=== PATIENT | female | born 1940 | race Caucasian/White ===

== ENCOUNTER 2021-01-28 13:59 | Outpatient (RCR) | payer MEDICARE, SELFPAY ==
--- NOTE | 2021-01-28 15:12 | PTOPEVAL ---
Thank you for referring Nara Post to [facility].? The patient is scheduled to be seen for therapy? ____x/week for ___ weeks. Please review, sign, date and return this plan of care MIRZA. I agree with and certify that the following plan of care is medically necessary. Referring Physician Date Admitting Provider: Attending Provider: Salomón Meehan, MD Referring Provider: *PT Outpatient Evaluation Start: 01/28/21 14:09 Freq: Status: Active Protocol: Document 01/28/21 14:09 [facility] (Rec: 01/28/21 15:02 [facility] [id number]) Therapy Assessment Status Assessment Status Assessment Status Evaluation Evaluation Information Problem Diagnosis lumbar radiculopathy, L side Onset 11/28/20 Additional Evaluation Detail oswestry = 42% functionally declined Subjective Information patient reports she has been Query Text:As Reported By Patient/ having pain in the L posterior Family hip/buttock since before . she reports no injury or change in activity. she reports sudden onset of pain in the L posterior hip/ buttock. she reports she has never had this pain in the past. she reports the pain was going down her L Le, but has been happening less lately. she reports she has increased pain with riding in the car, getting up from a chair and trying to get moving. she reports she did have xrays of the lumbar spine. she reports she also began taking a few new meds recently. Prior Level of Function Comments Additional Prior Level of Function prior to november, no issues in Comments the lower back, L LE, and L buttock. she reports not having any issues on the R LE. Pain Assessment Timing of Pain Assessment Timing of Pain Assessment Assessment Pain Scale Pain Scale Used Numeric (1 - 10) Self Report Pain Assessment Left Lower Back Reported Pain Level 7 Pain Radiation Left Leg Greatest Pain Intensity 8 Pain Score Pain Score 7: Self Report Interventions Used Interventions Used By Clinicians Heat,Rest Pain Relief Interventions Used By Lying Supine Patient Cervical and Lumbar ROM Lumbar ROM Lumbar Flexion Ac
--- NOTE | 2021-02-27 15:04 | PTOPEVAL ---
Thank you for referring Nara Post to [facility].? The patient is scheduled to be seen for therapy? ____x/week for ___ weeks. Please review, sign, date and return this plan of care MIRZA. I agree with and certify that the following plan of care is medically necessary. Referring Physician Date Admitting Provider: Attending Provider: Salomón Meehan, Referring Provider: *PT Outpatient Evaluation Start: 01/28/21 14:09 Freq: Status: Active Protocol: Document 02/27/21 14:18 [facility] (Rec: 02/27/21 15:04 [facility] [id number]) Therapy Assessment Status Assessment Status Assessment Status Discharge Evaluation Information Problem Diagnosis lumbar radiculopathy, L side Onset 11/28/20 Additional Evaluation Detail oswestry = 22% functionally declined Subjective Information patient reports she feels Query Text:As Reported By Patient/ Good this date. she reports Family she has greatly improved since beginning therapy. she reports she is not compliant with her HEP, but reports she is un cleaning house and doing chores all day long that she doesnt have the energy. she reports her pain has been low except for on the nustep today she felt some pulling in the back of the L LE. Pain Assessment Timing of Pain Assessment Timing of Pain Assessment Assessment Pain Scale Pain Scale Used Numeric (1 - 10) Self Report Pain Assessment Left Lower Back Reported Pain Level 0 Greatest Pain Intensity 5 Pain Score Pain Score 0: Self Report Interventions Used Interventions Used By Clinicians Activity or ADL's,Education, Electrical Stimulation, Exercise,Heat,Rest Cervical and Lumbar Muscle Testing Lumbar Strength Upper Abdominal Strength 3+Fair+ Lower Abdominal Strength 3+Fair+ Lower Extremity Muscle Strength Testing Hip Strength Right Hip Flexion Strength 4 Good Hip Extension Strength 4 Good Hip Abduction Strength 4+ Good + Left Hip Flexion Strength 4 Good Hip Extension Strength 4 Good Hip Abduction Strength 4+ Good + Knee Strength Bilateral Knee Flexion Strength 5 Normal Knee Extension Strength 5 Normal Ankle Strength Bilateral Ankle Dorsiflexion Strength 5 Normal Ankle Plantarflexion Strength 5 Normal Muscle Length Testing Muscle Length Testing Left
== END 2021-02-27 18:00 | disposition home or self-care (01) ==
LOC: CHSPT 13:59
PROVIDERS: PCP Internal Medicine; Visit Provider Internal Medicine
DX: M54.50 Low back pain, unspecified (principal)
CPT/HCPCS: 97014; 97110; 97161; 97530; G0283

== ENCOUNTER 2021-09-18 16:28 | Emergency (ER) | payer MEDICARE, SELFPAY ==
--- NOTE | ~2021-09-18 | XR_ITS ---
EXAMINATION: XR ribs LT 2V INDICATION: Left chest pain TECHNIQUE: 3 views of the left ribs were obtained. COMPARISON: None. FINDINGS: Bone alignment is normal. No displaced rib fracture is identified. The left lung is clear. The cardiomediastinal silhouette is unremarkable. 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 IMPRESSION: 1. No evidence of displaced rib fracture. Reviewed, dictated and finalized at location A.
--- NOTE | 2021-09-18 16:34 | ED.FALL ---
HPI - Fall General Chief Complaint: Fall Stated Complaint: fell outside has left side chest and underarm Time Seen by Provider: 09/18/21 16:35 Source: patient and RN notes reviewed Mode of arrival: ambulatory Limitations: no limitations History of Present Illness complaint: fall Onset (ago): hour(s) (1) Fall from: standing Fall witnessed: yes, by family Place fall occurred: home Loss of consciousness: none Prolonged down time: no Symptoms prior to fall: none Context: tripped/slipped Location of injury: chest (left ribs) Severity: moderate Quality: dull and aching Associated symptoms (after fall): denies Related Data Home Medications Medication Instructions Recorded Confirmed gabapentin 100 mg capsule 100 mg PO DAILY 09/18/21 09/18/21 insulin glargine 100 unit/mL 18 unit subcut QAM 09/18/21 09/18/21 subcutaneous solution (Lantus U-100 Insulin) levothyroxine 75 mcg tablet 75 mcg PO DAILY 09/18/21 09/18/21 lovastatin 40 mg tablet 40 mg PO DAILY 09/18/21 09/18/21 metformin 500 mg tablet 500 mg PO BID 09/18/21 09/18/21 montelukast 10 mg tablet 10 mg PO DAILY 09/18/21 09/18/21 quinapril 10 mg tablet 10 mg PO DAILY 09/18/21 09/18/21 sitagliptin 100 mg tablet (Januvia) 100 mg PO DAILY 09/18/21 09/18/21 venlafaxine 75 mg capsule,extended 75 mg PO DAILY 09/18/21 09/18/21 release 24 hr Allergies Allergy/AdvReac Type Severity Reaction Status Date / Time naproxen Allergy Unknown Verified 09/18/21 16:45 Review of Systems Review of Systems: All systems reviewed & are unremarkable except as noted in HPI and below PMFSH Past Medical History Medical History (Updated 09/18/21 @ 17:05 by Salo Prince MD) Hyperlipidemia Hypertension Hypothyroidism Peripheral neuropathy Type 2 diabetes mellitus Surgical History Surgical History (Updated 09/18/21 @ 16:44 by Salo Prince MD) History of bilateral tubal ligation Social History Social History (Updated 09/18/21 @ 16:44 by Salo Prince MD) Smoking status: Never smoker Exam Const: General: healthy appearing, no acute distress and alert Nutritional Appearance: well nourished and obese morbidly obese Orientation/consciousness: patient oriented x3 Limitations: no limitations HENMT: Head: normal to inspection Ears: external ears normal Eyes: Conjunctivae: conjunctivae normal Pupils: Equal, round and reactive pupils present EOM: EOMs intact bilaterally Neck: Neck: normal visual inspection Chest: Chest palpation & inspection: tenderness rib left mid-axillary line involving the 6th rib and involving the 7th rib Resp: Effort & Inspection: normal respiratory effort Auscultation: clear to auscultation bilaterally Cardio: Rate: regular rate Rhythm: regular rhythm GI: GI Palp: Yes Soft to palpation and No Tenderness to palpation present (GI) Auscultation: normal bowel sounds Back/Spine/Pelvis: Cervical Spine: cervical ROM normal Thoracic/Lumbar Spine: thoraco-lumbar ROM normal Skin: General skin exam: normal color Rashes: no rashes Neuro: General: patient oriented x3, moves all extremities, no focal motor deficits and CN's II-XI intact bilaterally Speech: normal speech Gait exam (Neuro): Normal gait present Extrem: General: normal to inspection and no clubbing, cyanosis or edema Psych: Mental Status: mental status grossly normal Affect: normal affect Attitude: cooperative Discharge Plan Discharge Clinical Impression: Chest wall contusion Qualifiers: Encounter type: initial encounter Laterality: left Qualified Code(s): S20.212A - Contusion of left front wall of thorax, initial encounter Patient Disposition: Home, Self-Care Condition: Stable Instructions: Contusion in Adults (ED) Additional Instructions: use Tylenol and or Motrin as needed for pain. Take deep breaths to avoid pneumonia. Prescriptions: No Action metformin 500 mg tablet 500 mg PO BID venlafaxine 75 mg capsule,extended release 24hr 75 mg
[2021-09-18 16:42] VITALS: BP 123/81; PULSE 103; RESP 17; TEMP 36.3; O2SAT 98
[2021-09-18 17:05] VITALS: BP 123/81; PULSE 103; RESP 17; TEMP 36.3; O2SAT 98
== END 2021-09-18 17:08 | disposition home or self-care (01) ==
PROVIDERS: Emergency Provider Emergency Medicine; PCP Internal Medicine
DX: S20.212A Contusion of left front wall of thorax, initial encounter (principal); W19.XXXA Unspecified fall, initial encounter; E78.5 Hyperlipidemia, unspecified; I10 Essential (primary) hypertension; E03.9 Hypothyroidism, unspecified; E11.9 Type 2 diabetes mellitus without complications
CPT/HCPCS: 71100; 99283

== ENCOUNTER 2023-01-19 14:34 | Emergency (ER) | payer MEDICARE, SELFPAY ==
--- NOTE | ~2023-01-19 | CT_ITS ---
EXAMINATION: CT brain wo con DATE: 01/19/2023 15:44 INDICATION: Head injury. TECHNIQUE: Computed tomography (CT) of the head was performed without intravenous contrast. The mA wa s adjusted according to patient size. Iterative reconstruction technique was employed. The dose-lengt h product was 681.00 mGy-cm. COMPARISON: Head CT 12/07/2011 FINDINGS: There is an old infarct in left temporal occipital region. There is an old infarct involvin g left thalamus and posterior limb left internal capsule. There is a small old infarct in right front al lobe. There are scattered areas of low attenuation in the cerebral white matter. There is no intra cranial hemorrhage, acute infarction, or abnormal intracranial mass lesion. The ventricles are normal in size. There is mucosal thickening in the paranasal sinuses with volume loss in the maxillary sinu ses. There are likely changes of ocular lens replacement surgeries. The mastoid air cells are normal. IMPRESSION: 1. Old infarcts in the brain. 2. Moderate nonspecific cerebral white matter disease, which likely represents chronic small vessel i schemic disease. Reviewed, dictated and finalized at location A. OR [employer] NET DEVELOPER IMPRESSION: 1. Old infarcts in the brain. 2. Moderate nonspecific cerebral white matter disease, which likely represents chronic small vessel ischemic disease.
--- NOTE | ~2023-01-19 | CT_ITS ---
EXAMINATION: CT pelvis wo con DATE: 01/19/2023 15:44 INDICATION: Pelvis injury. TECHNIQUE: Computed tomography (CT) of the pelvis was performed without intravenous contrast. Automat ed exposure control and iterative reconstruction technique were employed. The dose-length product was 564.38 mGy-cm. COMPARISON: None FINDINGS: There is calcified atherosclerosis of the aorta and many of the other arteries. There is di verticulosis of the colon without evidence of diverticulitis. There are no pathologically enlarged ly mph nodes. There is no free intraperitoneal fluid. There is mild osteoarthritis of the hips. No fract ure. Osteitis pubis is noted. There is mild lumbar spondylosis. IMPRESSION: 1. No fracture. 2. Mild osteoarthritis of the hips. Reviewed, dictated and finalized at location A. ING ENGINEER
--- NOTE | ~2023-01-19 | XR_ITS ---
EXAMINATION: XR shoulder RT min 2V INDICATION: Right shoulder pain, initial encounter TECHNIQUE: Three views of the right shoulder are submitted. COMPARISON: None FINDINGS: There is an acute, traumatic, transverse surgical neck fracture of the proximal right humer us. The greater and lesser tuberosities appear to exist on separate fracture fragments. Glenohumeral alignment is normal. There is moderate osteoarthritis of the acromioclavicular joint. There is an age -indeterminate lateral fracture of the right ninth rib. IMPRESSION: 1. Comminuted fracture of the proximal right humerus. Reviewed, dictated and finalized at location B. H DIRECTOR
--- NOTE | ~2023-01-19 | XR_ITS ---
EXAMINATION: [id number] INDICATION: Right-sided chest pain TECHNIQUE: A frontal view of the chest and 3 views of the right ribs were obtained. COMPARISON: None. FINDINGS: There is an acute fracture of the proximal right humerus which is described on the dedicate d shoulder radiographs. There is an age-indeterminate lateral fracture of the right ninth rib. There is mild atelectasis of the left lung base. No pleural effusion or pneumothorax. The cardiomediastinal silhouette is normal. IMPRESSION: 1. Left basilar atelectasis. 2. Age indeterminate right ninth rib fracture. 3. Acute fracture of the proximal right humerus. Reviewed, dictated and finalized at location B. TRICIAN MARINE
[2023-01-19 14:34] VITALS: BP 130/46; PULSE 45; RESP 20; TEMP 36.5; O2SAT 96
--- NOTE | 2023-01-19 14:45 | ED.FALL ---
HPI - Fall General Chief Complaint: Fall Stated Complaint: fell Time Seen by Provider: 01/19/23 14:45 Source: patient Mode of arrival: ambulatory Limitations: no limitations History of Present Illness HPI Narrative: 82-year-old female with a history of diabetes mellitus, hypertension, dyslipidemia, hypothyroidism, and neuropathy with recurrent falls presented to the ER after she fell 10 30 this morning. She fell from standing position while trying to walk her dogs. She presents with -- head injury without any loss of consciousness. No neck or back pain -- right shoulder pain with decreased range of motion of the right shoulder. -- Right chest wall pain. Patient was able to stand up with assistance Onset (ago): hour(s) ( 5 hours ago) Fall from: standing Fall witnessed: no Place fall occurred: home Loss of consciousness: none Symptoms prior to fall: none Context: tripped/slipped Location of injury: head, chest and other ( right shoulder) Location of injury - extremities: Right: shoulder Severity: moderate Associated symptoms (after fall): unable to walk Related Data Home Medications Medication Instructions Recorded Confirmed gabapentin 100 mg capsule 100 mg PO HS 09/18/21 01/19/23 insulin glargine 100 unit/mL 18 unit subcut QAM 09/18/21 01/19/23 subcutaneous solution (Lantus U-100 Insulin) levothyroxine 75 mcg tablet 75 mcg PO DAILY 09/18/21 01/19/23 lovastatin 40 mg tablet 40 mg PO DAILY 09/18/21 01/19/23 montelukast 10 mg tablet 10 mg PO DAILY 09/18/21 01/19/23 venlafaxine 75 mg capsule,extended 75 mg PO DAILY 09/18/21 01/19/23 release 24 hr atorvastatin 80 mg tablet 80 mg PO DAILY 01/19/23 01/19/23 empagliflozin 10 mg tablet 10 mg PO DAILY 01/19/23 01/19/23 (Jardiance) levetiracetam 500 mg tablet 500 mg PO BID 01/19/23 01/19/23 metoprolol succinate 25 mg 25 mg PO DAILY 01/19/23 01/19/23 tablet,extended release 24 hr sacubitril 24 mg-valsartan 26 mg 1 tablet PO BID 01/19/23 01/19/23 tablet (Entresto) spironolactone 25 mg tablet 25 mg PO DAILY 01/19/23 01/19/23 Allergies Allergy/AdvReac Type Severity Reaction Status Date / Time naproxen Allergy Unknown Verified 01/19/23 15:02 Review of Systems Review of Systems: All systems reviewed & are unremarkable except as noted in HPI and below Constitutional: Constitutional: Reports as per HPI and Reports no additional constitutional complaints Eyes: Eyes: Reports as per HPI and Reports no additional eye complaints ENT: Reports system reviewed and no additional complaints, except as documented and Reports as per HPI Cardiovascular: Cardiovascular: Reports as per HPI Respiratory: Respiratory: Reports as per HPI and Reports no additional respiratory complaints Gastrointestinal: Gastrointestinal: Reports as per HPI and Reports no additional gastrointestinal complaints Genitourinary: Genitourinary: Reports no additional female genitourinary complaints Musculoskeletal: Musculoskeletal: Reports no additional musculoskeletal complaints and Reports as per HPI Integumentary/Breasts: Skin/Breast: Reports system reviewed and no additional complaints, except as docu and Reports as per HPI Neurologic: Reports system reviewed and no additional complaints, except as documented and Reports as per HPI Psychiatric: Psychiatric: Reports no additional psychiatric complaints and Reports as per HPI Endocrine: Endocrine: Reports no additional endocrine complaints and Reports as per HPI Hematologic/Lymphatic: Hematologic/Lymphatic: Reports no additional hematologic/lymphatic complaints and Reports as per HPI Allergic/Immunologic: Allergic/Immunologic: Reports no additional allergic/immunologic complaints and Reports as per HPI [facility] Past Medical History Medical History Hyperlipidemia Hypertension Hypothyroidism Peripheral neuropathy Type 2 diabetes mellitus Surgical History Surgical History (Review
[2023-01-19] MEDS: HYDROcodone/acetaminophen (*CRX) 5-325 MG TABLET 1 TAB PO (16:23)
[2023-01-19 16:41] VITALS: BP 128/48; PULSE 50; RESP 20; TEMP 36.7; O2SAT 96
== END 2023-01-19 16:43 | disposition home or self-care (01) ==
PROVIDERS: Emergency Provider Internal Medicine Critical Care Medicine; PCP Internal Medicine
DX: R07.89 Other chest pain (principal); S42.201A Unspecified fracture of upper end of right humerus, initial encounter for closed fracture; E11.9 Type 2 diabetes mellitus without complications; I10 Essential (primary) hypertension; E03.9 Hypothyroidism, unspecified; Z79.899 Other long term (current) drug therapy; Z79.4 Long term (current) use of insulin; W18.30XA Fall on same level, unspecified, initial encounter; Y93.K1 Activity, walking an animal
CPT/HCPCS: 70450; 71101; 72192; 73030; 99284; A4565; A9270

== ENCOUNTER 2023-02-12 18:19 | Inpatient (IN) | payer MEDICARE, SELFPAY ==
--- NOTE | ~2023-02-12 | CT_ITS ---
EXAMINATION: CTA chest PE protocol DATE: 02/18/2023 17:24 INDICATION: shortness of breath, chest pain TECHNIQUE: Computed tomography angiography (CTA) of the chest was performed with 100 mL Omnipaque-350 intravenous contrast timed to evaluate the pulmonary arteries. Coronal maximum intensity projection 3D-reconstructions were created by the technologist. The dose-length product (DLP) was 795.98 mGy-cm. Automated exposure control and iterative reconstruction technique were employed. COMPARISON: X-ray chest 02/18/2023. FINDINGS: Lung parenchyma and airways: Motion artifact. Dependent scar/atelectasis. Pleura: Small volume right pleural fluid collection. Thoracic inlet, axillae and chest wall: Unremarkable. Thoracic aorta: Mild arch calcification. Mediastinum: Normal. Heart and pericardium: Mitral calcification. Aortic valve calcification. Mild cardiomegaly. No perica rdial effusion. RV/LV ratio 1.3. Coronary artery calcifications: . Upper abdomen: Hepatic vein reflux. Distended gallbladder. Bones: Acute comminuted proximal right humeral fracture. Pulmonary arteries: Study quality: Adequate. Acute pulmonary emboli in the distal left and right main pulmonary arteries, extending into segmental and subsegmental branches of all lobes. IMPRESSION: Acute pulmonary emboli in the distal bilateral main pulmonary arteries extending into segmental and s ubsegmental branches of all lobes. Large clot burden. Evidence of right heart strain. RV/LV ratio 1.3 . Small right pleural effusion. Gallbladder hydrops, correlate with right upper quadrant pain and biliary labs. Acute comminuted proximal right humeral fracture. Results reported telephonically to Brenda Barrera RN by Dr. Loza at 5:39 PM on 02/18/2023. Reviewed, dictated and finalized at location K. SORTER IMPRESSION: Acute pulmonary emboli in the distal bilateral main pulmonary arteries extendin g into segmental and subsegmental branches of all lobes. Large clot burden. Lanette dence of right heart strain. RV/LV ratio 1.3. Small right pleural effusion. Gallbladder hydrops, correlate with right upper quadrant pain and biliary labs. Acute comminuted proximal right humeral fracture. Results reported telephonically to Brenda Barrera RN by Dr. Loza at 5:39 PM on 02/18/2023.
--- NOTE | ~2023-02-12 | XR_ITS ---
EXAMINATION: XR ankle RT min 3V DATE: 02/16/2023 10:45 INDICATION: Right ankle pain and swelling. Fall. TECHNIQUE: 4 views of right ankle were obtained. COMPARISON: None. FINDINGS: Bone alignment is normal. No fracture. Joint spaces are normal. There are enthesophytes at the posterior and plantar aspects of calcaneal tuberosity. Ankle soft tissue swelling is noted. IMPRESSION: 1. No fracture. Reviewed, dictated and finalized at location A. R RESOURCE MANAGER IMPRESSION: 1. No fracture.
--- NOTE | ~2023-02-12 | XR_ITS ---
Portable chest x-ray Comparison: 02/18/2023 Clinical History: PICC line placement Findings: Left-sided PICC line is in place, tip just in the SVC. There is probable minimal left basi lar atelectatic change or scarring. Right lung clear. No pneumothorax. Cardiomediastinal silhouette is stable. Bones and soft tissues are unremarkable. Impression: Left-sided PICC line in satisfactory position, as above. Probable left basilar atelectatic change. Reviewed, dictated and finalized at location . MAGENTO DEVELOPER Impression: Left-sided PICC line in satisfactory position, as above. Probable left basilar atelectatic change.
--- NOTE | ~2023-02-12 | XR_ITS ---
AP view of the pelvis and AP and lateral views of the right hip Clinical history: Pain Findings: No acute fracture or dislocation is seen. Osseous alignment is anatomic. Bilateral hip and SI joint spaces are preserved. Soft tissues are unremarkable. Impression: No significant abnormality is seen. Reviewed, dictated and finalized at [facility]. DER LABORER Impression: No significant abnormality is seen.
--- NOTE | ~2023-02-12 | CT_ITS ---
CT head without contrast Indication: Head injury COMPARISON: 01/19/2023 Technique: Serial scans were obtained through the brain without the administration of contrast. Dose reduction technique was used on this scan by utilizing automated exposure control and iterative recon struction technique. The dose-length product (DLP) was 605.33 mGy-cm. Findings: There is no evidence of intracranial hemorrhage, mass lesion, or acute infarct. Stable deli cutter slicer maxime left occipital lobe infarct. The ventricles and subarachnoid spaces are dilated, consistent with mild atrophy. Low attenuation regions are seen within the periventricular white matter bilaterally, likely representing changes from chronic microvascular ischemic disease. There is no evidence of rebekah a, mass effect or midline shift. Stable bilateral maxillary sinus disease. The remaining visualized paranasal sinuses and mastoid air cells are clear. Impression: No intracranial hemorrhage, mass, or acute infarct. Stable occipital lobe infarct, chronic. Atrophy and chronic white matter changes, as above. Reviewed, dictated and finalized at [facility]. PERSON Impression: No intracranial hemorrhage, mass, or acute infarct. Stable occipital lobe infar ct, chronic. Atrophy and chronic white matter changes, as above.
--- NOTE | ~2023-02-12 | XR_ITS ---
Left ankle Technique: AP, oblique, and lateral views were obtained. Clinical History: Pain Findings: No acute fracture or dislocation is seen. Osseous alignment is anatomic. Ankle mortise and other visualized joint spaces are preserved. Soft tissues are otherwise unremarkable. Impression: Unremarkable left ankle. Reviewed, dictated and finalized at location . RATORY DIRECTOR Impression: Unremarkable left ankle.
--- NOTE | ~2023-02-12 | US_ITS ---
Duplex Sonography of the bilateral lower extremities: Indication: Swelling, pulmonary embolus Sagittal and transverse B-mode images as well as color-flow imaging were performed on the right and l eft femoral and popliteal veins. B-mode examination was done without and with compression in the tra nsverse plane. There is good visualization of the bilateral common femoral, proximal profunda femora l, superficial femoral, greater saphenous, and popliteal veins. Normal flow was seen on color-flow im aging. Normal compressibility was demonstrated. Visualized calf veins are also patent. Impression: No evidence of deep vein thrombosis involving either lower extremity. Reviewed, dictated and finalized at location M. K TOP MACHINE OPERATOR Impression: No evidence of deep vein thrombosis involving either lower extremit y.
--- NOTE | ~2023-02-12 | MR_ITS ---
EXAMINATION: MR cervical spine wo con DATE: 02/14/2023 12:40 INDICATION: Head injury. TECHNIQUE: Magnetic resonance imaging (MRI) of the cervical spine was performed without intravenous c ontrast. COMPARISON: CT cervical spine 02/12/23, 12/07/2011 FINDINGS: There is 5 degrees levocurvature of cervicothoracic spine. There is 2 mm anterolisthesis of C4 on C5. There is kyphosis of cervical spine. There are compression fractures of the inferior endpl ates of C6, C7, and T1 with less than 1/5 loss of height and edema-like marrow signal intensity. Ther e is moderately decreased disc height at C3-C4 and C5-C6 and mildly decreased disc height at C6-C7. T he spinal cord signal intensity is normal.. The following disc levels are specifically discussed: C2-C3: There is a central protrusion. There is no uncovertebral joint osteoarthritis. There is modera te right and severe left facet joint osteoarthritis. There is mild left neural foraminal stenosis. Th ere is no central canal stenosis. C3-C4: There is a central extrusion. There is severe right and mild left uncovertebral joint osteoart hritis. There is mild left facet joint osteoarthritis. There is ankylosis of right facet joint with s evere hypertrophy. There is moderate right neural foraminal stenosis. There is mild central canal sabiha nosis. C4-C5: The disc is bulging. There is mild bilateral uncovertebral joint osteoarthritis. There is anastacio re right and mild left facet joint osteoarthritis. There is mild right neural foraminal stenosis. The re is mild central canal stenosis. C5-C6: The disc is bulging. There is severe right and moderate left uncovertebral joint osteoarthriti s. There is severe right and mild left facet joint osteoarthritis. There is mild right neural foramin al stenosis. There is mild central canal stenosis. C6-C7: The disc is bulging. There is mild bilateral uncovertebral joint osteoarthritis. There is mild bilateral facet joint osteoarthritis. There is mild left neural foraminal stenosis. There is mild ce ntral canal stenosis. C7-T1: The disc does not extend beyond the endplate margin. There is no uncovertebral joint osteoarth ritis. There is moderate right and mild left facet joint osteoarthritis. There is mild right neural f oraminal stenosis. There is no central canal stenosis. IMPRESSION: 1. Acute/subacute compression fractures of C6, C7, and T1 with less than 1/5 loss of height. 2. Moderate cervical spondylosis. Reviewed, dictated and finalized at location A. STOR INSPECTOR IMPRESSION: 1. Acute/subacute compression fractures of C6, C7, and T1 with less than 1/5 lo ss of height. 2. Moderate cervical spondylosis.
--- NOTE | ~2023-02-12 | CT_ITS ---
Noncontrast CT scan of the cervical spine Technique: Multiple contiguous axial [address] images of the cervical spine were obtained and rec onstructed in 2D sagittal and coronal planes on the acquisition scanner. Dose reduction technique was used on this scan by utilizing automated exposure control, adjustment of the mA and/or kV according to patient size. The dose-length product (DLP) was 517.41 mGy-cm. Clinical History: Pain Findings: Possible acute compression/impaction fracture at the anteroinferior aspect of C6 vertebral body. No other fracture evident. There is reversal normal cervical lordosis, with minimal grade 1 ant erolisthesis of C4 over C5, and of C5 over C6. There is moderate degenerative disc narrowing at C5-C6 and C6-C7. There are degenerative change of the articulation of the odontoid process with the anteri or arch of C1. There is right neural foraminal narrowing at C3-C4 prominent right facet arthropathy. There is fusion of the right C3-C4 facet joint. No prevertebral soft tissue swelling. Impression: Questionable acute compression/impaction fracture deformity at the anterior inferior aspect of the C6 vertebral body, versus possibly chronic loss of height and chronic irregularity. Consider MR to asse ss for acute marrow edema. Reversal of the normal cervical lordosis, with minimal grade 1 anterolisthesis of C4 over C5, and of C5 over C6. Degenerative spondylosis, as above. Reviewed, dictated and finalized at [facility]. ICULTURAL SPECIALTY GROWER Impression: Questionable acute compression/impaction fracture deformity at the anterior inf erior aspect of the C6 vertebral body, versus possibly chronic loss of height a nd chronic irregularity. Consider MR to assess for acute marrow edema. Reversal of the normal cervical lordosis, with minimal grade 1 anterolisthesis of C4 over C5, and of C5 over C6. Degenerative spondylosis, as above.
--- NOTE | ~2023-02-12 | XR_ITS ---
EXAMINATION: XR chest 1V portable DATE: 02/18/2023 10:15 INDICATION: New oxygen requirement TECHNIQUE: frontal view of the chest was obtained. COMPARISON: Chest radiograph dated 02/18/2023 at 6:55 AM FINDINGS: No change in mild elevation the left hemidiaphragm with bandlike atelectasis at the left lung base. N o airspace opacities, pulmonary edema, pleural effusion or pneumothorax. The cardiomediastinal silhou ette is normal. Again seen is a recent-appearing comminuted fractures of the proximal right humerus. IMPRESSION: 1. Unchanged left basilar atelectasis with mild elevation the left hemidiaphragm. Reviewed, dictated and finalized at location A. PTION AGENT IMPRESSION: 1. Unchanged left basilar atelectasis with mild elevation the left hemidiaphrag m.
--- NOTE | ~2023-02-12 | XR_ITS ---
Right Knee Technique: AP, lateral, and oblique views were obtained. Clinical History: Pain Findings: No fracture or dislocation is seen. Osseous alignment is anatomic. Joint spaces are preserv ed without degenerative or erosive change. Soft tissues are unremarkable. No joint effusion is seen. Impression: Unremarkable right knee radiographs. Reviewed, dictated and finalized at [facility]. T HOST Impression: Unremarkable right knee radiographs.
--- NOTE | ~2023-02-12 | XR_ITS ---
Portable chest x-ray Comparison: 02/12/2023 Clinical History: Chest pain Findings: There is probable linear left basilar atelectasis, otherwise clear lungs. Cardiomediastin al silhouette is stable. There is an acute, comminuted fracture involving the surgical neck and great er tuberosity of the proximal right humerus.. Impression: Acute, comminuted fracture involving the surgical neck and greater tuberosity of the proximal right h umerus. Linear left basilar atelectasis or scarring, otherwise clear lungs. Reviewed, dictated and finalized at location M. E DESIGNER Impression: Acute, comminuted fracture involving the surgical neck and greater tuberosity o f the proximal right humerus. Linear left basilar atelectasis or scarring, otherwise clear lungs.
--- NOTE | ~2023-02-12 | XR_ITS ---
Portable chest x-ray Comparison: None Clinical History: Syncope Findings: Probable minimal left pleural effusion. Right lung clear. Cardiomediastinal silhouette is stable. Bones and soft tissues are unremarkable. Impression: Minimal left pleural effusion. Reviewed, dictated and finalized at location . PASTE MACHINE OPERATOR Impression: Minimal left pleural effusion.
[2023-02-12 18:19] VITALS: BP 107/86; PULSE 72; RESP 22; TEMP 36.4; O2SAT 97
--- NOTE | 2023-02-12 18:28 | ECG_ITS ---
Measurements Intervals [place] Rate: 71 P: 55 KS: 196 QRS: -33 QRSD: 171 T: 138 QT: 414 QTc: 453 Interpretive Statements SINUS RHYTHM LEFT AXIS DEVIATION LEFT BUNDLE BRANCH BLOCK BASELINE ARTIFACT- I, II, III, AVR, AVL, AVF ABNORMAL ECG NO PREVIOUS ECG AVAILABLE FOR COMPARISON Electronically Signed On 02-12-2023 19:08:25 COKE LOADER by Nelson Luna D.O.
[2023-02-12 18:39] LABS: Basophils Percent Auto 0.5 % (0.2-1.2); Eosinophils Absolute Auto 0.3 K/mm3 (0-0.3); Eosinophils Percent Auto 4.1 % (0-4.4); Hematocrit 37.5 % (37.0-47.0); Hemoglobin 11.6 g/dL (12.0-15.0); Immature Granulocyte Absolute 0.04 K/mm3 (0.00-0.031); Immature Granulocyte Percent A 0.6 % (0-0.5); Lymphocytes Absolute Auto 1.64 K/mm3 (0.9-3.2); Lymphocytes Percent Auto 25.2 % (18.3-44.2); Mean Corpuscular HGB Conc 30.9 g/dl (32-36); Mean Corpuscular Hemoglobin 29.1 pg (26-34); Mean Corpuscular Volume 94.2 fl (80-100); Mean Platelet Volume 9.3 fl (7.4-10.4); Monocytes Absolute Auto 0.6 K/mm3 (0.1-0.6); Monocytes Percent Auto 8.4 % (2.6-8.5); Neutrophils Percent Auto 61.2 % (45.5-73.1); Platelet Count Result 248 k/mm3 (150-375); Red Blood Count 3.98 M/mm3 (4.2-5.4); Red Cell Distribution Width 14.4 % (11.5-14.5); White Blood Count 6.5 K/mm3 (4.5-10.0)
[2023-02-12 19:02] LABS: Alanine Aminotransferase 43 U/L (6-35); Albumin Level 4.2 g/dL (3.5-5.1); Alkaline Phosphatase 229 U/L (38-126); Anion Gap 12 mmol/L (8-16); Aspartate Amino Transferase 37 U/L (14-36); Bilirubin,Total 0.6 mg/dL (0.2-1.3); Blood Urea Nitrogen 51 mg/dL (7-17); Calcium 9.5 mg/dL (8.4-10.2); Carbon Dioxide 19 mmol/L (22-30); Chloride 105 mmol/L (98-107); Estimated CRCL calculation 16 ml/min; Estimated Glomerular Filt Rate 18; Glucose 170 mg/dL (65-110); Potassium 5.3 mmol/L (3.4-5.0); Sodium 136 mmol/L (137-145)
--- NOTE | 2023-02-12 19:27 | PC.NURSE ---
Assumed care of pt from TRELL Duncan at this time.
[2023-02-12] MEDS: SODIUM CHLORIDE 0.9% IV 1,000 ML 999 ML IV CONT (20:13)
[2023-02-12] MEDS: TETANUS,DIPHTHERIA,AC PERTUSSIS ADULT (0.5 ML) BOOSTRIX IM (20:13)
[2023-02-12 20:14] VITALS: BP 132/56; PULSE 71; RESP 15; O2SAT 95
[2023-02-12 20:44] LABS: Appearance Urine Cloudy (Clear); Bacteria Urine 4+ /hpf; Bilirubin Urine Negative (Negative); Blood Urine Negative (Negative); Color Urine Yellow (Yellow); Glucose Urine UA 3+ mg/dL (Negative); Ketones Urine Negative (Negative); Leukocyte Esterase Ur 1+ LEU/UL (Negative); Nitrate Urine Negative (Negative); Non Pathogenic Casts 0-2; Protein Urine 1+ mg/dL (Negative); RBC Urine 0-2 /hpf (0-2); Specific Grav Ur 1.021 (1.001-1.035); Squamous Epithelial Cell Urine None seen /hpf (Few); Urobilinogen Urine 0.2 mg/dL (<2.0); WBC Urine 51-100 /hpf
--- NOTE | 2023-02-12 20:47 | ED.GENADULT ---
HPI - General Adult General Chief complaint: Syncope Stated complaint: syncope Time Seen by Provider: 02/12/23 19:16 History of Present Illness HPI narrative: Patient is 83-year-old female who presents emergency department with chief complaint of possible syncopal episode. Patient reports that she started feeling dizzy which she described as a strain sensation in her head the patient states she then fell to the ground and struck her head. The patient reports that she had bleeding from the back of her scalp is unsure whether she was on blood thinners she does report that she has had a prior stroke in the past the patient reports that about 2 weeks ago she had had a ground level fall secondary to tripping and had a fracture in her right humerus the patient states that she has pain in her right hip right knee and left ankle after the injury is unsure of her last tetanus status. Related Data Home Medications Medication Instructions Recorded Confirmed gabapentin 100 mg capsule 100 mg PO HS 09/18/21 01/19/23 insulin glargine 100 unit/mL 18 unit subcut QAM 09/18/21 01/19/23 subcutaneous solution (Lantus U-100 Insulin) levothyroxine 75 mcg tablet 75 mcg PO DAILY 09/18/21 01/19/23 lovastatin 40 mg tablet 40 mg PO DAILY 09/18/21 01/19/23 montelukast 10 mg tablet 10 mg PO DAILY 09/18/21 01/19/23 venlafaxine 75 mg capsule,extended 75 mg PO DAILY 09/18/21 01/19/23 release 24 hr atorvastatin 80 mg tablet 80 mg PO DAILY 01/19/23 01/19/23 empagliflozin 10 mg tablet 10 mg PO DAILY 01/19/23 01/19/23 (Jardiance) levetiracetam 500 mg tablet 500 mg PO BID 01/19/23 01/19/23 metoprolol succinate 25 mg 25 mg PO DAILY 01/19/23 01/19/23 tablet,extended release 24 hr sacubitril 24 mg-valsartan 26 mg 1 tablet PO BID 01/19/23 01/19/23 tablet (Entresto) spironolactone 25 mg tablet 25 mg PO DAILY 01/19/23 01/19/23 Allergies Allergy/AdvReac Type Severity Reaction Status Date / Time naproxen Allergy Unknown Verified 02/12/23 18:32 Review of Systems Review of Systems: A 10 system review of systems was completed on the patient and is negative except for what is stated in the HPI. Nursing and ancillary documentation was reviewed. [facility] Past Medical History Medical History Hyperlipidemia Hypertension Hypothyroidism Peripheral neuropathy Type 2 diabetes mellitus Surgical History Surgical History History of bilateral tubal ligation Social History Social History Smoking status: Never smoker Exam Narrative: GENERAL: Well-appearing, well-nourished, and in no acute distress. HEAD: Normocephalic, 1 cm laceration of the scalp. EYES: PERRLA and EOMI. ENT: Nares clear, no rhinorrhea or epistaxis. Mucous membranes moist. NECK: Supple. CHEST: Clear to auscultation. No respiratory distress. HEART: Regular rate and rhythm. No murmur heard. Normal peripheral pulses. ABDOMEN: Soft, nontender, nondistended, normal active bowel sounds. EXTREMITIES: Normal range of motion. No edema. Right upper extremity is in sling tenderness palpation of the right hip, right knee and left ankle no deformity SKIN: Warm, dry, no rash. NEURO: No focal deficits. Alert and oriented x3. PSYCH: Normal mood and affect. Course Vital Signs Vital signs: Vital Signs Temperature 36.4 C 02/12/23 18:19 Pulse Rate 72 02/12/23 18:19 Respiratory Rate 22 H 02/12/23 18:19 Blood Pressure 107/86 02/12/23 18:19 Pulse Oximetry 97 02/12/23 18:19 Oxygen Delivery Room Air 02/12/23 18:19 Temperature 36.4 C 02/12/23 18:19 Pulse Rate 71 02/12/23 20:14 Respiratory Rate 15 02/12/23 20:14 Blood Pressure 132/56 L 02/12/23 20:14 Pulse Oximetry 95 02/12/23 20:14 Oxygen Delivery Room Air 02/12/23 18:19 Procedures Laceration Laceration
[2023-02-12 20:48] LABS: Add Urine Microscopic? YES
[2023-02-12 20:49] LABS: Magnesium 2.4 mg/dL (1.6-2.3)
[2023-02-12 20:50] LABS: Lactic Acid Reflex 0.9 mmol/L (0.7-2.0)
[2023-02-12 21:01] LABS: Troponin I < 0.012 ng/mL (0.000-0.034)
[2023-02-12 21:07] LABS: Procalcitonin 0.1 ng/mL
[2023-02-12 21:38] VITALS: BP 110/83; PULSE 105; RESP 18; TEMP 37.1; O2SAT 92
[2023-02-12 22:07] VITALS: BP 109/92; PULSE 74; RESP 20; O2SAT 97
[2023-02-12 22:24] VITALS: PULSE 71; RESP 16; O2SAT 100
--- NOTE | 2023-02-12 22:38 | PC.NURSE ---
This patient, Nara Post, was admitted to [facility] Surg Room 304-01. Patient/family oriented to hospital policies and general routines including ID bracelet, bed and alarms, visiting hours, pain management, procedures, bathroom and other care routines, personal items, smoking policy, room service/diet, and visiting hours. Information on how to activate the Rapid Response Team has been discussed. Patient/Family are encouraged to report perceived risks to care and to ask questions if they do not understand what they are told or what they should do.
[2023-02-12 22:51] VITALS: BMI 31.4
--- NOTE | 2023-02-12 22:53 | PC.NURSE ---
called Vishnu, verified medication in computer is up to date.
[2023-02-12] MEDS: SODIUM CHLORIDE 0.9% IV 1,000 ML 75 ML IV CONT (22:55)
[2023-02-12 23:00] VITALS: BP 148/51; PULSE 88; RESP 18; TEMP 36; O2SAT 92
--- NOTE | 2023-02-12 23:19 | PC.NURSE ---
reverified medication with Daughter Shannan Garcia,
--- NOTE | 2023-02-12 23:24 | PC.NURSE ---
patient states wants daughter added to contacts, informed battery charger conveyor line James
[2023-02-12] MEDS: ONDANSETRON INJ 4 MG/2 ML VIAL IV PUSH (23:25)
[2023-02-13] VITALS (10 sets, daily range): BP systolic 119–131; BP diastolic 44–52; PULSE 79–94; RESP 14–20; TEMP 35.7–36.2; O2SAT 90–92
--- NOTE | 2023-02-13 01:11 | PM.IMHP ---
H&P: HPI History of Present Illness Date/Time: 02/13/23 01:11 Chief Complaint: [place] lightheaded and fell Narrative: 83-year-old female with a past medical history Review of Systems Review of Systems: 12 systems were reviewed with pertinent positives and negatives per HPI. Except as documented in the HPI, all other systems were reviewed and are negative. [facility] Past Medical History Medical History (Updated 02/13/23 @ 07:33 by Silvia Jamil DO) CVA (cerebral vascular accident) Hyperlipidemia Hypertension Hypothyroidism Peripheral neuropathy Type 2 diabetes mellitus Vitamin D deficiency Surgical History Surgical History (Updated 02/13/23 @ 07:33 by Silvia Jamil DO) History of bilateral tubal ligation Status post cataract extraction of both eyes with insertion of intraocular lens Social History Social History (Updated 02/13/23 @ 07:38 by Silvia Jamil DO) Social History: Patient lives at home with her of over 60 years. She stated that she briefly smoked for a couple of years when she was young. She denies any significant alcohol use. She ambulates with a Rollator. Code status: DNR/DNI (per patient request) Surrogate decision maker: Smoking status: Former smoker Alcohol intake: never Substance use: never Do You Feel Safe in your Home?: Yes Lack of Transportation: No Lack of Food: Never True Current Housing: I Have Housing Concerned About Future Housing: No Difficulty Paying Gas/Electric Bills: No Difficulty Paying for Meds: No Currently Unemployed: No Education: High School Diploma/GED Difficulty w/ Childcare or Family Care: No Spiritual care concerns: No Meds Home Medications and Allergies Home Medications Medication Instructions Recorded Confirmed Type gabapentin 100 mg capsule 100 mg PO HS 09/18/21 02/12/23 History insulin glargine 100 unit/mL 18 unit subcut QAM 09/18/21 02/12/23 History subcutaneous solution (Lantus U-100 Insulin) levothyroxine 75 mcg tablet 75 mcg PO DAILY 09/18/21 02/12/23 History montelukast 10 mg tablet 10 mg PO DAILY 09/18/21 02/12/23 History venlafaxine 75 mg capsule,extended 75 mg PO DAILY 09/18/21 02/12/23 History release 24 hr atorvastatin 80 mg tablet 80 mg PO DAILY 01/19/23 02/12/23 History empagliflozin 10 mg tablet 10 mg PO DAILY 01/19/23 02/12/23 History (Jardiance) levetiracetam 500 mg tablet 500 mg PO BID 01/19/23 02/12/23 History metoprolol succinate 25 mg 25 mg PO DAILY 01/19/23 02/12/23 History tablet,extended release 24 hr sacubitril 24 mg-valsartan 26 mg 1 tablet PO BID 01/19/23 02/12/23 History tablet (Entresto) spironolactone 25 mg tablet 25 mg PO DAILY 01/19/23 02/12/23 History cholecalciferol (vitamin D3) 25 25 mcg PO DAILY 02/12/23 02/12/23 History mcg (1,000 unit) tablet Allergies Allergy/AdvReac Type Severity Reaction Status Date / Time naproxen Allergy Unknown Verified 02/12/23 18:32 Vital Signs Vital Signs - 24 hr 02/12/23 18:19 02/12/23 20:14 02/12/23 21:38 Temperature 97.6 F 98.7 F Pulse Rate 72 71 105 H Respiratory Rate 22 H 15 18 Blood Pressure 107/86 132/56 L 110/83 Pulse Oximetry 97 95 92 Oxygen Delivery Room Air 02/12/23 22:07 02/12/23 22:24 02/12/23 23:00 Temperature 96.8 F L Pulse Rate 74 71 88 Respiratory Rate 20 16 18 Blood Pressure 109/92 H 148/51 H Pulse Oximetry 97 100 92 Oxygen Delivery 02/13/23 00:00 Temperature Pulse Rate 84 Respiratory Rate Blood Pressure Pulse Oximetry Oxygen Delivery Exam Narrative: Weight is 85.5 kg BMI 31.4 Const: Other: No acute distress, obese, appears stated age, well groomed, sitting up in bed with head of bed at 30 degree HENMT: Other: Patient has small laceration posterior parietal/occipital with [address], pupils are equal and reactive with evidence of prior cataract replacement Eyes: Other: Pupils are equal and reac
[2023-02-13 06:13] LABS: Basophils Percent Auto 0.5 % (0.2-1.2); Eosinophils Absolute Auto 0.3 K/mm3 (0-0.3); Eosinophils Percent Auto 2.8 % (0-4.4); Hematocrit 35.3 % (37.0-47.0); Hemoglobin 10.9 g/dL (12.0-15.0); Immature Granulocyte Absolute 0.04 K/mm3 (0.00-0.031); Immature Granulocyte Percent A 0.5 % (0-0.5); Lymphocytes Absolute Auto 1.59 K/mm3 (0.9-3.2); Lymphocytes Percent Auto 17.9 % (18.3-44.2); Mean Corpuscular HGB Conc 30.9 g/dl (32-36); Mean Corpuscular Hemoglobin 29.6 pg (26-34); Mean Corpuscular Volume 95.9 fl (80-100); Mean Platelet Volume 9.1 fl (7.4-10.4); Monocytes Absolute Auto 0.8 K/mm3 (0.1-0.6); Monocytes Percent Auto 8.7 % (2.6-8.5); Neutrophils Absolute Auto 6.2 K/mm3 (1.3-6.7); Neutrophils Percent Auto 69.6 % (45.5-73.1); Platelet Count Result 206 k/mm3 (150-375); Red Blood Count 3.68 M/mm3 (4.2-5.4); Red Cell Distribution Width 14.3 % (11.5-14.5); White Blood Count 8.9 K/mm3 (4.5-10.0)
[2023-02-13 06:23] LABS: Anion Gap 7 mmol/L (8-16); Blood Urea Nitrogen 43 mg/dL (7-17); Calcium 8.7 mg/dL (8.4-10.2); Carbon Dioxide 18 mmol/L (22-30); Chloride 112 mmol/L (98-107); Estimated CRCL calculation 21 ml/min; Estimated Glomerular Filt Rate 24; Glucose 89 mg/dL (65-110); Sodium 137 mmol/L (137-145)
[2023-02-13] MEDS: ATORVASTATIN 40 MG TABLET 80 MG PO (10:09)
[2023-02-13] MEDS: EMPAGLIFLOZIN 10 MG TABLET PO (10:10)
[2023-02-13] MEDS: CHOLECALCIFEROL 1,000 UNITS TABLET 1000 UNITS PO (10:10)
[2023-02-13] MEDS: MONTELUKAST SODIUM 10 MG TABLET PO (10:10)
[2023-02-13] MEDS: SACUBITRIL/VALSARTAN 24-26 MG TABLET 1 TAB PO ×2 (10:10→20:56)
[2023-02-13] MEDS: VENLAFAXINE HCL XR 75 MG CAP.ER.24H PO (10:10)
[2023-02-13] MEDS: LEVOTHYROXINE SODIUM 75 MCG TABLET PO (10:10)
[2023-02-13] MEDS: levETIRAcetam 500 MG TABLET PO ×2 (10:10→20:56)
[2023-02-13] MEDS: METOPROLOL SUCCINATE EXT REL 25 MG TABCR PO (10:10)
[2023-02-13 11:57] LABS: Glucose Point of Care 223 mg/dl (65-105)
--- NOTE | 2023-02-13 13:22 | WPDURCON ---
Assessment and Plan Assessment and plan (1) Overactive bladder: Code(s): N32.81 - Overactive bladder Status: Acute Assessment and Plan: History most c/w overactive bladder with urgency/urge incontinence. Will start Myrbetriq (beta-3 agonist med. for overactive bladder without potential for cognitive issues). Catheter out, from our standpoint, anytime. Urology Consult Note HPI Date Seen: 02/13/23 Requesting Physician: Silvia Jamil DO Primary Care Provider: Salomón Meehan, Consult Narrative Narrative: Nara Post is a 83 year old female, who is previously unknown to our practice, admitted after several recent falls. We were consulted for possible chronic urinary retention but, in questioning the patient and her family, it sounds as if she is more troubled by urinary frequency urgency and urge incontinence. She has previously been seen in our practice and, to my knowledge, has not sought urological evaluation or care in the past. She denies a history of recurrent urinary tract infection or hematuria. Patient is a poor historian but her family denies having a chronic catheter in the past. Review of Systems Cardiovascular: Cardiovascular: Denies chest pain, Denies lightheadedness, Denies palpitations and Denies dyspnea Respiratory: Respiratory: Denies dyspnea Gastrointestinal: Gastrointestinal: Denies diarrhea, Denies nausea and Denies vomiting Genitourinary: Genitourinary: Denies hematuria and Denies dysuria Endocrine: Endocrine: Denies palpitations PMF Past Medical History Medical History (Updated 02/13/23 @ 13:24 by Mahin Marcano MD) CVA (cerebral vascular accident) Hyperlipidemia Hypertension Hypothyroidism Peripheral neuropathy Type 2 diabetes mellitus Vitamin D deficiency Surgical History Surgical History (Updated 02/13/23 @ 07:33 by Silvia Jamil DO) History of bilateral tubal ligation Status post cataract extraction of both eyes with insertion of intraocular lens Social History Social History (Updated 02/13/23 @ 07:38 by Silvia Jamil DO) Social History: Patient lives at home with her of over 60 years. She stated that she briefly smoked for a couple of years when she was young. She denies any significant alcohol use. She ambulates with a Rollator. Code status: DNR/DNI (per patient request) Surrogate decision maker: Smoking status: Former smoker Alcohol intake: never Substance use: never Do You Feel Safe in your Home?: Yes Lack of Transportation: No Lack of Food: Never True Current Housing: I Have Housing Concerned About Future Housing: No Difficulty Paying Gas/Electric Bills: No Difficulty Paying for Meds: No Currently Unemployed: No Education: High School Diploma/GED Difficulty w/ Childcare or Family Care: No Spiritual care concerns: No Meds Home Medications and Allergies Home Medications Medication Instructions Recorded Confirmed Type gabapentin 100 mg capsule 100 mg PO HS 09/18/21 02/12/23 History insulin glargine 100 unit/mL 18 unit subcut QAM 09/18/21 02/12/23 History subcutaneous solution (Lantus U-100 Insulin) levothyroxine 75 mcg tablet 75 mcg PO DAILY 09/18/21 02/12/23 History montelukast 10 mg tablet 10 mg PO DAILY 09/18/21 02/12/23 History venlafaxine 75 mg capsule,extended 75 mg PO DAILY 09/18/21 02/12/23 History release 24 hr atorvastatin 80 mg tablet 80 mg PO DAILY 01/19/23 02/12/23 History empagliflozin 10 mg tablet 10 mg PO DAILY 01/19/23 02/12/23 History (Jardiance) levetiracetam 500 mg tablet 500 mg PO BID 01/19/23 02/12/23 History metoprolol succinate 25 mg 25 mg PO DAILY 01/19/23 02/12/23 History tablet,extended release 24 hr sacubitril 24 mg-valsartan 26 mg 1 tablet PO BID 01/19/23 02/12/23 History tablet (Entresto) spironolactone 25 mg tablet 25 mg PO DAILY 01/19/23 02/12/23 History cholecalciferol (vitamin D3) 25 25 mc
[2023-02-13] MEDS: ACETAMINOPHEN 325 MG TABLET 650 MG PO ×2 (14:14→22:25)
[2023-02-13] MEDS: MIRABEGRON 50 MG ER TABLET PO (14:15)
[2023-02-13] MEDS: INSULIN ASPART (*BKC) 100 UNITS/ML SUB-Q (14:15)
--- NOTE | 2023-02-13 15:44 | PM.IMPN ---
Progress Note: A&P Assessment and Plan (1) Head injury: Qualifiers: Encounter type: initial encounter Qualified Code(s): S09.90XA - Unspecified injury of head, initial encounter Code(s): S09.90XA - Unspecified injury of head, initial encounter Status: Acute Assessment and Plan: CT spine showed questionable acute compression/impaction fracture deformity at the anterior inferior aspect of the C6 vertebral body, versus possibly chronic loss of height and chronic irregularity. Consider MR to assess for acute marrow edema. Reversal of the normal cervical lordosis, with minimal grade 1 anterolisthesis of C4 over C5, and of C5 over C6. Degenerative spondylosis, as above. Will order MRI and consult neurosurgery pending results. (2) Laceration of scalp: Qualifiers: Encounter type: initial encounter Qualified Code(s): S01.01XA - Laceration without foreign body of scalp, initial encounter Code(s): S01.01XA - Laceration without foreign body of scalp, initial encounter Status: Acute Assessment and Plan: [address] and has adequate hemostasis (3) Syncope: Qualifiers: Syncope type: unspecified Qualified Code(s): R55 - Syncope and collapse Code(s): R55 - Syncope and collapse Status: Acute Assessment and Plan: check orthostatic vital signs tele monitoring fall precautions PT/OT evaluation for likely placement due to recurrent falls (4) Abnormal urinalysis: Code(s): R82.90 - Unspecified abnormal findings in urine Status: Acute Assessment and Plan: chronic urinary retention UA showed bacteria, Urine culture pending will continue Rocephin bladder scan showed >700 ml urinary catheter placed, will plan for void trial tomorrow urology consulted and recommended Myrbetriq (beta-3 agonist med. for overactive bladder without potential for cognitive issues).? (5) Humerus fracture: Qualifiers: Encounter type: subsequent encounter Fracture type: closed Laterality: right Code(s): S42.309A - Unspecified fracture of shaft of humerus, unspecified arm, initial encounter for closed fracture Status: Acute Assessment and Plan: pain is controlled as long as her arm is in the sling. (6) Type 2 diabetes mellitus: Qualifiers: Diabetes mellitus buttermaker insulin use: with senior living use Diabetes mellitus complication status: with kidney complications Diabetes mellitus complication detail: with chronic kidney disease Chronic kidney disease stage: stage 3 (moderate) Chronic kidney disease stage 3 subtype: unspecified whether 3a or 3b Qualified Code(s): E11.22 - Type 2 diabetes mellitus with diabetic chronic kidney disease; N18.30 - Chronic kidney disease, stage 3 unspecified; Z79.4 - halfway (current) use of insulin Code(s): E11.9 - Type 2 diabetes mellitus without complications Status: Chronic Assessment and Plan: home long-acting insulin and Jardiance. Accu-Cheks a.c. HS and hypoglycemia protocol Subjective Date/time seen: 02/13/23 15:44 Interval history: Patient is an 83 YO female with PMH of CVA, Hyperlipidemia, HTN, Hypothyroidism, and Peripheral neuropathy secondary to DM2 admitted for possible syncopal episode. Patient reports that she started feeling dizzy which she described as a strain sensation in her head the patient states she then fell to the ground and struck her head. Suture now in place, clean dry and intact. She previously had a fall 2 weeks ago secondary to tripping and had a fracture in her right humerus. Patient very dizzy when attempted to get up this morning. Orthostatics to be completed when able. Patient neurovascularly intact, reporting headache after her fall but no other complaints. Family at bedside.PT/OT ordered as patient will likely need placement as it would not be safe for her to return home given her history of falls. Treating
[2023-02-13 16:31] LABS: Glucose Point of Care 160 mg/dl (65-105)
[2023-02-13] MEDS: GABAPENTIN 100 MG CAPSULE PO (20:56)
[2023-02-13 21:50] LABS: Glucose Point of Care 285 mg/dl (65-105)
[2023-02-14] VITALS (10 sets, daily range): BP systolic 114–137; BP diastolic 45–49; PULSE 59–76; RESP 16–18; TEMP 36.2–36.4; O2SAT 91–94
[2023-02-14] MEDS: traMADol HCL (*CRX) 50 MG TABLET PO ×2 (03:14→15:45)
[2023-02-14] MEDS: LEVOTHYROXINE SODIUM 75 MCG TABLET PO (06:06)
[2023-02-14] MEDS: SODIUM CHLORIDE 0.9% IV 1,000 ML 75 ML IV CONT ×2 (06:06→20:00)
[2023-02-14 07:01] LABS: Hematocrit 35.3 % (37.0-47.0); Hemoglobin 10.3 g/dL (12.0-15.0); Mean Corpuscular HGB Conc 29.2 g/dl (32-36); Mean Corpuscular Hemoglobin 29.5 pg (26-34); Mean Corpuscular Volume 101.1 fl (80-100); Mean Platelet Volume 9.2 fl (7.4-10.4); Platelet Count Result 110 k/mm3 (150-375); Red Blood Count 3.49 M/mm3 (4.2-5.4); Red Cell Distribution Width 14.3 % (11.5-14.5); White Blood Count 6.9 K/mm3 (4.5-10.0)
[2023-02-14 07:15] LABS: Albumin Level 2.9 g/dL (3.5-5.1); Anion Gap 9 mmol/L (8-16); Blood Urea Nitrogen 31 mg/dL (7-17); Calcium 8.3 mg/dL (8.4-10.2); Carbon Dioxide 14 mmol/L (22-30); Chloride 112 mmol/L (98-107); Estimated CRCL calculation 26 ml/min; Estimated Glomerular Filt Rate 31; Glucose 107 mg/dL (65-110); Phosphorus 3.3 mg/dL (2.5-4.5); Potassium 4.9 mmol/L (3.4-5.0); Sodium 135 mmol/L (137-145)
[2023-02-14 08:10] LABS: Glucose Point of Care 105 mg/dl (65-105)
[2023-02-14] MEDS: INSULIN GLARGINE (*BKC) 100 UNITS/ML 18 UNITS SUB-Q (09:22)
[2023-02-14] MEDS: levETIRAcetam 500 MG TABLET PO ×2 (09:29→20:50)
[2023-02-14] MEDS: VENLAFAXINE HCL XR 75 MG CAP.ER.24H PO (09:29)
[2023-02-14] MEDS: SACUBITRIL/VALSARTAN 24-26 MG TABLET 1 TAB PO ×2 (09:29→20:50)
[2023-02-14] MEDS: CHOLECALCIFEROL 1,000 UNITS TABLET 1000 UNITS PO (09:30)
[2023-02-14] MEDS: MIRABEGRON 50 MG ER TABLET PO (09:30)
[2023-02-14] MEDS: EMPAGLIFLOZIN 10 MG TABLET PO (09:30)
[2023-02-14] MEDS: MONTELUKAST SODIUM 10 MG TABLET PO (09:30)
[2023-02-14] MEDS: METOPROLOL SUCCINATE EXT REL 25 MG TABCR PO (09:30)
[2023-02-14] MEDS: ATORVASTATIN 40 MG TABLET 80 MG PO (09:30)
[2023-02-14 12:08] LABS: Glucose Point of Care 177 mg/dl (65-105)
--- NOTE | 2023-02-14 12:21 | PCOTNOTE ---
Per RN, Patient is to have a MRI done. RN requested therapy wait until finished with the MRI.
--- NOTE | 2023-02-14 13:17 | PCPTNOTE ---
Attempted to see patient this A.M., however patient out of room for MRI and unable to be seen. Patient awaiting neurosurgery consult following MRI results. PT will continue to follow per plan of care.
--- NOTE | 2023-02-14 14:30 | PM.IMPN ---
Progress Note: A&P Assessment and Plan (1) Head injury: Qualifiers: Encounter type: initial encounter Qualified Code(s): S09.90XA - Unspecified injury of head, initial encounter Code(s): S09.90XA - Unspecified injury of head, initial encounter Status: Acute Assessment and Plan: CT spine showed questionable acute compression/impaction fracture deformity at the anterior inferior aspect of the C6 vertebral body, versus possibly chronic loss of height and chronic irregularity. Consider MR to assess for acute marrow edema. Reversal of the normal cervical lordosis, with minimal grade 1 anterolisthesis of C4 over C5, and of C5 over C6. Degenerative spondylosis,as above. MRI showed acute/subacute compression fractures of C6, C7, and T1 with less than 1/5 loss of height. consult to neurosurgery placed (2) Laceration of scalp: Qualifiers: Encounter type: initial encounter Qualified Code(s): S01.01XA - Laceration without foreign body of scalp, initial encounter Code(s): S01.01XA - Laceration without foreign body of scalp, initial encounter Status: Acute Assessment and Plan: [address] and has adequate hemostasis staple removed for MRI (3) Syncope: Qualifiers: Syncope type: unspecified Qualified Code(s): R55 - Syncope and collapse Code(s): R55 - Syncope and collapse Status: Acute Assessment and Plan: check orthostatic vital signs when able tele monitoring fall precautions PT/OT evaluation for likely placement due to recurrent falls (4) Abnormal urinalysis: Code(s): R82.90 - Unspecified abnormal findings in urine Status: Acute Assessment and Plan: chronic urinary retention Urine culture E.coli, sensitivity pending continue Rocephin bladder scan showed >700 ml urinary catheter placed, will plan for void trial today urology consulted and recommended Myrbetriq (beta-3 agonist med. for overactive bladder without potential for cognitive issues).? (5) Humerus fracture: Qualifiers: Encounter type: subsequent encounter Fracture type: closed Laterality: right Code(s): S42.309A - Unspecified fracture of shaft of humerus, unspecified arm, initial encounter for closed fracture Status: Acute Assessment and Plan: pain is controlled as long as her arm is in the sling. (6) Type 2 diabetes mellitus: Qualifiers: Diabetes mellitus predatory animal exterminator insulin use: with predatory animal exterminator use Diabetes mellitus complication status: with kidney complications Diabetes mellitus complication detail: with chronic kidney disease Chronic kidney disease stage: stage 3 (moderate) Chronic kidney disease stage 3 subtype: unspecified whether 3a or 3b Qualified Code(s): E11.22 - Type 2 diabetes mellitus with diabetic chronic kidney disease; N18.30 - Chronic kidney disease, stage 3 unspecified; Z79.4 - longterm (current) use of insulin Code(s): E11.9 - Type 2 diabetes mellitus without complications Status: Chronic Assessment and Plan: home long-acting insulin and Jardiance. Accu-Cheks a.c. HS and hypoglycemia protocol Subjective Date/time seen: 02/14/23 14:30 Interval history: Patient is lethargic this morning. Still A&O x3. Orthostatics to be completed when able. Patient neurovascularly intact, denies pain this morning. Family at bedside.PT/OT ordered as patient will likely need placement as it would not be safe for her to return home given her history of falls. UA culture showing E.Coli, sensitivity pending. Hahn voiding trial planned for later today. MRI showed acute/subacute compression fractures of C6, C7, and T1 with less than 1/5 loss of height. Consulted neurosurgery and would appreciate input. Review of Systems Review of Systems: All systems reviewed & are unremarkable except as noted in HPI and below Exam Narrative: GENERAL: Well-appearing, lethargic,
--- NOTE | 2023-02-14 15:03 | PCOTNOTE ---
Per RN, Patient to see Neuro for a consult following the MRI this date. Therapy will wait for updated information.
[2023-02-14 16:58] LABS: Glucose Point of Care 237 mg/dl (65-105)
[2023-02-14] MEDS: INSULIN ASPART (*BKC) 100 UNITS/ML SUB-Q (17:20)
[2023-02-14] MEDS: ACETAMINOPHEN 325 MG TABLET 650 MG PO (20:50)
[2023-02-14] MEDS: GABAPENTIN 100 MG CAPSULE PO (20:52)
[2023-02-14 21:53] LABS: Glucose Point of Care 148 mg/dl (65-105)
[2023-02-15] VITALS (12 sets, daily range): BP systolic 116–132; BP diastolic 45–51; PULSE 59–81; RESP 16–18; TEMP 35.9–36.6; O2SAT 93–97
[2023-02-15] MEDS: traMADol HCL (*CRX) 50 MG TABLET PO ×2 (05:05→23:10)
[2023-02-15] MEDS: LEVOTHYROXINE SODIUM 75 MCG TABLET PO (05:27)
[2023-02-15 07:05] LABS: Hematocrit 31.8 % (37.0-47.0); Hemoglobin 10.1 g/dL (12.0-15.0); Mean Corpuscular HGB Conc 31.8 g/dl (32-36); Mean Corpuscular Hemoglobin 29.6 pg (26-34); Mean Corpuscular Volume 93.3 fl (80-100); Mean Platelet Volume 9.6 fl (7.4-10.4); Platelet Count Result 193 k/mm3 (150-375); Red Blood Count 3.41 M/mm3 (4.2-5.4); Red Cell Distribution Width 14.3 % (11.5-14.5)
[2023-02-15 07:16] LABS: Anion Gap 6 mmol/L (8-16); Blood Urea Nitrogen 24 mg/dL (7-17); Calcium 8.4 mg/dL (8.4-10.2); Carbon Dioxide 18 mmol/L (22-30); Chloride 112 mmol/L (98-107); Estimated CRCL calculation 31 ml/min; Estimated Glomerular Filt Rate 39; Glucose 104 mg/dL (65-110); Potassium 4.5 mmol/L (3.4-5.0); Sodium 136 mmol/L (137-145)
[2023-02-15 07:43] LABS: Glucose Point of Care 112 mg/dl (65-105)
[2023-02-15] MEDS: METOPROLOL SUCCINATE EXT REL 25 MG TABCR PO (10:08)
[2023-02-15] MEDS: VENLAFAXINE HCL XR 75 MG CAP.ER.24H PO (10:09)
[2023-02-15] MEDS: SACUBITRIL/VALSARTAN 24-26 MG TABLET 1 TAB PO ×2 (10:09→20:28)
[2023-02-15] MEDS: levETIRAcetam 500 MG TABLET PO ×2 (10:09→20:27)
[2023-02-15] MEDS: CHOLECALCIFEROL 1,000 UNITS TABLET 1000 UNITS PO (10:09)
[2023-02-15] MEDS: ATORVASTATIN 40 MG TABLET 80 MG PO (10:09)
[2023-02-15] MEDS: MONTELUKAST SODIUM 10 MG TABLET PO (10:10)
[2023-02-15] MEDS: EMPAGLIFLOZIN 10 MG TABLET PO (10:10)
[2023-02-15] MEDS: MIRABEGRON 50 MG ER TABLET PO (10:10)
[2023-02-15] MEDS: INSULIN GLARGINE (*BKC) 100 UNITS/ML 18 UNITS SUB-Q (10:10)
[2023-02-15] MEDS: ONDANSETRON INJ 4 MG/2 ML VIAL IV PUSH (10:16)
[2023-02-15] MEDS: SODIUM CHLORIDE 0.9% IV 1,000 ML 75 ML IV CONT ×2 (10:16→23:13)
--- NOTE | 2023-02-15 10:35 | PCOTNOTE ---
Per RN, Patient is supposed to see Neuro first, wait until seen for therapy. Will check back.
[2023-02-15 11:39] LABS: Glucose Point of Care 224 mg/dl (65-105)
[2023-02-15] MEDS: INSULIN ASPART (*BKC) 100 UNITS/ML SUB-Q ×2 (12:44→17:58)
--- NOTE | 2023-02-15 12:58 | WPDNEUROSGPN ---
Progress Note: A&P Assessment and Plan (1) Cervical compression fracture: Code(s): S12.9XXA - Fracture of neck, unspecified, initial encounter Status: Acute Plan I was contacted yesterday afternoon about cervical compression fractures detected on MRI cervical spine which was obtained for better evaluation of possible fractures seen on CT cervical spine. She presented to the hospital on February 12 after a syncopal episode in which she hit her head. Per the notes from the last few days, she remains neurologically intact but will require placement due to multiple recent falls. I reviewed her MRI cervical spine which shows compression fractures at C6, C7, and T1 with minimal loss of height and no kyphosis. There is no spinal cord compression. I recommend treating her with a cervical collar/[place] J which she should wear at all times except when eating if this makes it difficult for her to swallow. I contacted [employer] who will fit her for a collar today. She may work with physical therapy but should not lift more than 10 lbs. I will arrange for follow up with us in clinic in about a month with xrays immediately prior. Subjective Date/time seen: 02/15/23 12:58 Objective Data Vital Signs Vital Signs: Vital Signs - 24 hr 02/14/23 15:55 02/14/23 16:00 02/14/23 22:00 Temperature 97.2 F L 97.6 F Pulse Rate 66 60 68 Respiratory Rate 18 18 Blood Pressure 137/45 L 135/46 L Pulse Oximetry 92 94 Oxygen Delivery 02/14/23 20:00 02/14/23 20:00 02/15/23 00:00 Temperature Pulse Rate 69 69 Respiratory Rate Blood Pressure Pulse Oximetry 94 Oxygen Delivery Room Air 02/15/23 04:00 02/15/23 06:00 02/15/23 10:08 Temperature 97.1 F L Pulse Rate 67 70 67 Respiratory Rate 16 Blood Pressure 132/48 L Pulse Oximetry 96 Oxygen Delivery Intake/Output Intake/Output: Intake & Output 02/12/23 02/13/23 02/14/23 02/15/23 23:59 23:59 23:59 23:59 Intake Total 0180 687 7201 1960 Output Total 1425 1375 1450 Balance 1000 -896 6795 510 Meds/Results Medications: Active Medications Generic Name Dose Route Start Last Admin Trade Name Freq PRN Reason Stop Dose Admin Acetaminophen 650 mg 02/12/23 21:24 02/14/23 20:50 Acetaminophen 325 Mg Tablet PO 650 mg Q4H PRN Administration Mild Pain (1-3) or Fever Atorvastatin Calcium 80 mg 02/13/23 09:00 02/15/23 10:09 Atorvastatin 40 Mg Tablet PO 80 mg DAILY CATALINO Administration Dextrose 12.5 gm 02/13/23 07:18 Dextrose 50% 25 Gm/50 Ml Syringe IV PUSH PRN PRN Hypoglycemia Protocol Empagliflozin 10 mg 02/13/23 09:00 02/15/23 10:10 Empagliflozin 10 Mg Tablet PO 10 mg DAILY CATALINO Administration Gabapentin 100 mg 02/13/23 21:00 02/14/23 20:52 Gabapentin 100 Mg Capsule PO 100 mg HS CATALINO Administration Glucagon 1 mg 02/13/23 07:18 Glucagon For Inj 1 Mg Vial IM PRN PRN Hypoglycemia Protocol Glucose 15 gm 02/13/23 07:18 Glucose Oral Gel 15 Gm Of Glucse In 37.5 Gm Tube PO PRN PRN Hypoglycemia Protocol Sodium Chloride 1,000 mls @ 75 mls/hr 02/12/23 21:25 02/15/23 10:16 Normal Saline Iv IV CONT 75 mls/hr .[id number] CATALINO Administration Dextrose 1,000 mls @ 100 mls/hr 02/13/23 07:18 Dextrose 5% 1,000 Ml IVPB PRN PRN Hypoglycemia Protocol Ceftriaxone Sodium 1 gm in 50 mls @ 100 mls/hr 02/13/23 21:00 02/14/23 21:18 Rocephin 1 Gm/Ns 50 Ml IVPB Infused Q24H CATALINO Infusion Insulin Aspart 2 - 5 units 02/13/23 08:00 02/15/23 12:44 Insulin Aspart (*Bkc) 100 Units/Ml SUB-Q 2 units TIDWM CATALINO Administration Protocol Insulin Glargine 18 units 02/13/23 09:00 02/15/23 10:10 Insulin Glargine (*Bkc) 100 Units/Ml SUB-Q 18 units QAM CATALINO Administration Levetiracetam 500 mg 02/13/23 09:00 02/15/23 10:09 Levetiracetam 500 Mg Tablet PO 500 mg Q12HR CATALINO Administration Levothyrox
--- NOTE | 2023-02-15 13:02 | PCOTNOTE ---
Per RN, Neuro saw Patient and is ordering a cervical collar to be worn at all times. Therapy to wait until brace is delivered to see for treatment session.
--- NOTE | 2023-02-15 14:23 | PM.IMPN ---
Progress Note: A&P Assessment and Plan (1) Head injury: Qualifiers: Encounter type: initial encounter Qualified Code(s): S09.90XA - Unspecified injury of head, initial encounter Code(s): S09.90XA - Unspecified injury of head, initial encounter Status: Acute Assessment and Plan: CT spine showed questionable acute compression/impaction fracture deformity at the anterior inferior aspect of the C6 vertebral body, versus possibly chronic loss of height and chronic irregularity. Consider MR to assess for acute marrow edema. Reversal of the normal cervical lordosis, with minimal grade 1 anterolisthesis of C4 over C5, and of C5 over C6. Degenerative spondylosis,as above. MRI showed acute/subacute compression fractures of C6, C7, and T1 with less than 1/5 loss of height. neurosurgery ordered cervical collar/[place] J which she should wear at all times except when eating if this makes it difficult for her to swallow. Will f/u outpatient. (2) Laceration of scalp: Qualifiers: Encounter type: initial encounter Qualified Code(s): S01.01XA - Laceration without foreign body of scalp, initial encounter Code(s): S01.01XA - Laceration without foreign body of scalp, initial encounter Status: Acute Assessment and Plan: [address] and has adequate hemostasis staple removed for MRI (3) Syncope: Qualifiers: Syncope type: unspecified Qualified Code(s): R55 - Syncope and collapse Code(s): R55 - Syncope and collapse Status: Acute Assessment and Plan: check orthostatic vital signs when able tele monitoring fall precautions PT/OT evaluation for likely placement due to recurrent falls (4) Abnormal urinalysis: Code(s): R82.90 - Unspecified abnormal findings in urine Status: Acute Assessment and Plan: chronic urinary retention Urine culture E.coli, sensitivity resulted continue Rocephin, will transition to PO Augmentin when tolerating PO better bladder scan showed >700 ml urinary catheter placed, will plan for void trial today urology consulted and recommended Myrbetriq (beta-3 agonist med. for overactive bladder without potential for cognitive issues).? (5) Humerus fracture: Qualifiers: Encounter type: subsequent encounter Fracture type: closed Laterality: right Code(s): S42.309A - Unspecified fracture of shaft of humerus, unspecified arm, initial encounter for closed fracture Status: Acute Assessment and Plan: pain is controlled as long as her arm is in the sling. 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 Accu-Cheks a.c. HS and hypoglycemia protocol Subjective Date/time seen: 02/15/23 14:23 Interval history: Patient is feeling nauseous this morning. Still A&O x3. Orthostatics to be completed when able. Patient neurovascularly intact, denies pain this morning. Family at bedside. UA culture showing E.Coli, will transition to PO Augmentin when patient tolerating PO better. Hahn voiding trial planned for later today. MRI showed acute/subacute compression fractures of C6, C7, and T1 with less than 1/5 loss of height. Neurosurgery ordered collar and will f/u outpatient in 1 month. PT/OT ordered as patient will likely need pl
--- NOTE | 2023-02-15 15:42 | WPDUROPN2 ---
Progress Note: A&P Assessment and Plan (1) Overactive bladder: Code(s): N32.81 - Overactive bladder Status: Acute Assessment and Plan: Tolerating Mirabegron for OAB well (no HTN or other apparent SA) Voiding trial when more ambulatory. Discussed with her daughter. Subjective Subjective Date/Time Seen: 02/15/23 15:42 Interval history: Sleeping Review of Systems Review of Systems: ROS unobtainable: Yes unobtainable due to mental status Exam Const: General: no acute distress Resp: Effort & Inspection: normal respiratory effort GI: Inspection: non-distended GI Palp: No abdominal tenderness and No Guarding due to palpation present (GI) Auscultation: normal bowel sounds Urinary Catheter: Urinary Catheter: patent and draining Objective Data Vital Signs Vital Signs: Vital Signs - 24 hr 02/14/23 15:55 02/14/23 16:00 02/14/23 22:00 Temperature 97.2 F L 97.6 F Pulse Rate 66 60 68 Respiratory Rate 18 18 Blood Pressure 137/45 L 135/46 L Pulse Oximetry 92 94 Oxygen Delivery 02/14/23 20:00 02/14/23 20:00 02/15/23 00:00 Temperature Pulse Rate 69 69 Respiratory Rate Blood Pressure Pulse Oximetry 94 Oxygen Delivery Room Air 02/15/23 04:00 02/15/23 06:00 02/15/23 10:08 Temperature 97.1 F L Pulse Rate 67 70 67 Respiratory Rate 16 Blood Pressure 132/48 L Pulse Oximetry 96 Oxygen Delivery 02/15/23 14:00 Temperature 97.9 F Pulse Rate 66 Respiratory Rate 18 Blood Pressure 116/49 L Pulse Oximetry 93 Oxygen Delivery Intake/Output Intake/Output: Intake & Output 02/12/23 02/13/23 02/14/23 02/15/23 23:59 23:59 23:59 23:59 Intake Total 9295 489 0520 1960 Output Total 1425 1375 1450 Balance 1000 -747 5575 510 Meds/Results Medications: Active Medications Generic Name Dose Route Start Last Admin Trade Name Freq PRN Reason Stop Dose Admin Acetaminophen 650 mg 02/12/23 21:24 02/14/23 20:50 Acetaminophen 325 Mg Tablet PO 650 mg Q4H PRN Administration Mild Pain (1-3) or Fever Atorvastatin Calcium 80 mg 02/13/23 09:00 02/15/23 10:09 Atorvastatin 40 Mg Tablet PO 80 mg DAILY CATALINO Administration Dextrose 12.5 gm 02/13/23 07:18 Dextrose 50% 25 Gm/50 Ml Syringe IV PUSH PRN PRN Hypoglycemia Protocol Empagliflozin 10 mg 02/13/23 09:00 02/15/23 10:10 Empagliflozin 10 Mg Tablet PO 10 mg DAILY CATALINO Administration Gabapentin 100 mg 02/13/23 21:00 02/14/23 20:52 Gabapentin 100 Mg Capsule PO 100 mg HS CATALINO Administration Glucagon 1 mg 02/13/23 07:18 Glucagon For Inj 1 Mg Vial IM PRN PRN Hypoglycemia Protocol Glucose 15 gm 02/13/23 07:18 Glucose Oral Gel 15 Gm Of Glucse In 37.5 Gm Tube PO PRN PRN Hypoglycemia Protocol Sodium Chloride 1,000 mls @ 75 mls/hr 02/12/23 21:25 02/15/23 10:16 Normal Saline Iv IV CONT 75 mls/hr .[id number] CATALINO Administration Dextrose 1,000 mls @ 100 mls/hr 02/13/23 07:18 Dextrose 5% 1,000 Ml IVPB PRN PRN Hypoglycemia Protocol Ceftriaxone Sodium 1 gm in 50 mls @ 100 mls/hr 02/13/23 21:00 02/14/23 21:18 Rocephin 1 Gm/Ns 50 Ml IVPB Infused Q24H CATALINO Infusion Insulin Aspart 2 - 5 units 02/13/23 08:00 02/15/23 12:44 Insulin Aspart (*Bkc) 100 Units/Ml SUB-Q 2 units TIDWM CATALINO Administration Protocol Insulin Glargine 18 units 02/13/23 09:00 02/15/23 10:10 Insulin Glargine (*Bkc) 100 Units/Ml SUB-Q 18 units QAM CATALINO Administration Levetiracetam 500 mg 02/13/23 09:00 02/15/23 10:09 Levetiracetam 500 Mg Tablet PO 500 mg Q12HR CATALINO Administration Levothyroxine Sodium 75 mcg 02/13/23 07:20 02/15/23 05:27 Levothyroxine Sodium 75 Mcg Tablet PO 75 mcg DAILY@0630 CATALINO Administration Metoprolol Succinate 25 mg 02/13/23 09:00 02/15/23 10:08 Metoprolol Succinate Ext Rel 25 Mg Tabcr PO 25 mg DAILY CATALINO Administration Mirabegr
[2023-02-15 16:46] LABS: Glucose Point of Care 266 mg/dl (65-105)
--- NOTE | 2023-02-15 20:04 | PC.NURSE ---
Pt got C-collar today. Pt tolerating well. Pt was monitored for any changes in status.
[2023-02-15] MEDS: GABAPENTIN 100 MG CAPSULE PO (20:28)
[2023-02-15 22:33] LABS: Glucose Point of Care 236 mg/dl (65-105)
[2023-02-16] VITALS (10 sets, daily range): BP systolic 118–134; BP diastolic 48–54; PULSE 63–92; RESP 16–18; TEMP 36.1–37; O2SAT 93–96
[2023-02-16] MEDS: LEVOTHYROXINE SODIUM 75 MCG TABLET PO (06:31)
[2023-02-16 06:53] LABS: Hematocrit 31.2 % (37.0-47.0); Hemoglobin 9.7 g/dL (12.0-15.0); Mean Corpuscular HGB Conc 31.1 g/dl (32-36); Mean Corpuscular Hemoglobin 29.8 pg (26-34); Mean Corpuscular Volume 95.7 fl (80-100); Mean Platelet Volume 9.8 fl (7.4-10.4); Platelet Count Result 168 k/mm3 (150-375); Red Blood Count 3.26 M/mm3 (4.2-5.4); Red Cell Distribution Width 14.3 % (11.5-14.5); White Blood Count 6.8 K/mm3 (4.5-10.0)
[2023-02-16 06:55] LABS: Anion Gap 8 mmol/L (8-16); Blood Urea Nitrogen 22 mg/dL (7-17); Calcium 8.2 mg/dL (8.4-10.2); Carbon Dioxide 19 mmol/L (22-30); Chloride 110 mmol/L (98-107); Estimated CRCL calculation 29 ml/min; Estimated Glomerular Filt Rate 36; Glucose 167 mg/dL (65-110); Potassium 4.7 mmol/L (3.4-5.0); Sodium 137 mmol/L (137-145)
[2023-02-16 07:59] LABS: Glucose Point of Care 156 mg/dl (65-105)
[2023-02-16] MEDS: EMPAGLIFLOZIN 10 MG TABLET PO (08:28)
[2023-02-16] MEDS: VENLAFAXINE HCL XR 75 MG CAP.ER.24H PO (08:28)
[2023-02-16] MEDS: levETIRAcetam 500 MG TABLET PO ×2 (08:28→21:19)
[2023-02-16] MEDS: MIRABEGRON 50 MG ER TABLET PO (08:28)
[2023-02-16] MEDS: ATORVASTATIN 40 MG TABLET 80 MG PO (08:28)
[2023-02-16] MEDS: METOPROLOL SUCCINATE EXT REL 25 MG TABCR PO (08:28)
[2023-02-16] MEDS: CHOLECALCIFEROL 1,000 UNITS TABLET 1000 UNITS PO (08:28)
[2023-02-16] MEDS: SACUBITRIL/VALSARTAN 24-26 MG TABLET 1 TAB PO ×2 (08:29→21:19)
[2023-02-16] MEDS: MONTELUKAST SODIUM 10 MG TABLET PO (08:29)
[2023-02-16] MEDS: ONDANSETRON INJ 4 MG/2 ML VIAL IV PUSH (08:32)
[2023-02-16] MEDS: INSULIN GLARGINE (*BKC) 100 UNITS/ML 18 UNITS SUB-Q (09:38)
--- NOTE | 2023-02-16 11:08 | PCOTNOTE ---
Patient declined at this time. Patient stated she is having increased pain.
[2023-02-16 11:31] LABS: Glucose Point of Care 238 mg/dl (65-105)
--- NOTE | 2023-02-16 11:50 | PCPTNOTE ---
Patient declined PT stating she does not feel well and is having pain. PT will continue to follow per plan of care.
[2023-02-16] MEDS: traMADol HCL (*CRX) 50 MG TABLET PO (12:10)
[2023-02-16] MEDS: INSULIN ASPART (*BKC) 100 UNITS/ML SUB-Q ×2 (12:10→18:19)
--- NOTE | 2023-02-16 14:30 | WPDNEUROSGCN ---
Assessment and Plan Assessment and plan (1) Cervical compression fracture: Code(s): S12.9XXA - Fracture of neck, unspecified, initial encounter Status: Acute Plan Ms. Post is an 83-year-old female who was found to have multiple cervical compression fractures on imaging performed after a syncopal episode. She has limited mobility and pain of the right arm due to a proximal humerus fracture sustained last month after a fall but otherwise does not have focal deficit. MRI shows compression fractures of C6, C7, and T1. She has been fitted for a cervical collar. While this does not provide great support for the T1 fracture, that is very difficult to brace without placing her in a much more restrictive brace that I think would cause more problems than benefits. I recommend wearing the cervical collar at all times except while eating if it is causing swallowing difficulty for her. I will arrange for outpatient Neurosurgery follow up in the next 4 weeks or so with cervical xrays prior to that appointment. Consult date: 02/16/23 HPI: Nara Post is a 83 year old female with history of HTN, CVA, DM, HLD who presented to the ER on February after a syncopal episode. She notably had a fall on January 19 at which time she was found to have a right humerus fracture. She continues to have pain in the right arm and has limited mobility. She states she has neck pain without radiation into the arms or legs. She denies paresthesias in the limbs or focal weakness. She is currently wearing a cervical collar. Review of Systems Review of Systems: All systems reviewed & are unremarkable except as noted in HPI and below PMFSH Past Medical History Medical History (Updated 02/15/23 @ 13:03 by Sera Simmons MD) CVA (cerebral vascular accident) Hyperlipidemia Hypertension Hypothyroidism Peripheral neuropathy Type 2 diabetes mellitus Vitamin D deficiency Surgical History Surgical History (Updated 02/13/23 @ 07:33 by Silvia Jamil DO) History of bilateral tubal ligation Status post cataract extraction of both eyes with insertion of intraocular lens Social History Social History (Updated 02/13/23 @ 07:38 by Silvia Jamil DO) Social History: Patient lives at home with her of over 60 years. She stated that she briefly smoked for a couple of years when she was young. She denies any significant alcohol use. She ambulates with a Rollator. Code status: DNR/DNI (per patient request) Surrogate decision maker: Smoking status: Former smoker Alcohol intake: never Substance use: never Do You Feel Safe in your Home?: Yes Lack of Transportation: No Lack of Food: Never True Current Housing: I Have Housing Concerned About Future Housing: No Difficulty Paying Gas/Electric Bills: No Difficulty Paying for Meds: No Currently Unemployed: No Education: High School Diploma/GED Difficulty w/ Childcare or Family Care: No Spiritual care concerns: No Meds Home Medications and Allergies Home Medications Medication Instructions Recorded Confirmed Type gabapentin 100 mg capsule 100 mg PO HS 09/18/21 02/12/23 History insulin glargine 100 unit/mL 18 unit subcut QAM 09/18/21 02/12/23 History subcutaneous solution (Lantus U-100 Insulin) levothyroxine 75 mcg tablet 75 mcg PO DAILY 09/18/21 02/12/23 History montelukast 10 mg tablet 10 mg PO DAILY 09/18/21 02/12/23 History venlafaxine 75 mg capsule,extended 75 mg PO DAILY 09/18/21 02/12/23 History release 24 hr atorvastatin 80 mg tablet 80 mg PO DAILY 01/19/23 02/12/23 History empagliflozin 10 mg tablet 10 mg PO DAILY 01/19/23 02/12/23 History (Jardiance) levetiracetam 500 mg tablet 500 mg PO BID 01/19/23 02/12/23 History metoprolol succinate 25 mg 25 mg PO DAILY 01/19/23 02/12/23 History tablet,extended release 24 hr sacubitril 24 mg-valsartan 26 mg 1 tablet PO BID 01/19/23 02/12/23 History tablet (Entresto) spironol
--- NOTE | 2023-02-16 15:06 | P.PNIM_ITS ---
Progress Note: A&P Assessment and Plan (1) Head injury: Qualifiers: Encounter type: initial encounter Qualified Code(s): S09.90XA - Unspecified injury of head, initial encounter Code(s): S09.90XA - Unspecified injury of head, initial encounter Status: Acute Assessment and Plan: * CT spine showed questionable acute compression/impaction fracture deformity at the anterior inferior aspect of the C6 vertebral body, versus possibly chronic loss of height and chronic irregularity. Consider MR to assess for acute marrow edema. Reversal of the normal cervical lordosis, with minimal grade 1 anterolisthesis of C4 over C5, and of C5 over C6. Degenerative spondylosis,as above. * MRI showed acute/subacute compression fractures of C6, C7, and T1 with less than 1/5 loss of height. * neurosurgery ordered cervical collar/[place]erauld J which she should wear at all times except when eating if this makes it difficult for her to swallow. Will f/u outpatient in 4 weeks. * Imaging should be repeated prior to next NSY appointment. (2) Laceration of scalp: Qualifiers: Encounter type: initial encounter Qualified Code(s): S01.01XA - Laceration without foreign body of scalp, initial encounter Code(s): S01.01XA - Laceration without foreign body of scalp, initial encounter Status: Acute Assessment and Plan: * [address] and has adequate hemostasis * staple removed for MRI * Appears well approximated and scabbed over. (3) Syncope: Qualifiers: Syncope type: unspecified Qualified Code(s): R55 - Syncope and collapse Code(s): R55 - Syncope and collapse Status: Acute Assessment and Plan: * check orthostatic vital signs when able * tele monitoring * fall precautions * PT/OT evaluation for likely placement due to recurrent falls * Placement in rehab pending. (4) Abnormal urinalysis: Code(s): R82.90 - Unspecified abnormal findings in urine Status: Acute Assessment and Plan: * chronic urinary retention * Urine culture E.coli, sensitivity resulted * continue Rocephin, will transition to PO Augmentin when tolerating PO better * bladder scan showed >700 ml * urinary catheter placed, will plan for void trial today * urology consulted and recommended Myrbetriq (beta-3 agonist med. for overactive bladder without potential for cognitive issues).? * Today is day #5 of Rocephin therapy. She will not need any further abx for treatment of her E.coli. * Not meeting SIRS/Sepsis criteria. (5) Humerus fracture: Qualifiers: Encounter type: subsequent encounter Fracture type: closed Laterality: right Code(s): S42.309A - Unspecified fracture of shaft of humerus, unspecified arm, initial encounter for closed fracture Status: Acute Assessment and Plan: * pain is controlled as long as her arm is in the sling. * Healing without surgical repair, reported by the pt and family for elevated A1C. * Continue PT/OT with precautions for Broken Humerus. (6) Type 2 diabetes mellitus: Qualifiers: Diabetes mellitus alf insulin use: with alf use Diabetes mellitus complication status: with kidney complications Diabetes mellitus complication detail: with chronic kidney disease Chronic kidney disease stage: stage 3 (moderate) Chronic kidney disease stage 3 subtype: unspecified whether 3a or 3b Qualified Code(s): E11.22 - Type 2 diabetes mellitus with diabetic chronic kidney disease; N18.30 - Chronic kidney disease, stage 3 unspecified; Z79.4 - MCFP (current) use of insulin Code(s):
--- NOTE | 2023-02-16 15:06 | PM.IMPN ---
Progress Note: A&P Assessment and Plan (1) Head injury: Qualifiers: Encounter type: initial encounter Qualified Code(s): S09.90XA - Unspecified injury of head, initial encounter Code(s): S09.90XA - Unspecified injury of head, initial encounter Status: Acute Assessment and Plan: CT spine showed questionable acute compression/impaction fracture deformity at the anterior inferior aspect of the C6 vertebral body, versus possibly chronic loss of height and chronic irregularity. Consider MR to assess for acute marrow edema. Reversal of the normal cervical lordosis, with minimal grade 1 anterolisthesis of C4 over C5, and of C5 over C6. Degenerative spondylosis,as above. MRI showed acute/subacute compression fractures of C6, C7, and T1 with less than 1/5 loss of height. neurosurgery ordered cervical collar/[place] J which she should wear at all times except when eating if this makes it difficult for her to swallow. Will f/u outpatient in 4 weeks. Imaging should be repeated prior to next NSY appointment. (2) Laceration of scalp: Qualifiers: Encounter type: initial encounter Qualified Code(s): S01.01XA - Laceration without foreign body of scalp, initial encounter Code(s): S01.01XA - Laceration without foreign body of scalp, initial encounter Status: Acute Assessment and Plan: [address] and has adequate hemostasis staple removed for MRI Appears well approximated and scabbed over. (3) Syncope: Qualifiers: Syncope type: unspecified Qualified Code(s): R55 - Syncope and collapse Code(s): R55 - Syncope and collapse Status: Acute Assessment and Plan: check orthostatic vital signs when able tele monitoring fall precautions PT/OT evaluation for likely placement due to recurrent falls Placement in rehab pending. (4) Abnormal urinalysis: Code(s): R82.90 - Unspecified abnormal findings in urine Status: Acute Assessment and Plan: chronic urinary retention Urine culture E.coli, sensitivity resulted continue Rocephin, will transition to PO Augmentin when tolerating PO better bladder scan showed >700 ml urinary catheter placed, will plan for void trial today urology consulted and recommended Myrbetriq (beta-3 agonist med. for overactive bladder without potential for cognitive issues).? Today is day #5 of Rocephin therapy. She will not need any further abx for treatment of her E.coli. Not meeting SIRS/Sepsis criteria. (5) Humerus fracture: Qualifiers: Encounter type: subsequent encounter Fracture type: closed Laterality: right Code(s): S42.309A - Unspecified fracture of shaft of humerus, unspecified arm, initial encounter for closed fracture Status: Acute Assessment and Plan: pain is controlled as long as her arm is in the sling. Healing without surgical repair, reported by the pt and family for elevated A1C. Continue PT/OT with precautions for Broken Humerus. 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 Accu-Cheks a.c. HS and hypoglycemia protocol (7) Ankle pain, right: Code(s): M25.571 - Pain in right ankle and joints of right foot Status: Acute Assessment and Plan: Right ankle pain since h
[2023-02-16 16:45] LABS: Glucose Point of Care 298 mg/dl (65-105)
[2023-02-16] MEDS: SODIUM CHLORIDE 0.9% IV 1,000 ML 75 ML IV CONT (18:18)
[2023-02-16 20:25] LABS: Glucose Point of Care 302 mg/dl (65-105)
[2023-02-16] MEDS: GABAPENTIN 100 MG CAPSULE PO (21:19)
[2023-02-16] MEDS: INSULIN HUMAN REGULAR (*BKC) 100 UNITS/ML 8 UNITS SUB-Q (21:20)
[2023-02-16] MEDS: ACETAMINOPHEN 325 MG TABLET 650 MG PO (21:21)
[2023-02-16 22:33] LABS: Glucose Point of Care 245 mg/dl (65-105)
[2023-02-17] VITALS (7 sets, daily range): BP systolic 102–142; BP diastolic 45–59; PULSE 59–104; RESP 17–22; TEMP 36.1–36.6; O2SAT 90–95
[2023-02-17] MEDS: LEVOTHYROXINE SODIUM 75 MCG TABLET PO (05:14)
[2023-02-17 07:59] LABS: Glucose Point of Care 113 mg/dl (65-105)
[2023-02-17] MEDS: METOPROLOL SUCCINATE EXT REL 25 MG TABCR PO (08:10)
[2023-02-17] MEDS: EMPAGLIFLOZIN 10 MG TABLET PO (08:10)
[2023-02-17] MEDS: MONTELUKAST SODIUM 10 MG TABLET PO (08:10)
[2023-02-17] MEDS: INSULIN GLARGINE (*BKC) 100 UNITS/ML 18 UNITS SUB-Q (08:10)
[2023-02-17] MEDS: levETIRAcetam 500 MG TABLET PO ×2 (08:10→21:23)
[2023-02-17] MEDS: MIRABEGRON 50 MG ER TABLET PO (08:12)
[2023-02-17] MEDS: SACUBITRIL/VALSARTAN 24-26 MG TABLET 1 TAB PO ×2 (08:12→21:23)
[2023-02-17] MEDS: VENLAFAXINE HCL XR 75 MG CAP.ER.24H PO (08:12)
[2023-02-17] MEDS: ATORVASTATIN 40 MG TABLET 80 MG PO (08:12)
[2023-02-17] MEDS: CHOLECALCIFEROL 1,000 UNITS TABLET 1000 UNITS PO (08:12)
[2023-02-17] MEDS: SODIUM CHLORIDE 0.9% IV 1,000 ML 75 ML IV CONT (11:30)
--- NOTE | 2023-02-17 12:50 | P.DS_ITS ---
DS: Admitting Diagnosis Discharge Date 02/17/23 Admitting Diagnosis Fall Weakness Dizziness DS: Discharge Diagnosis Discharge Diagnosis (1) Head injury: Qualifiers: Encounter type: initial encounter Qualified Code(s): S09.90XA - Unspecified injury of head, initial encounter Code(s): S09.90XA - Unspecified injury of head, initial encounter Status: Acute Assessment and Plan: * CT spine showed questionable acute compression/impaction fracture deformity at the anterior inferior aspect of the C6 vertebral body, versus possibly chronic loss of height and chronic irregularity. Consider MR to assess for acute marrow edema. Reversal of the normal cervical lordosis, with minimal grade 1 anterolisthesis of C4 over C5, and of C5 over C6. Degenerative spondylosis,as above. * MRI showed acute/subacute compression fractures of C6, C7, and T1 with less than 1/5 loss of height. * neurosurgery ordered cervical collar/[place] J which she should wear at all times except when eating if this makes it difficult for her to swallow. Will f/u outpatient in 4 weeks. * Imaging should be repeated prior to next NSY appointment. * Date of discharge, 02/17/23: Same instructions apply for discharge at this time. Follow up with Neuro in 4 weeks. (2) Laceration of scalp: Qualifiers: Encounter type: initial encounter Qualified Code(s): S01.01XA - Laceration without foreign body of scalp, initial encounter Code(s): S01.01XA - Laceration without foreign body of scalp, initial encounter Status: Acute Assessment and Plan: * [address] and has adequate hemostasis * staple removed for MRI * Appears well approximated and scabbed over. * Date of discharge, 02/17/23: Appears adequately healed and without any s/s of infection. (3) Syncope: Qualifiers: Syncope type: unspecified Qualified Code(s): R55 - Syncope and collapse Code(s): R55 - Syncope and collapse Status: Acute Assessment and Plan: * check orthostatic vital signs when able * tele monitoring * fall precautions * PT/OT evaluation for likely placement due to recurrent falls * Placement in rehab pending. * Date of discharge, 02/17/23: Fall precautions will continue at outside facility. Telemetry is discontinued. Pt. is not orthostatic. PT agrees placement is necessary. (4) Abnormal urinalysis: Code(s): R82.90 - Unspecified abnormal findings in urine Status: Acute Assessment and Plan: * chronic urinary retention * Urine culture E.coli, sensitivity resulted * continue Rocephin, will transition to PO Augmentin when tolerating PO better * bladder scan showed >700 ml * urinary catheter placed, will plan for void trial today * urology consulted and recommended Myrbetriq (beta-3 agonist med. for overactive bladder without potential for cognitive issues).? * Today is day #5 of Rocephin therapy. She will not need any further abx for treatment of her E.coli. * Not meeting SIRS/Sepsis criteria. * Date of discharge, 02/17/23: IV Abx therapy for E.coli UTI finished yesterday and the sensitivity included the Rocephin that pt was placed on. No further treatment for discharge is needed. (5) Humerus fracture: Qualifiers: Encounter type: subsequent encounter Fracture type: closed Laterality: right Code(s): S42.309A - Unspecified fracture of shaft of humerus, unspecified arm, initial encounter for closed fracture Status: Acute Assessment and Plan: * pain is controlled as long as her arm is in the sling. * Healing witho
--- NOTE | 2023-02-17 12:50 | PM.DS ---
DS: Admitting Diagnosis Discharge Date 02/17/23 Admitting Diagnosis Fall Weakness Dizziness DS: Discharge Diagnosis Discharge Diagnosis (1) Head injury: Qualifiers: Encounter type: initial encounter Qualified Code(s): S09.90XA - Unspecified injury of head, initial encounter Code(s): S09.90XA - Unspecified injury of head, initial encounter Status: Acute Assessment and Plan: CT spine showed questionable acute compression/impaction fracture deformity at the anterior inferior aspect of the C6 vertebral body, versus possibly chronic loss of height and chronic irregularity. Consider MR to assess for acute marrow edema. Reversal of the normal cervical lordosis, with minimal grade 1 anterolisthesis of C4 over C5, and of C5 over C6. Degenerative spondylosis,as above. MRI showed acute/subacute compression fractures of C6, C7, and T1 with less than 1/5 loss of height. neurosurgery ordered cervical collar/[place] J which she should wear at all times except when eating if this makes it difficult for her to swallow. Will f/u outpatient in 4 weeks. Imaging should be repeated prior to next NSY appointment. Date of discharge, 02/17/23: Same instructions apply for discharge at this time. Follow up with Neuro in 4 weeks. (2) Laceration of scalp: Qualifiers: Encounter type: initial encounter Qualified Code(s): S01.01XA - Laceration without foreign body of scalp, initial encounter Code(s): S01.01XA - Laceration without foreign body of scalp, initial encounter Status: Acute Assessment and Plan: [address] and has adequate hemostasis staple removed for MRI Appears well approximated and scabbed over. Date of discharge, 02/17/23: Appears adequately healed and without any s/s of infection. (3) Syncope: Qualifiers: Syncope type: unspecified Qualified Code(s): R55 - Syncope and collapse Code(s): R55 - Syncope and collapse Status: Acute Assessment and Plan: check orthostatic vital signs when able tele monitoring fall precautions PT/OT evaluation for likely placement due to recurrent falls Placement in rehab pending. Date of discharge, 02/17/23: Fall precautions will continue at outside facility. Telemetry is discontinued. Pt. is not orthostatic. PT agrees placement is necessary. (4) Abnormal urinalysis: Code(s): R82.90 - Unspecified abnormal findings in urine Status: Acute Assessment and Plan: chronic urinary retention Urine culture E.coli, sensitivity resulted continue Rocephin, will transition to PO Augmentin when tolerating PO better bladder scan showed >700 ml urinary catheter placed, will plan for void trial today urology consulted and recommended Myrbetriq (beta-3 agonist med. for overactive bladder without potential for cognitive issues).? Today is day #5 of Rocephin therapy. She will not need any further abx for treatment of her E.coli. Not meeting SIRS/Sepsis criteria. Date of discharge, 02/17/23: IV Abx therapy for E.coli UTI finished yesterday and the sensitivity included the Rocephin that pt was placed on. No further treatment for discharge is needed. (5) Humerus fracture: Qualifiers: Encounter type: subsequent encounter Fracture type: closed Laterality: right Code(s): S42.309A - Unspecified fracture of shaft of humerus, unspecified arm, initial encounter for closed fracture Status: Acute Assessment and Plan: pain is controlled as long as her arm is in the sling. Healing without surgical repair, reported by the pt and family for elevated A1C. Continue PT/OT with precautions for Broken Humerus. Date of discharge, 02/17/23: Sling for stabilization and comfort. NO surgical repair performed. Continue with PT/OT. 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
[2023-02-17 13:30] LABS: Glucose Point of Care 241 mg/dl (65-105)
[2023-02-17] MEDS: INSULIN ASPART (*BKC) 100 UNITS/ML SUB-Q ×2 (14:21→18:35)
[2023-02-17] MEDS: ACETAMINOPHEN 325 MG TABLET 650 MG PO ×2 (14:58→23:59)
[2023-02-17] MEDS: ONDANSETRON INJ 4 MG/2 ML VIAL IV PUSH ×2 (15:34→21:23)
[2023-02-17] MEDS: traMADol HCL (*CRX) 50 MG TABLET PO ×2 (15:34→23:00)
--- NOTE | 2023-02-17 16:14 | ECG_ITS ---
Measurements Intervals [place] Rate: 103 P: 55 [place]: 185 QRS: -37 QRSD: 140 T: 133 QT: 362 QTc: 476 Interpretive Statements SINUS TACHYCARDIA LEFT AXIS DEVIATION LEFT BUNDLE BRANCH BLOCK ABNORMAL ECG COMPARED TO ECG 02/12/2023 18:26:38 SINUS TACHYCARDIA NOW PRESENT Electronically Signed On 02-17-2023 19:06:44 DOCTOR OF VETERINARY MEDICINE by Nelson Luna D.O.
--- NOTE | 2023-02-17 16:16 | PC.NURSE ---
1550 called Marzena Zhang DEVELOPMENT ANALYST to inform patient clazoeyy, c/o epigastric pain. BG 321 BP 102/69 HR 103, RA= 92% stat EKG and stat trop ordered.
[2023-02-17 16:32] LABS: Glucose Point of Care 321 mg/dl (65-105)
[2023-02-17 17:04] LABS: Troponin I 0.022 ng/mL (0.000-0.034)
--- NOTE | 2023-02-17 17:09 | ECG_ITS ---
Measurements Intervals [place] Rate: 103 P: 69 [place]: 198 QRS: -42 QRSD: 141 T: 128 QT: 352 QTc: 463 Interpretive Statements SINUS TACHYCARDIA LEFT AXIS DEVIATION LEFT BUNDLE BRANCH BLOCK BASELINE ARTIFACT- I, III, AVR, AVL, AVF ABNORMAL ECG COMPARED TO ECG 02/17/2023 16:19:29 NO SIGNIFICANT CHANGES Electronically Signed On 02-18-2023 6:35:55 CUSTOMER SUPPLY CHAIN ANALYST by Nelson Luna D.O.
--- NOTE | 2023-02-17 18:48 | PC.NURSE ---
1848 patient comfortable, denies needs, c/o slight headache, tylenol given.
--- NOTE | 2023-02-17 18:51 | PC.NURSE ---
called [facility] to inform of patient not coming tonight, possibly in the morning pending EKG and trop levels.
[2023-02-17 19:56] LABS: Glucose Point of Care 351 mg/dl (65-105)
[2023-02-17 20:37] LABS: Troponin I 0.223 ng/mL (0.000-0.034)
[2023-02-17] MEDS: GABAPENTIN 100 MG CAPSULE PO (21:23)
[2023-02-17 23:22] LABS: Troponin I 0.407 ng/mL (0.000-0.034)
--- NOTE | 2023-02-18 | ECHO_ITS ---
Patient Info Name: Nara Post Age: 83 years : 1940 Gender: Female Ht: 65 in Wt: 188 lbs BSA: 2.01 m2 HR: 95 bpm BP: 117 / 64 mmHg Heart Rhythm: Sinus Rhythm Technical Quality: Fair Exam Date: 02/18/2023 1:17 PM Exam Location: Echo Lab Patient Status: Inpatient Admit Date: 02/15/2023 Staff Ordering Physician: Angelina Ceron Stock Digger: Faviola Donato RDCS Attending Provider: Julissa Zhang Referring Physician: Jie RASCON; Exam Type: CA echo doppler color flow Study Info Indications R07.9 - Chest pain, unspecified Complete two-dimensional, color flow and Doppler transthoracic echocardiogram is performed. Summary 1. Complete two-dimensional, color flow and Doppler transthoracic echocardiogram is performed. 2. Technically difficult study with limited views. 3. Left ventricular chamber dimension is normal. 4. Left ventricular systolic function is moderately reduced, estimated at 35-40%. 5. There is no increased left ventricular wall thickness. 6. Left ventricular septal wall motion is abnormal with septal motion related to bundle branch block. 7. The left ventricular diastolic function is grade III diastolic dysfunction. 8. There is mild tricuspid valve regurgitation. 9. Moderate pulmonary hypertension, estimated pulmonary arterial systolic pressure is 48 mmHg. Left Ventricle Left ventricular chamber dimension is normal. Left ventricular systolic function is moderately reduced, estimated at 35-40%. There is no increased left ventricular wall thickness. Left ventricular septal wall motion is abnormal with septal motion related to bundle branch block. The left ventricular diastolic function is grade III diastolic dysfunction. Technically difficult study with limited views. Right Ventricle Right ventricular chamber dimension is normal. Right ventricular systolic function is normal. Left Atria Left atrial chamber dimension is normal. Right Atria Right atrial chamber dimension is normal. Aortic Valve The aortic valve is not well visualized. There is no aortic valve stenosis. There is no aortic valve regurgitation. Pulmonic Valve The pulmonic valve is not well visualized. Mitral Valve The mitral valve has thickened leaflets. There is trace mitral valve regurgitation. The mitral valve annulus is severely calcified. Tricuspid Valve The tricuspid valve leaflets are normal. There is mild tricuspid valve regurgitation. Moderate pulmonary hypertension, estimated pulmonary arterial systolic pressure is 48 mmHg. Pericardium/Pleural The pericardium appears not well visualized. Inferior Vena Cava Normal inferior vena cava with <50% collapse upon inspiration consistent with elevated right atrial pressure, 10 mmHg. Aorta The aortic root size at the sinus of Valsalva is normal. There is moderate aortic atherosclerosis. Left Ventricular Outflow Tract Name Value Normal LVOT 2D LVOT Diameter 2.0 cm LVOT Doppler LVOT Peak Gradient 3 mmHg LVOT Mean Gradient 1 mmHg LVOT VTI 10 cm LVOT VTI/AV VTI Ratio 0.6 LVOT Stroke Volume
--- NOTE | 2023-02-18 05:15 | PC.NURSE ---
Complains of midsternal pain, no radiation, denies nausea, denies any other symptoms, repeat EKG obtained with no changes.
--- NOTE | 2023-02-18 05:17 | ECG_ITS ---
Measurements Intervals [place] Rate: 96 P: 48 [place]: 164 QRS: -41 QRSD: 144 T: 130 QT: 367 QTc: 464 Interpretive Statements SINUS RHYTHM LEFT AXIS DEVIATION LEFT BUNDLE BRANCH BLOCK ABNORMAL ECG COMPARED TO ECG 02/17/2023 23:01:00 SINUS RHYTHM NOW PRESENT Electronically Signed On 02-18-2023 6:47:31 AUTOMOTIVE WINDOW TINTER by Nelson Luna D.O.
[2023-02-18 06:00] VITALS: BP 117/64; PULSE 96; RESP 20; TEMP 35.8; O2SAT 90
[2023-02-18 08:15] LABS: Glucose Point of Care 259 mg/dl (65-105)
[2023-02-18 09:10] VITALS: O2SAT 80
[2023-02-18] MEDS: ATORVASTATIN 40 MG TABLET 80 MG PO (09:11)
[2023-02-18] MEDS: INSULIN ASPART (*BKC) 100 UNITS/ML SUB-Q ×5 (09:11→22:00)
[2023-02-18 09:12] VITALS: PULSE 95
[2023-02-18] MEDS: METOPROLOL SUCCINATE EXT REL 25 MG TABCR PO (09:12)
[2023-02-18] MEDS: SACUBITRIL/VALSARTAN 24-26 MG TABLET 1 TAB PO ×2 (09:12→21:54)
[2023-02-18] MEDS: MIRABEGRON 50 MG ER TABLET PO (09:12)
[2023-02-18] MEDS: levETIRAcetam 500 MG TABLET PO ×2 (09:12→21:54)
[2023-02-18] MEDS: EMPAGLIFLOZIN 10 MG TABLET PO (09:12)
[2023-02-18] MEDS: CHOLECALCIFEROL 1,000 UNITS TABLET 1000 UNITS PO (09:12)
[2023-02-18] MEDS: MONTELUKAST SODIUM 10 MG TABLET PO (09:12)
[2023-02-18] MEDS: VENLAFAXINE HCL XR 75 MG CAP.ER.24H PO (09:12)
[2023-02-18] MEDS: INSULIN GLARGINE (*BKC) 100 UNITS/ML 18 UNITS SUB-Q (09:18)
--- NOTE | 2023-02-18 09:20 | PCOTNOTE ---
Patient having a cardiology consult and work-up. Per RN, wait to be seen.
--- NOTE | 2023-02-18 11:49 | PM.CNCAR ---
Assessment and Plan Assessment and plan (1) Chest pain: Code(s): R07.9 - Chest pain, unspecified Status: Acute Assessment and Plan: Patient had complaint of substernal chest pain yesterday afternoon. Patient reports intermittent chest pain for the past few months. Atypical chest pain. Her troponin levels are 0.022, 0.223, 0. 407. EKG shows sinus rhythm with a left bundle branch block which has been present on EKGs since admission. She did undergo a left heart catheterization in June of 2022 and was not found to have any significant coronary artery disease. Will check an echocardiogram I am also going to check a chest CTA because of hypoxia and new oxygen requirement will repeat a troponin level now further recommendations to follow the above testing (2) Cardiomyopathy: Code(s): I42.9 - Cardiomyopathy, unspecified Status: Acute Assessment and Plan: She is known to have systolic heart failure with an EF of 40% as well as diastolic dysfunction. Currently, she does not appear to be in any decompensated heart failure. Continue guideline directed medical therapy with Entresto, metoprolol, Jardiance. (3) Atrial fibrillation: Code(s): I48.91 - Unspecified atrial fibrillation Status: Acute Assessment and Plan: Daughter reports a history of atrial fibrillation that was identified when she was admitted to an outside hospital last year with a stroke. I was able to find records of a 30 day Holter monitor that was performed after the hospitalization that that not demonstrate any atrial fibrillation. None of her EKGs here show atrial fibrillation. She is not currently on telemetry. (4) Hypertension: Code(s): I10 - Essential (primary) hypertension Status: Acute Assessment and Plan: Her blood pressure is currently at goal. Continue current medical regim History of Present Illness History of Present Illness Consult date/time: 02/18/23 11:49 Requesting physician: Julissa Zhang APN-C Consult reason: chest pain Reason For Visit: Syncope, Head Injury, UTI Narrative: Nara Post is an 83 year old patient with Diabetes mellitus type 2, atrial fibrillation, CVA, nonischemic cardiomyopathy, and hypertension. This is a patient who was brought to the hospital following a ground level fall at home. cardiology is being asked to see her because of chest pain. Patient states that she has been having intermittent chest pain for a few months. She is lethargic and intermittently drifts off to sleep during my interview with her, so obtaining details about her history is somewhat difficult. However, her daughter is at the bedside to is able to provide some detail. Her daughter states that she has not heard her complaint of chest pain in the past. She is unable to describe what the chest pain feels like. She states that she is not currently having any chest pain. With the chest pain is present she states it is not very severe. She had a coronary angiogram done in June of 2022 that did not demonstrate any coronary artery disease. This test was done because of a newly diagnosed cardiomyopathy. Review of Systems Review of Systems: All systems reviewed & are unremarkable except as noted in HPI and below PENDING SALE TO [facility] Past Medical History Medical History (Updated 02/18/23 @ 12:49 by RADHA Aviles) Ankle pain, right CVA (cerebral vascular accident) Hyperlipidemia Hypertension Hypothyroidism Peripheral neuropathy Type 2 diabetes mellitus Vitamin D deficiency Surgical History Surgical History History of bilateral tubal ligation Status post cataract extraction of both eyes with insertion of intraocular lens Social History Social History Social History: Patient lives at home with her of over 60 years. She stated that she briefly smoked fo
[2023-02-18 12:19] LABS: Glucose Point of Care 378 mg/dl (65-105)
--- NOTE | 2023-02-18 13:05 | PCOTNOTE ---
Patient having testing done this afternoon, Patient was not seen for OT therapy services.
--- NOTE | 2023-02-18 13:10 | P.PNIM_ITS ---
Progress Note: A&P Assessment and Plan (1) Head injury: Qualifiers: Encounter type: initial encounter Qualified Code(s): S09.90XA - Unspecified injury of head, initial encounter Code(s): S09.90XA - Unspecified injury of head, initial encounter Status: Acute Assessment and Plan: * CT spine showed questionable acute compression/impaction fracture deformity at the anterior inferior aspect of the C6 vertebral body, versus possibly chronic loss of height and chronic irregularity. Consider MR to assess for acute marrow edema. Reversal of the normal cervical lordosis, with minimal grade 1 anterolisthesis of C4 over C5, and of C5 over C6. Degenerative spondylosis,as above. * MRI showed acute/subacute compression fractures of C6, C7, and T1 with less than 1/5 loss of height. * neurosurgery ordered cervical collar/[place] J which she should wear at all times except when eating if this makes it difficult for her to swallow. Will f/u outpatient in 4 weeks. * Imaging should be repeated prior to next NSY appointment. * Date of discharge, 02/17/23: Same instructions apply for discharge at this time. Follow up with Neuro in 4 weeks. * Patient did not discharge secondary to her chest today. Neurological symptoms today are increased lethargy. No focal findings. (2) Laceration of scalp: Qualifiers: Encounter type: initial encounter Qualified Code(s): S01.01XA - Laceration without foreign body of scalp, initial encounter Code(s): S01.01XA - Laceration without foreign body of scalp, initial encounter Status: Resolved Assessment and Plan: * [address] and has adequate hemostasis * staple removed for MRI * Appears well approximated and scabbed over. * Date of discharge, 02/17/23: Appears adequately healed and without any s/s of infection. * Resolved (3) Syncope: Qualifiers: Syncope type: unspecified Qualified Code(s): R55 - Syncope and collapse Code(s): R55 - Syncope and collapse Status: Acute Assessment and Plan: * check orthostatic vital signs when able * tele monitoring * fall precautions * PT/OT evaluation for likely placement due to recurrent falls * Placement in rehab pending. * Date of discharge, 02/17/23: Fall precautions will continue at outside facility. Telemetry is discontinued. Pt. is not orthostatic. PT agrees placement is necessary. * Higher suspicion now of cardiac causation. Cardiology has been consulted. Patient have CTA of chest as well as echo. (4) Abnormal urinalysis: Code(s): R82.90 - Unspecified abnormal findings in urine Status: Resolved Assessment and Plan: * chronic urinary retention * Urine culture E.coli, sensitivity resulted * continue Rocephin, will transition to PO Augmentin when tolerating PO better * bladder scan showed >700 ml * urinary catheter placed, will plan for void trial today * urology consulted and recommended Myrbetriq (beta-3 agonist med. for overactive bladder without potential for cognitive issues).? * Today is day #5 of Rocephin therapy. She will not need any further abx for treatment of her E.coli. * Not meeting SIRS/Sepsis criteria. * Date of discharge, 02/17/23: IV Abx therapy for E.coli UTI finished yesterday and the sensitivity included the Rocephin that pt was placed on. No further treatment for discharge is needed. * Resolved (5) Humerus fracture: Qualifiers: Encounter type: subsequent encounter Fracture type: closed Laterality: right Code(s): S42.309A - Unspecified fracture of shaft of humerus, unspecified arm, initial
--- NOTE | 2023-02-18 13:10 | PM.IMPN ---
Progress Note: A&P Assessment and Plan (1) Head injury: Qualifiers: Encounter type: initial encounter Qualified Code(s): S09.90XA - Unspecified injury of head, initial encounter Code(s): S09.90XA - Unspecified injury of head, initial encounter Status: Acute Assessment and Plan: CT spine showed questionable acute compression/impaction fracture deformity at the anterior inferior aspect of the C6 vertebral body, versus possibly chronic loss of height and chronic irregularity. Consider MR to assess for acute marrow edema. Reversal of the normal cervical lordosis, with minimal grade 1 anterolisthesis of C4 over C5, and of C5 over C6. Degenerative spondylosis,as above. MRI showed acute/subacute compression fractures of C6, C7, and T1 with less than 1/5 loss of height. neurosurgery ordered cervical collar/[place] J which she should wear at all times except when eating if this makes it difficult for her to swallow. Will f/u outpatient in 4 weeks. Imaging should be repeated prior to next [facility] appointment. Date of discharge, 02/17/23: Same instructions apply for discharge at this time. Follow up with Neuro in 4 weeks. Patient did not discharge secondary to her chest today. Neurological symptoms today are increased lethargy. No focal findings. (2) Laceration of scalp: Qualifiers: Encounter type: initial encounter Qualified Code(s): S01.01XA - Laceration without foreign body of scalp, initial encounter Code(s): S01.01XA - Laceration without foreign body of scalp, initial encounter Status: Resolved Assessment and Plan: [address] and has adequate hemostasis staple removed for MRI Appears well approximated and scabbed over. Date of discharge, 02/17/23: Appears adequately healed and without any s/s of infection. Resolved (3) Syncope: Qualifiers: Syncope type: unspecified Qualified Code(s): R55 - Syncope and collapse Code(s): R55 - Syncope and collapse Status: Acute Assessment and Plan: check orthostatic vital signs when able tele monitoring fall precautions PT/OT evaluation for likely placement due to recurrent falls Placement in rehab pending. Date of discharge, 02/17/23: Fall precautions will continue at outside facility. Telemetry is discontinued. Pt. is not orthostatic. PT agrees placement is necessary. Higher suspicion now of cardiac causation. Cardiology has been consulted. Patient have CTA of chest as well as echo. (4) Abnormal urinalysis: Code(s): R82.90 - Unspecified abnormal findings in urine Status: Resolved Assessment and Plan: chronic urinary retention Urine culture E.coli, sensitivity resulted continue Rocephin, will transition to PO Augmentin when tolerating PO better bladder scan showed >700 ml urinary catheter placed, will plan for void trial today urology consulted and recommended Myrbetriq (beta-3 agonist med. for overactive bladder without potential for cognitive issues).? Today is day #5 of Rocephin therapy. She will not need any further abx for treatment of her E.coli. Not meeting SIRS/Sepsis criteria. Date of discharge, 02/17/23: IV Abx therapy for E.coli UTI finished yesterday and the sensitivity included the Rocephin that pt was placed on. No further treatment for discharge is needed. Resolved (5) Humerus fracture: Qualifiers: Encounter type: subsequent encounter Fracture type: closed Laterality: right Code(s): S42.309A - Unspecified fracture of shaft of humerus, unspecified arm, initial encounter for closed fracture Status: Acute Assessment and Plan: pain is controlled as long as her arm is in the sling. Healing without surgical repair, reported by the pt and family for elevated A1C. Continue PT/OT with precautions for Broken Humerus. Date of discharge, 02/17/23: Sling for stabilization and comfort. NO surgical repair performed. Continue with P
[2023-02-18 14:00] VITALS: BP 116/64; PULSE 88; RESP 18; TEMP 36.3; O2SAT 94
[2023-02-18 14:00] LABS: Troponin I 0.407 ng/mL (0.000-0.034)
[2023-02-18] MEDS: SODIUM CHLORIDE 0.9% IV 1,000 ML 75 ML IV CONT (14:11)
[2023-02-18 15:29] LABS: Alanine Aminotransferase 127 U/L (6-35); Albumin Level 3.1 g/dL (3.5-5.1); Alkaline Phosphatase 182 U/L (38-126); Anion Gap 10 mmol/L (8-16); Aspartate Amino Transferase 81 U/L (14-36); Bilirubin,Total 0.4 mg/dL (0.2-1.3); Blood Urea Nitrogen 38 mg/dL (7-17); Calcium 8.9 mg/dL (8.4-10.2); Carbon Dioxide 18 mmol/L (22-30); Chloride 107 mmol/L (98-107); Estimated CRCL calculation 29 ml/min; Estimated Glomerular Filt Rate 36; Glucose 336 mg/dL (65-110); Sodium 135 mmol/L (137-145)
[2023-02-18 16:00] VITALS: PULSE 90
--- NOTE | 2023-02-18 16:20 | PCPTNOTE ---
The patient treatment was not able to be completed due to patient having testing done bed side this afternoon. Will plan to continue treatment per plan of care.
[2023-02-18 16:57] LABS: Glucose Point of Care 285 mg/dl (65-105)
[2023-02-18] MEDS: HEPARIN SOD/D5W 100 UNITS/ML 25,000 UNITS/250 ML BAG 12 UNITS IV CONT (18:26)
[2023-02-18] MEDS: HEPARIN SODIUM 5,000 UNITS/ML VIAL 5500 UNITS IV PUSH (18:26)
[2023-02-18 18:38] LABS: Basophils Absolute Auto 0.1 K/mm3 (0.0-0.1); Basophils Percent Auto 0.6 % (0.2-1.2); Eosinophils Absolute Auto 0.4 K/mm3 (0-0.3); Eosinophils Percent Auto 2.9 % (0-4.4); Hematocrit 37.6 % (37.0-47.0); Hemoglobin 10.8 g/dL (12.0-15.0); Immature Granulocyte Absolute 0.11 K/mm3 (0.00-0.031); Immature Granulocyte Percent A 0.9 % (0-0.5); Lymphocytes Absolute Auto 1.67 K/mm3 (0.9-3.2); Mean Corpuscular HGB Conc 28.7 g/dl (32-36); Mean Corpuscular Hemoglobin 29.8 pg (26-34); Mean Corpuscular Volume 103.6 fl (80-100); Mean Platelet Volume 10.1 fl (7.4-10.4); Monocytes Percent Auto 7.5 % (2.6-8.5); Neutrophils Absolute Auto 9.6 K/mm3 (1.3-6.7); Neutrophils Percent Auto 75.1 % (45.5-73.1); Platelet Count Result 111 k/mm3 (150-375); Red Blood Count 3.63 M/mm3 (4.2-5.4); Red Cell Distribution Width 14.8 % (11.5-14.5); White Blood Count 12.8 K/mm3 (4.5-10.0)
[2023-02-18 18:49] LABS: INR 1.2; Prothrombin Time 15.6 Seconds (11.1-14.7)
[2023-02-18 18:56] LABS: Platelet Estimate Decreased (Adequate); Schistocytes None Seen (NORMAL)
[2023-02-18 18:57] LABS: Anisocytosis 2+ (NORMAL); Hypochromasia 1+ (NORMAL)
[2023-02-18] MEDS: GABAPENTIN 100 MG CAPSULE PO (21:54)
[2023-02-18 22:00] VITALS: BP 105/64; PULSE 93; RESP 18; TEMP 36.5; O2SAT 94
[2023-02-18] MEDS: INSULIN GLARGINE (*BKC) 100 UNITS/ML 25 UNITS SUB-Q (22:00)
[2023-02-18 22:01] LABS: Glucose Point of Care 245 mg/dl (65-105)
[2023-02-19] VITALS (10 sets, daily range): BP systolic 134–153; BP diastolic 55–64; PULSE 89–96; RESP 16–18; TEMP 36.3–36.8; O2SAT 91–100
[2023-02-19 01:11] LABS: INR 1.3; Prothrombin Time 16.9 Seconds (11.1-14.7)
[2023-02-19 01:27] LABS: Partial Thromboplastin Time > 200.0 SECONDS (22.3-36.8)
[2023-02-19] MEDS: SODIUM CHLORIDE 0.9% IV 1,000 ML 75 ML IV CONT ×2 (03:39→17:22)
[2023-02-19] MEDS: MORPHINE SULFATE (*CRX) 4 MG/ML INJ IV PUSH (05:38)
[2023-02-19] MEDS: LEVOTHYROXINE SODIUM 75 MCG TABLET PO (06:59)
[2023-02-19 07:56] LABS: Glucose Point of Care 202 mg/dl (65-105)
[2023-02-19 08:03] LABS: Basophils Absolute Auto 0.1 K/mm3 (0.0-0.1); Basophils Percent Auto 0.3 % (0.2-1.2); Eosinophils Absolute Auto 0.5 K/mm3 (0-0.3); Hematocrit 34.6 % (37.0-47.0); Hemoglobin 10.5 g/dL (12.0-15.0); Immature Granulocyte Absolute 0.22 K/mm3 (0.00-0.031); Immature Granulocyte Percent A 1.3 % (0-0.5); Lymphocytes Absolute Auto 2.09 K/mm3 (0.9-3.2); Lymphocytes Percent Auto 12.8 % (18.3-44.2); Mean Corpuscular HGB Conc 30.3 g/dl (32-36); Mean Corpuscular Hemoglobin 30.2 pg (26-34); Mean Corpuscular Volume 99.4 fl (80-100); Mean Platelet Volume 10.4 fl (7.4-10.4); Monocytes Absolute Auto 1.1 K/mm3 (0.1-0.6); Monocytes Percent Auto 6.8 % (2.6-8.5); Neutrophils Absolute Auto 12.4 K/mm3 (1.3-6.7); Neutrophils Percent Auto 75.8 % (45.5-73.1); Nucleated Red Blood Cells Perc 0.1 % (0.0-0.2); Platelet Count Result 130 k/mm3 (150-375); Red Blood Count 3.48 M/mm3 (4.2-5.4); White Blood Count 16.4 K/mm3 (4.5-10.0)
[2023-02-19 08:19] LABS: Partial Thromboplastin Time 158.1 SECONDS (22.3-36.8)
[2023-02-19 08:21] LABS: Alanine Aminotransferase 94 U/L (6-35); Albumin Level 2.9 g/dL (3.5-5.1); Alkaline Phosphatase 161 U/L (38-126); Anion Gap 6 mmol/L (8-16); Aspartate Amino Transferase 47 U/L (14-36); Bilirubin,Total 0.5 mg/dL (0.2-1.3); Blood Urea Nitrogen 32 mg/dL (7-17); Calcium 8.4 mg/dL (8.4-10.2); Carbon Dioxide 22 mmol/L (22-30); Chloride 106 mmol/L (98-107); Estimated CRCL calculation 31 ml/min; Estimated Glomerular Filt Rate 39; Glucose 211 mg/dL (65-110); Magnesium 1.8 mg/dL (1.6-2.3); Potassium 4.7 mmol/L (3.4-5.0); Sodium 134 mmol/L (137-145)
[2023-02-19] MEDS: VENLAFAXINE HCL XR 75 MG CAP.ER.24H PO (09:21)
[2023-02-19] MEDS: MONTELUKAST SODIUM 10 MG TABLET PO (09:21)
[2023-02-19] MEDS: SACUBITRIL/VALSARTAN 24-26 MG TABLET 1 TAB PO ×2 (09:21→21:08)
[2023-02-19] MEDS: ATORVASTATIN 40 MG TABLET 80 MG PO (09:21)
[2023-02-19] MEDS: METOPROLOL SUCCINATE EXT REL 25 MG TABCR PO (09:22)
[2023-02-19] MEDS: EMPAGLIFLOZIN 10 MG TABLET PO (09:22)
[2023-02-19] MEDS: MIRABEGRON 50 MG ER TABLET PO (09:22)
[2023-02-19] MEDS: levETIRAcetam 500 MG TABLET PO ×2 (09:22→21:07)
[2023-02-19] MEDS: CHOLECALCIFEROL 1,000 UNITS TABLET 1000 UNITS PO (09:22)
[2023-02-19] MEDS: INSULIN ASPART (*BKC) 100 UNITS/ML SUB-Q ×3 (09:23→21:10)
--- NOTE | 2023-02-19 09:34 | PM.PNCARD ---
Progress Note: A&P Assessment and Plan (1) Chest pain: Code(s): R07.9 - Chest pain, unspecified Status: Acute Assessment and Plan: Patient had complaint of substernal chest pain yesterday afternoon. Patient reports intermittent chest pain for the past few months. Atypical chest pain. Her troponin levels are 0.022, 0.223, 0. 407. EKG shows sinus rhythm with a left bundle branch block which has been present on EKGs since admission. She did undergo a left heart catheterization in June of 2022 and was not found to have any significant coronary artery disease. Chest pain related to pulmonary embolism. (2) Cardiomyopathy: Code(s): I42.9 - Cardiomyopathy, unspecified Status: Acute Assessment and Plan: She is known to have systolic heart failure with an EF of 40% as well as diastolic dysfunction. She is having some diffuse edema. Will give her dose of IV furosemide 20 mg x 1 today. Continue guideline directed medical therapy with Entresto, metoprolol, Jardiance. (3) Atrial fibrillation: Code(s): I48.91 - Unspecified atrial fibrillation Status: Acute Assessment and Plan: Daughter reports a history of atrial fibrillation that was identified when she was admitted to an outside hospital last year with a stroke. I was able to find records of a 30 day Holter monitor that was performed after the hospitalization that that not demonstrate any atrial fibrillation. None of her EKGs here show atrial fibrillation. She is not currently on telemetry. (4) Hypertension: Code(s): I10 - Essential (primary) hypertension Status: Acute Assessment and Plan: Her blood pressure is currently at goal. Continue current medical regim (5) Pulmonary embolism: Code(s): I26.99 - Other pulmonary embolism without acute cor pulmonale Status: Acute Assessment and Plan: On heparin Subjective Date/time seen: 02/19/23 09:34 Interval history: This patient was examined at the bedside this morning in interval assessment. She was to discharge to [facility] bed last evening, however, prior to discharge she began having chest pain. To be present, discharge and transfer was held and workup was performed. EKG showing left bundle-branch block that was not new. In addition she had elevated troponin that had trended upward. Date of service 02/19/2023: She was sign pulmonary embolism. She remains on oxygen as swelling. No chest pain present Review of Systems Review of Systems: All systems reviewed & are unremarkable except as noted in HPI and below Constitutional: Constitutional: Denies body ache(s) Musculoskeletal: Comments: Edema Exam Const: General: comfortable, no acute distress, alert and awake (lethargic) Orientation/consciousness: patient oriented x3 HENMT: Head: normal to inspection Eyes: General: appearance normal, both eyes and all related structures Sclera: sclerae normal Neck: Neck: normal visual inspection, supple and no JVD Carotids: normal carotid upstroke Other: C collar in place Resp: Effort & Inspection: normal respiratory effort Auscultation: diminished lung sounds Cardio: Rate: regular rate Rhythm: regular rhythm Heart sounds: S1 normal heart sound present, S2 normal heart sound present and no murmurs GI: Auscultation: normal bowel sounds Skin: General skin exam: normal color Neuro: General: patient oriented x3 Extrem: General: edema Other: Diffuse edema noted Psych: Appearance: grossly normal Mental Status: mental status grossly normal Objective Data Vital Signs Vital Signs: Vital Signs - 24 hr 02/18/23 16:00 02/18/23 14:00 02/18/23 22:00 Temperature 36.3 C L 36.5 C Pulse Rate 90 88 93 Respiratory Rate 18 18 Blood Pressure 116/64 105/64 Pulse Oximetry 94 94 Oxygen Delivery 02/18/23 20:00 02/19/23 05:34 Temperature 36.8 C Pulse Rate 89 Respiratory Rate 16 Blood Pre
[2023-02-19] MEDS: FUROSEMIDE INJ 40 MG/4 ML VIAL 20 MG IV PUSH (09:52)
--- NOTE | 2023-02-19 11:07 | P.PNIM_ITS ---
Progress Note: A&P Assessment and Plan (1) Head injury: Qualifiers: Encounter type: initial encounter Qualified Code(s): S09.90XA - Unspecified injury of head, initial encounter Code(s): S09.90XA - Unspecified injury of head, initial encounter Status: Acute Assessment and Plan: * CT spine showed questionable acute compression/impaction fracture deformity at the anterior inferior aspect of the C6 vertebral body, versus possibly chronic loss of height and chronic irregularity. Consider MR to assess for acute marrow edema. Reversal of the normal cervical lordosis, with minimal grade 1 anterolisthesis of C4 over C5, and of C5 over C6. Degenerative spondylosis,as above. * MRI showed acute/subacute compression fractures of C6, C7, and T1 with less than 1/5 loss of height. * neurosurgery ordered cervical collar/[place] J which she should wear at all times except when eating if this makes it difficult for her to swallow. Will f/u outpatient in 4 weeks. * Imaging should be repeated prior to next [facility]Y appointment. * Date of discharge, 02/17/23: Same instructions apply for discharge at this time. Follow up with Neuro in 4 weeks. * Patient did not discharge secondary to her chest today. Neurological symptoms today are increased lethargy. No focal findings. * 02/19/23: Pt with increased lethargy today. She responds to stimuli, however is very slow to initiate speech and does not answer all questions. (2) Pulmonary embolism: Qualifiers: Pulmonary embolism type: unspecified Chronicity: acute Acute cor pulm onale presence: with acute cor pulmonale Qualified Code(s): I26.09 - Other pulmonary embolism with acute cor pulmonale Code(s): I26.99 - Other pulmonary embolism without acute cor pulmonale Status: Acute Assessment and Plan: * See plans below for #2 and 3. * Suspect pt developed clots secondary to Acute orthopedic injuries. * Pt is a DNR. * She is on a heparin drip. * Not a likely candidate for thrombectomy as her ECHO shows no right heart strain, despite her CTA suggesting. * Pt's condition is overall guarded. * Will attempt to place on Eliquis in the next few days. * Check BLE venous doppler. (3) Chest pain: Code(s): R07.9 - Chest pain, unspecified Status: Acute Assessment and Plan: * EKG is unchanged from previous, showing left bundle-branch block. * Troponins are elevated and have trended upward from 0.223 to 0.407 * Cardiology consult placed * CTA PE protocol ordered * Echo ordered * Telemetry * Monitor vital signs. * 02/19/23: 02/19/23: ECHO performed last evening with moderately reduced LVSF w/EF of 35-40%. There is also grade 3 diastolic dysfunction, and moderate pulmonary HTN. CTA PE protocol was performed last evening and pt was found to have bilateral PE's with large clot burden and evidence of Right heart strain, although there was no heart strain visible on ECHO. Cardiology continuing to follow along with medicine. Lasix 20 mg ordered today for concern of peripheral edema. (4) Hypoxic: Code(s): R09.02 - Hypoxemia Status: Acute Assessment and Plan: * Patient requiring supplemental oxygenation this a.m. when oxygen saturations dropped into the 80s. * Patient's current oxygenation stable at 1 L per nasal cannula. * CTA PE protocol ordered * Continue to monitor vital signs. * 02/19/23: See Plan for #2 and 3. Pt DNR and currently stable on 1L NC. (5) Syncope: Qualifiers: Syncope type: unspecified Qualified Code(s): R55 - Syncope and collapse Code(s): R55 - Syncope and collapse
--- NOTE | 2023-02-19 11:07 | PM.IMPN ---
Progress Note: A&P Assessment and Plan (1) Head injury: Qualifiers: Encounter type: initial encounter Qualified Code(s): S09.90XA - Unspecified injury of head, initial encounter Code(s): S09.90XA - Unspecified injury of head, initial encounter Status: Acute Assessment and Plan: CT spine showed questionable acute compression/impaction fracture deformity at the anterior inferior aspect of the C6 vertebral body, versus possibly chronic loss of height and chronic irregularity. Consider MR to assess for acute marrow edema. Reversal of the normal cervical lordosis, with minimal grade 1 anterolisthesis of C4 over C5, and of C5 over C6. Degenerative spondylosis,as above. MRI showed acute/subacute compression fractures of C6, C7, and T1 with less than 1/5 loss of height. neurosurgery ordered cervical collar/[place] J which she should wear at all times except when eating if this makes it difficult for her to swallow. Will f/u outpatient in 4 weeks. Imaging should be repeated prior to next [facility] appointment. Date of discharge, 02/17/23: Same instructions apply for discharge at this time. Follow up with Neuro in 4 weeks. Patient did not discharge secondary to her chest today. Neurological symptoms today are increased lethargy. No focal findings. 02/19/23: Pt with increased lethargy today. She responds to stimuli, however is very slow to initiate speech and does not answer all questions. (2) Pulmonary embolism: Qualifiers: Pulmonary embolism type: unspecified Chronicity: acute Acute cor pulmonale presence: with acute cor pulmonale Qualified Code(s): I26.09 - Other pulmonary embolism with acute cor pulmonale Code(s): I26.99 - Other pulmonary embolism without acute cor pulmonale Status: Acute Assessment and Plan: See plans below for #2 and 3. Suspect pt developed clots secondary to Acute orthopedic injuries. Pt is a DNR. She is on a heparin drip. Not a likely candidate for thrombectomy as her ECHO shows no right heart strain, despite her CTA suggesting. Pt's condition is overall guarded. Will attempt to place on Eliquis in the next few days. Check BLE venous doppler. (3) Chest pain: Code(s): R07.9 - Chest pain, unspecified Status: Acute Assessment and Plan: EKG is unchanged from previous, showing left bundle-branch block. Troponins are elevated and have trended upward from 0.223 to 0.407 Cardiology consult placed CTA PE protocol ordered Echo ordered [employer] vital signs. 02/19/23: 02/19/23: ECHO performed last evening with moderately reduced LVSF w/EF of 35-40%. There is also grade 3 diastolic dysfunction, and moderate pulmonary HTN. CTA PE protocol was performed last evening and pt was found to have bilateral PE's with large clot burden and evidence of Right heart strain, although there was no heart strain visible on ECHO. Cardiology continuing to follow along with medicine. Lasix 20 mg ordered today for concern of peripheral edema. (4) Hypoxic: Code(s): R09.02 - Hypoxemia Status: Acute Assessment and Plan: Patient requiring supplemental oxygenation this a.m. when oxygen saturations dropped into the 80s. Patient's current oxygenation stable at 1 L per nasal cannula. CTA PE protocol ordered Continue to monitor vital signs. 02/19/23: See Plan for #2 and 3. Pt DNR and currently stable on 1L NC. (5) Syncope: Qualifiers: Syncope type: unspecified Qualified Code(s): R55 - Syncope and collapse Code(s): R55 - Syncope and collapse Status: Acute Assessment and Plan: check orthostatic vital signs when able tele monitoring fall precautions PT/OT evaluation for likely placement due to recurrent falls Placement in rehab pending. Date of discharge, 02/17/23: Fall precautions will continue at outside facility. Telemetry is discontinued. Pt. is not orthostatic. PT agrees placement is necessary. Hi
[2023-02-19 12:18] LABS: Glucose Point of Care 175 mg/dl (65-105)
[2023-02-19] MEDS: cefTRIAXone 2 GM/NS 100 ML 2 GM/100 ML BAG IVPB (12:40)
--- NOTE | 2023-02-19 13:34 | PCOTNOTE ---
Occupational Therapy treatment not completed today due to awaiting a Doppler test/results. Will continue per poc duration/frequency when appropriate.
[2023-02-19 13:51] LABS: Appearance Urine Clear (Clear); Bacteria Urine None Seen /hpf; Bilirubin Urine Negative (Negative); Blood Urine Negative (Negative); Budding Yeast Urine Present /hpf; Color Urine Yellow (Yellow); Glucose Urine UA 3+ mg/dL (Negative); Ketones Urine Negative (Negative); Leukocyte Esterase Ur 1+ LEU/UL (Negative); Need Manual Microscopic Reviewed; Nitrate Urine Negative (Negative); Protein Urine Negative (Negative); Squamous Epithelial Cell Urine None seen /hpf (Few); Urobilinogen Urine 0.2 mg/dL (<2.0); WBC Urine 21-50 /hpf
[2023-02-19 13:53] LABS: Add Urine Microscopic? YES
--- NOTE | 2023-02-19 16:29 | PCPTNOTE ---
The patient is a patient hold today due to patient not waking up. RN stated that it would be best to hold off for today. Will continue per PT plan of care.
[2023-02-19 16:39] LABS: Glucose Point of Care 150 mg/dl (65-105)
[2023-02-19 16:58] LABS: Partial Thromboplastin Time 74.8 SECONDS (22.3-36.8)
[2023-02-19] MEDS: LIDOCAINE HCL 1% PF INJ 5 ML VIAL INFILTRATE (18:00)
[2023-02-19] MEDS: GABAPENTIN 100 MG CAPSULE PO (21:08)
[2023-02-19] MEDS: INSULIN GLARGINE (*BKC) 100 UNITS/ML 30 UNITS SUB-Q (21:10)
[2023-02-19] MEDS: CENTRAL LINE FLUSH 10 ML IV PUSH (21:10)
[2023-02-19 21:59] LABS: Glucose Point of Care 238 mg/dl (65-105)
[2023-02-19] MEDS: traMADol HCL (*CRX) 50 MG TABLET PO (22:09)
[2023-02-19 23:42] LABS: Partial Thromboplastin Time 72.5 SECONDS (22.3-36.8)
[2023-02-20] VITALS (11 sets, daily range): BP systolic 118–147; BP diastolic 61–62; PULSE 70–101; RESP 16–20; TEMP 36.1–36.8; O2SAT 94–100
[2023-02-20] MEDS: HEPARIN SOD/D5W 100 UNITS/ML 25,000 UNITS/250 ML BAG 8 UNITS IV CONT
[2023-02-20] MEDS: ACETAMINOPHEN 325 MG TABLET 650 MG PO (01:02)
[2023-02-20] MEDS: LEVOTHYROXINE SODIUM 75 MCG TABLET PO (05:32)
[2023-02-20] MEDS: CENTRAL LINE FLUSH 10 ML IV PUSH ×3 (05:32→21:42)
[2023-02-20 05:54] LABS: Basophils Percent Auto 0.3 % (0.2-1.2); Eosinophils Absolute Auto 0.5 K/mm3 (0-0.3); Eosinophils Percent Auto 4.3 % (0-4.4); Hematocrit 28.9 % (37.0-47.0); Hemoglobin 8.8 g/dL (12.0-15.0); Immature Granulocyte Absolute 0.15 K/mm3 (0.00-0.031); Immature Granulocyte Percent A 1.3 % (0-0.5); Lymphocytes Absolute Auto 1.98 K/mm3 (0.9-3.2); Lymphocytes Percent Auto 17.2 % (18.3-44.2); Mean Corpuscular HGB Conc 30.4 g/dl (32-36); Mean Corpuscular Hemoglobin 29.4 pg (26-34); Mean Corpuscular Volume 96.7 fl (80-100); Mean Platelet Volume 10.3 fl (7.4-10.4); Monocytes Absolute Auto 0.9 K/mm3 (0.1-0.6); Monocytes Percent Auto 7.8 % (2.6-8.5); Neutrophils Percent Auto 69.1 % (45.5-73.1); Platelet Count Result 127 k/mm3 (150-375); Red Blood Count 2.99 M/mm3 (4.2-5.4); Red Cell Distribution Width 14.6 % (11.5-14.5); White Blood Count 11.5 K/mm3 (4.5-10.0)
[2023-02-20 06:05] LABS: Partial Thromboplastin Time 59.4 SECONDS (22.3-36.8)
[2023-02-20 06:07] LABS: Alanine Aminotransferase 65 U/L (6-35); Albumin Level 2.5 g/dL (3.5-5.1); Alkaline Phosphatase 126 U/L (38-126); Anion Gap 5 mmol/L (8-16); Aspartate Amino Transferase 50 U/L (14-36); Bilirubin,Total 0.4 mg/dL (0.2-1.3); Blood Urea Nitrogen 35 mg/dL (7-17); Carbon Dioxide 24 mmol/L (22-30); Chloride 103 mmol/L (98-107); Estimated CRCL calculation 29 ml/min; Estimated Glomerular Filt Rate 36; Glucose 184 mg/dL (65-110); Magnesium 1.8 mg/dL (1.6-2.3); Potassium 4.2 mmol/L (3.4-5.0); Sodium 132 mmol/L (137-145)
[2023-02-20] MEDS: HEPARIN SODIUM 5,000 UNITS/ML VIAL 2500 UNITS IV PUSH (06:14)
[2023-02-20 07:58] LABS: Glucose Point of Care 151 mg/dl (65-105)
--- NOTE | 2023-02-20 08:45 | PM.PNCARD ---
Progress Note: A&P Assessment and Plan (1) Chest pain: Code(s): R07.9 - Chest pain, unspecified Status: Acute Assessment and Plan: Patient had complaint of substernal chest pain yesterday afternoon. Patient reports intermittent chest pain for the past few months. Atypical chest pain. Her troponin levels are 0.022, 0.223, 0. 407. EKG shows sinus rhythm with a left bundle branch block which has been present on EKGs since admission. She did undergo a left heart catheterization in June of 2022 and was not found to have any significant coronary artery disease. Chest pain related to pulmonary embolism. (2) Cardiomyopathy: Code(s): I42.9 - Cardiomyopathy, unspecified Status: Acute Assessment and Plan: She is known to have systolic heart failure with an EF of 40% as well as diastolic dysfunction. She is having some diffuse edema. Will discontinue her IV fluids today. She is eating and drinking. Swelling is better after diuretics yesterday but still present. Continue guideline directed medical therapy with Entresto, metoprolol, Jardiance. (3) Atrial fibrillation: Code(s): I48.91 - Unspecified atrial fibrillation Status: Acute Assessment and Plan: Daughter reports a history of atrial fibrillation that was identified when she was admitted to an outside hospital last year with a stroke. I was able to find records of a 30 day Holter monitor that was performed after the hospitalization that that not demonstrate any atrial fibrillation. None of her EKGs here show atrial fibrillation. She is not currently on telemetry. (4) Hypertension: Code(s): I10 - Essential (primary) hypertension Status: Acute Assessment and Plan: Her blood pressure is currently at goal. Continue current medical regim (5) Pulmonary embolism: Qualifiers: Pulmonary embolism type: unspecified Chronicity: acute Acute cor pulmonale presence: with acute cor pulmonale Qualified Code(s): I26.09 - Other pulmonary embolism with acute cor pulmonale Code(s): I26.99 - Other pulmonary embolism without acute cor pulmonale Status: Acute Assessment and Plan: On heparin Subjective Date/time seen: 02/20/23 08:45 Interval history: This patient was examined at the bedside this morning in interval assessment. She was to discharge to [facility] bed last evening, however, prior to discharge she began having chest pain. To be present, discharge and transfer was held and workup was performed. EKG showing left bundle-branch block that was not new. In addition she had elevated troponin that had trended upward. Date of service 02/19/2023: She was sign pulmonary embolism. She remains on oxygen as swelling. No chest pain present Date of service 02/20/2023: Less swollen today. No chest pain. Feels little bit better but still weak Review of Systems Review of Systems: All systems reviewed & are unremarkable except as noted in HPI and below Constitutional: Constitutional: Denies body ache(s) Cardiovascular: Comments: No chest pain Exam Const: General: comfortable, no acute distress, alert and awake (lethargic) Orientation/consciousness: patient oriented x3 HENMT: Head: normal to inspection Eyes: General: appearance normal, both eyes and all related structures Sclera: sclerae normal Neck: Neck: normal visual inspection, supple and no JVD Other: C collar in place Resp: Effort & Inspection: normal respiratory effort Auscultation: clear to auscultation bilaterally and diminished lung sounds Cardio: Rate: regular rate Rhythm: regular rhythm Heart sounds: S1 normal heart sound present, S2 normal heart sound present and no murmurs GI: Auscultation: normal bowel sounds Skin: General skin exam: normal color Neuro: General: patient oriented x3 Speech: normal speech Extrem: General: normal to inspection and edema Other: Diffuse edema
[2023-02-20] MEDS: MIRABEGRON 50 MG ER TABLET PO (09:23)
[2023-02-20] MEDS: ATORVASTATIN 40 MG TABLET 80 MG PO (09:23)
[2023-02-20] MEDS: MONTELUKAST SODIUM 10 MG TABLET PO (09:23)
[2023-02-20] MEDS: EMPAGLIFLOZIN 10 MG TABLET PO (09:23)
[2023-02-20] MEDS: CHOLECALCIFEROL 1,000 UNITS TABLET 1000 UNITS PO (09:23)
[2023-02-20] MEDS: levETIRAcetam 500 MG TABLET PO ×2 (09:23→21:35)
[2023-02-20] MEDS: SACUBITRIL/VALSARTAN 24-26 MG TABLET 1 TAB PO ×2 (09:24→21:36)
[2023-02-20] MEDS: VENLAFAXINE HCL XR 75 MG CAP.ER.24H PO (09:24)
[2023-02-20] MEDS: METOPROLOL SUCCINATE EXT REL 25 MG TABCR PO (09:24)
--- NOTE | 2023-02-20 11:07 | P.PNIM_ITS ---
Progress Note: A&P Assessment and Plan (1) Head injury: Qualifiers: Encounter type: initial encounter Qualified Code(s): S09.90XA - Unspecified injury of head, initial encounter Code(s): S09.90XA - Unspecified injury of head, initial encounter Status: Acute Assessment and Plan: * CT spine showed questionable acute compression/impaction fracture deformity at the anterior inferior aspect of the C6 vertebral body, versus possibly chronic loss of height and chronic irregularity. Consider MR to assess for acute marrow edema. Reversal of the normal cervical lordosis, with minimal grade 1 anterolisthesis of C4 over C5, and of C5 over C6. Degenerative spondylosis,as above. * MRI showed acute/subacute compression fractures of C6, C7, and T1 with less than 1/5 loss of height. * neurosurgery ordered cervical collar/[place] J which she should wear at all times except when eating if this makes it difficult for her to swallow. Will f/u outpatient in 4 weeks. * Imaging should be repeated prior to next [facility]Y appointment. * Date of discharge, 02/17/23: Same instructions apply for discharge at this time. Follow up with Neuro in 4 weeks. * Patient did not discharge secondary to her chest today. Neurological symptoms today are increased lethargy. No focal findings. * 02/19/23: Pt with increased lethargy today. She responds to stimuli, however is very slow to initiate speech and does not answer all questions. * 02/20/23: Pt improved drastically today, now spontaneously alert, oriented x3 and cooperative without any acute distress. Initiates conversation and interaction. (2) Pulmonary embolism: Qualifiers: Pulmonary embolism type: unspecified Chronicity: acute Acute cor pulmonale presence: with acute cor pulmonale Qualified Code(s): I26.09 - Other pulmonary embolism with acute cor pulmonale Code(s): I26.99 - Other pulmonary embolism without acute cor pulmonale Status: Acute Assessment and Plan: * See plans below for #2 and 3. * Suspect pt developed clots secondary to Acute orthopedic injuries. * Pt is a DNR. * She is on a heparin drip. * Not a likely candidate for thrombectomy as her ECHO shows no right heart strain, despite her CTA suggesting. * Pt's condition is overall guarded. * Will attempt to place on Eliquis in the next few days. * Check BLE venous doppler. * 02/20/23: Venous doppler negative for any DVT in BLE. Will order Eliquis to be initial dosed tomorrow. Currently remains on Heparin drip with correlating PTT's. (3) Chest pain: Code(s): R07.9 - Chest pain, unspecified Status: Acute Assessment and Plan: * EKG is unchanged from previous, showing left bundle-branch block. * Troponins are elevated and have trended upward from 0.223 to 0.407 * Cardiology consult placed * CTA PE protocol ordered * Echo ordered * Telemetry * Monitor vital signs. * 02/19/23: ECHO performed last evening with moderately reduced LVSF w/EF of 35- 40%. There is also grade 3 diastolic dysfunction, and moderate pulmonary HTN. CTA PE protocol was performed last evening and pt was found to have bilateral PE's with large clot burden and evidence of Right heart strain, although there was no heart strain visible on ECHO. Cardiology continuing to follow along with medicine. Lasix 20 mg ordered today for concern of peripheral edema. * 02/20/23: Pt tolerated Lasix 20 mg IVP very well yesterday, so 40 mg is given again today. She had overall improvement in her peripheral edema and she did not have any acute kidney injury. Will re-evaluate status in AM. We now know that the CP was due to her PE's. She has no acut
--- NOTE | 2023-02-20 11:07 | PM.IMPN ---
Progress Note: A&P Assessment and Plan (1) Head injury: Qualifiers: Encounter type: initial encounter Qualified Code(s): S09.90XA - Unspecified injury of head, initial encounter Code(s): S09.90XA - Unspecified injury of head, initial encounter Status: Acute Assessment and Plan: CT spine showed questionable acute compression/impaction fracture deformity at the anterior inferior aspect of the C6 vertebral body, versus possibly chronic loss of height and chronic irregularity. Consider MR to assess for acute marrow edema. Reversal of the normal cervical lordosis, with minimal grade 1 anterolisthesis of C4 over C5, and of C5 over C6. Degenerative spondylosis,as above. MRI showed acute/subacute compression fractures of C6, C7, and T1 with less than 1/5 loss of height. neurosurgery ordered cervical collar/[place] J which she should wear at all times except when eating if this makes it difficult for her to swallow. Will f/u outpatient in 4 weeks. Imaging should be repeated prior to next NSY appointment. Date of discharge, 02/17/23: Same instructions apply for discharge at this time. Follow up with Neuro in 4 weeks. Patient did not discharge secondary to her chest today. Neurological symptoms today are increased lethargy. No focal findings. 02/19/23: Pt with increased lethargy today. She responds to stimuli, however is very slow to initiate speech and does not answer all questions. 02/20/23: Pt improved drastically today, now spontaneously alert, oriented x3 and cooperative without any acute distress. Initiates conversation and interaction. (2) Pulmonary embolism: Qualifiers: Pulmonary embolism type: unspecified Chronicity: acute Acute cor pulmonale presence: with acute cor pulmonale Qualified Code(s): I26.09 - Other pulmonary embolism with acute cor pulmonale Code(s): I26.99 - Other pulmonary embolism without acute cor pulmonale Status: Acute Assessment and Plan: See plans below for #2 and 3. Suspect pt developed clots secondary to Acute orthopedic injuries. Pt is a DNR. She is on a heparin drip. Not a likely candidate for thrombectomy as her ECHO shows no right heart strain, despite her CTA suggesting. Pt's condition is overall guarded. Will attempt to place on Eliquis in the next few days. Check BLE venous doppler. 02/20/23: Venous doppler negative for any DVT in BLE. Will order Eliquis to be initial dosed tomorrow. Currently remains on Heparin drip with correlating PTT's. (3) Chest pain: Code(s): R07.9 - Chest pain, unspecified Status: Acute Assessment and Plan: EKG is unchanged from previous, showing left bundle-branch block. 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 02/19/23: ECHO performed last evening with moderately reduced LVSF w/EF of 35-40%. There is also grade 3 diastolic dysfunction, and moderate pulmonary HTN. CTA PE protocol was performed last evening and pt was found to have bilateral PE's with large clot burden and evidence of Right heart strain, although there was no heart strain visible on ECHO. Cardiology continuing to follow along with medicine. Lasix 20 mg ordered today for concern of peripheral edema. 02/20/23: Pt tolerated Lasix 20 mg IVP very well yesterday, so 40 mg is given again today. She had overall improvement in her peripheral edema and she did not have any acute kidney injury. Will re-evaluate status in AM. We now know that the CP was due to her PE's. She has no acute CP complaint. (4) Hypoxic: Code(s): R09.02 - Hypoxemia Status: Acute Assessment and Plan: Patient requiring supplemental oxygenation this a.m. when oxygen saturations dropped into the 80s. Patient's current oxygenation stable at 1 L per nasal cannula. CTA PE protocol ordered Continue to monitor vital signs. 02/19/23: Se
[2023-02-20 11:25] LABS: Glucose Point of Care 270 mg/dl (65-105)
[2023-02-20] MEDS: FUROSEMIDE INJ 40 MG/4 ML VIAL IV PUSH (11:37)
[2023-02-20] MEDS: cefTRIAXone 2 GM/NS 100 ML 2 GM/100 ML BAG IVPB (11:37)
[2023-02-20] MEDS: INSULIN ASPART (*BKC) 100 UNITS/ML SUB-Q ×3 (11:38→21:36)
[2023-02-20 12:21] LABS: Partial Thromboplastin Time 34.9 SECONDS (22.3-36.8)
[2023-02-20] MEDS: HEPARIN SODIUM 5,000 UNITS/ML VIAL 5500 UNITS IV PUSH (12:41)
[2023-02-20] MEDS: HEPARIN SOD/D5W 100 UNITS/ML 25,000 UNITS/250 ML BAG 12 UNITS IV CONT (16:13)
[2023-02-20 17:04] LABS: Glucose Point of Care 250 mg/dl (65-105)
[2023-02-20 19:48] LABS: Partial Thromboplastin Time > 200.0 SECONDS (22.3-36.8)
[2023-02-20 20:38] LABS: Glucose Point of Care 255 mg/dl (65-105)
[2023-02-20] MEDS: GABAPENTIN 100 MG CAPSULE PO (21:36)
[2023-02-20] MEDS: INSULIN GLARGINE (*BKC) 100 UNITS/ML 34 UNITS SUB-Q (21:38)
[2023-02-20] MEDS: traMADol HCL (*CRX) 50 MG TABLET PO (21:46)
[2023-02-21] VITALS: PULSE 82
[2023-02-21] MEDS: ACETAMINOPHEN 325 MG TABLET 650 MG PO (02:59)
[2023-02-21 03:33] LABS: Partial Thromboplastin Time 70.6 SECONDS (22.3-36.8)
[2023-02-21 04:00] VITALS: PULSE 79
[2023-02-21] MEDS: CENTRAL LINE FLUSH 10 ML IV PUSH (05:03)
[2023-02-21] MEDS: traMADol HCL (*CRX) 50 MG TABLET PO (05:03)
[2023-02-21] MEDS: LEVOTHYROXINE SODIUM 75 MCG TABLET PO (05:03)
[2023-02-21] MEDS: HEPARIN SODIUM 5,000 UNITS/ML VIAL 2500 UNITS IV PUSH (05:04)
[2023-02-21 05:18] VITALS: BP 146/50; PULSE 95; RESP 16; TEMP 36.4; O2SAT 95
[2023-02-21 07:28] LABS: Glucose Point of Care 114 mg/dl (65-105)
[2023-02-21 08:00] VITALS: PULSE 75; O2SAT 95
[2023-02-21 08:05] LABS: Basophils Percent Auto 0.4 % (0.2-1.2); Eosinophils Absolute Auto 0.6 K/mm3 (0-0.3); Eosinophils Percent Auto 6.5 % (0-4.4); Hematocrit 29.7 % (37.0-47.0); Hemoglobin 9.1 g/dL (12.0-15.0); Immature Granulocyte Absolute 0.12 K/mm3 (0.00-0.031); Immature Granulocyte Percent A 1.2 % (0-0.5); Lymphocytes Absolute Auto 1.77 K/mm3 (0.9-3.2); Lymphocytes Percent Auto 18.2 % (18.3-44.2); Mean Corpuscular HGB Conc 30.6 g/dl (32-36); Mean Corpuscular Hemoglobin 29.2 pg (26-34); Mean Corpuscular Volume 95.2 fl (80-100); Mean Platelet Volume 10.2 fl (7.4-10.4); Monocytes Absolute Auto 0.7 K/mm3 (0.1-0.6); Monocytes Percent Auto 7.6 % (2.6-8.5); Neutrophils Absolute Auto 6.4 K/mm3 (1.3-6.7); Neutrophils Percent Auto 66.1 % (45.5-73.1); Platelet Count Result 143 k/mm3 (150-375); Red Blood Count 3.12 M/mm3 (4.2-5.4); Red Cell Distribution Width 14.4 % (11.5-14.5); White Blood Count 9.7 K/mm3 (4.5-10.0)
[2023-02-21 08:14] LABS: Alanine Aminotransferase 66 U/L (6-35); Albumin Level 2.7 g/dL (3.5-5.1); Alkaline Phosphatase 132 U/L (38-126); Anion Gap 2 mmol/L (8-16); Aspartate Amino Transferase 53 U/L (14-36); Bilirubin,Total 0.3 mg/dL (0.2-1.3); Blood Urea Nitrogen 39 mg/dL (7-17); Calcium 8.1 mg/dL (8.4-10.2); Carbon Dioxide 31 mmol/L (22-30); Chloride 99 mmol/L (98-107); Estimated CRCL calculation 27 ml/min; Estimated Glomerular Filt Rate 33; Glucose 111 mg/dL (65-110); Sodium 132 mmol/L (137-145)
[2023-02-21] MEDS: APIXABAN 5 MG TABLET 10 MG PO (08:26)
[2023-02-21 08:27] VITALS: PULSE 74
[2023-02-21] MEDS: MIRABEGRON 50 MG ER TABLET PO (08:27)
[2023-02-21] MEDS: METOPROLOL SUCCINATE EXT REL 25 MG TABCR PO (08:27)
[2023-02-21] MEDS: MONTELUKAST SODIUM 10 MG TABLET PO (08:27)
[2023-02-21] MEDS: EMPAGLIFLOZIN 10 MG TABLET PO (08:27)
[2023-02-21] MEDS: CHOLECALCIFEROL 1,000 UNITS TABLET 1000 UNITS PO (08:27)
[2023-02-21] MEDS: ATORVASTATIN 40 MG TABLET 80 MG PO (08:27)
[2023-02-21] MEDS: levETIRAcetam 500 MG TABLET PO (08:27)
[2023-02-21] MEDS: SACUBITRIL/VALSARTAN 24-26 MG TABLET 1 TAB PO (08:28)
[2023-02-21] MEDS: HYDROcodone/acetaminophen (*CRX) 5-325 MG TABLET 1 TAB PO ×2 (08:28→13:01)
[2023-02-21] MEDS: VENLAFAXINE HCL XR 75 MG CAP.ER.24H PO (08:28)
[2023-02-21 11:27] LABS: Glucose Point of Care 205 mg/dl (65-105)
--- NOTE | 2023-02-21 11:37 | PM.DS ---
DS: Admitting Diagnosis Discharge Date 02/21/23 Admitting Diagnosis Accidental fall Cervical and thoracic spine fracture Closed head injury Humerus fracture DM2 UTI DS: Discharge Diagnosis Discharge Diagnosis (1) Head injury: Qualifiers: Encounter type: initial encounter Qualified Code(s): S09.90XA - Unspecified injury of head, initial encounter Code(s): S09.90XA - Unspecified injury of head, initial encounter Status: Acute Assessment and Plan: CT spine showed questionable acute compression/impaction fracture deformity at the anterior inferior aspect of the C6 vertebral body, versus possibly chronic loss of height and chronic irregularity. Consider MR to assess for acute marrow edema. Reversal of the normal cervical lordosis, with minimal grade 1 anterolisthesis of C4 over C5, and of C5 over C6. Degenerative spondylosis,as above. MRI showed acute/subacute compression fractures of C6, C7, and T1 with less than 1/5 loss of height. neurosurgery ordered cervical collar/[place] J which she should wear at all times except when eating if this makes it difficult for her to swallow. Will f/u outpatient in 4 weeks. Imaging should be repeated prior to next NSY appointment. Date of discharge, 02/17/23: Same instructions apply for discharge at this time. Follow up with Neuro in 4 weeks. Patient did not discharge secondary to her chest today. Neurological symptoms today are increased lethargy. No focal findings. 02/19/23: Pt with increased lethargy today. She responds to stimuli, however is very slow to initiate speech and does not answer all questions. 02/20/23: Pt improved drastically today, now spontaneously alert, oriented x3 and cooperative without any acute distress. Initiates conversation and interaction. 02/21/23, Date of discharge: Pt's level of mental status remains alert and interactive, cooperative and there are no s/s of acute distress or AMS. She has returned to her baseline. Follow up with Neuro 4 weeks from admission for re-evaluation of spinal fractures. Pt to wear [place] J collar at all times except when eating to provide spinal stability. (2) Pulmonary embolism: Qualifiers: Pulmonary embolism type: unspecified Chronicity: acute Acute cor pulmonale presence: with acute cor pulmonale Qualified Code(s): I26.09 - Other pulmonary embolism with acute cor pulmonale Code(s): I26.99 - Other pulmonary embolism without acute cor pulmonale Status: Acute Assessment and Plan: See plans below for #2 and 3. Suspect pt developed clots secondary to Acute orthopedic injuries. Pt is a DNR. She is on a heparin drip. Not a likely candidate for thrombectomy as her ECHO shows no right heart strain, despite her CTA suggesting. Pt's condition is overall guarded. Will attempt to place on Eliquis in the next few days. Check BLE venous doppler. 02/20/23: Venous doppler negative for any DVT in BLE. Will order Eliquis to be initial dosed tomorrow. Currently remains on Heparin drip with correlating PTT's. 02/21/23, Date of discharge: Pt has been transitioned to Eliquis 10 mg po BID for 7 days with today being day #1 of treatment. She will then drop from 10 mg BID to 5 mg BID thereafter. No signs of acute respiratory distress noted. Suspect the development of blood clots was from one of her Orthopedic injuries. Venous doppler BLE was without any evidence of blood clot. (3) Chest pain: Code(s): R07.9 - Chest pain, unspecified Status: Acute Assessment and Plan: EKG is unchanged from previous, showing left bundle-branch block. 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 02/19/23: ECHO performed last evening with moderately reduced LVSF w/EF of 35-40%. There is also grade 3 diastolic dysfunction, and moderate pulmonary HTN. CTA PE protocol was performed last
[2023-02-21] MEDS: cefTRIAXone 2 GM/NS 100 ML 2 GM/100 ML BAG IVPB (12:20)
[2023-02-21] MEDS: INSULIN ASPART (*BKC) 100 UNITS/ML SUB-Q (12:26)
[2023-02-21 18:42] LABS: Levetiracetam Keppra 23.7 mcg/mL (6.0-46.0)
--- NOTE | 2023-07-22 08:34 | PC.NURSE ---
Blood cx are negative.
== END 2023-02-21 14:18 | DRG 551 ==
LOC: ANHED 21:27 → ANH3MEDSUR 22:07
PROVIDERS: Emergency Medicine; Internal Medicine; Nurse Practitioner; Physician Assistant; Admitting Provider Internal Medicine; Emergency Provider Emergency Medicine; PCP Internal Medicine; Visit Provider Nurse Practitioner Adult Health
DX: S12.500A Unspecified displaced fracture of sixth cervical vertebra, initial encounter for closed fracture (principal); I26.99 Other pulmonary embolism without acute cor pulmonale; S22.010A Wedge compression fracture of first thoracic vertebra, initial encounter for closed fracture; N39.0 Urinary tract infection, site not specified; I42.9 Cardiomyopathy, unspecified; I50.22 Chronic systolic (congestive) heart failure; S12.600A Unspecified displaced fracture of seventh cervical vertebra, initial encounter for closed fracture; S01.01XA Laceration without foreign body of scalp, initial encounter; B96.20 Unspecified Escherichia coli [E. coli] as the cause of diseases classified elsewhere; W18.39XA Other fall on same level, initial encounter; R55 Syncope and collapse; E78.5 Hyperlipidemia, unspecified; E03.9 Hypothyroidism, unspecified; E11.42 Type 2 diabetes mellitus with diabetic polyneuropathy; N32.81 Overactive bladder; N39.41 Urge incontinence; E11.22 Type 2 diabetes mellitus with diabetic chronic kidney disease; N18.30 Chronic kidney disease, stage 3 unspecified; R41.82 Altered mental status, unspecified; R09.02 Hypoxemia; M25.571 Pain in right ankle and joints of right foot; S42.211G Unspecified displaced fracture of surgical neck of right humerus, subsequent encounter for fracture with delayed healing; S42.251G Displaced fracture of greater tuberosity of right humerus, subsequent encounter for fracture with delayed healing; I11.0 Hypertensive heart disease with heart failure; R33.9 Retention of urine, unspecified; Z66 Do not resuscitate; Z86.73 Personal history of transient ischemic attack (TIA), and cerebral infarction without residual deficits; Z96.1 Presence of intraocular lens; Z98.42 Cataract extraction status, left eye; Z98.41 Cataract extraction status, right eye; Z87.891 Personal history of nicotine dependence
CPT/HCPCS: 12001; 36415; 36569; 70450; 71045; 71275; 72125; 72141; 73502; 73562; 73610; 80048; 80053; 80069; 80177; 81001; 82948; 83605; 83735; 84145; 84484; 85025; 85027; 85610; 85730; 87040; 87077; 87086; 87186; 90471; 90715; 93005; 93306; 93970; 96361; 96365; 96366; 96375; 96376; 97110; 97162; 97165; 97530; 97535; 99285; A9270; C1751; G0378; J0696; J1644; J1815; J1940; J2270; J2405; J7030; Q9967

== ENCOUNTER 2023-02-21 15:17 | Inpatient (IN) | payer MEDICARE, SELFPAY ==
[2023-02-21 15:20] VITALS: BP 103/49; PULSE 80; RESP 18; TEMP 36.4; O2SAT 92
[2023-02-21 15:24] VITALS: BMI 34.1
[2023-02-21 16:03] VITALS: BP 103/49; PULSE 80; RESP 18; TEMP 36.4; O2SAT 92
[2023-02-21 17:31] LABS: Glucose Point of Care 162 mg/dl (65-105)
[2023-02-21] MEDS: SACUBITRIL/VALSARTAN 24-26 MG TABLET 1 TAB PO (17:47)
[2023-02-21] MEDS: levETIRAcetam 500 MG TABLET PO (17:47)
[2023-02-21 20:00] VITALS: PULSE 80; RESP 18; O2SAT 92
[2023-02-21] MEDS: traMADol HCL (*CRX) 50 MG TABLET PO (21:05)
[2023-02-21] MEDS: GABAPENTIN 100 MG CAPSULE PO (21:05)
[2023-02-21] MEDS: INSULIN HUMAN LISPRO (*BKC) 1,000 UNITS/10 ML VIAL SUB-Q (21:06)
[2023-02-21 21:10] LABS: Glucose Point of Care 220 mg/dl (65-105)
[2023-02-22] VITALS: BP 102/55; PULSE 88; RESP 16; TEMP 36; O2SAT 97
[2023-02-22 05:06] VITALS: O2SAT 94
[2023-02-22] MEDS: LEVOTHYROXINE SODIUM 75 MCG TABLET PO (05:49)
[2023-02-22 08:00] VITALS: BP 120/62; PULSE 88; RESP 20; TEMP 36.1; O2SAT 94
[2023-02-22 08:37] LABS: Glucose Point of Care 134 mg/dl (65-105)
--- NOTE | 2023-02-22 08:56 | PM.IMHP ---
H&P: HPI History of Present Illness Date/Time: 02/22/23 08:56 Chief Complaint: Rehab Narrative: This is an 83 year old female who presented to [facility] for rehab on 02/21/23. She was at [facility] and was admitted on 02/12/23 after sustaining a fall after being lightheaded. CT of her cervical spine on 02/12/23 showed a questionable acute compression /impaction fracture deformity at the anterior inferior aspect of the C6 vertebral body, verses possibly chronic loss of height and chronic irregularity, reversal of normal cervical lordosis with minimal grade 1 anterolisthesis of C4 over C5, and of C5 over C6. An MRI study was also performed which shown 2 mm anterolisthesis of C4 on C5, kyphosis of the cervical spine, compression fractures of the inferior endplates of C6, C7, and T1 with less than 1/5 loss of height and edema like marrow signal intensity, There was also moderate decreased disc height at C3-C4 and C5-C6 and mildly decreased disc height at C6-C7, C4-C5, C5-C6, C6-C7 all show bulging disc with severe facet joint osteoarthritis. she was placed in a [place] J collar that she needs to wear at all times. She was also found to have a right greater tuberosity of the proximal right humerus. She was placed a sling. On 02/17/2023 patient was going to come to [facility] [place] for additional strength training and rehabilitation however she started having increased shortness of breath chest pain and had a CTA of the chest which showed acute pulmonary emboli in the distal bilateral main pulmonary arteries extending into the segmental and subsegmental branches of all lobes, Large clot burden, with evidence of right heart strain, small right pleural effusion, a cute comminuted proximal right humeral fracture. Echo was performed which showed moderately reduced LV systolic function with an ejection fraction of 35-40%, grade 3 diastolic dysfunction, moderate pulmonary hypertension , no evidence of right heart strain. she was placed on Eliquis. She also had troponin levels that were bumped with the 1st being 0.022, 0.2-3, 0.407. EKG showed sinus rhythm with left bundle branch block. She was given Lasix for the pulmonary hypertension. Prognosis was guarded at that time, however she started to improve and was medically stable and ready for discharge to a nursing rehab [place] for swing bed program. On examination today patient is alert oriented x3, lying in the bed. She has the [place] J collar in place at this time. She denies any fever, chills, nausea, vomiting, diarrhea, shortness of breath, chest pain. She does state that she has a little abdominal pain in the epigastric area. Vital signs have been stable, she is currently on room air, she is afebrile. Labs yesterday revealed a hemoglobin of 9.1, hematocrit 29.7, sodium 132, bicarb 31, BUN 39, creatinine 1.5, blood sugars ranging 114-205, calcium 8.1, AST 53, ALT 66, alk-phos 132, magnesium 2.0. she denies any new complaints at this time. Review of Systems Review of Systems: All systems reviewed & are unremarkable except as noted in HPI and below Constitutional: Constitutional: Reports as per HPI and Reports no additional constitutional complaints Eyes: Eyes: Reports as per HPI and Reports no additional eye complaints ENT: Reports system reviewed and no additional complaints, except as documented and Reports as per HPI Cardiovascular: Cardiovascular: Reports as per HPI and Reports no additional cardiovascular complaints Respiratory: Respiratory: Reports as per HPI and Reports no additional respiratory complaints Gastrointestinal: Gastrointestinal: Reports as per HPI and Reports no additional gastrointestinal complaints Genitourinary: Genitourinary: Reports no additional female genitourinary complaints and Reports as per HPI Musculoskeletal: Musculoskeletal: Reports no additional musculoskeletal complaints and Reports as per HPI Integumentary/Breasts: Skin/Breas
[2023-02-22] MEDS: VENLAFAXINE HCL XR 75 MG CAP.ER.24H PO (09:37)
[2023-02-22] MEDS: CHOLECALCIFEROL 1,000 UNITS TABLET 1000 UNITS PO (09:38)
[2023-02-22] MEDS: SACUBITRIL/VALSARTAN 24-26 MG TABLET 1 TAB PO ×2 (09:38→16:39)
[2023-02-22] MEDS: MIRABEGRON 25 MG ER TABLET 50 MG PO (09:38)
[2023-02-22] MEDS: ATORVASTATIN 40 MG TABLET 80 MG PO (09:39)
[2023-02-22] MEDS: SPIRONOLACTONE 25 MG TABLET PO (09:39)
[2023-02-22] MEDS: levETIRAcetam 500 MG TABLET PO ×2 (09:39→16:38)
[2023-02-22] MEDS: traMADol HCL (*CRX) 50 MG TABLET PO ×2 (09:40→20:15)
[2023-02-22] MEDS: MONTELUKAST SODIUM 10 MG TABLET PO (09:40)
[2023-02-22 09:41] VITALS: PULSE 84
[2023-02-22] MEDS: METOPROLOL SUCCINATE EXT REL 25 MG TABCR PO (09:41)
[2023-02-22] MEDS: EMPAGLIFLOZIN 10 MG TABLET PO (09:44)
[2023-02-22] MEDS: INSULIN GLARGINE (*BKC) 1,000 UNITS/10 ML VIAL 34 UNITS SUB-Q (09:45)
[2023-02-22] MEDS: INSULIN HUMAN LISPRO (*BKC) 1,000 UNITS/10 ML VIAL SUB-Q (12:07)
[2023-02-22 13:42] LABS: Glucose Point of Care 223 mg/dl (65-105)
[2023-02-22 15:34] VITALS: BP 116/56; PULSE 80; RESP 20; TEMP 36.2; O2SAT 92
--- NOTE | 2023-02-22 15:39 | PC.NURSE ---
Nurses Notes: Resting in bed, right arm elevated, sleepy but able to appropriately answer questions but falls back asleep.
--- NOTE | 2023-02-22 16:36 | PC.NURSE ---
anoop miller rod mill aware that she has 4.3cm abrasion up on top of l shoulder. from either [place] j collar or sling for r arm or both. she also claims she has an ear ache in the l side.
[2023-02-22 16:42] LABS: Glucose Point of Care 123 mg/dl (65-105)
[2023-02-22 20:00] VITALS: PULSE 80; RESP 20; O2SAT 92
[2023-02-22] MEDS: GABAPENTIN 100 MG CAPSULE PO (20:15)
[2023-02-22 20:20] LABS: Glucose Point of Care 162 mg/dl (65-105)
[2023-02-23] VITALS: BP 102/50; PULSE 84; RESP 16; TEMP 36.2; O2SAT 94
[2023-02-23] MEDS: LEVOTHYROXINE SODIUM 75 MCG TABLET PO (06:02)
[2023-02-23 08:00] VITALS: BP 108/64; PULSE 80; RESP 18; TEMP 36.6; O2SAT 94
[2023-02-23 08:23] LABS: Glucose Point of Care 102 mg/dl (65-105)
[2023-02-23] MEDS: INSULIN GLARGINE (*BKC) 1,000 UNITS/10 ML VIAL 34 UNITS SUB-Q (09:06)
[2023-02-23] MEDS: VENLAFAXINE HCL XR 75 MG CAP.ER.24H PO (09:07)
[2023-02-23] MEDS: MIRABEGRON 25 MG ER TABLET 50 MG PO (09:07)
[2023-02-23] MEDS: SACUBITRIL/VALSARTAN 24-26 MG TABLET 1 TAB PO ×2 (09:07→16:58)
[2023-02-23 09:08] VITALS: PULSE 70
[2023-02-23] MEDS: METOPROLOL SUCCINATE EXT REL 25 MG TABCR PO (09:08)
[2023-02-23] MEDS: SPIRONOLACTONE 25 MG TABLET PO (09:08)
[2023-02-23] MEDS: levETIRAcetam 500 MG TABLET PO ×2 (09:08→16:58)
[2023-02-23] MEDS: APIXABAN 2.5 MG TABLET 10 MG PO ×2 (09:08→21:07)
[2023-02-23] MEDS: MONTELUKAST SODIUM 10 MG TABLET PO (09:08)
[2023-02-23] MEDS: EMPAGLIFLOZIN 10 MG TABLET PO (09:09)
[2023-02-23] MEDS: ATORVASTATIN 40 MG TABLET 80 MG PO (09:09)
[2023-02-23] MEDS: CHOLECALCIFEROL 1,000 UNITS TABLET 1000 UNITS PO (09:09)
[2023-02-23 11:46] LABS: Glucose Point of Care 173 mg/dl (65-105)
[2023-02-23] MEDS: DOCUSATE SODIUM 100 MG CAPSULE PO ×2 (11:58→21:07)
[2023-02-23 16:00] VITALS: BP 112/74; PULSE 80; RESP 18; TEMP 36.6; O2SAT 96
[2023-02-23 17:04] LABS: Glucose Point of Care 137 mg/dl (65-105)
--- NOTE | 2023-02-23 19:11 | PC.NURSE ---
drg to double lumen in l upper arm changed. insertion site is clean. she does have alot of purple/black bruising in cookie.
[2023-02-23 21:02] LABS: Glucose Point of Care 192 mg/dl (65-105)
[2023-02-23] MEDS: GABAPENTIN 100 MG CAPSULE PO (21:07)
[2023-02-23 23:42] VITALS: BP 115/60; PULSE 87; RESP 14; TEMP 36.4; O2SAT 91
[2023-02-24] MEDS: LEVOTHYROXINE SODIUM 75 MCG TABLET PO (06:24)
[2023-02-24 07:40] VITALS: BP 113/53; PULSE 79; RESP 18; TEMP 36.1; O2SAT 91
[2023-02-24 08:04] LABS: Glucose Point of Care 115 mg/dl (65-105)
[2023-02-24] MEDS: MIRABEGRON 25 MG ER TABLET 50 MG PO (09:55)
[2023-02-24] MEDS: CHOLECALCIFEROL 1,000 UNITS TABLET 1000 UNITS PO (09:55)
[2023-02-24] MEDS: MONTELUKAST SODIUM 10 MG TABLET PO (09:55)
[2023-02-24] MEDS: SACUBITRIL/VALSARTAN 24-26 MG TABLET 1 TAB PO ×2 (09:55→16:59)
[2023-02-24 09:56] VITALS: PULSE 79
[2023-02-24] MEDS: APIXABAN 2.5 MG TABLET 10 MG PO ×2 (09:56→20:39)
[2023-02-24] MEDS: METOPROLOL SUCCINATE EXT REL 25 MG TABCR PO (09:56)
[2023-02-24] MEDS: levETIRAcetam 500 MG TABLET PO ×2 (09:56→16:59)
[2023-02-24] MEDS: EMPAGLIFLOZIN 10 MG TABLET PO (09:56)
[2023-02-24] MEDS: VENLAFAXINE HCL XR 75 MG CAP.ER.24H PO (09:56)
[2023-02-24] MEDS: ATORVASTATIN 40 MG TABLET 80 MG PO (09:57)
[2023-02-24] MEDS: SPIRONOLACTONE 25 MG TABLET PO (09:57)
[2023-02-24] MEDS: DOCUSATE SODIUM 100 MG CAPSULE PO ×2 (09:57→20:39)
[2023-02-24] MEDS: HEPARIN SODIUM LOCK FLUSH 500 UNITS/5 ML SYRINGE IV PUSH (09:59)
[2023-02-24] MEDS: traMADol HCL (*CRX) 50 MG TABLET PO ×2 (10:01→20:39)
[2023-02-24 11:43] LABS: Glucose Point of Care 169 mg/dl (65-105)
[2023-02-24 16:40] VITALS: BP 122/53; PULSE 81; RESP 18; TEMP 35.9; O2SAT 96
[2023-02-24 17:04] LABS: Glucose Point of Care 182 mg/dl (65-105)
[2023-02-24] MEDS: INSULIN HUMAN LISPRO (*BKC) 1,000 UNITS/10 ML VIAL SUB-Q (20:38)
[2023-02-24 20:39] LABS: Glucose Point of Care 218 mg/dl (65-105)
[2023-02-24] MEDS: GABAPENTIN 100 MG CAPSULE PO (20:39)
[2023-02-24 23:58] VITALS: BP 121/56; PULSE 72; RESP 16; TEMP 36.3; O2SAT 95
[2023-02-25] MEDS: LEVOTHYROXINE SODIUM 75 MCG TABLET PO (05:51)
[2023-02-25 07:35] VITALS: BP 142/55; PULSE 73; RESP 18; TEMP 35.7; O2SAT 94
[2023-02-25 08:02] LABS: Glucose Point of Care 113 mg/dl (65-105)
[2023-02-25] MEDS: HEPARIN SODIUM LOCK FLUSH 500 UNITS/5 ML SYRINGE IV PUSH (09:21)
[2023-02-25] MEDS: MIRABEGRON 25 MG ER TABLET 50 MG PO (09:22)
[2023-02-25] MEDS: levETIRAcetam 500 MG TABLET PO ×2 (09:22→17:44)
[2023-02-25] MEDS: APIXABAN 2.5 MG TABLET 10 MG PO ×2 (09:22→21:40)
[2023-02-25 09:23] VITALS: PULSE 73
[2023-02-25] MEDS: METOPROLOL SUCCINATE EXT REL 25 MG TABCR PO (09:23)
[2023-02-25] MEDS: SPIRONOLACTONE 25 MG TABLET PO (09:23)
[2023-02-25] MEDS: SACUBITRIL/VALSARTAN 24-26 MG TABLET 1 TAB PO ×2 (09:23→17:44)
[2023-02-25] MEDS: CHOLECALCIFEROL 1,000 UNITS TABLET 1000 UNITS PO (09:23)
[2023-02-25] MEDS: ATORVASTATIN 40 MG TABLET 80 MG PO (09:23)
[2023-02-25] MEDS: EMPAGLIFLOZIN 10 MG TABLET PO (09:23)
[2023-02-25] MEDS: MONTELUKAST SODIUM 10 MG TABLET PO (09:23)
[2023-02-25] MEDS: DOCUSATE SODIUM 100 MG CAPSULE PO ×2 (09:24→22:06)
[2023-02-25] MEDS: VENLAFAXINE HCL XR 75 MG CAP.ER.24H PO (09:24)
[2023-02-25 12:10] LABS: Glucose Point of Care 214 mg/dl (65-105)
[2023-02-25] MEDS: INSULIN HUMAN LISPRO (*BKC) 1,000 UNITS/10 ML VIAL SUB-Q ×2 (12:44→22:16)
[2023-02-25 16:30] VITALS: BP 125/61; PULSE 65; RESP 18; TEMP 36.1; O2SAT 94
[2023-02-25 17:14] LABS: Glucose Point of Care 153 mg/dl (65-105)
[2023-02-25] MEDS: traMADol HCL (*CRX) 50 MG TABLET PO (22:06)
[2023-02-25] MEDS: GABAPENTIN 100 MG CAPSULE PO (22:07)
[2023-02-25 22:08] LABS: Glucose Point of Care 222 mg/dl (65-105)
[2023-02-25 23:40] VITALS: BP 118/55; PULSE 70; RESP 16; TEMP 35.9; O2SAT 93
[2023-02-26] MEDS: LEVOTHYROXINE SODIUM 75 MCG TABLET PO (05:51)
--- NOTE | 2023-02-26 06:55 | PC.NURSE ---
report to bret johnson
[2023-02-26 08:00] VITALS: BP 125/49; PULSE 65; RESP 16; TEMP 35.7; O2SAT 90
[2023-02-26 08:30] LABS: Glucose Point of Care 133 mg/dl (65-105)
[2023-02-26] MEDS: MIRABEGRON 25 MG ER TABLET 50 MG PO (09:28)
[2023-02-26] MEDS: SACUBITRIL/VALSARTAN 24-26 MG TABLET 1 TAB PO ×2 (09:28→17:09)
[2023-02-26] MEDS: DOCUSATE SODIUM 100 MG CAPSULE PO ×2 (09:28→21:17)
[2023-02-26] MEDS: VENLAFAXINE HCL XR 75 MG CAP.ER.24H PO (09:29)
[2023-02-26] MEDS: CHOLECALCIFEROL 1,000 UNITS TABLET 1000 UNITS PO (09:29)
[2023-02-26 09:30] VITALS: PULSE 74
[2023-02-26] MEDS: MONTELUKAST SODIUM 10 MG TABLET PO (09:30)
[2023-02-26] MEDS: METOPROLOL SUCCINATE EXT REL 25 MG TABCR PO (09:30)
[2023-02-26] MEDS: ATORVASTATIN 40 MG TABLET 80 MG PO (09:30)
[2023-02-26] MEDS: EMPAGLIFLOZIN 10 MG TABLET PO (09:31)
[2023-02-26] MEDS: levETIRAcetam 500 MG TABLET PO ×2 (09:31→17:08)
[2023-02-26] MEDS: SPIRONOLACTONE 25 MG TABLET PO (09:31)
[2023-02-26] MEDS: APIXABAN 2.5 MG TABLET 10 MG PO ×2 (09:32→21:17)
[2023-02-26] MEDS: HEPARIN SODIUM LOCK FLUSH 500 UNITS/5 ML SYRINGE IV PUSH (09:33)
[2023-02-26 11:46] LABS: Glucose Point of Care 201 mg/dl (65-105)
[2023-02-26] MEDS: INSULIN HUMAN LISPRO (*BKC) 1,000 UNITS/10 ML VIAL SUB-Q ×2 (12:02→21:18)
[2023-02-26 16:00] VITALS: BP 121/61; PULSE 65; RESP 16; TEMP 36.2; O2SAT 97
[2023-02-26 16:40] LABS: Glucose Point of Care 167 mg/dl (65-105)
[2023-02-26 20:00] VITALS: PULSE 65; RESP 16; O2SAT 97
[2023-02-26] MEDS: GABAPENTIN 100 MG CAPSULE PO (21:17)
[2023-02-26] MEDS: traMADol HCL (*CRX) 50 MG TABLET PO (21:17)
[2023-02-26 21:21] LABS: Glucose Point of Care 204 mg/dl (65-105)
[2023-02-26 23:47] VITALS: BP 127/46; PULSE 67; RESP 15; TEMP 36.1; O2SAT 95
--- NOTE | 2023-02-27 05:14 | PC.NURSE ---
Patient was in bed at the beginning of the shift. She remains alert/oriented X 4 with slow responses. She is here for Right humerus fracture and remains non-weight bearing with her sling in place. She also continues to wear the [place]-J Collar for the C6,C7 and T1 fractures. Patient uses 2 assist with the Chantal Stedy for transfers, with difficulty. Patient has a 16 [place] Hahn catheter, with yellow, clear urine draining by gravity. Patient is diabetic with accuchecks ACHS. Her HS was 204 which required 2 units of humulog insulin for sliding scale coverage. Patient has not received her scheduled 34 units of Glargine long acting insulin since 02/23/2023, as her 0800 accucheck has ranged from 102 to 115. However, patient has needed sliding scale coverage by HS, and sometimes before then. Patient's vitals are WNL, with the exception of temperature (97.0) and BP (127/46). JULI has slept well this evening.
[2023-02-27] MEDS: LEVOTHYROXINE SODIUM 75 MCG TABLET PO (05:49)
[2023-02-27 08:00] VITALS: BP 132/51; PULSE 70; RESP 16; TEMP 35.8; O2SAT 94
[2023-02-27 08:17] LABS: Glucose Point of Care 142 mg/dl (65-105)
--- NOTE | 2023-02-27 09:42 | P.PNIM_ITS ---
Progress Note: A&P Assessment and Plan (1) Weakness: Code(s): R53.1 - Weakness Status: Acute Assessment and Plan: 02/22/23: * Admit to [facility] swing bed program * Continue PT and OT for strength and rehabilitation after fractures. 02/27: No changes (2) Pulmonary embolism: Qualifiers: Pulmonary embolism type: unspecified Chronicity: acute Acute cor pulmonale presence: with acute cor pulmonale Qualified Code(s): I26.09 - Other pulmonary embolism with acute cor pulmonale Code(s): I26.99 - Other pulmonary embolism without acute cor pulmonale Status: Acute Assessment and Plan: 02/22/23: * Chest CTA on 02/18/23 revealed acute pulmonary emboli in the distal bilateral main pulmonary arteries extending into segmental and subsegmental branches of all lobes, large clot burden, with evidence of right heart strain. * Echo revealed moderately reduced LV systolic function with an EF of 35-40%, moderate pulmonary hypertension. Cardiology was consulted at that time and ruled out right heart strain. * Venous dopplers were performed and was negative for DVT. * PE likely due to her recent orthopedic injuries * Patient was started on Eliquis 10 mg BID for 7 days and then drop down to 5mg BID thereafter. (3) Hypertension: Code(s): I10 - Essential (primary) hypertension Status: Acute Assessment and Plan: 02/22/23: * B/P ranging 116/56-120/62 * Continue home medications (4) Atrial fibrillation: Code(s): I48.91 - Unspecified atrial fibrillation Status: Acute Assessment and Plan: 02/22/23: * Currently on Eliquis anticoagulation for her PE * Metoprolol 25 mg po daily restarted. 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 insulin use: with halfway use Diabetes mellitus complication status: with kidney complications Diabetes mellitus complication detail: with chronic kidney disease Chronic kidney disease stage: stage 3 (moderate) Chronic kidney disease stage 3 subtype: unspecified whether 3a or 3b Qualified Code(s): E11.22 - Type 2 diabetes mellitus with diabetic chronic kidney disease; N18.30 - Chronic kidney disease, stage 3 unspecified; Z79.4 - [facility] (current) use of insulin Code(s): E11.9 - Type 2 diabetes mellitus without complications Status: Chronic Assessment and Plan: 02/22/23: * BG ranging 123-162 * AC/HS accu checks * Lantus 34 units q am * Corrective low dose SSI ordered for HS * Corrective high dose SSI ordered with meals. * hypoglycemic protocol ordered. (6) Humerus fracture: Qualifiers: Encounter type: subsequent encounter Fracture type: closed Laterality: right Code(s): S42.309A - Unspecified fracture of shaft of humerus, unspecified arm, initial encounter for closed fracture Status: Acute Assessment and Plan: 02/22/23: * No surgical repair performed * Sling for stabilization and comfort * Continue pain control efforts * Continue PT and OT (7) Cervical compression fracture: Code(s): S12.9XXA - Fracture of neck, unspecified, initial encounter Status: Acute Assessment and Plan: 02/22/23: * see above HPI for details * Continue [place] J collar at all times except when eating. * She will need to follow up with neurosurgery in 4 weeks from original injury Time Spent With Patient Time with patient: 15 - 25 minutes Subjective Date/time seen: 02/27/23 12:42 Interval history: Patient is participating well with therapy. She will need a walke
--- NOTE | 2023-02-27 09:42 | PM.IMPN ---
Progress Note: A&P Assessment and Plan (1) Weakness: Code(s): R53.1 - Weakness Status: Acute Assessment and Plan: 02/22/23: Admit to [facility] bed program Continue PT and OT for strength and rehabilitation after fractures. 02/27: No changes (2) Pulmonary embolism: Qualifiers: Pulmonary embolism type: unspecified Chronicity: acute Acute cor pulmonale presence: with acute cor pulmonale Qualified Code(s): I26.09 - Other pulmonary embolism with acute cor pulmonale Code(s): I26.99 - Other pulmonary embolism without acute cor pulmonale Status: Acute Assessment and Plan: 02/22/23: Chest CTA on 02/18/23 revealed acute pulmonary emboli in the distal bilateral main pulmonary arteries extending into segmental and subsegmental branches of all lobes, large clot burden, with evidence of right heart strain. Echo revealed moderately reduced LV systolic function with an EF of 35-40%, moderate pulmonary hypertension. Cardiology was consulted at that time and ruled out right heart strain. Venous dopplers were performed and was negative for DVT. PE likely due to her recent orthopedic injuries Patient was started on Eliquis 10 mg BID for 7 days and then drop down to 5mg BID thereafter. (3) Hypertension: Code(s): I10 - Essential (primary) hypertension Status: Acute Assessment and Plan: 02/22/23: B/P ranging 116/56-120/62 Continue home medications (4) Atrial fibrillation: Code(s): I48.91 - Unspecified atrial fibrillation Status: Acute Assessment and Plan: 02/22/23: Currently on Eliquis anticoagulation for her PE Metoprolol 25 mg po daily restarted. 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: with snf use Diabetes mellitus complication status: with kidney complications Diabetes mellitus complication detail: with chronic kidney disease Chronic kidney disease stage: stage 3 (moderate) Chronic kidney disease stage 3 subtype: unspecified whether 3a or 3b Qualified Code(s): E11.22 - Type 2 diabetes mellitus with diabetic chronic kidney disease; N18.30 - Chronic kidney disease, stage 3 unspecified; Z79.4 - senior living (current) use of insulin Code(s): E11.9 - Type 2 diabetes mellitus without complications Status: Chronic Assessment and Plan: 02/22/23: BG ranging 123-162 AC/HS accu checks Lantus 34 units q am Corrective low dose SSI ordered for HS Corrective high dose SSI ordered with meals. hypoglycemic protocol ordered. (6) Humerus fracture: Qualifiers: Encounter type: subsequent encounter Fracture type: closed Laterality: right Code(s): S42.309A - Unspecified fracture of shaft of humerus, unspecified arm, initial encounter for closed fracture Status: Acute Assessment and Plan: 02/22/23: No surgical repair performed Sling for stabilization and comfort Continue pain control efforts Continue PT and OT (7) Cervical compression fracture: Code(s): S12.9XXA - Fracture of neck, unspecified, initial encounter Status: Acute Assessment and Plan: 02/22/23: see above HPI for details Continue [place] J collar at all times except when eating. She will need to follow up with neurosurgery in 4 weeks from original injury Time Spent With Patient Time with patient: 15 - 25 minutes Subjective Date/time seen: 02/27/23 12:42 Interval history: Patient is participating well with therapy. She will need a walker with an arm rest at discharge. Patient still requiring assist of two for transfers so she will benefit from additional skilled therapy services. PICC line was left in after discharge from acute care. We will discontinue today. Patient's Eliquis will decrease to 5 mg BID on 03/01. She is pending follow up with Ortho regarding right humerus fracture. Good use of sling, minimal pain, good distal pulse, motor and
[2023-02-27] MEDS: DOCUSATE SODIUM 100 MG CAPSULE PO ×2 (10:07→20:28)
[2023-02-27 10:08] VITALS: PULSE 86
[2023-02-27] MEDS: METOPROLOL SUCCINATE EXT REL 25 MG TABCR PO (10:08)
[2023-02-27] MEDS: VENLAFAXINE HCL XR 75 MG CAP.ER.24H PO (10:08)
[2023-02-27] MEDS: ATORVASTATIN 40 MG TABLET 80 MG PO (10:08)
[2023-02-27] MEDS: MIRABEGRON 25 MG ER TABLET 50 MG PO (10:08)
[2023-02-27] MEDS: SACUBITRIL/VALSARTAN 24-26 MG TABLET 1 TAB PO ×2 (10:08→17:48)
[2023-02-27] MEDS: CHOLECALCIFEROL 1,000 UNITS TABLET 1000 UNITS PO (10:08)
[2023-02-27] MEDS: EMPAGLIFLOZIN 10 MG TABLET PO (10:09)
[2023-02-27] MEDS: APIXABAN 2.5 MG TABLET 10 MG PO ×2 (10:09→20:27)
[2023-02-27] MEDS: MONTELUKAST SODIUM 10 MG TABLET PO (10:09)
[2023-02-27] MEDS: INSULIN GLARGINE (*BKC) 1,000 UNITS/10 ML VIAL 34 UNITS SUB-Q (10:09)
[2023-02-27] MEDS: levETIRAcetam 500 MG TABLET PO ×2 (10:09→17:48)
[2023-02-27] MEDS: SPIRONOLACTONE 25 MG TABLET PO (10:09)
[2023-02-27] MEDS: HEPARIN SODIUM LOCK FLUSH 500 UNITS/5 ML SYRINGE IV PUSH (10:10)
[2023-02-27 12:15] LABS: Glucose Point of Care 207 mg/dl (65-105)
[2023-02-27] MEDS: INSULIN HUMAN LISPRO (*BKC) 1,000 UNITS/10 ML VIAL SUB-Q (12:19)
[2023-02-27] MEDS: polyethylene glycoL 3350 17 GM POWD.PACK PO (15:15)
[2023-02-27 16:00] VITALS: BP 118/68; PULSE 66; RESP 18; TEMP 35.9; O2SAT 95
[2023-02-27 17:14] LABS: Glucose Point of Care 187 mg/dl (65-105)
[2023-02-27 17:30] VITALS: BP 113/53; PULSE 60; RESP 18; TEMP 35.8; O2SAT 96
[2023-02-27 20:00] VITALS: PULSE 60; RESP 18; O2SAT 96
[2023-02-27] MEDS: traMADol HCL (*CRX) 50 MG TABLET PO (20:28)
[2023-02-27] MEDS: GABAPENTIN 100 MG CAPSULE PO (20:28)
[2023-02-27 20:32] LABS: Glucose Point of Care 195 mg/dl (65-105)
[2023-02-28] VITALS: BP 116/40; PULSE 68; RESP 15; TEMP 35.9; O2SAT 97
[2023-02-28] MEDS: LEVOTHYROXINE SODIUM 75 MCG TABLET PO (05:37)
[2023-02-28 07:40] VITALS: BP 108/43; PULSE 64; RESP 16; TEMP 35.8; O2SAT 92
[2023-02-28 08:01] LABS: Glucose Point of Care 143 mg/dl (65-105)
[2023-02-28] MEDS: MIRABEGRON 25 MG ER TABLET 50 MG PO (09:23)
[2023-02-28] MEDS: INSULIN GLARGINE (*BKC) 1,000 UNITS/10 ML VIAL 34 UNITS SUB-Q (09:23)
[2023-02-28] MEDS: CHOLECALCIFEROL 1,000 UNITS TABLET 1000 UNITS PO (09:23)
[2023-02-28 09:24] VITALS: PULSE 64
[2023-02-28] MEDS: METOPROLOL SUCCINATE EXT REL 25 MG TABCR PO (09:24)
[2023-02-28] MEDS: ATORVASTATIN 40 MG TABLET 80 MG PO (09:24)
[2023-02-28] MEDS: DOCUSATE SODIUM 100 MG CAPSULE PO ×2 (09:24→21:28)
[2023-02-28] MEDS: SACUBITRIL/VALSARTAN 24-26 MG TABLET 1 TAB PO ×2 (09:24→17:55)
[2023-02-28] MEDS: levETIRAcetam 500 MG TABLET PO ×2 (09:24→17:55)
[2023-02-28] MEDS: VENLAFAXINE HCL XR 75 MG CAP.ER.24H PO (09:24)
[2023-02-28] MEDS: EMPAGLIFLOZIN 10 MG TABLET PO (09:25)
[2023-02-28] MEDS: SPIRONOLACTONE 25 MG TABLET PO (09:25)
[2023-02-28] MEDS: MONTELUKAST SODIUM 10 MG TABLET PO (09:25)
[2023-02-28] MEDS: APIXABAN 2.5 MG TABLET 10 MG PO ×2 (09:25→21:27)
[2023-02-28 12:11] LABS: Glucose Point of Care 226 mg/dl (65-105)
[2023-02-28] MEDS: INSULIN HUMAN LISPRO (*BKC) 1,000 UNITS/10 ML VIAL SUB-Q ×2 (14:08→21:30)
[2023-02-28 16:35] VITALS: BP 117/47; PULSE 70; RESP 16; TEMP 36.2; O2SAT 97
[2023-02-28 17:15] LABS: Glucose Point of Care 198 mg/dl (65-105)
[2023-02-28 20:25] VITALS: PULSE 66; RESP 16; O2SAT 96
[2023-02-28 21:25] LABS: Glucose Point of Care 208 mg/dl (65-105)
[2023-02-28] MEDS: traMADol HCL (*CRX) 50 MG TABLET PO (21:28)
[2023-02-28] MEDS: GABAPENTIN 100 MG CAPSULE PO (21:28)
--- NOTE | 2023-02-28 23:30 | PC.NURSE ---
Patient resting quietly in bed. [place] J collar on and sling on to right arm. Call light and belongings within reach.
[2023-03-01] VITALS: BP 127/47; PULSE 66; RESP 16; TEMP 35.8; O2SAT 96
--- NOTE | 2023-03-01 00:19 | PC.NURSE ---
Resting quietly with call light and belongings within reach.
--- NOTE | 2023-03-01 01:15 | PC.NURSE ---
Patient resting in bed, light snoring can be heard. Hahn cath patient and draining clear yellow urine. Call light and belongings within reach. [place] J collar on and sling in place on right arm.
--- NOTE | 2023-03-01 02:55 | PC.NURSE ---
Patient resting quietly. Call light and belongings within reach.
[2023-03-01] MEDS: LEVOTHYROXINE SODIUM 75 MCG TABLET PO (06:03)
[2023-03-01 07:35] VITALS: BP 121/55; PULSE 65; RESP 16; TEMP 35.6; O2SAT 95
[2023-03-01 08:06] LABS: Glucose Point of Care 127 mg/dl (65-105)
[2023-03-01 08:35] VITALS: PULSE 65; RESP 16; O2SAT 95
[2023-03-01] MEDS: INSULIN GLARGINE (*BKC) 1,000 UNITS/10 ML VIAL 34 UNITS SUB-Q (09:52)
[2023-03-01 09:53] VITALS: PULSE 65
[2023-03-01] MEDS: SACUBITRIL/VALSARTAN 24-26 MG TABLET 1 TAB PO ×2 (09:53→17:23)
[2023-03-01] MEDS: METOPROLOL SUCCINATE EXT REL 25 MG TABCR PO (09:53)
[2023-03-01] MEDS: VENLAFAXINE HCL XR 75 MG CAP.ER.24H PO (09:53)
[2023-03-01] MEDS: DOCUSATE SODIUM 100 MG CAPSULE PO ×2 (09:53→20:44)
[2023-03-01] MEDS: MIRABEGRON 25 MG ER TABLET 50 MG PO (09:53)
[2023-03-01] MEDS: CHOLECALCIFEROL 1,000 UNITS TABLET 1000 UNITS PO (09:53)
[2023-03-01] MEDS: ATORVASTATIN 40 MG TABLET 80 MG PO (09:53)
[2023-03-01] MEDS: SPIRONOLACTONE 25 MG TABLET PO (09:54)
[2023-03-01] MEDS: levETIRAcetam 500 MG TABLET PO ×2 (09:54→17:23)
[2023-03-01] MEDS: MONTELUKAST SODIUM 10 MG TABLET PO (09:54)
[2023-03-01] MEDS: APIXABAN 2.5 MG TABLET 5 MG PO ×2 (09:54→20:43)
[2023-03-01] MEDS: EMPAGLIFLOZIN 10 MG TABLET PO (09:54)
[2023-03-01 11:58] LABS: Glucose Point of Care 230 mg/dl (65-105)
[2023-03-01] MEDS: INSULIN HUMAN LISPRO (*BKC) 1,000 UNITS/10 ML VIAL SUB-Q (13:23)
[2023-03-01 16:45] VITALS: BP 115/44; PULSE 64; RESP 16; TEMP 35.5; O2SAT 96
[2023-03-01 17:28] LABS: Glucose Point of Care 126 mg/dl (65-105)
[2023-03-01] MEDS: traMADol HCL (*CRX) 50 MG TABLET PO (20:44)
[2023-03-01] MEDS: GABAPENTIN 100 MG CAPSULE PO (20:44)
[2023-03-01 20:45] LABS: Glucose Point of Care 172 mg/dl (65-105)
[2023-03-02] VITALS: BP 117/44; PULSE 66; RESP 16; TEMP 36.6; O2SAT 92
[2023-03-02] MEDS: LEVOTHYROXINE SODIUM 75 MCG TABLET PO (06:29)
[2023-03-02 07:51] LABS: Glucose Point of Care 152 mg/dl (65-105)
[2023-03-02 08:00] VITALS: BP 110/46; PULSE 59; RESP 14; TEMP 35.9; O2SAT 95
[2023-03-02 10:59] VITALS: PULSE 59
[2023-03-02] MEDS: METOPROLOL SUCCINATE EXT REL 25 MG TABCR PO (10:59)
[2023-03-02] MEDS: CHOLECALCIFEROL 1,000 UNITS TABLET 1000 UNITS PO (10:59)
[2023-03-02] MEDS: MONTELUKAST SODIUM 10 MG TABLET PO (10:59)
[2023-03-02] MEDS: VENLAFAXINE HCL XR 75 MG CAP.ER.24H PO (10:59)
[2023-03-02] MEDS: levETIRAcetam 500 MG TABLET PO ×2 (11:00→16:42)
[2023-03-02] MEDS: EMPAGLIFLOZIN 10 MG TABLET PO (11:00)
[2023-03-02] MEDS: ATORVASTATIN 40 MG TABLET 80 MG PO (11:00)
[2023-03-02] MEDS: APIXABAN 2.5 MG TABLET 5 MG PO ×2 (11:01→20:46)
[2023-03-02] MEDS: SPIRONOLACTONE 25 MG TABLET PO (11:02)
[2023-03-02] MEDS: DOCUSATE SODIUM 100 MG CAPSULE PO ×2 (11:02→20:47)
[2023-03-02] MEDS: INSULIN GLARGINE (*BKC) 1,000 UNITS/10 ML VIAL 34 UNITS SUB-Q (11:02)
[2023-03-02] MEDS: MIRABEGRON 25 MG ER TABLET 50 MG PO (11:03)
[2023-03-02] MEDS: SACUBITRIL/VALSARTAN 24-26 MG TABLET 1 TAB PO ×2 (11:09→16:42)
[2023-03-02] MEDS: INSULIN HUMAN LISPRO (*BKC) 1,000 UNITS/10 ML VIAL SUB-Q ×2 (11:38→20:52)
[2023-03-02 11:39] LABS: Glucose Point of Care 290 mg/dl (65-105)
[2023-03-02 16:00] VITALS: BP 117/44; PULSE 62; RESP 16; TEMP 35.8; O2SAT 94
[2023-03-02 16:43] LABS: Glucose Point of Care 131 mg/dl (65-105)
--- NOTE | 2023-03-02 18:21 | PC.NURSE ---
Patient back to bed using nila croft. She had a lot of company at dinner and states she just feels like her head is swimming. Once back in bed she stated she was starting to feel better. Call light in reach and instructed patient to call me if she needed anything.
[2023-03-02] MEDS: traMADol HCL (*CRX) 50 MG TABLET PO (20:46)
[2023-03-02] MEDS: GABAPENTIN 100 MG CAPSULE PO (20:47)
[2023-03-02 20:51] LABS: Glucose Point of Care 215 mg/dl (65-105)
--- NOTE | 2023-03-02 22:06 | PC.NURSE ---
pt c/o frontal TUBBS, pt reminded she was given tramadol with hs meds, hob elevated, pt turned to right side, lights dimmed, call light in reach
[2023-03-03] VITALS: BP 121/46; PULSE 61; RESP 18; TEMP 36.2; O2SAT 90
[2023-03-03] MEDS: LEVOTHYROXINE SODIUM 75 MCG TABLET PO (06:31)
[2023-03-03 08:00] VITALS: BP 138/72; PULSE 78; RESP 17; TEMP 36.6
[2023-03-03 08:16] LABS: Glucose Point of Care 128 mg/dl (65-105)
[2023-03-03] MEDS: MIRABEGRON 25 MG ER TABLET 50 MG PO (09:01)
[2023-03-03] MEDS: polyethylene glycoL 3350 17 GM POWD.PACK PO (09:01)
[2023-03-03] MEDS: CHOLECALCIFEROL 1,000 UNITS TABLET 1000 UNITS PO (09:01)
[2023-03-03] MEDS: SACUBITRIL/VALSARTAN 24-26 MG TABLET 1 TAB PO ×2 (09:01→16:39)
[2023-03-03 09:02] VITALS: PULSE 78
[2023-03-03] MEDS: SPIRONOLACTONE 25 MG TABLET PO (09:02)
[2023-03-03] MEDS: ATORVASTATIN 40 MG TABLET 80 MG PO (09:02)
[2023-03-03] MEDS: VENLAFAXINE HCL XR 75 MG CAP.ER.24H PO (09:02)
[2023-03-03] MEDS: levETIRAcetam 500 MG TABLET PO ×2 (09:02→16:39)
[2023-03-03] MEDS: METOPROLOL SUCCINATE EXT REL 25 MG TABCR PO (09:02)
[2023-03-03] MEDS: MONTELUKAST SODIUM 10 MG TABLET PO (09:03)
[2023-03-03] MEDS: APIXABAN 2.5 MG TABLET 5 MG PO ×2 (09:03→21:33)
[2023-03-03] MEDS: DOCUSATE SODIUM 100 MG CAPSULE PO ×2 (09:03→21:33)
[2023-03-03] MEDS: EMPAGLIFLOZIN 10 MG TABLET PO (09:03)
[2023-03-03] MEDS: INSULIN GLARGINE (*BKC) 1,000 UNITS/10 ML VIAL 34 UNITS SUB-Q (09:04)
[2023-03-03 12:21] LABS: Glucose Point of Care 226 mg/dl (65-105)
[2023-03-03] MEDS: INSULIN HUMAN LISPRO (*BKC) 1,000 UNITS/10 ML VIAL SUB-Q (12:34)
[2023-03-03 16:00] VITALS: BP 128/74; PULSE 78; RESP 18; TEMP 36.6; O2SAT 94
[2023-03-03] MEDS: traMADol HCL (*CRX) 50 MG TABLET PO (16:39)
[2023-03-03 16:56] LABS: Glucose Point of Care 132 mg/dl (65-105)
--- NOTE | 2023-03-03 17:25 | PC.NURSE ---
r shoulder, r elbow, and buttocks are all healed. aqua cell used at this time as needed for preventive tx.
[2023-03-03] MEDS: GABAPENTIN 100 MG CAPSULE PO (21:33)
[2023-03-03 21:37] LABS: Glucose Point of Care 163 mg/dl (65-105)
[2023-03-03 23:53] VITALS: BP 116/44; PULSE 65; RESP 16; TEMP 36.3; O2SAT 95
--- NOTE | 2023-03-04 05:28 | PC.NURSE ---
Patient was already in bed at the start of the shift. Patient seemed to be comfortable, and was hoping for a good night sleep, as patient had not slept well the night before. Patient stated she had no pain. Patient's vitals were WNL, with the exception of a lower temperature (97.4) and a low diastolic BP (116/44). Patient slept well, with one time awake during the night. Patient required a sip of water, but stated she was not in pain, and quickly went back to sleep.
[2023-03-04] MEDS: LEVOTHYROXINE SODIUM 75 MCG TABLET PO (06:35)
[2023-03-04 08:00] VITALS: BP 116/42; PULSE 78; RESP 18; TEMP 36.1; O2SAT 97
[2023-03-04 08:09] LABS: Glucose Point of Care 106 mg/dl (65-105)
[2023-03-04] MEDS: polyethylene glycoL 3350 17 GM POWD.PACK PO (09:18)
[2023-03-04] MEDS: MIRABEGRON 25 MG ER TABLET 50 MG PO (09:19)
[2023-03-04] MEDS: levETIRAcetam 500 MG TABLET PO ×2 (09:20→16:37)
[2023-03-04] MEDS: CHOLECALCIFEROL 1,000 UNITS TABLET 1000 UNITS PO (09:20)
[2023-03-04] MEDS: SACUBITRIL/VALSARTAN 24-26 MG TABLET 1 TAB PO ×2 (09:20→16:37)
[2023-03-04] MEDS: DOCUSATE SODIUM 100 MG CAPSULE PO ×2 (09:21→21:36)
[2023-03-04] MEDS: VENLAFAXINE HCL XR 75 MG CAP.ER.24H PO (09:21)
[2023-03-04] MEDS: EMPAGLIFLOZIN 10 MG TABLET PO (09:21)
[2023-03-04] MEDS: SPIRONOLACTONE 25 MG TABLET PO (09:21)
[2023-03-04] MEDS: ATORVASTATIN 40 MG TABLET 80 MG PO (09:21)
[2023-03-04] MEDS: MONTELUKAST SODIUM 10 MG TABLET PO (09:21)
[2023-03-04] MEDS: APIXABAN 2.5 MG TABLET 5 MG PO ×2 (09:21→21:36)
[2023-03-04 09:22] VITALS: PULSE 86
[2023-03-04] MEDS: INSULIN GLARGINE (*BKC) 1,000 UNITS/10 ML VIAL 34 UNITS SUB-Q (09:22)
[2023-03-04] MEDS: METOPROLOL SUCCINATE EXT REL 25 MG TABCR PO (09:22)
[2023-03-04 12:01] LABS: Glucose Point of Care 207 mg/dl (65-105)
[2023-03-04] MEDS: INSULIN HUMAN LISPRO (*BKC) 1,000 UNITS/10 ML VIAL SUB-Q (12:06)
[2023-03-04] MEDS: ACETAMINOPHEN 325 MG TABLET 650 MG PO (13:18)
[2023-03-04 16:00] VITALS: BP 106/44; PULSE 62; RESP 18; TEMP 36.7; O2SAT 94
[2023-03-04 16:22] LABS: Glucose Point of Care 150 mg/dl (65-105)
[2023-03-04] MEDS: GABAPENTIN 100 MG CAPSULE PO (21:36)
[2023-03-04 21:43] LABS: Glucose Point of Care 183 mg/dl (65-105)
[2023-03-05] VITALS: BP 110/54; PULSE 60; RESP 15; TEMP 36.3; O2SAT 93
[2023-03-05] MEDS: LEVOTHYROXINE SODIUM 75 MCG TABLET PO (05:52)
[2023-03-05] MEDS: traMADol HCL (*CRX) 50 MG TABLET PO ×2 (07:54→20:22)
[2023-03-05 08:00] VITALS: BP 118/60; PULSE 68; RESP 15; TEMP 36.3; O2SAT 94
[2023-03-05 08:51] LABS: Glucose Point of Care 123 mg/dl (65-105)
[2023-03-05] MEDS: polyethylene glycoL 3350 17 GM POWD.PACK PO (09:58)
[2023-03-05] MEDS: MIRABEGRON 25 MG ER TABLET 50 MG PO (09:58)
[2023-03-05] MEDS: INSULIN GLARGINE (*BKC) 1,000 UNITS/10 ML VIAL 34 UNITS SUB-Q (09:58)
[2023-03-05] MEDS: levETIRAcetam 500 MG TABLET PO ×2 (09:58→17:39)
[2023-03-05] MEDS: CHOLECALCIFEROL 1,000 UNITS TABLET 1000 UNITS PO (09:58)
[2023-03-05 09:59] VITALS: PULSE 84
[2023-03-05] MEDS: METOPROLOL SUCCINATE EXT REL 25 MG TABCR PO (09:59)
[2023-03-05] MEDS: SACUBITRIL/VALSARTAN 24-26 MG TABLET 1 TAB PO ×2 (09:59→17:39)
[2023-03-05] MEDS: MONTELUKAST SODIUM 10 MG TABLET PO (09:59)
[2023-03-05] MEDS: APIXABAN 2.5 MG TABLET 5 MG PO ×2 (09:59→20:22)
[2023-03-05] MEDS: SPIRONOLACTONE 25 MG TABLET PO (09:59)
[2023-03-05] MEDS: ATORVASTATIN 40 MG TABLET 80 MG PO (09:59)
[2023-03-05] MEDS: DOCUSATE SODIUM 100 MG CAPSULE PO ×2 (10:00→20:22)
[2023-03-05] MEDS: VENLAFAXINE HCL XR 75 MG CAP.ER.24H PO (10:00)
[2023-03-05] MEDS: EMPAGLIFLOZIN 10 MG TABLET PO (10:00)
[2023-03-05 12:03] LABS: Glucose Point of Care 204 mg/dl (65-105)
[2023-03-05] MEDS: INSULIN HUMAN LISPRO (*BKC) 1,000 UNITS/10 ML VIAL SUB-Q ×2 (12:04→20:22)
[2023-03-05 16:00] VITALS: BP 114/47; PULSE 68; RESP 17; TEMP 35.6; O2SAT 96
[2023-03-05 17:12] LABS: Glucose Point of Care 154 mg/dl (65-105)
[2023-03-05] MEDS: GABAPENTIN 100 MG CAPSULE PO (20:22)
[2023-03-05 20:25] LABS: Glucose Point of Care 204 mg/dl (65-105)
[2023-03-05 23:24] VITALS: BP 142/54; PULSE 64; RESP 14; TEMP 36.3; O2SAT 92
[2023-03-06] MEDS: traMADol HCL (*CRX) 50 MG TABLET PO ×2 (05:15→20:10)
[2023-03-06] MEDS: LEVOTHYROXINE SODIUM 75 MCG TABLET PO (05:30)
[2023-03-06 08:00] VITALS: BP 128/53; PULSE 60; RESP 16; TEMP 36.2; O2SAT 98
[2023-03-06] MEDS: VENLAFAXINE HCL XR 75 MG CAP.ER.24H PO (10:10)
[2023-03-06] MEDS: MIRABEGRON 25 MG ER TABLET 50 MG PO (10:10)
[2023-03-06] MEDS: MONTELUKAST SODIUM 10 MG TABLET PO (10:10)
[2023-03-06] MEDS: levETIRAcetam 500 MG TABLET PO ×2 (10:10→17:33)
[2023-03-06] MEDS: ATORVASTATIN 40 MG TABLET 80 MG PO (10:10)
[2023-03-06 10:11] VITALS: PULSE 128
[2023-03-06] MEDS: METOPROLOL SUCCINATE EXT REL 25 MG TABCR PO (10:11)
[2023-03-06] MEDS: SPIRONOLACTONE 25 MG TABLET PO (10:11)
[2023-03-06] MEDS: CHOLECALCIFEROL 1,000 UNITS TABLET 1000 UNITS PO (10:12)
[2023-03-06] MEDS: DOCUSATE SODIUM 100 MG CAPSULE PO ×2 (10:12→20:10)
[2023-03-06] MEDS: APIXABAN 2.5 MG TABLET 5 MG PO ×2 (10:12→20:10)
[2023-03-06] MEDS: EMPAGLIFLOZIN 10 MG TABLET PO (10:12)
[2023-03-06] MEDS: SACUBITRIL/VALSARTAN 24-26 MG TABLET 1 TAB PO ×2 (10:12→17:33)
[2023-03-06] MEDS: INSULIN GLARGINE (*BKC) 1,000 UNITS/10 ML VIAL 34 UNITS SUB-Q (10:14)
[2023-03-06 12:01] LABS: Glucose Point of Care 168 mg/dl (65-105)
[2023-03-06 12:01] LABS: Glucose Point of Care 82 mg/dl (65-105)
[2023-03-06 16:00] VITALS: BP 123/49; PULSE 69; RESP 16; TEMP 36; O2SAT 95
[2023-03-06 17:04] LABS: Glucose Point of Care 160 mg/dl (65-105)
[2023-03-06] MEDS: GABAPENTIN 100 MG CAPSULE PO (20:10)
[2023-03-06 20:13] LABS: Glucose Point of Care 189 mg/dl (65-105)
[2023-03-06 23:15] VITALS: BP 127/48; PULSE 64; RESP 14; TEMP 36.2; O2SAT 91
[2023-03-07] MEDS: LEVOTHYROXINE SODIUM 75 MCG TABLET PO (06:24)
[2023-03-07 07:53] LABS: Glucose Point of Care 76 mg/dl (65-105)
[2023-03-07 08:00] VITALS: BP 114/51; PULSE 64; RESP 18; TEMP 35.7; O2SAT 95
[2023-03-07] MEDS: polyethylene glycoL 3350 17 GM POWD.PACK PO (09:52)
[2023-03-07 09:53] VITALS: PULSE 86
[2023-03-07] MEDS: APIXABAN 2.5 MG TABLET 5 MG PO ×2 (09:53→20:49)
[2023-03-07] MEDS: DOCUSATE SODIUM 100 MG CAPSULE PO ×2 (09:53→20:49)
[2023-03-07] MEDS: EMPAGLIFLOZIN 10 MG TABLET PO (09:53)
[2023-03-07] MEDS: ATORVASTATIN 40 MG TABLET 80 MG PO (09:53)
[2023-03-07] MEDS: levETIRAcetam 500 MG TABLET PO ×2 (09:53→17:49)
[2023-03-07] MEDS: CHOLECALCIFEROL 1,000 UNITS TABLET 1000 UNITS PO (09:53)
[2023-03-07] MEDS: MIRABEGRON 25 MG ER TABLET 50 MG PO (09:53)
[2023-03-07] MEDS: MONTELUKAST SODIUM 10 MG TABLET PO (09:53)
[2023-03-07] MEDS: METOPROLOL SUCCINATE EXT REL 25 MG TABCR PO (09:53)
[2023-03-07] MEDS: SPIRONOLACTONE 25 MG TABLET PO (09:53)
[2023-03-07] MEDS: SACUBITRIL/VALSARTAN 24-26 MG TABLET 1 TAB PO ×2 (09:53→17:49)
[2023-03-07] MEDS: VENLAFAXINE HCL XR 75 MG CAP.ER.24H PO (09:53)
[2023-03-07] MEDS: INSULIN GLARGINE (*BKC) 1,000 UNITS/10 ML VIAL 34 UNITS SUB-Q (09:54)
[2023-03-07] MEDS: INSULIN HUMAN LISPRO (*BKC) 1,000 UNITS/10 ML VIAL SUB-Q (12:07)
[2023-03-07 12:10] LABS: Glucose Point of Care 218 mg/dl (65-105)
[2023-03-07 16:00] VITALS: BP 114/52; PULSE 66; RESP 18; TEMP 36.2; O2SAT 94
[2023-03-07 17:04] LABS: Glucose Point of Care 174 mg/dl (65-105)
[2023-03-07] MEDS: GABAPENTIN 100 MG CAPSULE PO (20:49)
[2023-03-07 21:00] LABS: Glucose Point of Care 200 mg/dl (65-105)
[2023-03-08] VITALS: BP 108/73; PULSE 65; RESP 16; TEMP 35.9; O2SAT 90
[2023-03-08] MEDS: traMADol HCL (*CRX) 50 MG TABLET PO (01:39)
[2023-03-08] MEDS: LEVOTHYROXINE SODIUM 75 MCG TABLET PO (06:32)
[2023-03-08 07:37] LABS: Basophils Absolute Auto 0.13 K/mm3 (0.00-0.10); Basophils Percent Auto 1.7 % (0.0-1.0); Eosinophils Absolute Auto 0.58 K/mm3 (0.02-0.50); Eosinophils Percent Auto 7.6 % (1.0-6.0); Hematocrit 34.9 % (35.0-42.0); Hemoglobin 10.7 g/dL (11.7-13.8); Immature Granulocyte Absolute 0.05 K/mm3 (0.00-0.00); Immature Granulocyte Percent A 0.7 % (0.0-0.0); Lymphocytes Absolute Auto 2.03 K/mm3 (1.10-4.50); Lymphocytes Percent Auto 26.5 % (18.0-42.0); Mean Corpuscular HGB Conc 30.7 g/dL (32.0-36.0); Mean Corpuscular Hemoglobin 28.5 pg (27.0-31.0); Mean Corpuscular Volume 93.1 fL (78.0-102.0); Mean Platelet Volume 8.7 fl (9.2-11.8); Monocytes Absolute Auto 0.68 K/mm3 (0.10-0.90); Monocytes Percent Auto 8.9 % (2.0-11.0); Neutrophils Absolute Auto 4.2 K/mm3 (1.7-7.2); Neutrophils Percent Auto 54.6 % (50.0-70.0); Platelet Count Result 392 K/mm3 (150-420); Red Blood Count 3.75 M/mm3 (4.20-5.40); White Blood Count 7.7 K/mm3 (4.8-10.8)
[2023-03-08 07:59] LABS: Glucose Point of Care 112 mg/dl (65-105)
[2023-03-08 08:00] VITALS: BP 114/48; PULSE 82; RESP 18; TEMP 36.1; O2SAT 95
[2023-03-08 08:04] LABS: Alanine Aminotransferase 45 U/L (14-59); Albumin Level 2.7 g/dL (3.4-5.0); Alkaline Phosphatase 157 U/L (46-116); Anion Gap 9 mmol/L (8-16); Aspartate Amino Transferase 25 U/L (15-37); Bilirubin,Total 0.4 mg/dL (0.00-1.00); Blood Urea Nitrogen 42 mg/dL (7-18); Calcium 8.7 mg/dL (8.5-10.1); Carbon Dioxide 27 mmol/L (21-32); Chloride 101 mmol/L (98-108); Estimated CRCL calculation 24 ml/min; Estimated Glomerular Filt Rate 30; Glucose 115 mg/dL (70-99); Osmolality Calculated 295 mOsm/kg (285-295); Sodium 137 mmol/L (136-145); Total Protein 6.8 g/dL (6.4-8.2)
[2023-03-08 08:05] LABS: Phosphorus 4.3 mg/dL (2.6-4.7)
[2023-03-08] MEDS: SACUBITRIL/VALSARTAN 24-26 MG TABLET 1 TAB PO ×2 (09:36→16:37)
[2023-03-08] MEDS: MIRABEGRON 25 MG ER TABLET 50 MG PO (09:36)
[2023-03-08] MEDS: VENLAFAXINE HCL XR 75 MG CAP.ER.24H PO (09:37)
[2023-03-08] MEDS: SPIRONOLACTONE 25 MG TABLET PO (09:37)
[2023-03-08] MEDS: levETIRAcetam 500 MG TABLET PO ×2 (09:37→16:37)
[2023-03-08] MEDS: ATORVASTATIN 40 MG TABLET 80 MG PO (09:37)
[2023-03-08] MEDS: CHOLECALCIFEROL 1,000 UNITS TABLET 1000 UNITS PO (09:37)
[2023-03-08 09:38] VITALS: PULSE 86
[2023-03-08] MEDS: METOPROLOL SUCCINATE EXT REL 25 MG TABCR PO (09:38)
[2023-03-08] MEDS: EMPAGLIFLOZIN 10 MG TABLET PO (09:38)
[2023-03-08] MEDS: APIXABAN 2.5 MG TABLET 5 MG PO ×2 (09:38→21:29)
[2023-03-08] MEDS: DOCUSATE SODIUM 100 MG CAPSULE PO ×2 (09:38→21:29)
[2023-03-08] MEDS: MONTELUKAST SODIUM 10 MG TABLET PO (09:38)
[2023-03-08] MEDS: INSULIN GLARGINE (*BKC) 1,000 UNITS/10 ML VIAL 34 UNITS SUB-Q (09:39)
[2023-03-08] MEDS: polyethylene glycoL 3350 17 GM POWD.PACK PO (09:40)
--- NOTE | 2023-03-08 10:54 | P.PNIM_ITS ---
Progress Note: A&P Assessment and Plan (1) Weakness: Code(s): R53.1 - Weakness Status: Acute Assessment and Plan: 02/22/23: * Admit to [place] swing bed program * Continue PT and OT for strength and rehabilitation after fractures. 02/27: No changes 03/08: * care conference scheduled for today * patient making great progress with rehab and use of gordon walker * continue PT and OT (2) Pulmonary embolism: Qualifiers: Pulmonary embolism type: unspecified Chronicity: acute Acute cor pulmonale presence: with acute cor pulmonale Qualified Code(s): I26.09 - Other pulmonary embolism with acute cor pulmonale Code(s): I26.99 - Other pulmonary embolism without acute cor pulmonale Status: Acute Assessment and Plan: 02/22/23: * Chest CTA on 02/18/23 revealed acute pulmonary emboli in the distal bilateral main pulmonary arteries extending into segmental and subsegmental branches of all lobes, large clot burden, with evidence of right heart strain. * Echo revealed moderately reduced LV systolic function with an EF of 35-40%, moderate pulmonary hypertension. Cardiology was consulted at that time and ruled out right heart strain. * Venous dopplers were performed and was negative for DVT. * PE likely due to her recent orthopedic injuries * Patient was started on Eliquis 10 mg BID for 7 days and then drop down to 5mg BID thereafter. 03/08/23: * no change, continue Eliquis (3) Hypertension: Code(s): I10 - Essential (primary) hypertension Status: Acute Assessment and Plan: 02/22/23: * B/P ranging 116/56-120/62 * Continue home medications 03/08/23: * no change to current treatment plan, blood pressure is stable (4) Atrial fibrillation: Code(s): I48.91 - Unspecified atrial fibrillation Status: Acute Assessment and Plan: 02/22/23: * Currently on Eliquis anticoagulation for her PE * Metoprolol 25 mg po daily restarted. 03/08/23: * no change to current treatment plan (5) Type 2 diabetes mellitus: Qualifiers: Diabetes mellitus termite technician insulin use: with fdc use Diabetes mellitus complication status: with kidney complications Diabetes mellitus complication detail: with chronic kidney disease Chronic kidney disease stage: stage 3 (moderate) Chronic kidney disease stage 3 subtype: unspecified whether 3a or 3b Qualified Code(s): E11.22 - Type 2 diabetes mellitus with diabetic chronic kidney disease; N18.30 - Chronic kidney disease, stage 3 unspecified; Z79.4 - intermission coordinator (current) use of insulin Code(s): E11.9 - Type 2 diabetes mellitus without complications Status: Chronic Assessment and Plan: 02/22/23: * BG ranging 123-162 * AC/HS accu checks * Lantus 34 units q am * Corrective low dose SSI ordered for HS * Corrective high dose SSI ordered with meals. * hypoglycemic protocol ordered. 03/08/23: * blood glucose ranging 112-115 * continue with current treatment plan (6) Humerus fracture: Qualifiers: Encounter type: subsequent encounter Fracture type: closed Laterality: right Code(s): S42.309A - Unspecified fracture of shaft of humerus, unspecified arm, initial encounter for closed fracture Status: Acute Assessment and Plan: 02/22/23: * No surgical repair performed * Sling for stabilization and comfort * Continue pain control efforts * Continue PT and OT 03/08/23: * continue with current treatment plan (7) Cervical compression fracture: Code(s): S12.9XXA -
--- NOTE | 2023-03-08 10:54 | PM.IMPN ---
Progress Note: A&P Assessment and Plan (1) Weakness: Code(s): R53.1 - Weakness Status: Acute Assessment and Plan: 02/22/23: Admit to [place] swing bed program Continue PT and OT for strength and rehabilitation after fractures. 02/27: No changes 03/08: care conference scheduled for today patient making great progress with rehab and use of gordon walker continue PT and OT (2) Pulmonary embolism: Qualifiers: Pulmonary embolism type: unspecified Chronicity: acute Acute cor pulmonale presence: with acute cor pulmonale Qualified Code(s): I26.09 - Other pulmonary embolism with acute cor pulmonale Code(s): I26.99 - Other pulmonary embolism without acute cor pulmonale Status: Acute Assessment and Plan: 02/22/23: Chest CTA on 02/18/23 revealed acute pulmonary emboli in the distal bilateral main pulmonary arteries extending into segmental and subsegmental branches of all lobes, large clot burden, with evidence of right heart strain. Echo revealed moderately reduced LV systolic function with an EF of 35-40%, moderate pulmonary hypertension. Cardiology was consulted at that time and ruled out right heart strain. Venous dopplers were performed and was negative for DVT. PE likely due to her recent orthopedic injuries Patient was started on Eliquis 10 mg BID for 7 days and then drop down to 5mg BID thereafter. 03/08/23: no change, continue Eliquis (3) Hypertension: Code(s): I10 - Essential (primary) hypertension Status: Acute Assessment and Plan: 02/22/23: B/P ranging 116/56-120/62 Continue home medications 03/08/23: no change to current treatment plan, blood pressure is stable (4) Atrial fibrillation: Code(s): I48.91 - Unspecified atrial fibrillation Status: Acute Assessment and Plan: 02/22/23: Currently on Eliquis anticoagulation for her PE Metoprolol 25 mg po daily restarted. 03/08/23: no change to current treatment plan (5) Type 2 diabetes mellitus: Qualifiers: Diabetes mellitus chcf insulin use: with buttermaker helper use Diabetes mellitus complication status: with kidney complications Diabetes mellitus complication detail: with chronic kidney disease Chronic kidney disease stage: stage 3 (moderate) Chronic kidney disease stage 3 subtype: unspecified whether 3a or 3b Qualified Code(s): E11.22 - Type 2 diabetes mellitus with diabetic chronic kidney disease; N18.30 - Chronic kidney disease, stage 3 unspecified; Z79.4 - buttermaker helper (current) use of insulin Code(s): E11.9 - Type 2 diabetes mellitus without complications Status: Chronic Assessment and Plan: 02/22/23: BG ranging 123-162 AC/HS accu checks Lantus 34 units q am Corrective low dose SSI ordered for HS Corrective high dose SSI ordered with meals. hypoglycemic protocol ordered. 03/08/23: blood glucose ranging 112-115 continue with current treatment plan (6) Humerus fracture: Qualifiers: Encounter type: subsequent encounter Fracture type: closed Laterality: right Code(s): S42.309A - Unspecified fracture of shaft of humerus, unspecified arm, initial encounter for closed fracture Status: Acute Assessment and Plan: 02/22/23: No surgical repair performed Sling for stabilization and comfort Continue pain control efforts Continue PT and OT 03/08/23: continue with current treatment plan (7) Cervical compression fracture: Code(s): S12.9XXA - Fracture of neck, unspecified, initial encounter Status: Acute Assessment and Plan: 02/22/23: see above HPI for details Continue [place] J collar at all times except when eating. She will need to follow up with neurosurgery in 4 weeks from original injury 03/08/23: continue with current treatment plan Time Spent With Patient Time with patient: 25 - 35 minutes Subjective Date/time seen: 03/08/23 10:54 Interval his
[2023-03-08 11:55] LABS: Glucose Point of Care 169 mg/dl (65-105)
[2023-03-08 15:46] VITALS: BP 121/53; PULSE 65; RESP 16; TEMP 35.8; O2SAT 97
[2023-03-08 16:40] LABS: Glucose Point of Care 152 mg/dl (65-105)
[2023-03-08] MEDS: GABAPENTIN 100 MG CAPSULE PO (21:30)
[2023-03-08 21:48] LABS: Glucose Point of Care 193 mg/dl (65-105)
[2023-03-09] VITALS: BP 126/43; PULSE 68; RESP 16; TEMP 36.2; O2SAT 92
[2023-03-09] MEDS: LEVOTHYROXINE SODIUM 75 MCG TABLET PO (06:18)
[2023-03-09] MEDS: traMADol HCL (*CRX) 50 MG TABLET PO ×2 (07:14→20:08)
[2023-03-09 08:00] VITALS: BP 100/48; PULSE 78; RESP 18; TEMP 36.1; O2SAT 97
[2023-03-09 08:53] VITALS: PULSE 86
[2023-03-09] MEDS: METOPROLOL SUCCINATE EXT REL 25 MG TABCR PO (08:53)
[2023-03-09] MEDS: SACUBITRIL/VALSARTAN 24-26 MG TABLET 1 TAB PO ×2 (08:53→17:33)
[2023-03-09] MEDS: CHOLECALCIFEROL 1,000 UNITS TABLET 1000 UNITS PO (08:53)
[2023-03-09] MEDS: polyethylene glycoL 3350 17 GM POWD.PACK PO (08:53)
[2023-03-09] MEDS: SPIRONOLACTONE 25 MG TABLET PO (08:53)
[2023-03-09] MEDS: DOCUSATE SODIUM 100 MG CAPSULE PO ×2 (08:53→20:07)
[2023-03-09] MEDS: MONTELUKAST SODIUM 10 MG TABLET PO (08:53)
[2023-03-09] MEDS: MIRABEGRON 25 MG ER TABLET 50 MG PO (08:53)
[2023-03-09] MEDS: EMPAGLIFLOZIN 10 MG TABLET PO (08:53)
[2023-03-09] MEDS: levETIRAcetam 500 MG TABLET PO ×2 (08:54→17:33)
[2023-03-09] MEDS: APIXABAN 2.5 MG TABLET 5 MG PO ×2 (08:54→20:07)
[2023-03-09] MEDS: ATORVASTATIN 40 MG TABLET 80 MG PO (08:54)
[2023-03-09] MEDS: VENLAFAXINE HCL XR 75 MG CAP.ER.24H PO (08:54)
[2023-03-09] MEDS: INSULIN GLARGINE (*BKC) 1,000 UNITS/10 ML VIAL 34 UNITS SUB-Q (08:55)
[2023-03-09 11:51] LABS: Glucose Point of Care 124 mg/dl (65-105)
[2023-03-09 11:51] LABS: Glucose Point of Care 202 mg/dl (65-105)
[2023-03-09] MEDS: INSULIN HUMAN LISPRO (*BKC) 1,000 UNITS/10 ML VIAL SUB-Q (11:57)
--- NOTE | 2023-03-09 14:33 | PC.NURSE ---
0800 c/o severe head ache. pain in the r ear. n/v. dry heaves. up in chair. filling hauler aware. 0910 up with pt and walks in [place]. back to room.. c/o when she gets to room. that she needs be but can not get there because legs are giving out. sat on chair and the helped to bsc in door way. did have mod bm soft brown. c/o weakness amb to br with stand of 2 assist. 1000 sleeps quietly in bed. hob up. 1150 up with assist to chair for lunch. claims she feels better. 1330 pt works with her. c/o she gets winded with walking. vs 95% room air. hr 72. rests in chair at this time. 1350 ot her and works with her and she is back in bed with no c/o.
--- NOTE | 2023-03-09 14:48 | PC.NURSE ---
aqua cells changed to left and right shoulder and back of neck. also r elbow. these are used for protective from braces and sling rubbing these areas. all areas are closed.
[2023-03-09 16:00] VITALS: BP 118/60; PULSE 84; RESP 18; TEMP 36.6; O2SAT 93
[2023-03-09 16:34] LABS: Glucose Point of Care 99 mg/dl (65-105)
--- NOTE | 2023-03-09 18:01 | PM.EVENT ---
Event Note Event Note Event Note: S: Notified by nursing staff that patient generally not feeling well today and complaining of right ear pain. I spoke with patient and she is not in any acute distress but she is complaining of right ear pain since yesterday that comes and goes. O: On examination patient has erythema and seborrheic dermatitis to the pinna and canal on the right ear. Clear fluid behind the TMs not bulging. Left ear unremarkable appearing. No respiratory distress. Patient awake and alert to baseline mental status. A: Otitis externa right ear P: Ear wick placed by provider and RN was instructed on use and replacement as needed. Available topical antibiotic/steroid otic drop ordered. [id number]
[2023-03-09] MEDS: NEOMYCIN/POLYMYXIN/HYDROCORT OT SUSP 10 ML BTL (*BKC) 4 DROP RIGHT EAR ×2 (18:02→20:08)
[2023-03-09] MEDS: GABAPENTIN 100 MG CAPSULE PO (20:07)
[2023-03-09 20:12] LABS: Glucose Point of Care 190 mg/dl (65-105)
[2023-03-09 23:28] VITALS: BP 116/38; PULSE 69; RESP 15; TEMP 36.4; O2SAT 96
[2023-03-10] MEDS: LEVOTHYROXINE SODIUM 75 MCG TABLET PO (05:38)
[2023-03-10 07:40] VITALS: BP 112/47; PULSE 66; RESP 16; TEMP 36.1; O2SAT 95
[2023-03-10 08:18] LABS: Glucose Point of Care 78 mg/dl (65-105)
[2023-03-10 08:30] VITALS: O2SAT 97
[2023-03-10] MEDS: polyethylene glycoL 3350 17 GM POWD.PACK PO (09:41)
[2023-03-10 09:42] VITALS: PULSE 66
[2023-03-10] MEDS: SACUBITRIL/VALSARTAN 24-26 MG TABLET 1 TAB PO ×2 (09:42→17:09)
[2023-03-10] MEDS: CHOLECALCIFEROL 1,000 UNITS TABLET 1000 UNITS PO (09:42)
[2023-03-10] MEDS: SPIRONOLACTONE 25 MG TABLET PO (09:42)
[2023-03-10] MEDS: MONTELUKAST SODIUM 10 MG TABLET PO (09:42)
[2023-03-10] MEDS: METOPROLOL SUCCINATE EXT REL 25 MG TABCR PO (09:42)
[2023-03-10] MEDS: MIRABEGRON 25 MG ER TABLET 50 MG PO (09:42)
[2023-03-10] MEDS: EMPAGLIFLOZIN 10 MG TABLET PO (09:43)
[2023-03-10] MEDS: VENLAFAXINE HCL XR 75 MG CAP.ER.24H PO (09:43)
[2023-03-10] MEDS: APIXABAN 2.5 MG TABLET 5 MG PO ×2 (09:43→20:40)
[2023-03-10] MEDS: ATORVASTATIN 40 MG TABLET 80 MG PO (09:43)
[2023-03-10] MEDS: levETIRAcetam 500 MG TABLET PO ×2 (09:43→17:09)
[2023-03-10] MEDS: INSULIN GLARGINE (*BKC) 1,000 UNITS/10 ML VIAL 34 UNITS SUB-Q (09:43)
[2023-03-10] MEDS: DOCUSATE SODIUM 100 MG CAPSULE PO ×2 (09:43→20:41)
[2023-03-10] MEDS: NEOMYCIN/POLYMYXIN/HYDROCORT OT SUSP 10 ML BTL (*BKC) 4 DROP RIGHT EAR ×4 (09:45→20:41)
[2023-03-10 12:14] LABS: Glucose Point of Care 127 mg/dl (65-105)
--- NOTE | 2023-03-10 13:36 | P.PNIM_ITS ---
Progress Note: A&P Assessment and Plan (1) Weakness: Code(s): R53.1 - Weakness Status: Acute Assessment and Plan: 02/22/23: * Admit to [place] swing bed program * Continue PT and OT for strength and rehabilitation after fractures. 02/27: No changes 03/08: * care conference scheduled for today * patient making great progress with rehab and use of gordon walker * continue PT and OT (2) Pulmonary embolism: Qualifiers: Pulmonary embolism type: unspecified Chronicity: acute Acute cor pulmonale presence: with acute cor pulmonale Qualified Code(s): I26.09 - Other pulmonary embolism with acute cor pulmonale Code(s): I26.99 - Other pulmonary embolism without acute cor pulmonale Status: Acute Assessment and Plan: 02/22/23: * Chest CTA on 02/18/23 revealed acute pulmonary emboli in the distal bilateral main pulmonary arteries extending into segmental and subsegmental branches of all lobes, large clot burden, with evidence of right heart strain. * Echo revealed moderately reduced LV systolic function with an EF of 35-40%, moderate pulmonary hypertension. Cardiology was consulted at that time and ruled out right heart strain. * Venous dopplers were performed and was negative for DVT. * PE likely due to her recent orthopedic injuries * Patient was started on Eliquis 10 mg BID for 7 days and then drop down to 5mg BID thereafter. 03/08/23: * no change, continue Eliquis (3) Hypertension: Code(s): I10 - Essential (primary) hypertension Status: Acute Assessment and Plan: 02/22/23: * B/P ranging 116/56-120/62 * Continue home medications 03/08/23: * no change to current treatment plan, blood pressure is stable (4) Atrial fibrillation: Code(s): I48.91 - Unspecified atrial fibrillation Status: Acute Assessment and Plan: 02/22/23: * Currently on Eliquis anticoagulation for her PE * Metoprolol 25 mg po daily restarted. 03/08/23: * no change to current treatment plan (5) Type 2 diabetes mellitus: Qualifiers: Diabetes mellitus director long term care insulin use: with senior care use Diabetes mellitus complication status: with kidney complications Diabetes mellitus complication detail: with chronic kidney disease Chronic kidney disease stage: stage 3 (moderate) Chronic kidney disease stage 3 subtype: unspecified whether 3a or 3b Qualified Code(s): E11.22 - Type 2 diabetes mellitus with diabetic chronic kidney disease; N18.30 - Chronic kidney disease, stage 3 unspecified; Z79.4 - moth exterminator (current) use of insulin Code(s): E11.9 - Type 2 diabetes mellitus without complications Status: Chronic Assessment and Plan: 02/22/23: * BG ranging 123-162 * AC/HS accu checks * Lantus 34 units q am * Corrective low dose SSI ordered for HS * Corrective high dose SSI ordered with meals. * hypoglycemic protocol ordered. 03/08/23: * blood glucose ranging 112-115 * continue with current treatment plan (6) Humerus fracture: Qualifiers: Encounter type: subsequent encounter Fracture type: closed Laterality: right Code(s): S42.309A - Unspecified fracture of shaft of humerus, unspecified arm, initial encounter for closed fracture Status: Acute Assessment and Plan: 02/22/23: * No surgical repair performed * Sling for stabilization and comfort * Continue pain control efforts * Continue PT and OT 03/08/23: * continue with current treatment plan (7) Cervical compression fracture: Code(s): S12.9XXA -
--- NOTE | 2023-03-10 13:36 | PM.IMPN ---
Progress Note: A&P Assessment and Plan (1) Weakness: Code(s): R53.1 - Weakness Status: Acute Assessment and Plan: 02/22/23: Admit to [place] swing bed program Continue PT and OT for strength and rehabilitation after fractures. 02/27: No changes 03/08: care conference scheduled for today patient making great progress with rehab and use of gordon walker continue PT and OT (2) Pulmonary embolism: Qualifiers: Pulmonary embolism type: unspecified Chronicity: acute Acute cor pulmonale presence: with acute cor pulmonale Qualified Code(s): I26.09 - Other pulmonary embolism with acute cor pulmonale Code(s): I26.99 - Other pulmonary embolism without acute cor pulmonale Status: Acute Assessment and Plan: 02/22/23: Chest CTA on 02/18/23 revealed acute pulmonary emboli in the distal bilateral main pulmonary arteries extending into segmental and subsegmental branches of all lobes, large clot burden, with evidence of right heart strain. Echo revealed moderately reduced LV systolic function with an EF of 35-40%, moderate pulmonary hypertension. Cardiology was consulted at that time and ruled out right heart strain. Venous dopplers were performed and was negative for DVT. PE likely due to her recent orthopedic injuries Patient was started on Eliquis 10 mg BID for 7 days and then drop down to 5mg BID thereafter. 03/08/23: no change, continue Eliquis (3) Hypertension: Code(s): I10 - Essential (primary) hypertension Status: Acute Assessment and Plan: 02/22/23: B/P ranging 116/56-120/62 Continue home medications 03/08/23: no change to current treatment plan, blood pressure is stable (4) Atrial fibrillation: Code(s): I48.91 - Unspecified atrial fibrillation Status: Acute Assessment and Plan: 02/22/23: Currently on Eliquis anticoagulation for her PE Metoprolol 25 mg po daily restarted. 03/08/23: no change to current treatment plan (5) Type 2 diabetes mellitus: Qualifiers: Diabetes mellitus jail insulin use: with long term care administrator use Diabetes mellitus complication status: with kidney complications Diabetes mellitus complication detail: with chronic kidney disease Chronic kidney disease stage: stage 3 (moderate) Chronic kidney disease stage 3 subtype: unspecified whether 3a or 3b Qualified Code(s): E11.22 - Type 2 diabetes mellitus with diabetic chronic kidney disease; N18.30 - Chronic kidney disease, stage 3 unspecified; Z79.4 - parts counterman (current) use of insulin Code(s): E11.9 - Type 2 diabetes mellitus without complications Status: Chronic Assessment and Plan: 02/22/23: BG ranging 123-162 AC/HS accu checks Lantus 34 units q am Corrective low dose SSI ordered for HS Corrective high dose SSI ordered with meals. hypoglycemic protocol ordered. 03/08/23: blood glucose ranging 112-115 continue with current treatment plan (6) Humerus fracture: Qualifiers: Encounter type: subsequent encounter Fracture type: closed Laterality: right Code(s): S42.309A - Unspecified fracture of shaft of humerus, unspecified arm, initial encounter for closed fracture Status: Acute Assessment and Plan: 02/22/23: No surgical repair performed Sling for stabilization and comfort Continue pain control efforts Continue PT and OT 03/08/23: continue with current treatment plan (7) Cervical compression fracture: Code(s): S12.9XXA - Fracture of neck, unspecified, initial encounter Status: Acute Assessment and Plan: 02/22/23: see above HPI for details Continue [place] J collar at all times except when eating. She will need to follow up with neurosurgery in 4 weeks from original injury 03/08/23: continue with current treatment plan Time Spent With Patient Time with patient: 25 - 35 minutes Subjective Date/time seen: 03/10/23 13:36 Interval his
[2023-03-10 16:40] VITALS: BP 111/48; PULSE 63; RESP 16; TEMP 35.6; O2SAT 96
[2023-03-10 17:14] LABS: Glucose Point of Care 131 mg/dl (65-105)
[2023-03-10] MEDS: INSULIN HUMAN LISPRO (*BKC) 1,000 UNITS/10 ML VIAL SUB-Q (20:40)
[2023-03-10] MEDS: GABAPENTIN 100 MG CAPSULE PO (20:41)
[2023-03-10 20:43] LABS: Glucose Point of Care 206 mg/dl (65-105)
[2023-03-10 23:35] VITALS: BP 115/49; PULSE 67; RESP 16; TEMP 36.6; O2SAT 97
[2023-03-11] MEDS: LEVOTHYROXINE SODIUM 75 MCG TABLET PO (06:05)
[2023-03-11 07:35] VITALS: BP 116/16; PULSE 68; RESP 16; TEMP 35.7; O2SAT 96
[2023-03-11 08:03] LABS: Glucose Point of Care 84 mg/dl (65-105)
[2023-03-11 08:30] VITALS: O2SAT 96
[2023-03-11 09:17] VITALS: PULSE 68
[2023-03-11] MEDS: MONTELUKAST SODIUM 10 MG TABLET PO (09:17)
[2023-03-11] MEDS: DOCUSATE SODIUM 100 MG CAPSULE PO (09:17)
[2023-03-11] MEDS: levETIRAcetam 500 MG TABLET PO (09:17)
[2023-03-11] MEDS: SACUBITRIL/VALSARTAN 24-26 MG TABLET 1 TAB PO (09:17)
[2023-03-11] MEDS: METOPROLOL SUCCINATE EXT REL 25 MG TABCR PO (09:17)
[2023-03-11] MEDS: INSULIN GLARGINE (*BKC) 1,000 UNITS/10 ML VIAL 34 UNITS SUB-Q (09:17)
[2023-03-11] MEDS: ATORVASTATIN 40 MG TABLET 80 MG PO (09:18)
[2023-03-11] MEDS: CHOLECALCIFEROL 1,000 UNITS TABLET 1000 UNITS PO (09:18)
[2023-03-11] MEDS: VENLAFAXINE HCL XR 75 MG CAP.ER.24H PO (09:18)
[2023-03-11] MEDS: NEOMYCIN/POLYMYXIN/HYDROCORT OT SUSP 10 ML BTL (*BKC) 4 DROP RIGHT EAR (09:18)
[2023-03-11] MEDS: EMPAGLIFLOZIN 10 MG TABLET PO (09:18)
[2023-03-11] MEDS: APIXABAN 2.5 MG TABLET 5 MG PO (09:18)
[2023-03-11] MEDS: MIRABEGRON 25 MG ER TABLET 50 MG PO (09:18)
[2023-03-11] MEDS: SPIRONOLACTONE 25 MG TABLET PO (09:19)
--- NOTE | 2023-03-11 11:25 | PM.DS ---
DS: Admitting Diagnosis Discharge Date 03/11/2023 Admitting Diagnosis Weakness, pulmonary embolism, hypertension, atrial fibrillation, type 2 diabetes mellitus, humerus fracture, cervical compression fracture DS: Discharge Diagnosis Discharge Diagnosis (1) Weakness: Code(s): R53.1 - Weakness Status: Acute (2) Pulmonary embolism: Qualifiers: Pulmonary embolism type: unspecified Chronicity: acute Acute cor pulmonale presence: with acute cor pulmonale Qualified Code(s): I26.09 - Other pulmonary embolism with acute cor pulmonale Code(s): I26.99 - Other pulmonary embolism without acute cor pulmonale Status: Acute (3) Hypertension: Code(s): I10 - Essential (primary) hypertension Status: Acute (4) Atrial fibrillation: Code(s): I48.91 - Unspecified atrial fibrillation Status: Acute (5) Type 2 diabetes mellitus: Qualifiers: Diabetes mellitus correction insulin use: with illustrator set use Diabetes mellitus complication status: with kidney complications Diabetes mellitus complication detail: with chronic kidney disease Chronic kidney disease stage: stage 3 (moderate) Chronic kidney disease stage 3 subtype: unspecified whether 3a or 3b Qualified Code(s): E11.22 - Type 2 diabetes mellitus with diabetic chronic kidney disease; N18.30 - Chronic kidney disease, stage 3 unspecified; Z79.4 - duco polisher (current) use of insulin Code(s): E11.9 - Type 2 diabetes mellitus without complications Status: Chronic (6) Humerus fracture: Qualifiers: Encounter type: subsequent encounter Fracture type: closed Laterality: right Code(s): S42.309A - Unspecified fracture of shaft of humerus, unspecified arm, initial encounter for closed fracture Status: Acute (7) Cervical compression fracture: Code(s): S12.9XXA - Fracture of neck, unspecified, initial encounter Status: Acute DS: Summary Hospital Course Reason for hospitalization: Swing bed rehabilitation status post right humerus fracture and cervical compression fracture, pulmonary embolism Hospital Course: This is an 83-year-old female patient who was admitted to [facility] swing bed for rehabilitation after identification of pulmonary embolism and cervical compression fracture a couple weeks ago at [facility]. Prior to this patient also had a fall at home fracturing her right proximal humerus that is being treated with non operative repair. Patient still having challenges with bed mobility and transfers. Patient not yet able to return home. Insurance no longer approving additional skilled days. Patient will be admitted to [facility]. Status at Discharge Cognitive/behavioral status at discharge: Awake alert mostly oriented pleasant Functional status at discharge: uses cane/walker Overall status at discharge: patient is progressing back to baseline Time Spent with Patient Time attestation: Total time spent providing and/or coordinating discharge services: 60 minutes including peer to peer attempting to qualify patient for SNF at group home Time spent: Greater than 30 minutes Exam Narrative: General: In no acute distress, well nourished, Improving strength and endurance Head: atraumatic Eyes: EOMI, PERRLA, sclera clear ENT: moist mucous membranes, nasal passages clear Neck: [place] J collar in place. No pain with gentle palpation of the cervical spine be high in the collar. Cardiac: Normal S1 and S2. RRR No murmur, gallops or friction rubs, peripheral pulses intact. Respiratory: Lungs clear to auscultation, no adventitious lung sounds Gastrointestinal: soft, non-distended, epigastric tenderness noted, normoactive bowel sounds. Extremities: moves all extremities well except right shoulder which is in a sling Spine: [place] J collar in place Skin: clean, dry, intact. No wounds or lesions. Neuro: Alert and oriented x4, cranial nerves intact Psych: Mildly dys
[2023-03-11 11:58] LABS: Glucose Point of Care 242 mg/dl (65-105)
[2023-03-11] MEDS: INSULIN HUMAN LISPRO (*BKC) 1,000 UNITS/10 ML VIAL SUB-Q (12:42)
--- NOTE | 2023-03-11 13:05 | PC.NURSE ---
Patient transferring to [facility] and rehab. Patient transferred from chair to wheelchair. All belongings gathered together and sent with patient. Patient has no IV at time of discharge. [place] J collar and sling in place at time of discharge. Patient assisted to change into clothing from home for transfer. Report called to [facility] at long-term. All discharge and instructions reviewed with patient and accepting nurse. Patient left floor via wheelchair accompanied by long-termin home tutor. Daughter followed patient over.
== END 2023-03-11 13:05 | DRG 559 ==
PROVIDERS: Nurse Practitioner Acute Care; Admitting Provider Internal Medicine; PCP Internal Medicine; Visit Provider Internal Medicine
DX: S42.201D Unspecified fracture of upper end of right humerus, subsequent encounter for fracture with routine healing (principal); I26.99 Other pulmonary embolism without acute cor pulmonale; S12.500D Unspecified displaced fracture of sixth cervical vertebra, subsequent encounter for fracture with routine healing; S12.600D Unspecified displaced fracture of seventh cervical vertebra, subsequent encounter for fracture with routine healing; I12.9 Hypertensive chronic kidney disease with stage 1 through stage 4 chronic kidney disease, or unspecified chronic kidney disease; N18.30 Chronic kidney disease, stage 3 unspecified; I27.20 Pulmonary hypertension, unspecified; I48.91 Unspecified atrial fibrillation; E78.5 Hyperlipidemia, unspecified; E03.9 Hypothyroidism, unspecified; E11.42 Type 2 diabetes mellitus with diabetic polyneuropathy; E55.9 Vitamin D deficiency, unspecified; H60.91 Unspecified otitis externa, right ear; W19.XXXD Unspecified fall, subsequent encounter; Z86.73 Personal history of transient ischemic attack (TIA), and cerebral infarction without residual deficits; Z79.4 Long term (current) use of insulin; Z79.01 Long term (current) use of anticoagulants
CPT/HCPCS: 36415; 80053; 82948; 83735; 84100; 85025; 97110; 97162; 97166; 97530; 97535; A9270; J1815

== ENCOUNTER 2023-03-21 14:13 | Inpatient (IN) | payer MEDICARE, SELFPAY ==
[2023-03-21] VITALS (35 sets, daily range): BP systolic 63–111; BP diastolic 37–58; PULSE 39–77; RESP 12–22; TEMP 35.7–35.9; O2SAT 90–100; BMI 29.9
--- NOTE | ~2023-03-21 | CT_ITS ---
EXAMINATION: CT chest abdomen pelvis wo con DATE: 03/21/2023 15:39 INDICATION: Unresponsive. TECHNIQUE: Computed tomography (CT) of the chest, abdomen, and pelvis was performed without intraveno us contrast. Automated exposure control and iterative reconstruction technique were employed. The dos e-length product was 1443.44 mGy-cm. COMPARISON: CT chest 02/18/2023 FINDINGS: CHEST CT: The lungs demonstrate mild atelectasis. Calcified left lung nodules are consistent with old granuloma tous disease. No pleural effusion. The heart size is normal. There are coronary artery calcifications . No pericardial effusion. There is mild thoracic spondylosis. There are bridging endplate osteophyte s at multiple levels in the spine, consistent with diffuse idiopathic skeletal hyperostosis (DISH). ABDOMEN/PELVIS CT: The liver is normal. Calcifications in the spleen are consistent with old granulomatous disease. Ther e are gallstones in the gallbladder, which is normal in size. The pancreas and adrenal glands are nor mal. There is mild atrophy of right kidney. There is a 3 mm stone in left kidney. The bladder is deco mpressed by a Hahn catheter. There is calcified atherosclerosis of the aorta and many of the other a rteries. There is diverticulosis of the colon without evidence of diverticulitis. There are no dilate d loops of bowel. The appendix is normal. There is mild lumbar spondylosis. IMPRESSION: 1. No etiology for the patient's symptoms. Reviewed, dictated and finalized at location A. ATOR SUPERVISOR
--- NOTE | ~2023-03-21 | CT_ITS ---
EXAMINATION: CT cervical spine wo con DATE: 03/21/2023 15:39 INDICATION: Unresponsive. Spine fracture. TECHNIQUE: Computed tomography (CT) of the cervical spine was performed without intravenous contrast. Automated exposure control and iterative reconstruction technique were employed. The dose-length pro duct was 708.91 mGy-cm. COMPARISON: CT cervical spine 02/12/2023 FINDINGS: There is a small left mastoid effusion. There is kyphosis of cervical spine. There are frac tures of the inferior endplates of C6, C7, and T1 with less than 1/5 loss of height. There is moderat charlene decreased disc height at C3-C4 and C5-C6. The following disc levels are specifically discussed: C2-C3: There is no uncovertebral joint osteoarthritis. There is moderate right and severe left facet joint osteoarthritis. There is no neural foraminal stenosis. There is no central canal stenosis. C3-C4: There is severe right and moderate left uncovertebral joint osteoarthritis. There is mild left facet joint osteoarthritis. There is ankylosis of right facet joint with severe hypertrophy. There i s mild bilateral neural foraminal stenosis. There is mild central canal stenosis. C4-C5: There is mild left uncovertebral joint osteoarthritis. There is severe right and mild left fac et joint osteoarthritis. There is no neural foraminal stenosis. There is no central canal stenosis. C5-C6: There is moderate right and mild left uncovertebral joint osteoarthritis. There is severe righ t and mild left facet joint osteoarthritis. There is no neural foraminal stenosis. There is mild cent ral canal stenosis. C6-C7: There is no uncovertebral joint osteoarthritis. There is mild bilateral facet joint osteoarthr itis. There is no neural foraminal stenosis. There is no central canal stenosis. C7-T1: There is no uncovertebral joint osteoarthritis. There is mild bilateral facet joint osteoarthr itis. There is no neural foraminal stenosis. There is no central canal stenosis. IMPRESSION: 1. Compression fractures of C6, C7, and T1, stable from 02/12/2023, likely subacute or chronic. 2. Moderate cervical spondylosis. Reviewed, dictated and finalized at location A. IAL NEEDS BABYSITTER IMPRESSION: 1. Compression fractures of C6, C7, and T1, stable from 02/12/2023, likely subacu te or chronic. 2. Moderate cervical spondylosis.
--- NOTE | ~2023-03-21 | CT_ITS ---
EXAMINATION: CT brain wo con DATE: 03/21/2023 15:40 INDICATION: Unresponsive TECHNIQUE: Computed tomography (CT) of the head was performed without intravenous contrast. Sagittal and coronal reconstructions were performed. The mA was adjusted according to patient size. Iterative reconstruction technique was employed. The dose-length product was 681.00 mGy-cm. COMPARISON: head CT dated 02/12/2023 FINDINGS: No fracture. Stable appearance of a small to moderate sized region of encephalomalacia in the left oc cipital lobe consistent with sequela of chronic infarct. Additional unchanged small infarct at the pe ricallosal medial right frontal lobe. No acute intracranial hemorrhage, acute infarction or abnormal extra axial fluid collection. There is mild scattered white matter hypoattenuation consistent with ch ronic small vessel ischemic disease. Ventricles are normal and symmetric. No mass/mass effect. Unchan ged complete opacification of the right maxillary sinus. Mucosal thickening and increasing mucus in t he left maxillary sinus. No change in small amount of dependent mucus in the right sphenoid sinus. Ch anges of bilateral intraocular lens replacement. The mastoid air cells are normal. IMPRESSION: 1. No fracture or acute intracranial process. 2. Unchanged old infarcts at the left occipital lobe and pericallosal right frontal lobe. 3. Mild scattered white matter hypoattenuation consistent with chronic small vessel ischemic disease. 2. Persistent sinus disease. Reviewed, dictated and finalized at location A. ER AND TRANSITION TEACHER IMPRESSION: 1. No fracture or acute intracranial process. 2. Unchanged old infarcts at the left occipital lobe and pericallosal right fro ntal lobe. 3. Mild scattered white matter hypoattenuation consistent with chronic small ve ssel ischemic disease. 2. Persistent sinus disease.
--- NOTE | ~2023-03-21 | XR_ITS ---
EXAMINATION: XR chest 1V portable DATE: 03/21/2023 15:13 INDICATION: Unresponsive TECHNIQUE: frontal view of the chest was obtained. COMPARISON: Chest radiograph dated 02/19/2023 FINDINGS: There is persistent mild elevation the left hemidiaphragm. The prior left basilar opacities have reso lved. No focal airspace opacities, pulmonary edema, pleural effusion or pneumothorax. The cardiomedia stinal silhouette is normal. Subacute-appearing comminuted proximal right humeral fracture. IMPRESSION: 1. No acute cardiopulmonary disease. Reviewed, dictated and finalized at location A. BLADE POLISHER
--- NOTE | 2023-03-21 14:47 | ECG_ITS ---
Measurements Intervals [place] Rate: 46 P: 66 MI: 211 QRS: -15 QRSD: 150 T: 128 QT: 527 QTc: 461 Interpretive Statements SINUS BRADYCARDIA WITH FIRST DEGREE AV BLOCK LEFT BUNDLE BRANCH BLOCK [120+ ms QRS DURATION, 80+ ms Q/S IN V1/V2, 85+ ms R IN I/aVL/V5/V6] ABNORMAL ECG COMPARED TO ECG 02/18/2023 05:33:40 HEART RATE IS REDUCED Electronically Signed On 03-21-2023 15:20:10 [employer] SERVICE SALES REPRESENTATIVES by Davion Mckinnon M.D.
--- NOTE | 2023-03-21 14:49 | ED.GENADULT ---
HPI - General Adult General Chief complaint: Altered Mental Status Stated complaint: altered mental status Time Seen by Provider: 03/21/23 14:28 History of Present Illness HPI narrative: 83yo woman, intermediate resident, DNR/DNI, recent cervical spine fracture and clearance of the collar earlier this month, sent from intermediate with report of new onset unresponsiveness, bradycardic, hypotensive. No fever. I spoke with pt's who states she was her normal self when he visited with her last week. Related Data Allergies Allergy/AdvReac Type Severity Reaction Status Date / Time naproxen Allergy Unknown Verified 03/21/23 11:04 Review of Systems Review of Systems: ROS unobtainable: Yes unobtainable due to mental status PMFSH Past Medical History Medical History Ankle pain, right CVA (cerebral vascular accident) Hyperlipidemia Hypertension Hypothyroidism Hypoxic Leukocytosis Peripheral neuropathy Type 2 diabetes mellitus Vitamin D deficiency Surgical History Surgical History History of bilateral tubal ligation Status post cataract extraction of both eyes with insertion of intraocular lens Family History Family History Father Alcoholism Mother Breast cancer Ovarian cancer Social History Social History Social History: Patient lives at home with her of over 60 years. She stated that she briefly smoked for a couple of years when she was young. She denies any significant alcohol use. She ambulates with a Rollator. Code status: DNR/DNI (per patient request) Surrogate decision maker: Smoking status: Never smoker Alcohol intake: never Substance use: never Substance use type: does not use Do You Feel Safe in your Home?: Yes Lack of Transportation: No Lack of Food: Never True Current Housing: I Have Housing Concerned About Future Housing: No Difficulty Paying Gas/Electric Bills: No Difficulty Paying for Meds: No Currently Unemployed: No Education: High School Diploma/GED Difficulty w/ Childcare or Family Care: No Spiritual care concerns: No Exam Const: Nutritional Appearance: well nourished Other: no response to voice, withdraws from venipuncture HENMT: Head: normal to inspection Mouth: Yes dry mucous membranes Other: atraumatic Eyes: Conjunctivae: conjunctivae normal Other: pupils unequal, right 2 mm sluggish nonreactive, left 5 mm nonreactive Resp: Effort & Inspection: normal respiratory effort and not labored Auscultation: clear to auscultation bilaterally Cardio: Rate: bradycardic Rhythm: regular rhythm Other: sinus rhythm, no block GI: Inspection: non-distended GI Palp: Yes Soft to palpation and No Tenderness to palpation present (GI) Skin: General skin exam: normal color, no jaundice and no pallor Neuro: Other: groan and withdraw to pain only Extrem: General: no clubbing, cyanosis or edema Medical Decision Making MDM Narrative Medical decision making narrative: acute sustained loss of consciousness, no report of trauma, screen for organ failure, metabolic derangements, sepsis, intracranial hemorrhage UA positive for infection. Hahn catheter changed. CT unremarkable. Additional IV fluids ordered. Broad spectrum abx ordered after cultures. Critical Care Time Critical Care Time Critical Care Time: Yes Total Critical Care Time: 75 Discharge Plan Discharge Clinical Impression: Severe sepsis, Acute dehydration, Acute renal insufficiency, Acute cystitis without hematuria Patient Disposition: Acute Care Hospital [facility] Condition: Serious Prescriptions: No Action polyethylene glycol 3350 17 gram Powder In Packet 17 g PO QAM Qty: 30 0RF neomycin-p
[2023-03-21 14:58] LABS: Basophils Absolute Auto 0.07 K/mm3 (0.00-0.10); Basophils Percent Auto 0.8 % (0.0-1.0); Eosinophils Absolute Auto 0.45 K/mm3 (0.02-0.50); Eosinophils Percent Auto 4.9 % (1.0-6.0); Hematocrit 35.9 % (35.0-42.0); Hemoglobin 11.2 g/dL (11.7-13.8); Immature Granulocyte Absolute 0.02 K/mm3 (0.00-0.00); Immature Granulocyte Percent A 0.2 % (0.0-0.0); Lymphocytes Absolute Auto 2.37 K/mm3 (1.10-4.50); Lymphocytes Percent Auto 25.8 % (18.0-42.0); Mean Corpuscular HGB Conc 31.2 g/dL (32.0-36.0); Mean Corpuscular Hemoglobin 29.2 pg (27.0-31.0); Mean Corpuscular Volume 93.5 fL (78.0-102.0); Mean Platelet Volume 9.6 fl (9.2-11.8); Monocytes Absolute Auto 0.71 K/mm3 (0.10-0.90); Monocytes Percent Auto 7.7 % (2.0-11.0); Neutrophils Absolute Auto 5.6 K/mm3 (1.7-7.2); Neutrophils Percent Auto 60.6 % (50.0-70.0); Platelet Count Result 270 K/mm3 (150-420); Red Blood Count 3.84 M/mm3 (4.20-5.40); Red Cell Distribution Width 13.8 % (11.6-14.4); White Blood Count 9.2 K/mm3 (4.8-10.8)
[2023-03-21 15:08] LABS: Bilirubin Urine 1+ (Negative); Blood Urine 3+ (Negative); Glucose Urine UA 3+ (Negative); Ketones Urine Trace (Negative); Leukocyte Esterase Ur 2+ LEU/UL (Negative); Nitrate Urine Negative (Negative); Protein Urine 3+ (Negative); Specific Grav Ur 1.025 (1.010-1.020); Urobilinogen Urine 0.2 mg/dL (0.2-1.0)
[2023-03-21 15:17] LABS: Add Urine Microscopic? YES; Appearance Urine Cloudy (Clear); Color Urine Other (Yellow)
[2023-03-21 15:19] LABS: Bacteria Urine 2+ /hpf; WBC Urine >75 /hpf (0-3)
[2023-03-21 15:20] LABS: Lactic Acid Reflex 2.5 mmol/L (0.4-2.0)
[2023-03-21] MEDS: SODIUM CHLORIDE 0.9% IV 1,000 ML 999 ML IV CONT ×2 (15:20→16:08)
[2023-03-21 15:26] LABS: NT Pro B Type Natriuretic Pept 1152 pg/mL (0-450)
[2023-03-21 15:26] LABS: Alanine Aminotransferase 27 U/L (14-59); Albumin Level 2.8 g/dL (3.4-5.0); Alkaline Phosphatase 123 U/L (46-116); Anion Gap 14 mmol/L (8-16); Aspartate Amino Transferase 14 U/L (15-37); Bilirubin,Total 0.3 mg/dL (0.00-1.00); Blood Urea Nitrogen 24 mg/dL (7-18); Calcium 8.9 mg/dL (8.5-10.1); Carbon Dioxide 23 mmol/L (21-32); Chloride 104 mmol/L (98-108); Estimated CRCL calculation 21 ml/min; Estimated Glomerular Filt Rate 26; Glucose 185 mg/dL (70-99); Osmolality Calculated 301 mOsm/kg (285-295); Potassium 4.7 mmol/L (3.5-5.1); Sodium 141 mmol/L (136-145); Total Protein 6.5 g/dL (6.4-8.2)
[2023-03-21 15:27] LABS: Free T4 Free Thyroxine Reflex 1.11 ng/dL (0.76-1.46); Thyroid Stimulating Hormone Reflex 4.38 u/IU/mL (0.36-3.74)
[2023-03-21] MEDS: CEFEPIME 1 GM/NS 50 ML 1 GM/50 ML BAG IVPB (16:00)
[2023-03-21] MEDS: metroNIDAZOLE 500 MG/ISO 100ML 500 MG/100 ML BAG 100 MG IVPB (16:30)
[2023-03-21] MEDS: ACETAMINOPHEN 500 MG TABLET PO (16:40)
[2023-03-21] MEDS: HYDROcodone/acetaminophen (*CRX) 5-325 MG TABLET 1 TAB PO (16:40)
[2023-03-21] MEDS: VANCOMYCIN 1,250 MG/NS 250 ML 1,250 MG/250 ML BAG 200 MG IVPB (17:30)
[2023-03-21 17:57] LABS: Reflex Lactic Acid Yes or No Add Lactic
--- NOTE | 2023-03-21 18:50 | ADMGEN ---
This patient, Nara Post, was admitted to 2nd Floor Room 210-2. Patient/family oriented to hospital policies and general routines including ID bracelet, bed and alarms, visiting hours, pain management, procedures, bathroom and other care routines, personal items, smoking policy, room service/diet, and visiting hours. Information on how to activate the Rapid Response Team has been discussed. Patient/Family are encouraged to report perceived risks to care and to ask questions if they do not understand what they are told or what they should do.
[2023-03-21] MEDS: DEXTROSE 5%/0.45% SOD CHL 1,000 ML 50 ML IV CONT (19:49)
[2023-03-21] MEDS: HEPARIN SODIUM 5,000 UNITS/ML VIAL 5000 UNITS SUB-Q (20:06)
[2023-03-21] MEDS: DOCUSATE SODIUM 100 MG CAPSULE PO (20:09)
[2023-03-21 20:11] LABS: Glucose Point of Care 160 mg/dl (65-105)
[2023-03-22] VITALS (7 sets, daily range): BP systolic 93–126; BP diastolic 35–64; PULSE 57–72; RESP 16–18; TEMP 35.7–36.6; O2SAT 97–99
[2023-03-22 05:25] LABS: Basophils Absolute Auto 0.03 K/mm3 (0.00-0.10); Basophils Percent Auto 0.5 % (0.0-1.0); Eosinophils Absolute Auto 0.28 K/mm3 (0.02-0.50); Eosinophils Percent Auto 4.9 % (1.0-6.0); Hematocrit 31.6 % (35.0-42.0); Hemoglobin 9.9 g/dL (11.7-13.8); Immature Granulocyte Absolute 0.02 K/mm3 (0.00-0.00); Immature Granulocyte Percent A 0.3 % (0.0-0.0); Lymphocytes Percent Auto 29.6 % (18.0-42.0); Mean Corpuscular HGB Conc 31.3 g/dL (32.0-36.0); Mean Corpuscular Hemoglobin 29.5 pg (27.0-31.0); Mean Platelet Volume 9.4 fl (9.2-11.8); Monocytes Absolute Auto 0.42 K/mm3 (0.10-0.90); Monocytes Percent Auto 7.3 % (2.0-11.0); Neutrophils Absolute Auto 3.3 K/mm3 (1.7-7.2); Neutrophils Percent Auto 57.4 % (50.0-70.0); Platelet Count Result 209 K/mm3 (150-420); Red Blood Count 3.36 M/mm3 (4.20-5.40); Red Cell Distribution Width 13.8 % (11.6-14.4); White Blood Count 5.8 K/mm3 (4.8-10.8)
[2023-03-22 05:48] LABS: Alanine Aminotransferase 21 U/L (14-59); Albumin Level 2.5 g/dL (3.4-5.0); Alkaline Phosphatase 108 U/L (46-116); Anion Gap 10 mmol/L (8-16); Aspartate Amino Transferase 14 U/L (15-37); Bilirubin,Total 0.4 mg/dL (0.00-1.00); Blood Urea Nitrogen 22 mg/dL (7-18); Carbon Dioxide 25 mmol/L (21-32); Chloride 107 mmol/L (98-108); Estimated CRCL calculation 26 ml/min; Estimated Glomerular Filt Rate 32; Glucose 135 mg/dL (70-99); NT Pro B Type Natriuretic Pept 676 pg/mL (0-450); Osmolality Calculated 299 mOsm/kg (285-295); Sodium 142 mmol/L (136-145); Total Protein 5.8 g/dL (6.4-8.2)
[2023-03-22 05:52] LABS: Lactic Acid 0.7 mmol/L (0.4-2.0)
--- NOTE | 2023-03-22 08:02 | PM.IMHP ---
H&P: HPI History of Present Illness Date/Time: 03/22/23 08:02 Chief Complaint: sepsis, UTI, altered LOC Narrative: This is an 83-year-old female patient who was admitted to the hospital for severe sepsis related to urinary tract infection that was accompanied by altered mental status, bradycardia and hypotension. Patient was recently admitted to our facility for swing bed and was transitioned to snf in the last couple of weeks. She has had a Hahn catheter in place for about a month related to urinary retention. Patient was in the restroom at the snf when she passed out was found to have altered level of consciousness and low blood pressure. Patient does have a history of seizure with seizure activity was not plainly evident. Patient has a history of a recent right upper extremity proximal humerus fracture from a fall in January 2023 as well as compression fractures in the cervical and thoracic spine. Patient was recently cleared from [place] [facility] collar and right arm sling. While in the emergency department urinary catheter was changed. She received fluid resuscitation and broad-spectrum IV antibiotics. Imaging chest abdomen pelvis as well as cervical spine were completed. No pneumonia no intra-abdominal infection on imaging. Patient remains on Eliquis for recent PE. While undergoing workup for PE she was found to be in significant combined diastolic and systolic heart failure with an EF of about 35% and grade 3 diastolic dysfunction as well as pulmonary hypertension. Thus, fluid resuscitation was conservative and patient was admitted on IV fluids at 50 mL/hr. Since admission blood pressure has been running on the low side about 100/50. Patient is awake alert oriented to usual status. She complains of dizziness and a headache. CT scan of the brain was unremarkable no signs of bleeding in the ER. Patient is eating breakfast but has a low appetite. She denies any difficulty breathing chest pain nausea vomiting constipation diarrhea abdominal pain leg swelling or any other concerning symptoms. Initial labs in the ER showed GI on CKD with a creatinine 1.8 and then estimated GFR of 26. This morning creatinine is 1.54 with an estimated GFR 32 which appears to be closer to baseline in the 30s. Patient does not appear to be fluid overloaded and proBNP is actually lower this morning than it was yesterday in the ER. In February patient had urinary tract infection that was growing E coli pansensitive except intermediate coverage with fluoroquinolones. She completed course of antibiotics at that time. We will give high-dose Rocephin pending urine cultures. We may also attempt another voiding trial in the next day or 2. For the meantime we will hold antihypertensives/spironolactone and continue fluids at a low rate and monitor for any signs of fluid overload/congestive heart failure. The goal will be to restart spironolactone and Entresto whenever blood pressure is stable. Will probably hold metoprolol due to bradycardia unless she becomes tachycardic or AFib RVR. She remains on director of cardiac rehabilitation at this time in a sinus rhythm rate in the 60s per my interpretation. Patient does have a history of atrial fibrillation but is not currently in fibrillation. Patient is DNR/DNI but not comfort measures only. Review of Systems Review of Systems: All systems reviewed & are unremarkable except as noted in HPI and below PMFSH Past Medical History Medical History Ankle pain, right Chronic combined systolic and diastolic CHF (congestive heart failure) CVA (cerebral vascular accident) History of seizure Hyperlipidemia Hypertension Hypothyroidism Hypoxic Leukocytosis Peripheral neuropathy Type 2 diabetes mellitus Vitamin D deficiency Surgical History Surgical History History of bilateral tubal ligation Status post cataract extract
[2023-03-22 08:17] LABS: Glucose Point of Care 111 mg/dl (65-105)
[2023-03-22] MEDS: INSULIN HUMAN LISPRO (*BKC) 1,000 UNITS/10 ML VIAL 4 UNITS SUB-Q ×2 (09:00→16:38)
[2023-03-22] MEDS: cefTRIAXone 2 GM/NS 100 ML 2 GM/100 ML BAG IVPB (09:57)
[2023-03-22] MEDS: polyethylene glycoL 3350 17 GM POWD.PACK PO (09:57)
[2023-03-22] MEDS: levETIRAcetam 500 MG TABLET PO ×2 (09:58→20:20)
[2023-03-22] MEDS: MONTELUKAST SODIUM 10 MG TABLET PO (09:58)
[2023-03-22] MEDS: CHOLECALCIFEROL 1,000 UNITS TABLET 1000 UNITS PO (09:58)
[2023-03-22] MEDS: SPIRONOLACTONE 25 MG TABLET PO (09:58)
[2023-03-22] MEDS: VENLAFAXINE HCL XR 75 MG CAP.ER.24H PO (09:58)
[2023-03-22] MEDS: MIRABEGRON 25 MG ER TABLET 50 MG PO (09:58)
[2023-03-22] MEDS: EMPAGLIFLOZIN 10 MG TABLET PO (09:58)
[2023-03-22] MEDS: METOPROLOL SUCCINATE EXT REL 25 MG TABCR PO (09:59)
[2023-03-22] MEDS: DOCUSATE SODIUM 100 MG CAPSULE PO ×2 (09:59→20:20)
[2023-03-22] MEDS: LEVOTHYROXINE SODIUM 75 MCG TABLET PO (09:59)
[2023-03-22] MEDS: APIXABAN 2.5 MG TABLET 5 MG BY MOUTH ×2 (09:59→20:20)
[2023-03-22] MEDS: LACTATED RINGERS 1,000 ML 50 ML IV CONT (10:00)
[2023-03-22 11:51] LABS: Glucose Point of Care 163 mg/dl (65-105)
[2023-03-22 16:38] LABS: Glucose Point of Care 170 mg/dl (65-105)
[2023-03-22] MEDS: GABAPENTIN 100 MG CAPSULE PO (20:20)
[2023-03-22] MEDS: ATORVASTATIN 40 MG TABLET 80 MG PO (20:20)
[2023-03-22 20:25] LABS: Glucose Point of Care 153 mg/dl (65-105)
[2023-03-23] VITALS: BP 126/38; PULSE 72; RESP 16; TEMP 36.1; O2SAT 98
[2023-03-23 04:00] VITALS: BP 120/49; PULSE 70; RESP 16; TEMP 36.2; O2SAT 97
[2023-03-23 05:25] LABS: Basophils Absolute Auto 0.05 K/mm3 (0.00-0.10); Eosinophils Absolute Auto 0.34 K/mm3 (0.02-0.50); Eosinophils Percent Auto 6.6 % (1.0-6.0); Hematocrit 33.1 % (35.0-42.0); Hemoglobin 10.2 g/dL (11.7-13.8); Immature Granulocyte Absolute 0.02 K/mm3 (0.00-0.00); Immature Granulocyte Percent A 0.4 % (0.0-0.0); Lymphocytes Absolute Auto 1.32 K/mm3 (1.10-4.50); Lymphocytes Percent Auto 25.6 % (18.0-42.0); Mean Corpuscular HGB Conc 30.8 g/dL (32.0-36.0); Mean Corpuscular Hemoglobin 28.7 pg (27.0-31.0); Mean Corpuscular Volume 93.2 fL (78.0-102.0); Mean Platelet Volume 9.2 fl (9.2-11.8); Monocytes Absolute Auto 0.39 K/mm3 (0.10-0.90); Monocytes Percent Auto 7.6 % (2.0-11.0); Neutrophils Percent Auto 58.8 % (50.0-70.0); Platelet Count Result 223 K/mm3 (150-420); Red Blood Count 3.55 M/mm3 (4.20-5.40); Red Cell Distribution Width 13.6 % (11.6-14.4); White Blood Count 5.2 K/mm3 (4.8-10.8)
[2023-03-23 05:42] LABS: Alanine Aminotransferase 23 U/L (14-59); Albumin Level 2.4 g/dL (3.4-5.0); Alkaline Phosphatase 118 U/L (46-116); Anion Gap 9 mmol/L (8-16); Aspartate Amino Transferase 11 U/L (15-37); Bilirubin,Total 0.2 mg/dL (0.00-1.00); Blood Urea Nitrogen 19 mg/dL (7-18); Calcium 8.4 mg/dL (8.5-10.1); Carbon Dioxide 25 mmol/L (21-32); Chloride 107 mmol/L (98-108); Estimated CRCL calculation 31 ml/min; Estimated Glomerular Filt Rate 40; Glucose 118 mg/dL (70-99); Magnesium 1.7 mg/dL (1.8-2.4); Osmolality Calculated 295 mOsm/kg (285-295); Potassium 4.4 mmol/L (3.5-5.1); Sodium 141 mmol/L (136-145); Total Protein 5.7 g/dL (6.4-8.2)
[2023-03-23] MEDS: LEVOTHYROXINE SODIUM 75 MCG TABLET PO (06:03)
[2023-03-23 08:00] VITALS: BP 128/58; PULSE 70; PULSE 74; RESP 18; TEMP 36.6; O2SAT 97
[2023-03-23 08:05] LABS: Glucose Point of Care 127 mg/dl (65-105)
[2023-03-23] MEDS: polyethylene glycoL 3350 17 GM POWD.PACK PO (08:47)
[2023-03-23] MEDS: MIRABEGRON 25 MG ER TABLET 50 MG PO (08:47)
[2023-03-23] MEDS: DOCUSATE SODIUM 100 MG CAPSULE PO ×2 (08:48→20:38)
[2023-03-23] MEDS: levETIRAcetam 500 MG TABLET PO (08:48)
[2023-03-23] MEDS: SPIRONOLACTONE 25 MG TABLET PO (08:48)
[2023-03-23] MEDS: VENLAFAXINE HCL XR 75 MG CAP.ER.24H PO (08:48)
[2023-03-23] MEDS: APIXABAN 2.5 MG TABLET 5 MG BY MOUTH ×2 (08:48→20:38)
[2023-03-23] MEDS: CHOLECALCIFEROL 1,000 UNITS TABLET 1000 UNITS PO (08:48)
[2023-03-23] MEDS: MONTELUKAST SODIUM 10 MG TABLET PO (08:48)
[2023-03-23] MEDS: EMPAGLIFLOZIN 10 MG TABLET PO (08:49)
[2023-03-23] MEDS: INSULIN GLARGINE (*BKC) 1,000 UNITS/10 ML VIAL 34 UNITS SUB-Q (08:51)
[2023-03-23] MEDS: cefTRIAXone 2 GM/NS 100 ML 2 GM/100 ML BAG IVPB (08:51)
[2023-03-23] MEDS: INSULIN HUMAN LISPRO (*BKC) 1,000 UNITS/10 ML VIAL 4 UNITS SUB-Q (08:51)
--- NOTE | 2023-03-23 11:25 | PM.IMPN ---
Progress Note: A&P Assessment and Plan (1) Seizure: Code(s): R56.9 - Unspecified convulsions Status: Acute Assessment and Plan: 03/23: Patient had aura/prodrome then an episode of altered consciousness that lasted about 20 minutes. Patient was drowsy, near syncope and slowed responses. When patient came back around she did not know what happened. This was non-provoked. Suspect partial seizure. Will give IV Keppra then increase oral dosing starting tonight. (2) Severe sepsis: Code(s): A41.9 - Sepsis, unspecified organism; R65.20 - Severe sepsis without septic shock Status: Acute Assessment and Plan: Hypotension with altered LOC, increased lactic acid and findings to suggest UTI on UA. Patient initially treated with Vanc, cefepime and Flagyl in ER. Imaging negative for pneumonia or intraabdominal infection. UA consistent with UTI and prior UTI was E. coli pansensitive except for Intermediate to fluroquinolones. Ordered Rocephin 2g Q24H pending urine culture results. 03/23: Vitals better. No fever. Continue Rocephin. E. coli growing in urine, awaiting sensitivities. (3) Acute UTI: Code(s): N39.0 - Urinary tract infection, site not specified Status: Acute Assessment and Plan: Chronic retention failed prior voiding trial and has had Hahn in place for about a month. This was changed in ER yesterday with evidence of UTI. Prior urine culture was E. coli. Rocephin 2g Q24H pending final culture before discharge. May attempt another voiding trial on this hospitalization. 03/23: Vitals better. No fever. Continue Rocephin. E. coli growing in urine, awaiting sensitivities. (4) Bradycardia: Code(s): R00.1 - Bradycardia, unspecified Status: Acute Assessment and Plan: Bradycardic and hypotensive on ER arrival. Hold metoprolol unless patient becomes tachycardic or AFib RVR 03/23: metoprolol order canceled, will plan discontinue on discharge (5) Acute kidney injury superimposed on CKD: Code(s): N17.9 - Acute kidney failure, unspecified; N18.9 - Chronic kidney disease, unspecified Status: Acute Assessment and Plan: 03/22: GI on CKD noted on ER visit, likely combination UTI and dehydration/sepsis related. eGFR 26 on ER visit and 32 this morning with AM labs. Baseline appears to be in the 30s from prior results documented. 03/23: eGFR up to 40. (6) Type 2 diabetes mellitus: Qualifiers: Chronic kidney disease stage: stage 3 (moderate) Chronic kidney disease stage 3 subtype: unspecified whether 3a or 3b Diabetes mellitus complication detail: with chronic kidney disease Diabetes mellitus complication status: with kidney complications Diabetes mellitus penitentiary insulin use: with penitentiary use Qualified Code(s): E11.22 - Type 2 diabetes mellitus with diabetic chronic kidney disease; N18.30 - Chronic kidney disease, stage 3 unspecified; Z79.4 - medical terminologist (current) use of insulin Code(s): E11.9 - Type 2 diabetes mellitus without complications Status: Chronic Assessment and Plan: ACHS fingerstick glucose and carb controlled diet. SSI plus basal and mealtime dosing consistent with prior regimen on last admission. (7) Urinary retention: Code(s): R33.9 - Retention of urine, unspecified Status: Chronic Assessment and Plan: Chronic retention failed prior voiding trial and has had Hahn in place for about a month. This was changed in ER yesterday with evidence of UTI. Prior urine culture was E. coli. Rocephin 2g Q24H pending final culture before discharge. May attempt another voiding trial on this hospitalization. 03/23: Voiding trial planned today, delayed due to probable seizure. (8) Chronic combined systolic and diastolic CHF (congestive heart failure): Code(s): I50.42 - Chronic combined systolic (congestive) and diastolic (congestive) heart failure Status: Chronic Assessment an
[2023-03-23 11:49] LABS: Glucose Point of Care 168 mg/dl (65-105)
[2023-03-23 12:00] VITALS: PULSE 68
[2023-03-23] MEDS: ONDANSETRON INJ 4 MG/2 ML VIAL IV PUSH (12:35)
[2023-03-23 12:37] LABS: Glucose Point of Care 165 mg/dl (65-105)
[2023-03-23] MEDS: levETIRAcetam 1000MG/NACL100ML 1,000 MG/100 ML BAG 400 MG IVPB (14:05)
--- NOTE | 2023-03-23 14:29 | PC.NURSE ---
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 c/o not feeling well. once in room patient is rouse. can hardly keep eyes open. denies any specific pains or n/v. I just don't feel right. vs: 78-18-116/54-96% ra. bs 165. did not eat lunch. attempt to get gait belt on patient and she goes limp against nurse. pushed backwards in chair. eyes closed and no response. name called and shoulders shook. did then start to respond. sluggish. [facility] now at side. 1235 does c/o of nausea. iv zofran given. will answer but very slow to respond. Vs: 135/83-99-96-97-98%. neuro checks. done l eye larger than r. able to move all extermies. hardly will open eyes. 1245 112/46-68-16-98%. eyes open at this time. wants to know what happened and why everyone was here. claims to be weak and feels wore out. 1300 up with 2 assist and gordon walker to bed. claims legs feel like jelly. awake talking color is warm and pink. claims she is just wore out. does drift off to sleep if not talking. sr on tele. 110/62/16/98.2-98% ra.
[2023-03-23 16:00] VITALS: BP 125/49; PULSE 73; RESP 16; TEMP 36.4; O2SAT 94
--- NOTE | 2023-03-23 16:27 | PCPTNOTE ---
pt not seen in pm per nursing due to having a seizure.
[2023-03-23 16:51] LABS: Glucose Point of Care 104 mg/dl (65-105)
--- NOTE | 2023-03-23 18:24 | PC.NURSE ---
Mipelex applied to left arm elbow area to protect rough area.
--- NOTE | 2023-03-23 18:39 | PC.NURSE ---
Bladder scanned after voiding 300 ml and 99 ml was found to be remaining in bladder per scan.
[2023-03-23 20:00] VITALS: PULSE 75
[2023-03-23] MEDS: SACUBITRIL/VALSARTAN 24-26 MG TABLET 1 TAB PO (20:38)
[2023-03-23] MEDS: levETIRAcetam 500 MG TABLET 1000 MG PO (20:38)
[2023-03-23] MEDS: ATORVASTATIN 40 MG TABLET 80 MG PO (20:38)
[2023-03-23] MEDS: GABAPENTIN 100 MG CAPSULE PO (20:38)
[2023-03-23 20:43] LABS: Glucose Point of Care 152 mg/dl (65-105)
--- NOTE | 2023-03-23 22:12 | PC.NURSE ---
Patient voided successfully after catheter removal. Bladder scanned after void. Remaining amount of urine in bladder was 55ml. No c/o pain or discomfort voiced by Pt.
--- NOTE | 2023-03-23 22:48 | PC.NURSE ---
Pt bladder scanned after voiding on the bedside commode. 3rd bladder scan after meyer removed. Remaining urine in bladder was 16ml.
[2023-03-24] VITALS: BP 130/51; PULSE 67; PULSE 73; RESP 16; TEMP 36.6; O2SAT 93
[2023-03-24] MEDS: HYDROcodone/acetaminophen (*CRX) 5-325 MG TABLET 1 TAB PO (01:01)
[2023-03-24 04:00] VITALS: PULSE 73
[2023-03-24 05:18] LABS: Basophils Absolute Auto 0.06 K/mm3 (0.00-0.10); Basophils Percent Auto 1.2 % (0.0-1.0); Eosinophils Absolute Auto 0.32 K/mm3 (0.02-0.50); Eosinophils Percent Auto 6.3 % (1.0-6.0); Hematocrit 33.5 % (35.0-42.0); Hemoglobin 10.2 g/dL (11.7-13.8); Immature Granulocyte Absolute 0.02 K/mm3 (0.00-0.00); Immature Granulocyte Percent A 0.4 % (0.0-0.0); Lymphocytes Absolute Auto 1.76 K/mm3 (1.10-4.50); Lymphocytes Percent Auto 34.4 % (18.0-42.0); Mean Corpuscular HGB Conc 30.4 g/dL (32.0-36.0); Mean Corpuscular Volume 95.2 fL (78.0-102.0); Mean Platelet Volume 9.3 fl (9.2-11.8); Monocytes Absolute Auto 0.45 K/mm3 (0.10-0.90); Monocytes Percent Auto 8.8 % (2.0-11.0); Neutrophils Absolute Auto 2.5 K/mm3 (1.7-7.2); Neutrophils Percent Auto 48.9 % (50.0-70.0); Platelet Count Result 216 K/mm3 (150-420); Red Blood Count 3.52 M/mm3 (4.20-5.40); Red Cell Distribution Width 13.8 % (11.6-14.4); White Blood Count 5.1 K/mm3 (4.8-10.8)
[2023-03-24 05:35] LABS: Alanine Aminotransferase 9 U/L (14-59); Albumin Level 2.4 g/dL (3.4-5.0); Alkaline Phosphatase 105 U/L (46-116); Anion Gap 9 mmol/L (8-16); Aspartate Amino Transferase 16 U/L (15-37); Bilirubin,Total 0.2 mg/dL (0.00-1.00); Blood Urea Nitrogen 18 mg/dL (7-18); Calcium 8.4 mg/dL (8.5-10.1); Carbon Dioxide 25 mmol/L (21-32); Chloride 105 mmol/L (98-108); Estimated CRCL calculation 30 ml/min; Estimated Glomerular Filt Rate 39; Glucose 112 mg/dL (70-99); Magnesium 1.9 mg/dL (1.8-2.4); Osmolality Calculated 290 mOsm/kg (285-295); Potassium 4.6 mmol/L (3.5-5.1); Sodium 139 mmol/L (136-145); Total Protein 5.7 g/dL (6.4-8.2)
[2023-03-24] MEDS: LEVOTHYROXINE SODIUM 75 MCG TABLET PO (06:01)
--- NOTE | 2023-03-24 07:26 | PM.DS ---
DS: Admitting Diagnosis Discharge Date 03/24/2023 Admitting Diagnosis severe sepsis, acute uti, bradycardia, gi on ckd, type 2 DM, urinary retention, combined systolic and diastolic CHF, PE, history of seizure, HTN DS: Discharge Diagnosis Discharge Diagnosis (1) Seizure: Code(s): R56.9 - Unspecified convulsions Status: Acute Assessment and Plan: 03/23: Patient had aura/prodrome then an episode of altered consciousness that lasted about 20 minutes. Patient was drowsy, near syncope and slowed responses. When patient came back around she did not know what happened. This was non-provoked. Suspect partial seizure. Will give IV Keppra then increase oral dosing starting tonight. 03/24: Family clarified that patient has history of absence seizures which fit the picture of event yesterday. No recurrence with increased Keppra dosing. (2) Severe sepsis: Code(s): A41.9 - Sepsis, unspecified organism; R65.20 - Severe sepsis without septic shock Status: Acute Assessment and Plan: Hypotension with altered LOC, increased lactic acid and findings to suggest UTI on UA. Patient initially treated with Vanc, cefepime and Flagyl in ER. Imaging negative for pneumonia or intraabdominal infection. UA consistent with UTI and prior UTI was E. coli pansensitive except for Intermediate to fluroquinolones. Ordered Rocephin 2g Q24H pending urine culture results. 03/23: Vitals better. No fever. Continue Rocephin. E. coli growing in urine, awaiting sensitivities. (3) Acute UTI: Code(s): N39.0 - Urinary tract infection, site not specified Status: Acute Assessment and Plan: Chronic retention failed prior voiding trial and has had Hahn in place for about a month. This was changed in ER yesterday with evidence of UTI. Prior urine culture was E. coli. Rocephin 2g Q24H pending final culture before discharge. May attempt another voiding trial on this hospitalization. 03/23: Vitals better. No fever. Continue Rocephin. E. coli growing in urine, awaiting sensitivities. 03/24: Same sensitivity as prior results, DC on Keflex 500 mg BID for 5 more days. (4) Bradycardia: Code(s): R00.1 - Bradycardia, unspecified Status: Acute Assessment and Plan: Bradycardic and hypotensive on ER arrival. Hold metoprolol unless patient becomes tachycardic or AFib RVR 03/23: metoprolol order canceled, will plan discontinue on discharge (5) Acute kidney injury superimposed on CKD: Code(s): N17.9 - Acute kidney failure, unspecified; N18.9 - Chronic kidney disease, unspecified Status: Acute Assessment and Plan: 03/22: GI on CKD noted on ER visit, likely combination UTI and dehydration/sepsis related. eGFR 26 on ER visit and 32 this morning with AM labs. Baseline appears to be in the 30s from prior results documented. 03/23: eGFR up to 40. (6) Type 2 diabetes mellitus: Qualifiers: Chronic kidney disease stage: stage 3 (moderate) Chronic kidney disease stage 3 subtype: unspecified whether 3a or 3b Diabetes mellitus complication detail: with chronic kidney disease Diabetes mellitus complication status: with kidney complications Diabetes mellitus alf insulin use: with alf use Qualified Code(s): E11.22 - Type 2 diabetes mellitus with diabetic chronic kidney disease; N18.30 - Chronic kidney disease, stage 3 unspecified; Z79.4 - prison (current) use of insulin Code(s): E11.9 - Type 2 diabetes mellitus without complications Status: Chronic Assessment and Plan: ACHS fingerstick glucose and carb controlled diet. SSI plus basal and mealtime dosing consistent with prior regimen on last admission. (7) Urinary retention: Code(s): R33.9 - Retention of urine, unspecified Status: Chronic Assessment and Plan: Chronic retention failed prior voiding trial and has had Hahn in place for about a month. This was changed in ER yesterday wit
[2023-03-24 08:00] VITALS: BP 123/55; PULSE 67; PULSE 71; RESP 16; TEMP 35.8; O2SAT 97
[2023-03-24 08:27] LABS: Glucose Point of Care 110 mg/dl (65-105)
[2023-03-24] MEDS: cefTRIAXone 2 GM/NS 100 ML 2 GM/100 ML BAG IVPB (09:57)
[2023-03-24] MEDS: MIRABEGRON 25 MG ER TABLET 50 MG PO (09:58)
[2023-03-24] MEDS: SACUBITRIL/VALSARTAN 24-26 MG TABLET 1 TAB PO (09:58)
[2023-03-24] MEDS: SPIRONOLACTONE 25 MG TABLET PO (09:58)
[2023-03-24] MEDS: DOCUSATE SODIUM 100 MG CAPSULE PO (09:59)
[2023-03-24] MEDS: CHOLECALCIFEROL 1,000 UNITS TABLET 1000 UNITS PO (09:59)
[2023-03-24] MEDS: MONTELUKAST SODIUM 10 MG TABLET PO (09:59)
[2023-03-24] MEDS: APIXABAN 2.5 MG TABLET 5 MG BY MOUTH (09:59)
[2023-03-24] MEDS: VENLAFAXINE HCL XR 75 MG CAP.ER.24H PO (09:59)
[2023-03-24] MEDS: EMPAGLIFLOZIN 10 MG TABLET PO (09:59)
[2023-03-24] MEDS: levETIRAcetam 500 MG TABLET 1000 MG PO (09:59)
[2023-03-24] MEDS: INSULIN GLARGINE (*BKC) 1,000 UNITS/10 ML VIAL 34 UNITS SUB-Q (10:02)
[2023-03-24 11:42] LABS: Glucose Point of Care 175 mg/dl (65-105)
[2023-03-24 12:00] VITALS: PULSE 70
--- NOTE | 2023-03-24 13:50 | PC.NURSE ---
Called pt's daughter to give update about discharge. All questions answered.
--- NOTE | 2023-03-24 14:05 | PC.NURSE ---
Report called to [facility] at [facility]. Pt taken via wheelchair by SN&R staff.
--- NOTE | 2023-03-28 10:18 | PC.NURSE ---
Dc to [facility] 03/24/23, no questions from [facility] staff
== END 2023-03-24 14:05 | DRG 871 ==
LOC: CHSED 16:37 → CHS2ND 17:53
PROVIDERS: Nurse Practitioner; Admitting Provider Internal Medicine; Emergency Provider Emergency Medicine; PCP Family Medicine; Visit Provider Internal Medicine
DX: A41.9 Sepsis, unspecified organism (principal); N30.00 Acute cystitis without hematuria; R65.20 Severe sepsis without septic shock; E86.0 Dehydration; N28.9 Disorder of kidney and ureter, unspecified; I10 Essential (primary) hypertension; E03.9 Hypothyroidism, unspecified; E78.5 Hyperlipidemia, unspecified; E11.42 Type 2 diabetes mellitus with diabetic polyneuropathy; E55.9 Vitamin D deficiency, unspecified; R65.21 Severe sepsis with septic shock; N39.0 Urinary tract infection, site not specified; I13.0 Hypertensive heart and chronic kidney disease with heart failure and stage 1 through stage 4 chronic kidney disease, or unspecified chronic kidney disease; I50.42 Chronic combined systolic (congestive) and diastolic (congestive) heart failure; I48.20 Chronic atrial fibrillation, unspecified; N17.9 Acute kidney failure, unspecified; S12.9XXD Fracture of neck, unspecified, subsequent encounter; N18.30 Chronic kidney disease, stage 3 unspecified; R33.9 Retention of urine, unspecified; B96.20 Unspecified Escherichia coli [E. coli] as the cause of diseases classified elsewhere; G40.A09 Absence epileptic syndrome, not intractable, without status epilepticus; I95.9 Hypotension, unspecified; I27.20 Pulmonary hypertension, unspecified; W19.XXXD Unspecified fall, subsequent encounter; S22.009D Unspecified fracture of unspecified thoracic vertebra, subsequent encounter for fracture with routine healing; S42.201D Unspecified fracture of upper end of right humerus, subsequent encounter for fracture with routine healing; Z79.01 Long term (current) use of anticoagulants; Z86.711 Personal history of pulmonary embolism; Z79.4 Long term (current) use of insulin
CPT/HCPCS: 36415; 70450; 71045; 71250; 72125; 74176; 80053; 81001; 82948; 83605; 83735; 83880; 84439; 84443; 85025; 87040; 87077; 87086; 87088; 87186; 93005; 96361; 96365; 97161; 97165; 97530; 97535; 99285; A9270; J0692; J0696; J1644; J1815; J1836; J1953; J2405; J3370; J7030; J7120

== ENCOUNTER 2023-07-15 00:29 | Inpatient (IN) | payer MEDICARE, SELFPAY ==
[2023-07-15] VITALS (13 sets, daily range): BP systolic 103–141; BP diastolic 43–66; PULSE 77–105; RESP 16–27; TEMP 36.4–37.1; O2SAT 90–96; BMI 29.9
--- NOTE | ~2023-07-15 | US_ITS ---
US renal BI Ordering provider: Beto Jimenez APRN History: . hakan on CKD . Comparison: None. Technique: Ultrasound bilateral kidneys. Findings: RIGHT KIDNEY: Measures 7.7x 3.5x 4.1 cm in length which is atrophic.. No renal cysts. No renal mass o r visualized echogenic stones. Otherwise, normal echotexture and contour. No hydronephrosis. Normal r enal cortical thickness. LEFT KIDNEY: Measures 8.4x 3.3x 5.5 cm in length which is atrophic. No renal cysts. No renal mass or visualized echogenic stones. Otherwise, normal echotexture and contour. No hydronephrosis. Normal zari al cortical thickness. BLADDER: Normal. Ureteral jets were not seen bilaterally. Distended gallbladder with stones. Cornejo's sign is negative. Wall is normal. IMPRESSION: Atrophic kidneys. Cholelithiasis. Reviewed, dictated and finalized at location A.
--- NOTE | ~2023-07-15 | XR_ITS ---
Portable chest x-ray Comparison: 03/21/2023 Clinical History: Weakness Findings: Lungs are clear, without focal consolidation or pleural effusion. Cardiomediastinal silho uette is stable. Chronic fracture deformity of the surgical neck of the right humerus is similar to p rior exam, possibly healed.. Impression: Clear lungs. Probable chronic, possibly healed, fracture deformity of the surgical neck of the proximal right anra valerie. Reviewed, dictated and finalized at location M. Impression: Clear lungs. Probable chronic, possibly healed, fracture deformity of the surgical neck of t he proximal right humerus.
--- NOTE | 2023-07-15 00:45 | ECG_ITS ---
Test Date: 2023-07-15 01:11:41 Measurements Intervals Howard Rate: 103 P: 53 AR: 174 QRS: -33 QRSD: 148 T: 122 QT: 355 QTc: 466 Interpretive Statements SINUS TACHYCARDIA LEFT AXIS DEVIATION [QRS AXIS < -30] LEFT BUNDLE BRANCH BLOCK [120+ ms QRS DURATION, 80+ ms Q/S IN V1/V2, 85+ ms R IN I/aVL/V5/V6] No previous ECG available for comparison Electronically Signed On 07-19-2023 10:37:12 CDT by Yvonne Ayala M.D.
--- NOTE | 2023-07-15 00:59 | PC.NURSE ---
lab at the bedside drawing blood. xray outside of room.
[2023-07-15] MEDS: SODIUM CHLORIDE 0.9% IV 1,000 ML 999 ML IV CONT (01:03)
[2023-07-15] MEDS: ACETAMINOPHEN 325 MG TABLET 650 MG PO (01:04)
[2023-07-15 01:06] LABS: Basophils Absolute Auto 0.04 K/mm3 (0.00-0.10); Basophils Percent Auto 0.5 % (0.0-1.0); Eosinophils Absolute Auto 0.05 K/mm3 (0.02-0.50); Eosinophils Percent Auto 0.7 % (1.0-6.0); Hematocrit 36.2 % (35.0-42.0); Hemoglobin 11.7 g/dL (11.7-13.8); Immature Granulocyte Absolute 0.04 K/mm3 (0.00-0.00); Immature Granulocyte Percent A 0.5 % (0.0-0.0); Lymphocytes Absolute Auto 0.71 K/mm3 (1.10-4.50); Lymphocytes Percent Auto 9.5 % (18.0-42.0); Mean Corpuscular HGB Conc 32.3 g/dL (32-36); Mean Corpuscular Hemoglobin 29.2 pg (27.0-31.0); Mean Corpuscular Volume 90.3 fL (78.0-102.0); Mean Platelet Volume 8.9 fl (9.2-11.8); Monocytes Absolute Auto 0.64 K/mm3 (0.10-0.90); Monocytes Percent Auto 8.6 % (2.0-11.0); Neutrophils Absolute Auto 5.96 K/mm3 (1.70-7.20); Neutrophils Percent Auto 80.2 % (50.0-70.0); Platelet Count Result 214 K/mm3 (150-420); Red Blood Count 4.01 M/mm3 (4.20-5.40); Red Cell Distribution Width 14.1 % (11.6-14.4); White Blood Count 7.4 K/mm3 (4.8-10.8)
--- NOTE | 2023-07-15 01:16 | ED.WEAKNESS ---
HPI - Weakness General Chief complaint: Weakness Stated complaint: weakness, lethargy Time Seen by Provider: 07/15/23 00:35 Source: patient, family and EMS Mode of arrival: EMS Limitations: physical limitation History of Present Illness HPI Narrative: This is a 83-year-old female from from [facility] brought in by EMS, called by staff for generalized weakness and difficulty standing patient felt warm subjectively but otherwise denies any shortness of breath no chest pain does have some suprapubic tenderness with no hematuria no dysuria no flank pain no nausea vomiting no diarrhea or constipation. Patient has a history of diabetes hypothyroidism hyperlipidemia depression. Complaint: generalized weakness Onset (ago): hour(s) Duration: constant Location: generalized Severity: moderate Related Data Home Medications Medication Instructions Recorded Confirmed atorvastatin 80 mg tablet 80 mg PO HS 03/21/23 07/15/23 lamotrigine 25 mg tablet See Rx Instructions .Route .COMPLEX 07/15/23 07/15/23 Allergies Allergy/AdvReac Type Severity Reaction Status Date / Time naproxen Allergy Unknown Verified 03/21/23 16:57 Review of Systems Review of Systems: All systems reviewed & are unremarkable except as noted in HPI and below PMFSH Past Medical History Medical History Ankle pain, right Chronic combined systolic and diastolic CHF (congestive heart failure) CVA (cerebral vascular accident) History of seizure Hyperlipidemia Hypertension Hypothyroidism Hypoxic Leukocytosis Peripheral neuropathy Type 2 diabetes mellitus Vitamin D deficiency Surgical History Surgical History History of bilateral tubal ligation Status post cataract extraction of both eyes with insertion of intraocular lens Family History Family History Father Alcoholism Mother Breast cancer Ovarian cancer Social History Social History Social History: Patient lives at home with her of over 60 years. She stated that she briefly smoked for a couple of years when she was young. She denies any significant alcohol use. She ambulates with a Rollator. Code status: DNR/DNI (per patient request) Surrogate decision maker: Smoking status: Never smoker Second hand tobacco smoke exposure: No Alcohol intake: never Substance use: never Substance use type: does not use Do You Feel Safe in your Home?: Yes Lack of Transportation: No Lack of Food: Never True Current Housing: I Have Housing Concerned About Future Housing: No Difficulty Paying Gas/Electric Bills: No Difficulty Paying for Meds: No Currently Unemployed: No Education: High School Diploma/GED Difficulty w/ Childcare or Family Care: No Spiritual care concerns: No Exam Const: General: no acute distress and alert Nutritional Appearance: well nourished Orientation/consciousness: patient oriented x3 Limitations: no limitations HENMT: Head: normal to inspection Eyes: Conjunctivae: conjunctivae normal Pupils: Equal, round and reactive pupils present Neck: Neck: normal visual inspection, no lymphadenopathy and no meningeal signs Chest: Chest palpation & inspection: normal inspection of the chest Resp: Effort & Inspection: normal respiratory effort Auscultation: clear to auscultation bilaterally Cardio: Rate: regular rate Rhythm: regular rhythm GI: GI Palp: Yes Soft to palpation Auscultation: normal bowel sounds : General: Yes Bladder palpation abnormal and Yes no CVA tenderness Urinary Catheter: Urinary Catheter: patent and draining Back/Spine/Pelvis: Back: no CVA tenderness Skin: General skin exam: normal color Rashes: no rashes Wounds: no wounds Neuro: General: patient oriented
[2023-07-15 01:31] LABS: Alanine Aminotransferase 28 U/L (14-59); Albumin Level 3.3 g/dL (3.4-5.0); Alkaline Phosphatase 90 U/L (46-116); Anion Gap 9 mmol/L (4-12); Aspartate Amino Transferase 18 U/L (15-37); Bilirubin,Total 0.7 mg/dL (0.00-1.00); Blood Urea Nitrogen 30 mg/dL (7-18); Calcium 8.6 mg/dL (8.5-10.1); Carbon Dioxide 27 mmol/L (21-32); Chloride 100 mmol/L (98-108); Estimated CRCL calculation 18 ml/min; Estimated Glomerular Filt Rate 24; Glucose 163 mg/dL (70-99); Osmolality Calculated 292 mOsm/kg (285-295); Potassium 4.7 mmol/L (3.5-5.1); Sodium 136 mmol/L (136-145)
[2023-07-15 01:32] LABS: NT Pro B Type Natriuretic Pept 1487 pg/mL (0-450)
[2023-07-15 01:34] LABS: Lactic Acid Reflex 0.9 mmol/L (0.4-2.0)
[2023-07-15 01:45] LABS: Influenza A QL RT-PCR Negative (Negative); Influenza B QL RT-PCR Negative (Negative); RSV RNA, RT-PCR Negative (Negative); SARS-CoV-2 RNA PCR Negative (Negative)
--- NOTE | 2023-07-15 01:46 | PC.NURSE ---
urine taken to lab
--- NOTE | 2023-07-15 01:51 | PC.NURSE ---
patient resting on stretcher. daughter at the bedside. denies any needs. call light in reach.
[2023-07-15 01:53] LABS: Appearance Urine Clear (Clear); Bilirubin Urine Negative (Negative); Blood Urine 3+ (Negative); Color Urine Light Yellow (Yellow); Glucose Urine UA Negative (Negative); Ketones Urine Negative (Negative); Leukocyte Esterase Ur 1+ LEU/UL (Negative); Nitrate Urine Positive (Negative); Protein Urine 1+ (Negative); Urobilinogen Urine 0.2 mg/dL (0.2-1.0)
[2023-07-15 01:59] LABS: Add Urine Microscopic? YES; Bacteria Urine 3+ /hpf; Squamous Epithelial Cell Urine Rare /hpf (Few)
--- NOTE | 2023-07-15 02:35 | PC.NURSE ---
daughter notified of admission and room assignment 204
--- NOTE | 2023-07-15 02:54 | PC.NURSE ---
patient using bedpan due to weakness.
--- NOTE | 2023-07-15 02:56 | PC.NURSE ---
ED Sbar printed and reviewed by this nurse.
[2023-07-15] MEDS: SODIUM CHLORIDE 0.9% IV 1,000 ML 100 ML IV CONT (03:37)
[2023-07-15 05:29] LABS: Basophils Absolute Auto 0.03 K/mm3 (0.00-0.10); Basophils Percent Auto 0.4 % (0.0-1.0); Eosinophils Absolute Auto 0.06 K/mm3 (0.02-0.50); Eosinophils Percent Auto 0.8 % (1.0-6.0); Hematocrit 31.4 % (35.0-42.0); Immature Granulocyte Absolute 0.02 K/mm3 (0.00-0.00); Immature Granulocyte Percent A 0.3 % (0.0-0.0); Lymphocytes Absolute Auto 1.16 K/mm3 (1.10-4.50); Lymphocytes Percent Auto 15.7 % (18.0-42.0); Mean Corpuscular HGB Conc 31.8 g/dL (32-36); Mean Corpuscular Hemoglobin 29.2 pg (27.0-31.0); Mean Corpuscular Volume 91.5 fL (78.0-102.0); Mean Platelet Volume 9.3 fl (9.2-11.8); Monocytes Absolute Auto 0.86 K/mm3 (0.10-0.90); Monocytes Percent Auto 11.7 % (2.0-11.0); Neutrophils Absolute Auto 5.24 K/mm3 (1.70-7.20); Neutrophils Percent Auto 71.1 % (50.0-70.0); Platelet Count Result 194 K/mm3 (150-420); Red Blood Count 3.43 M/mm3 (4.20-5.40); Red Cell Distribution Width 14.4 % (11.6-14.4); White Blood Count 7.4 K/mm3 (4.8-10.8)
[2023-07-15] MEDS: LEVOTHYROXINE SODIUM 75 MCG TABLET PO (05:49)
[2023-07-15 05:51] LABS: Albumin Level 2.7 g/dL (3.4-5.0); Alkaline Phosphatase 74 U/L (46-116); Anion Gap 9 mmol/L (4-12); Aspartate Amino Transferase 16 U/L (15-37); Bilirubin,Total 0.4 mg/dL (0.00-1.00); Blood Urea Nitrogen 29 mg/dL (7-18); Calcium 7.9 mg/dL (8.5-10.1); Carbon Dioxide 27 mmol/L (21-32); Chloride 103 mmol/L (98-108); Estimated CRCL calculation 22 ml/min; Estimated Glomerular Filt Rate 25; Glucose 156 mg/dL (70-99); Osmolality Calculated 296 mOsm/kg (285-295); Potassium 4.5 mmol/L (3.5-5.1); Sodium 139 mmol/L (136-145)
[2023-07-15 05:52] LABS: Alanine Aminotransferase < 6 U/L (14-59)
[2023-07-15] MEDS: VENLAFAXINE HCL XR 75 MG CAP.ER.24H PO (09:09)
[2023-07-15] MEDS: SACUBITRIL/VALSARTAN 24-26 MG TABLET 1 TAB PO ×2 (09:09→21:12)
[2023-07-15] MEDS: polyethylene glycoL 3350 17 GM POWD.PACK PO (09:09)
[2023-07-15] MEDS: APIXABAN 2.5 MG TABLET 5 MG PO (09:10)
[2023-07-15] MEDS: MIRABEGRON 25 MG ER TABLET 50 MG PO (09:10)
[2023-07-15] MEDS: CHOLECALCIFEROL 1,000 UNITS TABLET 1000 UNITS PO (09:10)
[2023-07-15] MEDS: levETIRAcetam 500 MG TABLET 1000 MG PO ×2 (09:10→21:11)
[2023-07-15] MEDS: SPIRONOLACTONE 25 MG TABLET PO (09:10)
[2023-07-15] MEDS: MONTELUKAST SODIUM 10 MG TABLET PO (09:10)
--- NOTE | 2023-07-15 10:14 | PM.IMHP ---
H&P: HPI History of Present Illness Date/Time: 07/15/23 10:14 Chief Complaint: weakness, GI on CKD, UTI Narrative: This is an 83-year-old female patient admitted to the hospital after she was evaluated in the ER for generalized weakness and difficulty standing at the assisted living facility. In the ER patient found to worsening renal GI CKD, urinalysis suggestive of urinary tract infection and generalized weakness and shakiness. Patient was admitted to the hospital started IV Rocephin. Patient states that she has just been shaking and having a hard time getting feeling weaker for the last couple of days. Patient denies difficulty breathing fever. Review records shows that she has history of congestive heart failure, pulmonary embolus in February of 2023. patient was admitted on IV fluids Due to GI. At time of evaluation she had a slightly wet sounding periodically cough to IV fluids discontinued. Ordered Lasix. Patient exhibiting significant shakiness and generalized weakness no focal deficits. She is alert and oriented. Review of Systems Review of Systems: All systems reviewed & are unremarkable except as noted in HPI and below PMFSH Past Medical History Medical History Ankle pain, right Chronic combined systolic and diastolic CHF (congestive heart failure) CVA (cerebral vascular accident) History of seizure Hyperlipidemia Hypertension Hypothyroidism Hypoxic Leukocytosis Peripheral neuropathy Pulmonary embolism Type 2 diabetes mellitus Vitamin D deficiency Surgical History Surgical History History of bilateral tubal ligation Status post cataract extraction of both eyes with insertion of intraocular lens Family History Family History Father Alcoholism Mother Breast cancer Ovarian cancer Social History Social History Social History: Patient lives at home with her of over 60 years. She stated that she briefly smoked for a couple of years when she was young. She denies any significant alcohol use. She ambulates with a Rollator. Code status: DNR/DNI (per patient request) Surrogate decision maker: Smoking status: Never smoker Second hand tobacco smoke exposure: No Alcohol intake: former Substance use: never Substance use type: does not use Do You Feel Safe in your Home?: Yes Lack of Transportation: No Lack of Food: Never True Current Housing: I Have Housing Concerned About Future Housing: No Difficulty Paying Gas/Electric Bills: No Difficulty Paying for Meds: No Currently Unemployed: No Education: High School Diploma/GED Difficulty w/ Childcare or Family Care: No Spiritual care concerns: No Meds Home Medications and Allergies Home Medications Medication Instructions Recorded Confirmed Type insulin lispro 100 unit/mL 4 - 8 unit subcut TIDWM #10 mL 03/10/23 07/15/23 Rx subcutaneous solution polyethylene glycol 3350 17 gram 17 g PO QAM #30 ea 03/10/23 07/15/23 Rx oral powder packet apixaban 5 mg tablet 5 mg PO Q12H #60 tabs 03/11/23 07/15/23 Rx cholecalciferol (vitamin D3) 25 25 mcg PO DAILY #30 tabs 03/11/23 07/15/23 Rx mcg (1,000 unit) tablet gabapentin 100 mg capsule 100 mg PO HS #30 caps 03/11/23 07/15/23 Rx levothyroxine 75 mcg tablet 75 mcg PO DAILY #30 tabs 03/11/23 07/15/23 Rx mirabegron 50 mg tablet,extended 50 mg PO DAILY #30 tabs 03/11/23 07/15/23 Rx release 24 hr (Myrbetriq) montelukast 10 mg tablet 10 mg PO DAILY #30 tabs 03/11/23 07/15/23 Rx sacubitril 24 mg-valsartan 26 mg 1 tablet PO BID #60 tabs 03/11/23 07/15/23 Rx tablet (Entresto) spironolactone 25 mg tablet 25 mg PO DAILY #30 tabs 03/11/23 07/15/23 Rx venlafaxine 75 mg capsule,extended 75 mg PO DAILY #30 caps 03/11/23 07/15/23
[2023-07-15] MEDS: lamoTRIgine 25 MG TABLET 75 MG PO ×2 (12:07→21:12)
[2023-07-15] MEDS: INSULIN HUMAN LISPRO (*BKC) 1,000 UNITS/10 ML VIAL SUB-Q (13:05)
[2023-07-15] MEDS: FUROSEMIDE INJ 40 MG/4 ML VIAL IV PUSH (15:50)
[2023-07-15] MEDS: ATORVASTATIN 40 MG TABLET 80 MG PO (21:11)
[2023-07-15] MEDS: APIXABAN 2.5 MG TABLET PO (21:12)
[2023-07-15] MEDS: GABAPENTIN 100 MG CAPSULE PO (21:12)
--- NOTE | 2023-07-15 22:22 | PC.NURSE ---
IV antibiotic infused without difficulty. IV site clean, dry, and intact. Patient urinated clear yellow urine. Pericare provided. Positioned for comfort. Call light and belongings within reach.
[2023-07-16] VITALS: BP 107/41; PULSE 89; RESP 16; TEMP 35.8; O2SAT 92
[2023-07-16 03:03] VITALS: TEMP 36.6
[2023-07-16] MEDS: LEVOTHYROXINE SODIUM 75 MCG TABLET PO (06:11)
--- NOTE | 2023-07-16 07:35 | PM.IMPN ---
Progress Note: A&P Assessment and Plan (1) Bacteremia due to Gram-negative bacteria: Code(s): R78.81 - Bacteremia Status: Acute Assessment and Plan: 07/15: Presumed urinary source Escalate antibiotics to Rocephin 2g Q24H pending cultures (2) Acute kidney injury superimposed on CKD: Code(s): N17.9 - Acute kidney failure, unspecified; N18.9 - Chronic kidney disease, unspecified Status: Acute Assessment and Plan: 07/14: baseline estimated GFR 30-40, 24 on admission. Baseline creatinine 1.3-1.6 was 1.97 on admit avoid nephrotoxins stop IV fluids due to concern fluid overload in the setting of chronic CHF 07/15: (3) UTI (urinary tract infection): Qualifiers: Hematuria presence: without hematuria Urinary tract infection type: acute cystitis Qualified Code(s): N30.00 - Acute cystitis without hematuria Code(s): N39.0 - Urinary tract infection, site not specified Status: Acute Assessment and Plan: 07/14: continue Rocephin, prior urinary tract infections with E coli that were sensitive to everything except fluoroquinolones (4) Chronic combined systolic and diastolic CHF (congestive heart failure): Code(s): I50.42 - Chronic combined systolic (congestive) and diastolic (congestive) heart failure Status: Chronic Assessment and Plan: 07/14: wet sounding cough and slight rales with diminished lung sounds no respiratory distress no hypoxia IV Lasix x1 07/15: Improved respirations, no wet cough (5) Atrial fibrillation: Code(s): I48.91 - Unspecified atrial fibrillation Status: Acute Assessment and Plan: 07/14: Regular heart rhythm this time not tachycardic. 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: Chronic kidney disease stage: stage 3 (moderate) Chronic kidney disease stage 3 subtype: unspecified whether 3a or 3b Diabetes mellitus complication detail: with chronic kidney disease Diabetes mellitus complication status: with kidney complications Diabetes mellitus skilled nursing insulin use: with terminal operations supervisor use Qualified Code(s): E11.22 - Type 2 diabetes mellitus with diabetic chronic kidney disease; N18.30 - Chronic kidney disease, stage 3 unspecified; Z79.4 - middle or intermediate school principal (current) use of insulin Code(s): E11.9 - Type 2 diabetes mellitus without complications Status: Chronic Assessment and Plan: 07/14: ACHS fingerstick glucose with SSI Hold 70/30 home dosing at this time, consider restarting if unable to maintain glycemic control with SSI. Time Spent With Patient Time with patient: Greater than 35 minutes Subjective Date/time seen: 07/16/23 07:35 Interval history: Blood cultures positive for gram negative bacilli. Escalated Rocephin to 2g Q24H. Likely due to urogenic source, presumed E. coli at this time as this has been agent for prior UTIs. Patient is awake, alert. No wet cough or rales noted, improvement since yesterday after DC IV fluids. Still weak, continue PT/OT. Patient may require additional SNF rehab time before return to assisted living facility. Review of Systems Review of Systems: All systems reviewed & are unremarkable except as noted in HPI and below Exam Const: General: no acute distress, alert and well nourished Nutritional Appearance: well nourished Orientation/consciousness: patient oriented x3 Limitations: no limitations HENMT: Head: normal to inspection Eyes: Conjunctivae: conjunctivae normal Pupils: Equal, round and reactive pupils present Neck: Neck: normal visual inspection, no lymphadenopathy and no meningeal signs Chest: Chest palpation & inspection: normal inspection of the chest Resp: Effort & Inspection: normal respiratory effort Auscultation: diminished lung sounds Cardio: Rate:
[2023-07-16 08:00] VITALS: BP 114/47; PULSE 88; RESP 18; TEMP 35.9; O2SAT 95
[2023-07-16] MEDS: SPIRONOLACTONE 25 MG TABLET PO (09:27)
[2023-07-16] MEDS: MONTELUKAST SODIUM 10 MG TABLET PO (09:27)
[2023-07-16] MEDS: VENLAFAXINE HCL XR 75 MG CAP.ER.24H PO (09:27)
[2023-07-16] MEDS: CHOLECALCIFEROL 1,000 UNITS TABLET 1000 UNITS PO (09:27)
[2023-07-16] MEDS: SACUBITRIL/VALSARTAN 24-26 MG TABLET 1 TAB PO ×2 (09:27→21:13)
[2023-07-16] MEDS: MIRABEGRON 25 MG ER TABLET 50 MG PO (09:28)
[2023-07-16] MEDS: levETIRAcetam 500 MG TABLET 1000 MG PO ×2 (09:28→21:13)
[2023-07-16] MEDS: lamoTRIgine 25 MG TABLET 75 MG PO ×2 (09:28→21:13)
[2023-07-16] MEDS: APIXABAN 2.5 MG TABLET PO ×2 (09:28→21:13)
[2023-07-16] MEDS: INSULIN HUMAN LISPRO (*BKC) 1,000 UNITS/10 ML VIAL SUB-Q (11:56)
[2023-07-16 12:08] LABS: Basophils Absolute Auto 0.04 K/mm3 (0.00-0.10); Basophils Percent Auto 0.7 % (0.0-1.0); Eosinophils Absolute Auto 0.14 K/mm3 (0.02-0.50); Eosinophils Percent Auto 2.5 % (1.0-6.0); Hematocrit 33.7 % (35.0-42.0); Hemoglobin 10.7 g/dL (11.7-13.8); Immature Granulocyte Absolute 0.01 K/mm3 (0.00-0.00); Immature Granulocyte Percent A 0.2 % (0.0-0.0); Lymphocytes Absolute Auto 0.83 K/mm3 (1.10-4.50); Lymphocytes Percent Auto 14.7 % (18.0-42.0); Mean Corpuscular HGB Conc 31.8 g/dL (32-36); Mean Corpuscular Volume 91.3 fL (78.0-102.0); Monocytes Absolute Auto 0.56 K/mm3 (0.10-0.90); Monocytes Percent Auto 9.9 % (2.0-11.0); Neutrophils Absolute Auto 4.05 K/mm3 (1.70-7.20); Platelet Count Result 207 K/mm3 (150-420); Red Blood Count 3.69 M/mm3 (4.20-5.40); Red Cell Distribution Width 14.4 % (11.6-14.4); White Blood Count 5.6 K/mm3 (4.8-10.8)
[2023-07-16 12:23] LABS: Alanine Aminotransferase 24 U/L (14-59); Albumin Level 2.8 g/dL (3.4-5.0); Alkaline Phosphatase 79 U/L (46-116); Anion Gap 8 mmol/L (4-12); Aspartate Amino Transferase 17 U/L (15-37); Bilirubin,Total 0.3 mg/dL (0.00-1.00); Blood Urea Nitrogen 28 mg/dL (7-18); CRP 8.6 mg/dL (0.0-0.9); Calcium 8.4 mg/dL (8.5-10.1); Carbon Dioxide 28 mmol/L (21-32); Chloride 99 mmol/L (98-108); Estimated CRCL calculation 20 ml/min; Estimated Glomerular Filt Rate 23; Glucose 233 mg/dL (70-99); Magnesium 1.8 mg/dL (1.8-2.4); Osmolality Calculated 292 mOsm/kg (285-295); Potassium 4.2 mmol/L (3.5-5.1); Sodium 135 mmol/L (136-145); Total Protein 6.5 g/dL (6.4-8.2)
[2023-07-16 16:00] VITALS: BP 118/47; PULSE 77; RESP 16; TEMP 36; O2SAT 94
[2023-07-16 20:00] VITALS: PULSE 77; RESP 16; O2SAT 94
[2023-07-16] MEDS: GABAPENTIN 100 MG CAPSULE PO (21:13)
[2023-07-16] MEDS: ATORVASTATIN 40 MG TABLET 80 MG PO (21:13)
[2023-07-16] MEDS: cefTRIAXone 2 GM/NS 100 ML 2 GM/100 ML BAG IVPB (21:17)
[2023-07-17] VITALS: BP 120/47; PULSE 78; RESP 16; TEMP 36.1; O2SAT 95
[2023-07-17] MEDS: LEVOTHYROXINE SODIUM 75 MCG TABLET PO (06:04)
[2023-07-17 06:29] LABS: Basophils Absolute Auto 0.04 K/mm3 (0.00-0.10); Basophils Percent Auto 0.7 % (0.0-1.0); Eosinophils Absolute Auto 0.26 K/mm3 (0.02-0.50); Eosinophils Percent Auto 4.8 % (1.0-6.0); Hematocrit 31.8 % (35.0-42.0); Hemoglobin 10.2 g/dL (11.7-13.8); Immature Granulocyte Absolute 0.03 K/mm3 (0.00-0.00); Immature Granulocyte Percent A 0.5 % (0.0-0.0); Lymphocytes Absolute Auto 1.23 K/mm3 (1.10-4.50); Lymphocytes Percent Auto 22.5 % (18.0-42.0); Mean Corpuscular HGB Conc 32.1 g/dL (32-36); Mean Corpuscular Hemoglobin 28.7 pg (27.0-31.0); Mean Corpuscular Volume 89.3 fL (78.0-102.0); Mean Platelet Volume 9.6 fl (9.2-11.8); Monocytes Absolute Auto 0.69 K/mm3 (0.10-0.90); Monocytes Percent Auto 12.6 % (2.0-11.0); Neutrophils Absolute Auto 3.21 K/mm3 (1.70-7.20); Neutrophils Percent Auto 58.9 % (50.0-70.0); Platelet Count Result 218 K/mm3 (150-420); Red Blood Count 3.56 M/mm3 (4.20-5.40); Red Cell Distribution Width 14.2 % (11.6-14.4); White Blood Count 5.5 K/mm3 (4.8-10.8)
[2023-07-17 06:42] LABS: Alanine Aminotransferase 22 U/L (14-59); Albumin Level 2.6 g/dL (3.4-5.0); Alkaline Phosphatase 75 U/L (46-116); Anion Gap 10 mmol/L (4-12); Aspartate Amino Transferase 18 U/L (15-37); Bilirubin,Total 0.2 mg/dL (0.00-1.00); Blood Urea Nitrogen 29 mg/dL (7-18); Calcium 8.3 mg/dL (8.5-10.1); Carbon Dioxide 26 mmol/L (21-32); Chloride 102 mmol/L (98-108); Estimated CRCL calculation 24 ml/min; Estimated Glomerular Filt Rate 28; Glucose 162 mg/dL (70-99); Magnesium 1.8 mg/dL (1.8-2.4); Osmolality Calculated 295 mOsm/kg (285-295); Potassium 4.1 mmol/L (3.5-5.1); Sodium 138 mmol/L (136-145); Total Protein 6.1 g/dL (6.4-8.2)
[2023-07-17 08:00] VITALS: BP 110/48; PULSE 77; RESP 16; TEMP 35.9; O2SAT 94
[2023-07-17] MEDS: MIRABEGRON 25 MG ER TABLET 50 MG PO (08:41)
[2023-07-17] MEDS: SACUBITRIL/VALSARTAN 24-26 MG TABLET 1 TAB PO ×2 (08:41→20:21)
[2023-07-17] MEDS: MONTELUKAST SODIUM 10 MG TABLET PO (08:42)
[2023-07-17] MEDS: SPIRONOLACTONE 25 MG TABLET PO (08:42)
[2023-07-17] MEDS: APIXABAN 2.5 MG TABLET PO ×2 (08:42→20:21)
[2023-07-17] MEDS: CHOLECALCIFEROL 1,000 UNITS TABLET 1000 UNITS PO (08:42)
[2023-07-17] MEDS: VENLAFAXINE HCL XR 75 MG CAP.ER.24H PO (08:42)
[2023-07-17] MEDS: lamoTRIgine 25 MG TABLET 75 MG PO ×2 (08:42→20:21)
[2023-07-17] MEDS: levETIRAcetam 500 MG TABLET 1000 MG PO ×2 (08:42→20:21)
--- NOTE | 2023-07-17 10:39 | WPDPN ---
Progress Note: A&P Assessment and Plan (1) Bacteremia due to Gram-negative bacteria: Code(s): R78.81 - Bacteremia Status: Acute Assessment and Plan: 07/15: Presumed urinary source Escalate antibiotics to Rocephin 2g Q24H pending cultures Blood cultures came back positive Gram negative Bacilli in both bottles and urine positive for E Coli (2) Acute kidney injury superimposed on CKD: Code(s): N17.9 - Acute kidney failure, unspecified; N18.9 - Chronic kidney disease, unspecified Status: Acute Assessment and Plan: 07/14: baseline estimated GFR 30-40, 24 on admission. Baseline creatinine 1.3-1.6 was 1.97 on admit avoid nephrotoxins stop IV fluids due to concern fluid overload in the setting of chronic CHF 07/15: (3) UTI (urinary tract infection): Qualifiers: Hematuria presence: without hematuria Urinary tract infection type: acute cystitis Qualified Code(s): N30.00 - Acute cystitis without hematuria Code(s): N39.0 - Urinary tract infection, site not specified Status: Acute Assessment and Plan: 07/14: continue Rocephin, prior urinary tract infections with E coli that were sensitive to everything except fluoroquinolones (4) Chronic combined systolic and diastolic CHF (congestive heart failure): Code(s): I50.42 - Chronic combined systolic (congestive) and diastolic (congestive) heart failure Status: Chronic Assessment and Plan: 07/14: wet sounding cough and slight rales with diminished lung sounds no respiratory distress no hypoxia IV Lasix x1 07/15: Improved respirations, no wet cough (5) Atrial fibrillation: Code(s): I48.91 - Unspecified atrial fibrillation Status: Acute Assessment and Plan: 07/14: Regular heart rhythm this time not tachycardic. 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: Diabetes mellitus terminal block assembler insulin use: with senior care use Diabetes mellitus complication status: with kidney complications Diabetes mellitus complication detail: with chronic kidney disease Chronic kidney disease stage: stage 3 (moderate) Chronic kidney disease stage 3 subtype: unspecified whether 3a or 3b Qualified Code(s): E11.22 - Type 2 diabetes mellitus with diabetic chronic kidney disease; N18.30 - Chronic kidney disease, stage 3 unspecified; Z79.4 - snf (current) use of insulin Code(s): E11.9 - Type 2 diabetes mellitus without complications Status: Chronic Assessment and Plan: 07/14: ACHS fingerstick glucose with SSI Hold 70/30 home dosing at this time, consider restarting if unable to maintain glycemic control with SSI. Subjective Date/time seen: 07/17/23 10:39 Interval history: Patient in the bed was seen by Pt AND she is resting she was in the recliner chair at 0600 and just layed down she states she came becasue of weakness we will will contineu to treat with IV antibioitc and we will cotinue to monitor. Objective Data Vital Signs Vital Signs: Vital Signs - 24 hr 07/16/23 16:00 07/16/23 20:00 07/17/23 00:00 Temperature 96.8 F L 97.0 F L Pulse Rate 77 77 78 Respiratory Rate 16 16 16 Blood Pressure 118/47 L 120/47 L Pulse Oximetry 94 94 95 Oxygen Delivery Room Air Room Air Room Air Intake/Output Intake/Output: Intake & Output 07/14/23 07/15/23 07/16/23 07/17/23 23:59 23:59 23:59 23:59 Intake Total 3140.0 1640 240 Output Total 3000 600 1100 Balance 140.0 1040 -860 Meds/Results Medications: Active Medications Generic Name Dose Route Start Last Admin Trade Name Freq PRN Reason Stop Dose Admin Acetaminophen 650 mg 07/15/23 02:23 Acetaminophen 325 Mg Tablet PO Q4H PRN Mild Pain (1-3) or Fever Apixaban 2.5 mg 07/15/23 21:00 07/17/23 08:42 Apixaban 2.5
[2023-07-17] MEDS: INSULIN HUMAN LISPRO (*BKC) 1,000 UNITS/10 ML VIAL SUB-Q (12:12)
[2023-07-17 16:00] VITALS: BP 124/51; PULSE 75; RESP 18; TEMP 35.9; O2SAT 96
[2023-07-17 20:00] VITALS: PULSE 75; RESP 18; O2SAT 96
[2023-07-17] MEDS: cefTRIAXone 2 GM/NS 100 ML 2 GM/100 ML BAG IVPB (20:21)
[2023-07-17] MEDS: GABAPENTIN 100 MG CAPSULE PO (20:21)
[2023-07-17] MEDS: ATORVASTATIN 40 MG TABLET 80 MG PO (20:21)
--- NOTE | 2023-07-17 21:00 | PC.NURSE ---
HS glucose 288
[2023-07-18] VITALS: BP 122/59; PULSE 77; RESP 16; TEMP 35.9; O2SAT 97
[2023-07-18] MEDS: LEVOTHYROXINE SODIUM 75 MCG TABLET PO (05:33)
[2023-07-18 05:43] LABS: Basophils Absolute Auto 0.06 K/mm3 (0.00-0.10); Eosinophils Absolute Auto 0.34 K/mm3 (0.02-0.50); Eosinophils Percent Auto 5.5 % (1.0-6.0); Hematocrit 32.6 % (35.0-42.0); Hemoglobin 10.2 g/dL (11.7-13.8); Immature Granulocyte Absolute 0.02 K/mm3 (0.00-0.00); Immature Granulocyte Percent A 0.3 % (0.0-0.0); Lymphocytes Percent Auto 22.8 % (18.0-42.0); Mean Corpuscular HGB Conc 31.3 g/dL (32-36); Mean Corpuscular Volume 92.6 fL (78.0-102.0); Mean Platelet Volume 9.5 fl (9.2-11.8); Monocytes Absolute Auto 0.54 K/mm3 (0.10-0.90); Monocytes Percent Auto 8.8 % (2.0-11.0); Neutrophils Absolute Auto 3.78 K/mm3 (1.70-7.20); Neutrophils Percent Auto 61.6 % (50.0-70.0); Platelet Count Result 242 K/mm3 (150-420); Red Blood Count 3.52 M/mm3 (4.20-5.40); Red Cell Distribution Width 14.1 % (11.6-14.4); White Blood Count 6.1 K/mm3 (4.8-10.8)
[2023-07-18 05:53] LABS: Alanine Aminotransferase 23 U/L (14-59); Albumin Level 2.7 g/dL (3.4-5.0); Alkaline Phosphatase 85 U/L (46-116); Anion Gap 7 mmol/L (4-12); Aspartate Amino Transferase 17 U/L (15-37); Bilirubin,Total 0.2 mg/dL (0.00-1.00); Blood Urea Nitrogen 33 mg/dL (7-18); Calcium 8.4 mg/dL (8.5-10.1); Carbon Dioxide 29 mmol/L (21-32); Chloride 103 mmol/L (98-108); Estimated CRCL calculation 25 ml/min; Estimated Glomerular Filt Rate 29; Glucose 166 mg/dL (70-99); Magnesium 1.9 mg/dL (1.8-2.4); Osmolality Calculated 299 mOsm/kg (285-295); Potassium 4.6 mmol/L (3.5-5.1); Sodium 139 mmol/L (136-145); Total Protein 6.2 g/dL (6.4-8.2)
[2023-07-18 08:00] VITALS: BP 116/42; PULSE 75; RESP 20; TEMP 35.8; O2SAT 95
--- NOTE | 2023-07-18 08:59 | WPDPN ---
Progress Note: A&P Assessment and Plan (1) Bacteremia due to Gram-negative bacteria: Code(s): R78.81 - Bacteremia Status: Acute Assessment and Plan: 07/15: Presumed urinary source Escalate antibiotics to Rocephin 2g Q24H pending cultures Blood cultures came back positive Gram negative Bacilli in both bottles and urine positive for E Coli We will Give one more day of IV rocephin and then Switch to Oral Augmentin in which she will be renally dosed and last day will Be Tuesday (2) Acute kidney injury superimposed on CKD: Code(s): N17.9 - Acute kidney failure, unspecified; N18.9 - Chronic kidney disease, unspecified Status: Acute Assessment and Plan: 07/14: baseline estimated GFR 30-40, 24 on admission. Baseline creatinine 1.3-1.6 was 1.97 on admit avoid nephrotoxins stop IV fluids due to concern fluid overload in the setting of chronic CHF 07/15: (3) UTI (urinary tract infection): Qualifiers: Hematuria presence: without hematuria Urinary tract infection type: acute cystitis Qualified Code(s): N30.00 - Acute cystitis without hematuria Code(s): N39.0 - Urinary tract infection, site not specified Status: Acute Assessment and Plan: 07/14: continue Rocephin, prior urinary tract infections with E coli that were sensitive to everything except fluoroquinolones (4) Chronic combined systolic and diastolic CHF (congestive heart failure): Code(s): I50.42 - Chronic combined systolic (congestive) and diastolic (congestive) heart failure Status: Chronic Assessment and Plan: 07/14: wet sounding cough and slight rales with diminished lung sounds no respiratory distress no hypoxia IV Lasix x1 07/15: Improved respirations, no wet cough (5) Atrial fibrillation: Code(s): I48.91 - Unspecified atrial fibrillation Status: Acute Assessment and Plan: 07/14: Regular heart rhythm this time not tachycardic. 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: Diabetes mellitus manager etl insulin use: with usp use Diabetes mellitus complication status: with kidney complications Diabetes mellitus complication detail: with chronic kidney disease Chronic kidney disease stage: stage 3 (moderate) Chronic kidney disease stage 3 subtype: unspecified whether 3a or 3b Qualified Code(s): E11.22 - Type 2 diabetes mellitus with diabetic chronic kidney disease; N18.30 - Chronic kidney disease, stage 3 unspecified; Z79.4 - long-term (current) use of insulin Code(s): E11.9 - Type 2 diabetes mellitus without complications Status: Chronic Assessment and Plan: 07/14: ACHS fingerstick glucose with SSI Hold 70/30 home dosing at this time, consider restarting if unable to maintain glycemic control with SSI. Subjective Date/time seen: 07/18/23 08:59 Interval history: Arvind is doing well Spoke with infectious disease Pharmacist Vernon we will continue rocephin 2gm today and we will switch her over to Augmentin 500 TID as she is being renally dosed and her last day will be Tuesday. Alfonso tis doing well and has remained a febrile and moving well and eating. Exam Const: General: no acute distress, alert and well nourished Nutritional Appearance: well nourished Orientation/consciousness: patient oriented x3 Limitations: no limitations HENMT: Head: normal to inspection Eyes: Conjunctivae: conjunctivae normal Pupils: Equal, round and reactive pupils present Neck: Neck: normal visual inspection, no lymphadenopathy and no meningeal signs Chest: Chest palpation & inspection: normal inspection of the chest Resp: Effort & Inspection: normal respiratory effort Auscultation: clear to auscultation bilaterally, rales and diminished lung sounds Other: wet sounding
--- NOTE | 2023-07-18 09:07 | WPDPN ---
Progress Note: A&P Assessment and Plan (1) Bacteremia due to Gram-negative bacteria: Code(s): R78.81 - Bacteremia Status: Acute Assessment and Plan: 07/15: Presumed urinary source Escalate antibiotics to Rocephin 2g Q24H pending cultures Blood cultures came back positive Gram negative Bacilli in both bottles and urine positive for E Coli We will Give one more day of IV rocephin and then Switch to Oral Augmentin in which she will be renally dosed and last day will Be Tuesday (2) Acute kidney injury superimposed on CKD: Code(s): N17.9 - Acute kidney failure, unspecified; N18.9 - Chronic kidney disease, unspecified Status: Acute Assessment and Plan: 07/14: baseline estimated GFR 30-40, 24 on admission. Baseline creatinine 1.3-1.6 was 1.97 on admit avoid nephrotoxins stop IV fluids due to concern fluid overload in the setting of chronic CHF 07/15: (3) UTI (urinary tract infection): Qualifiers: Hematuria presence: without hematuria Urinary tract infection type: acute cystitis Qualified Code(s): N30.00 - Acute cystitis without hematuria Code(s): N39.0 - Urinary tract infection, site not specified Status: Acute Assessment and Plan: 07/14: continue Rocephin, prior urinary tract infections with E coli that were sensitive to everything except fluoroquinolones (4) Chronic combined systolic and diastolic CHF (congestive heart failure): Code(s): I50.42 - Chronic combined systolic (congestive) and diastolic (congestive) heart failure Status: Chronic Assessment and Plan: 07/14: wet sounding cough and slight rales with diminished lung sounds no respiratory distress no hypoxia IV Lasix x1 07/15: Improved respirations, no wet cough (5) Atrial fibrillation: Code(s): I48.91 - Unspecified atrial fibrillation Status: Acute Assessment and Plan: 07/14: Regular heart rhythm this time not tachycardic. 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 insulin use: with assisted use Diabetes mellitus complication status: with kidney complications Diabetes mellitus complication detail: with chronic kidney disease Chronic kidney disease stage: stage 3 (moderate) Chronic kidney disease stage 3 subtype: unspecified whether 3a or 3b Qualified Code(s): E11.22 - Type 2 diabetes mellitus with diabetic chronic kidney disease; N18.30 - Chronic kidney disease, stage 3 unspecified; Z79.4 - intermediate (current) use of insulin Code(s): E11.9 - Type 2 diabetes mellitus without complications Status: Chronic Assessment and Plan: 07/14: ACHS fingerstick glucose with SSI Hold 70/30 home dosing at this time, consider restarting if unable to maintain glycemic control with SSI. Subjective Date/time seen: 07/18/23 09:07 Interval history: Patient doing well Eating and Drinking afebrile IV Rocephin until tomorro Will start oral Augmentin until Tuesday Exam Const: General: no acute distress, alert and well nourished Nutritional Appearance: well nourished Orientation/consciousness: patient oriented x3 Limitations: no limitations HENMT: Head: normal to inspection Eyes: Conjunctivae: conjunctivae normal Pupils: Equal, round and reactive pupils present Neck: Neck: normal visual inspection, no lymphadenopathy and no meningeal signs Chest: Chest palpation & inspection: normal inspection of the chest Resp: Effort & Inspection: normal respiratory effort Auscultation: clear to auscultation bilaterally, rales and diminished lung sounds Other: wet sounding intermittent cough Cardio: Rate: regular rate Rhythm: regular rhythm GI: Auscultation: normal bowel sounds : General: Yes Bladder palpation abnormal and Yes no CVA
[2023-07-18] MEDS: lamoTRIgine 25 MG TABLET 75 MG PO ×2 (09:23→20:12)
[2023-07-18] MEDS: APIXABAN 2.5 MG TABLET PO ×2 (09:24→20:12)
[2023-07-18] MEDS: SPIRONOLACTONE 25 MG TABLET PO (09:24)
[2023-07-18] MEDS: SACUBITRIL/VALSARTAN 24-26 MG TABLET 1 TAB PO ×2 (09:24→20:12)
[2023-07-18] MEDS: CHOLECALCIFEROL 1,000 UNITS TABLET 1000 UNITS PO (09:24)
[2023-07-18] MEDS: MONTELUKAST SODIUM 10 MG TABLET PO (09:24)
[2023-07-18] MEDS: VENLAFAXINE HCL XR 75 MG CAP.ER.24H PO (09:24)
[2023-07-18] MEDS: MIRABEGRON 25 MG ER TABLET 50 MG PO (09:24)
[2023-07-18] MEDS: levETIRAcetam 500 MG TABLET 1000 MG PO ×2 (09:24→20:11)
[2023-07-18] MEDS: INSULIN HUMAN LISPRO (*BKC) 1,000 UNITS/10 ML VIAL SUB-Q (12:00)
[2023-07-18 16:00] VITALS: BP 121/46; PULSE 78; RESP 20; TEMP 36.2; O2SAT 94
[2023-07-18 20:00] VITALS: PULSE 78; RESP 20; O2SAT 94
[2023-07-18] MEDS: ATORVASTATIN 40 MG TABLET 80 MG PO (20:12)
[2023-07-18] MEDS: cefTRIAXone 2 GM/NS 100 ML 2 GM/100 ML BAG IVPB (20:14)
[2023-07-18] MEDS: GABAPENTIN 100 MG CAPSULE PO (20:25)
--- NOTE | 2023-07-18 21:05 | PC.NURSE ---
HS glucose 288
[2023-07-18 22:04] LABS: Procalcitonin 0.3 ng/mL
[2023-07-18 23:59] VITALS: BP 115/41; PULSE 87; RESP 16; TEMP 36.1; O2SAT 96
[2023-07-19 05:20] LABS: Basophils Absolute Auto 0.05 K/mm3 (0.00-0.10); Basophils Percent Auto 0.8 % (0.0-1.0); Eosinophils Absolute Auto 0.31 K/mm3 (0.02-0.50); Hematocrit 31.5 % (35.0-42.0); Immature Granulocyte Absolute 0.02 K/mm3 (0.00-0.00); Immature Granulocyte Percent A 0.3 % (0.0-0.0); Lymphocytes Absolute Auto 1.42 K/mm3 (1.10-4.50); Lymphocytes Percent Auto 23.1 % (18.0-42.0); Mean Corpuscular HGB Conc 31.7 g/dL (32-36); Mean Corpuscular Hemoglobin 28.8 pg (27.0-31.0); Mean Corpuscular Volume 90.8 fL (78.0-102.0); Monocytes Absolute Auto 0.54 K/mm3 (0.10-0.90); Monocytes Percent Auto 8.8 % (2.0-11.0); Neutrophils Absolute Auto 3.81 K/mm3 (1.70-7.20); Platelet Count Result 248 K/mm3 (150-420); Red Blood Count 3.47 M/mm3 (4.20-5.40); Red Cell Distribution Width 14.3 % (11.6-14.4); White Blood Count 6.2 K/mm3 (4.8-10.8)
[2023-07-19 05:35] LABS: Alanine Aminotransferase 26 U/L (14-59); Albumin Level 2.7 g/dL (3.4-5.0); Alkaline Phosphatase 103 U/L (46-116); Anion Gap 9 mmol/L (4-12); Aspartate Amino Transferase 17 U/L (15-37); Bilirubin,Total 0.1 mg/dL (0.00-1.00); Blood Urea Nitrogen 30 mg/dL (7-18); Calcium 8.5 mg/dL (8.5-10.1); Carbon Dioxide 27 mmol/L (21-32); Chloride 103 mmol/L (98-108); Estimated CRCL calculation 26 ml/min; Estimated Glomerular Filt Rate 30; Glucose 179 mg/dL (70-99); Magnesium 1.7 mg/dL (1.8-2.4); Osmolality Calculated 298 mOsm/kg (285-295); Potassium 4.5 mmol/L (3.5-5.1); Sodium 139 mmol/L (136-145); Total Protein 6.2 g/dL (6.4-8.2)
[2023-07-19] MEDS: LEVOTHYROXINE SODIUM 75 MCG TABLET PO (05:55)
--- NOTE | 2023-07-19 07:59 | PM.IMPN ---
Progress Note: A&P Assessment and Plan (1) Bacteremia due to Gram-negative bacteria: Code(s): R78.81 - Bacteremia Status: Acute Assessment and Plan: 07/15: Presumed urinary source Escalate antibiotics to Rocephin 2g Q24H pending cultures Blood cultures came back positive Gram negative Bacilli in both bottles and urine positive for E Coli We will Give one more day of IV rocephin and then Switch to Oral Augmentin in which she will be renally dosed and last day will Be Tuesday (2) Acute kidney injury superimposed on CKD: Code(s): N17.9 - Acute kidney failure, unspecified; N18.9 - Chronic kidney disease, unspecified Status: Acute Assessment and Plan: 07/14: baseline estimated GFR 30-40, 24 on admission. Baseline creatinine 1.3-1.6 was 1.97 on admit avoid nephrotoxins stop IV fluids due to concern fluid overload in the setting of chronic CHF 07/15: (3) UTI (urinary tract infection): Qualifiers: Hematuria presence: without hematuria Urinary tract infection type: acute cystitis Qualified Code(s): N30.00 - Acute cystitis without hematuria Code(s): N39.0 - Urinary tract infection, site not specified Status: Acute Assessment and Plan: 07/14: continue Rocephin, prior urinary tract infections with E coli that were sensitive to everything except fluoroquinolones (4) Chronic combined systolic and diastolic CHF (congestive heart failure): Code(s): I50.42 - Chronic combined systolic (congestive) and diastolic (congestive) heart failure Status: Chronic Assessment and Plan: 07/14: wet sounding cough and slight rales with diminished lung sounds no respiratory distress no hypoxia IV Lasix x1 07/15: Improved respirations, no wet cough (5) Atrial fibrillation: Code(s): I48.91 - Unspecified atrial fibrillation Status: Acute Assessment and Plan: 07/14: Regular heart rhythm this time not tachycardic. 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 insulin use: with residential use Diabetes mellitus complication status: with kidney complications Diabetes mellitus complication detail: with chronic kidney disease Chronic kidney disease stage: stage 3 (moderate) Chronic kidney disease stage 3 subtype: unspecified whether 3a or 3b Qualified Code(s): E11.22 - Type 2 diabetes mellitus with diabetic chronic kidney disease; N18.30 - Chronic kidney disease, stage 3 unspecified; Z79.4 - group home (current) use of insulin Code(s): E11.9 - Type 2 diabetes mellitus without complications Status: Chronic Assessment and Plan: 07/14: ACHS fingerstick glucose with SSI Hold 70/30 home dosing at this time, consider restarting if unable to maintain glycemic control with SSI. Subjective Date/time seen: 07/19/23 07:59 Interval history: patient up in recliner chair and we have switched her to oral medication. I did discuss with patient about swinging her possibly tomorrow we will see how she does on oral antibioitics which she should remain on until Tuesday. Pt is in agreement and denies needing anything else. Exam Const: General: no acute distress, alert and well nourished Nutritional Appearance: well nourished Orientation/consciousness: patient oriented x3 Limitations: no limitations HENMT: Head: normal to inspection Eyes: Conjunctivae: conjunctivae normal Pupils: Equal, round and reactive pupils present Chest: Chest palpation & inspection: normal inspection of the chest Resp: Effort & Inspection: normal respiratory effort Auscultation: clear to auscultation bilaterally, rales and diminished lung sounds Other: wet sounding intermittent cough Cardio: Rate: regular rate Rhythm: regular rhythm GI: Auscultation: n
[2023-07-19 08:00] VITALS: BP 127/54; PULSE 78; RESP 12; TEMP 36.2; O2SAT 92
--- NOTE | 2023-07-19 08:05 | PC.NURSE ---
Pt. YARED is 186 @ 3793. No sliding scale insulin is needed.
[2023-07-19] MEDS: CHOLECALCIFEROL 1,000 UNITS TABLET 1000 UNITS PO (08:56)
[2023-07-19] MEDS: SPIRONOLACTONE 25 MG TABLET PO (08:56)
[2023-07-19] MEDS: MONTELUKAST SODIUM 10 MG TABLET PO (08:56)
[2023-07-19] MEDS: lamoTRIgine 25 MG TABLET 75 MG PO ×2 (08:56→20:56)
[2023-07-19] MEDS: SACUBITRIL/VALSARTAN 24-26 MG TABLET 1 TAB PO ×2 (08:56→20:55)
[2023-07-19] MEDS: MIRABEGRON 25 MG ER TABLET 50 MG PO (08:56)
[2023-07-19] MEDS: levETIRAcetam 500 MG TABLET 1000 MG PO ×2 (08:57→20:57)
[2023-07-19] MEDS: VENLAFAXINE HCL XR 75 MG CAP.ER.24H PO (08:57)
[2023-07-19] MEDS: polyethylene glycoL 3350 17 GM POWD.PACK PO (08:58)
[2023-07-19] MEDS: APIXABAN 2.5 MG TABLET PO ×2 (08:58→20:55)
[2023-07-19 10:27] LABS: Glucose Point of Care 186 mg/dl (65-105)
[2023-07-19 10:31] LABS: Glucose Point of Care 228 mg/dl (65-105)
[2023-07-19 10:31] LABS: Glucose Point of Care 198 mg/dl (65-105)
[2023-07-19 10:35] LABS: Glucose Point of Care 150 mg/dl (65-105)
[2023-07-19 10:36] LABS: Glucose Point of Care 220 mg/dl (65-105)
[2023-07-19 10:36] LABS: Glucose Point of Care 187 mg/dl (65-105)
[2023-07-19 10:36] LABS: Glucose Point of Care 247 mg/dl (65-105)
[2023-07-19 10:36] LABS: Glucose Point of Care 172 mg/dl (65-105)
[2023-07-19 10:36] LABS: Glucose Point of Care 182 mg/dl (65-105)
[2023-07-19 10:37] LABS: Glucose Point of Care 119 mg/dl (65-105)
[2023-07-19 10:37] LABS: Glucose Point of Care 165 mg/dl (65-105)
[2023-07-19 12:20] LABS: Glucose Point of Care 226 mg/dl (65-105)
[2023-07-19 12:22] LABS: Glucose Point of Care 234 mg/dl (65-105)
[2023-07-19] MEDS: INSULIN HUMAN LISPRO (*BKC) 1,000 UNITS/10 ML VIAL SUB-Q (12:46)
[2023-07-19 16:00] VITALS: BP 124/42; PULSE 72; RESP 18; TEMP 35.6; O2SAT 95
[2023-07-19] MEDS: AMOXICILLIN/CLAVULANATE K 500-125 MG TAB 1 TABLET PO (20:55)
[2023-07-19] MEDS: GABAPENTIN 100 MG CAPSULE PO (20:57)
[2023-07-19] MEDS: ATORVASTATIN 40 MG TABLET 80 MG PO (20:57)
[2023-07-20] VITALS: BP 130/50; PULSE 72; RESP 16; TEMP 36.1; O2SAT 95
--- NOTE | 2023-07-20 00:48 | PC.NURSE ---
Patient in bed resting. No signs of SOB or pain. SR up x2. Call light and belongings within reach.
--- NOTE | 2023-07-20 01:33 | PC.NURSE ---
Resting quietly. SR up x2, call light and belongings within reach.
--- NOTE | 2023-07-20 02:28 | PC.NURSE ---
Patient resting quietly. Call light and belongings within reach.
--- NOTE | 2023-07-20 04:09 | PC.NURSE ---
Pt asleep and no signs of discomfort noted.
--- NOTE | 2023-07-20 05:15 | PC.NURSE ---
Pt up to the bathroom with the walker and standby assist of one. Pt returned to bed with the walker and standby assist of one.
[2023-07-20 05:23] LABS: Basophils Absolute Auto 0.07 K/mm3 (0.00-0.10); Basophils Percent Auto 1.1 % (0.0-1.0); Eosinophils Absolute Auto 0.33 K/mm3 (0.02-0.50); Eosinophils Percent Auto 5.2 % (1.0-6.0); Hematocrit 32.6 % (35.0-42.0); Hemoglobin 9.9 g/dL (11.7-13.8); Immature Granulocyte Absolute 0.03 K/mm3 (0.00-0.00); Immature Granulocyte Percent A 0.5 % (0.0-0.0); Lymphocytes Percent Auto 26.8 % (18.0-42.0); Mean Corpuscular HGB Conc 30.4 g/dL (32-36); Mean Corpuscular Hemoglobin 28.2 pg (27.0-31.0); Mean Corpuscular Volume 92.9 fL (78.0-102.0); Mean Platelet Volume 9.2 fl (9.2-11.8); Monocytes Absolute Auto 0.51 K/mm3 (0.10-0.90); Neutrophils Percent Auto 58.4 % (50.0-70.0); Platelet Count Result 249 K/mm3 (150-420); Red Blood Count 3.51 M/mm3 (4.20-5.40); Red Cell Distribution Width 14.4 % (11.6-14.4); White Blood Count 6.3 K/mm3 (4.8-10.8)
[2023-07-20 05:38] LABS: Alanine Aminotransferase 25 U/L (14-59); Albumin Level 2.7 g/dL (3.4-5.0); Alkaline Phosphatase 100 U/L (46-116); Anion Gap 8 mmol/L (4-12); Aspartate Amino Transferase 18 U/L (15-37); Bilirubin,Total 0.2 mg/dL (0.00-1.00); Blood Urea Nitrogen 28 mg/dL (7-18); Calcium 8.6 mg/dL (8.5-10.1); Carbon Dioxide 28 mmol/L (21-32); Chloride 104 mmol/L (98-108); Estimated CRCL calculation 27 ml/min; Estimated Glomerular Filt Rate 32; Glucose 169 mg/dL (70-99); Magnesium 1.7 mg/dL (1.8-2.4); Osmolality Calculated 299 mOsm/kg (285-295); Potassium 4.5 mmol/L (3.5-5.1); Sodium 140 mmol/L (136-145); Total Protein 6.2 g/dL (6.4-8.2)
[2023-07-20] MEDS: LEVOTHYROXINE SODIUM 75 MCG TABLET PO (05:54)
[2023-07-20] MEDS: AMOXICILLIN/CLAVULANATE K 500-125 MG TAB 1 TABLET PO ×2 (05:54→15:15)
--- NOTE | 2023-07-20 06:00 | PC.NURSE ---
Pt given Amoxicillin 500/125 PO as ordered.
[2023-07-20 08:00] VITALS: BP 109/47; PULSE 77; RESP 17; TEMP 35.8; O2SAT 92
[2023-07-20] MEDS: CHOLECALCIFEROL 1,000 UNITS TABLET 1000 UNITS PO (08:57)
[2023-07-20] MEDS: levETIRAcetam 500 MG TABLET 1000 MG PO (08:57)
[2023-07-20] MEDS: APIXABAN 2.5 MG TABLET PO (08:57)
[2023-07-20] MEDS: VENLAFAXINE HCL XR 75 MG CAP.ER.24H PO (08:57)
[2023-07-20] MEDS: MIRABEGRON 25 MG ER TABLET 50 MG PO (08:57)
[2023-07-20] MEDS: MONTELUKAST SODIUM 10 MG TABLET PO (08:57)
[2023-07-20] MEDS: SPIRONOLACTONE 25 MG TABLET PO (08:57)
[2023-07-20] MEDS: lamoTRIgine 25 MG TABLET 75 MG PO (08:57)
[2023-07-20] MEDS: SACUBITRIL/VALSARTAN 24-26 MG TABLET 1 TAB PO (08:58)
--- NOTE | 2023-07-20 10:50 | PM.IMPN ---
Subjective Date/time seen: 07/20/23 10:50 Objective Data Vital Signs Vital Signs: Vital Signs - 24 hr 07/19/23 16:00 07/20/23 00:00 07/20/23 08:00 Temperature 96.1 F L 96.9 F L 96.5 F L Pulse Rate 72 72 77 Respiratory Rate 18 16 17 Blood Pressure 124/42 L 130/50 L 109/47 L Pulse Oximetry 95 95 92 Oxygen Delivery Room Air Room Air Room Air Intake/Output Intake/Output: Intake & Output 07/17/23 07/18/23 07/19/23 07/20/23 23:59 23:59 23:59 23:59 Intake Total 1780 2500 1660 450 Output Total 1100 Balance 680 2500 1660 450 Meds/Results Medications: Active Medications Generic Name Dose Route Start Last Admin Trade Name Freq PRN Reason Stop Dose Admin Acetaminophen 650 mg 07/15/23 02:23 Acetaminophen 325 Mg Tablet PO Q4H PRN Mild Pain (1-3) or Fever Amoxicillin/Clavulanate Potassium 1 tablet 07/19/23 21:00 07/20/23 05:54 Amoxicillin/Clavulanate K 500-125 Mg Tab PO 07/24/23 14:01 1 tablet Q8HR CATALINO Administration Apixaban 2.5 mg 07/15/23 21:00 07/20/23 08:57 Apixaban 2.5 Mg Tablet PO 2.5 mg Q12HR CATALINO Administration Atorvastatin Calcium 80 mg 07/15/23 21:00 07/19/23 20:57 Atorvastatin 40 Mg Tablet PO 80 mg HS CATALINO Administration Dextrose 12.5 gm 07/15/23 15:53 Dextrose 50% 25 Gm/50 Ml Syringe IV PUSH PRN PRN Hypoglycemia Protocol Gabapentin 100 mg 07/15/23 21:00 07/19/23 20:57 Gabapentin 100 Mg Capsule PO 100 mg HS CATALINO Administration Glucagon 1 mg 07/15/23 15:53 Glucagon For Inj 1 Mg Vial IM PRN PRN Hypoglycemia Protocol Glucose 15 gm 07/15/23 15:53 Glucose Oral Gel 15 Gm Of Glucse In 37.5 Gm Tube PO PRN PRN Hypoglycemia Protocol Dextrose 1,000 mls @ 100 mls/hr 07/15/23 15:53 Dextrose 5% 1,000 Ml IVPB PRN PRN Hypoglycemia Protocol Insulin Human Lispro 4 - 8 units 07/15/23 08:00 07/20/23 07:33 Insulin Human Lispro (*Bkc) 1,000 Units/10 Ml Vial SUB-Q Not Given [facility] Protocol Lamotrigine 75 mg 07/15/23 10:30 07/20/23 08:57 Lamotrigine 25 Mg Tablet PO 75 mg Q12HR CATALINO Administration Levetiracetam 1,000 mg 07/15/23 09:00 07/20/23 08:57 Levetiracetam 500 Mg Tablet PO 1,000 mg Q12HR CATALINO Administration Levothyroxine Sodium 75 mcg 07/15/23 06:30 07/20/23 05:54 Levothyroxine Sodium 75 Mcg Tablet PO 75 mcg DAILY@0630 CATALINO Administration Mirabegron 50 mg 07/15/23 09:00 07/20/23 08:57 Mirabegron 25 Mg Er Tablet PO 08/14/23 08:59 50 mg DAILY CATALINO Administration Montelukast Sodium 10 mg 07/15/23 09:00 07/20/23 08:57 Montelukast Sodium 10 Mg Tablet PO 10 mg DAILY CATALINO Administration Polyethylene Glycol 17 gm 07/15/23 09:00 07/20/23 08:58 Polyethylene Glycol 3350 17 Gm Powd.Pack PO Not Given QAM CATALINO Sacubitril/Valsartan 1 tab 07/15/23 09:00 07/20/23 08:58 Sacubitril/Valsartan 24-26 Mg Tablet PO 1 tab Q12HR CATALINO Administration Spironolactone 25 mg 07/15/23 09:00 07/20/23 08:57 Spironolactone 25 Mg Tablet PO 25 mg DAILY CATALINO Administration Venlafaxine HCl 75 mg 07/15/23 09:00 07/20/23 08:57 Venlafaxine Hcl Xr 75 Mg Cap.Er.24h PO 75 mg DAILY CATALINO Administration Vitamin D 1,000 units 07/15/23 09:00 07/20/23 08:57 Cholecalciferol 1,000 Units Tablet PO 1,000 units DAILY CATALINO Administration Radiology Results: ITS Impressions Chest X-Ray 07/15/23 05:41 Impression: Clear lungs. Probable chronic, possibly healed, fracture deformity of the surgical neck of the proximal right humerus. Renal Ultrasound 07/18/23 13:30 IMPRESSION: Atrophic kidneys. Cholelithiasis. Labs Labs: Laboratory Results - last 24 hr 07/15/23 07/19/23 07/20/23 12:06 11:40 05:05 WBC 6.3 RBC 3.51 L Hgb 9.9 L Hct 32.6 L MCV 92.9 MCH 28.2 MCHC 30.4 L RDW 14.4 Plt Count 249 MPV 9.2 Immature Gran % (Auto
[2023-07-20] MEDS: INSULIN HUMAN LISPRO (*BKC) 1,000 UNITS/10 ML VIAL SUB-Q (11:58)
[2023-07-20 12:12] LABS: Glucose Point of Care 181 mg/dl (65-105)
[2023-07-20 12:13] LABS: Glucose Point of Care 232 mg/dl (65-105)
[2023-07-20 12:14] LABS: Glucose Point of Care 173 mg/dl (65-105)
[2023-07-20 12:15] LABS: Glucose Point of Care 288 mg/dl (65-105)
[2023-07-20 12:16] LABS: Glucose Point of Care 240 mg/dl (65-105)
[2023-07-20 12:16] LABS: Glucose Point of Care 106 mg/dl (65-105)
--- NOTE | 2023-07-20 12:33 | PM.DS ---
DS: Admitting Diagnosis Discharge Date 07/20/23 Admitting Diagnosis acute kidney injury superimposed on chronic kidney disease urinary tract infection chronic combined systolic and diastolic congestive heart failure atrial fibrillation type 2 diabetes DS: Discharge Diagnosis Discharge Diagnosis (1) Bacteremia due to Gram-negative bacteria: Code(s): R78.81 - Bacteremia Status: Acute (2) Acute kidney injury superimposed on CKD: Code(s): N17.9 - Acute kidney failure, unspecified; N18.9 - Chronic kidney disease, unspecified Status: Acute (3) UTI (urinary tract infection): Qualifiers: Hematuria presence: without hematuria Urinary tract infection type: acute cystitis Qualified Code(s): N30.00 - Acute cystitis without hematuria Code(s): N39.0 - Urinary tract infection, site not specified Status: Acute (4) Chronic combined systolic and diastolic CHF (congestive heart failure): Code(s): I50.42 - Chronic combined systolic (congestive) and diastolic (congestive) heart failure Status: Chronic (5) Atrial fibrillation: Code(s): I48.91 - Unspecified atrial fibrillation Status: Acute (6) Type 2 diabetes mellitus: Qualifiers: Chronic kidney disease stage: stage 3 (moderate) Chronic kidney disease stage 3 subtype: unspecified whether 3a or 3b Diabetes mellitus complication detail: with chronic kidney disease Diabetes mellitus complication status: with kidney complications Diabetes mellitus fci insulin use: with intermediate manager use Qualified Code(s): E11.22 - Type 2 diabetes mellitus with diabetic chronic kidney disease; N18.30 - Chronic kidney disease, stage 3 unspecified; Z79.4 - intermediate manager (current) use of insulin Code(s): E11.9 - Type 2 diabetes mellitus without complications Status: Chronic DS: Summary Hospital Course Reason for hospitalization: acute kidney injury superimposed on chronic kidney disease urinary tract infection chronic combined systolic and diastolic congestive heart failure atrial fibrillation type 2 diabetes Hospital Course: this is an 83-year-old female who presented to the hospital on 07/15/2023 with complaint of generalized weakness and difficulty standing at her assisted living facility. Workup in the hospital included chest x-ray which was negative for any acute cardiopulmonary process, probable chronic healing fracture deformity of the surgical neck of the proximal right humerus. Renal ultrasound shown atrophy of the kidneys and cholelithiasis. UA was performed which showed 1+ urine protein, 3+ urine blood, positive nitrate, 1+ leukocyte, 6-10 urine RBC, 7 and 9 urine WBC, 3+ urine bacteria. Blood and urine cultures showing E coli On final read. New blood cultures obtained. Patient currently on Augmentin and will finish a 10 day course. We will continue to monitor her blood cultures over the next 5 days. Patient is stable for discharge back to her nursing facility today. She will be getting home health for PT and OT at her facility For continued rehab needs. final diagnosis: acute kidney injury superimposed on chronic kidney disease, urinary tract infection, bacteremia Status at Discharge Cognitive/behavioral status at discharge: alert oriented x3 Functional status at discharge: uses cane/walker Overall status at discharge: patient is progressing back to baseline Time Spent with Patient Time attestation: Total time spent providing and/or coordinating discharge services: Time spent: Greater than 30 minutes Exam Narrative: General: In no acute distress, well nourished Head: atraumatic, no encephalopathy Eyes: EOMI, PERRLA, sclera clear ENT: moist mucous membranes, nasal passages clear Neck: supple, no JVD, no adenopathy, trachea midline Cardiac: Normal S1 and S2. RRR, No murmur, gallops or friction rubs, peripheral pulses intact. Respiratory: Lungs clear to auscultation, no adventitious l
[2023-07-20 14:23] LABS: Glucose Point of Care 227 mg/dl (65-105)
--- NOTE | 2023-07-20 15:35 | PC.NURSE ---
Discharge instructions reviewed with pt and daughter. Pt transferred to wheelchair and wheeled to front of hospital by family.
--- NOTE | 2023-07-21 13:11 | PC.NURSE ---
Discharge call back attempted, no answer
--- NOTE | 2023-07-22 09:27 | PC.NURSE ---
discharge call back attempted, no answer
--- NOTE | 2023-07-25 09:18 | PC.NURSE ---
unable to contact for dc call back
== END 2023-07-20 15:35 | DRG 690 ==
LOC: CHSED 02:23 → CHS2ND 02:58
PROVIDERS: Nurse Practitioner; Admitting Provider Internal Medicine; Emergency Provider Emergency Medicine; PCP Internal Medicine; Visit Provider Nurse Practitioner Acute Care
DX: N39.0 Urinary tract infection, site not specified (principal); N17.9 Acute kidney failure, unspecified; N18.30 Chronic kidney disease, stage 3 unspecified; I13.0 Hypertensive heart and chronic kidney disease with heart failure and stage 1 through stage 4 chronic kidney disease, or unspecified chronic kidney disease; I50.42 Chronic combined systolic (congestive) and diastolic (congestive) heart failure; I48.20 Chronic atrial fibrillation, unspecified; E03.9 Hypothyroidism, unspecified; E78.5 Hyperlipidemia, unspecified; E11.22 Type 2 diabetes mellitus with diabetic chronic kidney disease; E11.42 Type 2 diabetes mellitus with diabetic polyneuropathy; E55.9 Vitamin D deficiency, unspecified; R56.9 Unspecified convulsions; F32.A Depression, unspecified; Z20.822 Contact with and (suspected) exposure to COVID-19; Z86.711 Personal history of pulmonary embolism; Z79.01 Long term (current) use of anticoagulants; R78.81 Bacteremia; B96.20 Unspecified Escherichia coli [E. coli] as the cause of diseases classified elsewhere; Z86.73 Personal history of transient ischemic attack (TIA), and cerebral infarction without residual deficits; Z79.4 Long term (current) use of insulin
CPT/HCPCS: 36415; 71045; 76775; 80053; 81001; 82948; 83605; 83735; 83880; 84145; 85025; 86140; 87040; 87077; 87086; 87088; 87147; 87186; 87637; 93005; 96361; 96365; 97110; 97161; 97165; 97530; 97535; 99285; A9270; G0378; J0696; J1815; J1940; J7030

== ENCOUNTER 2023-07-29 07:57 | Observation (INO) | payer MEDICARE, SELFPAY ==
[2023-07-29] VITALS (25 sets, daily range): BP systolic 118–136; BP diastolic 44–75; PULSE 64–73; RESP 16–20; TEMP 35.7–36.7; O2SAT 91–98; BMI 30.7
--- NOTE | ~2023-07-29 | CT_ITS ---
EXAMINATION: CT brain wo con DATE: 07/29/2023 08:34 INDICATION: Fall. TECHNIQUE: Computed tomography (CT) of the head was performed without intravenous contrast. The mA wa s adjusted according to patient size. Iterative reconstruction technique was employed. The dose-lengt h product was 605.33 mGy-cm. COMPARISON: Head CT 03/21/2023 FINDINGS: There is an old infarct in left temporal occipital region. There are scattered areas of low attenuation in the cerebral white matter. There is no intracranial hemorrhage, acute infarction, or abnormal intracranial mass lesion. The ventricles are normal in size. There are likely changes of ocu lar lens replacement surgeries. There is mucosal thickening in the paranasal sinuses. The maxillary s inuses are small and completely opacified on the right and nearly completely opacified on the left. T he mastoid air cells are normal. There are likely changes of ocular lens replacement surgeries. IMPRESSION: 1. Old infarct in left temporal occipital region. 2. Stable moderate nonspecific cerebral white matter disease, which likely represents chronic small v essel ischemic disease. 3. Chronic sinusitis. Reviewed, dictated and finalized at location A. IMPRESSION: 1. Old infarct in left temporal occipital region. 2. Stable moderate nonspecific cerebral white matter disease, which likely repr esents chronic small vessel ischemic disease. 3. Chronic sinusitis.
--- NOTE | ~2023-07-29 | XR_ITS ---
EXAMINATION: XR pelvis 1-2V DATE: 07/29/2023 08:34 INDICATION: Sacrococcygeal injury. Low back pain. TECHNIQUE: An anteroposterior view of the pelvis was obtained. COMPARISON: Pelvis radiograph 02/12/2023 FINDINGS: Bone alignment is normal. No fracture. There is mild lower lumbar spondylosis. There is mil d osteoarthritis of the hips. IMPRESSION: 1. Mild osteoarthritis of the hips. Reviewed, dictated and finalized at location A.
--- NOTE | ~2023-07-29 | CT_ITS ---
EXAMINATION: CT lumbar spine wo con DATE: 07/29/2023 08:34 INDICATION: Low back pain. Fall. TECHNIQUE: Computed tomography (CT) of the lumbar spine was performed without intravenous contrast. A utomated exposure control and iterative reconstruction technique were employed. The dose-length produ ct was 1161.47 mGy-cm. COMPARISON: CT abdomen and pelvis 03/21/2023 FINDINGS: There is 3 mm anterolisthesis of L3 on L4. There is a compression fracture of T12 with less than 1/5 loss of height, new from 03/21/2023. There is mildly decreased disc height at L1-L2 and L3-L 4. The following disc levels are specifically discussed: L1-L2: The disc is bulging. There is mild bilateral facet joint osteoarthritis. There is mild bilater al neural foraminal stenosis. There is mild central canal stenosis. L2-L3: The disc is bulging. There is mild bilateral facet joint osteoarthritis. There is mild bilater al neural foraminal stenosis. There is mild central canal stenosis. L3-L4: The disc is bulging. There is severe bilateral facet joint osteoarthritis. There is mild bilat eral neural foraminal stenosis. There is mild central canal stenosis. L4-L5: The disc is bulging. There is severe bilateral facet joint osteoarthritis. There is mild bilat eral neural foraminal stenosis. There is mild central canal stenosis. L5-S1: The disc is bulging. There is severe bilateral facet joint osteoarthritis. There is mild bilat eral neural foraminal stenosis. There is mild central canal stenosis. IMPRESSION: 1. Acute versus subacute T12 compression fracture, new from 03/21/2023. 2. Mild lumbar spondylosis. Reviewed, dictated and finalized at location A.
--- NOTE | ~2023-07-29 | CT_ITS ---
EXAMINATION: CT thoracic spine wo con DATE: 07/30/2023 09:02 INDICATION: Midline thoracic back pain. T12 compression fracture. TECHNIQUE: Computed tomography (CT) of the thoracic spine was performed without intravenous contrast. Automated exposure control and iterative reconstruction technique were employed. Exam dose: 1198.23 mGy-cm total exam DLP. 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 Subacute or old anterior wedge compression fracture of C7. There is mild anterior wedge compression fracture of T12, likely recent, with approximately 17% loss of height anteriorly and approximately 20% loss of height at the mid depth of the vertebral body. No other fracture is evident. Diffuse idiopathic skeletal hyperostosis of the thoracic spine. 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 Reviewed, dictated and finalized at location A.
--- NOTE | ~2023-07-29 | XR_ITS ---
EXAMINATION: XR chest 1V portable DATE: 07/29/2023 09:38 INDICATION: Dyspnea TECHNIQUE: frontal view of the chest was obtained. COMPARISON: Chest radiograph dated 07/15/[address] dated 03/21/2023 FINDINGS: Small lung volumes. Opacities at the left lung base which appear to correspond to atelectasis along s alba a small left paracardial fat pad although differential includes pneumonia. Calcified left perihil ar nodule consistent with old granulomatous disease. No pulmonary edema, pleural effusion or pneumoth orax. The cardiomediastinal silhouette is normal. Old healed proximal right humeral fracture. IMPRESSION: 1. Opacities at the left lung base most likely lingular atelectasis along side a small paracardial fa t pad with differential including pneumonia. Reviewed, dictated and finalized at location A. IMPRESSION: 1. Opacities at the left lung base most likely lingular atelectasis along side a small paracardial fat pad with differential including pneumonia.
--- NOTE | 2023-07-29 08:18 | ED.GENADULT ---
HPI - General Adult General Chief complaint: Back Pain/Injury Stated complaint: fall injury; lower back pain Time Seen by Provider: 07/29/23 08:08 History of Present Illness HPI narrative: This is an 83-year-old female on Eliquis for AFib presenting after ground level fall. She was putting limits away when she fell backwards landed backside. She was unable to up assistance. Eventually she was able call help system feet and she was brought to the hospital for evaluation. Patient is currently complaining of lower back pain. She was able to bear weight when she was to feet no head trauma but she is on anticoagulation patient's recent discharge hospital treated for a tract infection. Patient currently denies fevers chills chest pain difficulty breathing abdominal pain dysuria urinary urgency or frequency. Related Data Home Medications Medication Instructions Recorded Confirmed atorvastatin 80 mg tablet 80 mg PO HS 03/21/23 07/29/23 insulin aspar prot-insulin aspart See Rx Instructions .Route .COMPLEX 07/15/23 07/29/23 100 unit/mL (70-30) subcutaneous pen (Novolog Mix 70-30FlexPen U-100) lamotrigine 25 mg tablet See Rx Instructions .Route .COMPLEX 07/15/23 07/15/23 polyethylene glycol 3350 17 gram 17 g PO QAM PRN Constipation 07/29/23 07/29/23 oral powder packet Allergies Allergy/AdvReac Type Severity Reaction Status Date / Time naproxen Allergy Unknown Verified 03/21/23 16:57 [facility] Past Medical History Medical History Ankle pain, right Chronic combined systolic and diastolic CHF (congestive heart failure) CVA (cerebral vascular accident) History of seizure Hyperlipidemia Hypertension Hypothyroidism Hypoxic Leukocytosis Peripheral neuropathy Pulmonary embolism Type 2 diabetes mellitus Vitamin D deficiency Surgical History Surgical History History of bilateral tubal ligation Status post cataract extraction of both eyes with insertion of intraocular lens Family History Family History Father Alcoholism Mother Breast cancer Ovarian cancer Social History Social History Social History: Patient lives at home with her of over 60 years. She stated that she briefly smoked for a couple of years when she was young. She denies any significant alcohol use. She ambulates with a Rollator. Code status: DNR/DNI (per patient request) Surrogate decision maker: Smoking status: Never smoker Second hand tobacco smoke exposure: No Alcohol intake: former Substance use: never Substance use type: does not use Do You Feel Safe in your Home?: Yes Lack of Transportation: No Lack of Food: Never True Current Housing: I Have Housing Concerned About Future Housing: No Difficulty Paying Gas/Electric Bills: No Difficulty Paying for Meds: No Currently Unemployed: No Education: High School Diploma/GED Difficulty w/ Childcare or Family Care: No Spiritual care concerns: No Exam Narrative: APPEARANCE: No apparent distress. Head: atraumatic. EYES: EOMI, NOSE: Atraumatic NECK: Trachea midline RESPIRATORY: No increased rate of breathing, ctab CARDIOVASCULAR: RRR, no peripheral edema ABDOMINAL: Non-distended soft nontender MUSCULOSKELETAl: No obvious deformities NEURO: Alert. Cranial nerves 2-12 grossly intact. Sensation light touch, motor function cerebellar function intact for 4 extremities. Gait exam was Deferred PSYCHIATRIC: Normal affect Course Vital Signs Vital signs: Vital Signs Temperature 97.5 F L 07/29/23 08:01 Pulse Rate 73 07/29/23 08:01 Respiratory Rate 16 07/29/23 08:01 Blood Pressure 127/64 07/29/23 08:01 Pulse Oximetry 95 07/29/23 08:01 Oxygen Delivery Room Air 07/29/23 08:01 Temperature 97.5 F
[2023-07-29] MEDS: ACETAMINOPHEN 500 MG TABLET 1000 MG PO (08:37)
--- NOTE | 2023-07-29 09:07 | ECG_ITS ---
Test Date: 2023-07-29 09:18:36 Measurements Intervals Rolla Rate: 70 P: 63 KS: 191 QRS: -24 QRSD: 156 T: 111 QT: 442 QTc: 479 Interpretive Statements SINUS RHYTHM WITH OCCASIONAL VENTRICULAR PREMATURE COMPLEXES LEFT BUNDLE BRANCH BLOCK [120+ ms QRS DURATION, 80+ ms Q/S IN V1/V2, 85+ ms R IN I/aVL/V5/V6] ABNORMAL ECG Compared to ECG 07/15/2023 01:11:41 Ventricular premature complex(es) now present Sinus tachycardia no longer present Left-axis deviation no longer present Electronically Signed On 07-29-2023 11:03:23 CDT by Joshua Stevens M.D.
--- NOTE | 2023-07-29 09:14 | PC.NURSE ---
wanted to test ambulatory capabilities of pt; used a gait belt and walker; pt only able to stand up and take 1 step before having to sit back down; advised to run more tests
[2023-07-29] MEDS: LIDOCAINE 5% PATCH 1 PATCH TRANSDERM (09:24)
[2023-07-29 09:34] LABS: Basophils Absolute Auto 0.08 K/mm3 (0.00-0.10); Basophils Percent Auto 0.8 % (0.0-1.0); Eosinophils Absolute Auto 0.24 K/mm3 (0.02-0.50); Eosinophils Percent Auto 2.5 % (1.0-6.0); Hematocrit 36.8 % (35.0-42.0); Hemoglobin 11.4 g/dL (11.7-13.8); Immature Granulocyte Absolute 0.09 K/mm3 (0.00-0.00); Immature Granulocyte Percent A 0.9 % (0.0-0.0); Lymphocytes Absolute Auto 1.27 K/mm3 (1.10-4.50); Lymphocytes Percent Auto 13.3 % (18.0-42.0); Mean Corpuscular Hemoglobin 29.3 pg (27.0-31.0); Mean Corpuscular Volume 94.6 fL (78.0-102.0); Monocytes Percent Auto 5.3 % (2.0-11.0); Neutrophils Absolute Auto 7.34 K/mm3 (1.70-7.20); Neutrophils Percent Auto 77.2 % (50.0-70.0); Platelet Count Result 303 K/mm3 (150-420); Red Blood Count 3.89 M/mm3 (4.20-5.40); Red Cell Distribution Width 14.6 % (11.6-14.4); White Blood Count 9.5 K/mm3 (4.8-10.8)
[2023-07-29 09:52] LABS: Alanine Aminotransferase 38 U/L (14-59); Albumin Level 3.3 g/dL (3.4-5.0); Alkaline Phosphatase 96 U/L (46-116); Anion Gap 6 mmol/L (4-12); Aspartate Amino Transferase 30 U/L (15-37); Bilirubin,Total 0.3 mg/dL (0.00-1.00); Blood Urea Nitrogen 27 mg/dL (7-18); Calcium 8.9 mg/dL (8.5-10.1); Carbon Dioxide 28 mmol/L (21-32); Chloride 105 mmol/L (98-108); Estimated CRCL calculation 23 ml/min; Estimated Glomerular Filt Rate 27; Glucose 95 mg/dL (70-99); Magnesium 2.1 mg/dL (1.8-2.4); Osmolality Calculated 293 mOsm/kg (285-295); Potassium 4.7 mmol/L (3.5-5.1); Sodium 139 mmol/L (136-145); Total Protein 7.2 g/dL (6.4-8.2); Troponin I 12.3 ng/L (0.00-60.4)
[2023-07-29 09:56] LABS: SARS-CoV-2 RNA PCR Negative (Negative)
[2023-07-29 09:57] LABS: Influenza A QL RT-PCR Negative (Negative); Influenza B QL RT-PCR Negative (Negative); RSV RNA, RT-PCR Negative (Negative)
[2023-07-29 10:18] LABS: NT Pro B Type Natriuretic Pept 663 pg/mL (0-450)
[2023-07-29 10:42] LABS: Appearance Urine Clear (Clear); Bilirubin Urine Negative (Negative); Blood Urine 2+ (Negative); Color Urine Light Yellow (Yellow); Glucose Urine UA Negative (Negative); Ketones Urine Negative (Negative); Leukocyte Esterase Ur Negative LEU/UL (Negative); Nitrate Urine Negative (Negative); Protein Urine Negative (Negative); Urobilinogen Urine 0.2 mg/dL (0.2-1.0); pH Urine 6.5 (5.0-8.0)
--- NOTE | 2023-07-29 10:47 | PC.NURSE ---
daughter in with pt, call pierce in reach. no needs at this time. awaiting urine results
[2023-07-29 10:53] LABS: Add Urine Microscopic? YES; Bacteria Urine None seen /hpf; Mucus Urine Few /lpf; RBC Urine 51-75 /hpf (0-2); Squamous Epithelial Cell Urine Noted /hpf (Few); WBC Urine None seen /hpf (0-3)
--- NOTE | 2023-07-29 11:07 | PC.NURSE ---
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 no need for iv at this time. pt admitted for pain control and pt/ot eval .
--- NOTE | 2023-07-29 11:08 | PC.NURSE ---
pt back feeling better after lidocaine patch applied. pt and daughter notified of admission per dr russell.
--- NOTE | 2023-07-29 11:30 | ADMGEN ---
This patient, Nara Post, was admitted to 2nd Floor Room 208-2. Patient/family oriented to hospital policies and general routines including ID bracelet, bed and alarms, visiting hours, pain management, procedures, bathroom and other care routines, personal items, smoking policy, room service/diet, and visiting hours. Information on how to activate the Rapid Response Team has been discussed. Patient/Family are encouraged to report perceived risks to care and to ask questions if they do not understand what they are told or what they should do.
[2023-07-29 12:30] LABS: Troponin I 11.6 ng/L (0.00-60.4)
--- NOTE | 2023-07-29 14:43 | PM.IMHP ---
H&P: HPI History of Present Illness Date/Time: 07/29/23 17:35 Chief Complaint: Back pain, fall Narrative: This is an 83-year-old female patient well known to this facility who presents here after a ground level fall at assisted living facility. Patient stated she was bent over to put away some table clots and she stood up to start walking, had her walker nearby but when she reached for it it slid out from underneath her and she proceeded to fall downward landing on her buttocks. Patient has significant mid to lower back pain so she was sent to the emergency department by EMS. In the emergency department CT scan of the lumbar spine shows T12 compression fracture with loss of disc height, no retropulsion not a burst or Chance fracture. In the ER patient received pain medication and attempted ambulation which was not able to be accomplished due to pain and spasming in her back. Patient has a history of frequent recurrent urinary tract infections in her urine was checked in the emergency department no sign of infection. Patient also has a history of chronic kidney disease and renal function is near recent baseline. Patient denies any difficulty breathing, chest pain denies seizure activity. I spoke to patient's daughter who states that patient recently started seeing an soc analyst for her diabetes and her diabetes has been much better controlled on NovoLog 70 30. Prior hospitalizations have had several different insulin regimens but we will continue home treatment with 70 30 though decrease the dose slightly because of carb controlled diet while admitted. PT and OT have been consulted. There is no distal motor or sensation deficit no bowel or bladder concerns and no saddle paresthesias. Review of Systems Review of Systems: All systems reviewed & are unremarkable except as noted in HPI and below [facility] Past Medical History Medical History Ankle pain, right Chronic combined systolic and diastolic CHF (congestive heart failure) CVA (cerebral vascular accident) History of seizure Hyperlipidemia Hypertension Hypothyroidism Hypoxic Leukocytosis Peripheral neuropathy Pulmonary embolism Type 2 diabetes mellitus Vitamin D deficiency Surgical History Surgical History History of bilateral tubal ligation Status post cataract extraction of both eyes with insertion of intraocular lens Family History Family History Father Alcoholism Mother Breast cancer Ovarian cancer Social History Social History Social History: Patient lives at home with her of over 60 years. She stated that she briefly smoked for a couple of years when she was young. She denies any significant alcohol use. She ambulates with a Rollator. Code status: DNR/DNI (per patient request) Surrogate decision maker: Smoking status: Never smoker Second hand tobacco smoke exposure: No Alcohol intake: never Substance use: never Substance use type: does not use Do You Feel Safe in your Home?: Yes Lack of Transportation: No Lack of Food: Never True Current Housing: I Have Housing Concerned About Future Housing: No Difficulty Paying Gas/Electric Bills: No Difficulty Paying for Meds: No Currently Unemployed: No Education: Decline to Answer Difficulty w/ Childcare or Family Care: No Spiritual care concerns: No Meds Home Medications and Allergies Home Medications Medication Instructions Recorded Confirmed Type cholecalciferol (vitamin D3) 25 25 mcg PO DAILY #30 tabs 03/11/23 07/29/23 Rx mcg (1,000 unit) tablet gabapentin 100 mg capsule 100 mg PO HS #30 caps 03/11/23 07/29/23 Rx levothyroxine 75 mcg tablet 75 mcg PO DAILY #30 tabs 03/11/23 07/29/23 Rx mirabegron 50 mg tablet,exte
[2023-07-29 17:08] LABS: Glucose Point of Care 203 mg/dl (65-105)
[2023-07-29] MEDS: HYDROcodone/acetaminophen (*CRX) 5-325 MG TABLET 1 TAB PO ×2 (17:18→21:31)
[2023-07-29] MEDS: ATORVASTATIN 40 MG TABLET 80 MG PO (20:08)
[2023-07-29] MEDS: GABAPENTIN 100 MG CAPSULE PO (20:08)
[2023-07-29] MEDS: APIXABAN 2.5 MG TABLET PO (20:08)
[2023-07-29] MEDS: levETIRAcetam 500 MG TABLET 1000 MG PO (20:08)
[2023-07-29] MEDS: lamoTRIgine 100 MG TABLET PO (20:08)
[2023-07-29] MEDS: SACUBITRIL/VALSARTAN 24-26 MG TABLET 1 TAB PO (20:08)
[2023-07-29 22:53] LABS: Glucose Point of Care 221 mg/dl (65-105)
[2023-07-30] VITALS: BP 121/54; PULSE 74; RESP 16; TEMP 36; O2SAT 97
[2023-07-30] MEDS: HYDROcodone/acetaminophen (*CRX) 5-325 MG TABLET 1 TAB PO ×5 (03:18→20:01)
[2023-07-30] MEDS: LEVOTHYROXINE SODIUM 75 MCG TABLET PO (06:10)
[2023-07-30 07:33] LABS: Glucose Point of Care 86 mg/dl (65-105)
[2023-07-30 08:00] VITALS: BP 121/51; PULSE 73; RESP 16; TEMP 36; O2SAT 90
[2023-07-30] MEDS: MIRABEGRON 25 MG ER TABLET 50 MG PO (08:04)
[2023-07-30] MEDS: SACUBITRIL/VALSARTAN 24-26 MG TABLET 1 TAB PO ×2 (08:05→20:45)
[2023-07-30] MEDS: lamoTRIgine 100 MG TABLET PO ×2 (08:05→20:45)
[2023-07-30] MEDS: MONTELUKAST SODIUM 10 MG TABLET PO (08:05)
[2023-07-30] MEDS: APIXABAN 2.5 MG TABLET PO ×2 (08:05→20:43)
[2023-07-30] MEDS: levETIRAcetam 500 MG TABLET 1000 MG PO ×2 (08:06→20:44)
[2023-07-30] MEDS: CHOLECALCIFEROL 1,000 UNITS TABLET 1000 UNITS PO (08:06)
[2023-07-30] MEDS: SPIRONOLACTONE 25 MG TABLET PO (08:07)
[2023-07-30] MEDS: VENLAFAXINE HCL XR 75 MG CAP.ER.24H PO (08:07)
[2023-07-30 11:43] LABS: Glucose Point of Care 178 mg/dl (65-105)
--- NOTE | 2023-07-30 12:25 | PM.IMPN ---
Progress Note: A&P Assessment and Plan (1) Compression fracture: Status: Acute Assessment and Plan: New T12 compression fracture since March 2023, moderate midline tenderness Pain control PT/OT, likely need swing bed rehabilitation before returning to assisted living facility If pain is unable to be controlled, consider referral for vertebroplasty Will obtain CT thoracic spine tomorrow to rule out any further thoracic compression fractures (2) CKD (chronic kidney disease): Code(s): N18.9 - Chronic kidney disease, unspecified Status: Acute Assessment and Plan: Patient near baseline, avoid nephrotoxins Ensure adequate hydration, careful to balance with history of CHF (3) Chronic anticoagulation: Code(s): 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 Patient is getting [place] q4h. CT scan of thoracic spine ordered to assess for further fractures. An old appearing T7 fracture noted but not likely acute or causing patient's current symptoms. Ordered scheduled methocarbamol to aid in pain/spasm control with less likely neurologic side effects. Review of Systems Review of Systems: All systems reviewed & are unremarkable except as noted in HPI and below Exam Narrative: APPEARANCE: Uncomfortable appearing especially with raising and lower in the head of the bed and attempting to ambulate Head: atraumatic. EYES: EOMI, NOSE: Atraumatic NECK: Trachea midline RESPIRATORY: No increased rate of breathing, clear to auscultation CARDIOVASCULAR: RRR, no peripheral edema ABDOMINAL: Non-distended soft nontender MUSCULOSKELETAl: No obvious deformities NEURO: Awake Alert to baseline mental status, well known to this provider and this facility. Sensation light touch, motor function cerebellar function intact for 4 extremities. PSYCHIATRIC: Normal affect Objective Data Vital Signs Vital Signs: Vital Signs - 24 hr 07/30/23 00:00 07/30/23 08:00 Temperature 36.0 C L 36.0 C L Pulse Rate 74 73 Respiratory Rate 16 16 Blood Pressure 121/54 L 121/51 L Pulse Oximetry 97 90 Oxygen Delivery Room Air Room Air Intake/Output Intake/Output: Intake & Output 07/27/23 07/28/23 07/29/23 07/30/23 23:59 23:59 23:59 23:59 Intake Total 750 770 Output Total 10 Balance 740 770 Meds/Results Medications: Active Medications Generic Name Dose Route Start Last Admin Trade Name Freq PRN Reason Stop Dose Admin Acetaminophen 650 mg 07/29/23 15:55 Acetaminophen 325 Mg Tablet PO Q4H PRN Pain Rated 5 or Less Hydrocodone Bitart/Acetaminophen 1 tab 07/29/23 15:55 07/30/23 12:01 Hydrocodone/Acetaminophen (*Crx) 5-325 Mg Tablet PO 1 tab Q4H PRN Administration Pain Rated 7-10 Apixaban 2.5 mg 07/29/23 21:00 07/30/23 08:05 Apixaban 2.5 Mg Tablet PO 2.5 mg Q12HR CATALINO Administration Atorvastatin Calcium 80 mg 07/29/23 21:00 07/29/23 20:08 Atorvastatin 40 Mg Tablet PO 80 mg HS CATALINO Administration Dextrose 12.5 gm 07/29/23 15:56 Dextrose 50% 25 Gm/50 Ml Syringe IV PUSH PRN PRN Hypoglycemia Protocol Gabapentin 100 mg 07/29/23 21:00 07/29/23 20:08 Gabapentin 100 Mg Capsule PO 100 mg HS CATALINO Administration Glucagon 1 mg 07/29/23 15:56 Glucagon For Inj 1 Mg Vial IM PRN PRN Hypoglycemia
[2023-07-30] MEDS: methocarbamoL 500 MG TABLET PO ×2 (14:52→18:05)
[2023-07-30 16:00] VITALS: BP 136/55; PULSE 74; RESP 16; TEMP 36.2; O2SAT 98
[2023-07-30 16:41] LABS: Glucose Point of Care 208 mg/dl (65-105)
[2023-07-30 19:38] VITALS: PULSE 68; RESP 16; O2SAT 94
[2023-07-30] MEDS: ATORVASTATIN 40 MG TABLET 80 MG PO (20:43)
[2023-07-30] MEDS: GABAPENTIN 100 MG CAPSULE PO (20:45)
[2023-07-30 20:49] LABS: Glucose Point of Care 157 mg/dl (65-105)
--- NOTE | 2023-07-30 20:59 | PC.NURSE ---
Pt repositioned and helped to position of comfort for HS. She has no Lido patch present and states she had one when she arrived but never had another placed. financial planning advisor informed so that pt can have it re-ordered in AM.
[2023-07-30 23:53] VITALS: BP 124/54; PULSE 73; RESP 16; TEMP 36.5; O2SAT 94
[2023-07-31] MEDS: HYDROcodone/acetaminophen (*CRX) 5-325 MG TABLET 1 TAB PO ×6 (00:02→21:20)
[2023-07-31] MEDS: methocarbamoL 500 MG TABLET PO ×4 (00:02→17:00)
[2023-07-31] MEDS: LEVOTHYROXINE SODIUM 75 MCG TABLET PO (05:58)
[2023-07-31 07:39] LABS: Glucose Point of Care 122 mg/dl (65-105)
[2023-07-31 07:47] VITALS: BP 119/60; PULSE 64; RESP 16; TEMP 36; O2SAT 95
[2023-07-31] MEDS: polyethylene glycoL 3350 17 GM POWD.PACK PO (08:20)
[2023-07-31] MEDS: SACUBITRIL/VALSARTAN 24-26 MG TABLET 1 TAB PO ×2 (08:22→21:20)
[2023-07-31] MEDS: APIXABAN 2.5 MG TABLET PO ×2 (08:22→21:20)
[2023-07-31] MEDS: levETIRAcetam 500 MG TABLET 1000 MG PO ×2 (08:22→21:20)
[2023-07-31] MEDS: VENLAFAXINE HCL XR 75 MG CAP.ER.24H PO (08:22)
[2023-07-31] MEDS: MIRABEGRON 25 MG ER TABLET 50 MG PO (08:23)
[2023-07-31] MEDS: SPIRONOLACTONE 25 MG TABLET PO (08:23)
[2023-07-31] MEDS: CHOLECALCIFEROL 1,000 UNITS TABLET 1000 UNITS PO (08:24)
[2023-07-31] MEDS: MONTELUKAST SODIUM 10 MG TABLET PO (08:24)
[2023-07-31] MEDS: lamoTRIgine 100 MG TABLET PO ×2 (08:25→21:20)
[2023-07-31 11:32] LABS: Glucose Point of Care 214 mg/dl (65-105)
[2023-07-31] MEDS: INSULIN HUMAN LISPRO (*BKC) 1,000 UNITS/10 ML VIAL SUB-Q (11:32)
--- NOTE | 2023-07-31 12:40 | PM.IMPN ---
Progress Note: A&P Assessment and Plan (1) Compression fracture: Status: Acute Assessment and Plan: New T12 compression fracture since March 2023, moderate midline tenderness Pain control PT/OT, likely need swing bed rehabilitation before returning to assisted living facility If pain is unable to be controlled, consider referral for vertebroplasty Will obtain CT thoracic spine tomorrow to rule out any further thoracic compression fractures 07/30: No other acute thoracic fractures on CT (2) CKD (chronic kidney disease): Code(s): N18.9 - Chronic kidney disease, unspecified Status: Acute Assessment and Plan: Patient near baseline, avoid nephrotoxins Ensure adequate hydration, careful to balance with history of CHF 07/30: Patient reminded to maintain adequate hydration She is forgoing drinking to avoid having to get up to urinate due to back pain Will check renal labs in AM, may need IV fluids (3) Chronic anticoagulation: Code(s): Z79.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 Patient choosing not to drink much to avoid having to use the restroom. Patient educated on the importance of maintaining adequate renal function. Continue therapy, expect Swing Bed on discharge. Review of Systems Review of Systems: All systems reviewed & are unremarkable except as noted in HPI and below Exam Narrative: APPEARANCE: Uncomfortable appearing especially with raising and lower in the head of the bed and attempting to ambulate Head: atraumatic. EYES: EOMI, NOSE: Atraumatic NECK: Trachea midline RESPIRATORY: No increased rate of breathing, clear to auscultation CARDIOVASCULAR: RRR, no peripheral edema ABDOMINAL: Non-distended soft nontender MUSCULOSKELETAl: No obvious deformities NEURO: Awake Alert to baseline mental status, well known to this provider and this facility. Sensation light touch, motor function cerebellar function intact for 4 extremities. PSYCHIATRIC: Normal affect Objective Data Vital Signs Vital Signs: Vital Signs - 24 hr 07/30/23 16:00 07/30/23 19:38 07/30/23 23:53 Temperature 36.2 C L 36.5 C Pulse Rate 74 68 73 Respiratory Rate 16 16 16 Blood Pressure 136/55 L 124/54 L Pulse Oximetry 98 94 94 Oxygen Delivery Room Air Room Air Room Air 07/31/23 07:47 Temperature 36.0 C L Pulse Rate 64 Respiratory Rate 16 Blood Pressure 119/60 Pulse Oximetry 95 Oxygen Delivery Room Air Intake/Output Intake/Output: Intake & Output 07/28/23 07/29/23 07/30/23 07/31/23 23:59 23:59 23:59 23:59 Intake Total 750 1960 800 Output Total 10 Balance 740 1960 800 Meds/Results Medications: Active Medications Generic Name Dose Route Start Last Admin Trade Name Freq PRN Reason Stop Dose Admin Acetaminophen 650 mg 07/29/23 15:55 Acetaminophen 325 Mg Tablet PO Q4H PRN Pain Rated 5 or Less Hydrocodone Bitart/Acetaminophen 1 tab 07/29/23 15:55 07/31/23 12:31 Hydrocodone/Acetaminophen (*Crx) 5-325 Mg Tablet PO 1 tab Q4H PRN Administration Pain Rated 7-10 Apixaban 2.5 mg 07/29/23 21:00 07/31/23 08:22 Apixaban 2.5 Mg Tablet PO 2.5 mg Q12HR CATALINO Administration Atorvastatin Calcium 80 mg 07/29/23 21:00 07/30/23 20:43 Atorvastatin 40 Mg Tablet PO 80 mg HS CATALINO Administration Dextrose 12.5 gm 07/29/23 15:56 Dextrose 50% 25 Gm/50 Ml Syringe
--- NOTE | 2023-07-31 13:28 | PC.NURSE ---
Post void bladder scan showed 10 ml residual.
[2023-07-31 16:00] VITALS: BP 132/59; PULSE 71; RESP 16; TEMP 35.9; O2SAT 94
[2023-07-31 16:29] LABS: Glucose Point of Care 154 mg/dl (65-105)
[2023-07-31 20:00] VITALS: PULSE 71; RESP 16; O2SAT 94
[2023-07-31] MEDS: ATORVASTATIN 40 MG TABLET 80 MG PO (21:20)
[2023-07-31] MEDS: GABAPENTIN 100 MG CAPSULE PO (21:20)
[2023-07-31 21:24] LABS: Glucose Point of Care 133 mg/dl (65-105)
[2023-08-01] VITALS: BP 121/46; PULSE 74; RESP 20; TEMP 35.9; O2SAT 93
[2023-08-01] MEDS: methocarbamoL 500 MG TABLET PO ×3 (00:17→13:46)
[2023-08-01] MEDS: HYDROcodone/acetaminophen (*CRX) 5-325 MG TABLET 1 TAB PO ×3 (02:04→13:45)
--- NOTE | 2023-08-01 02:04 | PC.NURSE ---
Up to BSC with assist of one, kristi well; noted more lethargic and states yes, when asked if she feels more confused. Pox:95%. P. 72; frowning, no drooping noted. Accuchek: 107. Offered Glucerna and refused. States her back and stomach are hurting. See MAR. Repositioned in bed with assist of one. Kristi. well.
[2023-08-01 02:05] LABS: Glucose Point of Care 107 mg/dl (65-105)
[2023-08-01] MEDS: LEVOTHYROXINE SODIUM 75 MCG TABLET PO (05:29)
[2023-08-01 07:40] VITALS: BP 123/39; PULSE 76; RESP 18; TEMP 35.9; O2SAT 94
[2023-08-01 07:52] LABS: Basophils Absolute Auto 0.05 K/mm3 (0.00-0.10); Basophils Percent Auto 0.5 % (0.0-1.0); Eosinophils Absolute Auto 0.23 K/mm3 (0.02-0.50); Eosinophils Percent Auto 2.5 % (1.0-6.0); Hematocrit 33.5 % (35.0-42.0); Hemoglobin 10.6 g/dL (11.7-13.8); Immature Granulocyte Absolute 0.04 K/mm3 (0.00-0.00); Immature Granulocyte Percent A 0.4 % (0.0-0.0); Lymphocytes Absolute Auto 1.44 K/mm3 (1.10-4.50); Lymphocytes Percent Auto 15.8 % (18.0-42.0); Mean Corpuscular HGB Conc 31.6 g/dL (32-36); Mean Corpuscular Volume 94.9 fL (78.0-102.0); Mean Platelet Volume 9.3 fl (9.2-11.8); Monocytes Percent Auto 6.6 % (2.0-11.0); Neutrophils Absolute Auto 6.76 K/mm3 (1.70-7.20); Neutrophils Percent Auto 74.2 % (50.0-70.0); Platelet Count Result 233 K/mm3 (150-420); Red Blood Count 3.53 M/mm3 (4.20-5.40); Red Cell Distribution Width 14.8 % (11.6-14.4); White Blood Count 9.1 K/mm3 (4.8-10.8)
[2023-08-01 08:06] LABS: Anion Gap 11 mmol/L (4-12); Blood Urea Nitrogen 32 mg/dL (7-18); Calcium 8.9 mg/dL (8.5-10.1); Carbon Dioxide 23 mmol/L (21-32); Chloride 104 mmol/L (98-108); Estimated CRCL calculation 23 ml/min; Estimated Glomerular Filt Rate 27; Glucose 123 mg/dL (70-99); Magnesium 1.8 mg/dL (1.8-2.4); Osmolality Calculated 293 mOsm/kg (285-295); Phosphorus 4.2 mg/dL (2.6-4.7); Potassium 4.9 mmol/L (3.5-5.1); Sodium 138 mmol/L (136-145)
[2023-08-01] MEDS: SPIRONOLACTONE 25 MG TABLET PO (09:12)
[2023-08-01] MEDS: APIXABAN 2.5 MG TABLET PO (09:12)
[2023-08-01] MEDS: levETIRAcetam 500 MG TABLET 1000 MG PO (09:12)
[2023-08-01] MEDS: VENLAFAXINE HCL XR 75 MG CAP.ER.24H PO (09:12)
[2023-08-01] MEDS: CHOLECALCIFEROL 1,000 UNITS TABLET 1000 UNITS PO (09:13)
[2023-08-01] MEDS: lamoTRIgine 100 MG TABLET PO (09:13)
[2023-08-01] MEDS: MIRABEGRON 25 MG ER TABLET 50 MG PO (09:13)
[2023-08-01] MEDS: MONTELUKAST SODIUM 10 MG TABLET PO (09:13)
[2023-08-01] MEDS: SACUBITRIL/VALSARTAN 24-26 MG TABLET 1 TAB PO (09:13)
--- NOTE | 2023-08-01 09:43 | PM.DS ---
DS: Admitting Diagnosis Discharge Date 08/01/2023 Admitting Diagnosis compression fracture, CKD, Chronic anticoagulation DS: Discharge Diagnosis Discharge Diagnosis (1) Compression fracture: Status: Acute (2) CKD (chronic kidney disease): Code(s): N18.9 - Chronic kidney disease, unspecified Status: Acute (3) Chronic anticoagulation: Code(s): Z79.01 - prison (current) use of anticoagulants Status: Acute Assessment and Plan: due to afib history (4) Osteoporosis: Code(s): M81.0 - Age-related osteoporosis without current pathological fracture Status: Acute DS: Summary Hospital Course Hospital Course: Patient fell at [facility] while putting away tablecloths and walker slipped away from her. Patient landed on her rear end and complained of severe mid to lower back pain. CT scan showed T12 compression fracture (not burst or chance) with about 20% loss of vertebrae height. This is presumed acute based on imaging (current and past) as well as site and quality of pain. PT/OT working with patient. Pain medication and muscle relaxers used. No distal neurologic dysfunction. Patient stable for discharge from acute care and transitioned to Swing Bed status. Status at Discharge Cognitive/behavioral status at discharge: awake, alert, oriented (mostly) and pleasant Functional status at discharge: uses cane/walker Overall status at discharge: patient is not back to baseline Time Spent with Patient Time attestation: Total time spent providing and/or coordinating discharge services: 40 mins Time spent: Greater than 30 minutes Exam Narrative: APPEARANCE: Uncomfortable appearing especially with raising and lower in the head of the bed and attempting to ambulate Head: atraumatic. EYES: EOMI, NOSE: Atraumatic NECK: Trachea midline RESPIRATORY: No increased rate of breathing, clear to auscultation CARDIOVASCULAR: RRR, no peripheral edema ABDOMINAL: Non-distended soft nontender MUSCULOSKELETAl: No obvious deformities NEURO: Awake Alert to baseline mental status, well known to this provider and this facility. Sensation light touch, motor function cerebellar function intact for 4 extremities. PSYCHIATRIC: Normal affect DS: Data Data Completed and Pending Labs on day of discharge: Labs from last 24 hours 08/01/23 08/01/23 07/31/23 07:46 01:59 21:18 WBC 9.1 RBC 3.53 L Hgb 10.6 L Hct 33.5 L MCV 94.9 MCH 30.0 MCHC 31.6 L RDW 14.8 H Plt Count 233 MPV 9.3 Immature Gran % (Auto) 0.4 H Neut % (Auto) 74.2 H Lymph % (Auto) 15.8 L Leon % (Auto) 6.6 Eos % (Auto) 2.5 Baso % (Auto) 0.5 Lymph # (Auto) 1.44 Leon # (Auto) 0.60 Eos # (Auto) 0.23 Baso # (Auto) 0.05 Abs Immat Gran (auto) 0.04 H Absolute Neuts (auto) 6.76 Absolute Nucleated RBC 0.00 Nucleated RBC % 0.0 Sodium 138 Potassium 4.9 Chloride 104 Carbon Dioxide 23 Anion Gap 11 BUN 32 H Creatinine 1.78 H Estim Creat Clear Calc 23 Estimated GFR 27 L Glucose 123 H POC Capillary Glucose 107 H 133 H Calculated Osmolality 293 Calcium 8.9 Phosphorus 4.2 Magnesium 1.8 Albumin 3.0 L 07/31/23 07/31/23 16:24 11:27 WBC RBC Hgb Hct MCV MCH MCHC RDW Plt Count MPV Immature Gran % (Auto) Neut % (Auto) Lymph % (Auto) Leon % (Auto) Eos % (Auto) Baso % (Auto) Lymph # (Auto) Leon # (Auto) Eos # (Auto) Baso # (Auto) Abs Immat Gran (auto) Absolute Neuts (auto) Absolute Nucleated RBC Nucleated RBC % Sodium Potassium Chloride Carbon Dioxide Anion Gap BUN Creatinine Estim Creat Clear Calc Estimated GFR Glucose POC Capillary Glucose 154 H 214 H Calculated Osmolality Calcium Phosphorus Magnesium Albumin Discharge Plan Discharge Attending physician on discharge: Jl Briones
[2023-08-01 11:59] LABS: Glucose Point of Care 171 mg/dl (65-105)
--- NOTE | 2023-08-01 14:10 | PM.IMPN ---
Subjective Date/time seen: 08/01/23 14:10 Objective Data Vital Signs Vital Signs: Vital Signs - 24 hr 07/31/23 16:00 07/31/23 20:00 08/01/23 00:00 Temperature 35.9 C L 35.9 C L Pulse Rate 71 71 74 Respiratory Rate 16 16 20 Blood Pressure 132/59 L 121/46 L Pulse Oximetry 94 94 93 Oxygen Delivery Room Air Room Air Room Air 08/01/23 07:40 Temperature 35.9 C L Pulse Rate 76 Respiratory Rate 18 Blood Pressure 123/39 L Pulse Oximetry 94 Oxygen Delivery Room Air Intake/Output Intake/Output: Intake & Output 07/29/23 07/30/23 07/31/23 08/01/23 23:59 23:59 23:59 23:59 Intake Total 750 1959 2069 800 Output Total 10 250 Balance 740 1959 2069 550 Meds/Results Medications: Active Medications Generic Name Dose Route Start Last Admin Trade Name Freq PRN Reason Stop Dose Admin Acetaminophen 650 mg 07/29/23 15:55 Acetaminophen 325 Mg Tablet PO Q4H PRN Pain Rated 5 or Less Hydrocodone Bitart/Acetaminophen 1 tab 07/29/23 15:55 08/01/23 13:45 Hydrocodone/Acetaminophen (*Crx) 5-325 Mg Tablet PO 1 tab Q4H PRN Administration Pain Rated 7-10 Apixaban 2.5 mg 07/29/23 21:00 08/01/23 09:12 Apixaban 2.5 Mg Tablet PO 2.5 mg Q12HR CATALINO Administration Atorvastatin Calcium 80 mg 07/29/23 21:00 07/31/23 21:20 Atorvastatin 40 Mg Tablet PO 80 mg HS CATALINO Administration Dextrose 12.5 gm 07/29/23 15:56 Dextrose 50% 25 Gm/50 Ml Syringe IV PUSH PRN PRN Hypoglycemia Protocol Gabapentin 100 mg 07/29/23 21:00 07/31/23 21:20 Gabapentin 100 Mg Capsule PO 100 mg HS CATALINO Administration Glucagon 1 mg 07/29/23 15:56 Glucagon For Inj 1 Mg Vial IM PRN PRN Hypoglycemia Protocol Glucose 15 gm 07/29/23 15:56 Glucose Oral Gel 15 Gm Of Glucse In 37.5 Gm Tube PO PRN PRN Hypoglycemia Protocol Dextrose 1,000 mls @ 100 mls/hr 07/29/23 15:56 Dextrose 5% 1,000 Ml IVPB PRN PRN Hypoglycemia Protocol Insulin Human Isoph/Insulin Regular 18 units 07/30/23 08:00 08/01/23 09:12 Insulin Isophane/Regular 70/30 1,000 Units/10 Ml Vial SUB-Q 18 units DAILY@0800 CATALINO Administration Insulin Human Isoph/Insulin Regular 12 units 07/29/23 17:00 07/31/23 16:59 Insulin Isophane/Regular 70/30 1,000 Units/10 Ml Vial SUB-Q 12 units DAILY@1700 CATALINO Administration Insulin Human Lispro 2 - 5 units 07/30/23 11:30 08/01/23 12:10 Insulin Human Lispro (*Bkc) 1,000 Units/10 Ml Vial SUB-Q Not Given DAILY@1130 [facility] Protocol Lamotrigine 100 mg 07/29/23 21:00 08/01/23 09:13 Lamotrigine 100 Mg Tablet PO 100 mg Q12HR CATALINO Administration Levetiracetam 1,000 mg 07/29/23 21:00 08/01/23 09:12 Levetiracetam 500 Mg Tablet PO 1,000 mg Q12HR CATALINO Administration Levothyroxine Sodium 75 mcg 07/30/23 06:30 08/01/23 05:29 Levothyroxine Sodium 75 Mcg Tablet PO 75 mcg DAILY@0630 CATALINO Administration Methocarbamol 500 mg 07/30/23 13:15 08/01/23 13:46 Methocarbamol 500 Mg Tablet PO 500 mg Q6HR CATALINO Administration Mirabegron 50 mg 07/30/23 09:00 08/01/23 09:13 Mirabegron 25 Mg Er Tablet PO 50 mg DAILY CATALINO Administration Montelukast Sodium 10 mg 07/30/23 09:00 08/01/23 09:13 Montelukast Sodium 10 Mg Tablet PO 10 mg DAILY CATALINO Administration Polyethylene Glycol 17 gm 07/29/23 13:39 07/31/23 08:20 Polyethylene Glycol 3350 17 Gm Powd.Pack PO 17 gm QAM PRN Administration Constipation Sacubitril/Valsartan 1 tab 07/29/23 21:00 08/01/23 09:13 Sacubitril/Valsartan 24-26 Mg Tablet PO 1 tab Q12HR CATALINO Administration Spironolactone 25 mg 07/30/23 09:00 08/01/23 09:12 Spironolactone 25 Mg Tablet PO 25 mg DAILY CATALINO Administration Venlafaxine HCl 75 mg 07/30/23 09:00 08/01/23 09:12 Venlafaxine Hcl Xr 75 Mg Cap.Er.24h PO 75 mg DAILY CATALINO Administration Vitamin D 1,000 units 07/30/23 09:00 08/01/23 09:13 Chol
[2023-08-15 21:32] LABS: Glucose Point of Care 98 mg/dl (65-105)
== END 2023-08-01 15:12 | disposition swing bed (61) ==
LOC: CHSED 11:01 → CHS2ND 11:15
PROVIDERS: Nurse Practitioner; Admitting Provider Internal Medicine; Emergency Provider Emergency Medicine; PCP Internal Medicine; Visit Provider Internal Medicine
DX: S22.080A Wedge compression fracture of T11-T12 vertebra, initial encounter for closed fracture (principal); W01.0XXA Fall on same level from slipping, tripping and stumbling without subsequent striking against object, initial encounter; R26.81 Unsteadiness on feet; I13.0 Hypertensive heart and chronic kidney disease with heart failure and stage 1 through stage 4 chronic kidney disease, or unspecified chronic kidney disease; I50.42 Chronic combined systolic (congestive) and diastolic (congestive) heart failure; E11.22 Type 2 diabetes mellitus with diabetic chronic kidney disease; N18.9 Chronic kidney disease, unspecified; M81.0 Age-related osteoporosis without current pathological fracture; I48.91 Unspecified atrial fibrillation; E78.5 Hyperlipidemia, unspecified; E03.9 Hypothyroidism, unspecified; E11.42 Type 2 diabetes mellitus with diabetic polyneuropathy; Z20.822 Contact with and (suspected) exposure to COVID-19; Z86.73 Personal history of transient ischemic attack (TIA), and cerebral infarction without residual deficits; Z86.711 Personal history of pulmonary embolism; Z79.01 Long term (current) use of anticoagulants; Z79.4 Long term (current) use of insulin; Z66 Do not resuscitate
CPT/HCPCS: 36415; 70450; 71045; 72128; 72131; 72170; 80053; 80069; 81001; 82948; 83605; 83735; 83880; 84484; 85025; 87637; 93005; 97161; 97165; 97530; 97535; 99285; A9270; G0378; J1815

== ENCOUNTER 2023-08-01 15:12 | Inpatient (IN) | payer MEDICARE, SELFPAY ==
--- NOTE | ~2023-08-01 | CT_ITS ---
EXAMINATION: CT brain wo con DATE: 08/05/2023 10:56 INDICATION: Altered mental status. Unresponsive episode. TECHNIQUE: Computed tomography (CT) of the head was performed without intravenous contrast. The mA wa s adjusted according to patient size. Iterative reconstruction technique was employed. The dose-lengt h product was 605.33 mGy-cm. COMPARISON: Head CT 07/29/2023 FINDINGS: There is an old infarct in the left temporal occipital region. There is a small old infarct in the right frontal parietal region. There are scattered areas of low attenuation in the cerebral w yassine matter. There is no intracranial hemorrhage, acute infarction, or abnormal intracranial mass les ion. The ventricles are normal in size. There is mucosal thickening in the paranasal sinuses. There i s thickening and sclerosis of the peck of the maxillary sinuses, which are small, consistent with ch ronic sinusitis. There are likely changes of ocular lens replacement surgeries. The mastoid air cells are normal. IMPRESSION: 1. Old infarcts involving the left temporal occipital region and right frontal parietal region. 2. Stable moderate nonspecific cerebral white matter disease, which likely represents chronic small v essel ischemic disease. 3. Chronic sinusitis. Reviewed, dictated and finalized at location A. IMPRESSION: 1. Old infarcts involving the left temporal occipital region and right frontal parietal region. 2. Stable moderate nonspecific cerebral white matter disease, which likely repr esents chronic small vessel ischemic disease. 3. Chronic sinusitis.
[2023-08-01 15:15] VITALS: BMI 30.7
--- NOTE | 2023-08-01 15:15 | PC.NURSE ---
8am full physical assessment charted on patients OBS chart. No changes in patient status since assessment.
--- NOTE | 2023-08-01 15:15 | ADMGEN ---
This patient, Nara Post, was admitted to 2nd Floor Room 208-2 as a skilled swing bed. Patient/family oriented to hospital policies and general routines including ID bracelet, bed and alarms, visiting hours, pain management, procedures, bathroom and other care routines, personal items, smoking policy, room service/diet, and visiting hours. Information on how to activate the Rapid Response Team has been discussed. Patient/Family are encouraged to report perceived risks to care and to ask questions if they do not understand what they are told or what they should do.
--- NOTE | 2023-08-01 16:12 | PM.IMHP ---
H&P: HPI History of Present Illness Date/Time: 08/02/23 12:12 Chief Complaint: T12 compression fracture, swing bed status Narrative: This is an 83-year-old female patient was admitted to acute care to [facility] for pain management related to fall with resultant T12 compression fracture. Patient has other contributing medical history including hypothyroidism, congestive heart failure, insulin-dependent diabetes, atrial fibrillation, hyperlipidemia, remote history of seizure disorder on antiepileptics and CKD bordering between stage III and stage IV. patient exhibiting significant pain and diminished capacity for self-care. For this reason physical therapy occupational therapy recommending skilled swing bed admission for therapy strengthening and pain control. Patient is well-known to this facility and this provider having spent significant time at this facility in the past several months. She has is exhibiting some mild nausea upset stomach and constipation today. Patient is also drowsy wanting to sleep more. She does have a history of frequent recurring urinary tract infections so we will check urinalysis. Yesterday she was discharged from acute care status and admitted to swing bed status within the last 24 hours. Review of Systems Review of Systems: All systems reviewed & are unremarkable except as noted in HPI and below PMFSH Past Medical History Medical History Ankle pain, right Chronic combined systolic and diastolic CHF (congestive heart failure) CVA (cerebral vascular accident) History of seizure Hyperlipidemia Hypertension Hypothyroidism Hypoxic Leukocytosis Peripheral neuropathy Pulmonary embolism Type 2 diabetes mellitus Vitamin D deficiency Surgical History Surgical History History of bilateral tubal ligation Status post cataract extraction of both eyes with insertion of intraocular lens Family History Family History Father Alcoholism Mother Breast cancer Ovarian cancer Social History Social History Social History: Patient lives at home with her of over 60 years. She stated that she briefly smoked for a couple of years when she was young. She denies any significant alcohol use. She ambulates with a Rollator. Code status: DNR/DNI (per patient request) Surrogate decision maker: Smoking status: Never smoker Second hand tobacco smoke exposure: No Alcohol intake: never Substance use: never Substance use type: does not use Do You Feel Safe in your Home?: Yes Lack of Transportation: No Lack of Food: Never True Current Housing: I Have Housing Concerned About Future Housing: No Difficulty Paying Gas/Electric Bills: No Difficulty Paying for Meds: No Currently Unemployed: No Education: High School Diploma/GED Difficulty w/ Childcare or Family Care: No Spiritual care concerns: No Meds Home Medications and Allergies Home Medications Medication Instructions Recorded Confirmed Type cholecalciferol (vitamin D3) 25 25 mcg PO DAILY #30 tabs 03/11/23 08/01/23 Rx mcg (1,000 unit) tablet gabapentin 100 mg capsule 100 mg PO HS #30 caps 03/11/23 08/01/23 Rx mirabegron 50 mg tablet,extended 50 mg PO DAILY #30 tabs 03/11/23 08/01/23 Rx release 24 hr (Myrbetriq) sacubitril 24 mg-valsartan 26 mg 1 tablet PO BID #60 tabs 03/11/23 08/01/23 Rx tablet (Entresto) spironolactone 25 mg tablet 25 mg PO DAILY #30 tabs 03/11/23 08/01/23 Rx venlafaxine 75 mg capsule,extended 75 mg PO DAILY #30 caps 03/11/23 08/01/23 Rx release 24 hr atorvastatin 80 mg tablet 80 mg PO HS 03/21/23 08/01/23 History levetiracetam 1,000 mg tablet 1,000 mg PO BID #60 tabs 03/23/23 08/01/23 Rx (Keppra) insulin aspar prot-insu
--- NOTE | 2023-08-01 16:30 | PC.NURSE ---
Blood sugar reported to previous OBS chart. Blood sugar 98
[2023-08-01 16:35] VITALS: BP 142/51; PULSE 83; RESP 16; TEMP 35.9; O2SAT 94
[2023-08-01] MEDS: methocarbamoL 500 MG TABLET PO ×2 (17:50→23:38)
[2023-08-01 20:00] VITALS: PULSE 83; RESP 16; O2SAT 94
[2023-08-01] MEDS: MONTELUKAST SODIUM 10 MG TABLET PO (20:02)
[2023-08-01] MEDS: ATORVASTATIN 40 MG TABLET 80 MG PO (20:02)
[2023-08-01] MEDS: lamoTRIgine 100 MG TABLET PO (20:02)
[2023-08-01] MEDS: SACUBITRIL/VALSARTAN 24-26 MG TABLET 1 TAB PO (20:02)
[2023-08-01] MEDS: levETIRAcetam 500 MG TABLET 1000 MG PO (20:02)
[2023-08-01] MEDS: HYDROcodone/acetaminophen (*CRX) 5-325 MG TABLET 1 TAB PO (20:02)
[2023-08-01] MEDS: GABAPENTIN 100 MG CAPSULE PO (20:02)
[2023-08-01] MEDS: APIXABAN 2.5 MG TABLET PO (20:02)
[2023-08-01 21:39] LABS: Glucose Point of Care 132 mg/dl (65-105)
[2023-08-01 23:56] VITALS: BP 128/50; PULSE 84; RESP 16; TEMP 36.2; O2SAT 95
[2023-08-02] MEDS: HYDROcodone/acetaminophen (*CRX) 5-325 MG TABLET 1 TAB PO ×3 (00:48→20:52)
[2023-08-02] MEDS: LEVOTHYROXINE SODIUM 75 MCG TABLET PO (06:02)
[2023-08-02] MEDS: methocarbamoL 500 MG TABLET PO ×2 (06:02→12:57)
[2023-08-02 07:50] VITALS: BP 130/50; PULSE 78; RESP 16; TEMP 35.8; O2SAT 93
[2023-08-02 08:06] LABS: Glucose Point of Care 139 mg/dl (65-105)
[2023-08-02] MEDS: CHOLECALCIFEROL 1,000 UNITS TABLET 1000 UNITS PO (09:23)
[2023-08-02] MEDS: MIRABEGRON 25 MG ER TABLET 50 MG PO (09:23)
[2023-08-02] MEDS: VENLAFAXINE HCL XR 75 MG CAP.ER.24H PO (09:23)
[2023-08-02] MEDS: levETIRAcetam 500 MG TABLET 1000 MG PO ×2 (09:23→20:52)
[2023-08-02] MEDS: SACUBITRIL/VALSARTAN 24-26 MG TABLET 1 TAB PO ×2 (09:23→20:52)
[2023-08-02] MEDS: lamoTRIgine 100 MG TABLET PO ×2 (09:23→20:52)
[2023-08-02] MEDS: SPIRONOLACTONE 25 MG TABLET PO (09:23)
[2023-08-02] MEDS: APIXABAN 2.5 MG TABLET PO ×2 (09:23→20:52)
[2023-08-02] MEDS: LIDOCAINE 5% PATCH 1 PATCH TOPICAL (09:24)
[2023-08-02 11:56] LABS: Glucose Point of Care 130 mg/dl (65-105)
[2023-08-02 16:40] VITALS: BP 118/40; PULSE 88; RESP 16; TEMP 35.8; O2SAT 94
[2023-08-02 17:05] LABS: Glucose Point of Care 143 mg/dl (65-105)
[2023-08-02 18:37] LABS: Appearance Urine Sl Cloudy (Clear); Bilirubin Urine Negative (Negative); Blood Urine 3+ (Negative); Color Urine Yellow (Yellow); Glucose Urine UA Negative (Negative); Ketones Urine Negative (Negative); Leukocyte Esterase Ur Trace LEU/UL (Negative); Nitrate Urine Negative (Negative); Protein Urine 1+ (Negative); Urobilinogen Urine 0.2 mg/dL (0.2-1.0); pH Urine 5.5 (5.0-8.0)
[2023-08-02 18:42] LABS: Add Urine Microscopic? YES; Bacteria Urine Trace /hpf; RBC Urine >75 /hpf (0-2); Squamous Epithelial Cell Urine Rare /hpf (Few)
[2023-08-02] MEDS: ATORVASTATIN 40 MG TABLET 80 MG PO (20:52)
[2023-08-02] MEDS: GABAPENTIN 100 MG CAPSULE PO (20:52)
[2023-08-02] MEDS: MONTELUKAST SODIUM 10 MG TABLET PO (20:52)
[2023-08-02 21:06] LABS: Glucose Point of Care 160 mg/dl (65-105)
[2023-08-02 23:47] VITALS: BP 115/38; PULSE 88; RESP 18; TEMP 36.1; O2SAT 95
[2023-08-03 05:17] LABS: Basophils Absolute Auto 0.05 K/mm3 (0.00-0.10); Basophils Percent Auto 0.7 % (0.0-1.0); Eosinophils Absolute Auto 0.37 K/mm3 (0.02-0.50); Eosinophils Percent Auto 4.8 % (1.0-6.0); Hematocrit 31.3 % (35.0-42.0); Hemoglobin 9.8 g/dL (11.7-13.8); Immature Granulocyte Absolute 0.03 K/mm3 (0.00-0.00); Immature Granulocyte Percent A 0.4 % (0.0-0.0); Lymphocytes Absolute Auto 1.65 K/mm3 (1.10-4.50); Lymphocytes Percent Auto 21.5 % (18.0-42.0); Mean Corpuscular HGB Conc 31.3 g/dL (32-36); Mean Corpuscular Hemoglobin 29.5 pg (27.0-31.0); Mean Corpuscular Volume 94.3 fL (78.0-102.0); Mean Platelet Volume 9.3 fl (9.2-11.8); Monocytes Absolute Auto 0.71 K/mm3 (0.10-0.90); Monocytes Percent Auto 9.3 % (2.0-11.0); Neutrophils Absolute Auto 4.86 K/mm3 (1.70-7.20); Neutrophils Percent Auto 63.3 % (50.0-70.0); Platelet Count Result 240 K/mm3 (150-420); Red Blood Count 3.32 M/mm3 (4.20-5.40); Red Cell Distribution Width 14.6 % (11.6-14.4); White Blood Count 7.7 K/mm3 (4.8-10.8)
[2023-08-03 05:33] LABS: Albumin Level 2.8 g/dL (3.4-5.0); Anion Gap 8 mmol/L (4-12); Blood Urea Nitrogen 34 mg/dL (7-18); Calcium 8.8 mg/dL (8.5-10.1); Carbon Dioxide 25 mmol/L (21-32); Chloride 104 mmol/L (98-108); Estimated CRCL calculation 24 ml/min; Estimated Glomerular Filt Rate 29; Glucose 66 mg/dL (70-99); Osmolality Calculated 289 mOsm/kg (285-295); Phosphorus 4.2 mg/dL (2.6-4.7); Potassium 4.5 mmol/L (3.5-5.1); Sodium 137 mmol/L (136-145)
[2023-08-03] MEDS: LEVOTHYROXINE SODIUM 75 MCG TABLET PO (07:02)
[2023-08-03 07:38] LABS: Glucose Point of Care 86 mg/dl (65-105)
[2023-08-03 07:53] VITALS: BP 133/53; PULSE 73; RESP 14; TEMP 36; O2SAT 96
[2023-08-03] MEDS: HYDROcodone/acetaminophen (*CRX) 5-325 MG TABLET 1 TAB PO ×2 (08:13→15:21)
[2023-08-03] MEDS: MIRABEGRON 25 MG ER TABLET 50 MG PO (09:00)
[2023-08-03] MEDS: levETIRAcetam 500 MG TABLET 1000 MG PO ×2 (09:01→20:58)
[2023-08-03] MEDS: lamoTRIgine 100 MG TABLET PO ×2 (09:01→20:58)
[2023-08-03] MEDS: SACUBITRIL/VALSARTAN 24-26 MG TABLET 1 TAB PO ×2 (09:01→20:58)
[2023-08-03] MEDS: SPIRONOLACTONE 25 MG TABLET PO (09:01)
[2023-08-03] MEDS: APIXABAN 2.5 MG TABLET PO ×2 (09:01→20:58)
[2023-08-03] MEDS: CHOLECALCIFEROL 1,000 UNITS TABLET 1000 UNITS PO (09:01)
[2023-08-03] MEDS: VENLAFAXINE HCL XR 75 MG CAP.ER.24H PO (09:01)
--- NOTE | 2023-08-03 09:24 | PC.NURSE ---
OT called out asking for a nurse to help. Patient in chair with eyes closed breathing but not responding to verbal stimuli. I rubbed patient stomach and she opened her eyes and said I don't feel well. Vital signs taken within normal limits. Patient only complains of back pain. Assisted to commode and then to bed without difficulty.
[2023-08-03 09:27] VITALS: BP 137/78; PULSE 87; RESP 16; O2SAT 98
[2023-08-03] MEDS: LIDOCAINE 5% PATCH 1 PATCH TOPICAL (09:30)
--- NOTE | 2023-08-03 11:15 | PM.EVENT ---
Event Note Event Note Event Note: Assuming care of this patient. Patient was visited during therapy session. She had difficulty standing from chair as she was having weakness and lower back pain. She required 2 people to stand from chair. She denies dizziness, shortness of breath, or chest pain. Labs are reviewed. Her blood sugar was 66 on her BMP this morning, point of care testing was 86. Will decrease her 70 30 nighttime insulin by 4 units.
[2023-08-03 12:02] LABS: Glucose Point of Care 188 mg/dl (65-105)
[2023-08-03 12:02] LABS: Glucose Point of Care 157 mg/dl (65-105)
[2023-08-03 16:00] VITALS: BP 120/44; PULSE 82; RESP 14; TEMP 35.8; O2SAT 91
[2023-08-03 16:48] LABS: Glucose Point of Care 206 mg/dl (65-105)
--- NOTE | 2023-08-03 19:00 | PC.NURSE ---
assumed care. report received from sarah queen
--- NOTE | 2023-08-03 20:26 | PC.NURSE ---
patient requested to use the bedside commode. with assist of walker and this RN, patient was able to get up, stand, pivot to the bedside commode and repeat steps to get back into the bed. call light returned to patient. dentures placed in denture cup w water.
[2023-08-03] MEDS: MONTELUKAST SODIUM 10 MG TABLET PO (20:58)
[2023-08-03] MEDS: ATORVASTATIN 40 MG TABLET 80 MG PO (20:58)
[2023-08-03] MEDS: GABAPENTIN 100 MG CAPSULE PO (20:58)
[2023-08-03 21:03] LABS: Glucose Point of Care 153 mg/dl (65-105)
[2023-08-03 21:08] VITALS: BP 112/37; PULSE 75; RESP 18; TEMP 36; O2SAT 93
[2023-08-04] VITALS: BP 114/42; PULSE 71; RESP 18; TEMP 35.8; O2SAT 93
[2023-08-04] MEDS: HYDROcodone/acetaminophen (*CRX) 5-325 MG TABLET 1 TAB PO ×3 (04:40→20:42)
--- NOTE | 2023-08-04 04:55 | PC.NURSE ---
assisted patient up to the bedside commode with aid of the walker. returned back to bed using walker. patient reported that she was having increased back pain. medicated per APR. call light in reach. personal items in reach
[2023-08-04] MEDS: LEVOTHYROXINE SODIUM 75 MCG TABLET PO (06:27)
--- NOTE | 2023-08-04 06:51 | PC.NURSE ---
report given to alex queen
[2023-08-04 07:41] LABS: Glucose Point of Care 116 mg/dl (65-105)
[2023-08-04 07:49] VITALS: BP 131/55; PULSE 71; RESP 18; TEMP 35.7; O2SAT 94
[2023-08-04] MEDS: polyethylene glycoL 3350 17 GM POWD.PACK PO (08:05)
[2023-08-04] MEDS: LIDOCAINE 5% PATCH 1 PATCH TOPICAL (08:06)
[2023-08-04] MEDS: SPIRONOLACTONE 25 MG TABLET PO (08:11)
[2023-08-04] MEDS: APIXABAN 2.5 MG TABLET PO ×2 (08:11→20:43)
[2023-08-04] MEDS: lamoTRIgine 100 MG TABLET PO ×2 (08:11→20:43)
[2023-08-04] MEDS: SACUBITRIL/VALSARTAN 24-26 MG TABLET 1 TAB PO ×2 (08:11→20:43)
[2023-08-04] MEDS: MIRABEGRON 25 MG ER TABLET 50 MG PO (08:12)
[2023-08-04] MEDS: levETIRAcetam 500 MG TABLET 1000 MG PO ×2 (08:12→20:42)
[2023-08-04] MEDS: VENLAFAXINE HCL XR 75 MG CAP.ER.24H PO (08:12)
[2023-08-04] MEDS: CHOLECALCIFEROL 1,000 UNITS TABLET 1000 UNITS PO (08:13)
[2023-08-04 11:43] LABS: Glucose Point of Care 191 mg/dl (65-105)
[2023-08-04 16:00] VITALS: BP 132/54; PULSE 74; RESP 16; TEMP 35.8; O2SAT 95
[2023-08-04 16:44] LABS: Glucose Point of Care 145 mg/dl (65-105)
[2023-08-04] MEDS: ATORVASTATIN 40 MG TABLET 80 MG PO (20:41)
[2023-08-04] MEDS: GABAPENTIN 100 MG CAPSULE PO (20:43)
[2023-08-04] MEDS: MONTELUKAST SODIUM 10 MG TABLET PO (20:43)
[2023-08-04 20:59] LABS: Glucose Point of Care 112 mg/dl (65-105)
[2023-08-05] VITALS: BP 144/48; PULSE 78; RESP 16; TEMP 36.6; O2SAT 96
[2023-08-05] MEDS: LEVOTHYROXINE SODIUM 75 MCG TABLET PO (06:37)
[2023-08-05 07:35] LABS: Glucose Point of Care 109 mg/dl (65-105)
[2023-08-05 07:54] VITALS: BP 127/50; PULSE 73; RESP 16; TEMP 35.8; O2SAT 95
[2023-08-05] MEDS: LIDOCAINE 5% PATCH 1 PATCH TOPICAL (08:10)
[2023-08-05] MEDS: MIRABEGRON 25 MG ER TABLET 50 MG PO (08:14)
[2023-08-05] MEDS: VENLAFAXINE HCL XR 75 MG CAP.ER.24H PO (08:14)
[2023-08-05] MEDS: ACETAMINOPHEN 500 MG TABLET 1000 MG PO ×2 (08:15→16:46)
[2023-08-05] MEDS: levETIRAcetam 500 MG TABLET 1000 MG PO ×2 (08:15→20:48)
[2023-08-05] MEDS: APIXABAN 2.5 MG TABLET PO ×2 (08:16→21:06)
[2023-08-05] MEDS: SACUBITRIL/VALSARTAN 24-26 MG TABLET 1 TAB PO ×2 (08:16→20:47)
[2023-08-05] MEDS: CHOLECALCIFEROL 1,000 UNITS TABLET 1000 UNITS PO (08:16)
[2023-08-05] MEDS: lamoTRIgine 100 MG TABLET PO ×2 (08:17→20:48)
[2023-08-05] MEDS: SPIRONOLACTONE 25 MG TABLET PO (08:17)
--- NOTE | 2023-08-05 09:00 | PC.NURSE ---
OT called nurse to the room because patient had become unresponsive. Jigmaker entered the room to see patient sitting in chair with head down and eyes closed. Jigmaker did light sternal rub and patient opened her eyes. Patient able to tell me who she is and that she is in a hospital. Patient unable to follow motor commands for neuro assessment at first, then patient slowly came around within 2 to 3 minutes. Patient c/o wanting to go back to bed. VS 135/49, 76, 96.7, 97%, 20. Patient able to pivot transfer with 2 assist back to bed. Patient immediately fell asleep. Bed rails up and pillows positioned for seizure precautions. SENIOR DIRECTOR FINANCE notified of change in patient condition. Will continue to monitor while awaiting new orders.
--- NOTE | 2023-08-05 09:10 | PC.NURSE ---
Delmi Carey notified of unresponsive episode while working with OT, patient RN at bedside, now more alert and able to stand with assist and to bed without incident at this time.
[2023-08-05 09:36] LABS: Glucose Point of Care 192 mg/dl (65-105)
--- NOTE | 2023-08-05 10:00 | PM.EVENT ---
Event Note Event Note Event Note: Nursing contacted me and reported that patient had an 'unresponsive episode'. She was working with OT and when she stood up she said I don't feel right and slumped back into her chair. Nurse reported to bedside and states the patient had her head hanging down and was drowsy but responded to light sternal rub. She was able to say she was at the hospital and she knew the year. When asked to provide hand forest management professor, close her eyes, or smile she did was unable to follow commands. VSS were stable 135/49, HR 76, 96.7 temp, 97% on room air. Blood glucose 192. Patient has a history of seizure and received her Keppra 1000 mg this morning and Lamictal 100 mg. She is drowsy and resting in bed. Patient did have a similar episode two days ago that I witnessed where she did not feel well when standing up and needed to sit back down immediately. She then required moderate assist of two staff to get her to bed. At that time she told me she did not think she was dizzy but just weak and her back hurt. Will obtain CT head w/o contrast stat. I discussed her case with Dr Price, neurologist at [facility] and she recommended medication changes to her Keppra increasing morning dose to 1500 mg and night dose [address] head and Keppra level tonight. Patient does not require transfer at this time but should she have a recurrent episode or becoming acutely altered then she will require transfer. I have contacted patient's bedside nurse, Vickie and plan has been discussed.
[2023-08-05] MEDS: levETIRAcetam 500 MG TABLET PO (10:53)
[2023-08-05 11:47] LABS: Glucose Point of Care 216 mg/dl (65-105)
[2023-08-05 16:00] VITALS: BP 141/55; PULSE 69; RESP 16; TEMP 36.1; O2SAT 94
[2023-08-05 16:44] LABS: Glucose Point of Care 122 mg/dl (65-105)
[2023-08-05] MEDS: ATORVASTATIN 40 MG TABLET 80 MG PO (20:47)
[2023-08-05] MEDS: GABAPENTIN 100 MG CAPSULE PO (20:49)
[2023-08-05] MEDS: MONTELUKAST SODIUM 10 MG TABLET PO (20:49)
[2023-08-05] MEDS: HYDROcodone/acetaminophen (*CRX) 5-325 MG TABLET 1 TAB PO (20:49)
[2023-08-05 21:02] LABS: Glucose Point of Care 131 mg/dl (65-105)
[2023-08-05 23:46] VITALS: BP 139/46; PULSE 72; RESP 16; TEMP 36.3; O2SAT 93
[2023-08-06] MEDS: ACETAMINOPHEN 500 MG TABLET 1000 MG PO (04:00)
[2023-08-06] MEDS: LEVOTHYROXINE SODIUM 75 MCG TABLET PO (06:03)
[2023-08-06 08:00] VITALS: BP 130/50; PULSE 75; RESP 16; TEMP 36.7; O2SAT 95
[2023-08-06 08:02] LABS: Glucose Point of Care 101 mg/dl (65-105)
[2023-08-06] MEDS: LIDOCAINE 5% PATCH 1 PATCH TOPICAL (08:50)
[2023-08-06] MEDS: HYDROcodone/acetaminophen (*CRX) 5-325 MG TABLET 1 TAB PO ×3 (08:52→21:03)
[2023-08-06] MEDS: levETIRAcetam 500 MG TABLET 1500 MG PO (08:52)
[2023-08-06] MEDS: SACUBITRIL/VALSARTAN 24-26 MG TABLET 1 TAB PO ×2 (08:53→21:02)
[2023-08-06] MEDS: SPIRONOLACTONE 25 MG TABLET PO (08:53)
[2023-08-06] MEDS: APIXABAN 2.5 MG TABLET PO ×2 (08:53→21:03)
[2023-08-06] MEDS: MIRABEGRON 25 MG ER TABLET 50 MG PO (08:53)
[2023-08-06] MEDS: lamoTRIgine 100 MG TABLET PO ×2 (08:53→21:03)
[2023-08-06] MEDS: CHOLECALCIFEROL 1,000 UNITS TABLET 1000 UNITS PO (08:53)
[2023-08-06] MEDS: VENLAFAXINE HCL XR 75 MG CAP.ER.24H PO (08:53)
[2023-08-06 11:50] LABS: Glucose Point of Care 175 mg/dl (65-105)
--- NOTE | 2023-08-06 13:19 | PM.EVENT ---
Event Note Event Note Event Note: Patient was see this morning sitting in her chair. We discussed the episode that happened yesterday. She does not recall the incident. She states that her seizures are normally absent in nature. Given her drowsiness yesterday and lack of memory of the event I suspect she did in fact have a seizure. Continue to monitor for recurrent seizure after medication adjustments. Keppra level is pending. Blood glucose has been stable.
--- NOTE | 2023-08-06 14:47 | PC.NURSE ---
Pt working with physical therapy now, ambulating in hallway.
[2023-08-06 16:35] VITALS: BP 117/54; PULSE 74; RESP 16; TEMP 35.8; O2SAT 94
[2023-08-06 16:56] LABS: Glucose Point of Care 146 mg/dl (65-105)
[2023-08-06] MEDS: polyethylene glycoL 3350 17 GM POWD.PACK PO (18:00)
--- NOTE | 2023-08-06 18:33 | PC.NURSE ---
Patients daughter here to visit. Took two night gowns home to wash for patient.
[2023-08-06] MEDS: levETIRAcetam 500 MG TABLET 1000 MG PO (21:02)
[2023-08-06] MEDS: ATORVASTATIN 40 MG TABLET 80 MG PO (21:02)
[2023-08-06] MEDS: MONTELUKAST SODIUM 10 MG TABLET PO (21:03)
[2023-08-06] MEDS: GABAPENTIN 100 MG CAPSULE PO (21:03)
[2023-08-06 21:14] LABS: Glucose Point of Care 148 mg/dl (65-105)
[2023-08-07] VITALS: BP 117/53; PULSE 73; RESP 15; TEMP 36.3; O2SAT 93
[2023-08-07] MEDS: LEVOTHYROXINE SODIUM 75 MCG TABLET PO (06:01)
[2023-08-07 08:00] VITALS: BP 124/74; PULSE 77; RESP 17; TEMP 36.1; O2SAT 97
[2023-08-07 08:14] LABS: Glucose Point of Care 113 mg/dl (65-105)
[2023-08-07] MEDS: levETIRAcetam 500 MG TABLET 1500 MG PO (09:09)
[2023-08-07] MEDS: LIDOCAINE 5% PATCH 1 PATCH TOPICAL (09:09)
[2023-08-07] MEDS: MIRABEGRON 25 MG ER TABLET 50 MG PO (09:09)
[2023-08-07] MEDS: CHOLECALCIFEROL 1,000 UNITS TABLET 1000 UNITS PO (09:09)
[2023-08-07] MEDS: VENLAFAXINE HCL XR 75 MG CAP.ER.24H PO (09:09)
[2023-08-07] MEDS: APIXABAN 2.5 MG TABLET PO ×2 (09:10→20:08)
[2023-08-07] MEDS: lamoTRIgine 100 MG TABLET PO ×2 (09:10→20:10)
[2023-08-07] MEDS: SACUBITRIL/VALSARTAN 24-26 MG TABLET 1 TAB PO ×2 (09:10→20:08)
[2023-08-07] MEDS: SPIRONOLACTONE 25 MG TABLET PO (09:10)
[2023-08-07] MEDS: HYDROcodone/acetaminophen (*CRX) 5-325 MG TABLET 1 TAB PO ×2 (09:16→20:09)
[2023-08-07 11:53] LABS: Glucose Point of Care 202 mg/dl (65-105)
[2023-08-07] MEDS: INSULIN HUMAN LISPRO (*BKC) 1,000 UNITS/10 ML VIAL SUB-Q (11:59)
[2023-08-07 16:00] VITALS: BP 117/64; PULSE 78; RESP 16; TEMP 36.6; O2SAT 97
[2023-08-07] MEDS: polyethylene glycoL 3350 17 GM POWD.PACK PO (16:49)
[2023-08-07 17:09] LABS: Glucose Point of Care 126 mg/dl (65-105)
[2023-08-07] MEDS: GABAPENTIN 100 MG CAPSULE PO (20:08)
[2023-08-07] MEDS: levETIRAcetam 500 MG TABLET 1000 MG PO (20:09)
[2023-08-07] MEDS: ATORVASTATIN 40 MG TABLET 80 MG PO (20:10)
[2023-08-07] MEDS: MONTELUKAST SODIUM 10 MG TABLET PO (20:10)
[2023-08-07 20:29] LABS: Glucose Point of Care 130 mg/dl (65-105)
[2023-08-08] VITALS: BP 124/49; PULSE 72; RESP 16; TEMP 36.8; O2SAT 96
[2023-08-08] MEDS: LEVOTHYROXINE SODIUM 75 MCG TABLET PO (06:23)
--- NOTE | 2023-08-08 06:39 | PC.NURSE ---
Patient slept well last night, and awakened only once to walk to the commode and back. She uses a wheeled walker, a gait belt, and an assist of one to ambulate. Patient had severe pain at about 2000, and received [place] 5-325mg to relieve a pain of 10/10. After approximately 50 minutes, patient reported that the pain had decreased to 6/10.
[2023-08-08 07:43] LABS: Glucose Point of Care 93 mg/dl (65-105)
[2023-08-08 08:00] VITALS: BP 124/54; PULSE 69; RESP 16; TEMP 35.7; O2SAT 96
[2023-08-08] MEDS: CHOLECALCIFEROL 1,000 UNITS TABLET 1000 UNITS PO (08:22)
[2023-08-08] MEDS: APIXABAN 2.5 MG TABLET PO ×2 (08:22→20:16)
[2023-08-08] MEDS: levETIRAcetam 500 MG TABLET 1500 MG PO (08:22)
[2023-08-08] MEDS: lamoTRIgine 100 MG TABLET PO ×2 (08:23→20:15)
[2023-08-08] MEDS: MIRABEGRON 25 MG ER TABLET 50 MG PO (08:23)
[2023-08-08] MEDS: VENLAFAXINE HCL XR 75 MG CAP.ER.24H PO (08:23)
[2023-08-08] MEDS: SPIRONOLACTONE 25 MG TABLET PO (08:23)
[2023-08-08] MEDS: LIDOCAINE 5% PATCH 1 PATCH TOPICAL (08:23)
[2023-08-08] MEDS: SACUBITRIL/VALSARTAN 24-26 MG TABLET 1 TAB PO ×2 (08:23→20:16)
--- NOTE | 2023-08-08 08:34 | PM.IMPN ---
Progress Note: A&P Assessment and Plan (1) Compression fracture: Status: Acute Assessment and Plan: T12 acute compression fracture PT/OT and pain control Goal to return to [facility] living where she resides with Vishnu Expect 2 weeks of therapy needed in Swing Status Care conference tomorrow (2) CKD (chronic kidney disease): Code(s): N18.9 - Chronic kidney disease, unspecified Status: Acute Assessment and Plan: creatinine 1.78, BUN 32, estimated GFR 27 estimated creatinine clearance 23 on 07/31 patient reports not wanting to drink as much to decrease how often she urinates because of how painful it is to mobilize to the bedside commode nursing staff encouraging adequate oral intake but noticing darkening of the urine and decrease in urine output ordered UA with culture reflex (3) Chronic anticoagulation: Code(s): Z79.01 - long term care pharmacist (current) use of anticoagulants Status: Acute Assessment and Plan: Eliquis 2.5 mg Q 12 due to age and decreased renal function (4) Unsteady gait: Code(s): R26.81 - Unsteadiness on feet Status: Acute Assessment and Plan: continue skilled swing bed therapy PT and OT (5) IDDM (insulin dependent diabetes mellitus): Status: Acute Assessment and Plan: well controlled on current insulin management plan of 70/30 at a decreased dose than what she was taking at home due to diminished appetite Subjective Date/time seen: 08/08/23 08:34 Interval history: Patient is feeling ok today although with to much movement she is having some pain . No SOB, Chest pain and or difficulties at this time. Exam Narrative: APPEARANCE: Uncomfortable appearing especially with raising and lower in the head of the bed and attempting to ambulate Head: atraumatic. EYES: EOMI, NOSE: Atraumatic NECK: Trachea midline RESPIRATORY: No increased rate of breathing, clear to auscultation CARDIOVASCULAR: RRR, no peripheral edema ABDOMINAL: Non-distended soft nontender, bowel sounds normal MUSCULOSKELETAl: No obvious deformities NEURO: Awake Alert to baseline mental status, well known to this provider and this facility. Sensation light touch, motor function cerebellar function intact for 4 extremities. PSYCHIATRIC: Normal affect , slightly more drowsy today Objective Data Vital Signs Vital Signs: Vital Signs - 24 hr 08/07/23 16:00 08/08/23 00:00 08/08/23 08:00 Temperature 98 F 98.2 F 96.3 F L Pulse Rate 78 72 69 Respiratory Rate 16 16 16 Blood Pressure 117/64 124/49 L 124/54 L Pulse Oximetry 97 96 96 Oxygen Delivery Room Air Room Air Room Air Intake/Output Intake/Output: Intake & Output 08/05/23 08/06/23 08/07/23 08/08/23 23:59 23:59 23:59 23:59 Intake Total 4884 818 2695 540 Output Total 1100 1100 675 300 Balance 365 -350 1025 240 Meds/Results Medications: Active Medications Generic Name Dose Route Start Last Admin Trade Name Freq PRN Reason Stop Dose Admin Acetaminophen 1,000 mg 08/01/23 16:24 08/06/23 04:00 Acetaminophen 500 Mg Tablet PO 1,000 mg TID PRN Administration Pain Rated 1-3 Hydrocodone Bitart/Acetaminophen 1 tab 08/01/23 16:24 08/07/23 20:09 Hydrocodone/Acetaminophen (*Crx) 5-325 Mg Tablet PO 1 tab Q4H PRN Administration Pain Rated 7-10 Apixaban 2.5 mg 08/01/23 21:00 08/08/23 08:22 Apixaban 2.5 Mg Tablet PO 2.5 mg Q12HR CATALINO Administration Atorvastatin Calcium 80 mg 08/01/23 21:00 08/07/23 20:10 Atorvastatin 40 Mg Tablet PO 80 mg HS CATALINO Administration Dextrose 12.5 gm 08/01/23 16:17 Dextrose 50% 25 Gm/50 Ml Syringe IV PUSH PRN PRN Hypoglycemia Protocol Gabapentin 100 mg 08/01/23 21:00 08/07/23 20:08 Gabapentin 100 Mg Capsule PO 100 mg HS CATALINO Administration Glucagon 1 mg 08/01/23 16:17 Glucagon For Inj 1 Mg Vial IM PRN PRN Hypoglycemia Protocol Glucose 15 gm 08/01/23
[2023-08-08 11:32] LABS: Glucose Point of Care 222 mg/dl (65-105)
[2023-08-08] MEDS: INSULIN HUMAN LISPRO (*BKC) 1,000 UNITS/10 ML VIAL SUB-Q (11:45)
[2023-08-08 12:13] LABS: Levetiracetam Keppra 62.5 mcg/mL (6.0-46.0)
[2023-08-08 16:00] VITALS: BP 136/51; PULSE 70; RESP 16; TEMP 36.1; O2SAT 96
--- NOTE | 2023-08-08 16:19 | PC.NURSE ---
Patient sitting in recliner watching TV. Call light and belongings within reach. No specific c/o offered. Amb to/from bathroom with stand by assist using gait belt and walker. Gait steady.
[2023-08-08 16:52] LABS: Glucose Point of Care 113 mg/dl (65-105)
--- NOTE | 2023-08-08 17:00 | PC.NURSE ---
Patient up in chair waiting for supper tray. Bedside glucoscan obtained. Insulin given per MD order. Patient smiling and joking with nurse. Call light and belongings within reach.
--- NOTE | 2023-08-08 18:03 | PC.NURSE ---
Patient fed self 50% of supper. Patient requested to go to bed after supper. Assisted to bed. Call light and belongings within reach.
--- NOTE | 2023-08-08 18:53 | PC.NURSE ---
Enid Otoole NP, notified that patient's Keppra level was 62.5. New orders received.
[2023-08-08] MEDS: HYDROcodone/acetaminophen (*CRX) 5-325 MG TABLET 1 TAB PO (19:18)
[2023-08-08] MEDS: ATORVASTATIN 40 MG TABLET 80 MG PO (20:15)
[2023-08-08] MEDS: GABAPENTIN 100 MG CAPSULE PO (20:16)
[2023-08-08] MEDS: MONTELUKAST SODIUM 10 MG TABLET PO (20:16)
[2023-08-08 20:33] LABS: Glucose Point of Care 183 mg/dl (65-105)
--- NOTE | 2023-08-08 20:35 | PC.NURSE ---
Keppra was not given to patient due to high keppra blood levels of 62.5 mcg/mL. Normal levels are 6.0 to 46.0 mcg/mL.Levels will be checked tomorrow to determine when it is safe to resume keppra.
[2023-08-09] VITALS: BP 140/57; PULSE 80; RESP 18; TEMP 36.5; O2SAT 94
[2023-08-09] MEDS: LEVOTHYROXINE SODIUM 75 MCG TABLET PO (06:31)
[2023-08-09] MEDS: ACETAMINOPHEN 500 MG TABLET 1000 MG PO (06:49)
[2023-08-09 07:44] LABS: Glucose Point of Care 118 mg/dl (65-105)
[2023-08-09 08:00] VITALS: BP 127/50; PULSE 78; RESP 16; TEMP 35.9; O2SAT 91
[2023-08-09] MEDS: APIXABAN 2.5 MG TABLET PO ×2 (08:10→20:40)
[2023-08-09] MEDS: VENLAFAXINE HCL XR 75 MG CAP.ER.24H PO (08:11)
[2023-08-09] MEDS: SACUBITRIL/VALSARTAN 24-26 MG TABLET 1 TAB PO ×2 (08:11→20:41)
[2023-08-09] MEDS: lamoTRIgine 100 MG TABLET PO ×2 (08:11→20:40)
[2023-08-09] MEDS: CHOLECALCIFEROL 1,000 UNITS TABLET 1000 UNITS PO (08:11)
[2023-08-09] MEDS: SPIRONOLACTONE 25 MG TABLET PO (08:11)
[2023-08-09] MEDS: LIDOCAINE 5% PATCH 1 PATCH TOPICAL (08:11)
[2023-08-09] MEDS: MIRABEGRON 25 MG ER TABLET 50 MG PO (08:11)
[2023-08-09] MEDS: levETIRAcetam 500 MG TABLET 1500 MG PO (08:11)
--- NOTE | 2023-08-09 10:15 | PM.EVENT ---
Event Note Event Note Event Note: spoke with pharmacist and we changed Keppra to 750 Q 12 hours we will continue to monitor.
[2023-08-09] MEDS: BISACODYL 5 MG TABLET EC PO (10:37)
[2023-08-09 11:46] LABS: Glucose Point of Care 193 mg/dl (65-105)
[2023-08-09 16:00] VITALS: BP 145/49; PULSE 75; RESP 18; TEMP 35.8; O2SAT 97
[2023-08-09 16:46] LABS: Glucose Point of Care 159 mg/dl (65-105)
[2023-08-09] MEDS: HYDROcodone/acetaminophen (*CRX) 5-325 MG TABLET 1 TAB PO ×2 (16:46→20:41)
[2023-08-09] MEDS: levETIRAcetam Tablet 250 MG, levETIRAcetam Tablet 500 MG 750 MG PO (20:39)
[2023-08-09] MEDS: GABAPENTIN 100 MG CAPSULE PO (20:40)
[2023-08-09] MEDS: ATORVASTATIN 40 MG TABLET 80 MG PO (20:40)
[2023-08-09] MEDS: MONTELUKAST SODIUM 10 MG TABLET PO (20:40)
[2023-08-09 20:57] LABS: Glucose Point of Care 143 mg/dl (65-105)
[2023-08-10] VITALS: BP 119/53; PULSE 73; RESP 16; TEMP 36.3; O2SAT 93
[2023-08-10] MEDS: HYDROcodone/acetaminophen (*CRX) 5-325 MG TABLET 1 TAB PO ×2 (03:47→17:07)
--- NOTE | 2023-08-10 04:10 | PC.NURSE ---
Patient was experiencing severe pain (7/10) after two back to back trips to the toilet. This nurse retrieved [place] 5-325 mg from the pyxis to administer to the patient. As soon as the medication, in the medication cup, was given to the patient, the patient began to cough and choke in an attempt to bring up some phlegm. In the uproar, the patient lost the pill out of the cup. The charge nurse and this nurse both looked under the bed, through all of the bed clothes, and under and around the patient, but the pill could not be found. Therefore, the pill was wasted in the pyxis and a replacement was taken out. Patient received the pain medication, and was told if she found the other pill to put it on the bedside table and notify her nurse.
[2023-08-10] MEDS: LEVOTHYROXINE SODIUM 75 MCG TABLET PO (06:31)
[2023-08-10 07:57] LABS: Hematocrit 37.4 % (35.0-42.0); Hemoglobin 11.7 g/dL (11.7-13.8); Mean Corpuscular HGB Conc 31.3 g/dL (32-36); Mean Corpuscular Hemoglobin 29.8 pg (27.0-31.0); Mean Corpuscular Volume 95.2 fL (78.0-102.0); Mean Platelet Volume 8.9 fl (9.2-11.8); Platelet Count Result 316 K/mm3 (150-420); Red Blood Count 3.93 M/mm3 (4.20-5.40); Red Cell Distribution Width 14.6 % (11.6-14.4); White Blood Count 8.5 K/mm3 (4.8-10.8)
[2023-08-10 08:00] VITALS: BP 107/41; PULSE 76; RESP 16; TEMP 35.9; O2SAT 95
[2023-08-10 08:00] LABS: Glucose Point of Care 91 mg/dl (65-105)
[2023-08-10 08:07] LABS: Anion Gap 10 mmol/L (4-12); Blood Urea Nitrogen 36 mg/dL (7-18); Carbon Dioxide 24 mmol/L (21-32); Chloride 103 mmol/L (98-108); Estimated CRCL calculation 23 ml/min; Estimated Glomerular Filt Rate 28; Glucose 88 mg/dL (70-99); Osmolality Calculated 291 mOsm/kg (285-295); Potassium 4.7 mmol/L (3.5-5.1); Sodium 137 mmol/L (136-145)
[2023-08-10] MEDS: MIRABEGRON 25 MG ER TABLET 50 MG PO (08:52)
[2023-08-10] MEDS: CHOLECALCIFEROL 1,000 UNITS TABLET 1000 UNITS PO (08:52)
[2023-08-10] MEDS: levETIRAcetam Tablet 250 MG, levETIRAcetam Tablet 500 MG 750 MG PO ×2 (08:52→21:12)
[2023-08-10] MEDS: APIXABAN 2.5 MG TABLET PO ×2 (08:53→21:13)
[2023-08-10] MEDS: LIDOCAINE 5% PATCH 1 PATCH TOPICAL (08:53)
[2023-08-10] MEDS: VENLAFAXINE HCL XR 75 MG CAP.ER.24H PO (08:53)
[2023-08-10] MEDS: lamoTRIgine 100 MG TABLET PO ×2 (08:53→21:13)
[2023-08-10] MEDS: SACUBITRIL/VALSARTAN 24-26 MG TABLET 1 TAB PO ×2 (08:53→21:13)
[2023-08-10] MEDS: SPIRONOLACTONE 25 MG TABLET PO (08:53)
[2023-08-10 12:10] LABS: Glucose Point of Care 155 mg/dl (65-105)
[2023-08-10 12:39] LABS: Levetiracetam Keppra 67.2 mcg/mL (6.0-46.0)
[2023-08-10 16:00] VITALS: BP 122/47; PULSE 70; RESP 18; TEMP 36.1; O2SAT 98
[2023-08-10 17:02] LABS: Glucose Point of Care 98 mg/dl (65-105)
[2023-08-10] MEDS: GABAPENTIN 100 MG CAPSULE PO (21:12)
[2023-08-10] MEDS: ATORVASTATIN 40 MG TABLET 80 MG PO (21:12)
[2023-08-10] MEDS: MONTELUKAST SODIUM 10 MG TABLET PO (21:13)
[2023-08-10 21:15] LABS: Glucose Point of Care 79 mg/dl (65-105)
[2023-08-11] VITALS: BP 105/47; PULSE 80; RESP 16; TEMP 36.6; O2SAT 97
[2023-08-11] MEDS: HYDROcodone/acetaminophen (*CRX) 5-325 MG TABLET 1 TAB PO ×2 (05:40→20:18)
[2023-08-11] MEDS: LEVOTHYROXINE SODIUM 75 MCG TABLET PO (05:40)
[2023-08-11 07:58] LABS: Glucose Point of Care 115 mg/dl (65-105)
[2023-08-11 08:00] VITALS: BP 123/47; PULSE 72; RESP 17; TEMP 35.8; O2SAT 96
[2023-08-11] MEDS: SACUBITRIL/VALSARTAN 24-26 MG TABLET 1 TAB PO ×2 (09:26→20:18)
[2023-08-11] MEDS: LIDOCAINE 5% PATCH 1 PATCH TOPICAL (09:26)
[2023-08-11] MEDS: levETIRAcetam Tablet 250 MG, levETIRAcetam Tablet 500 MG 750 MG PO ×2 (09:26→20:19)
[2023-08-11] MEDS: VENLAFAXINE HCL XR 75 MG CAP.ER.24H PO (09:27)
[2023-08-11] MEDS: SPIRONOLACTONE 25 MG TABLET PO (09:27)
[2023-08-11] MEDS: APIXABAN 2.5 MG TABLET PO ×2 (09:27→20:18)
[2023-08-11] MEDS: CHOLECALCIFEROL 1,000 UNITS TABLET 1000 UNITS PO (09:27)
[2023-08-11] MEDS: lamoTRIgine 100 MG TABLET PO ×2 (09:27→20:18)
[2023-08-11] MEDS: MIRABEGRON 25 MG ER TABLET 50 MG PO (09:27)
[2023-08-11 12:05] LABS: Glucose Point of Care 239 mg/dl (65-105)
[2023-08-11] MEDS: INSULIN HUMAN LISPRO (*BKC) 1,000 UNITS/10 ML VIAL SUB-Q (12:23)
[2023-08-11 16:00] VITALS: BP 132/56; PULSE 72; RESP 17; TEMP 35.9; O2SAT 96
[2023-08-11 16:53] LABS: Glucose Point of Care 140 mg/dl (65-105)
[2023-08-11 20:13] LABS: Glucose Point of Care 191 mg/dl (65-105)
[2023-08-11] MEDS: polyethylene glycoL 3350 17 GM POWD.PACK PO (20:18)
[2023-08-11] MEDS: MONTELUKAST SODIUM 10 MG TABLET PO (20:19)
[2023-08-11] MEDS: ATORVASTATIN 40 MG TABLET 80 MG PO (20:19)
[2023-08-11] MEDS: GABAPENTIN 100 MG CAPSULE PO (20:19)
[2023-08-12] VITALS: BP 118/49; PULSE 76; RESP 16; TEMP 36.8; O2SAT 97
[2023-08-12 05:18] LABS: Hematocrit 31.4 % (35.0-42.0); Hemoglobin 10.1 g/dL (11.7-13.8); Mean Corpuscular HGB Conc 32.2 g/dL (32-36); Mean Corpuscular Volume 93.2 fL (78.0-102.0); Mean Platelet Volume 8.7 fl (9.2-11.8); Platelet Count Result 281 K/mm3 (150-420); Red Blood Count 3.37 M/mm3 (4.20-5.40); Red Cell Distribution Width 14.5 % (11.6-14.4); White Blood Count 5.9 K/mm3 (4.8-10.8)
[2023-08-12 05:28] LABS: Anion Gap 8 mmol/L (4-12); Blood Urea Nitrogen 34 mg/dL (7-18); Carbon Dioxide 26 mmol/L (21-32); Chloride 107 mmol/L (98-108); Estimated CRCL calculation 26 ml/min; Estimated Glomerular Filt Rate 32; Glucose 65 mg/dL (70-99); Osmolality Calculated 297 mOsm/kg (285-295); Potassium 4.6 mmol/L (3.5-5.1); Sodium 141 mmol/L (136-145)
[2023-08-12] MEDS: LEVOTHYROXINE SODIUM 75 MCG TABLET PO (05:30)
[2023-08-12 05:38] LABS: Calcium 8.5 mg/dL (8.5-10.1)
[2023-08-12 08:00] VITALS: BP 114/41; PULSE 75; RESP 17; TEMP 35.8; O2SAT 97
[2023-08-12] MEDS: levETIRAcetam Tablet 250 MG, levETIRAcetam Tablet 500 MG 750 MG PO (09:31)
[2023-08-12] MEDS: lamoTRIgine 100 MG TABLET PO (09:31)
[2023-08-12] MEDS: VENLAFAXINE HCL XR 75 MG CAP.ER.24H PO (09:31)
[2023-08-12] MEDS: SACUBITRIL/VALSARTAN 24-26 MG TABLET 1 TAB PO (09:31)
[2023-08-12] MEDS: MIRABEGRON 25 MG ER TABLET 50 MG PO (09:31)
[2023-08-12] MEDS: CHOLECALCIFEROL 1,000 UNITS TABLET 1000 UNITS PO (09:31)
[2023-08-12] MEDS: APIXABAN 2.5 MG TABLET PO (09:31)
[2023-08-12] MEDS: SPIRONOLACTONE 25 MG TABLET PO (09:31)
[2023-08-12] MEDS: LIDOCAINE 5% PATCH 1 PATCH TOPICAL (09:38)
--- NOTE | 2023-08-12 11:20 | PM.DS ---
DS: Admitting Diagnosis Discharge Date 08/12/2023 Admitting Diagnosis T12 compression fracture, swing bed status DS: Discharge Diagnosis Discharge Diagnosis (1) Compression fracture: Status: Acute Assessment and Plan: T12 acute compression fracture PT/OT and pain control Goal to return to [facility] where she resides with Vishnu Expect 2 weeks of therapy needed in Swing Status Care conference tomorrow (2) CKD (chronic kidney disease): Code(s): N18.9 - Chronic kidney disease, unspecified Status: Acute Assessment and Plan: creatinine 1.78, BUN 32, estimated GFR 27 estimated creatinine clearance 23 on 07/31 patient reports not wanting to drink as much to decrease how often she urinates because of how painful it is to mobilize to the bedside commode nursing staff encouraging adequate oral intake but noticing darkening of the urine and decrease in urine output ordered UA with culture reflex (3) Chronic anticoagulation: Code(s): Z79.01 - group home (current) use of anticoagulants Status: Acute Assessment and Plan: Eliquis 2.5 mg Q 12 due to age and decreased renal function (4) Unsteady gait: Code(s): R26.81 - Unsteadiness on feet Status: Acute Assessment and Plan: continue skilled swing bed therapy PT and OT (5) IDDM (insulin dependent diabetes mellitus): Status: Acute Assessment and Plan: well controlled on current insulin management plan of 70/30 at a decreased dose than what she was taking at home due to diminished appetite (6) Back pain: Code(s): M54.9 - Dorsalgia, unspecified Status: Acute Plan Weakness DS: Summary Hospital Course Reason for hospitalization: T12 compression fracture, swing bed status Hospital Course: This is a 83 year old that has been a swing bed and she is being discharged back to assistive living. According the physical therapy pateint has showed improved endurance and she is stronger with her independence and she is able to return home to assistiant living with recommendation of home health PT/OT there. Patient vitals has remained stable and she has been eating drinking without difficulties. Patient labs has remained stable and she is working well with her therapy. Time Spent with Patient Time attestation: Total time spent providing and/or coordinating discharge services: Exam Narrative: APPEARANCE: Uncomfortable appearing especially with raising and lower in the head of the bed and attempting to ambulate Head: atraumatic. EYES: EOMI, NOSE: Atraumatic NECK: Trachea midline RESPIRATORY: No increased rate of breathing, clear to auscultation CARDIOVASCULAR: RRR, no peripheral edema ABDOMINAL: Non-distended soft nontender, bowel sounds normal MUSCULOSKELETAl: No obvious deformities NEURO: Awake Alert to baseline mental status, well known to this provider and this facility. Sensation light touch, motor function cerebellar function intact for 4 extremities. PSYCHIATRIC: Normal affect , slightly more drowsy today DS: Data Data Completed and Pending Labs on day of discharge: Labs from last 24 hours 08/12/23 08/11/23 08/11/23 05:06 20:11 16:51 WBC 5.9 RBC 3.37 L Hgb 10.1 L Hct 31.4 L MCV 93.2 MCH 30.0 MCHC 32.2 RDW 14.5 H Plt Count 281 MPV 8.7 L Sodium 141 Potassium 4.6 Chloride 107 Carbon Dioxide 26 Anion Gap 8 BUN 34 H Creatinine 1.56 H Estim Creat Clear Calc 26 Estimated GFR 32 L Glucose 65 L POC Capillary Glucose 191 H 140 H Calculated Osmolality 297 H Calcium 8.5 08/11/23 12:00 WBC RBC Hgb Hct MCV MCH MCHC RDW Plt Count MPV Sodium Potassium Chloride Carbon Dioxide Anion Gap BUN Creatinine Estim Creat Clear Calc Estimated GFR Glucose POC Capillary Glucose 239 H Calculated Osmolality Calcium Discharge Plan Discharge Attendi
[2023-08-12 11:52] LABS: Glucose Point of Care 187 mg/dl (65-105)
[2023-08-12] MEDS: HYDROcodone/acetaminophen (*CRX) 5-325 MG TABLET 1 TAB PO (15:06)
--- NOTE | 2023-08-12 15:29 | PC.NURSE ---
Discharge instructions reviewed with patient and daughter. All questions answered. Pt transported via wheelchair and assisted into private vehicle.
== END 2023-08-12 15:29 | DRG 560 ==
PROVIDERS: Nurse Practitioner; Nurse Practitioner Family; Admitting Provider Internal Medicine; PCP Internal Medicine; Visit Provider Nurse Practitioner Acute Care
DX: S22.089D Unspecified fracture of T11-T12 vertebra, subsequent encounter for fracture with routine healing (principal); I13.0 Hypertensive heart and chronic kidney disease with heart failure and stage 1 through stage 4 chronic kidney disease, or unspecified chronic kidney disease; I50.42 Chronic combined systolic (congestive) and diastolic (congestive) heart failure; I48.20 Chronic atrial fibrillation, unspecified; N18.30 Chronic kidney disease, stage 3 unspecified; E11.22 Type 2 diabetes mellitus with diabetic chronic kidney disease; E11.42 Type 2 diabetes mellitus with diabetic polyneuropathy; E03.9 Hypothyroidism, unspecified; E55.9 Vitamin D deficiency, unspecified; E78.5 Hyperlipidemia, unspecified; G40.909 Epilepsy, unspecified, not intractable, without status epilepticus; Z79.4 Long term (current) use of insulin; Z86.73 Personal history of transient ischemic attack (TIA), and cerebral infarction without residual deficits; Z86.711 Personal history of pulmonary embolism; Z79.01 Long term (current) use of anticoagulants
CPT/HCPCS: 36415; 70450; 80048; 80069; 80177; 81001; 82948; 83735; 85025; 85027; 87086; 97110; 97161; 97166; 97530; 97535; A9270; J1815

== ENCOUNTER 2023-08-14 13:28 | Emergency (ER) | payer MEDICARE, SELFPAY ==
[2023-08-14] VITALS (20 sets, daily range): BP systolic 126–142; BP diastolic 65–72; PULSE 72–84; RESP 13–24; TEMP 36.1; O2SAT 92–100
--- NOTE | ~2023-08-14 | CT_ITS ---
EXAMINATION: CT abdomen pelvis wo con DATE: 08/14/2023 14:10 INDICATION: Onset today, abdominal pain TECHNIQUE: Computed tomography (CT) of the abdomen and pelvis was performed without intravenous contr ast. Automated exposure control and iterative reconstruction technique were employed. The dose-length product was 1115.03 mGy-cm. COMPARISON: CT cap 03/21/2023. FINDINGS: Lower thorax: Minimal left basilar atelectasis. Prominent pericardial fat pad. Coronary artery, aorti c, and mitral calcifications. Liver: Normal. Biliary/Gallbladder: Mild gallbladder distention. No inflammatory changes. No stones. No bile duct di lation. Pancreas: No mass or duct dilation. Spleen: Normal. Adrenals:No mass. Kidneys: No suspicious mass, obstructing stone, or hydronephrosis. The previously described 3 mm left renal calcification is not identified, nor are any distal collecting system or urinary bladder calci fications detected. GI tract: No small or large bowel dilation. Normal appendix. Diverticulosis without diverticulitis. Mesentery/Peritoneum: No ascites, mass, or free air. Retroperitoneum: No mass. Atherosclerotic abdominal aortic and/or arterial calcifications. Pelvis: Normal urinary bladder. Absent uterus. Normal bilateral ovaries. Soft Tissues: Soft tissues and body wall unremarkable. Bones: Mild burst fracture at T12 with minimal 2 mm retropulsion. Stable grade 1 anterolisthesis at L3-4. IMPRESSION: Gallbladder hydrops, may be secondary to fasting or obstruction. Correlate with biliary labs. No gall stones or gallbladder inflammatory change present. Mild burst fracture at T12 with minimal 2 mm retropulsion, new since the prior examination of 03/21/19 24. No significant paraspinal hematoma. Correlate with pain/tenderness and history of recent trauma. Reviewed, dictated and finalized at location K. IMPRESSION: Gallbladder hydrops, may be secondary to fasting or obstruction. Correlate with biliary labs. No gallstones or gallbladder inflammatory change present. Mild burst fracture at T12 with minimal 2 mm retropulsion, new since the prior examination of 03/21/2023. No significant paraspinal hematoma. Correlate with pa in/tenderness and history of recent trauma.
--- NOTE | ~2023-08-14 | XR_ITS ---
EXAMINATION: XR chest 1V portable Exam Date/Time: 08/14/2023 13:50 CDT HISTORY: sepsis/ams Comparison: 07/29/2023; CT abdomen pelvis 08/14/2023. RESULT: Lines, tubes, and devices: None. Lungs and pleura: Low volumes with crowding. Subsegmental left basilar airspace opacity. Mild left c ostophrenic angle blunting. Comparison with the concurrent CT abdomen pelvis reveals a prominent left pericardial fat pad, minimal left basilar atelectasis, and no pleural effusion. Cardiomediastinal silhouette: Stable. Other: No acute osseous or upper abdominal finding. Old proximal right humeral fracture. IMPRESSION: No acute cardiopulmonary process. Reviewed, dictated and finalized at location K.
--- NOTE | ~2023-08-14 | CT_ITS ---
EXAMINATION: CT brain wo con DATE: 08/14/2023 14:10 INDICATION: Onset today, AMS . TECHNIQUE: Computed tomography (CT) of the head was performed without intravenous contrast. The mA wa s adjusted according to patient size. Iterative reconstruction technique was employed. The dose-lengt h product was 605.33 mGy-cm. COMPARISON: 08/05/2023. FINDINGS: No acute intracranial hemorrhage or extra-axial fluid collection. No hydrocephalus, mass, or herniation. Subtle hypodensity in the left thalamus, new since the comparison. No acute large vessel ischemic inf arct. Unremarkable dural venous sinus attenuation. No acute osseous abnormality. Aerated secretions in the right sphenoid sinus, ethmoid mucosal thickening, complete opacification of the right maxillary sinus, near complete opacification of the left maxillary sinus, maxillary sclero sis, the remaining aerated spaces are clear. Moderate atrophy and chronic white matter change. Atherosclerotic intracranial calcification. Bilater al lens replacements. Old right basal ganglia lacunar infarcts. Left occipital encephalomalacia. Smal l focus of right frontal parietal encephalomalacia. IMPRESSION: Subtle hypodensity in the left thalamus, may represent acute infarct. Consider MRI of brain for furth er evaluation. Acute on chronic sinusitis. Results reported telephonically to Dr. Cordon by Dr. Loza at 2:25 PM on 08/14/2023. Reviewed, dictated and finalized at location K. IMPRESSION: Subtle hypodensity in the left thalamus, may represent acute infarct. Consider MRI of brain for further evaluation. Acute on chronic sinusitis. Results reported telephonically to Dr. Cordon by Dr. Loza at 2:25 PM on 08/13.
--- NOTE | 2023-08-14 13:38 | ED.ABDPAIN ---
HPI - Abdominal Pain General Chief Complaint: Urogenital-Female Stated Complaint: abdominal pain Source: patient and family Mode of arrival: ambulatory Limitations: no limitations History of Present Illness HPI narrative: Patient is an 83-year-old female with altered mental status and abdominal pain for the past few days. She was in the hospital for her thoracic fracture last week. She is not talking much at this time and not answering questions. Her eyes are closed on examination. She winces to pain however. she is on Eliquis for AFib. Unknown last known well for CVA. MD elicited complaint: abdominal pain Pertinent past history: other ( Diabetes type 2 with insulin using, hyperlipidemia, chronic pain) Onset (ago): day(s) (3) Pain Consistency: constant Location: diffuse, RLQ and LLQ Severity: moderate Pain scale (0-10): 6 Quality: sharp Radiation: none Migration to: no migration Exacerbating factors: nothing Relieving factors: nothing Context: confirms other ( recent hospitalization last week for thoracic fracture) Associated symptoms: denies other symptoms Related Data Patient : No Home Medications Medication Instructions Recorded Confirmed atorvastatin 80 mg tablet 80 mg PO HS 03/21/23 08/14/23 insulin aspar prot-insulin aspart See Rx Instructions .Route .COMPLEX 07/15/23 08/14/23 100 unit/mL (70-30) subcutaneous pen (Novolog Mix 70-30FlexPen U-100) apixaban 2.5 mg tablet (Eliquis) 2.5 mg PO BID 07/29/23 08/14/23 polyethylene glycol 3350 17 gram 17 g PO QAM PRN Constipation 07/29/23 08/14/23 oral powder packet Allergies Allergy/AdvReac Type Severity Reaction Status Date / Time naproxen Allergy Unknown Verified 08/14/23 15:38 Review of Systems Review of Systems: All systems reviewed & are unremarkable except as noted in HPI and below Constitutional: Constitutional: Reports no additional constitutional complaints Eyes: Eyes: Reports no additional eye complaints ENT: Reports system reviewed and no additional complaints, except as documented Cardiovascular: Cardiovascular: Reports no additional cardiovascular complaints Gastrointestinal: Gastrointestinal: Reports no additional gastrointestinal complaints Genitourinary: Genitourinary: Reports no additional female genitourinary complaints Musculoskeletal: Musculoskeletal: Reports no additional musculoskeletal complaints Integumentary/Breasts: Skin/Breast: Reports system reviewed and no additional complaints, except as docu Neurologic: Reports system reviewed and no additional complaints, except as documented Psychiatric: Psychiatric: Reports no additional psychiatric complaints Endocrine: Endocrine: Reports no additional endocrine complaints Hematologic/Lymphatic: Hematologic/Lymphatic: Reports no additional hematologic/lymphatic complaints Allergic/Immunologic: Allergic/Immunologic: Reports no additional allergic/immunologic complaints PMFSH Past Medical History Medical History Ankle pain, right Chronic combined systolic and diastolic CHF (congestive heart failure) CVA (cerebral vascular accident) History of seizure Hyperlipidemia Hypertension Hypothyroidism Hypoxic Leukocytosis Peripheral neuropathy Pulmonary embolism Type 2 diabetes mellitus Vitamin D deficiency Surgical History Surgical History History of bilateral tubal ligation Status post cataract extraction of both eyes with insertion of intraocular lens Family History Family History Father Alcoholism Mother Breast cancer Ovarian cancer Social History Social History Social History: Patient lives at home with her of over 60 years. She stated that she briefly smoked for a couple of years when she was young. She denies any significa
--- NOTE | 2023-08-14 13:43 | ECG_ITS ---
Test Date: 2023-08-14 14:19:02 Measurements Intervals Calvin Rate: 76 P: 46 [place]: 197 QRS: -19 QRSD: 157 T: 122 QT: 404 QTc: 456 Interpretive Statements SINUS RHYTHM LEFT BUNDLE BRANCH BLOCK BASELINE ARTIFACT- I, II, AVR, AVL ABNORMAL ECG Compared to ECG 07/29/2023 09:18:36 Ventricular premature complex(es) no longer present Electronically Signed On 08-14-2023 20:48:51 CDT by Nelson Luna D.O.
--- NOTE | 2023-08-14 14:00 | PC.NURSE ---
pt to ct per stretcher.
[2023-08-14 14:46] LABS: Basophils Absolute Auto 0.07 K/mm3 (0.00-0.10); Eosinophils Absolute Auto 0.36 K/mm3 (0.02-0.50); Eosinophils Percent Auto 5.2 % (1.0-6.0); Hematocrit 35.3 % (35.0-42.0); Hemoglobin 11.3 g/dL (11.7-13.8); Immature Granulocyte Absolute 0.04 K/mm3 (0.00-0.00); Immature Granulocyte Percent A 0.6 % (0.0-0.0); Lymphocytes Absolute Auto 1.83 K/mm3 (1.10-4.50); Lymphocytes Percent Auto 26.5 % (18.0-42.0); Mean Corpuscular Hemoglobin 29.7 pg (27.0-31.0); Mean Corpuscular Volume 92.9 fL (78.0-102.0); Monocytes Absolute Auto 0.51 K/mm3 (0.10-0.90); Monocytes Percent Auto 7.4 % (2.0-11.0); Neutrophils Absolute Auto 4.09 K/mm3 (1.70-7.20); Neutrophils Percent Auto 59.3 % (50.0-70.0); Platelet Count Result 324 K/mm3 (150-420); Red Cell Distribution Width 14.6 % (11.6-14.4); White Blood Count 6.9 K/mm3 (4.8-10.8)
[2023-08-14 15:02] LABS: Alanine Aminotransferase 24 U/L (14-59); Albumin Level 3.4 g/dL (3.4-5.0); Alkaline Phosphatase 155 U/L (46-116); Anion Gap 7 mmol/L (4-12); Aspartate Amino Transferase 21 U/L (15-37); Bilirubin,Total 0.4 mg/dL (0.00-1.00); Blood Urea Nitrogen 24 mg/dL (7-18); Calcium 9.2 mg/dL (8.5-10.1); Carbon Dioxide 27 mmol/L (21-32); Chloride 103 mmol/L (98-108); Estimated Glomerular Filt Rate 32; Glucose 139 mg/dL (70-99); Osmolality Calculated 290 mOsm/kg (285-295); Potassium 5.1 mmol/L (3.5-5.1); Sodium 137 mmol/L (136-145); Total Protein 7.3 g/dL (6.4-8.2); Troponin I 10.5 ng/L (0.00-60.4)
--- NOTE | 2023-08-14 15:02 | PC.NURSE ---
report to bret fitch
[2023-08-14 15:05] LABS: Lactic Acid Reflex 0.8 mmol/L (0.4-2.0)
[2023-08-14 15:08] LABS: Estimated CRCL calculation 20 ml/min
[2023-08-14 15:18] LABS: Bilirubin Urine Negative (Negative); Blood Urine 3+ (Negative); Color Urine Yellow (Yellow); Glucose Urine UA Trace (Negative); Ketones Urine Negative (Negative); Leukocyte Esterase Ur Negative LEU/UL (Negative); Nitrate Urine Negative (Negative); Protein Urine Trace (Negative); Urobilinogen Urine 0.2 mg/dL (0.2-1.0)
[2023-08-14 15:23] LABS: Add Urine Microscopic? YES; Appearance Urine Cloudy (Clear); Bacteria Urine 1+ /hpf; RBC Urine >100 /hpf (0-2)
[2023-08-14] MEDS: MORPHINE SULFATE (*CRX) 2 MG/ML INJ IV PUSH (18:21)
--- NOTE | 2023-08-21 14:22 | PC.NURSE ---
final blood cultures x2 reviewed. no growth after 5 days. no change in plan of care.
== END 2023-08-14 20:14 | disposition short-term general hospital (02) ==
PROVIDERS: Emergency Provider Emergency Medicine
DX: I63.9 Cerebral infarction, unspecified (principal); K87 Disorders of gallbladder, biliary tract and pancreas in diseases classified elsewhere; S22.081D Stable burst fracture of T11-T12 vertebra, subsequent encounter for fracture with routine healing; I13.0 Hypertensive heart and chronic kidney disease with heart failure and stage 1 through stage 4 chronic kidney disease, or unspecified chronic kidney disease; I50.42 Chronic combined systolic (congestive) and diastolic (congestive) heart failure; N18.9 Chronic kidney disease, unspecified; E11.22 Type 2 diabetes mellitus with diabetic chronic kidney disease; I48.91 Unspecified atrial fibrillation; R31.0 Gross hematuria; E78.5 Hyperlipidemia, unspecified; E03.9 Hypothyroidism, unspecified; Z79.01 Long term (current) use of anticoagulants; Z79.4 Long term (current) use of insulin; Z86.73 Personal history of transient ischemic attack (TIA), and cerebral infarction without residual deficits; X58.XXXD Exposure to other specified factors, subsequent encounter
CPT/HCPCS: 36415; 70450; 71045; 74176; 80053; 81001; 83605; 84484; 85025; 87040; 93005; 96374; 99285; A4565; J2270

== ENCOUNTER 2023-08-14 20:57 | Inpatient (IN) | payer MEDICARE, SELFPAY ==
--- NOTE | ~2023-08-14 | MR_ITS ---
MRA HEAD History: CVA Technique: 3D time of flight MRA of the head is performed. Findings: The right and left distal vertebral arteries and the basilar and posterior cerebral arterie s are normal. Right and left distal internal carotid arteries and anterior and middle cerebral arteri es are normal. There is no aneurysm, stenosis, or occlusion. Impression: No occlusion, stenosis, or aneurysm. Reviewed, dictated and finalized at location . Impression: No occlusion, stenosis, or aneurysm.
--- NOTE | ~2023-08-14 | CT_ITS ---
EXAMINATION: CT brain wo con DATE: 08/18/2023 12:57 INDICATION: Altered mental status TECHNIQUE: Computed tomography (CT) of the head was performed without intravenous contrast. Sagittal and coronal reconstructions were performed. The mA was adjusted according to patient size. Iterative reconstruction technique was employed. The dose-length product was 605.33 mGy-cm. COMPARISON: head CT dated 08/14/2023 FINDINGS: Encephalomalacia in the left occipital lobe consistent with chronic infarct. No acute intracranial he morrhage, acute infarction or abnormal extra axial fluid collection. There is moderate scattered whit e matter hypoattenuation consistent with chronic small vessel ischemic disease. Symmetric prominence of the sulci consistent with mild age-appropriate diffuse cerebral volume loss. Ventricles are normal and symmetric. No mass/mass effect. Changes of bilateral intraocular lens replacement. The orbits an d mastoid air cells are normal. Unchanged opacification of the bilateral maxillary sinuses with incre ased central density and some inward bowing of the peck which are mildly thickened and sclerotic con sistent with chronic sinusitis. Small amount of additional dependent mucus in the right sphenoid sinu s consistent with acute sinusitis. IMPRESSION: 1. Old left occipital lobe infarct. No acute intracranial process. 2. Age-related changes including mild diffuse volume loss and moderate scattered white matter hypoatt enuation consistent with chronic small vessel ischemic disease. 3. Acute on chronic sinusitis. Reviewed, dictated and finalized at location A. IMPRESSION: 1. Old left occipital lobe infarct. No acute intracranial process. 2. Age-related changes including mild diffuse volume loss and moderate scattere d white matter hypoattenuation consistent with chronic small vessel ischemic di sease. 3. Acute on chronic sinusitis.
--- NOTE | ~2023-08-14 | MR_ITS ---
MRI of the brain Clinical History: CVA Technique: Axial and sagittal T1-weighted images were acquired. These were followed by axial T2-weigh abigail, diffusion weighted, gradient, and FLAIR images. Following intravenous administration of 16 cc Mu ltiHance gadolinium, T1-weighted fat-sat imaging was performed in the axial and coronal planes. Findings: There is no acute infarct, intracranial hemorrhage, or mass lesion. Chronic left occipital lobe infarct present. There is moderate to advanced chronic microvascular ischemic change in the collette ventricular white matter bilaterally otherwise. Ventricles and subarachnoid spaces are mildly dilated. Paranasal sinuses and mastoid air cells are cl ear. Orbits are unremarkable. Major intracranial flow voids appear intact. Sagittal midline structures are intact. No abnormal postcontrast enhancement identified. IMPRESSION: No acute infarct, acute intracranial hemorrhage, or mass lesion. Chronic left occipital lobe infarct. Moderate to advanced chronic microvascular ischemic changes and mild generalized atrophy. Reviewed, dictated and finalized at [facility]. IMPRESSION: No acute infarct, acute intracranial hemorrhage, or mass lesion. Chronic left occipital lobe infarct. Moderate to advanced chronic microvascular ischemic changes and mild generalize d atrophy.
--- NOTE | ~2023-08-14 | US_ITS ---
US abdomen limited INDICATION: Distended gallbladder PROCEDURE: Realtime right upper abdominal ultrasound. COMPARISON: No prior studies for comparison. FINDINGS: The pancreas is normal without focal mass or pancreatic ductal dilation. Liver echotexture is normal without focal mass or intrahepatic biliary dilatation. There is normal directional flow i n the portal vein. The gallbladder is normal without stones, gallbladder wall thickening or pericholecystic fluid. Comm on bile duct measures 5 mm. No sonographic Cornejo's sign. IMPRESSION: 1: Normal limited abdominal ultrasound. Reviewed, dictated and finalized at location B.
--- NOTE | ~2023-08-14 | US_ITS ---
EXAMINATION: US carotid duplex BI DATE: 08/15/2023 15:39 INDICATION: Encephalopathy with concern for acute stroke. Cerebral atherosclerosis. TECHNIQUE: Grayscale, color Doppler, and pulsed Doppler images of the cervical carotid arteries were obtained. The degree of vessel stenosis is placed in one of the following categories: normal, <50%, 5 0-69%, >=70% but less than near-occlusion, near-occlusion, or total occlusion. Note that percent sten osis relative to normal distal artery lumen diameter is indirectly measured from velocity measurement s as described by Kristopher, et al. Radiology 2003; 229:340-346. COMPARISON: None. FINDINGS: RIGHT: The right common carotid artery (CCA) peak systolic velocity (PSV) is 36 cm/s. The right internal car otid artery (ICA) PSV is 62 cm/s. The right ICA end-diastolic velocity (EDV) is 19 cm/s. The right IC A/CCA PSV ratio is 1.7. Grayscale and color Doppler images yield an estimate of <50% diameter reducti on from plaque in the ICA. The external carotid artery (ECA) PSV is 89 cm/s. There is antegrade flow in the right vertebral artery. LEFT: The left CCA PSV is 47 cm/s. The left ICA PSV is 74 cm/s. The left ICA EDV is 19 cm/s. The left ICA/C CA PSV ratio is 1.6. Grayscale and color Doppler images yield an estimate of <50% diameter reduction from plaque in the ICA. The ECA PSV is 75 cm/s. There is antegrade flow in the left vertebral artery. IMPRESSION: 1. <50% stenosis in the right internal carotid artery. 2. <50% stenosis in the left internal carotid artery. Reviewed, dictated and finalized at location A.
--- NOTE | 2023-08-14 21:26 | ADMGEN ---
This patient, Nara Post, was admitted to Medical Room 341-01. Patient/family oriented to hospital policies and general routines including ID bracelet, bed and alarms, visiting hours, pain management, procedures, bathroom and other care routines, personal items, smoking policy, room service/diet, and visiting hours. Information on how to activate the Rapid Response Team has been discussed. Patient/Family are encouraged to report perceived risks to care and to ask questions if they do not understand what they are told or what they should do.
[2023-08-14 21:35] LABS: Glucose Point of Care 145 mg/dl (65-105)
[2023-08-14 21:55] VITALS: BP 127/66; PULSE 78; RESP 18; TEMP 36.3; O2SAT 95
[2023-08-14 22:00] VITALS: BMI 29.6
[2023-08-15] VITALS (10 sets, daily range): BP systolic 119–135; BP diastolic 49–59; PULSE 66–78; RESP 16–22; TEMP 36.6–36.7; O2SAT 95–98
--- NOTE | 2023-08-15 | ECHO_ITS ---
Patient Info Name: Nara Post Age: 83 years : 1940 Gender: Female Ht: 65 in Wt: 177 lbs BSA: 1.94 m2 HR: 73 bpm BP: 127 / 66 mmHg Heart Rhythm: Sinus Rhythm, Left Bundle Branch Block Technical Quality: Fair Exam Date: 08/15/2023 3:46 PM Exam Location: Echo Lab Patient Status: Outpatient Admit Date: 08/14/2023 Staff Ordering Physician: Beto Jimenez APRN Human Resources Benefits Assistant: Faviola Donato RDCS Attending Provider: Kiera Willis MD Referring Physician: Tony MARAVILLA; Exam Type: CA echo dop bubble study w con Study Info Indications - stroke Complete two-dimentional, color flow and Doppler transthoracic echocardiogram is performed with agitated saline and with contrast to opacify the left ventricle and to improve the delineation of the left ventricle endocardial borders. Contrast/Agitated Saline Contrast/Ag. Saline: Agitated Saline Amount: 20.00 ml Existing IV Access: Yes IV Access Condition: patent with no signs of infiltration Contrast/Ag. Saline: Definity Amount: 2.00 ml Administered By: Faviola Donato RDCS Existing IV Access: Yes IV Access Condition: patent with no signs of infiltration Summary 1. Left ventricular chamber dimension is normal. 2. Left ventricular systolic function is moderately reduced, estimated at 30-35%. 3. There is mildly increased left ventricular wall thickness. 4. Left ventricular septal wall motion is abnormal with septal motion related to bundle branch block. 5. Right ventricular systolic function is normal. 6. Left atrial chamber dimension is mildly enlarged. 7. Intact interatrial septum visualized by color flow and agitated saline imaging. Negative bubble study. 8. There is mild tricuspid valve regurgitation. Left Ventricle Left ventricular chamber dimension is normal. Left ventricular systolic function is moderately reduced, estimated at 30-35%. There is mildly increased left ventricular wall thickness. Left ventricular septal wall motion is abnormal with septal motion related to bundle branch block. The left ventricular diastolic function is indeterminate. Right Ventricle Right ventricular chamber dimension is normal. Right ventricular systolic function is normal. Left Atria Left atrial chamber dimension is mildly enlarged. Right Atria Right atrial chamber dimension is normal. Atrial Septum Intact interatrial septum visualized by color flow and agitated saline imaging. Negative bubble study. Aortic Valve The aortic valve is not well visualized. There is no aortic valve regurgitation. There is moderate aortic valve calcification. Pulmonic Valve There is no pulmonic regurgitation. Mitral Valve The mitral valve has thickened leaflets. There is trace mitral valve regurgitation. The mitral valve annulus is severely calcified. Tricuspid Valve There is mild tricuspid valve regurgitation. Pericardium/Pleural There is no pericardial effusion. Inferior Vena Cava Normal inferior vena cava with >50% collapse upon inspiration consistent with normal right atrial pressure, 3 mmHg. Aorta The aortic root size at the sinus of Valsalva is normal. Left Ventricular Outflow Tract Name Value Normal LVOT 2D LVOT Diameter 1.9 cm
--- NOTE | 2023-08-15 03:52 | PM.IMHP ---
H&P: HPI History of Present Illness Date/Time: 08/15/23 03:52 Chief Complaint: Stroke with right-sided weakness Narrative: This is an 83-year-old female patient resident of assisted living facility recently discharged from swing bed program in [place] after receiving therapy for compression fracture in her spine. A few days into her stay there is documentation that she altered level of consciousness, weakness difficulty standing and concern for absence seizures. Keppra level was checked and was actually supratherapeutic so her dose was decreased. Patient was discharged home, discharge summary not completed, patient not alert to provide further HPI and ROS. On presentation to the ER in [place] patient was altered level of consciousness not following commands, aphasia with a GCS of 7. She was later more awake and demonstrated right-sided weakness scoring at least 5 on the NIH stroke scale. It was reported that patient was ambulatory with her walker until around 11:00 a.m. on 08/14/2023. She was not a TNK candidate as she takes Eliquis. CT scan at outlying facility does show evidence of a small new left thalamic infarct. Patient was transferred for MRI and Neurology consultation. Review of Systems Review of Systems: ROS unobtainable: Yes unobtainable due to mental status PMFSH Past Medical History Medical History Ankle pain, right Chronic combined systolic and diastolic CHF (congestive heart failure) CVA (cerebral vascular accident) History of seizure Hyperlipidemia Hypertension Hypothyroidism Hypoxic Leukocytosis Peripheral neuropathy Pulmonary embolism Type 2 diabetes mellitus Vitamin D deficiency Surgical History Surgical History History of bilateral tubal ligation Status post cataract extraction of both eyes with insertion of intraocular lens Family History Family History Father Alcoholism Mother Breast cancer Ovarian cancer Social History Social History Social History: Patient lives at home with her of over 60 years. She stated that she briefly smoked for a couple of years when she was young. She denies any significant alcohol use. She ambulates with a Rollator. Code status: DNR/DNI (per patient request) Surrogate decision maker: Smoking status: Never smoker Second hand tobacco smoke exposure: No Alcohol intake: never Substance use: never Substance use type: does not use Do You Feel Safe in your Home?: Yes Lack of Transportation: No Lack of Food: Never True Current Housing: I Have Housing Concerned About Future Housing: No Difficulty Paying Gas/Electric Bills: No Difficulty Paying for Meds: No Currently Unemployed: No Education: High School Diploma/GED Difficulty w/ Childcare or Family Care: No Spiritual care concerns: No Meds Home Medications and Allergies Home Medications Medication Instructions Recorded Confirmed Type cholecalciferol (vitamin D3) 25 25 mcg PO DAILY #30 tabs 03/11/23 08/14/23 Rx mcg (1,000 unit) tablet gabapentin 100 mg capsule 100 mg PO HS #30 caps 03/11/23 08/14/23 Rx mirabegron 50 mg tablet,extended 50 mg PO DAILY #30 tabs 03/11/23 08/14/23 Rx release 24 hr (Myrbetriq) sacubitril 24 mg-valsartan 26 mg 1 tablet PO BID #60 tabs 03/11/23 08/14/23 Rx tablet (Entresto) spironolactone 25 mg tablet 25 mg PO DAILY #30 tabs 03/11/23 08/14/23 Rx venlafaxine 75 mg capsule,extended 75 mg PO DAILY #30 caps 03/11/23 08/14/23 Rx release 24 hr atorvastatin 80 mg tablet 80 mg PO HS 03/21/23 08/14/23 History acetaminophen 500 mg capsule 1,000 mg PO TID PRN pain #90 caps 07/29/23 08/14/23 Rx apixaban 2.5 mg tablet (Eliquis) 2.5 mg PO BID 07/29/23 08/14/23 History lidocaine 5 % topical patc
[2023-08-15 05:53] LABS: Basophils Absolute Auto 0.1 K/mm3 (0.0-0.1); Basophils Percent Auto 1.8 % (0.2-1.2); Eosinophils Absolute Auto 0.5 K/mm3 (0-0.3); Eosinophils Percent Auto 8.2 % (0-4.4); Hematocrit 35.8 % (37.0-47.0); Hemoglobin 10.9 g/dL (12.0-15.0); Immature Granulocyte Absolute 0.01 K/mm3 (0.00-0.031); Immature Granulocyte Percent A 0.2 % (0-0.5); Lymphocytes Absolute Auto 1.82 K/mm3 (0.9-3.2); Mean Corpuscular HGB Conc 30.4 g/dl (32-36); Mean Corpuscular Hemoglobin 29.2 pg (26-34); Mean Platelet Volume 9.2 fl (7.4-10.4); Monocytes Absolute Auto 0.6 K/mm3 (0.1-0.6); Monocytes Percent Auto 8.5 % (2.6-8.5); Neutrophils Absolute Auto 3.5 K/mm3 (1.3-6.7); Neutrophils Percent Auto 53.3 % (45.5-73.1); Platelet Count Result 311 k/mm3 (150-375); Red Blood Count 3.73 M/mm3 (4.2-5.4); Red Cell Distribution Width 14.6 % (11.5-14.5); White Blood Count 6.5 K/mm3 (4.5-10.0)
[2023-08-15] MEDS: LEVOTHYROXINE SODIUM 75 MCG TABLET PO (06:00)
[2023-08-15 06:04] LABS: Alanine Aminotransferase 18 U/L (6-35); Alkaline Phosphatase 147 U/L (38-126); Anion Gap 9 mmol/L (4-12); Aspartate Amino Transferase 26 U/L (14-36); Bilirubin,Total 0.6 mg/dL (0.2-1.3); Blood Urea Nitrogen 25 mg/dL (7-17); Calcium 9.2 mg/dL (8.4-10.2); Carbon Dioxide 24 mmol/L (22-30); Chloride 105 mmol/L (98-107); Cholesterol 116 mg/dL (0-200); Estimated CRCL calculation 28 ml/min; Estimated Glomerular Filt Rate 36; Glucose 131 mg/dL (65-110); HDL Direct 39 mg/dL; Potassium 4.4 mmol/L (3.4-5.0); Sodium 138 mmol/L (137-145); Triglycerides 112 mg/dL (<150)
[2023-08-15 06:15] LABS: LDL Cholesterol Direct 59 mg/dL
[2023-08-15 08:06] LABS: Glucose Point of Care 134 mg/dl (65-105)
[2023-08-15] MEDS: THERAPEUTIC MULTIVITAMINS/MINERALS TAB (*BKC) 1 TABLET PO (08:45)
[2023-08-15] MEDS: METOPROLOL SUCCINATE EXT REL 25 MG TABCR PO (08:45)
[2023-08-15] MEDS: VENLAFAXINE HCL XR 75 MG CAP.ER.24H PO (08:46)
[2023-08-15] MEDS: levETIRAcetam 500 MG TABLET PO ×2 (08:46→20:48)
[2023-08-15] MEDS: MONTELUKAST SODIUM 10 MG TABLET PO (08:46)
[2023-08-15] MEDS: MIRABEGRON 50 MG ER TABLET PO (08:46)
[2023-08-15] MEDS: ASPIRIN 81 MG ENTERIC TABLET PO (08:46)
[2023-08-15] MEDS: EMPAGLIFLOZIN 10 MG TABLET PO (08:46)
[2023-08-15] MEDS: APIXABAN 2.5 MG TABLET PO ×2 (08:46→20:49)
[2023-08-15] MEDS: CHOLECALCIFEROL 1,000 UNITS TABLET 1000 UNITS PO (08:46)
[2023-08-15] MEDS: lamoTRIgine 100 MG TABLET PO ×2 (08:47→20:49)
[2023-08-15] MEDS: SACUBITRIL/VALSARTAN 24-26 MG TABLET 1 TAB PO ×2 (08:47→20:49)
--- NOTE | 2023-08-15 09:37 | WPDNEURCNPN ---
Assessment and Plan Assessment and plan (1) CVA (cerebral vascular accident): Code(s): I63.9 - Cerebral infarction, unspecified Status: Acute (2) Chronic anticoagulation: Code(s): Z79.01 - tank terminal gauger (current) use of anticoagulants Status: Acute (3) Atrial fibrillation: Code(s): I48.91 - Unspecified atrial fibrillation Status: Acute Plan Nara Post is a 83 year old female with a history of diabetes, CKD, seizures, COPD, thyroid disease, atrial fibrillation on anticoagulation, cardiomyopathy presenting due to concerns for stroke -- (change in mentation, aphasia, R sided weakness). CT head showed hypodensity in L thalamus, concerning for acute stroke. Patient is already on anticoagulation and aspirin. - MRI brain - CTA brain/carotid -- if unable due to renal function -- obtain MRA brain w/o contrast and carotid Doppler - LDL is 59, which is at goal. Continue Lipitor 80mg daily - Continue aspirin 81mg daily - Continue Eliquis 2.5mg BID -- if she does have confirmed stroke, would consult Cardiology regarding appropriateness of dose adjustment? - A1c is pending - Obtain echo with bubble study Consult date: 08/15/23 HPI: Nara Post is a 83 year old female with a history of diabetes, CKD, seizures, COPD, thyroid disease, atrial fibrillation on anticoagulation, cardiomyopathy presenting due to concerns for stroke. Patient was residing in assisted living facility. During the admission, she had change in her mental status and staring episodes. Her Keppra level was checked which was supratherapeutic so her dose was decreased. She was discharged home on 08/11. She presented shortly after to ER in [place] on 08/13 for altered mental status, R sided weakness, and aphasia. Patient reportedly was able to ambulate with her walker until around 10AM on 08/14/23/ She was deemed not a TNK candidate due to her being on Eliquis. CT scan showed hypodensity in the L thalamus concerning for acute infarct. No vessel imaging was obtained. Patient is on aspirin 81mg daily, Lipitor 80mg daily, and Eliquis 2.5mg BID (presumably due to age > 80 and renal disease). Patient reports that her daughter sets up her medications for her on daily basis. Review of Systems Review of Systems: All systems reviewed & are unremarkable except as noted in HPI and below PMFSH Past Medical History Medical History Ankle pain, right Chronic combined systolic and diastolic CHF (congestive heart failure) CVA (cerebral vascular accident) History of seizure Hyperlipidemia Hypertension Hypothyroidism Hypoxic Leukocytosis Peripheral neuropathy Pulmonary embolism Type 2 diabetes mellitus Vitamin D deficiency Surgical History Surgical History History of bilateral tubal ligation Status post cataract extraction of both eyes with insertion of intraocular lens Family History Family History Father Alcoholism Mother Breast cancer Ovarian cancer Social History Social History Social History: Patient lives at home with her of over 60 years. She stated that she briefly smoked for a couple of years when she was young. She denies any significant alcohol use. She ambulates with a Rollator. Code status: DNR/DNI (per patient request) Surrogate decision maker: Smoking status: Never smoker Second hand tobacco smoke exposure: No Alcohol intake: never Substance use: never Substance use type: does not use Do You Feel Safe in your Home?: Yes Lack of Transportation: No Lack of Food: Never True Current Housing: I Have Housing Concerned About Future Housing: No Difficulty Paying Gas/Electric Bills: No Difficulty Paying for Meds: No Currently Unemployed: No Education: High School Diploma/GED
--- NOTE | 2023-08-15 09:57 | PCSTNOTE ---
Please refer to the Bedside Swallow Evaluation in the EMR. Please note, silent aspiration cannot be ruled out at bedside. The above pleasant and cooperative pt was seen for a swallow evaluation at bedside. The pt was positioned upright in the bed and tested with items from her breakfast tray. She was alert slightly somnolent & oriented x 3; she was able to follow simple commands. She is currently on a regular diet. Oral mucosa is dry but she was able to dry swallow on command; pt wears full upper and lower dentures which were in place for testing. Oral peripheral exam revealed mild generalized lingual and labial weakness with a slight decrease in ROM. Vocal quality is clear but weak and hoarse which the pt stated is x 1 month or so. She was tested with items from her breakfast tray, i.e. oatmeal, scrambled eggs, cut up sausage, orange juice and water. Trials were initially controlled but upon no appearance of difficulty pt fed herself thus allowing testing of uncontrolled amounts. The oral stages appeared within functional limits. No oral leakage was noted but pt required a verbal cue to clear generalized residue on tongue prior to taking another bite. Pt was able to clear on residual and followed directive to clear any oral contents before taking another bite. During the pharyngeal stage, swallow reflex appeared prompt & laryngeal elevation adequate. No overt s/s of aspiration were exhibited; however, silent aspiration cannot be ruled out at bedside. General impression: functional swallow ability. Recommendation: Continue current diet. Thank you for this referral.
--- NOTE | 2023-08-15 10:00 | PM.IMPN ---
Progress Note: A&P Assessment and Plan (1) CVA (cerebral vascular accident): Code(s): I63.9 - Cerebral infarction, unspecified Status: Acute Assessment and Plan: CT imaging evidence of left thalamic stroke with right arm/right leg weakness and speech disturbance. Not TNK eligible due to Eliquis for chronic afib history. MRI and Neurology consult ordered. - notes reviewed: MRI brain - CTA brain/carotid -- if unanable due to renal functoin -- obtain MRA brain w/o contrast and carotid doppler - LDL is 59, which is at goal. Continue Lipitor 80mg daily - Continue aspirin 81mg daily - Continue Eliquis 2.5mg BID - A1c is pending - Obtain echo with bubble study (2) Atrial fibrillation: Code(s): I48.91 - Unspecified atrial fibrillation Status: Acute Assessment and Plan: See above (3) Chronic anticoagulation: Code(s): Z79.01 - assisted (current) use of anticoagulants Status: Acute Assessment and Plan: Eliquis which was recently dose reduced due to age and significant renal dysfuntion (4) History of seizure: Code(s): Z87.898 - Personal history of other specified conditions Status: Chronic Assessment and Plan: Possible abscence seizures last week while in [place] [facility] and possible another today while in ER (5) Compression fracture: Status: Acute Assessment and Plan: Patient fell when her walker slid out from under her on 07/29/23 landing on her bottom with resultant T12 burst fracture. Patient was in swing bed program for about 2 weeks for PT/OT and pain control for this event. DNR status, no plans for any intervention. (6) IDDM (insulin dependent diabetes mellitus): Status: Acute Assessment and Plan: NPO until she passes swallow screen, then diabetic/low sodium diet Plan MRI ordered for further imaging of likely acute/subacute left thalamic stroke. DNR status Neurology consulted Afib history, Eliquis recently dose reduced due to age over 80 and creatinine clearance under 30 Echo with bubble study ordered Time Spent With Patient Time with patient: 25 - 35 minutes Subjective Date/time seen: 08/15/23 10:00 Interval history: Stroke with right-sided weakness Narrative retrieved from H/P: 83-year-old female patient resident of assisted living facility recently discharged from swing bed program in [place] after receiving therapy for compression fracture in her spine. A few days into her stay there is documentation that she altered level of consciousness, weakness difficulty standing and concern for absence seizures. Keppra level was checked and was actually supratherapeutic so her dose was decreased. Patient was discharged home, discharge summary not completed, patient not alert to provide further HPI and ROS. On presentation to the ER in [place] patient was altered level of consciousness not following commands, aphasia with a GCS of 7. She was later more awake and demonstrated right-sided weakness scoring at least 5 on the NIH stroke scale. It was reported that patient was ambulatory with her walker until around 11:00 a.m. on 08/14/2023. She was not a TNK candidate as she takes Eliquis. CT scan at outlying facility does show evidence of a small new left thalamic infarct. Patient was transferred for MRI and Neurology consultation 08/14 pt is seen and exmained today. neurology saw her- ordered imaging studies, ASA, statin (ldl at goal), hga1c, echo. Review of Systems Review of Systems: ROS unobtainable: Yes unobtainable due to mental status Exam Narrative: Patient drowsy and not wanting to participate in exam at this time. Const: General: no acute distress and well nourished Nutritional Appearance: well nourished Limitations: altered mental status HENMT: Head: normal to inspection Ears: external ears normal Face/Nose/Sinus: Normal external nose present Eyes: Conjunctivae: conjunctivae normal Pupil
--- NOTE | 2023-08-15 10:44 | P.PNIM_ITS ---
Progress Note: A&P Assessment and Plan (1) CVA (cerebral vascular accident): Code(s): I63.9 - Cerebral infarction, unspecified Status: Acute Assessment and Plan: 08/15/23: * CT imaging evidence of left thalamic stroke with right arm/right leg weakness and speech disturbance.Not TNK eligible due to Eliquis for chronic afib history. * Obtain echo with bubble study * MRI of the brain and brainstem ordered * Neurology consulted * Neuro checks q.4 hours * Continue Lipitor 80 mg daily, aspirin 81 mg daily Eliquis 2.5 mg b.i.d. * Continuous telemetry monitoring * Continue aspiration precautions * Obtain swallow study (2) Atrial fibrillation: Code(s): I48.91 - Unspecified atrial fibrillation Status: Acute Assessment and Plan: 08/15/23: * Continue Eliquis 2.5 mg b.i.d. * Continue metoprolol ER 25 mg daily (3) History of seizure: Code(s): Z87.898 - Personal history of other specified conditions Status: Chronic Assessment and Plan: 08/15/23: * Possible absence seizure last week while in [place] [facility] bed program * Continue Keppra and Lamictal * Neurology following * Continue seizure precautions (4) Chronic combined systolic and diastolic CHF (congestive heart failure): Code(s): I50.42 - Chronic combined systolic (congestive) and diastolic (congestive) heart failure Status: Chronic Assessment and Plan: 08/15/23: * Last echo reviewed from 02/18/2023 showed a moderately reduced LV systolic function with an estimated EF of 35-40%, grade 3 diastolic dysfunction, moderate pulmonary hypertension with an estimated pulmonary arterial systolic pressure of 48 mmHg * Will obtain another echo with bubble study today due to new stroke like symptoms * Patient currently on Jardiance, metoprolol, spironolactone, and Entresto (5) Compression fracture: Status: Acute Assessment and Plan: 08/15/23: * Patient fell when her walker slid out from under her on 07/29/23 landing on her bottom with resultant T12 burst fracture. Patient was in [place] [facility] bed program for about 2 weeks for PT/OT and pain control for this event. * CT of the abdomen/pelvis shown mild burst fracture at T12 with minimal 2mm retropulsion, new since prior examination on 03/21/23 * Continue pain control * PT and OT ordered. (6) IDDM (insulin dependent diabetes mellitus): Status: Acute Assessment and Plan: 08/15/23: * BG ranging 134-145 * Hgb A1C pending * Accu checks Q6h * NPO status until after swallow study * Lantus 34 units on hold for now * Low dose SSI ordered * hypoglycemic protocol in place Time Spent With Patient Time with patient: Greater than 35 minutes Subjective Date/time seen: 08/15/23 10:44 Interval history: Interval history: This is an 83-year-old female who presented to the hospital today for evaluation of altered mental status, weakness, concerns for seizure. Patient was recently at [facility] receiving therapy for compression fracture in her spine. Keppra level was checked at that point and was actually supratherapeutic so her dose was decreased. She was discharged back to her assisted living facility. She was found with altered level of consciousness, not following commands, aphasia with a GCS score 7. Cup in the hospital included a head CT which showed some subtle hypodensity in the left thalamus may represent acute infarction, acute on chronic sinusitis. Chest x-ray was negative. Abdomen/pelvis CT showed a mild burst fracture at T12 with minimal 2 mm retropulsion which is new si
--- NOTE | 2023-08-15 10:44 | PM.IMPN ---
Progress Note: A&P Assessment and Plan (1) CVA (cerebral vascular accident): Code(s): I63.9 - Cerebral infarction, unspecified Status: Acute Assessment and Plan: 08/15/23: CT imaging evidence of left thalamic stroke with right arm/right leg weakness and speech disturbance.Not TNK eligible due to Eliquis for chronic afib history. Obtain echo with bubble study MRI of the brain and brainstem ordered Neurology consulted Neuro checks q.4 hours Continue Lipitor 80 mg daily, aspirin 81 mg daily Eliquis 2.5 mg b.i.d. Continuous telemetry monitoring Continue aspiration precautions Obtain swallow study (2) Atrial fibrillation: Code(s): I48.91 - Unspecified atrial fibrillation Status: Acute Assessment and Plan: 08/15/23: Continue Eliquis 2.5 mg b.i.d. Continue metoprolol ER 25 mg daily (3) History of seizure: Code(s): Z87.898 - Personal history of other specified conditions Status: Chronic Assessment and Plan: 08/15/23: Possible absence seizure last week while in [place] swing bed program Continue Keppra and Lamictal Neurology following Continue seizure precautions (4) Chronic combined systolic and diastolic CHF (congestive heart failure): Code(s): I50.42 - Chronic combined systolic (congestive) and diastolic (congestive) heart failure Status: Chronic Assessment and Plan: 08/15/23: Last echo reviewed from 02/18/2023 showed a moderately reduced LV systolic function with an estimated EF of 35-40%, grade 3 diastolic dysfunction, moderate pulmonary hypertension with an estimated pulmonary arterial systolic pressure of 48 mmHg Will obtain another echo with bubble study today due to new stroke like symptoms Patient currently on Jardiance, metoprolol, spironolactone, and Entresto (5) Compression fracture: Status: Acute Assessment and Plan: 08/15/23: Patient fell when her walker slid out from under her on 07/29/23 landing on her bottom with resultant T12 burst fracture. Patient was in [place] [facility] bed program for about 2 weeks for PT/OT and pain control for this event. CT of the abdomen/pelvis shown mild burst fracture at T12 with minimal 2mm retropulsion, new since prior examination on 03/21/23 Continue pain control PT and OT ordered. (6) IDDM (insulin dependent diabetes mellitus): Status: Acute Assessment and Plan: 08/15/23: BG ranging 134-145 Hgb A1C pending Accu checks Q6h NPO status until after swallow study Lantus 34 units on hold for now Low dose SSI ordered hypoglycemic protocol in place Time Spent With Patient Time with patient: Greater than 35 minutes Subjective Date/time seen: 08/15/23 10:44 Interval history: Interval history: This is an 83-year-old female who presented to the hospital today for evaluation of altered mental status, weakness, concerns for seizure. Patient was recently at [facility] receiving therapy for compression fracture in her spine. Keppra level was checked at that point and was actually supratherapeutic so her dose was decreased. She was discharged back to her assisted living facility. She was found with altered level of consciousness, not following commands, aphasia with a GCS score 7. Cup in the hospital included a head CT which showed some subtle hypodensity in the left thalamus may represent acute infarction, acute on chronic sinusitis. Chest x-ray was negative. Abdomen/pelvis CT showed a mild burst fracture at T12 with minimal 2 mm retropulsion which is new since her prior exam on 03/10/2023, gallbladder hydrops were also noted. Initial labs showed a normal white blood cell count of 6.5, hemoglobin 10.9 creatinine 1.4, EGFR 36. Blood cultures were obtained and are pending. Echocardiogram from 02/18/2023 was reviewed and showed moderately reduced LV systolic function with an estimated EF of 35-40%, grade 3 diastolic dysfunction, moderate pulmonary hypertension w
[2023-08-15 11:45] LABS: Glucose Point of Care 126 mg/dl (65-105)
--- NOTE | 2023-08-15 12:00 | PC.NURSE ---
Patient off of unit to MRI
[2023-08-15] MEDS: FLUTICASONE/SALMETEROL 115-21 MCG INHALER 1 PUFF 2 PUFF INHALATION ×2 (13:56→19:50)
[2023-08-15] MEDS: PERFLUTREN LIPID MICROSPHERES 1.5 ML VIAL DILUTED TO 10 ML TOTAL VOLUME IV PUSH (16:25)
[2023-08-15 16:41] LABS: Glucose Point of Care 119 mg/dl (65-105)
--- NOTE | 2023-08-15 17:41 | IVDEFINITY ---
Prior to administration of IV Definity the patient was educated on the risks and benefits of the imaging enhancing agent including potential adverse side effects. The patient verbalized understanding. Allergies were verified. No exclusion criteria were identified and at least one of the following inclusion criteria were met: 1) physician request, 2) patient technically difficult to image (per the [place] [employer] guidelines of two or more segments not discernable within the apical view), or 3) questionable left ventricular function. ?
[2023-08-15] MEDS: GABAPENTIN 100 MG CAPSULE PO (20:49)
[2023-08-15] MEDS: ATORVASTATIN 40 MG TABLET 80 MG PO (20:49)
[2023-08-15 20:59] LABS: Glucose Point of Care 212 mg/dl (65-105)
[2023-08-15] MEDS: INSULIN ASPART (*BKC) 100 UNITS/ML SUB-Q (21:06)
[2023-08-16] VITALS (13 sets, daily range): BP systolic 118–132; BP diastolic 47–73; PULSE 66–95; RESP 16–18; TEMP 36.4–36.6; O2SAT 95–96
[2023-08-16 05:23] LABS: Basophils Absolute Auto 0.1 K/mm3 (0.0-0.1); Basophils Percent Auto 1.3 % (0.2-1.2); Eosinophils Absolute Auto 0.5 K/mm3 (0-0.3); Eosinophils Percent Auto 6.3 % (0-4.4); Hematocrit 34.3 % (37.0-47.0); Hemoglobin 10.9 g/dL (12.0-15.0); Immature Granulocyte Absolute 0.03 K/mm3 (0.00-0.031); Immature Granulocyte Percent A 0.4 % (0-0.5); Lymphocytes Absolute Auto 1.81 K/mm3 (0.9-3.2); Lymphocytes Percent Auto 23.7 % (18.3-44.2); Mean Corpuscular HGB Conc 31.8 g/dl (32-36); Mean Corpuscular Hemoglobin 29.9 pg (26-34); Mean Platelet Volume 9.1 fl (7.4-10.4); Monocytes Absolute Auto 0.6 K/mm3 (0.1-0.6); Monocytes Percent Auto 7.9 % (2.6-8.5); Neutrophils Absolute Auto 4.6 K/mm3 (1.3-6.7); Neutrophils Percent Auto 60.4 % (45.5-73.1); Platelet Count Result 295 k/mm3 (150-375); Red Blood Count 3.65 M/mm3 (4.2-5.4); Red Cell Distribution Width 14.5 % (11.5-14.5); White Blood Count 7.6 K/mm3 (4.5-10.0)
[2023-08-16 05:32] LABS: Alanine Aminotransferase 20 U/L (6-35); Albumin Level 3.9 g/dL (3.5-5.1); Alkaline Phosphatase 153 U/L (38-126); Anion Gap 9 mmol/L (4-12); Aspartate Amino Transferase 24 U/L (14-36); Bilirubin,Total 0.5 mg/dL (0.2-1.3); Blood Urea Nitrogen 28 mg/dL (7-17); Calcium 9.3 mg/dL (8.4-10.2); Carbon Dioxide 27 mmol/L (22-30); Chloride 102 mmol/L (98-107); Estimated CRCL calculation 25 ml/min; Estimated Glomerular Filt Rate 31; Glucose 124 mg/dL (65-110); Magnesium 1.9 mg/dL (1.6-2.3); Potassium 4.6 mmol/L (3.4-5.0); Sodium 138 mmol/L (137-145)
[2023-08-16] MEDS: LEVOTHYROXINE SODIUM 75 MCG TABLET PO (05:54)
[2023-08-16 08:14] LABS: Glucose Point of Care 123 mg/dl (65-105)
[2023-08-16] MEDS: FLUTICASONE/SALMETEROL 115-21 MCG INHALER 1 PUFF 2 PUFF INHALATION ×2 (08:40→19:55)
[2023-08-16] MEDS: EMPAGLIFLOZIN 10 MG TABLET PO (08:56)
[2023-08-16] MEDS: VENLAFAXINE HCL XR 75 MG CAP.ER.24H PO (08:56)
[2023-08-16] MEDS: levETIRAcetam 500 MG TABLET PO ×2 (08:56→20:19)
[2023-08-16] MEDS: lamoTRIgine 100 MG TABLET PO ×2 (08:56→20:19)
[2023-08-16] MEDS: MONTELUKAST SODIUM 10 MG TABLET PO (08:56)
[2023-08-16] MEDS: MIRABEGRON 50 MG ER TABLET PO (08:56)
[2023-08-16] MEDS: SACUBITRIL/VALSARTAN 24-26 MG TABLET 1 TAB PO ×2 (08:56→20:18)
[2023-08-16] MEDS: ASPIRIN 81 MG ENTERIC TABLET PO (08:56)
[2023-08-16] MEDS: CHOLECALCIFEROL 1,000 UNITS TABLET 1000 UNITS PO (08:57)
[2023-08-16] MEDS: METOPROLOL SUCCINATE EXT REL 25 MG TABCR PO (08:57)
[2023-08-16] MEDS: APIXABAN 2.5 MG TABLET PO ×2 (08:57→20:19)
[2023-08-16] MEDS: THERAPEUTIC MULTIVITAMINS/MINERALS TAB (*BKC) 1 TABLET PO (08:57)
--- NOTE | 2023-08-16 09:21 | P.PNIM_ITS ---
Progress Note: A&P Assessment and Plan (1) CVA (cerebral vascular accident): Code(s): I63.9 - Cerebral infarction, unspecified Status: Acute Assessment and Plan: 08/15/23: * CT imaging evidence of left thalamic stroke with right arm/right leg weakness and speech disturbance.Not TNK eligible due to Eliquis for chronic afib history. * Obtain echo with bubble study * MRI of the brain and brainstem ordered * Neurology consulted * Neuro checks q.4 hours * Continue Lipitor 80 mg daily, aspirin 81 mg daily Eliquis 2.5 mg b.i.d. * Continuous telemetry monitoring * Continue aspiration precautions * Obtain swallow study 08/15- carotid doppler- <50% stenosis in the right internal carotid artery. 2. <50% stenosis in the left internal carotid artery. -Brain MRI: No occlusion, stenosis, or aneurysm. No acute infarct, acute intracranial hemorrhage, or mass lesion. Chronic left occipital lobe infarct. Moderate to advanced chronic microvascular ischemic changes and mild generalized atrophy - neurology is follwoing (2) Atrial fibrillation: Code(s): I48.91 - Unspecified atrial fibrillation Status: Acute Assessment and Plan: 08/15/23: * Continue Eliquis 2.5 mg b.i.d. * Continue metoprolol ER 25 mg daily (3) Chronic anticoagulation: Code(s): Z79.01 - intermediate (current) use of anticoagulants Status: Acute Assessment and Plan: see above (4) History of seizure: Code(s): Z87.898 - Personal history of other specified conditions Status: Chronic Assessment and Plan: 08/15/23: * Possible absence seizure last week while in [facility] * Continue Keppra and Lamictal * Neurology following * Continue seizure precautions (5) Compression fracture: Status: Acute Assessment and Plan: 08/15/23: * Patient fell when her walker slid out from under her on 07/29/23 landing on her bottom with resultant T12 burst fracture. Patient was in [facility] for about 2 weeks for PT/OT and pain control for this event. * CT of the abdomen/pelvis shown mild burst fracture at T12 with minimal 2mm retropulsion, new since prior examination on 03/21/23 * Continue pain control * PT and OT ordered. (6) IDDM (insulin dependent diabetes mellitus): Status: Acute Assessment and Plan: 08/15/23: * BG ranging 134-145 * Hgb A1C pending * Accu checks Q6h * NPO status until after swallow study * Lantus 34 units on hold for now * Low dose SSI ordered * hypoglycemic protocol in place 08/15- reviewed- continue Plan h/o chf (systolic/diastolic) 08/15/23: * Last echo reviewed from 02/18/2023 showed a moderately reduced LV systolic function with an estimated EF of 35-40%, grade 3 diastolic dysfunction, moderate pulmonary hypertension with an estimated pulmonary arterial systolic pressure of 48 mmHg * Will obtain another echo with bubble study today due to new stroke like symptoms * Patient currently on Jardiance, metoprolol, spironolactone, and Entresto * Time Spent With Patient Time with patient: Greater than 35 minutes Subjective Date/time seen: 08/16/23 09:21 Review of Systems Review of Systems: All systems reviewed & are unremarkable except as noted in HPI and below Constitutional: Constitutional: Reports as per HPI and Reports no additional constitutional complaints Eyes: Eyes: Reports as per HPI and Reports no additional eye complaints ENT: Reports system reviewed and no additional complaints, except as documente
--- NOTE | 2023-08-16 09:21 | PM.IMPN ---
Progress Note: A&P Assessment and Plan (1) CVA (cerebral vascular accident): Code(s): I63.9 - Cerebral infarction, unspecified Status: Acute Assessment and Plan: 08/15/23: CT imaging evidence of left thalamic stroke with right arm/right leg weakness and speech disturbance.Not TNK eligible due to Eliquis for chronic afib history. Obtain echo with bubble study MRI of the brain and brainstem ordered Neurology consulted Neuro checks q.4 hours Continue Lipitor 80 mg daily, aspirin 81 mg daily Eliquis 2.5 mg b.i.d. Continuous telemetry monitoring Continue aspiration precautions Obtain swallow study 08/15- carotid doppler- <50% stenosis in the right internal carotid artery. 2. <50% stenosis in the left internal carotid artery. -Brain MRI: No occlusion, stenosis, or aneurysm. No acute infarct, acute intracranial hemorrhage, or mass lesion. Chronic left occipital lobe infarct. Moderate to advanced chronic microvascular ischemic changes and mild generalized atrophy - neurology is follwoing (2) Atrial fibrillation: Code(s): I48.91 - Unspecified atrial fibrillation Status: Acute Assessment and Plan: 08/15/23: Continue Eliquis 2.5 mg b.i.d. 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 Patient was in [facility] swing bed program for about 2 weeks for PT/OT and pain control for this event. CT of the abdomen/pelvis shown mild burst fracture at T12 with minimal 2mm retropulsion, new since prior examination on 03/21/23 Continue pain control PT and OT ordered. (6) IDDM (insulin dependent diabetes mellitus): Status: Acute Assessment and Plan: 08/15/23: BG ranging 134-145 Hgb A1C pending Accu checks Q6h NPO status until after swallow study Lantus 34 units on hold for now Low dose SSI ordered hypoglycemic protocol in place 08/15- reviewed- continue Plan h/o chf (systolic/diastolic) 08/15/23: Last echo reviewed from 02/18/2023 showed a moderately reduced LV systolic function with an estimated EF of 35-40%, grade 3 diastolic dysfunction, moderate pulmonary hypertension with an estimated pulmonary arterial systolic pressure of 48 mmHg Will obtain another echo with bubble study today due to new stroke like symptoms Patient currently on Jardiance, metoprolol, spironolactone, and Entresto Time Spent With Patient Time with patient: Greater than 35 minutes Subjective Date/time seen: 08/16/23 09:21 Review of Systems Review of Systems: All systems reviewed & are unremarkable except as noted in HPI and below Constitutional: Constitutional: Reports as per HPI and Reports no additional constitutional complaints Eyes: Eyes: Reports as per HPI and Reports no additional eye complaints ENT: Reports system reviewed and no additional complaints, except as documented and Reports as per HPI Cardiovascular: Cardiovascular: Reports as per HPI and Reports no additional cardiovascular complaints Respiratory: Respiratory: Reports as per HPI and Reports no additional respiratory complaints Gastrointestinal: Gastrointestinal: Reports as per HPI and Reports no additional gastrointestinal complaints Genitourinary: Genitourinary: Reports no additional female genitourinary complaints and Reports as per HPI Musculoskeletal: Musculoskeletal: Report
[2023-08-16 11:51] LABS: Glucose Point of Care 196 mg/dl (65-105)
[2023-08-16 16:59] LABS: Glucose Point of Care 191 mg/dl (65-105)
[2023-08-16 19:52] LABS: Glucose Point of Care 209 mg/dl (65-105)
[2023-08-16] MEDS: GABAPENTIN 100 MG CAPSULE PO (20:19)
[2023-08-16] MEDS: ATORVASTATIN 40 MG TABLET 80 MG PO (20:19)
[2023-08-16] MEDS: INSULIN ASPART (*BKC) 100 UNITS/ML SUB-Q (20:20)
[2023-08-17] VITALS (11 sets, daily range): BP systolic 119–131; BP diastolic 42–61; PULSE 66–72; RESP 18; TEMP 36.5–36.7; O2SAT 94–97
[2023-08-17] MEDS: LEVOTHYROXINE SODIUM 75 MCG TABLET PO (05:25)
[2023-08-17 06:06] LABS: Basophils Absolute Auto 0.1 K/mm3 (0.0-0.1); Basophils Percent Auto 1.3 % (0.2-1.2); Eosinophils Absolute Auto 0.4 K/mm3 (0-0.3); Eosinophils Percent Auto 5.5 % (0-4.4); Hemoglobin 10.8 g/dL (12.0-15.0); Immature Granulocyte Absolute 0.03 K/mm3 (0.00-0.031); Immature Granulocyte Percent A 0.4 % (0-0.5); Lymphocytes Absolute Auto 1.73 K/mm3 (0.9-3.2); Lymphocytes Percent Auto 25.2 % (18.3-44.2); Mean Corpuscular HGB Conc 31.8 g/dl (32-36); Mean Corpuscular Hemoglobin 29.8 pg (26-34); Mean Corpuscular Volume 93.9 fl (80-100); Mean Platelet Volume 9.3 fl (7.4-10.4); Monocytes Absolute Auto 0.5 K/mm3 (0.1-0.6); Monocytes Percent Auto 7.4 % (2.6-8.5); Neutrophils Absolute Auto 4.1 K/mm3 (1.3-6.7); Neutrophils Percent Auto 60.2 % (45.5-73.1); Platelet Count Result 307 k/mm3 (150-375); Red Blood Count 3.62 M/mm3 (4.2-5.4); Red Cell Distribution Width 14.4 % (11.5-14.5); White Blood Count 6.9 K/mm3 (4.5-10.0)
[2023-08-17 06:19] LABS: Alanine Aminotransferase 18 U/L (6-35); Albumin Level 4.1 g/dL (3.5-5.1); Alkaline Phosphatase 147 U/L (38-126); Anion Gap 10 mmol/L (4-12); Aspartate Amino Transferase 24 U/L (14-36); Bilirubin,Total 0.6 mg/dL (0.2-1.3); Blood Urea Nitrogen 33 mg/dL (7-17); Calcium 9.2 mg/dL (8.4-10.2); Carbon Dioxide 25 mmol/L (22-30); Chloride 104 mmol/L (98-107); Estimated CRCL calculation 23 ml/min; Estimated Glomerular Filt Rate 29; Glucose 141 mg/dL (65-110); Potassium 4.3 mmol/L (3.4-5.0); Sodium 139 mmol/L (137-145)
[2023-08-17] MEDS: MONTELUKAST SODIUM 10 MG TABLET PO (08:30)
[2023-08-17] MEDS: ASPIRIN 81 MG ENTERIC TABLET PO (08:30)
[2023-08-17] MEDS: CHOLECALCIFEROL 1,000 UNITS TABLET 1000 UNITS PO (08:30)
[2023-08-17] MEDS: APIXABAN 2.5 MG TABLET PO ×2 (08:30→20:16)
[2023-08-17] MEDS: SACUBITRIL/VALSARTAN 24-26 MG TABLET 1 TAB PO ×2 (08:30→20:16)
[2023-08-17] MEDS: METOPROLOL SUCCINATE EXT REL 25 MG TABCR PO (08:30)
[2023-08-17] MEDS: MIRABEGRON 50 MG ER TABLET PO (08:30)
[2023-08-17] MEDS: THERAPEUTIC MULTIVITAMINS/MINERALS TAB (*BKC) 1 TABLET PO (08:30)
[2023-08-17] MEDS: lamoTRIgine 100 MG TABLET PO ×2 (08:31→20:16)
[2023-08-17] MEDS: EMPAGLIFLOZIN 10 MG TABLET PO (08:31)
[2023-08-17 08:37] LABS: Glucose Point of Care 141 mg/dl (65-105)
[2023-08-17] MEDS: VENLAFAXINE HCL XR 75 MG CAP.ER.24H PO (08:38)
[2023-08-17] MEDS: levETIRAcetam 500 MG TABLET PO (08:38)
[2023-08-17] MEDS: FLUTICASONE/SALMETEROL 115-21 MCG INHALER 1 PUFF 2 PUFF INHALATION ×2 (09:18→20:10)
--- NOTE | 2023-08-17 09:24 | PM.IMPN ---
Progress Note: A&P Assessment and Plan (1) CVA (cerebral vascular accident): Code(s): I63.9 - Cerebral infarction, unspecified Status: Acute Assessment and Plan: Patient presented for AMS, right sided weakness and aphasia. - Head CT 08/13: Subtle hypodensity in the left thalamus, may represent acute infarct. - Brain MRI 08/14: No acute infarct, acute intracranial hemorrhage, or mass lesion. Chronic left occipital lobe infarct. Moderate to advanced chronic microvascular ischemic changes and mild generalized atrophy. - Brain MRA 08/14: No occlusion, stenosis, or aneurysm. - Carotid Doppler 08/14: < 50 % stenosis of the right and left internal carotid arteries - Echo with bubble study 08/14: LVEF 30-35% and negative bubble study, EF 35-40% in 02/2023 - LFTs WNL - Cholesterol, triglycerides, LDL, HLD WNL - Neurochecks q4 hours - Consulted neurology Continue aspirin 81 mg daily Continue eliquis 2.5 mg BID Continue lipitor 80 mg daily (2) Gallbladder hydrops: Code(s): K82.1 - Hydrops of gallbladder Status: Acute Assessment and Plan: Continues to endorse abdominal pain with positive murphys sign on exam. - Abdomen/pelvis CT: Gallbladder hydrops, may be secondary to fasting or obstruction. Correlate with biliary labs. No gallstones or gallbladder inflammatory change present. - LFTs WNL - RUQ US ordered (3) Seizure: Code(s): R56.9 - Unspecified convulsions Status: Acute Assessment and Plan: Concern of possible absence seizure while at [facility] in swing bed. Patient has history of seizures and is taking Keppra and Lamictal. - Keppra level 08/08: 67.2, will redraw level and adjust dosing accordingly. Spoke with neurology Dr. Painter, if level remains elevated will decrease dose to 250 mg BID. - Lamictal 100 mg BID - Seizure precautions (4) Atrial fibrillation: Code(s): I48.91 - Unspecified atrial fibrillation Status: Acute Assessment and Plan: - EKG 08/13: Sinus rhythm with LBBB - Home medications: Eliquis 2.5 mg BID and metoprolol 25 mg daily - Continue home medications - Telemetry (5) IDDM (insulin dependent diabetes mellitus): Status: Acute Assessment and Plan: - hypoglycemia protocol - POC blood glucose ACHS - home medication - Jardiance, sliding scale insulin TIDWM, insulin glargine 34 units - correct regimen ordered - Jardiance, low dose TIDWM - A1C 7.6 (6) Chronic combined systolic and diastolic CHF (congestive heart failure): Code(s): I50.42 - Chronic combined systolic (congestive) and diastolic (congestive) heart failure Status: Chronic Assessment and Plan: Not in acute exacerbation. - Echo with bubble study 08/14: LVEF 30-35% and negative bubble study, EF 35-40% in 02/2023 - Continue home medications (7) Compression fracture: Status: Acute Assessment and Plan: Patient had a mechanical fall in July resulting in the burst fracture. - Abdomen/pelvis CT 08/13: Mild burst fracture at T12 with minimal 2 mm retropulsion, new since the prior examination of 03/21/2023. No significant paraspinal hematoma. - PT/OT Time Spent With Patient Time with patient: 25 - 35 minutes Subjective Date/time seen: 08/17/23 09:24 Interval history: 83-year-old female with past medical history of CVA 2021, seizures, hypothyroidism, CHF, and DM presented to the hospital today for evaluation of altered mental status, weakness, concerns for seizure. Call made to Neurology Dr. Painter at 0945 in regards to patients Keppra level and current dosage. Will recheck a Keppra level this afternoon and if it remains elevated decrease the dose to 250 mg BID. Patient is pleasant lying in bed with family at bedside. She remains AOx3 and has difficulty with aphasia during the assessment. However she follows commands and answers when able to appropriately. She continues to endorse abdominal pain. Abdominal CT showed gallbladder hydrops. Will obtain a RUQ US i
[2023-08-17 11:25] LABS: Hemoglobin A1C 7.5 % (<5.7)
[2023-08-17 11:40] LABS: Hemoglobin A1C 7.6 % (<5.7)
[2023-08-17 12:11] LABS: Glucose Point of Care 195 mg/dl (65-105)
[2023-08-17 17:11] LABS: Glucose Point of Care 157 mg/dl (65-105)
[2023-08-17 19:57] LABS: Glucose Point of Care 179 mg/dl (65-105)
[2023-08-17] MEDS: ATORVASTATIN 40 MG TABLET 80 MG PO (20:16)
[2023-08-17] MEDS: GABAPENTIN 100 MG CAPSULE PO (20:16)
[2023-08-17] MEDS: HYDROcodone/acetaminophen (*CRX) 5-325 MG TABLET 1 TAB PO (23:51)
[2023-08-18] MEDS: LEVOTHYROXINE SODIUM 75 MCG TABLET PO (05:17)
[2023-08-18 05:35] LABS: Basophils Absolute Auto 0.1 K/mm3 (0.0-0.1); Eosinophils Absolute Auto 0.4 K/mm3 (0-0.3); Eosinophils Percent Auto 5.2 % (0-4.4); Hematocrit 33.6 % (37.0-47.0); Hemoglobin 10.9 g/dL (12.0-15.0); Immature Granulocyte Absolute 0.03 K/mm3 (0.00-0.031); Immature Granulocyte Percent A 0.4 % (0-0.5); Lymphocytes Absolute Auto 1.73 K/mm3 (0.9-3.2); Lymphocytes Percent Auto 22.5 % (18.3-44.2); Mean Corpuscular HGB Conc 32.4 g/dl (32-36); Mean Corpuscular Hemoglobin 30.4 pg (26-34); Mean Corpuscular Volume 93.9 fl (80-100); Mean Platelet Volume 9.2 fl (7.4-10.4); Monocytes Absolute Auto 0.6 K/mm3 (0.1-0.6); Monocytes Percent Auto 8.3 % (2.6-8.5); Neutrophils Absolute Auto 4.8 K/mm3 (1.3-6.7); Neutrophils Percent Auto 62.6 % (45.5-73.1); Platelet Count Result 292 k/mm3 (150-375); Red Blood Count 3.58 M/mm3 (4.2-5.4); Red Cell Distribution Width 14.6 % (11.5-14.5); White Blood Count 7.7 K/mm3 (4.5-10.0)
[2023-08-18 06:00] VITALS: BP 123/50; PULSE 67; RESP 16; TEMP 36.8; O2SAT 94
[2023-08-18 06:12] LABS: Alanine Aminotransferase 20 U/L (6-35); Albumin Level 4.1 g/dL (3.5-5.1); Alkaline Phosphatase 154 U/L (38-126); Anion Gap 13 mmol/L (4-12); Aspartate Amino Transferase 25 U/L (14-36); Bilirubin,Total 0.5 mg/dL (0.2-1.3); Blood Urea Nitrogen 35 mg/dL (7-17); Calcium 9.4 mg/dL (8.4-10.2); Carbon Dioxide 24 mmol/L (22-30); Chloride 101 mmol/L (98-107); Estimated CRCL calculation 20 ml/min; Estimated Glomerular Filt Rate 24; Glucose 147 mg/dL (65-110); Potassium 4.7 mmol/L (3.4-5.0); Sodium 138 mmol/L (137-145)
[2023-08-18] MEDS: FLUTICASONE/SALMETEROL 115-21 MCG INHALER 1 PUFF 2 PUFF INHALATION ×2 (07:21→20:20)
--- NOTE | 2023-08-18 07:42 | PM.IMPN ---
Progress Note: A&P Assessment and Plan (1) CVA (cerebral vascular accident): Code(s): I63.9 - Cerebral infarction, unspecified Status: Acute Assessment and Plan: Patient presented for AMS, right sided weakness and aphasia. - Head CT 08/13: Subtle hypodensity in the left thalamus, may represent acute infarct. - Brain MRI 08/14: No acute infarct, acute intracranial hemorrhage, or mass lesion. Chronic left occipital lobe infarct. Moderate to advanced chronic microvascular ischemic changes and mild generalized atrophy. - Brain MRA 08/14: No occlusion, stenosis, or aneurysm. - Carotid Doppler 08/14: < 50 % stenosis of the right and left internal carotid arteries - Echo with bubble study 08/14: LVEF 30-35% and negative bubble study, EF 35-40% in 02/2023 - LFTs WNL - Cholesterol, triglycerides, LDL, HLD WNL - Neurochecks q4 hours - Consulted neurology Continue aspirin 81 mg daily Continue eliquis 2.5 mg BID Continue lipitor 80 mg daily (2) Gallbladder hydrops: Code(s): K82.1 - Hydrops of gallbladder Status: Acute Assessment and Plan: Patient no longer endorsing abdominal pain. - Abdomen/pelvis CT: Gallbladder hydrops, may be secondary to fasting or obstruction. Correlate with biliary labs. No gallstones or gallbladder inflammatory change present. - LFTs WNL - RUQ US: Normal limited abdominal ultrasound. - Monitor (3) Seizure: Code(s): R56.9 - Unspecified convulsions Status: Acute Assessment and Plan: Concern of possible absence seizure while at [facility] in swing bed. Patient has history of seizures and is taking Keppra and Lamictal. During exam 08/17 there was concern for possible absence seizure. Discussed with neuro and EEG ordered. - Keppra level 08/08: 67.2, will redraw level and adjust dosing accordingly. Spoke with neurology Dr. Painter, if level remains elevated will decrease dose to 250 mg BID. - Lamictal 100 mg BID - EEG ordered - Seizure precautions (4) Atrial fibrillation: Code(s): I48.91 - Unspecified atrial fibrillation Status: Acute Assessment and Plan: - EKG 08/13: Sinus rhythm with LBBB - Home medications: Eliquis 2.5 mg BID and metoprolol 25 mg daily - Continue home medications - Telemetry (5) IDDM (insulin dependent diabetes mellitus): Status: Acute Assessment and Plan: - hypoglycemia protocol - POC blood glucose ACHS - home medication - Jardiance, sliding scale insulin TIDWM, insulin glargine 34 units - correct regimen ordered - Jardiance, low dose TIDWM - A1C 7.6 (6) Chronic combined systolic and diastolic CHF (congestive heart failure): Code(s): I50.42 - Chronic combined systolic (congestive) and diastolic (congestive) heart failure Status: Chronic Assessment and Plan: Not in acute exacerbation. - Echo with bubble study 08/14: LVEF 30-35% and negative bubble study, EF 35-40% in 02/2023 - Continue home medications (7) Compression fracture: Status: Acute Assessment and Plan: Patient had a mechanical fall in July resulting in the burst fracture. - Abdomen/pelvis CT 08/13: Mild burst fracture at T12 with minimal 2 mm retropulsion, new since the prior examination of 03/21/2023. No significant paraspinal hematoma. - PT/OT Time Spent With Patient Time with patient: 25 - 35 minutes Subjective Date/time seen: 08/18/23 07:42 Interval history: 83-year-old female with past medical history of CVA 2021, seizures, hypothyroidism, CHF, and DM presented to the hospital today for evaluation of altered mental status, weakness, concerns for seizure. On arrival patient is pleasant lying in bed. She was AOx3, answering questions appropriately. She denied chest pain, shortness of breath, palpitations, nausea/vomiting. She stated that she was feeling good. During exam patient leaned forward for me to listen to her lung sounds when she slumped back and had increased confusion, not responding, following commands, and stari
[2023-08-18 08:18] LABS: Glucose Point of Care 147 mg/dl (65-105)
[2023-08-18 08:27] VITALS: PULSE 67
[2023-08-18] MEDS: EMPAGLIFLOZIN 10 MG TABLET PO (08:27)
[2023-08-18] MEDS: ASPIRIN 81 MG ENTERIC TABLET PO (08:27)
[2023-08-18] MEDS: CHOLECALCIFEROL 1,000 UNITS TABLET 1000 UNITS PO (08:27)
[2023-08-18] MEDS: THERAPEUTIC MULTIVITAMINS/MINERALS TAB (*BKC) 1 TABLET PO (08:27)
[2023-08-18] MEDS: lamoTRIgine 100 MG TABLET PO ×2 (08:27→20:42)
[2023-08-18] MEDS: VENLAFAXINE HCL XR 75 MG CAP.ER.24H PO (08:27)
[2023-08-18] MEDS: APIXABAN 2.5 MG TABLET PO ×2 (08:27→20:43)
[2023-08-18] MEDS: SACUBITRIL/VALSARTAN 24-26 MG TABLET 1 TAB PO ×2 (08:27→20:42)
[2023-08-18] MEDS: levETIRAcetam 500 MG TABLET PO ×2 (08:27→20:43)
[2023-08-18] MEDS: METOPROLOL SUCCINATE EXT REL 25 MG TABCR PO (08:27)
[2023-08-18] MEDS: MIRABEGRON 50 MG ER TABLET PO (08:27)
[2023-08-18] MEDS: MONTELUKAST SODIUM 10 MG TABLET PO (08:27)
--- NOTE | 2023-08-18 08:57 | WPDNEUROPN ---
Progress Note: A&P Assessment and Plan (1) Seizure-like activity: Code(s): R56.9 - Unspecified convulsions Status: Acute (2) History of stroke: Code(s): Z86.73 - Personal history of transient ischemic attack (TIA), and cerebral infarction without residual deficits Status: Acute Plan Nara Post is a 83 year old female with a history of diabetes, CKD, seizures, COPD, thyroid disease, atrial fibrillation on anticoagulation, cardiomyopathy presenting due to concerns for stroke -- (change in mentation, aphasia, R sided weakness). CT head showed hypodensity in L thalamus. MRI brain did not show any evidence of acute stroke, she has chronic infarct in L occipital region. Patient is already on anticoagulation and aspirin. Vessel imaging unrevealing, and shunt evaluation negative. She has had some unusual episodes during the admission. Not sure if these are seizures. With her renal disease I am hesitant to increase her Keppra or Lamictal. Routine EEG is pending. If she continues to have episodes we may do a trial of Depakote, but also consider transfer for video EEG monitoring. Patient knew the date today and where she is but was not able to tell me her last name, which is odd. There may be some level of cognitive issues at baseline. - Continue aspirin 81mg daily - Continue Eliquis 2.5mg BID - LDL is 59, which is at goal. Continue Lipitor 80mg - Continue Keppra 500mg BID -- dose adjusted for renal disease - Continue Lamictal 100mg BID - Routine EEG Subjective Date/time seen: 08/18/23 08:57 Interval history: Nara Post is a 83 year old female with a history of diabetes, CKD, seizures, COPD, thyroid disease, atrial fibrillation on anticoagulation, cardiomyopathy presenting due to concerns for stroke. Patient was residing in assisted living facility. During the admission, she had change in her mental status and staring episodes. Her Keppra level was checked which was supratherapeutic so her dose was decreased. She was discharged home on 08/11. She presented shortly after to ER in [place] on 08/13 for altered mental status, R sided weakness, and aphasia. Patient reportedly was able to ambulate with her walker until around 10AM on 08/14/23/ She was deemed not a TNK candidate due to her being on Eliquis. CT scan showed hypodensity in the L thalamus concerning for acute infarct. No vessel imaging was obtained. Patient is on aspirin 81mg daily, Lipitor 80mg daily, and Eliquis 2.5mg BID (presumably due to age > 80 and renal disease). Patient reports that her daughter sets up her medications for her on daily basis. Interval history: Nurse reported that patient had an episode where she had tremulousness of all four extremities but was able to talk through it. The hospitalist had an encounter with patient where she stared off briefly and was unresponsive. She receiving Keppra 500mg BID and Lamictal 100mg BID. Keppra level from 08/[address] head today which was unchanged from prior. Review of Systems Review of Systems: All systems reviewed & are unremarkable except as noted in HPI and below Exam Const: General: no acute distress and well nourished Nutritional Appearance: well nourished HENMT: Head: normocephalic and atraumatic Ears: hearing grossly normal bilaterally and external ears normal Face/Nose/Sinus: Normal external nose present and normal facial exam Eyes: General: appearance normal, both eyes and all related structures Eyelids: eyelids normal Conjunctivae: conjunctivae normal EOM: No Nystagmus present Other: R pupil 2mm and unreactive to light L pupil 4mm and unreactive to light (patient has had prior cataract surgery) Resp: Effort & Inspection: normal respiratory effort Skin: General skin exam: normal color and no rashes or lesions noted Neuro: Other: soft speech Strength is symmetric and age appropriate in bilateral upper extremities Strength is 3+/5 in bilateral lower
[2023-08-18 12:30] LABS: Glucose Point of Care 135 mg/dl (65-105)
[2023-08-18 14:00] VITALS: BP 121/52; PULSE 64; RESP 18; TEMP 36.5; O2SAT 98
[2023-08-18 17:08] LABS: Glucose Point of Care 183 mg/dl (65-105)
[2023-08-18 20:39] VITALS: BP 114/42; PULSE 68; RESP 16; TEMP 36; O2SAT 97
[2023-08-18] MEDS: ATORVASTATIN 40 MG TABLET 80 MG PO (20:43)
[2023-08-18] MEDS: GABAPENTIN 100 MG CAPSULE PO (20:43)
[2023-08-18 22:39] LABS: Glucose Point of Care 182 mg/dl (65-105)
[2023-08-19 04:59] LABS: Levetiracetam Keppra 23.3 mcg/mL (6.0-46.0)
[2023-08-19 05:52] LABS: Basophils Absolute Auto 0.1 K/mm3 (0.0-0.1); Basophils Percent Auto 1.3 % (0.2-1.2); Eosinophils Absolute Auto 0.4 K/mm3 (0-0.3); Eosinophils Percent Auto 6.1 % (0-4.4); Hematocrit 32.7 % (37.0-47.0); Hemoglobin 10.6 g/dL (12.0-15.0); Immature Granulocyte Absolute 0.03 K/mm3 (0.00-0.031); Immature Granulocyte Percent A 0.5 % (0-0.5); Lymphocytes Absolute Auto 1.53 K/mm3 (0.9-3.2); Lymphocytes Percent Auto 24.6 % (18.3-44.2); Mean Corpuscular HGB Conc 32.4 g/dl (32-36); Mean Corpuscular Volume 92.6 fl (80-100); Mean Platelet Volume 9.5 fl (7.4-10.4); Monocytes Absolute Auto 0.5 K/mm3 (0.1-0.6); Monocytes Percent Auto 8.7 % (2.6-8.5); Neutrophils Absolute Auto 3.7 K/mm3 (1.3-6.7); Neutrophils Percent Auto 58.8 % (45.5-73.1); Platelet Count Result 281 k/mm3 (150-375); Red Blood Count 3.53 M/mm3 (4.2-5.4); Red Cell Distribution Width 14.6 % (11.5-14.5); White Blood Count 6.2 K/mm3 (4.5-10.0)
[2023-08-19] MEDS: LEVOTHYROXINE SODIUM 75 MCG TABLET PO (05:57)
[2023-08-19 06:00] VITALS: BP 121/52; PULSE 66; RESP 16; TEMP 36.4; O2SAT 94
[2023-08-19 06:03] LABS: Alanine Aminotransferase 20 U/L (6-35); Alkaline Phosphatase 149 U/L (38-126); Anion Gap 11 mmol/L (4-12); Aspartate Amino Transferase 25 U/L (14-36); Bilirubin,Total 0.5 mg/dL (0.2-1.3); Blood Urea Nitrogen 41 mg/dL (7-17); Calcium 9.4 mg/dL (8.4-10.2); Carbon Dioxide 24 mmol/L (22-30); Chloride 104 mmol/L (98-107); Estimated CRCL calculation 20 ml/min; Estimated Glomerular Filt Rate 24; Glucose 143 mg/dL (65-110); Potassium 4.2 mmol/L (3.4-5.0); Sodium 139 mmol/L (137-145)
[2023-08-19 08:25] VITALS: PULSE 63
[2023-08-19] MEDS: METOPROLOL SUCCINATE EXT REL 25 MG TABCR PO (08:25)
[2023-08-19] MEDS: MONTELUKAST SODIUM 10 MG TABLET PO (08:26)
[2023-08-19] MEDS: ASPIRIN 81 MG ENTERIC TABLET PO (08:26)
[2023-08-19] MEDS: MIRABEGRON 50 MG ER TABLET PO (08:26)
[2023-08-19] MEDS: SACUBITRIL/VALSARTAN 24-26 MG TABLET 1 TAB PO (08:26)
[2023-08-19] MEDS: EMPAGLIFLOZIN 10 MG TABLET PO (08:26)
[2023-08-19] MEDS: CHOLECALCIFEROL 1,000 UNITS TABLET 1000 UNITS PO (08:26)
[2023-08-19] MEDS: APIXABAN 2.5 MG TABLET PO (08:26)
[2023-08-19] MEDS: THERAPEUTIC MULTIVITAMINS/MINERALS TAB (*BKC) 1 TABLET PO (08:26)
[2023-08-19] MEDS: lamoTRIgine 100 MG TABLET PO (08:26)
[2023-08-19] MEDS: VENLAFAXINE HCL XR 75 MG CAP.ER.24H PO (08:26)
[2023-08-19] MEDS: levETIRAcetam 500 MG TABLET PO (08:26)
[2023-08-19 08:33] LABS: Glucose Point of Care 133 mg/dl (65-105)
[2023-08-19] MEDS: FLUTICASONE/SALMETEROL 115-21 MCG INHALER 1 PUFF 2 PUFF INHALATION (08:34)
[2023-08-19] MEDS: HYDROcodone/acetaminophen (*CRX) 5-325 MG TABLET 1 TAB PO (08:55)
--- NOTE | 2023-08-19 09:04 | WPDNEUROPN ---
Progress Note: A&P Assessment and Plan (1) Seizure-like activity: Code(s): R56.9 - Unspecified convulsions Status: Acute (2) History of stroke: Code(s): Z86.73 - Personal history of transient ischemic attack (TIA), and cerebral infarction without residual deficits Status: Acute Plan Nara Post is a 83 year old female with a history of diabetes, CKD, seizures, COPD, thyroid disease, atrial fibrillation on anticoagulation, cardiomyopathy presenting due to concerns for stroke -- (change in mentation, aphasia, R sided weakness). CT head showed hypodensity in L thalamus. MRI brain did not show any evidence of acute stroke, she has chronic infarct in L occipital region. Patient is already on anticoagulation and aspirin. Vessel imaging unrevealing, and shunt evaluation negative. Routine EEG is normal. She has had some unusual episodes during the admission. Not sure if these are seizures. With her renal disease I am hesitant to increase her Keppra or Lamictal. If she continues to have episodes we may do a trial of Depakote. Patient seems to have some cognitive impairment at baseline. - Continue aspirin 81mg daily - Continue Eliquis 2.5mg BID - LDL is 59, which is at goal. Continue Lipitor 80mg - Continue Keppra 500mg BID -- dose adjusted for renal disease - Continue Lamictal 100mg BID - She will need to follow-up with her Neurologist as outpatient. Subjective Date/time seen: 08/19/23 09:04 Interval history: Nara Post is a 83 year old female with a history of diabetes, CKD, seizures, COPD, thyroid disease, atrial fibrillation on anticoagulation, cardiomyopathy presenting due to concerns for stroke. Patient was residing in assisted living facility. During the admission, she had change in her mental status and staring episodes. Her Keppra level was checked which was supratherapeutic so her dose was decreased. She was discharged home on 08/11. She presented shortly after to ER in [place] on 08/13 for altered mental status, R sided weakness, and aphasia. Patient reportedly was able to ambulate with her walker until around 10AM on 08/14/23/ She was deemed not a TNK candidate due to her being on Eliquis. CT scan showed hypodensity in the L thalamus concerning for acute infarct. No vessel imaging was obtained. Patient is on aspirin 81mg daily, Lipitor 80mg daily, and Eliquis 2.5mg BID (presumably due to age > 80 and renal disease). Patient reports that her daughter sets up her medications for her on daily basis. Interval history: Nurse on 08/17 reported that patient had an episode where she had tremulousness of all four extremities but was able to talk through it. The hospitalist had an encounter with patient where she stared off briefly and was unresponsive. She receiving Keppra 500mg BID and Lamictal 100mg BID. Keppra level from 08/08 was 62.7. Repeat level from 08/[address] head from 08/17 is unchanged from prior. Routine EEG from this morning is unremarkable. She has not had any additional episodes. Review of Systems Review of Systems: All systems reviewed & are unremarkable except as noted in HPI and below Exam Const: General: no acute distress and well nourished Nutritional Appearance: well nourished HENMT: Head: normocephalic and atraumatic Ears: hearing grossly normal bilaterally and external ears normal Face/Nose/Sinus: Normal external nose present and normal facial exam Eyes: General: appearance normal, both eyes and all related structures Eyelids: eyelids normal Conjunctivae: conjunctivae normal EOM: No Nystagmus present Other: R pupil 2mm and unreactive to light L pupil 4mm and unreactive to light (patient has had prior cataract surgery) Resp: Effort & Inspection: normal respiratory effort Skin: General skin exam: normal color and no rashes or lesions noted Neuro: Other: soft speech Strength is symmetric and age appropriate in bilateral upper extremities Strength is 3+/5 in
--- NOTE | 2023-08-19 10:37 | WPDNEUROLOGY ---
Neurology EEG Report General Information Date of Study: 08/18/23 TEST Routine EEG DIAGNOSIS Seizure- like activity CONDITION OF RECORDING Awake, drowsy, asleep EEG NUMBER [id number] CLINICAL HISTORY Patient presented with an episode of altered mental status, R sided weakness, and aphasia. EEG DESCRIPTION During the awake state with eyes closed the background consists of 8 Hz posterior dominant rhythm which attenuates appropriately with eye opening. The recording is continuous. There is a well developed anterior-posterior gradient. No significant asymmetries of background activities are noted. With drowsiness there is waxing and waning of the dominant rhythm with eventual replacement by a mixture of beta, alpha, and theta activity. As the patient enters stage II sleep, symmetrical spindles are present. Arousal is unremarkable. There are no epileptiform discharges or seizures during this recording. IMPRESSION This is a normal routine EEG recorded in awake and asleep states. There are no electrographic seizures identified, nor are there any epileptiform discharges. Please note that a normal EEG cannot exclude a seizure disorder. Clinical correlation is recommended.
[2023-08-19 11:59] LABS: Glucose Point of Care 207 mg/dl (65-105)
[2023-08-19] MEDS: INSULIN ASPART (*BKC) 100 UNITS/ML SUB-Q (12:18)
--- NOTE | 2023-08-19 13:22 | PM.DS ---
DS: Admitting Diagnosis Discharge Date 08/19/2023 Admitting Diagnosis CVA Gallbladder hydrops Seizure A fib insulin dependent diabetes chronic combined systolic and diastolic CHF compression fracture DS: Discharge Diagnosis Discharge Diagnosis (1) CVA (cerebral vascular accident): Code(s): I63.9 - Cerebral infarction, unspecified Status: Acute (2) Gallbladder hydrops: Code(s): K82.1 - Hydrops of gallbladder Status: Acute (3) Seizure: Code(s): R56.9 - Unspecified convulsions Status: Acute (4) Atrial fibrillation: Code(s): I48.91 - Unspecified atrial fibrillation Status: Acute (5) IDDM (insulin dependent diabetes mellitus): Status: Acute (6) Chronic combined systolic and diastolic CHF (congestive heart failure): Code(s): I50.42 - Chronic combined systolic (congestive) and diastolic (congestive) heart failure Status: Chronic (7) Compression fracture: Status: Acute DS: Summary Hospital Course Reason for hospitalization: CVA Gallbladder hydrops Seizure A fib insulin dependent diabetes chronic combined systolic and diastolic CHF compression fracture Hospital Course: 83-year-old female with past medical history of CVA 2021, seizures, hypothyroidism, CHF, and DM presented to the hospital today for evaluation of altered mental status, weakness, and concerns for seizure vs stroke. Patient was recently at [facility] program receiving therapy for compression fracture in her spine. Keppra level was checked at that point and was supratherapeutic resulting in dose was reduction. She was discharged back to her assisted living facility. She was found with altered level of consciousness, not following commands, aphasia with a GCS score 7. On admission patient had a head CT which revealed subtle hypodensity in the left thalamus, may represent acute infarct. Neurology was consulted at that time and patient was to continue her aspirin, eliquis, and lipitor as prescribed. Patients cholesterol, triglycerides, LDL, and HDL were all within normal limits. A carotid doppler showed < 50 % stenosis of the right and left internal carotid arteries. Echo with bubble study showed LVEF 30-35% and negative bubble study, EF 35-40% in 02/2023. Patient already on GDMT. Brain MRA showed no occlusion, stenosis, or aneurysm. Brain MRI showed No acute infarct, acute intracranial hemorrhage, or mass lesion. Chronic left occipital lobe infarct. Moderate to advanced chronic microvascular ischemic changes and mild generalized atrophy. Neurology continued to follow and no medication changes were made at that time. During admission a new keppra level was obtained and continued to be supratherapeutic. Discussed this with neurology and another level was drawn prior to dose adjustment as there was concern about break through seizures at the current dose. Repeat keppra level was within normal limits. An EEG was obtained and unremarkable. At discharge patient is to remain on her current keppra and lamictal doses. She is to follow up with her neurologist. During admission patient was complaining of RUQ pain. The abdomen/pelvis CT showed gallbladder hydrops, may be secondary to fasting or obstruction. A RUQ US was obtained and unremarkable. This pain resolved during admission. Patient worked with PT/OT during admission and was able to ambulate with walker and participate in ADLs. Patient will continue therapy with [facility] at her assisted living. Prior to discharge patient denied chest pain, shortness of breath, nausea/vomiting and changes in bowel/bladder. Patient discharged in stable condition to her assisted living with home health. She is to take her medications as prescribed and follow up with her PCP and neurology. Status at Discharge Functional status at discharge: uses cane/walker Time Spent with Patient Time attestation: Total time spent providing and/or coordinating discharge services:
[2023-08-29 17:28] LABS: Lamotrigine Lamictal 5.7 mcg/mL (2.5-15.0)
== END 2023-08-19 15:15 | DRG 65 ==
PROVIDERS: Nurse Practitioner; Nurse Practitioner Acute Care; Student in an Organized Health Care Education/Training Program; Admitting Provider Family Medicine; Visit Provider Student in an Organized Health Care Education/Training Program
DX: I63.9 Cerebral infarction, unspecified (principal); G81.91 Hemiplegia, unspecified affecting right dominant side; I42.9 Cardiomyopathy, unspecified; I50.42 Chronic combined systolic (congestive) and diastolic (congestive) heart failure; K82.1 Hydrops of gallbladder; I48.20 Chronic atrial fibrillation, unspecified; R47.01 Aphasia; R41.82 Altered mental status, unspecified; I11.0 Hypertensive heart disease with heart failure; R56.9 Unspecified convulsions; R29.705 NIHSS score 5; E11.42 Type 2 diabetes mellitus with diabetic polyneuropathy; E11.22 Type 2 diabetes mellitus with diabetic chronic kidney disease; N18.9 Chronic kidney disease, unspecified; E78.5 Hyperlipidemia, unspecified; E03.9 Hypothyroidism, unspecified; J44.9 Chronic obstructive pulmonary disease, unspecified; Z79.01 Long term (current) use of anticoagulants; Z86.711 Personal history of pulmonary embolism; Z96.1 Presence of intraocular lens; Z98.42 Cataract extraction status, left eye; Z98.41 Cataract extraction status, right eye
CPT/HCPCS: 36415; 70450; 70544; 70553; 76705; 80053; 80061; 80175; 80177; 82948; 83036; 83735; 85025; 92610; 93880; 94640; 95816; 96375; 97110; 97161; 97166; 97530; 97535; A9270; A9577; C8929; G0378; J1815; Q9957

== ENCOUNTER 2023-08-23 04:35 | Observation (INO) | payer MEDICARE, SELFPAY ==
[2023-08-23] VITALS (7 sets, daily range): BP systolic 113–138; BP diastolic 50–98; PULSE 66–98; RESP 16–20; TEMP 36.4–37.3; O2SAT 92–97; BMI 29.1
--- NOTE | ~2023-08-23 | CT_ITS ---
CT head without contrast Indication: Status post fall COMPARISON: 08/18/2023 Technique: Serial scans were obtained through the brain without the administration of contrast. Dose reduction technique was used on this scan by utilizing automated exposure control and iterative recon struction technique. The dose-length product (DLP) was 681.00 mGy-cm. Findings: There is no evidence of intracranial hemorrhage, mass lesion, or acute infarct. Chronic lef t occipital lobe infarct is unchanged. The ventricles and subarachnoid spaces are dilated, consistent with mild atrophy. Low attenuation regions are seen within the periventricular white matter bilater ally, likely representing changes from chronic microvascular ischemic disease. There is no evidence o f edema, mass effect or midline shift. Bilateral maxillary sinus disease noted. The remaining visual ized paranasal sinuses and mastoid air cells are clear. Minimal soft tissue swelling in the left fore head noted. Impression: No intracranial hemorrhage, mass, or acute infarct. Stable chronic left occipital lobe infarct. Atrophy and chronic white matter changes, as above. Minimal soft tissue swelling left forehead scalp. Reviewed, dictated and finalized at location . Impression: No intracranial hemorrhage, mass, or acute infarct. Stable chronic left occipital lobe infarct. Atrophy and chronic white matter changes, as above. Minimal soft tissue swelling left forehead scalp.
--- NOTE | ~2023-08-23 | CT_ITS ---
Noncontrast CT scan of the cervical spine Technique: Multiple contiguous axial [address] images of the cervical spine were obtained and rec onstructed in 2D sagittal and coronal planes on the acquisition scanner. Dose reduction technique was used on this scan by utilizing automated exposure control, adjustment of the mA and/or kV according to patient size. The dose-length product (DLP) was 519.60 mGy-cm. Clinical History: Pain Findings: There is mild compression deformity of C6, age-indeterminate. No other fracture or subluxat ion seen. There is mild reversal of the normal cervical lordosis. There is moderate to advanced degen erative disc narrowing at C5-C6. There is fusion of the right C3-C4 facet joint. There is right neura l foraminal narrowing at C3-C4 with prominent right C3-C4 facet arthropathy. No prevertebral soft tis luis swelling. Impression: Mild C6 compression deformity, age-indeterminate. Consider MR to evaluate for acute marrow edema. Degenerative spondylosis, as above. Reviewed, dictated and finalized at location . Impression: Mild C6 compression deformity, age-indeterminate. Consider MR to evaluate for a cute marrow edema. Degenerative spondylosis, as above.
--- NOTE | ~2023-08-23 | XR_ITS ---
Portable chest x-ray Comparison: 08/14/2023 Clinical History: Cough, Covid 19 positive Findings: Lungs are clear, without focal consolidation or pleural effusion. Cardiomediastinal silho uette is stable. Bones and soft tissues are unremarkable. Impression: Clear lungs. Reviewed, dictated and finalized at location . Impression: Clear lungs.
--- NOTE | 2023-08-23 04:48 | ED.FALL ---
HPI - Fall General Chief Complaint: Fall Stated Complaint: fall Time Seen by Provider: 08/23/23 04:46 Source: patient and family (daughter) Mode of arrival: EMS Limitations: no limitations History of Present Illness HPI Narrative: 83 year old female presents to the Emergency Department via EMS. Patient lives at Assisted Living with her spouse. He has Covid. Patient complains of weakness and fall striking head. complaint: fall Onset (ago): minute(s) Fall from: standing Place fall occurred: home Loss of consciousness: none Symptoms prior to fall: other (weakness) Context: history of frequent falls Location of injury: head Related Data Home Medications Medication Instructions Recorded Confirmed atorvastatin 80 mg tablet 80 mg PO HS 03/21/23 08/23/23 apixaban 2.5 mg tablet (Eliquis) 5 mg PO BID 07/29/23 08/23/23 polyethylene glycol 3350 17 gram 17 g PO QAM PRN Constipation 07/29/23 08/23/23 oral powder packet aspirin 81 mg tablet,delayed 81 mg PO DAILY 08/14/23 08/23/23 release empagliflozin 10 mg tablet 10 mg PO DAILY 08/14/23 08/23/23 fluticasone 250 mcg-salmeterol 50 1 inh inhalation Q12H PRN 08/14/23 08/23/23 mcg/dose blistr powdr for Shortness Of Breath inhalation (Advair Diskus) hydrocodone 5 mg-acetaminophen 325 1 tablet PO Q8H PRN Moderate Pain 08/14/23 08/23/23 mg tablet (Scale Score 5-6) insulin glargine 100 unit/mL 34 unit subcut QAM 08/14/23 08/23/23 subcutaneous solution insulin lispro 100 unit/mL 1 sliding scale dose subcut QHS 08/14/23 08/23/23 subcutaneous pen (Humalog KwikPen (U-100) Insulin) insulin lispro 100 unit/mL 1 sliding scale dose subcut TIDWM 08/14/23 08/23/23 subcutaneous pen (Humalog KwikPen (U-100) Insulin) levetiracetam 1,000 mg tablet 500 mg PO BID 08/14/23 08/23/23 (Keppra) metoprolol succinate 25 mg 25 mg PO DAILY 08/14/23 08/23/23 tablet,extended release 24 hr montelukast 10 mg tablet 10 mg PO QAM 08/14/23 08/23/23 multivitamin,tx-minerals 1 tablet PO DAILY 08/14/23 08/23/23 sacubitril 24 mg-valsartan 26 mg 1 tablet PO BID 08/14/23 08/23/23 tablet calcium carbonate 500 mg-vitamin 1 tablet PO DAILY 08/23/23 08/23/23 D3 10 mcg (400 unit) tablet (Calcium 500 + D) Allergies Allergy/AdvReac Type Severity Reaction Status Date / Time naproxen Allergy Unknown Verified 08/14/23 15:38 Review of Systems Review of Systems: All systems reviewed & are unremarkable except as noted in HPI and below Constitutional: Constitutional: Reports as per HPI, Denies chills, Denies fever(s) and Reports weakness Eyes: Eyes: Reports as per HPI and Denies change in vision ENT: Reports system reviewed and no additional complaints, except as documented Cardiovascular: Cardiovascular: Reports as per HPI and Denies chest pain Respiratory: Respiratory: Reports as per HPI and Denies dyspnea Gastrointestinal: Gastrointestinal: Reports as per HPI, Denies abdominal pain, Denies diarrhea, Denies nausea and Denies vomiting Genitourinary: Genitourinary: Reports no additional female genitourinary complaints Musculoskeletal: Musculoskeletal: Reports no additional musculoskeletal complaints Comments: weakness Neurologic: Reports system reviewed and no additional complaints, except as documented and Reports weakness Endocrine: Endocrine: Reports no additional endocrine complaints Hematologic/Lymphatic: Hematologic/Lymphatic: Reports no additional hematologic/lymphatic complaints Allergic/Immunologic: Allergic/Immunologic: Reports no additional allergic/immunologic complaints [facility] Past Medical History Medical History Ankle pain, right Chronic combined systolic and diastolic CHF (congestive heart failure) CVA (cerebral vascular accident) History of seizure Hyperlipidemia Hypertension Hypothyroidism Hypoxic Leukocytosis Peripheral neuropathy Pulmonary embolism Type 2 diabetes mellitus Vitamin D deficien
--- NOTE | 2023-08-23 04:51 | ECG_ITS ---
Test Date: 2023-08-23 05:13:55 Measurements Intervals [place] Rate: 91 P: 64 SC: 188 QRS: -30 QRSD: 158 T: 136 QT: 375 QTc: 464 Interpretive Statements SINUS RHYTHM LEFT BUNDLE BRANCH BLOCK BASELINE ARTIFACT- I, II, III, AVF ABNORMAL ECG Compared to ECG 08/14/2023 14:19:02 No significant changes Electronically Signed On 08-23-2023 06:40:29 CDT by Nelson Luna D.O.
--- NOTE | 2023-08-23 05:19 | PC.NURSE ---
pt placed on bed welch to try to get a urine specimen
[2023-08-23 05:26] LABS: Basophils Absolute Auto 0.07 K/mm3 (0.00-0.10); Eosinophils Absolute Auto 0.34 K/mm3 (0.02-0.50); Eosinophils Percent Auto 4.8 % (1.0-6.0); Hemoglobin 11.1 g/dL (11.7-13.8); Immature Granulocyte Absolute 0.03 K/mm3 (0.00-0.00); Immature Granulocyte Percent A 0.4 % (0.0-0.0); Lymphocytes Absolute Auto 0.82 K/mm3 (1.10-4.50); Lymphocytes Percent Auto 11.5 % (18.0-42.0); Mean Corpuscular HGB Conc 32.6 g/dL (32-36); Mean Corpuscular Hemoglobin 30.2 pg (27.0-31.0); Mean Corpuscular Volume 92.6 fL (78.0-102.0); Mean Platelet Volume 9.2 fl (9.2-11.8); Monocytes Absolute Auto 0.93 K/mm3 (0.10-0.90); Monocytes Percent Auto 13.1 % (2.0-11.0); Neutrophils Absolute Auto 4.92 K/mm3 (1.70-7.20); Neutrophils Percent Auto 69.2 % (50.0-70.0); Platelet Count Result 261 K/mm3 (150-420); Red Blood Count 3.67 M/mm3 (4.20-5.40); Red Cell Distribution Width 14.1 % (11.6-14.4); White Blood Count 7.1 K/mm3 (4.8-10.8)
[2023-08-23 05:44] LABS: Lactic Acid Reflex 0.9 mmol/L (0.4-2.0)
[2023-08-23 05:44] LABS: SARS-CoV-2 RNA PCR Positive (Negative)
[2023-08-23 05:45] LABS: Influenza A QL RT-PCR Negative (Negative); Influenza B QL RT-PCR Negative (Negative); RSV RNA, RT-PCR Negative (Negative)
[2023-08-23 05:56] LABS: Alanine Aminotransferase 22 U/L (14-59); Albumin Level 3.4 g/dL (3.4-5.0); Alkaline Phosphatase 154 U/L (46-116); Anion Gap 7 mmol/L (4-12); Aspartate Amino Transferase 21 U/L (15-37); Bilirubin,Total 0.4 mg/dL (0.00-1.00); Blood Urea Nitrogen 34 mg/dL (7-18); Calcium 9.1 mg/dL (8.5-10.1); Carbon Dioxide 25 mmol/L (21-32); Chloride 102 mmol/L (98-108); Estimated CRCL calculation 24 ml/min; Estimated Glomerular Filt Rate 28; Glucose 161 mg/dL (70-99); Osmolality Calculated 288 mOsm/kg (285-295); Potassium 4.1 mmol/L (3.5-5.1); Sodium 134 mmol/L (136-145); Total Protein 7.1 g/dL (6.4-8.2); Troponin I 13.1 ng/L (0.00-60.4)
[2023-08-23 06:29] LABS: Bilirubin Urine Negative (Negative); Blood Urine 3+ (Negative); Color Urine Light Yellow (Yellow); Glucose Urine UA 3+ (Negative); Ketones Urine Negative (Negative); Leukocyte Esterase Ur 2+ (Negative); Nitrate Urine Negative (Negative); Protein Urine Trace (Negative); Specific Grav Ur 1.025 (1.010-1.020); Urobilinogen Urine 0.2 mg/dL (0.2-1.0); pH Urine 5.5 (5.0-8.0)
[2023-08-23 06:33] LABS: Add Urine Microscopic? YES; Appearance Urine Sl Cloudy (Clear); Bacteria Urine 3+ /hpf
--- NOTE | 2023-08-23 06:40 | PC.NURSE ---
POC for admit discussed w/ pt and daughter. 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
[2023-08-23] MEDS: ACETAMINOPHEN 325 MG TABLET 650 MG PO ×2 (06:54→20:41)
[2023-08-23] MEDS: SODIUM CHLORIDE 0.9% IV 1,000 ML 75 ML IV CONT (06:57)
--- NOTE | 2023-08-23 07:04 | PC.NURSE ---
Call placed to floor, spoke w/ charge master specialist Jacinda and pt will go to Rm [id number]. Pt and daughter informed.
--- NOTE | 2023-08-23 07:20 | PC.NURSE ---
Patient arrived from ED on stretcher and was able to pivot transfer from stretcher to bed with assist. Patient admitted to room 203 on droplet precautions for Covid 19. Patient educated on isolation practices, use of call light and bed controls. Admission packet given. Patient also educated on general hospital policies and visiting hours. No personal belongings noted. Patient does not have her dentures or glasses.
--- NOTE | 2023-08-23 08:04 | PM.IMHP ---
H&P: HPI History of Present Illness Date/Time: 08/23/23 08:04 Chief Complaint: Fall Narrative: This is an 83-year-old female With a significant past medical history of chronic combined systolic and diastolic CHF, CVA, seizures, hyperlipidemia, hypertension, hypothyroidism, peripheral neuropathy, PE, type 2 diabetes mellitus who presented to the hospital for evaluation after a ground level fall. patient states that she fell asleep in her chair at home and when she woke up she decided to go to her bed and ended up falling and hitting her head. Her has COVID and she states that he gave it to her. She denies any fever, chills, lightheadedness, dizziness, blurred vision, double vision, headache, nausea, vomiting, diarrhea, abdominal pain, chest pain, shortness a breath. Patient was recently seen and treated at [facility] on 08/15/2023 through 08/19/2023. She presented there with altered mental status, weakness, concerns for seizure versus stroke. She was worked up for this and her head CT at that time revealed subtle hypodensity in the left thalamus, representing acute infarct. Neurology was consulted at that time and placed her on aspirin, Eliquis, and Lipitor. An MRI was also obtained which did not show any acute infarct or hemorrhage and showed a chronic left occipital lobe infarct with moderate to advanced chronic microvascular ischemic changes. She also had an EEG which was unremarkable. She was discharged home with [facility] at her assisted living. Workup in the hospital included a head CT which did not show any acute findings, chronic left occipital lobe infarct, age-related changes. Cervical spine CT showed mild C6 compression deformity and degenerative spondylosis. Chest x-ray was obtained and was negative. Initial labs showed a white blood cell count of 7.1, hemoglobin 11.1, sodium 134, creatinine 1.73, EGFR 28, blood glucose 161, alk-phos 154, troponin 13.1. A UA was obtained which shown a specific gravity of 1.025, trace urine protein, 3+ urine glucose, 3+ urine blood, 2+ urine leukocyte, 6-10 urine RBC, 7 and 9 urine WBC, bacteria 3+. Respiratory panel was obtained and was positive for COVID, negative for influenza a and B, RSV Patient was started on IV fluids and given a dose of Tylenol while in the ED. Review of Systems Review of Systems: All systems reviewed & are unremarkable except as noted in HPI and below Constitutional: Constitutional: Reports as per HPI and Reports no additional constitutional complaints Eyes: Eyes: Reports as per HPI and Reports no additional eye complaints ENT: Reports system reviewed and no additional complaints, except as documented and Reports as per HPI Cardiovascular: Cardiovascular: Reports as per HPI and Reports no additional cardiovascular complaints Respiratory: Respiratory: Reports as per HPI and Reports no additional respiratory complaints Gastrointestinal: Gastrointestinal: Reports as per HPI and Reports no additional gastrointestinal complaints Genitourinary: Genitourinary: Reports no additional female genitourinary complaints and Reports as per HPI Musculoskeletal: Musculoskeletal: Reports no additional musculoskeletal complaints and Reports as per HPI Integumentary/Breasts: Skin/Breast: Reports system reviewed and no additional complaints, except as docu and Reports as per HPI Neurologic: Reports system reviewed and no additional complaints, except as documented and Reports as per HPI Psychiatric: Psychiatric: Reports no additional psychiatric complaints and Reports as per HPI [facility] Past Medical History Medical History Ankle pain, right Chronic combined systolic and diastolic CHF (congestive heart failure) CVA (cerebral vascular accident) History of seizure Hyperlipidemia Hypertension Hypothyroidism Hypoxic Leukocytosis Peripheral neuropathy Pulmonary embolism Type 2 diabetes mellitus Jaycee
[2023-08-23] MEDS: CALCIUM/VITAMIN D 250 MG/3.125 MCG (125 I.U.) TABLET 1 TABLET PO (09:42)
[2023-08-23] MEDS: SACUBITRIL/VALSARTAN 24-26 MG TABLET 1 TAB PO ×2 (09:43→17:15)
[2023-08-23] MEDS: ASPIRIN 81 MG ENTERIC TABLET PO (09:43)
[2023-08-23] MEDS: CHOLECALCIFEROL 1,000 UNITS TABLET 1000 UNITS PO (09:43)
[2023-08-23] MEDS: levETIRAcetam 500 MG TABLET PO ×2 (09:43→17:15)
[2023-08-23] MEDS: THERAPEUTIC MULTIVITAMINS/MINERALS TAB (*BKC) 1 TABLET PO (09:44)
[2023-08-23] MEDS: VENLAFAXINE HCL XR 75 MG CAP.ER.24H PO (09:44)
[2023-08-23] MEDS: METOPROLOL SUCCINATE EXT REL 25 MG TABCR PO (09:44)
[2023-08-23] MEDS: SPIRONOLACTONE 25 MG TABLET PO (09:44)
[2023-08-23] MEDS: MONTELUKAST SODIUM 10 MG TABLET PO (09:44)
[2023-08-23] MEDS: EMPAGLIFLOZIN 10 MG TABLET PO (09:45)
[2023-08-23] MEDS: INSULIN GLARGINE (*BKC) 1,000 UNITS/10 ML VIAL 34 UNITS SUB-Q (09:49)
[2023-08-23 09:55] LABS: Glucose Point of Care 145 mg/dl (65-105)
[2023-08-23 11:49] LABS: Glucose Point of Care 259 mg/dl (65-105)
[2023-08-23] MEDS: INSULIN HUMAN LISPRO (*BKC) 1,000 UNITS/10 ML VIAL SUB-Q (11:54)
[2023-08-23 16:33] LABS: Glucose Point of Care 121 mg/dl (65-105)
[2023-08-23] MEDS: ATORVASTATIN 40 MG TABLET 80 MG PO (20:40)
[2023-08-23] MEDS: GABAPENTIN 100 MG CAPSULE PO (20:41)
[2023-08-23 21:08] LABS: Glucose Point of Care 187 mg/dl (65-105)
[2023-08-24] VITALS: BP 128/57; PULSE 80; RESP 16; TEMP 37.1; O2SAT 93
[2023-08-24] MEDS: LEVOTHYROXINE SODIUM 75 MCG TABLET PO (06:21)
[2023-08-24] MEDS: SODIUM CHLORIDE 0.9% IV 1,000 ML 75 ML IV CONT (06:24)
[2023-08-24 07:33] LABS: Glucose Point of Care 100 mg/dl (65-105)
[2023-08-24 08:00] VITALS: BP 116/67; PULSE 62; PULSE 85; RESP 18; RESP 20; TEMP 36.6; O2SAT 95; O2SAT 96
[2023-08-24] MEDS: SPIRONOLACTONE 25 MG TABLET PO (09:04)
[2023-08-24] MEDS: THERAPEUTIC MULTIVITAMINS/MINERALS TAB (*BKC) 1 TABLET PO (09:04)
[2023-08-24] MEDS: CHOLECALCIFEROL 1,000 UNITS TABLET 1000 UNITS PO (09:04)
[2023-08-24] MEDS: CALCIUM/VITAMIN D 250 MG/3.125 MCG (125 I.U.) TABLET 1 TABLET PO (09:04)
[2023-08-24 09:05] VITALS: PULSE 85
[2023-08-24] MEDS: MONTELUKAST SODIUM 10 MG TABLET PO (09:05)
[2023-08-24] MEDS: VENLAFAXINE HCL XR 75 MG CAP.ER.24H PO (09:05)
[2023-08-24] MEDS: METOPROLOL SUCCINATE EXT REL 25 MG TABCR PO (09:05)
[2023-08-24] MEDS: levETIRAcetam 500 MG TABLET PO ×2 (09:05→16:32)
[2023-08-24] MEDS: ASPIRIN 81 MG ENTERIC TABLET PO (09:06)
[2023-08-24] MEDS: SACUBITRIL/VALSARTAN 24-26 MG TABLET 1 TAB PO ×2 (09:07→16:32)
[2023-08-24] MEDS: EMPAGLIFLOZIN 10 MG TABLET PO (09:07)
[2023-08-24 09:36] LABS: Alanine Aminotransferase 27 U/L (14-59); Albumin Level 3.3 g/dL (3.4-5.0); Alkaline Phosphatase 149 U/L (46-116); Anion Gap 8 mmol/L (4-12); Aspartate Amino Transferase 32 U/L (15-37); Bilirubin,Total 0.3 mg/dL (0.00-1.00); Blood Urea Nitrogen 31 mg/dL (7-18); Calcium 8.6 mg/dL (8.5-10.1); Carbon Dioxide 25 mmol/L (21-32); Chloride 101 mmol/L (98-108); Estimated CRCL calculation 22 ml/min; Estimated Glomerular Filt Rate 28; Glucose 138 mg/dL (70-99); Osmolality Calculated 286 mOsm/kg (285-295); Potassium 4.4 mmol/L (3.5-5.1); Sodium 134 mmol/L (136-145)
[2023-08-24 11:23] LABS: Glucose Point of Care 145 mg/dl (65-105)
--- NOTE | 2023-08-24 13:54 | P.PNIM_ITS ---
Progress Note: A&P Assessment and Plan (1) COVID-19: Code(s): U07.1 - COVID-19 Status: Acute Assessment and Plan: COVID * Supportive care. * Monitor for COVID pneumonia, acute respiratory distress syndrome. * supplemental oxygen as needed to maintain 90% oxygen saturation has remained on RA * incentive spirometer while awake * guaifenesin scheduled for cough * gentle IV hydration keep patient dry (2) Acute UTI: Code(s): N39.0 - Urinary tract infection, site not specified Status: Acute Assessment and Plan: 08/23/23: * UA shown urine specific gravity of 1.025, trace urine protein, 3+ urine glucose, 3+ urine blood, 2+ urine leukocyte, 6-10 urine RBC, 79 urine WBC, 3+ bacteria. * Urine culture obtained in pending * will start Rocephin * patient has history of E coli which is pansensitive and last month had bacteremia with her E coli UTI (3) Fall: Code(s): W19.XXXA - Unspecified fall, initial encounter Status: Acute Assessment and Plan: 08/23/23: * ground level fall with with head injury * head CT was negative for any intracranial hemorrhage, mass or infarct, showed stable chronic left occipital lobe infarct, age-related changes, minimal soft tissue swelling on the left forehead scalp * cervical spine CT shown mild C6 compression deformity which is old as she has had that back in March of this year. * PT and OT ordered * Case coordination following for placement needs verses rehab needs verses back home at assisted living with home health * continue neuro checks * consider discontinuing Eliquis due to her multiple fall history (4) Traumatic hematoma of forehead: Code(s): S00.83XA - Contusion of other part of head, initial encounter Status: Acute Assessment and Plan: see above (5) Weakness: Code(s): R53.1 - Weakness Status: Acute Assessment and Plan: 08/23/23: * PT and OT ordered * Likely secondary to COVID infection (6) Chronic combined systolic and diastolic CHF (congestive heart failure): Code(s): I50.42 - Chronic combined systolic (congestive) and diastolic (congestive) heart failure Status: Chronic Assessment and Plan: 08/23/23: * last echo was reviewed from 08/15/2023 which shown moderately reduced LV systolic function with an estimated EF of 30-35%, RV function was normal in LV diastolic function was indeterminate. Echo from 02/18/2023 shown LV systolic function moderately reduced with an EF of 35-40% and grade 3 diastolic dysfunction, moderate pulmonary hypertension. * Patient currently on Jardiance, Entresto, spironolactone, and metoprolol (7) CVA (cerebral vascular accident): Code(s): I63.9 - Cerebral infarction, unspecified Status: Chronic Assessment and Plan: 08/23/23: * continue aspirin, atorvastatin * Discontinue Eliquis (8) Hypertension: Code(s): I10 - Essential (primary) hypertension Status: Chronic Assessment and Plan: 08/23/23: * blood pressures ranging 128/52 130/52 * continue Entresto (9) Atrial fibrillation: Code(s): I48.91 - Unspecified atrial fibrillation Status: Chronic Assessment and Plan: 08/23/23: * will hold Eliquis as she is had frequent falls in the past and came back with head injury. Will discuss with patient and family about discontinuation of this medication * continue metoprolol 25 mg daily * Plan
--- NOTE | 2023-08-24 13:54 | PM.IMPN ---
Progress Note: A&P Assessment and Plan (1) COVID-19: Code(s): U07.1 - COVID-19 Status: Acute Assessment and Plan: COVID Supportive care. Monitor for COVID pneumonia, acute respiratory distress syndrome. supplemental oxygen as needed to maintain 90% oxygen saturation has remained on RA incentive spirometer while awake guaifenesin scheduled for cough gentle IV hydration keep patient dry (2) Acute UTI: Code(s): N39.0 - Urinary tract infection, site not specified Status: Acute Assessment and Plan: 08/23/23: UA shown urine specific gravity of 1.025, trace urine protein, 3+ urine glucose, 3+ urine blood, 2+ urine leukocyte, 6-10 urine RBC, 79 urine WBC, 3+ bacteria. Urine culture obtained in pending will start Rocephin patient has history of E coli which is pansensitive and last month had bacteremia with her E coli UTI (3) Fall: Code(s): W19.XXXA - Unspecified fall, initial encounter Status: Acute Assessment and Plan: 08/23/23: ground level fall with with head injury head CT was negative for any intracranial hemorrhage, mass or infarct, showed stable chronic left occipital lobe infarct, age-related changes, minimal soft tissue swelling on the left forehead scalp cervical spine CT shown mild C6 compression deformity which is old as she has had that back in March of this year. PT and OT ordered Case coordination following for placement needs verses rehab needs verses back home at assisted living with home health continue neuro checks consider discontinuing Eliquis due to her multiple fall history (4) Traumatic hematoma of forehead: Code(s): S00.83XA - Contusion of other part of head, initial encounter Status: Acute Assessment and Plan: see above (5) Weakness: Code(s): R53.1 - Weakness Status: Acute Assessment and Plan: 08/23/23: PT and OT ordered Likely secondary to COVID infection (6) Chronic combined systolic and diastolic CHF (congestive heart failure): Code(s): I50.42 - Chronic combined systolic (congestive) and diastolic (congestive) heart failure Status: Chronic Assessment and Plan: 08/23/23: last echo was reviewed from 08/15/2023 which shown moderately reduced LV systolic function with an estimated EF of 30-35%, RV function was normal in LV diastolic function was indeterminate. Echo from 02/18/2023 shown LV systolic function moderately reduced with an EF of 35-40% and grade 3 diastolic dysfunction, moderate pulmonary hypertension. Patient currently on Jardiance, Entresto, spironolactone, and metoprolol (7) CVA (cerebral vascular accident): Code(s): I63.9 - Cerebral infarction, unspecified Status: Chronic Assessment and Plan: 08/23/23: continue aspirin, atorvastatin Discontinue Eliquis (8) Hypertension: Code(s): I10 - Essential (primary) hypertension Status: Chronic Assessment and Plan: 08/23/23: blood pressures ranging 128/52 130/52 continue Entresto (9) Atrial fibrillation: Code(s): I48.91 - Unspecified atrial fibrillation Status: Chronic Assessment and Plan: 08/23/23: will hold Eliquis as she is had frequent falls in the past and came back with head injury. 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
[2023-08-24 15:40] VITALS: BP 114/48; PULSE 66; RESP 16; TEMP 36.4; O2SAT 96
[2023-08-24 16:37] LABS: Glucose Point of Care 135 mg/dl (65-105)
[2023-08-24] MEDS: GABAPENTIN 100 MG CAPSULE PO (20:54)
[2023-08-24] MEDS: ATORVASTATIN 40 MG TABLET 80 MG PO (20:54)
[2023-08-24 21:04] LABS: Glucose Point of Care 163 mg/dl (65-105)
[2023-08-25] VITALS: BP 117/59; PULSE 66; RESP 15; TEMP 36.5; O2SAT 92
[2023-08-25] MEDS: ACETAMINOPHEN 325 MG TABLET 650 MG PO (02:00)
[2023-08-25 05:45] LABS: Alanine Aminotransferase 40 U/L (14-59); Albumin Level 3.1 g/dL (3.4-5.0); Alkaline Phosphatase 134 U/L (46-116); Anion Gap 10 mmol/L (4-12); Aspartate Amino Transferase 42 U/L (15-37); Bilirubin,Total 0.2 mg/dL (0.00-1.00); Blood Urea Nitrogen 33 mg/dL (7-18); Calcium 8.8 mg/dL (8.5-10.1); Carbon Dioxide 23 mmol/L (21-32); Chloride 100 mmol/L (98-108); Estimated CRCL calculation 23 ml/min; Estimated Glomerular Filt Rate 28; Glucose 104 mg/dL (70-99); Osmolality Calculated 283 mOsm/kg (285-295); Potassium 4.4 mmol/L (3.5-5.1); Sodium 133 mmol/L (136-145); Total Protein 6.7 g/dL (6.4-8.2)
[2023-08-25] MEDS: LEVOTHYROXINE SODIUM 75 MCG TABLET PO (07:13)
[2023-08-25 08:00] VITALS: BP 120/46; PULSE 66; RESP 17; TEMP 36.1; O2SAT 91
[2023-08-25 09:48] LABS: Toxigenic C. Diff NEGATIVE (NEGATIVE)
[2023-08-25 09:58] VITALS: PULSE 66
[2023-08-25] MEDS: levETIRAcetam 500 MG TABLET PO (09:58)
[2023-08-25] MEDS: SPIRONOLACTONE 25 MG TABLET PO (09:58)
[2023-08-25] MEDS: THERAPEUTIC MULTIVITAMINS/MINERALS TAB (*BKC) 1 TABLET PO (09:58)
[2023-08-25] MEDS: METOPROLOL SUCCINATE EXT REL 25 MG TABCR PO (09:58)
[2023-08-25] MEDS: SACUBITRIL/VALSARTAN 24-26 MG TABLET 1 TAB PO (09:58)
[2023-08-25] MEDS: VENLAFAXINE HCL XR 75 MG CAP.ER.24H PO (09:58)
[2023-08-25] MEDS: CALCIUM/VITAMIN D 250 MG/3.125 MCG (125 I.U.) TABLET 1 TABLET PO (09:58)
[2023-08-25] MEDS: ASPIRIN 81 MG ENTERIC TABLET PO (09:58)
[2023-08-25] MEDS: CHOLECALCIFEROL 1,000 UNITS TABLET 1000 UNITS PO (09:58)
[2023-08-25] MEDS: EMPAGLIFLOZIN 10 MG TABLET PO (09:59)
[2023-08-25] MEDS: MONTELUKAST SODIUM 10 MG TABLET PO (09:59)
[2023-08-25] MEDS: INSULIN GLARGINE (*BKC) 1,000 UNITS/10 ML VIAL 34 UNITS SUB-Q (10:00)
[2023-08-25] MEDS: LOPERAMIDE HCL 2 MG CAPSULE 4 MG PO (10:23)
--- NOTE | 2023-08-25 11:18 | PM.DS ---
DS: Admitting Diagnosis Discharge Date 08/25/2023 Admitting Diagnosis Fall UTI w ecole DS: Discharge Diagnosis Discharge Diagnosis (1) Hypothyroidism: Code(s): E03.9 - Hypothyroidism, unspecified Status: Chronic Assessment and Plan: continue home medication (2) COVID-19: Code(s): U07.1 - COVID-19 Status: Acute Assessment and Plan: treat symptoms Oxygen prn no indication for viral medication (3) Acute UTI: Code(s): N39.0 - Urinary tract infection, site not specified Status: Acute Assessment and Plan: Rocephin 3 dose indicated (4) Weakness: Code(s): R53.1 - Weakness Status: Acute Assessment and Plan: PT/OT DS: Summary Hospital Course Reason for hospitalization: Fall Contusion to head, Covid, Weakness Hospital Course: This is a 83 year old female that was admitted with Covid, Fall and UTI. Patient was started on IVF, IV antibiotic , PT/OT and some weakness. Patient has been eating although she does act slower than she normally is and slow to respond Patient pupils are active and reactive to light. Patient remains weak but is participating with therapy. She is on droplet isolation and at this time we will Swing patient and continue to treat her symptoms and monitor her labs and vital. Patient was found to have E coli in her urine in which Rocephin will take care of this. review of labs and she has hyponatremia, acute renal failure and stable anemia . PT and OT will evaluate and treat. Time Spent with Patient Time attestation: Total time spent providing and/or coordinating discharge services: Exam Narrative: General: In no acute distress, well nourished Head: atraumatic, no encephalopathy, bruising noted to mid forehead and bridge of nose Eyes: EOMI, pupils unequal, right pupil irregular shape, left pupil 2mm, sclera clear ENT: tacky mucous membranes, nasal passages clear Neck: supple, no JVD, no adenopathy, trachea midline Cardiac: Normal S1 and S2. RRR, No murmur, gallops or friction rubs, peripheral pulses intact. Respiratory: Lungs clear to auscultation, diminished in the bases, no adventitious lung sounds, currently on room air Gastrointestinal: soft, non-distended, non-tender, normoactive bowel sounds. : voiding without difficulty. Extremities: moves all extremities, no edema Skin: bruising noted to the mid forehead and bridge of nose Neuro: Alert and oriented x4, cranial nerves intact, no neuro deficits. Psych: normal mood, normal affect, interactive DS: Data Data Completed and Pending Labs on day of discharge: Labs from last 24 hours 08/25/23 08/25/23 08/24/23 07:54 05:10 20:58 Sodium 133 L Potassium 4.4 Chloride 100 Carbon Dioxide 23 Anion Gap 10 BUN 33 H Creatinine 1.72 H Estim Creat Clear Calc 23 Estimated GFR 28 L Glucose 104 H POC Capillary Glucose 163 H Calculated Osmolality 283 L Calcium 8.8 Total Bilirubin 0.2 AST 42 H ALT 40 Alkaline Phosphatase 134 H Total Protein 6.7 Albumin 3.1 L C. difficile (PCR) Negative 08/24/23 08/24/23 16:31 11:21 Sodium Potassium Chloride Carbon Dioxide Anion Gap BUN Creatinine Estim Creat Clear Calc Estimated GFR Glucose POC Capillary Glucose 135 H 145 H Calculated Osmolality Calcium Total Bilirubin AST ALT Alkaline Phosphatase Total Protein Albumin C. difficile (PCR) Discharge Plan Discharge Attending physician on discharge: Jl Briones Discharging Clinician: Ava Otoole Activity: june shower Diet: as tolerated Discharge Medications: New ceftriaxone 1 gram Recon Soln 1 g IV Q24H Qty: 2 0RF acetaminophen 325 mg Tablet 650 mg PO Q4H PRN (Reason: Mild Pain (1-3) Or Fever) Qty: 30 0RF insulin lispro [Humalog U-100 Insulin] 100 unit/mL Solution 2 - 5 unit subcut TIDWM Qty: 10 0RF Protocol: I
[2023-08-25 11:49] LABS: Glucose Point of Care 166 mg/dl (65-105)
--- NOTE | 2023-08-25 11:55 | PC.NURSE ---
Pt discharging and being readmitted as skilled swing bed.
== END 2023-08-25 11:56 | disposition swing bed (61) ==
LOC: CHSED 06:46 → CHS2ND 07:09
PROVIDERS: Nurse Practitioner Acute Care; Nurse Practitioner Family; Admitting Provider Internal Medicine; Emergency Provider Emergency Medicine; PCP Internal Medicine; Visit Provider Nurse Practitioner Family
DX: U07.1 COVID-19 (principal); S00.83XA Contusion of other part of head, initial encounter; N39.0 Urinary tract infection, site not specified; B96.20 Unspecified Escherichia coli [E. coli] as the cause of diseases classified elsewhere; R53.1 Weakness; N28.9 Disorder of kidney and ureter, unspecified; W01.0XXA Fall on same level from slipping, tripping and stumbling without subsequent striking against object, initial encounter; I13.0 Hypertensive heart and chronic kidney disease with heart failure and stage 1 through stage 4 chronic kidney disease, or unspecified chronic kidney disease; I50.42 Chronic combined systolic (congestive) and diastolic (congestive) heart failure; E11.22 Type 2 diabetes mellitus with diabetic chronic kidney disease; N18.30 Chronic kidney disease, stage 3 unspecified; E78.5 Hyperlipidemia, unspecified; M48.52XD Collapsed vertebra, not elsewhere classified, cervical region, subsequent encounter for fracture with routine healing; E11.42 Type 2 diabetes mellitus with diabetic polyneuropathy; E03.9 Hypothyroidism, unspecified; G40.909 Epilepsy, unspecified, not intractable, without status epilepticus; Z86.73 Personal history of transient ischemic attack (TIA), and cerebral infarction without residual deficits; Z86.711 Personal history of pulmonary embolism; Z79.01 Long term (current) use of anticoagulants; Z79.82 Long term (current) use of aspirin; Z79.84 Long term (current) use of oral hypoglycemic drugs; Z79.51 Long term (current) use of inhaled steroids; Z79.891 Long term (current) use of opiate analgesic; Z79.4 Long term (current) use of insulin; Z66 Do not resuscitate; I48.91 Unspecified atrial fibrillation
CPT/HCPCS: 36415; 70450; 71045; 72125; 80053; 81001; 82948; 83605; 84484; 85025; 87086; 87186; 87493; 87637; 93005; 96365; 97110; 97161; 97165; 97530; 97535; 99285; A9270; G0378; J0696; J1815; J7030

== ENCOUNTER 2023-08-25 11:57 | Inpatient (IN) | payer MEDICARE, SELFPAY ==
--- NOTE | 2023-08-25 12:28 | PC.NURSE ---
Patient transitioned from observation to skilled swing. No change in physical assessment from this am.
[2023-08-25 12:30] VITALS: BMI 29.1
--- NOTE | 2023-08-25 12:35 | ADMGEN ---
This patient, Nara Post, was admitted to 2nd Floor Room 203-2. Patient/family oriented to hospital policies and general routines including ID bracelet, bed and alarms, visiting hours, pain management, procedures, bathroom and other care routines, personal items, smoking policy, room service/diet, and visiting hours. Information on how to activate the Rapid Response Team has been discussed. Patient/Family are encouraged to report perceived risks to care and to ask questions if they do not understand what they are told or what they should do.
[2023-08-25 16:00] VITALS: BP 104/50; PULSE 64; RESP 17; TEMP 36.6; O2SAT 92
[2023-08-25 17:07] LABS: Glucose Point of Care 134 mg/dl (65-105)
[2023-08-25] MEDS: SACUBITRIL/VALSARTAN 24-26 MG TABLET 1 TAB PO (17:23)
[2023-08-25] MEDS: levETIRAcetam 500 MG TABLET PO (17:23)
[2023-08-25] MEDS: GABAPENTIN 100 MG CAPSULE PO (20:33)
[2023-08-25] MEDS: cefTRIAXone 1 GM/NS 50 ML BAG IVPB (20:33)
[2023-08-25] MEDS: ATORVASTATIN 40 MG TABLET 80 MG PO (20:33)
[2023-08-25 20:40] LABS: Glucose Point of Care 206 mg/dl (65-105)
[2023-08-26] VITALS: BP 106/44; PULSE 71; RESP 17; TEMP 36.4; O2SAT 92
[2023-08-26] MEDS: LEVOTHYROXINE SODIUM 75 MCG TABLET PO (05:50)
[2023-08-26 08:00] VITALS: BP 130/59; PULSE 67; RESP 17; TEMP 36.2; O2SAT 96
[2023-08-26 08:02] LABS: Glucose Point of Care 98 mg/dl (65-105)
[2023-08-26] MEDS: MIRABEGRON 25 MG ER TABLET 50 MG PO (09:31)
[2023-08-26] MEDS: VENLAFAXINE HCL XR 75 MG CAP.ER.24H PO (09:31)
[2023-08-26] MEDS: CHOLECALCIFEROL 1,000 UNITS TABLET 1000 UNITS PO (09:31)
[2023-08-26] MEDS: CALCIUM/VITAMIN D 250 MG/3.125 MCG (125 I.U.) TABLET 1 TABLET PO (09:32)
[2023-08-26 09:33] VITALS: PULSE 84
[2023-08-26] MEDS: SPIRONOLACTONE 25 MG TABLET PO (09:33)
[2023-08-26] MEDS: ASPIRIN 81 MG ENTERIC TABLET PO (09:33)
[2023-08-26] MEDS: SACUBITRIL/VALSARTAN 24-26 MG TABLET 1 TAB PO ×2 (09:33→17:21)
[2023-08-26] MEDS: levETIRAcetam 500 MG TABLET PO ×2 (09:33→17:21)
[2023-08-26] MEDS: METOPROLOL SUCCINATE EXT REL 25 MG TABCR PO (09:33)
[2023-08-26] MEDS: EMPAGLIFLOZIN 10 MG TABLET PO (09:33)
[2023-08-26] MEDS: MONTELUKAST SODIUM 10 MG TABLET PO (09:34)
[2023-08-26] MEDS: INSULIN GLARGINE (*BKC) 1,000 UNITS/10 ML VIAL 34 UNITS SUB-Q (09:38)
--- NOTE | 2023-08-26 10:51 | PM.IMHP ---
H&P: HPI History of Present Illness Date/Time: 08/26/23 10:51 Chief Complaint: Deconditioned Narrative: This is an 83-year-old female With a significant past medical history of chronic combined systolic and diastolic CHF, CVA, seizures, hyperlipidemia, hypertension, hypothyroidism, peripheral neuropathy, PE, type 2 diabetes mellitus who presented to the hospital for evaluation after a ground level fall. patient states that she fell asleep in her chair at home and when she woke up she decided to go to her bed and ended up falling and hitting her head. Patient was admitted to the medical unit after testing positive for COVID, falls and generalized weakness. She denied any fever, chills, lightheadedness, dizziness, blurred vision, double vision, headache, nausea, vomiting, diarrhea, abdominal pain, chest pain, shortness a breath. Patient was recently seen and treated at [facility] on 08/15/2023 through 08/19/2023. She presented there with altered mental status, weakness, concerns for seizure versus stroke. She was worked up for this and her head CT at that time revealed subtle hypodensity in the left thalamus, representing acute infarct. Neurology was consulted at that time and placed her on aspirin, Eliquis, and Lipitor. An MRI was also obtained which did not show any acute infarct or hemorrhage and showed a chronic left occipital lobe infarct with moderate to advanced chronic microvascular ischemic changes. She also had an EEG which was unremarkable. She was discharged home with residential home health at her assisted living. Respiratory panel was obtained and was positive for COVID, negative for influenza a and B, RSV. Patient had supportive care for COVID while hospitalized but was extremely weak and deconditioned unable to return to her assisted living and agreed to hospital swing bed for continued physical therapy and occupational therapy prior to returning to assisted living facility. Review of Systems Review of Systems: All systems reviewed & are unremarkable except as noted in HPI and below PMFSH Past Medical History Medical History (Updated 08/26/23 @ 10:59 by Ilana Curiel APRN) Ankle pain, right Chronic combined systolic and diastolic CHF (congestive heart failure) CVA (cerebral vascular accident) History of seizure Hyperlipidemia Hypertension Hypothyroidism Hypoxic Leukocytosis Peripheral neuropathy Pulmonary embolism Type 2 diabetes mellitus Vitamin D deficiency Surgical History Surgical History History of bilateral tubal ligation Status post cataract extraction of both eyes with insertion of intraocular lens Family History Family History Father Alcoholism Mother Breast cancer Ovarian cancer Social History Social History Social History: Patient lives at home with her of over 60 years. She stated that she briefly smoked for a couple of years when she was young. She denies any significant alcohol use. She ambulates with a Rollator. Code status: DNR/DNI (per patient request) Surrogate decision maker: Smoking status: Never smoker Second hand tobacco smoke exposure: No Alcohol intake: never Substance use: never Substance use type: does not use Do You Feel Safe in your Home?: Yes Lack of Transportation: No Lack of Food: Never True Current Housing: I Have Housing Concerned About Future Housing: No Difficulty Paying Gas/Electric Bills: No Difficulty Paying for Meds: No Currently Unemployed: No Education: High School Diploma/GED Difficulty w/ Childcare or Family Care: No Spiritual care concerns: No Meds Home Medications and Allergies Home Medications Medication Instructions Recorded Confirmed Type cholecalciferol (vitamin D3) 25 25 mcg PO DAILY
[2023-08-26] MEDS: HYDROcodone/acetaminophen (*CRX) 5-325 MG TABLET 1 TAB PO ×2 (10:55→20:24)
[2023-08-26 11:58] LABS: Glucose Point of Care 155 mg/dl (65-105)
[2023-08-26 16:00] VITALS: BP 108/49; PULSE 64; RESP 17; TEMP 36.6; O2SAT 97
[2023-08-26 17:18] LABS: Glucose Point of Care 166 mg/dl (65-105)
[2023-08-26 20:00] VITALS: PULSE 64; RESP 17; O2SAT 97
[2023-08-26] MEDS: ATORVASTATIN 40 MG TABLET 80 MG PO (20:24)
[2023-08-26] MEDS: AMOXICILLIN/CLAVULANATE K 875-125 MG TAB 1 TABLET PO (20:24)
[2023-08-26] MEDS: GABAPENTIN 100 MG CAPSULE PO (20:24)
[2023-08-26 20:34] LABS: Glucose Point of Care 237 mg/dl (65-105)
[2023-08-27] VITALS: BP 106/48; PULSE 57; RESP 16; TEMP 36.4; O2SAT 94
[2023-08-27] MEDS: LEVOTHYROXINE SODIUM 75 MCG TABLET PO (05:47)
--- NOTE | 2023-08-27 06:19 | PC.NURSE ---
Patient has not voided since 1899, she denies needing the restroom at this time, not incontinent.
[2023-08-27 08:00] VITALS: BP 108/40; PULSE 57; RESP 16; TEMP 35.8; O2SAT 93
[2023-08-27 08:28] LABS: Glucose Point of Care 116 mg/dl (65-105)
[2023-08-27 09:20] VITALS: PULSE 57
[2023-08-27] MEDS: VENLAFAXINE HCL XR 75 MG CAP.ER.24H PO (09:20)
[2023-08-27] MEDS: SPIRONOLACTONE 25 MG TABLET PO (09:20)
[2023-08-27] MEDS: METOPROLOL SUCCINATE EXT REL 25 MG TABCR PO (09:20)
[2023-08-27] MEDS: CALCIUM/VITAMIN D 250 MG/3.125 MCG (125 I.U.) TABLET 1 TABLET PO (09:20)
[2023-08-27] MEDS: AMOXICILLIN/CLAVULANATE K 875-125 MG TAB 1 TABLET PO ×2 (09:20→20:51)
[2023-08-27] MEDS: ASPIRIN 81 MG ENTERIC TABLET PO (09:20)
[2023-08-27] MEDS: EMPAGLIFLOZIN 10 MG TABLET PO (09:20)
[2023-08-27] MEDS: CHOLECALCIFEROL 1,000 UNITS TABLET 1000 UNITS PO (09:20)
[2023-08-27] MEDS: SACUBITRIL/VALSARTAN 24-26 MG TABLET 1 TAB PO ×2 (09:20→17:56)
[2023-08-27] MEDS: MIRABEGRON 25 MG ER TABLET 50 MG PO (09:20)
[2023-08-27] MEDS: levETIRAcetam 500 MG TABLET PO ×2 (09:20→17:56)
[2023-08-27] MEDS: MONTELUKAST SODIUM 10 MG TABLET PO (09:20)
[2023-08-27] MEDS: INSULIN GLARGINE (*BKC) 1,000 UNITS/10 ML VIAL 34 UNITS SUB-Q (09:21)
--- NOTE | 2023-08-27 12:16 | PC.NURSE ---
Pt unable to urinate. Pt unable to state when she last urinated. Bladder scan done. Resulted in >999ml. Pt then sat on the bsc and was onlly able to urinate 175 ml. WORKERS' COMPENSATION COMMISSIONER notified. Order received for urinary catheter.
[2023-08-27 12:20] LABS: Glucose Point of Care 172 mg/dl (65-105)
[2023-08-27] MEDS: HYDROcodone/acetaminophen (*CRX) 5-325 MG TABLET 1 TAB PO ×2 (14:02→20:51)
[2023-08-27 16:00] VITALS: BP 102/43; PULSE 60; RESP 18; TEMP 36.1; O2SAT 98
[2023-08-27 17:05] LABS: Glucose Point of Care 132 mg/dl (65-105)
[2023-08-27 20:00] VITALS: PULSE 60; RESP 18; O2SAT 98
[2023-08-27] MEDS: GABAPENTIN 100 MG CAPSULE PO (20:51)
[2023-08-27] MEDS: ATORVASTATIN 40 MG TABLET 80 MG PO (20:51)
[2023-08-27 20:58] LABS: Glucose Point of Care 131 mg/dl (65-105)
[2023-08-28] VITALS: BP 98/42; PULSE 58; RESP 16; TEMP 36.1; O2SAT 92
[2023-08-28] MEDS: LEVOTHYROXINE SODIUM 75 MCG TABLET PO (06:07)
[2023-08-28 08:00] VITALS: BP 100/48; PULSE 62; RESP 16; TEMP 35.7; O2SAT 99
[2023-08-28 08:07] LABS: Glucose Point of Care 85 mg/dl (65-105)
[2023-08-28] MEDS: levETIRAcetam 500 MG TABLET PO ×2 (08:31→17:09)
[2023-08-28] MEDS: MIRABEGRON 25 MG ER TABLET 50 MG PO (08:31)
[2023-08-28] MEDS: CHOLECALCIFEROL 1,000 UNITS TABLET 1000 UNITS PO (08:31)
[2023-08-28 08:32] VITALS: PULSE 60
[2023-08-28] MEDS: SACUBITRIL/VALSARTAN 24-26 MG TABLET 1 TAB PO ×2 (08:32→17:08)
[2023-08-28] MEDS: ASPIRIN 81 MG ENTERIC TABLET PO (08:32)
[2023-08-28] MEDS: HYDROcodone/acetaminophen (*CRX) 5-325 MG TABLET 1 TAB PO ×2 (08:32→20:28)
[2023-08-28] MEDS: CALCIUM/VITAMIN D 250 MG/3.125 MCG (125 I.U.) TABLET 1 TABLET PO (08:32)
[2023-08-28] MEDS: METOPROLOL SUCCINATE EXT REL 25 MG TABCR PO (08:32)
[2023-08-28] MEDS: AMOXICILLIN/CLAVULANATE K 875-125 MG TAB 1 TABLET PO ×2 (08:32→20:28)
[2023-08-28] MEDS: EMPAGLIFLOZIN 10 MG TABLET PO (08:33)
[2023-08-28] MEDS: SPIRONOLACTONE 25 MG TABLET PO (08:33)
[2023-08-28] MEDS: MONTELUKAST SODIUM 10 MG TABLET PO (08:33)
[2023-08-28] MEDS: VENLAFAXINE HCL XR 75 MG CAP.ER.24H PO (08:33)
[2023-08-28] MEDS: INSULIN GLARGINE (*BKC) 1,000 UNITS/10 ML VIAL 34 UNITS SUB-Q (09:36)
[2023-08-28 11:49] LABS: Glucose Point of Care 153 mg/dl (65-105)
[2023-08-28 16:00] VITALS: BP 100/49; PULSE 55; RESP 18; TEMP 35.7; O2SAT 94
[2023-08-28 16:54] LABS: Glucose Point of Care 159 mg/dl (65-105)
[2023-08-28 20:00] VITALS: PULSE 55; RESP 18; O2SAT 94
[2023-08-28] MEDS: GABAPENTIN 100 MG CAPSULE PO (20:27)
[2023-08-28] MEDS: ATORVASTATIN 40 MG TABLET 80 MG PO (20:28)
[2023-08-28 20:36] LABS: Glucose Point of Care 139 mg/dl (65-105)
[2023-08-29] VITALS: BP 121/47; PULSE 56; RESP 16; TEMP 36.3; O2SAT 98
[2023-08-29] MEDS: LEVOTHYROXINE SODIUM 75 MCG TABLET PO (05:45)
[2023-08-29 07:59] LABS: Glucose Point of Care 75 mg/dl (65-105)
[2023-08-29 08:00] VITALS: BP 106/54; PULSE 56; RESP 18; TEMP 35.7; O2SAT 96
[2023-08-29] MEDS: CALCIUM/VITAMIN D 250 MG/3.125 MCG (125 I.U.) TABLET 1 TABLET PO (09:34)
[2023-08-29] MEDS: MONTELUKAST SODIUM 10 MG TABLET PO (09:34)
[2023-08-29] MEDS: VENLAFAXINE HCL XR 75 MG CAP.ER.24H PO (09:34)
[2023-08-29] MEDS: CHOLECALCIFEROL 1,000 UNITS TABLET 1000 UNITS PO (09:34)
[2023-08-29] MEDS: AMOXICILLIN/CLAVULANATE K 875-125 MG TAB 1 TABLET PO ×2 (09:34→20:53)
[2023-08-29] MEDS: SACUBITRIL/VALSARTAN 24-26 MG TABLET 1 TAB PO ×2 (09:34→16:52)
[2023-08-29] MEDS: ASPIRIN 81 MG ENTERIC TABLET PO (09:34)
[2023-08-29] MEDS: SPIRONOLACTONE 25 MG TABLET PO (09:35)
[2023-08-29] MEDS: MIRABEGRON 25 MG ER TABLET 50 MG PO (09:35)
[2023-08-29] MEDS: EMPAGLIFLOZIN 10 MG TABLET PO (09:35)
[2023-08-29] MEDS: levETIRAcetam 500 MG TABLET PO ×2 (09:35→16:52)
[2023-08-29 09:36] VITALS: PULSE 56
[2023-08-29] MEDS: METOPROLOL SUCCINATE EXT REL 12.5 MG TABCR PO (09:36)
[2023-08-29] MEDS: INSULIN GLARGINE (*BKC) 1,000 UNITS/10 ML VIAL 34 UNITS SUB-Q (09:43)
[2023-08-29 11:57] LABS: Glucose Point of Care 202 mg/dl (65-105)
[2023-08-29 16:00] VITALS: BP 104/52; PULSE 58; RESP 18; TEMP 35.8; O2SAT 97
[2023-08-29 17:10] LABS: Glucose Point of Care 157 mg/dl (65-105)
[2023-08-29 19:49] LABS: Glucose Point of Care 144 mg/dl (65-105)
[2023-08-29 20:00] VITALS: PULSE 58; RESP 18; O2SAT 97
[2023-08-29] MEDS: GABAPENTIN 100 MG CAPSULE PO (20:41)
[2023-08-29] MEDS: ATORVASTATIN 40 MG TABLET 80 MG PO (20:41)
[2023-08-29] MEDS: HYDROcodone/acetaminophen (*CRX) 5-325 MG TABLET 1 TAB PO (20:42)
[2023-08-30] VITALS: BP 113/51; PULSE 58; RESP 16; TEMP 36.2; O2SAT 93
[2023-08-30] MEDS: LEVOTHYROXINE SODIUM 75 MCG TABLET PO (05:47)
[2023-08-30 08:00] VITALS: BP 110/55; PULSE 70; RESP 16; TEMP 36.6; O2SAT 94
[2023-08-30 08:19] LABS: Glucose Point of Care 93 mg/dl (65-105)
[2023-08-30 09:49] VITALS: PULSE 70
[2023-08-30] MEDS: MIRABEGRON 25 MG ER TABLET 50 MG PO (09:49)
[2023-08-30] MEDS: EMPAGLIFLOZIN 10 MG TABLET PO (09:49)
[2023-08-30] MEDS: VENLAFAXINE HCL XR 75 MG CAP.ER.24H PO (09:49)
[2023-08-30] MEDS: MONTELUKAST SODIUM 10 MG TABLET PO (09:49)
[2023-08-30] MEDS: AMOXICILLIN/CLAVULANATE K 875-125 MG TAB 1 TABLET PO ×2 (09:49→21:39)
[2023-08-30] MEDS: METOPROLOL SUCCINATE EXT REL 12.5 MG TABCR PO (09:49)
[2023-08-30] MEDS: CHOLECALCIFEROL 1,000 UNITS TABLET 1000 UNITS PO (09:49)
[2023-08-30] MEDS: SPIRONOLACTONE 25 MG TABLET PO (09:49)
[2023-08-30] MEDS: CALCIUM/VITAMIN D 250 MG/3.125 MCG (125 I.U.) TABLET 1 TABLET PO (09:49)
[2023-08-30] MEDS: levETIRAcetam 500 MG TABLET PO ×2 (09:49→17:47)
[2023-08-30] MEDS: ASPIRIN 81 MG ENTERIC TABLET PO (09:50)
[2023-08-30] MEDS: SACUBITRIL/VALSARTAN 24-26 MG TABLET 1 TAB PO ×2 (09:50→17:47)
[2023-08-30] MEDS: INSULIN GLARGINE (*BKC) 1,000 UNITS/10 ML VIAL 34 UNITS SUB-Q (09:50)
[2023-08-30 11:46] LABS: Glucose Point of Care 186 mg/dl (65-105)
--- NOTE | 2023-08-30 14:00 | PC.NURSE ---
Pt becoming more confused. Currently unaware of where she is and why. Patient relocated to room 206 for closer observation by staff.
[2023-08-30 16:00] VITALS: BP 104/60; PULSE 58; RESP 16; TEMP 36.1; O2SAT 97
[2023-08-30 17:12] LABS: Glucose Point of Care 100 mg/dl (65-105)
[2023-08-30] MEDS: HYDROcodone/acetaminophen (*CRX) 5-325 MG TABLET 1 TAB PO (21:39)
[2023-08-30] MEDS: ATORVASTATIN 40 MG TABLET 80 MG PO (21:39)
[2023-08-30] MEDS: GABAPENTIN 100 MG CAPSULE PO (21:40)
[2023-08-30 21:55] LABS: Glucose Point of Care 87 mg/dl (65-105)
[2023-08-30 23:41] VITALS: BP 123/57; PULSE 91; RESP 18; TEMP 36.1; O2SAT 95
[2023-08-31 05:16] LABS: Appearance Urine Clear (Clear); Bilirubin Urine Negative (Negative); Blood Urine 1+ (Negative); Color Urine Light Yellow (Yellow); Glucose Urine UA 3+ (Negative); Ketones Urine Negative (Negative); Leukocyte Esterase Ur Negative (Negative); Nitrate Urine Negative (Negative); Protein Urine Trace (Negative); Urobilinogen Urine 0.2 mg/dL (0.2-1.0)
[2023-08-31 05:34] LABS: Add Urine Microscopic? YES
[2023-08-31 05:35] LABS: Bacteria Urine Rare /hpf; Squamous Epithelial Cell Urine Rare /hpf (Few); WBC Urine None seen /hpf (0-3)
[2023-08-31] MEDS: LEVOTHYROXINE SODIUM 75 MCG TABLET PO (05:43)
[2023-08-31 08:00] VITALS: BP 118/55; PULSE 68; RESP 17; TEMP 36.6; O2SAT 98
[2023-08-31 08:05] LABS: Glucose Point of Care 55 mg/dl (65-105)
--- NOTE | 2023-08-31 09:56 | P.PNCROSS_ITS ---
Event Note Event Note Event Note: Mrs. Post is seen today sitting up in her chair is no acute distress. She has areas of ecchymosis to her face in various stages of healing. She denies dizziness, headache, shortness of breath, chest pain, abdominal pain, nausea, vomiting, diarrhea, or constipation. She has a fair appetite. She remains on isolation for COVID until 09/01. Plan is for her to discharge to a custodial given her frequent readmissions and generalized weakness. She denies any questions or concerns at this time.
[2023-08-31 10:15] VITALS: PULSE 70
[2023-08-31] MEDS: SACUBITRIL/VALSARTAN 24-26 MG TABLET 1 TAB PO ×2 (10:15→17:06)
[2023-08-31] MEDS: METOPROLOL SUCCINATE EXT REL 12.5 MG TABCR PO (10:15)
[2023-08-31] MEDS: AMOXICILLIN/CLAVULANATE K 875-125 MG TAB 1 TABLET PO (10:15)
[2023-08-31] MEDS: CHOLECALCIFEROL 1,000 UNITS TABLET 1000 UNITS PO (10:15)
[2023-08-31] MEDS: CALCIUM/VITAMIN D 250 MG/3.125 MCG (125 I.U.) TABLET 1 TABLET PO (10:16)
[2023-08-31] MEDS: levETIRAcetam 500 MG TABLET PO ×2 (10:16→17:06)
[2023-08-31] MEDS: ASPIRIN 81 MG ENTERIC TABLET PO (10:16)
[2023-08-31] MEDS: VENLAFAXINE HCL XR 75 MG CAP.ER.24H PO (10:16)
[2023-08-31] MEDS: EMPAGLIFLOZIN 10 MG TABLET PO (10:16)
[2023-08-31] MEDS: MONTELUKAST SODIUM 10 MG TABLET PO (10:16)
[2023-08-31] MEDS: MIRABEGRON 25 MG ER TABLET 50 MG PO (10:16)
[2023-08-31] MEDS: SPIRONOLACTONE 25 MG TABLET PO (10:16)
[2023-08-31] MEDS: INSULIN GLARGINE (*BKC) 1,000 UNITS/10 ML VIAL 26 UNITS SUB-Q (10:18)
--- NOTE | 2023-08-31 10:37 | PM.IMPN ---
Progress Note: A&P Assessment and Plan (1) Hypothyroidism: Code(s): E03.9 - Hypothyroidism, unspecified Status: Chronic (2) COVID-19: Code(s): U07.1 - COVID-19 Status: Acute (3) Acute UTI: Code(s): N39.0 - Urinary tract infection, site not specified Status: Acute (4) Weakness: Code(s): R53.1 - Weakness Status: Acute (5) Fall: Code(s): W19.XXXA - Unspecified fall, initial encounter Status: Acute (6) Traumatic hematoma of forehead: Code(s): S00.83XA - Contusion of other part of head, initial encounter Status: Acute (7) Unsteady gait: Code(s): R26.81 - Unsteadiness on feet Status: Acute (8) Type 2 diabetes mellitus: 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: with [facility] use Diabetes mellitus complication status: with kidney complications Diabetes mellitus complication detail: with chronic kidney disease Chronic kidney disease stage: stage 3 (moderate) Chronic kidney disease stage 3 subtype: unspecified whether 3a or 3b Qualified Code(s): E11.22 - Type 2 diabetes mellitus with diabetic chronic kidney disease; N18.30 - Chronic kidney disease, stage 3 unspecified; 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 HS sliding scale insulin resume patient's home long-acting. Decreased dose by 20% given am hypoglycemia. Encourage night time snack Diabetic diet Optimize Eddie inhibitors and statins. Watch for hypoglycemia/hypoglycemic protocol ordered HX CVA: D/C eliquis continued statin and ASA HX HTN: Stable resumed home medications HX CHF: Stable: resumed Entresto HX AFIB: D/C elquis resumed metoprolol for rate control HX hypothyroidism: Resume levothyroxine HX convulsions: Resume Keppra Code status: DNR DVT prophylaxis: SCDs Stress ulcer prophylaxis: NA PT/OT notes: Swing bed Disposition: Patient continues admission for swing bed for PT/OT due to generalized weakness. The plan is for her to discharge to a senior living as she has had too many readmissions as of late with multiple falls. Time Spent With Patient Time with patient: Greater than 35 minutes Subjective Date/time seen: 08/31/23 10:37 Interval history: Mrs. Post is seen today sitting up in her chair is no acute distress. She has areas of ecchymosis to her face in various stages of healing. She denies dizziness, headache, shortness of breath, chest pain, abdominal pain, nausea, vomiting, diarrhea, or constipation. She has a fair appetite. She remains on isolation for COVID until 09/01. Plan is for her to discharge to a senior living given her frequent readmissions and generalized weakness. She denies any questions or concerns at this time. Review of Systems Review of Systems: All systems reviewed & are unremarkable except as noted in HPI and below Exam Narrative: General: well appearing, frail, appears stated age. HEENT: normocephalic, areas of ecchymosis to bilateral orbits in various stages of healing, Mucous membranes moist. EOMI, PERRLA, bilateral sclera anicteric, no conjunctival injection. Neck supple without JVD, lymphadenopathy, or bruit. Respiratory: clear to auscultation bilaterally. No rales/rhonic/wheezes. Cardiovascular: Regular rate and rhythm, normal S1-S2 upon auscultation. No murmurs, rubs, or clicks. PMI is nondisplaced, capillary refill less than 3 second. Abdome
[2023-08-31 12:10] LABS: Glucose Point of Care 169 mg/dl (65-105)
[2023-08-31 16:00] VITALS: BP 124/68; PULSE 68; RESP 17; TEMP 36.6; O2SAT 97
[2023-08-31 17:04] LABS: Glucose Point of Care 153 mg/dl (65-105)
[2023-08-31] MEDS: HYDROcodone/acetaminophen (*CRX) 5-325 MG TABLET 1 TAB PO (17:05)
[2023-08-31] MEDS: GABAPENTIN 100 MG CAPSULE PO (20:34)
[2023-08-31] MEDS: ATORVASTATIN 40 MG TABLET 80 MG PO (20:35)
[2023-08-31 20:36] LABS: Glucose Point of Care 159 mg/dl (65-105)
[2023-09-01] VITALS: BP 109/53; PULSE 64; RESP 18; TEMP 36.1; O2SAT 94
[2023-09-01] MEDS: LEVOTHYROXINE SODIUM 75 MCG TABLET PO (05:33)
[2023-09-01] MEDS: HYDROcodone/acetaminophen (*CRX) 5-325 MG TABLET 1 TAB PO ×2 (05:40→20:50)
--- NOTE | 2023-09-01 05:51 | PC.NURSE ---
C/o groin and low ABD fold pain. Cleansed with personal hygiene wipes, dried and folded wash cloth applied. ABD does not feel distended, is not red. States feels some better. Remains grimacing and touching area. See MAR.
[2023-09-01 07:57] LABS: Glucose Point of Care 51 mg/dl (65-105)
[2023-09-01 08:00] VITALS: BP 119/57; PULSE 77; RESP 18; TEMP 35.5; O2SAT 97
[2023-09-01] MEDS: CHOLECALCIFEROL 1,000 UNITS TABLET 1000 UNITS PO (10:09)
[2023-09-01] MEDS: levETIRAcetam 500 MG TABLET PO ×2 (10:09→17:06)
[2023-09-01] MEDS: VENLAFAXINE HCL XR 75 MG CAP.ER.24H PO (10:09)
[2023-09-01 10:10] VITALS: PULSE 64
[2023-09-01] MEDS: EMPAGLIFLOZIN 10 MG TABLET PO (10:10)
[2023-09-01] MEDS: MONTELUKAST SODIUM 10 MG TABLET PO (10:10)
[2023-09-01] MEDS: METOPROLOL SUCCINATE EXT REL 12.5 MG TABCR PO (10:10)
[2023-09-01] MEDS: ASPIRIN 81 MG ENTERIC TABLET PO (10:10)
[2023-09-01] MEDS: MIRABEGRON 25 MG ER TABLET 50 MG PO (10:10)
[2023-09-01] MEDS: SACUBITRIL/VALSARTAN 24-26 MG TABLET 1 TAB PO ×2 (10:10→17:06)
[2023-09-01] MEDS: SPIRONOLACTONE 25 MG TABLET PO (10:10)
[2023-09-01] MEDS: CALCIUM/VITAMIN D 250 MG/3.125 MCG (125 I.U.) TABLET 1 TABLET PO (10:10)
[2023-09-01 11:44] LABS: Glucose Point of Care 176 mg/dl (65-105)
[2023-09-01 16:00] VITALS: BP 109/56; PULSE 69; RESP 16; TEMP 36.1; O2SAT 99
--- NOTE | 2023-09-01 16:40 | PC.NURSE ---
Patient able to void 150ml of clear yellow urine per commode. Post void bladder scan high result number 27ml. WILMAN Awad notified.
[2023-09-01 17:18] LABS: Glucose Point of Care 158 mg/dl (65-105)
[2023-09-01 20:00] VITALS: PULSE 69; RESP 16; O2SAT 99
[2023-09-01 20:05] LABS: Glucose Point of Care 195 mg/dl (65-105)
[2023-09-01] MEDS: INSULIN GLARGINE (*BKC) 1,000 UNITS/10 ML VIAL 22 UNITS SUB-Q (20:49)
[2023-09-01] MEDS: ATORVASTATIN 40 MG TABLET 80 MG PO (20:49)
[2023-09-01] MEDS: GABAPENTIN 100 MG CAPSULE PO (20:49)
[2023-09-02] VITALS: BP 129/45; PULSE 68; RESP 16; TEMP 36.4; O2SAT 94
[2023-09-02] MEDS: LEVOTHYROXINE SODIUM 75 MCG TABLET PO (05:25)
[2023-09-02 07:30] VITALS: BP 105/48; PULSE 61; RESP 18; TEMP 35.7; O2SAT 97
[2023-09-02 08:05] LABS: Glucose Point of Care 98 mg/dl (65-105)
--- NOTE | 2023-09-02 08:24 | PM.DS ---
DS: Admitting Diagnosis Discharge Date 09/01 Admitting Diagnosis fall, weakness DS: Discharge Diagnosis Discharge Diagnosis (1) Hypothyroidism: Code(s): E03.9 - Hypothyroidism, unspecified Status: Chronic (2) COVID-19: Code(s): U07.1 - COVID-19 Status: Acute (3) Acute UTI: Code(s): N39.0 - Urinary tract infection, site not specified Status: Acute (4) Weakness: Code(s): R53.1 - Weakness Status: Acute (5) Fall: Code(s): W19.XXXA - Unspecified fall, initial encounter Status: Acute (6) Traumatic hematoma of forehead: Code(s): S00.83XA - Contusion of other part of head, initial encounter Status: Acute (7) Unsteady gait: Code(s): R26.81 - Unsteadiness on feet Status: Acute (8) Type 2 diabetes mellitus: Qualifiers: Chronic kidney disease stage: stage 3 (moderate) Chronic kidney disease stage 3 subtype: unspecified whether 3a or 3b Diabetes mellitus complication detail: with chronic kidney disease Diabetes mellitus complication status: with kidney complications Diabetes mellitus group home insulin use: with group home use Qualified Code(s): E11.22 - Type 2 diabetes mellitus with diabetic chronic kidney disease; N18.30 - Chronic kidney disease, stage 3 unspecified; 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 HS sliding scale insulin resume patient's home long-acting. Decreased dose by 20% given am hypoglycemia. Encourage night time snack Diabetic diet Optimize Eddie inhibitors and statins. Watch for hypoglycemia/hypoglycemic protocol ordered HX CVA: D/C eliquis continued statin and ASA HX HTN: Stable resumed home medications HX CHF: Stable: resumed Entresto HX AFIB: D/C elquis resumed metoprolol for rate control HX hypothyroidism: Resume levothyroxine HX convulsions: Resume Keppra Code status: DNR DVT prophylaxis: SCDs Stress ulcer prophylaxis: NA PT/OT notes: Swing bed Disposition: Patient continues admission for swing bed for PT/OT due to generalized weakness. The plan is for her to discharge to a assisted as she has had too many readmissions as of late with multiple falls. DS: Summary Hospital Course Reason for hospitalization: weakness, deconditioning Hospital Course: This is a pleasant 83 year old female who presented initially after a fall at her assisted living. She was also found to have COVID but was asymptomatic. She was admitted for swing bed for deconditioning and weakness. She required a Meyer placement for retention. After a few days her meyer was removed and she completed a void trial. SHe did have a UTI as well for which she completed treatment with Rocephin and Augmentin. Her stay was uneventful and she was discharged to [facility] in stable condition. Time Spent with Patient Time attestation: Total time spent providing and/or coordinating discharge services:65 Exam Narrative: General: well appearing, frail, appears stated age. HEENT: normocephalic, areas of ecchymosis to bilateral orbits in various stages of healing, Mucous membranes moist. EOMI, PERRLA, bilateral sclera anicteric, no conjunctival injection. Neck supple without JVD, lymphadenopathy, or bruit. Respiratory: clear to auscultation bilaterally. No rales/rhonic/wheezes. Cardiovascular: Regular rate and rhythm, normal S1-S2 upon auscultation. N
[2023-09-02 08:30] VITALS: O2SAT 97
[2023-09-02 08:50] VITALS: PULSE 61
[2023-09-02] MEDS: MIRABEGRON 25 MG ER TABLET 50 MG PO (08:50)
[2023-09-02] MEDS: CALCIUM/VITAMIN D 250 MG/3.125 MCG (125 I.U.) TABLET 1 TABLET PO (08:50)
[2023-09-02] MEDS: METOPROLOL SUCCINATE EXT REL 12.5 MG TABCR PO (08:50)
[2023-09-02] MEDS: levETIRAcetam 500 MG TABLET PO (08:50)
[2023-09-02] MEDS: CHOLECALCIFEROL 1,000 UNITS TABLET 1000 UNITS PO (08:50)
[2023-09-02] MEDS: EMPAGLIFLOZIN 10 MG TABLET PO (08:50)
[2023-09-02] MEDS: SACUBITRIL/VALSARTAN 24-26 MG TABLET 1 TAB PO (08:50)
[2023-09-02] MEDS: ASPIRIN 81 MG ENTERIC TABLET PO (08:50)
[2023-09-02] MEDS: VENLAFAXINE HCL XR 75 MG CAP.ER.24H PO (08:50)
[2023-09-02] MEDS: SPIRONOLACTONE 25 MG TABLET PO (08:50)
[2023-09-02] MEDS: MONTELUKAST SODIUM 10 MG TABLET PO (08:50)
[2023-09-02 11:54] LABS: Glucose Point of Care 174 mg/dl (65-105)
--- NOTE | 2023-09-02 13:25 | PC.NURSE ---
Report called to dmitriy at [facility].
--- NOTE | 2023-09-02 13:30 | PC.NURSE ---
Patient discharging to [facility], Nurses aid here to transport patient to [facility]. All belongings gathered together and sent with patient. Patient transferred from chair to wheelchair with 1 assist and gait belt. No IV site at time of discharge. All discharge instructions and education sent in discharge packet with patient. Patient left floor via wheelchair accompanied by [facility] aid. Patient denies any questions at discharge.
--- NOTE | 2023-09-08 10:57 | PC.NURSE ---
No questions regarding [facility] instructions upon discharge
== END 2023-09-02 13:30 | DRG 947 ==
PROVIDERS: Nurse Practitioner Family; Admitting Provider Internal Medicine; PCP Internal Medicine; Visit Provider Nurse Practitioner Acute Care
DX: R53.1 Weakness (principal); U07.1 COVID-19; I13.0 Hypertensive heart and chronic kidney disease with heart failure and stage 1 through stage 4 chronic kidney disease, or unspecified chronic kidney disease; N39.0 Urinary tract infection, site not specified; I50.42 Chronic combined systolic (congestive) and diastolic (congestive) heart failure; N18.30 Chronic kidney disease, stage 3 unspecified; E11.22 Type 2 diabetes mellitus with diabetic chronic kidney disease; E11.42 Type 2 diabetes mellitus with diabetic polyneuropathy; E55.9 Vitamin D deficiency, unspecified; E03.9 Hypothyroidism, unspecified; E78.5 Hyperlipidemia, unspecified; R26.81 Unsteadiness on feet; G40.909 Epilepsy, unspecified, not intractable, without status epilepticus; S00.83XD Contusion of other part of head, subsequent encounter; W19.XXXD Unspecified fall, subsequent encounter; Z86.73 Personal history of transient ischemic attack (TIA), and cerebral infarction without residual deficits; Z86.711 Personal history of pulmonary embolism; Z79.82 Long term (current) use of aspirin; Z79.4 Long term (current) use of insulin
CPT/HCPCS: 81001; 82948; 97110; 97161; 97166; 97530; 97535; A9270; J0696; J1815

== ENCOUNTER 2023-09-10 17:17 | Emergency (ER) | payer MEDICARE, SELFPAY ==
--- NOTE | ~2023-09-10 | CT_ITS ---
EXAMINATION: CT brain wo con DATE: 09/10/2023 18:00 INDICATION: Confusion, syncope. Memory loss. Lack of coordination. Seizure. TECHNIQUE: Computed tomography (CT) of the head was performed without intravenous contrast. The mA wa s adjusted according to patient size. Iterative reconstruction technique was employed. Exam dose: 68 1.00 mGy-cm total exam DLP. COMPARISON: 08/23/2023 CT brain FINDINGS: Vertebrobasilar artery calcifications, especially left vertebral artery. Prominent bilatera l carotid siphon internal carotid artery calcifications. 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 There is nonspecific diminished attenuation of the cerebral white matter, likely due to chronic small vessel ischemic changes. Central and cortical cerebral and cerebellar atrophy. No subdural or epidural hematoma is detected. Complete opacification of the right maxillary sinus. Prominent lytic opacification of the left axilla sinus. There is posterior soft tissue thickening of the right sphenoid sinus. The remaining paranasa l sinuses and mastoid air cells are unremarkable. Probable old fracture of the medial wall of the right orbit. No fracture or bone destruction of the cranial vault. IMPRESSION: Cerebral osteoporosis and chronic small vessel ischemic changes of the cerebral white ma tter Chronic right basal ganglia lacunar infarct Old left occipital infarct Cerebral and cerebellar atrophy No skull fracture or acute intracranial finding Reviewed, dictated and finalized at Location A. Reviewed, dictated and finalized at location J. IMPRESSION: Cerebral osteoporosis and chronic small vessel ischemic changes of the cerebral white matter Chronic right basal ganglia lacunar infarct Old left occipital infarct Cerebral and cerebellar atrophy No skull fracture or acute intracranial finding
--- NOTE | ~2023-09-10 | XR_ITS ---
XR chest 1V portable DATE: 09/10/2023 18:00 INDICATION: Syncope. Confusion. TECHNIQUE: Portable AP chest on 09/10/2023 1803 hours COMPARISON: 08/23/2023 portable AP chest FINDINGS: Heart size is within normal range. There is aortic arch calcification, mild aortic unfoldin g. No hilar or mediastinal enlargement. Chronic mild blunting of left posterior neck angle. No pulmonary infiltrate or consolidation, pleural effusion or pulmonary vascular congestion or pneumothorax is detected. Old fracture deformity of the right surgical humeral neck. Degenerative spurring of the thoracic spine. Osteopenia. IMPRESSION: No active cardiopulmonary disease Aortic atherosclerosis Old fracture deformity of the right humeral surgical neck Reviewed, dictated and finalized at location J.
--- NOTE | 2023-09-10 17:25 | ED.AMS ---
HPI - Altered Mental Status General Chief Complaint: Altered Mental Status Stated Complaint: AMS Source: EMS Mode of arrival: wheelchair Limitations: no limitations History of Present Illness HPI narrative: 83-year-old female with a history of hypertension, diabetes , hypothyroidism, CAD/atrial fibrillation /CHF systolic and diastolic with an EF of 30-30%, CVA/ TIAs, seizure disorder, P, recent COVID, gait instability was admitted from 08/14 to 09/02/2023 for a fall with head injury, UTI and COVID. the Eliquis was discontinued. The [place] was brought in from [place] with complaints of -- altered mental status. patient has fluctuations in her mental status. intermittently the patient would close her eyes and bend her head forwards. Noted by grand kids who were with. One of them informed nurse on duty who had the patient transferred to ED for further evaluation. no chest pain or shortness of breath no nausea/ vomiting /abdominal pain or diarrhea blood sugar was noted to be 158. MD complaint: altered mental status and confusion Onset (ago): hour(s) ( 2 hours ago) Timing confirmed by: family member Severity: mild Context: history of similar presentation and seizure disorder Associated symptoms: denies other symptoms Related Data Home Medications Medication Instructions Recorded Confirmed atorvastatin 80 mg tablet 80 mg PO HS 03/21/23 09/10/23 polyethylene glycol 3350 17 gram 17 g PO QAM PRN Constipation 07/29/23 09/10/23 oral powder packet aspirin 81 mg tablet,delayed 81 mg PO DAILY 08/14/23 09/10/23 release empagliflozin 10 mg tablet 10 mg PO DAILY 08/14/23 09/10/23 fluticasone 250 mcg-salmeterol 50 1 inh inhalation Q12H PRN 08/14/23 09/10/23 mcg/dose blistr powdr for Shortness Of Breath inhalation (Advair Diskus) insulin glargine 100 unit/mL 34 unit subcut QAM 08/14/23 09/10/23 subcutaneous solution insulin lispro 100 unit/mL 1 sliding scale dose subcut TIDWM 08/14/23 09/10/23 subcutaneous pen (Humalog KwikPen (U-100) Insulin) levetiracetam 1,000 mg tablet 500 mg PO BID 08/14/23 09/10/23 (Keppra) metoprolol succinate 25 mg 25 mg PO DAILY 08/14/23 09/10/23 tablet,extended release 24 hr montelukast 10 mg tablet 10 mg PO QAM 08/14/23 09/10/23 multivitamin,tx-minerals 1 tablet PO DAILY 08/14/23 09/10/23 sacubitril 24 mg-valsartan 26 mg 1 tablet PO BID 08/14/23 09/10/23 tablet calcium carbonate 500 mg-vitamin 1 tablet PO DAILY 08/23/23 09/10/23 D3 10 mcg (400 unit) tablet (Calcium 500 + D) Allergies Allergy/AdvReac Type Severity Reaction Status Date / Time naproxen Allergy Unknown Verified 09/10/23 17:47 Review of Systems Review of Systems: All systems reviewed & are unremarkable except as noted in HPI and below Constitutional: Constitutional: Reports as per HPI and Reports no additional constitutional complaints Eyes: Eyes: Reports as per HPI ENT: Reports system reviewed and no additional complaints, except as documented Cardiovascular: Cardiovascular: Reports as per HPI and Reports no additional cardiovascular complaints Respiratory: Respiratory: Reports as per HPI and Reports no additional respiratory complaints Gastrointestinal: Gastrointestinal: Reports as per HPI and Reports no additional gastrointestinal complaints Genitourinary: Genitourinary: Reports no additional female genitourinary complaints Musculoskeletal: Musculoskeletal: Reports no additional musculoskeletal complaints and Reports as per HPI Integumentary/Breasts: Skin/Breast: Reports system reviewed and no additional complaints, except as docu and Reports as per HPI Neurologic: Reports system reviewed and no additional complaints, except as documented, Reports as per HPI and Reports confusion Comments: No obvious focal deficits noted Psychiatric: Psychiatric: Reports no additional psychiatric complaints and Reports as per HPI Endocrine: Endocrine: Reports no additional endocrine complaints and Report
[2023-09-10 17:30] VITALS: BP 120/53; PULSE 63; RESP 28; TEMP 36.5; O2SAT 100
--- NOTE | 2023-09-10 17:39 | ECG_ITS ---
Test Date: 2023-09-10 18:11:12 Measurements Intervals [place] Rate: 56 P: 44 AL: 203 QRS: -37 QRSD: 154 T: 139 QT: 458 QTc: 445 Interpretive Statements BASELINE ARTIFACT/ NOISE REDUCED ECG QUALITY SINUS BRADYCARDIA LEFT AXIS DEVIATION [QRS AXIS < -30] LEFT BUNDLE BRANCH BLOCK [120+ ms QRS DURATION, 80+ ms Q/S IN V1/V2, 85+ ms R IN I/aVL/V5/V6] ABNORMAL ECG Compared to ECG 08/23/2023 05:13:55 HEART RATE IS REDUCED NO OTHER OBVIOUS DIFFERENT Electronically Signed On 09-11-2023 09:13:00 CDT by Davion Mckinnon M.D.
--- NOTE | 2023-09-10 18:43 | PC.NURSE ---
from lab states blood work clotted, need to re-draw
--- NOTE | 2023-09-10 19:00 | PC.NURSE ---
assumed care. report received from Sarah CAI. patient is resting on stretcher with family at her side.
[2023-09-10 19:04] LABS: Base Excess ABG -0.3 mmol/L (0-2); HCO3 ABG 20.6 mmol/L (23-29); Oxygen Content ABG 16.5 %vol (16.0-22.0); Oxygen Saturation ABG 96.8 % (95-97); Oxyhemoglobin 96.4 % (94-100); PCO2 ABG 23.9 mmHg (35-45); pH ABG 7.55 (7.35-7.45)
[2023-09-10 19:12] LABS: Device ROOM AIR; Modified Allen's Test Pass; Site Drawn RIGHT RADIAL
[2023-09-10 19:15] LABS: Basophils Absolute Auto 0.08 K/mm3 (0.00-0.10); Basophils Percent Auto 1.2 % (0.0-1.0); Eosinophils Absolute Auto 0.29 K/mm3 (0.02-0.50); Eosinophils Percent Auto 4.2 % (1.0-6.0); Hematocrit 36.1 % (35.0-42.0); Immature Granulocyte Absolute 0.04 K/mm3 (0.00-0.00); Immature Granulocyte Percent A 0.6 % (0.0-0.0); Lymphocytes Absolute Auto 1.87 K/mm3 (1.10-4.50); Lymphocytes Percent Auto 27.2 % (18.0-42.0); Mean Corpuscular HGB Conc 30.5 g/dL (32-36); Mean Corpuscular Hemoglobin 28.6 pg (27.0-31.0); Mean Platelet Volume 9.4 fl (9.2-11.8); Monocytes Absolute Auto 0.68 K/mm3 (0.10-0.90); Monocytes Percent Auto 9.9 % (2.0-11.0); Neutrophils Absolute Auto 3.91 K/mm3 (1.70-7.20); Neutrophils Percent Auto 56.9 % (50.0-70.0); Platelet Count Result 329 K/mm3 (150-420); Red Blood Count 3.84 M/mm3 (4.20-5.40); Red Cell Distribution Width 13.3 % (11.6-14.4); White Blood Count 6.9 K/mm3 (4.8-10.8)
[2023-09-10 19:18] LABS: Add Urine Microscopic? YES; Bilirubin Urine Negative (Negative); Blood Urine 3+ (Negative); Color Urine Light Yellow (Yellow); Glucose Urine UA 3+ (Negative); Ketones Urine Negative (Negative); Leukocyte Esterase Ur 1+ LEU/UL (Negative); Nitrate Urine Positive (Negative); Protein Urine Negative (Negative); Specific Grav Ur 1.015 (1.010-1.020); Urobilinogen Urine 0.2 mg/dL (0.2-1.0)
[2023-09-10 19:25] LABS: Amorphous Sediment Urine Few; Appearance Urine Cloudy (Clear); Bacteria Urine 2+ /hpf; RBC Urine 21-50 /hpf (0-2); WBC Clumps Urine Present /hpf
[2023-09-10 19:28] LABS: Lactic Acid Reflex 2.2 mmol/L (0.4-2.0)
[2023-09-10 19:29] LABS: Alanine Aminotransferase 67 U/L (14-59); Albumin Level 2.9 g/dL (3.4-5.0); Alkaline Phosphatase 142 U/L (46-116); Bilirubin,Total 0.4 mg/dL (0.00-1.00); Blood Urea Nitrogen 30 mg/dL (7-18); Carbon Dioxide 23 mmol/L (21-32); Estimated CRCL calculation 24 ml/min; Estimated Glomerular Filt Rate 32; Glucose 116 mg/dL (70-99); Lipase 28 U/L (16-77); NT Pro B Type Natriuretic Pept 1002 pg/mL (0-450); Thyroid Stimulating Hormone 0.75 uIU/mL (0.36-3.74); Troponin I 11.7 ng/L (0.00-60.4)
[2023-09-10 19:32] VITALS: PULSE 57; RESP 16; O2SAT 95
--- NOTE | 2023-09-10 19:36 | PC.NURSE ---
patient requested water to drink. Dr Marrero said it was ok to give ice chips. done.
[2023-09-10 19:40] LABS: Anion Gap 10 mmol/L (4-12); Aspartate Amino Transferase 52 U/L (15-37); Chloride 105 mmol/L (98-108); Osmolality Calculated 293 mOsm/kg (285-295); Potassium 4.8 mmol/L (3.5-5.1); Sodium 138 mmol/L (136-145); Total Protein 6.9 g/dL (6.4-8.2)
[2023-09-10 19:51] VITALS: BP 139/46; PULSE 70; RESP 16; O2SAT 94
--- NOTE | 2023-09-10 19:52 | PC.NURSE ---
patient is resting on stretcher. states she is ready to go home. er provider will be speaking with family. call light is in reach. patient denies any other needs.
[2023-09-10] MEDS: CIPROFLOXACIN 250 MG TABLET PO (20:08)
--- NOTE | 2023-09-10 20:11 | PC.NURSE ---
patient took cipro without difficulty. daughter at the bedside. calling [facility] to give report
--- NOTE | 2023-09-10 20:14 | PC.NURSE ---
report given to nurse Gtz at [facility]. they will send someone over with a wheelchair to take her back
--- NOTE | 2023-09-10 20:22 | PC.NURSE ---
prescription pad x [address] meehan to write hand written prescription for the snf
--- NOTE | 2023-09-13 14:11 | PC.NURSE ---
PRELIMINARY URINE CULTURE RESULTS: GREATER THAN 100,000CFU/ML OF GRAM NEGATIVE BACILLI ISOLATED. TO AWAIT C&S PER DR MALIK
--- NOTE | 2023-09-14 17:01 | PC.NURSE ---
FINAL URINE CULTURE RESULTS: ISOLATE !: GREATER THAN 100,000 CFU/ML OF PSEUDOMONAS AERUGINOSA. PER DR FAYE AND C&S, NO CHANGE IN TX NEEDED.
== END 2023-09-10 20:26 ==
PROVIDERS: Emergency Provider Internal Medicine Critical Care Medicine; PCP Internal Medicine
DX: R41.82 Altered mental status, unspecified (principal); I13.0 Hypertensive heart and chronic kidney disease with heart failure and stage 1 through stage 4 chronic kidney disease, or unspecified chronic kidney disease; I50.9 Heart failure, unspecified; N18.32 Chronic kidney disease, stage 3b; E11.22 Type 2 diabetes mellitus with diabetic chronic kidney disease; N30.00 Acute cystitis without hematuria; E03.9 Hypothyroidism, unspecified; I25.10 Atherosclerotic heart disease of native coronary artery without angina pectoris; I48.91 Unspecified atrial fibrillation; Z86.73 Personal history of transient ischemic attack (TIA), and cerebral infarction without residual deficits; Z79.899 Other long term (current) drug therapy; Z79.4 Long term (current) use of insulin
CPT/HCPCS: 36415; 36600; 70450; 71045; 80053; 81001; 82805; 83605; 83690; 83880; 84443; 84484; 85025; 87077; 87086; 87088; 87186; 93005; 99284; A9270

== ENCOUNTER 2024-01-24 11:17 | Outpatient (CLI) | payer MEDICARE, SELFPAY ==
--- NOTE | ~2024-01-24 | XR_ITS ---
SINGLE AP VIEW PELVIS Ordering provider: Silvino Malagon MD History: . sacrococcygeal disorders, low back pain,NKI,DOWN RT LEG . Comparison: None. FINDINGS: BONES: No acute fracture or dislocation. HIP JOINT SPACES: Normal. SACROILIAC JOINT SPACES/LUMBAR SPINE: The sacroiliac joint spaces are normal. Mild degenerative collins es of the visualized lower lumbar spine. PUBIC SYMPHYSIS: Pubic symphysitis. SOFT TISSUES: Normal. IMPRESSION: No acute osseous abnormality pelvis. Reviewed, dictated and finalized at location A. NEYMAN WELDER
--- NOTE | ~2024-01-24 | XR_ITS ---
3 VIEWS LUMBAR SPINE Ordering provider: Silvino Malagon MD History: . sacrococcygeal disorders, low back pain,NKI,DOWN RT LEG . Comparison: None. FINDINGS: VERTEBRAL BODIES:Compression fracture of T12 with loss of height of about 50%. The fractures most lik charlene acute. Levoscoliosis. DISK SPACES: Normal. Multilevel facet joint disease. SOFT TISSUES: Atherosclerotic changes of the aorta. IMPRESSION: Compression fracture of T12. MRI evaluation advised. Reviewed, dictated and finalized at location A. ICAL MANAGER HOME CARE
[2024-01-24 11:39] LABS: Add Urine Microscopic? YES; Appearance Urine Clear (Clear); Bilirubin Urine Negative (Negative); Blood Urine 3+ (Negative); Color Urine Light Yellow (Yellow); Glucose Urine UA 3+ (Negative); Ketones Urine Negative (Negative); Leukocyte Esterase Ur Negative LEU/UL (Negative); Nitrate Urine Negative (Negative); Protein Urine Negative (Negative); Urobilinogen Urine 0.2 mg/dL (0.2-1.0)
[2024-01-24 11:44] LABS: Bacteria Urine Trace /hpf; Squamous Epithelial Cell Urine Few /hpf (Few); WBC Urine None seen /hpf (0-3)
== END 2024-01-24 11:18 | disposition home or self-care (01) ==
PROVIDERS: PCP Family Medicine; Visit Provider Family Medicine
DX: M53.3 Sacrococcygeal disorders, not elsewhere classified (principal); S22.080A Wedge compression fracture of T11-T12 vertebra, initial encounter for closed fracture; X58.XXXA Exposure to other specified factors, initial encounter
CPT/HCPCS: 72100; 72170; 81001

== ENCOUNTER 2024-02-09 15:50 | Outpatient (CLI) | payer MEDICARE, SELFPAY ==
[2024-02-09 16:47] LABS: Add Urine Microscopic? YES; Bilirubin Urine Negative (Negative); Blood Urine 3+ (Negative); Color Urine Light Yellow (Yellow); Glucose Urine UA 3+ (Negative); Ketones Urine Negative (Negative); Leukocyte Esterase Ur Trace (Negative); Nitrate Urine Negative (Negative); Protein Urine Negative (Negative); Urobilinogen Urine 0.2 mg/dL (0.2-1.0); pH Urine 5.5 (5.0-8.0)
[2024-02-09 17:01] LABS: Appearance Urine Sl Cloudy (Clear); Bacteria Urine 1+ /hpf; RBC Urine 21-50 /hpf (0-2); Squamous Epithelial Cell Urine Rare /hpf (Few); WBC Urine 0-3 /hpf (0-3)
== END 2024-02-09 15:51 | disposition home or self-care (01) ==
PROVIDERS: PCP Family Medicine; Visit Provider Family Medicine
DX: R31.9 Hematuria, unspecified (principal); S22.080A Wedge compression fracture of T11-T12 vertebra, initial encounter for closed fracture
CPT/HCPCS: 81001; 88112

== ENCOUNTER 2024-02-16 08:51 | Outpatient (CLI) | payer MEDICARE, SELFPAY ==
--- NOTE | ~2024-02-16 | MR_ITS ---
EXAMINATION: MR thoracic spine wo con DATE: 02/16/2024 10:14 INDICATION: Mid back pain. TECHNIQUE: Magnetic resonance imaging (MRI) of the thoracic spine was performed without intravenous c ontrast. Sagittal localizer T1-weighted FSE of the cervical spine was obtained. Thoracic spine sequen mihir included sagittal T2-weighted FSE, sagittal T1-weighted FSE, sagittal T2-weighted FS FSE, and axi al T2-weighted FSE. COMPARISON: Lumbar spine radiographs 01/24/2024 FINDINGS: There is 8 degrees dextrocurvature of thoracic spine. There is a burst fracture of T11 with 2/5 loss of height, edema-like marrow signal intensity, and retropulsion of bone 2 mm into central s paula canal. There is mildly decreased disc height at T6-T7. At T10-T11, the disc is bulging with mil d central canal stenosis. There is multilevel facet joint osteoarthritis, severe bilaterally at T10-T 11 and on the right at T3-T4 and T4-T5. There is mild right neural foraminal stenosis at T3-T4, T4-T5 , T5-T6, and T10-T11. There is mild left neural foraminal stenosis at T10-T11. The spinal cord signal intensity is normal. The conus medullaris is at T12. IMPRESSION: 1. Subacute burst fracture of T11, stable from 01/24/2024. Reviewed, dictated and finalized at location A. NCIAL COMPLIANCE EXAMINER
== END 2024-02-16 08:52 | disposition home or self-care (01) ==
LOC: CHSIMG 08:54
PROVIDERS: PCP Family Medicine; Visit Provider Family Medicine
DX: R31.9 Hematuria, unspecified (principal); S22.080A Wedge compression fracture of T11-T12 vertebra, initial encounter for closed fracture
CPT/HCPCS: 72146

== ENCOUNTER 2024-04-20 23:33 | Observation (INO) | payer MEDICARE, SELFPAY ==
--- NOTE | ~2024-04-20 | CT_ITS ---
CT head without contrast Indication: Altered mental status COMPARISON: 09/10/2023 Technique: Serial scans were obtained through the brain without the administration of contrast. Dose reduction technique was used on this scan by utilizing automated exposure control and iterative recon struction technique. The dose-length product (DLP) was 681.00 mGy-cm. Findings: There is no evidence of intracranial hemorrhage, mass lesion, or acute infarct. Chronic lef t occipital infarct again noted. The ventricles and subarachnoid spaces are dilated, consistent with mild to moderate atrophy. Low attenuation regions are seen within the periventricular white matter b ilaterally, likely representing changes from chronic microvascular ischemic disease. There is no evid ence of edema, mass effect or midline shift. The visualized paranasal sinuses and mastoid air cells are clear. Impression: No intracranial hemorrhage, mass, or acute infarct. Stable chronic left occipital lobe infarct. Atrophy and chronic white matter changes, as above. Reviewed, dictated and finalized at location . Impression: No intracranial hemorrhage, mass, or acute infarct. Stable chronic left occipital lobe infarct. Atrophy and chronic white matter changes, as above.
--- NOTE | ~2024-04-20 | XR_ITS ---
Portable chest x-ray Comparison: 09/10/2023 Clinical History: Seizure Findings: Probable mild central congestive change or vascular crowding. Small left pleural effusion present. Cardiomediastinal silhouette is stable. Bones and soft tissues are unremarkable. Impression: Small left pleural effusion with central congestive change or vascular crowding. Reviewed, dictated and finalized at [facility]. Impression: Small left pleural effusion with central congestive change or vascular crowding .
[2024-04-20 23:34] VITALS: BP 138/64; PULSE 62; RESP 16; TEMP 36.4; O2SAT 97
--- OUTSIDE RECORDS SUMMARY | 2024-04-20 23:34 | XMS_ITS | Clinical Summary ---
Author Organization [facility] Facility Address [address] [address] Care Team Providers Care Fish Frog Or Oyster Farmer Name Role Phone Salomón Meehan MD Primary Care Provider [phone] Medications aspirin (ST OLYA) 81 MG EC tablet Take 81 mg by mouth 1 (one) time each day Active atorvastatin (LIPITOR) 80 MG tablet Take 80 mg by mouth 1 (one) time each day Active betamethasone, augmented, (DIPROLENE) 0.05 % cream Apply 1 application. topically in the morning and 1 application. in the evening. Active GLUCOSE BLOOD 1 each by Other route if needed Use as instructed Active Calcium Carb-Cholecalci ferol 500-3.125 MG-MCG tablet Take 1 tablet by mouth 1 (one) time each day Active cholecalciferol (Vitamin D3) 25 MCG (1000 UT) capsule Take 1,000 Units by mouth 1 (one) time each day Active Fluticasone-Mark meterol (Advair Diskus) 250-50 MCG/ACT aerosol powder Inhale 1 puff in the morning and 1 puff in the evening. Active HYDROcodone-cain taminophen (NORCO) 5-325 MG per tablet Take 1 tablet by mouth every 8 (eight) hours if needed for moderate pain Active insulin glargine (LANTUS) 100 UNIT/ML injection Inject 34 Units under the skin 1 (one) time each day Active Empagliflozin (Jardiance) 10 MG tablet Take 10 mg by mouth 1 (one) time each day in the morning Active levETIRAcetam (KEPPRA) 500 MG tablet Take 500 mg by mouth in the morning and 500 mg in the evening. Active levothyroxine (SYNTHROID, LEVOTHROID) 75 MCG tablet Take 75 mcg by mouth 1 (one) time each day Active metoprolol succinate XL (TOPROL XL) 25 MG 24 hr tablet Take 25 mg by mouth 1 (one) time each day Do not crush or chew. Active montelukast (SINGULAIR) 10 MG tablet Take 10 mg by mouth every night Active sacubitril-vals cassandra (Entresto) 24-26 MG per tablet Take 1 tablet by mouth in the morning and 1 tablet in the evening. Active spironolactone (ALDACTONE) 25 MG tablet Take 25 mg by mouth 1 (one) time each day Active multivitamin-ir ud-mhxvshrn-dfd ic acid (THERAPEUTIC-M) tablet Take 1 tablet by mouth 1 (one) time each day Active venlafaxine XR (EFFEXOR-XR) 75 MG 24 hr capsule Take 75 mg by mouth 1 (one) time each day Do not crush or chew. Active Social History Tobacco Use Types Packs/Day Years Used Date Smoking Tobacco: Never Assessed Comments Unknown Sex and Gender Information Value Date Recorded Sex Assigned at Not on file Legal Sex Female 7:32 PM EST Gender Identity Not on file Sexual Orientation Not on file Plan of Treatment Health Maintenance Due Date Last Done Comments Diabetes: Ophthalmology Exam 04/14/2023 Diabetes: Pedal Pulse Checked 04/14/2023 Diabetes: Sensory Foot Exam 04/14/2023 Diabetes: Visual Foot Exam 04/14/2023 Diabetes: Hemoglobin A1C 05/10/2023 024, 02/08/2023, 07/27/2022 Influenza Vaccine (#1) 2023 3, 11/04/2021, 11/14/2020, Additional history exists Pneumococcal Vaccine: 65+ Years Completed 07/17/2015, 12/04/2009 Hepatitis B Vaccine Aged Out No longe r eligible based on patient's age to complete this topic Procedures Procedure Name Priority Date/Time Associated Diagnosis Comments HEMOGLOBIN A1C Routine 02/08/2023 from Last 3 Months or Most Recently Relevant to Health Maintenance Results * (ABNORMAL) Hemoglobin A1c (02/08/2023) Hemoglobin A1C 11.2(A) 4.0 - 6.0 Blood (Blood, Venous) 02/08/2023 us Historical Provider LAB BLOOD ORDERABLES Arianne l Result from Last 3 Months or Most Recently Relevant to Health Maintenance Care Teams Fish Frog Or Oyster Farmer Relationship Specialty Start Date End Date Salomón Meehan MD [address] [place] [address] PCP - General Internal Medicine 04/05/23
--- OUTSIDE RECORDS SUMMARY | 2024-04-20 23:34 | XMS_ITS | Encounter Summary ---
Author Organization [facility] Address [address] [place] [address] Phone Care Team Providers Care Cover Cutter Name Role Phone Salomón Meehan MD Primary Care Provider [phone] Sheng Castillo MD Unavailable [phone] Kg Syed DPM Unavailable Jose De La Fuente MD Unavailable Pawel Wheeler MD Unavailable [phone] Stacie Lemon MD Unavailable Silvino Malagon MD Primary Care Provider [phone] Reason for Visit * Reason Comments Medication Refill Encounter Details Date Type Department Care Team (Late st Contact Info) Description 02/28/2022 Refill [facility] - Primary Care - [place] [address] [place] [address] Salomón Meehan MD [address] [place] [address] Medication Refill Social History Tobacco Use Types Packs/Day Years Used Date Smoking Tobacco: Never Smokeless Tobacco: Never Alcohol Use Standard Drinks/Week Comments Not Currently 0 (1 standard drink = 0.6 oz pur e alcohol) PHQ-2 Answer Date Recorded Total Score - Questions 1-9 0 /0 10/2021 Sexually Active Control Partners Comments Not Currently Comments No Sex and Gender Information Value Date Recorded Sex Assigned at Female 09/20/2022 8:29 AM CDT Legal Sex Female 9:36 PM CDT Gender Identity Female 09/20/2022 8:29 AM CDT Sexual Orientation Not on file COVID-19 Exposure Response Date Recorded In the last 10 days, have yo u been in contact with someone who was confirmed or suspected to have Coronavirus/COVID-19? No / Unsure 02/25/2022 1:16 PM CHANNEL MANAGER documented as of this encounter Miscellaneous Notes * Telephone Encounter - Pepper Godinez RN - 03/01/2022 9:12 AM CHANNEL MANAGER Refill requested too soon. NEL MANAGER documented in this encounter Plan of Treatment Upcoming Encounters Date Type Department Care Team (Late st Contact Info) Description 05/28/2024 9:30 AM CDT Office Visit [facility] - Endocrinology - [place] [address] [place] [address] Stacie Lemon MD [address] [address] 08/30/2024 10:00 AM CDT Office Visit [facility] - Neurology - [place] [address] [place] [address] Vickie Stallworth APRN, SMELTER OPERATOR [address] [place] [address] documented as of this encounter Visit Diagnoses Not on filedocumented in this encounter Additional Health Concerns Infection Onset Date Last Indicated Resolved Time Respiratory Rule-Out 07/15/2023 07/15/2023 024 1:25 PM CDT Respiratory Rule-Out 08/23/2023 08/23/2023 024 6:42 AM CDT Assessment Noted Time PHQ-9 Depression Total Score: 0 11/17/19 19 10:00 AM CDT documented as of this encounter Care Teams Cover Cutter Relationship Specialty Start Date End Date Salomón Meehan MD [address] [place] [address] PCP - General Internal Medicine 10/20/14 11/14/23 Silvino Malagon MD [address] [place] [address] PCP - General Pediatrics 11/29/23 Sheng Castillo MD [address] [place] [address] Ophthalmology 06/28/19 Kg Syed DPM [address] [place] [address] Consulting Physician Podiatry 01/14/21 Jose De La Fuente MD [address] [place] [address] Consulting Physician Cardiovascular Disease - Cardiology 02/23/22 Pawel Wolfe MD [address] [place] [address] Consulting Physician Neurology 11/04/22 Stacie Lemon MD [address] [id number] Consulting Physician Endocrinology 06/16/23 documented as of this encounter
--- OUTSIDE RECORDS SUMMARY | 2024-04-20 23:34 | XMS_ITS | Encounter Summary ---
Author Organization [facility] Address [address] [place] [address] Phone Care Team Providers Care Licensed Embalmer Supervisor Name Role Phone Salomón Meehan MD Primary Care Provider [phone] Sheng Castillo MD Unavailable [phone] Kg Syed DPM Unavailable [phone] Jose De La Fuente MD Unavailable Pawel Wheeler MD Unavailable [phone] Stacie Lemon MD Unavailable Silvino Malagon MD Primary Care Provider [phone] Reason for Visit * Reason Comments Medication Refill Encounter Details Date Type Department Care Team (Late st Contact Info) Description 11/09/2020 Refill [facility] - Primary Care - [place] [address] [place] [address] Salomón Meehan MD [address] [place] [address] Medication Refill Social History Tobacco Use Types Packs/Day Years Used Date Smoking Tobacco: Never Smokeless Tobacco: Never Alcohol Use Standard Drinks/Week Comments Not Currently 0 (1 standard drink = 0.6 oz pur e alcohol) PHQ-2 Answer Date Recorded PHQ-2 Score 0 10/12/2018 Sexually Active Control Partners Comments Never Comments No Sex and Gender Information Value Date Recorded Sex Assigned at Female 09/20/2022 8:29 AM CDT Legal Sex Female 9:36 PM CDT Gender Identity Female 09/20/2022 8:29 AM CDT Sexual Orientation Not on file documented as of this encounter Miscellaneous Notes * Telephone Encounter - Ramirez Esquivel PAC - 11/10/2020 1:04 PM CDT Rx refill approved. * Telephone Encounter - Hanna Hastings RN - 11/10/2020 9:16 AM CDT Medication failed the protocol, provider to review and approve the medication order if appropriate. Requested Prescriptions Pending Prescriptions Disp Refills Lantus 100 UNIT/ML Solution [Pharmacy Med Name: LANTUS 100 UNIT/ML VIAL] 20 mL 3 Sig: INJECT 18 UNITS SUBCUTANEOUSLY EVERY MORNING There is no refill protocol information for this order documented in this encounter Plan of Treatment Upcoming Encounters Date Type Department Care Team (Late st Contact Info) Description 05/28/2024 9:30 AM CDT Office Visit [facility] - Endocrinology - [place] [address] [place] [address] Stacie Lemon MD [address] [address] 08/30/2024 10:00 AM CDT Office Visit [facility] - Neurology [facility] [address] [place] [id number] Vickie Stallworth APRN, RAG INSPECTOR [address] [place] [address] documented as of this encounter Visit Diagnoses Not on filedocumented in this encounter Additional Health Concerns Infection Onset Date Last Indicated Resolved Time COVID - 19 12/27/2021 12/27/2021 12/28/2021 8:17 AM MEDICAL REVIEW SPECIALIST Respiratory Rule-Out 12/27/2021 12/27/2021 022 12:56 AM MEDICAL REVIEW SPECIALIST Respiratory Rule Out - RPA 12/28/2021 12/28/2021 1 02/27/2021 10:34 PM MEDICAL REVIEW SPECIALIST RSV 12/28/2021 12/28/2021 01/25/2022 12:1 6 AM MEDICAL REVIEW SPECIALIST Respiratory Rule-Out 07/15/2023 07/15/2023 024 1:25 PM CDT Respiratory Rule-Out 08/23/2023 08/23/2023 024 6:42 AM CDT Assessment Noted Time PHQ-9 Depression Total Score: 0 11/17/19 10:00 AM CDT documented as of this encounter Care Teams Licensed Embalmer Supervisor Relationship Specialty Start Date End Date Salomón Meehan MD [address] [place] [address] PCP - General Internal Medicine 10/20/14 11/14/23 Silvino Malagon MD [address] [place] [address] PCP - General Pediatrics 11/29/23 Sheng Castillo MD [address] [place] [address] Ophthalmology 06/28/19 Kg Syed DPM [address] [place] [address] Consulting Physician Podiatry 01/14/21 Jose De La Fuente MD [address] [place] [address] Consulting Physician Cardiovascular Disease - Cardiology 02/23/22 Pawel Wolfe MD [address] [place] [address] Consulting Physician Neurology 11/04/22 Stacie Lemon MD [address] [address] [address] Consulting Physician Endocrinology 06/16/23 documented as of this encounter
--- OUTSIDE RECORDS SUMMARY | 2024-04-20 23:34 | XMS_ITS | Clinical Summary ---
Author Organization [facility] Address [address], [address] [address] Phone Care Team Providers Care Academic Support Center Director Name Role Phone Sheng Castillo MD Unavailable [phone] Kg Syed DPAgusto Unavailable [phone] Jose De La Fuente MD Unavailable Pawel Wheeler MD Unavailable [phone] Stacie Lemon MD Unavailable Silvino Malagon MD Primary Care Provider Allergies Active Allergy Reactions Criticality Noted Date Comments Naproxen Palpitations,Other ( see Comments) Low Altered Heart Rate Medications therapeutic multivitamin-min erals (THERAGRAN-M) Tablet Take 1 Tablet by mouth daily. Active Cholecalciferol (VITAMIN D3 PO) Take 1,000 Units by mouth daily. Active Calcium Carb-Cholecalcif reza (CALCIUM 500 + D PO) Take 1 Tablet by mouth daily. Active Blood Glucose Monitoring Suppl (sceniosTouch Verio) w/Device KitIndications:T ype 2 diabetes mellitus without complication, with long-term current use of insulin (HCC) Test twice daily. 1 Kit 3 Active sacubitril-valsa rtan (Entresto) 24-26 MG TabletIndication s:Congestive heart failure, unspecified HF chronicity, unspecified heart failure type (HCC) Take 1 Tablet by mouth 2 times daily. 180 Tablet 4 3 Active montelukast (SINGULAIR) 10 MG Tablet Take 1 Tablet by mouth every morning. 90 Tablet 3 4 Active spironolactone (ALDACTONE) 25 MG TabletIndication s:Elevated brain natriuretic peptide (BNP) level TAKE 1 TABLET BY MOUTH EVERY DAY 90 Tablet 1 4 Active atorvastatin (LIPITOR) 80 MG Tablet TAKE 1 TABLET BY MOUTH NIGHTLY 90 Tablet 3 4 Active venlafaxine (EFFEXOR-XR) 75 MG CAPSULE SR 24 HR TAKE 1 CAPSULE BY MOUTH EVERY DAY 90 Capsule 3 4 Active apixaban (ELIQUIS) 5 MG TabletIndication s:Atrial Fibrillation Take 1 Tablet by mouth 2 times daily. Indications: Atrial Fibrillation 180 Tablet 1 4 Active Mirabegron ER (Myrbetriq) 50 MG TABLET SR 24 HR Take 50 mg by mouth daily. 30 Tablet 3 4 Active OneTouch Delica Lancets 33G MiscIndications: Type 2 diabetes mellitus without complication, with long-term current use of insulin ([facility]) Test twice daily. 200 Lancet 3 4 Active gabapentin (NEURONTIN) 100 MG Capsule TAKE 1 CAPSULE BY MOUTH EVERY DAY AT NIGHT 90 Capsule 1 4 Active Glucose Blood (OneTouch Verio) StripIndications :Type 2 diabetes mellitus without complication, with long-term current use of insulin ([facility]) Test three times daily. 200 Each 3 4 Active B-D ULTRAFINE III SHORT PEN 31G X 8 MM MiscIndications: Type 2 diabetes mellitus with diabetic neuropathy, unspecified ([facility]) USE TO INJECT INSULIN FOUR TIMES DAILY 400 Pen Needle 1 4 Active levothyroxine (SYNTHROID) 75 MCG Tablet TAKE 1 TABLET BY MOUTH EVERY DAY 90 Tablet 1 4 Active Empagliflozin (JARDIANCE PO) Take by mouth. Active insulin lispro prot & lispro (HumaLOG Mix 75/25 KwikPen) (75-25) 100 UNIT/ML Suspension Pen-injector 26 units at breakfast and 10 units at dinner 30 mL 1 Active levETIRAcetam (Keppra) 500 MG Tablet Take 500 mg by mouth 2 times daily. Active metoprolol tartrate (LOPRESSOR) 25 MG Tablet Take 25 mg by mouth 2 times daily. 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 11/16/2018 Stage 3b chronic kidney disease 02/07/2018 Arthritis Hypertension, essential Mixed hyperlipidemia Type 2 diabetes mellitus wit hout complication, with long-term current use of insulin Hypothyroidism due to acquired atrophy of thyroi d Resolved Problems Problem Noted Date Diagnosed Date Resolved Date Community acquired pneumonia 12/28/2021 07/27/2022 COPD with acute exacerbation 12/28/2021 07/27/2022 Elevated brain natriuretic p eptide (BNP) level 12/28/2021 07/27/2022 Diabetic neuropathy 12/28/2021 01/20/20 COPD exacerbation 02/13/2019 07/22/2020 Acute respiratory failure with hypoxia 02/13/2019 06/28/2019 Multifocal pneumonia 02/13/2019 020 Hyponatremia 02/13/2019 06/28/2019 Leukocytosis 02/13/2019 06/28/2019 Encounters Date Type Department Care Team Description 03/30/2024 Refill [facility] - Primary Care - [place] [address] [place] [address] Salomón Meehan MD Medication Refill 03/01/2024 10:30 AM COMMUNITY HEALTH COUNSELOR Office Visit [facility] - Neurology - [place] [address] [place] [phone] Pawel Wolfe MD Focal seizure (HCC) (Primary Dx); History of ischemic stroke; Paroxysmal A-fib (HCC); Chronic systolic congestive heart failure (HCC) Discharge Disposition: Discharged to home or Selfcare 03/01/2024 Travel 02/20/2024 9:30 AM COMMUNITY HEALTH COUNSELOR Office Visit [facility] - Endocrinology - [place] [address] [place] [address] Stacie Lemon MD Type 2 diabetes mellitus with diabetic polyneuropathy, with long-term current use of insulin (HCC) (Primary Dx); Insulin dose changed (HCC); Class 1 obesity due to excess calories with serious comorbidity and body mass index (BMI) of 31.0 to 31.9 in adult; Medication side effect Discharge Disposition: Discharged to home or Selfcare 02/18/2024 Travel 02/10/2024 Refill [facility] Primary Care - [place] [address] [place] [address] Salomón Meehan MD Medication Refill from Last 3 Months Immunizations Immunization Administration Dates Next Due Covid-19, Mrna, Lnp-s, Bival ent, Moderna, 50 Mcg or 25 mcg dose 12/17/2021 Covid-19, Mrna, Lnp-s, PF, 1 00 mcg/0.5 mL Dose (Moderna) 05/05/2020,04/07/2020 Covid-19, Mrna, Lnp-s, Pf, 3 0 Mcg/0.3 Ml Dose (Pfizer) 01/11/2024,08/12/2021,12/23/2020 Hepatitis A Vaccine 08/14/1999,02/13/1999 Influenza Vaccine greater than 3 yrs 11/07/2012 Influenza Vaccine, Quadrivalent, PF 10/09,11/14/2020,11/07/2019,11/16,10/21/2017,11/25/2016 Influenza, Quadrivalent, Adjuvanted 12/27/2022 Influenza, high-dose, trivalent, PF 11/07/2014 PUR FLU HIGH DOSE (FLUZONE) 11/17/2015 PUR PCV-13 07/17/2015 Pneumococcal Vaccine Adult - 23 Valent 0 Pneumococcal conjugate PCV20 , polysaccharide MAL864 conjugate, adjuvant, PF 01/11/2024 RSV, Bivalent, Protein Subun it Rsvpref, Diluent Reconstit (Abrysvo) 01/11/2024 TB Skin Test 10/01/2023 Tetanus Toxoid, Unspecified Formulation 12/08/2011 Zoster Vaccine Recombinant 06/23/2018,01/18/2018 Zoster Vaccine, live 04/16/2016 Family History Medical History Relation Name Comments Cancer Brother Brain Diabetes Brother Cancer Daughter Breast No Known Problems Father Cancer Mother Cancer Sister Leukemia Diabetes Sister Relation Name Status Comments Brother Alive Daughter Father Mother Sister Alive Social History Tobacco Use Types Packs/Day Years Used Date Smoking Tobacco: Never Smokeless Tobacco: Never Tobacco Cessation:Counseling Given: Not Answered Alcohol Use Standard Drinks/Week Comments Yes 0 (1 standard drink = 0.6 oz pur e alcohol) RARELY WINE PHQ-2 Answer Date Recorded Total Score - Questions 1-9 0 03/2023 Sexually Active Control Partners Comments Not Currently Comments No Sex and Gender Information Value Date Recorded Sex Assigned at Female 09/20/2022 8:29 AM CDT Legal Sex Female 9:36 PM CDT Gender Identity Female 09/20/2022 8:29 AM CDT Sexual Orientation Not on file Last Filed Vital Signs Vital Sign Reading Time Taken Comments Blood Pressure 118/68 03/01/2024 10:21 AM COMMUNITY HEALTH COUNSELOR Pulse 62 03/01/2024 10:21 AM COMMUNITY HEALTH COUNSELOR Temperature 36.3 C (97.3 F) 03/01/2024 10:21 AM COMMUNITY HEALTH COUNSELOR Respiratory Rate 16 03/01/2024 10:2 1 AM COMMUNITY HEALTH COUNSELOR Oxygen Saturation 96% 03/01/2024 10: 21 AM COMMUNITY HEALTH COUNSELOR Inhaled Oxygen Concentration - - Weight 89.3 kg (196 lb 12.8 oz) 025 10:21 AM COMMUNITY HEALTH COUNSELOR Height 167.6 cm (5' 6 ) 03/01/2024 10:2 1 AM COMMUNITY HEALTH COUNSELOR Body Mass Index 31.76 03/01/2024 10:21 AM COMMUNITY HEALTH COUNSELOR Plan of Treatment Upcoming Encounters Date Type Department Care Team (Late st Contact Info) Description 05/28/2024 9:30 AM CDT Office Visit [facility] - Endocrinology - [place] [address] [place] [phone] Stacie Lemon MD [address] [address] 08/30/2024 10:00 AM CDT [facility] [place] [address] [place] [address] Vickie Stallworth APRN, METAL TANK ERECTOR [address] [place] [address] Health Maintenance Due Date Last Done Comments Diabetes: Foot Exam 1940 TdaP Immunization 1940 Diabetes: Eye Exam 01/14/2023 01/14/2022 DEXA Bone Density 04/10/2023 04/09/2021, 07/26/2012 Influenza Immunization (#1) 10/09/202312/09, 11/04/2021, 11/14/2020, Additional history exists SARS-COV-2 Immunization ( season) 2024 01/11/2024, 12/17/2021, 08/12/2021, Additional history exists Diabetes: Hemoglobin A1c 08/19/2024 025, 11/15/2023, 02/08/2023, Additional history exists Diabetes: Nephropathy Screening 09/09/2024 09/10/2023, 08/23/2023, 08/23/2023, Additional history exists Zoster Immunization Completed 06/23/2018, 01/18/2018, 04/16/2016 Hepatitis C Virus (HCV) Screening Completed 02/08/2023 Pneumococcal Immunization (50+ years) Completed 01/11/2024, 07/17/2015, 12/04/2009 Pneumococcal Immunization Combined Discontinued 01/11/2024, 07/17/2015, 12/04/2009 Respiratory Syncytial Virus (RSV) Immunization (Adult) Completed 01/11/2024 Hepatitis B Immunization Aged Out No longer eligible based on patient's age to complete this topic Meningococcal Immunization (ACWY) Aged Out No longer eligible based on patient's age to complete this topic Rotavirus Immunization Aged Out No lo nger eligible based on patient's age to complete this topic Procedures Procedure Name Priority Date/Time Associated Diagnosis Comments POCT GLYCOSYLATED HEMOGLOBIN Routine 02/20/2024 9:13 AM COMMUNITY HEALTH COUNSELOR Type 2 diabetes mellitus with diabetic polyneuropathy, with long-term current use of insulin (HCC) CMP (COMPREHENSIVE METABOLIC PANEL) 09/10/2023 12:00 AM CDT HEPATITIS C ANTIBODY Routine 02/08/2023 10:45 AM COMMUNITY HEALTH COUNSELOR Encounter for hepatitis C screening test for low risk patient HM DILATED EYE EXAM 01/14/2022 1 2:00 AM COMMUNITY HEALTH COUNSELOR ERIN BONE DENSITOMETRY AXIAL SKELETON Routine 04/09/2021 1:42 PM COMMUNITY HEALTH COUNSELOR Menopausal and postmenopausal disorder Encounter for screening for osteoporosis from Last 3 Months or Most Recently Relevant to Health Maintenance Results * (ABNORMAL) POCT GLYCOSYLATED HEMOGLOBIN (02/20/2024 9:13 AM COMMUNITY HEALTH COUNSELOR) HGB-A1C 8.7(A) 4 - 6 % Blood 02/20/2024 9:13 AM COMMUNITY HEALTH COUNSELOR us Stacie Lemon MD POINT OF CARE TESTING (MANUAL) F inal Result * CMP (COMPREHENSIVE METABOLIC PANEL) (09/10/2023 12:00 AM CDT) 09/10/2023 us Provider Scan CHEMISTRY ORDERABLES Final Resul t SCAN * HEPATITIS C ANTIBODY (02/08/2023 10:45 AM COMMUNITY HEALTH COUNSELOR) hepatitis C antibody 0.09 <1 S/CO [facility] ARCH [id number] B 02/08/2023 9:45 PM COMMUNITY HEALTH COUNSELOR [facility] Comment: Signal/Cutoff ratio < 0.79 is Nondetected Signal/Cutoff ratio 0.80-0.99 is Grayzone Signal/Cutoff ratio > 0.99 is Detected Supplemental assays are recommended if signal/cutoff ratio is >/=1.00. Signal/cutoff ratio result >/= 5.00 is 97% predictive of positivity for recombinant immunoblot assay (RIBA) and will be reported to the [place] Department of Public Health as required. Blood Venipuncture / Unknown 02/08/2023 10:45 AM COMMUNITY HEALTH COUNSELOR 02/08/2023 10:45 AM COMMUNITY HEALTH COUNSELOR us Salomón Meehan MD CHEMISTRY ORDERABLES Arianne l Result [facility] [address] [place] [address], [place] * HM DILATED EYE EXAM (01/14/2022 12:00 AM COMMUNITY HEALTH COUNSELOR) 01/14/2022 us Not On File Provider PROCEDURE/MINOR SURGICAL OR DERABLES Final Result SCAN * [facility] BONE DENSITOMETRY AXIAL SKELETON (04/09/2021 1:42 PM COMMUNITY HEALTH COUNSELOR) Anatomical Region Laterality Modality BODY N/A Other 04/09/2021 8:13 PM COMMUNITY HEALTH COUNSELOR Impressions 04/09/2021 8:15 PM COMMUNITY HEALTH COUNSELOR IMPRESSION: Normal bone mineral density by WHO criteria. REFERENCE: Bone mineral density: Normal (T-score above or = -1.0) Low bone mass (T-score between -1.0 and -2.5) replaces the previously used term osteopenia Osteoporosis (T-score = or below -2.5) Medical evaluation for secondary causes of low bone mineral density may be appropriate. FRAX is a World Health Organization validated fracture risk assessment tool that calculates a person's 10 year probability of a major osteoporosis related fracture and hip fracture. According to the National Osteoporosis Foundation guidelines, postmenopausal women and men age 50 or older with low bone mass and a 10 year probability of a major osteoporosis related fracture = or greater than 20% or a 10 year probability of a hip fracture = or greater than 3% should be considered for treatment. For further information, including treatment recommendations, please refer to the 2013 ISCD Official Positions (http://www.iscd.org) and the NOF's Clinician's Guide to Prevention and Treatment of Osteoporosis (http://www.nof.org/professionals/clinical-guidelines) Narrative 04/09/2021 8:15 PM COMMUNITY HEALTH COUNSELOR EXAM DESCRIPTION: [facility] BONE DENSITOMETRY AXIAL SKELETON REASON FOR STUDY: Post-menopausal female, screening for osteoporosis. It Program Engagement Director/Model: Dextr (S/N [id number]) CLINICAL INFORMATION: Current height: 65 inches Maximum height: 65 inches Weight: 198 pounds Risk factors: Secondary osteoporosis COMPARISON: 07/26/2012 FINDINGS: AP LUMBAR SPINE L1-L4: Total BMD is 1.156 g/cm2 T-score is -0.3 Most recent prior BMD was 1.040 g/cm2 There has been a 11.2% increase in BMD which is statistically significant. LEFT HIP: Current Total BMD is 1.113 g/cm2 T-score is 0.8 Most recent prior Total BMD was 1.167 g/cm2 There has been a 4.6% decrease in BMD which is statistically significant. Current femoral neck BMD is 1.046 g/cm2 T-score is 0.1 THIS IS AN ELECTRONICALLY VERIFIED FINAL REPORT 04/09/2021 8:13 PM - Electronically signed by Nik Arrington M.D. AB: AB Report ID: [id number] Reading Location: [place] [address] Procedure Note Nik Arrington MD - 04/09/2021 EXAM DESCRIPTION: ERIN BONE DENSITOMETRY AXIAL SKELETON REASON FOR STUDY: Post-menopausal female, screening for osteoporosis. It Program Engagement Director/Model: Dextr (S/N [id number]) CLINICAL INFORMATION: Current height: 65 inches Maximum height: 65 inches Weight: 198 pounds Risk factors: Secondary osteoporosis COMPARISON: 07/26/2012 FINDINGS: AP LUMBAR SPINE L1-L4: Total BMD is 1.156 g/cm2 T-score is -0.3 Most recent prior BMD was 1.040 g/cm2 There has been a 11.2% increase in BMD which is statistically significant. LEFT HIP: Current Total BMD is 1.113 g/cm2 T-score is 0.8 Most recent prior Total BMD was 1.167 g/cm2 There has been a 4.6% decrease in BMD which is statistically significant. Current femoral neck BMD is 1.046 g/cm2 T-score is 0.1 THIS IS AN ELECTRONICALLY VERIFIED FINAL REPORT 04/09/2021 8:13 PM - Electronically signed by Nik HILL: Report ID: [id number] Reading Location: [id number] IMPRESSION: Normal bone mineral density by WHO criteria. REFERENCE: Bone mineral density: Normal (T-score above or = -1.0) Low bone mass (T-score between -1.0 and -2.5) replaces the previously used term osteopenia Osteoporosis (T-score = or below -2.5) Medical evaluation for secondary causes of low bone mineral density may be appropriate. FRAX is a World Health Organization validated fracture risk assessment tool that calculates a person's 10 year probability of a major osteoporosis related fracture and hip fracture. According to the National Osteoporosis Foundation guidelines, postmenopausal women and men age 50 or older with low bone mass and a 10 year probability of a major osteoporosis related fracture = or greater than 20% or a 10 year probability of a hip fracture = or greater than 3% should be considered for treatment. 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 PRE-ARREST: Use entire range of life support measures to stabilize the patient. * Full Code Date Activated Date Inactivated Comments 02/13/2019 10:52 AM 02/17/2019 1:46 PM CPR-Full Guillaume atment: FULL ARREST: Attempt Resuscitation/CPR wit intubation and mechanical ventilation. PRE-ARREST: Use entire range of life support measures to stabilize the patient. Care Teams Academic Support Center Director Relationship Specialty Start Date End Date Silvion Malagon MD [address] [place] [address] PCP - General Pediatrics 11/29/23 Sheng Castillo MD [address] [place] [address] Ophthalmology 06/28/19 Kg Syed DPM [address] [place] [address] Consulting Physician Podiatry 01/14/21 Jose De La Fuente MD [address] [place] [address] Consulting Physician Cardiovascular Disease - Cardiology 02/23/22 Pawel Wolfe MD [address] [place] [address] Consulting Physician Neurology 11/04/22 Stacie Lemon MD [address] [id number] Consulting Physician Endocrinology 06/16/23
--- OUTSIDE RECORDS SUMMARY | 2024-04-20 23:34 | XMS_ITS | Encounter Summary ---
Author Organization [facility] Address [address] [place] [address] Phone Care Team Providers Care Senior Project Accountant Name Role Phone Salomón Meehan MD Primary Care Provider [phone] Sheng Castillo MD Unavailable [phone] Kg Syed DPM Unavailable Jose De La Fuente MD Unavailable Pawel Wheeler MD Unavailable [phone] Stacie Lemon MD Unavailable Silvino Malagon MD Primary Care Provider [phone] Reason for Visit * Reason Comments Medication Refill Encounter Details Date Type Department Care Team (Late st Contact Info) Description 10/29/2020 Refill [facility] [address] [place] [address] Salomón Meehan MD [address] [place] [address] Medication Refill Social History Tobacco [...] on file documented as of this encounter Plan of Treatment Upcoming Encounters Date Type Department Care Team (Late st Contact Info) Description 05/28/2024 9:30 AM CDT Office Visit [facility] - Endocrinology - [place] [address] [place] [address] Stacie Lemon MD [address] [place] [address] 08/30/2024 10:00 AM CDT Office Visit [facility] - Neurology - [place] [address] [place] [address] Vickie Stallworth, FLEET DRIVER, FIELD APPLICATION ENGINEER [address] [place] [address] documented as of this encounter Visit Diagnoses Not on filedocumented in this encounter Additional Health Concerns Infection Onset Date Last Indicated Resolved Time COVID - 19 12/27/2021 12/27/2021 12/28/2021 8:17 AM SURVEILLANCE CAMERA TECHNICIAN Respiratory Rule-Out 12/27/2021 12/27/2021 022 12:56 AM SURVEILLANCE CAMERA TECHNICIAN Respiratory Rule Out - RPA 12/28/2021 12/28/2021 1 02/27/2021 10:34 PM SURVEILLANCE CAMERA TECHNICIAN RSV 12/28/2021 12/28/2021 01/25/2022 12:1 6 AM SURVEILLANCE CAMERA TECHNICIAN Respiratory Rule-Out 07/15/2023 07/15/2023 024 1:25 PM CDT Respiratory Rule-Out 08/23/2023 08/23/2023 024 6:42 AM CDT Assessment Noted Time PHQ-9 Depression Total Score: 0 11/17/19 10:00 AM CDT documented as of this encounter Care Teams Senior Project Accountant Relationship Specialty Start Date End Date Salomón Meehan MD [address] [place] [address] PCP - General Internal Medicine 10/20/14 11/14/23 Silvino Malagon MD [address] [place] [address] PCP - General Pediatrics 11/29/23 Sheng Castillo MD [address] [place] [address] Ophthalmology 06/28/19 Kg Syed DPM [address] [place] [address] Consulting Physician Podiatry 01/14/21 Jose De La Fuente MD [address] [place] [address] Consulting Physician Cardiovascular Disease - Cardiology 02/23/22 Pawel Wolfe MD [address] [place] [address] Consulting Physician Neurology 11/04/22 Stacie Lemon MD [address] [address] Consulting Physician Endocrinology 06/16/23 documented as of this encounter
--- OUTSIDE RECORDS SUMMARY | 2024-04-20 23:34 | XMS_ITS | Encounter Summary ---
Author Organization [facility] Address [address] [place] [address] Phone Care Team Providers Care Sap Hana Developer Name Role Phone Salomón Meehan MD Primary Care Provider [phone] Sheng Castillo MD Unavailable [phone] Kg Syed DPM Unavailable [phone] Jose De La Fuente MD Unavailable Pawel Wheeler MD Unavailable [phone] Stacie Lemon MD Unavailable Silvino Malagon MD Primary Care Provider [phone] Reason for Visit * Reason Comments Medication Refill Encounter Details Date Type Department Care Team (Late st Contact Info) Description 07/15/2023 Refill [facility] - Primary Care - [place] [address] [place] [address] Salomón Meehan MD [address] [place] [address] Medication Refill Social History Tobacco Use Types Packs/Day Years Used Date Smoking Tobacco: Never Smokeless Tobacco: Never Alcohol Use Standard Drinks/Week Comments Yes 0 (1 standard drink = 0.6 oz pur e alcohol) RARELY WINE PHQ-2 Answer Date Recorded Total Score - Questions 1-9 0 01/0 03/2023 Sexually Active Control Partners Comments Not Currently Comments No Sex and Gender Information Value Date Recorded Sex Assigned at Female 09/20/2022 8:29 AM CDT Legal Sex Female 9:36 PM CDT Gender Identity Female 09/20/2022 8:29 AM CDT Sexual Orientation Not on file documented as of this encounter Miscellaneous Notes * Telephone Encounter - Ronald Hughes RN - 07/16/2023 10:08 AM CDT discontinued on 06/16/2023 by Stacie Lemon MD for the following reason: Therapy completed. documented in this encounter Plan of Treatment Upcoming Encounters Date Type Department Care Team (Late st Contact Info) Description 05/28/2024 9:30 AM CDT Office Visit [facility] - Endocrinology - [place] [address] [place] [address] Stacie Lemon MD [address] [address] 08/30/2024 10:00 AM CDT Office Visit [facility] - Neurology - [place] [address] [place] [address] Vickie Stallworth APRN, SLICE CUTTING MACHINE OPERATOR [address] [place] [address] documented as of this encounter Visit Diagnoses Not on filedocumented in this encounter Additional Health Concerns Infection Onset Date Last Indicated Resolved Time Respiratory Rule-Out 07/15/2023 07/15/2023 024 1:25 PM CDT Respiratory Rule-Out 08/23/2023 08/23/2023 024 6:42 AM CDT Assessment Noted Time PHQ-9 Depression Total Score: 0 02/08/19 10:13 AM DIE CAST PATTERNMAKER documented as of this encounter Care Teams Sap Hana Developer Relationship Specialty Start Date End Date Salomón Meehan MD [address] [place] [address] PCP - General Internal Medicine 10/20/14 11/14/23 Silvino Malagon MD [address] [place] [address] PCP - General Pediatrics 11/29/23 Sheng Castillo MD [address] [place] [address] Ophthalmology 06/28/19 Kg Syed DPM [address] [place] [address] Consulting Physician Podiatry 01/14/21 Jose De La Fuente MD [address] [place] [address] Consulting Physician Cardiovascular Disease - Cardiology 02/23/22 Pawel Wolfe MD [address] [place] [address] Consulting Physician Neurology 11/04/22 Stacie Lemon MD [address] [address] Consulting Physician Endocrinology 06/16/23 documented as of this encounter
--- OUTSIDE RECORDS SUMMARY | 2024-04-20 23:34 | XMS_ITS | Clinical Summary ---
Author Organization [facility] Address [address] [place] [address] Care Team Providers Care Assistant Director Of Financial Aid Name Role Phone Salomón Meehan MD Primary Care Provider [phone] Allergies Active Allergy Reactions Criticality Noted Date Comments Naproxen Hallucinations 04/18/2019 Medications glipiZIDE 10 MG tabletIndication s:Diabetes Mellitus Take 10 mg by mouth every morning before breakfast. Indications: Diabetes Active levothyroxine 75 MCG tabletIndication s:Hypothyroidism Take 75 mcg by mouth every morning. Indications: Underactive Thyroid Active SITagliptin 100 MG tabletIndication s:Diabetes Mellitus Take 100 mg by mouth daily. Indications: Diabetes Active venlafaxine 75 MG tabletIndication s:Anxiety,Depres sudha Take 75 mg by mouth daily. Indications: Feeling Anxious, Depression Active metFORMIN 500 MG tabletIndication s:Diabetes Mellitus Take 500 mg by mouth 2 (two) times daily with meals. Indications: Diabetes Active quinapril 10 MG tabletIndication s:Hypertension Take 10 mg by mouth daily. Indications: High Blood Pressure Disorder Active gabapentin 100 MG capsuleIndicatio ns:Neuropathy Take 100 mg by mouth nightly at bedtime. Indications: Nerve Disease Active Cholecalciferol (VITAMIN D-3) 25 MCG (1000 UT) CapIndications:N utritional Support Take 1 tablet by mouth daily. Indications: Nutritional Support Active calcium carbonate-vitami n D (OSCAL 500/200 D-3) 500-200 MG-UNIT TabIndications:N utritional Support Take 1 tablet by mouth daily. Indications: Nutritional Support Active Multiple Vitamins-Mineral s ([employer] SPECTRAVITE OR)Indications:N utritional Support Take 1 tablet by mouth daily. Indications: Nutritional Support Active lovastatin 40 MG tabletIndication s:Hypercholester olemia Take 40 mg by mouth every evening. Indications: High Amount of Cholesterol in the Blood Active insulin glargine (LANTUS) 100 UNIT/ML injection (VIAL)Indication s:Diabetes Mellitus Inject 10 Units into the skin nightly at bedtime. Indications: Diabetes Every afternoon @@ 1400 Active fluticasone-salm eterol (ADVAIR DISKUS) 250-50 MCG/DOSE inhalerIndicatio ns:Dyspnea Inhale 1 puff into the lungs as needed. Indications: Difficulty Breathing Active montelukast 10 MG tabletIndication s:Allergic Rhinitis,Asthma Take 10 mg by mouth nightly at bedtime. Indications: Allergic Rhinitis, Asthma Active Active Problems No known active problems Family History Medical History Relation Comments Cancer Mother Relation Status Comments Father no info availabl e on her father Mother mother when pt was 4 yrs old Social History Tobacco Use Types Packs/Day Years Used Date Smoking Tobacco: Never Smokeless Tobacco: Never Alcohol Use Standard Drinks/Week Comments Yes 0 (1 standard drink = 0.6 oz pur e alcohol) rarely Comments Unknown Sex and Gender Information Value Date Recorded Sex Assigned at Not on file Legal Sex Female 9:56 AM CDT Gender Identity Not on file Sexual Orientation Not on file Last Filed Vital Signs Vital Sign Reading Time Taken Comments Blood Pressure 138/67 07/24/2019 12:45 PM CDT Pulse 81 07/24/2019 12:45 PM CDT Temperature 36.6 C (97.8 F) 07/24/2019 12:40 PM CDT Respiratory Rate 18 07/24/2019 12:45 PM CDT Oxygen Saturation 94% 07/24/2019 12:45 PM CDT Inhaled Oxygen Concentration - - Weight 86.2 kg (190 lb) 07/20/2019 10:10 AM CDT Height 167.6 cm (5' 6 ) 07/20/2019 10:10 AM CDT Body Mass Index 30.67 07/20/2019 10:10 AM CDT Plan of Treatment Health Maintenance Due Date Last Done Comments DTaP, Tdap and Td Vaccines (1 - Tdap) 1959 Annual Medicare Wellness Visit 02/03/2004 Dexa Scan (General) 02/03/2004 RSV Immunization or 60+ Years (1 - 1-dose 75+ series) 2014 COVID-19 Vaccine (2023- season) 2023 Influenza Adult (#1) 2023 11/16/2018, 10/21/2017, 11/25/2016, Additional history exists Pneumococcal Vaccine: 65+ Years Completed 07/17/2015, 12/04/2009 Zoster Vaccines Completed 06/23/2018, 01/07, 04/16/2016 Meningococcal B Vaccine Aged Out No l onger eligible based on patient's age to complete this topic Meningococcal Vaccine Aged Out No tunde sally eligible based on patient's age to complete this topic RSV Immunizations Under 20 Months Aged Out No longer eligible based on patient's age to complete this topic Medical Devices Implanted Type Area Film Developer Device Identifier Shelf Expiration Date Model / Serial / Lot Lens Lens Iol Alfonso [id number] - [id number] Implanted:Qty: 1 on 07/24/2019 by Sheng Castillo MD at [facility] Lens Left: Eye [employer] 08/07/2023 [id number] / [id number] / N/A Description:Implant verified by MD Insurance Care Teams Assistant Director Of Financial Aid Relationship Specialty Start Date End Date Salomón Meehan MD PCP - General INTERNAL MEDICINE 04/21/19
--- OUTSIDE RECORDS SUMMARY | 2024-04-20 23:34 | XMS_ITS | Encounter Summary ---
Author Organization [facility] Address [address] [place] [address] Phone Care Team Providers Care Metal Moulder Name Role Phone Salomón Meehan MD Primary Care Provider [phone] Sheng Castillo MD Unavailable [phone] Kg Syed DPM Unavailable Jose De La Fuente MD Unavailable Pawel Wheeler MD Unavailable [phone] Stacie Lemon MD Unavailable Silvino Malagon MD Primary Care Provider [phone] Reason for Visit * Reason Comments Medication Refill Encounter Details Date Type Department Care Team (Late st Contact Info) Description 05/19/2023 Refill [facility] - Primary Care - [place] [address] [place] [address] Salomón Meehan MD [address] [place] [address] Medication Refill Social History Tobacco Use Types Packs/Day Years Used Date Smoking Tobacco: Never Smokeless Tobacco: Never Alcohol Use Standard Drinks/Week Comments Yes 0 (1 standard drink = 0.6 oz pur e alcohol) RARELY WINE PHQ-2 Answer Date Recorded Total Score - Questions 1-9 0 0 03/2023 Sexually Active Control Partners Comments Not Currently Comments No Sex and Gender Information Value Date Recorded Sex Assigned at Female 09/20/2022 8:29 AM CDT Legal Sex Female 9:36 PM CDT Gender Identity Female 09/20/2022 8:29 AM CDT Sexual Orientation Not on file documented as of this encounter Miscellaneous Notes * Telephone Encounter - Ilana Funes RN - 05/19/2023 11:51 AM CDT Medication(s) refilled and signed per [facility] Chronic Medication Refill Standing Order for Pediatricand Adult Patients. Requested Prescriptions Pending Prescriptions Disp Refills Insulin Pen Needle (B-D ULTRAFINE III SHORT PEN) 31G X 8 MM Misc [Pharmacy Med Name: BD UF SHORT PEN NEEDLE [id number]] 100 Pen Needle 1 Sig: USE TO INJECT INSULIN FOUR TIMES DAILY Diabetic Supplies Protocol Passed - 05/19/2023 11:46 AM Passed - Visit with relevant provider in past 6 months Recent Visits Date Type Provider Dept 04/21/23 Office Visit Hazel Acuña APRN, CORPORATE TRAVEL COUNSELOR [facility] 02/08/23 Office Visit Salomón Meehan MD [facility] Showing recent visits within past 182 days and meeting all other requirements Future Appointments Date Type Provider Dept 08/15/23 Appointment Salomón Meehan MD [facility] Showing future appointments within next 90 days and meeting all other requirements documented in this encounter Plan of Treatment Upcoming Encounters Date Type Department Care Team (Late st Contact Info) Description 05/28/2024 9:30 AM CDT Office Visit [facility] - Endocrinology - [place] [address] [place] [address] Stacie Lemon MD [address] [address] [address] 08/30/2024 10:00 AM CDT Office Visit [facility] - Neurology - [place] [address] [place] [address] Vickie Stallworth APRN, CARE TRANSPORT NURSE [address] [facility] [place] [address] documented as of this encounter Visit Diagnoses Diagnosis Type 2 diabetes mellitus with diabetic neuropathy, unspecified (HCC) documented in this encounter Additional Health Concerns Infection Onset Date Last Indicated Resolved Time Respiratory Rule-Out 07/15/2023 07/15/2023 024 1:25 PM CDT Respiratory Rule-Out 08/23/2023 08/23/2023 024 6:42 AM CDT Assessment Noted Time PHQ-9 Depression Total Score: 0 02/08/19 10:13 AM EXPLOSIVE ORDNANCE SPECIALIST documented as of this encounter Care Teams Metal Moulder Relationship Specialty Start Date End Date Salomón Meehan MD [address] [place] [address] PCP - General Internal Medicine 10/20/14 11/14/23 Silvino Malagon MD [address] [place] [address] PCP - General Pediatrics 11/29/23 Sheng Castillo MD [address] [place] [address] Ophthalmology 06/28/19 Kg Syed DPM [address] [place] [address] Consulting Physician Podiatry 01/14/21 Jose De La Fuente MD [address] [place] [address] Consulting Physician Cardiovascular Disease - Cardiology 02/23/22 Pawel Wolfe MD [address] [place] [address] Consulting Physician Neurology 11/04/22 Stacie Lemon MD [address] [address] [address] Consulting Physician Endocrinology 06/16/23 documented as of this encounter
--- OUTSIDE RECORDS SUMMARY | 2024-04-20 23:34 | XMS_ITS | Encounter Summary ---
Author Organization [facility] Address [address] [place] [address] Phone Care Team Providers Care Swimming Pool Salesperson Name Role Phone Salomón Meehan MD Primary Care Provider [phone] Sheng Castillo MD Unavailable [phone] Kg Syed DPM Unavailable [phone] Jose De La Fuente MD Unavailable Pawel Wheeler MD Unavailable [phone] Stacie Lemon MD Unavailable Silvino Malagon MD Primary Care Provider [phone] Reason for Visit * Reason Comments Medication Refill Encounter Details Date Type Department Care Team (Late st Contact Info) Description 10/06/2020 Refill [facility] [address] [place] [address] Salomón Meehan MD [address] [place] [address] Medication Refill Social History Tobacco [...] Description 05/28/2024 9:30 AM CDT Office Visit [facility] - Endocrinology - [place] [address] [place] [address] Stacie Lemon MD [address] [place] [address] 08/30/2024 10:00 AM CDT Office Visit [facility] - Neurology - [place] [address] [place] [address] Vickie Stallworth, CONE RUNNER, GLASS FORMING ENGINEER [address] [place] [address] documented as of this encounter Visit Diagnoses Not on filedocumented in this encounter Additional Health Concerns Infection Onset Date Last Indicated Resolved Time COVID - 19 12/27/2021 12/27/2021 12/28/2021 8:17 AM MACHINE I CUTTER Respiratory Rule-Out 12/27/2021 12/27/2021 022 12:56 AM MACHINE I CUTTER Respiratory Rule Out - RPA 12/28/2021 12/28/2021 1 02/27/2021 10:34 PM MACHINE I CUTTER RSV 12/28/2021 12/28/2021 01/25/2022 12:1 6 AM MACHINE I CUTTER Respiratory Rule-Out 07/15/2023 07/15/2023 024 1:25 PM CDT Respiratory Rule-Out 08/23/2023 08/23/2023 024 6:42 AM CDT Assessment Noted Time PHQ-9 Depression Total Score: 0 11/17/19 10:00 AM CDT documented as of this encounter Care Teams Swimming Pool Salesperson Relationship Specialty Start Date End Date Salomón Meehan MD [address] [place] [address] PCP - General Internal Medicine 10/20/14 11/14/23 Silvino Malagon MD [address] [place] [address] PCP - General Pediatrics 11/29/23 Sheng Castillo MD [address] [place] [address] Ophthalmology 06/28/19 Kg Syed DPM [address] [place] [address] Consulting Physician Podiatry 01/14/21 Jose De La Fuente MD [address] [place] [address] Consulting Physician Cardiovascular Disease - Cardiology 02/23/22 Pawel Wolfe MD [address] [place] [address] Consulting Physician Neurology 11/04/22 Stacie Lemon MD #[address] [address] Consulting Physician Endocrinology 06/16/23 documented as of this encounter
--- OUTSIDE RECORDS SUMMARY | 2024-04-20 23:34 | XMS_ITS | Referral Summary ---
Author Organization [facility] [address] Address [address] [place] [address] Care Team Providers Care Program/Music Director Name Role Phone Silvino Malagon MD Primary Care Provide r Allergies Active Allergy Reactions Criticality Noted Date Comments Naproxen Palpitations Low Medications insulin syringe-needle U-100 (BD INSULIN SYRINGE ULTRA-FINE) 0.3 mL 31 gauge x 16 syringe USE ONE DAILY 7 Active TRUE METRIX GLUCOSE TEST STRIP strip USE TO TEST BLOOD SUGAR TWICE DAILY 6 8 Active lancets 30 gauge misc USE TO TEST BLOOD SUGAR TWICE DAILY E11.9 3 8 Active levothyroxine (SYNTHROID, LEVOTHROID) 75 mcg tablet TAKE 1 TABLET BY MOUTH EVERY DAY 8 Active montelukast (SINGULAIR) 10 mg tablet Take 1 tablet (10 mg total) by mouth 8 Active venlafaxine XR (EFFEXOR-XR) 75 mg 24 hr capsule TAKE ONE CAPSULE BY MOUTH EVERY DAY 8 Active estrogens, conjugated, (PREMARIN) vaginal creamIndication s:Atrophic Vaginitis associated with Menopause Apply 1 gm nightly to vagina for 1 week, then 2-3 times a week. 30 g 11 8 Active Jardiance 10 mg tablet Take 1 tablet (10 mg total) by mouth daily 3 Active gabapentin (NEURONTIN) 100 mg capsule TAKE 1 CAPSULE BY MOUTH EVERY DAY AT NIGHT Active levETIRAcetam (KEPPRA) 500 mg tablet Take 2 tablets (1,000 mg total) by mouth 2 (two) times a day Active metoprolol XL (TOPROL-XL) 25 mg extended release tablet Take 1 tablet (25 mg total) by mouth daily 3 Active Entresto 24-26 mg tablet Take 1 tablet by mouth 2 (two) times a day Active atorvastatin (LIPITOR) 80 mg tablet Take 1 tablet (80 mg total) by mouth nightly Active aspirin 81 mg enteric coated tablet Take 1 tablet (81 mg total) by mouth passenger relations representative before breakfast Active cholecalciferol (VITAMIN D-3) 1,000 unit capsule Take 1 capsule (1,000 Units total) by mouth daily Active spironolactone (ALDACTONE) 25 mg tablet Take 1 tablet (25 mg total) by mouth daily Active BD Insulin Syringe Ultra-Fine 0.5 mL 31 gauge x 5/16 syringe USE DIRECTED WITH LANTUS INSULIN 3 Active Myrbetriq 50 mg tablet extended release 24 hr 4 Active apixaban (ELIQUIS) 5 mg tablet Take 1 tablet (5 mg total) by mouth 2 (two) times a day Active HumaLOG 100 unit/mL pen for injection Inject per slidning scale, 0-70=0 units, 71-200=0 units,201-250=4 units, 251-300-5 units,301-350=6 units,351-400=8 units,401-999- call MD, subQ before meals for DM, Inject per sliding scale subQ at bedtime, 201-250=2 units, 251-300= 3 units,301-350= 4 units, 351-399= 5 units, 400 plus, call MD 4 Active BD Ultra-Fine Short Pen Needle 31 gauge x 5/16 needle USE TO INJECT INSULIN FOUR TIMES DAILY 4 Active insulin lispro protamine-insul in lispro 75/25 (HumaLOG 75/25) 100 unit/mL pen for injection 22 units at breakfast and 12 units at dinner 4 Active Active Problems Problem Noted Date Diagnosed Date Closed 4-part fracture of pr oximal humerus with delayed healing 05/06/2023 Focal seizure 04/21/2023 Hypothyroidism due to acquired atrophy of thyroi d 03/18/2023 Hemianopsia 07/27/2022 Chronic systolic congestive heart failure 2022 Panlobular emphysema 07/22/2020 Hypomagnesemia 02/13/2019 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 11/16/2018 Stage 3b chronic kidney disease 02/07/2018 Arthritis 07/28/2017 DM2 (diabetes mellitus, type 2) 07/28/2017 Hyperlipidemia 07/28/2017 Hypertension, essential 07/28/2017 Hypothyroidism 07/28/2017 Immunizations Immunization Administration Dates Next Due Hep A, Adult 08/14/1999,02/13/1999 Influenza, Quadrivalent, Spl it, Preservative Free, Intramuscular 10/21/2017,11/25/2016 Influenza, Trivalent, High D ose, Split, Preservative Free, Intramuscular 11/17/2015,11/07/2014 Influenza, Trivalent, IM (MDV) 11/07/2012 Pneumococcal Conjugate PCV 13 07/17/2015 Pneumococcal Polysaccharide PPV23 12/04/2009 ZOSTER LIVE 04/16/2016 Social History Tobacco Use Types Packs/Day Years Used Date Smoking Tobacco: Never Smokeless Tobacco: Never Alcohol Use Standard Drinks/Week Comments No 0 (1 standard drink = 0.6 oz pur e alcohol) Comments No Sex and Gender Information Value Date Recorded Sex Assigned at Not on file Legal Sex Female 9:24 AM ELECTRICAL ENGINEERING TEACHER Gender Identity Not on file Sexual Orientation Not on file Occupation Industry Job Start Date Job End Date retired Not on file Not on file Not on file Last Filed Vital Signs Vital Sign Reading Time Taken Comments Blood Pressure 104/58 12/20/2023 9:27 AM ELECTRICAL ENGINEERING TEACHER Pulse 65 12/20/2023 9:27 AM ELECTRICAL ENGINEERING TEACHER Temperature - - Respiratory Rate - - Oxygen Saturation 96% 12/20/2023 9:27 AM ELECTRICAL ENGINEERING TEACHER Inhaled Oxygen Concentration - - Weight 83.9 kg (185 lb) 12/20/2023 9:27 AM ELECTRICAL ENGINEERING TEACHER Height 162.6 cm (5' 4 ) 12/20/2023 9:27 AM ELECTRICAL ENGINEERING TEACHER Body Mass Index 31.76 12/20/2023 9:27 AM ELECTRICAL ENGINEERING TEACHER Plan of Treatment Not on file Procedures Procedure Name Priority Date/Time Associated Diagnosis Comments LIPID PANEL Routine 08/15/2023 1:58 PM CDT from Last 3 Months or Most Recently Relevant to Health Maintenance Results * Lipid panel (08/15/2023 1:58 PM CDT) SCRIBED Cholesterol, Total 116 <200 EXTERNAL LAB SCRIBED HDL 39 >40 EXTERNAL LAB SCRIBED LDL 59 <100 EXTERNAL LAB SCRIBED Triglycerides 112 <150 EXTERNAL LAB Blood us Historical Provider LAB BLOOD ORDERABLES Edit ed Result - Final EXTERNAL LAB from Last 3 Months or Most Recently Relevant to Health Maintenance Insurance MEDICARE SOLUTIONS Care Teams Program/Music Director Relationship Specialty Start Date End Date Silvino Malagon MD [address] [place] [address] PCP - General Family Medicine 12/20/23
--- OUTSIDE RECORDS SUMMARY | 2024-04-20 23:34 | XMS_ITS | Clinical Summary ---
Author Organization [facility] [place] [address] [place] Address [address] [place] [address] Care Team Providers Care Exchange Engineer Name Role Phone Silvino Malagon MD Primary [...] 1 tablet (81 mg total) by mouth blue line trimmer before breakfast Active cholecalciferol (VITAMIN D-3) 1,000 [...] Pneumococcal Polysaccharide PPV23 12/04/2009 ZOSTER LIVE 04/16/2016 Surgical History Surgery Date Site/Laterality Comments TOTAL ABDOMINAL HYSTERECTOMY ? for bleeding BLADDER SUSPENSION ? twice SHOULDER ARTHROSCOPY ? Medical History Medical History Date Comments Hypertension Osteoporosis Diabetes mellitus (HCC) Osteoarthritis Asthma Family History Medical History Relation Name Comments Diabetes Brother Other Father father and his history unknown to patient Heart attack Maternal Grandmother Hypertension Maternal Grandmother Stroke Maternal Grandmother Uterine cancer Mother COD at age 34 Cancer Sister unknown type Diabetes Sister Relation Name Status Comments Brother Father Maternal Grandmother Mother Sister Social History Tobacco Use Types Packs/Day Years Used Date Smoking Tobacco: Never Smokeless Tobacco: Never Alcohol Use Standard Drinks/Week Comments No 0 (1 standard drink = 0.6 oz pur e alcohol) Comments No Sex and Gender Information Value Date Recorded Sex Assigned at Not on file Legal Sex Female 9:24 AM RESTAURANT SHIFT LEADER Gender Identity Not on file Sexual Orientation Not on file Occupation Industry Job Start Date Job End Date retired Not on file Not on file Not on file Obstetrics History Para Term AB IAB SAB Ectopic Multiple Livin g Live Births 4 4 4 0 0 0 0 0 0 4 4 Date Outcome GA Total Labor Labor/2nd/3rd Weight Sex Type Anes PTL Kelsey A1 A5 Name Clin Term Term Term Term Last Filed Vital Signs Vital Sign Reading Time Taken Comments Blood Pressure 104/58 12/20/2023 9:27 AM RESTAURANT SHIFT LEADER Pulse 65 12/20/2023 9:27 AM RESTAURANT SHIFT LEADER Temperature - - Respiratory Rate - - Oxygen Saturation 96% 12/20/2023 9:27 AM RESTAURANT SHIFT LEADER Inhaled Oxygen Concentration - - Weight 83.9 kg (185 lb) 12/20/2023 9:27 AM RESTAURANT SHIFT LEADER Height 162.6 cm (5' 4 ) 12/20/2023 9:27 AM RESTAURANT SHIFT LEADER Body Mass Index 31.76 12/20/2023 9:27 AM RESTAURANT SHIFT LEADER Plan of Treatment Health Maintenance Due Date Last Done Comments Albumin Creatinine Ratio, Urine 1939 Depression Screening 1939 Fall Risk Assessment 1939 Hemoglobin A1C 1939 eGFR 1939 Dilated Eye Exam 1939 Foot Exam 1939 DTaP/Tdap/Td Vaccine (1 - Tdap) 1950 Hepatitis B Screening 1957 Well Visit 65+ 01/17/2019 01/17/2018 Osteoporosis Screening-Bone Density Scan 04/10/2023 04/09/2021, 04/09/2021 Covid-19 Vaccine (2023-2 5 season) 2023 12/17/2021, 08/12/2021, 08/12/2021, Additional history exists Influenza Vaccine (#1) 2023 , 11/04/2021, 11/14/2020, Additional history exists Lipid Panel 08/14/2024 08/15/2023, 03/2023, 10/20/2017 Pneumococcal vaccine 65+ Completed 016, 12/04/2009, 11/14/2009 Zoster Vaccine Completed 06/23/2018, 01/07, 04/16/2016 Procedures Procedure Name Priority Date/Time Associated Diagnosis [...] Relevant to Health Maintenance Insurance [facility]IC[facility] Address: [facility] [id number] [place] [id number] Care Teams Exchange Engineer Relationship Specialty Start Date End Date Silvino Malagon MD [address] [place] [address] PCP - General Family Medicine 12/20/23
--- OUTSIDE RECORDS SUMMARY | 2024-04-20 23:34 | XMS_ITS | Encounter Summary ---
Author Organization [facility] Address [address] [place] [address] Phone Care Team Providers Care Ice Skating Teacher Name Role Phone Salomón Meehan MD Primary Care Provider [phone] Sheng Castillo MD Unavailable [phone] Kg Syed DPM Unavailable Jose De La Fuente MD Unavailable Pawel Wheeler MD Unavailable [phone] Stacie Lemon MD Unavailable Silvino Malagon MD Primary Care Provider [phone] Reason for Visit * Reason Comments Medication Refill Encounter Details Date Type Department Care Team (Late st Contact Info) Description 07/18/2023 [facility] [place] - [place] [address] [place] [address] Salomón Meehan MD [address] [place] [address] Medication Refill Social History Tobacco Use Types Packs/Day Years Used Date Smoking Tobacco: Never Smokeless Tobacco: Never Alcohol Use Standard Drinks/Week Comments Yes 0 (1 standard drink = 0.6 oz pur e alcohol) RARELY WINE PHQ-2 Answer Date Recorded Total Score - Questions 1-9 0 /0 03/2023 Sexually Active Control Partners Comments Not Currently Comments No Sex and Gender Information Value Date Recorded Sex Assigned at Female 09/20/2022 8:29 AM CDT Legal Sex Female 9:36 PM CDT Gender Identity Female 09/20/2022 8:29 AM CDT Sexual Orientation Not on file documented as of this encounter Miscellaneous Notes * Telephone Encounter - Ronald Hughes RN - 07/18/2023 8:11 AM CDT discontinued on 04/21/2023 by Hazel Acuña APRN, POLE INCISOR OPERATOR for the following reason: Reorder. documented in this encounter Plan of Treatment Upcoming Encounters Date Type Department Care Team (Late st Contact Info) Description 05/28/2024 9:30 AM CDT Office Visit [facility] - Endocrinology - [place] [address] [place] [address] Stacie Lemon MD #[address] [address] 08/30/2024 10:00 AM CDT Office Visit [facility] - Neurology - [place] [address] [place] [address] Vickie Stallworth APRN, SAMPLE PASTER [address] [place] [address] documented as of this encounter Visit Diagnoses Diagnosis Elevated brain natriuretic peptide (BNP) level Other nonspecific findings on examination of blood documented in this encounter Additional Health Concerns Infection Onset Date Last Indicated Resolved Time Respiratory Rule-Out 07/15/2023 07/15/2023 024 1:25 PM CDT Respiratory Rule-Out 08/23/2023 08/23/2023 024 6:42 AM CDT Assessment Noted Time PHQ-9 Depression Total Score: 0 02/08/19 10:13 AM PACKAGE DYE STAND LOADER documented as of this encounter Care Teams Ice Skating Teacher Relationship Specialty Start Date End Date Salomón Meehan MD [address] [place] [address] PCP - General Internal Medicine 10/20/14 11/14/23 Silvino Malagon MD [address] [place] [address] PCP - General Pediatrics 11/29/23 Sheng Castillo MD [address] [place] [address] Ophthalmology 06/28/19 Kg Syed DPM [address] [place] [address] Consulting Physician Podiatry 01/14/21 Jose De La Fuente MD [address] [place] [address] Consulting Physician Cardiovascular Disease - Cardiology 02/23/22 Pawel Wolfe MD [address] [place] [address] Consulting Physician Neurology 11/04/22 Stacie Lemon MD #[address] [address] Consulting Physician Endocrinology 06/16/23 documented as of this encounter
--- OUTSIDE RECORDS SUMMARY | 2024-04-20 23:34 | XMS_ITS | Encounter Summary ---
Author Organization [facility] Address [address] [place] [address] Phone Care Team Providers Care Casino Dealer Name Role Phone Salomón Meehan MD Primary Care Provider [phone] Sheng Castillo MD Unavailable [phone] Kg Syed DPM Unavailable Jose De La Fuente MD Unavailable Pawel Wheeler MD Unavailable [phone] Stacie Lemon MD Unavailable Silvino Malagon MD Primary Care Provider [phone] Reason for Visit * Reason Comments Medication Refill Encounter Details Date Type Department Care Team (Late st Contact Info) Description 11/14[facility] - [place] [address] [place] [address] Salomón Meehan MD [address] [place] [address] Medication Refill Social History Tobacco [...] Miscellaneous Notes * Telephone Encounter - Ronald Hughes, RN - 11/15/2023 8:11 AM CDT discontinued on 04/21/2023 by Hazel Acuña APRN, SHIP'S CARPENTER documented in this encounter Plan of Treatment Upcoming Encounters Date Type Department Care Team (Late st Contact Info) Description 05/28/2024 9:30 AM CDT Office Visit [facility] - Endocrinology - [place] [address] [place] [address] Stacie Lemon MD #[address] [address] 08/30/2024 10:00 AM CDT [facility] - Neurology - [place] [address] [place] [address] Vickie Stallworth APRN, TRANSPORTATION SERVICES REPRESENTATIVE [address] [place] [address] documented as of this encounter Visit Diagnoses Diagnosis Elevated brain natriuretic peptide (BNP) level Other nonspecific findings on examination of blood documented in this encounter Additional Health Concerns Assessment Noted Time PHQ-9 Depression Total Score: 0 02/08/19 24 10:13 AM WEAVER AXMINSTER documented as of this encounter Care Teams Casino Dealer Relationship Specialty Start Date End Date Salomón Meehan MD [address] [place] [address] PCP - General Internal Medicine 10/20/14 11/14/23 Silvino Malagon MD [address] [place] [address] PCP - General Pediatrics 11/29/23 Sheng Castillo MD [address] [place] [address] Ophthalmology 06/28/19 Kg Syed DPM [address] [place] [address] Consulting Physician Podiatry 01/14/21 Jose De La Fuente MD [address] [place] [address] Consulting Physician Cardiovascular Disease - Cardiology 02/23/22 Pawel Wolfe MD [address] [place] [address] Consulting Physician Neurology 11/04/22 Stacie Lemon MD #[address] [address] Consulting Physician Endocrinology 06/16/23 documented as of this encounter
--- OUTSIDE RECORDS SUMMARY | 2024-04-20 23:34 | XMS_ITS | Encounter Summary ---
Author Organization [facility] Address [address] [place] [address] Phone Care Team Providers Care Manager Rn Case Name Role Phone Salomón Meehan MD Primary Care Provider [phone] Sheng Castillo MD Unavailable [phone] Kg Syed DPM Unavailable [phone] Jose De La Fuente MD Unavailable Pawel Wheeler MD Unavailable [phone] Stacie Lemon MD Unavailable Silvino Malagon MD Primary Care Provider [phone] Reason for Visit * Reason Comments Medication Refill Encounter Details Date Type Department Care Team (Late st Contact Info) Description 10/28/2023 Refill [facility] - Primary Care - [place] [address] [place] [address] Salomón Meehan MD [address] [place] [address] Medication Refill Social History Tobacco [...] Telephone Encounter - Ronald Hughes RN - 10/28/2023 4:52 PM CDT Duplicate Request documented in this encounter Plan of Treatment Upcoming Encounters Date Type Department Care Team (Late st Contact Info) Description 05/28/2024 9:30 AM CDT Office Visit [facility] - Endocrinology - [place] [address] [place] [address] Stacie Lemon MD #[address] [address] 08/30/2024 10:00 AM CDT Office Visit [facility] - Neurology - [place] [address] [place] [address] Vickie Stallworth APRN, CERAMIC TILER [address] [place] [address] documented as of this encounter Visit Diagnoses Diagnosis Elevated brain natriuretic peptide (BNP) level Other nonspecific findings on examination of blood documented in this encounter Additional Health Concerns Assessment Noted Time PHQ-9 Depression Total Score: 0 02/08/19 10:13 AM MINE ENGINEERING MANAGER documented as of this encounter Care Teams Manager Rn Case Relationship Specialty Start Date End Date Salomón Meehan MD [address] [place] [address] PCP - General Internal Medicine 10/20/14 11/14/23 Silvino Malagon MD [address] [place] [address] PCP - General Pediatrics 11/29/23 Sheng Castillo MD [address] [place] [address] Ophthalmology 06/28/19 Kg Syed DPM [address] [place] [address] Consulting Physician Podiatry 01/14/21 Jose De La Fuente MD [address] [place] [address] Consulting Physician Cardiovascular Disease - Cardiology 02/23/22 Pawel Wolfe MD [address] [place] [address] Consulting Physician Neurology 11/04/22 Stacie Lemon MD #[address] [phone] Consulting Physician Endocrinology 06/16/23 documented as of this encounter
--- OUTSIDE RECORDS SUMMARY | 2024-04-20 23:34 | XMS_ITS | Encounter Summary ---
Author Organization [facility] Address [address] [place] [address] Phone Care Team Providers Care Hopper Attendant Name Role Phone Salomón Meehan MD Primary Care Provider [phone] Sheng Castillo MD Unavailable [phone] Kg Syed DPM Unavailable Jose De La Fuente MD Unavailable Pawel Wheeler MD Unavailable [phone] Stacie Lemon MD Unavailable Silvino Malagon MD Primary Care Provider [phone] Reason for Visit * Reason Comments Medication Refill Encounter Details Date Type Department Care Team (Late st Contact Info) Description 08/05/2021 Refill [facility] - Primary Care - [place] [address] [place] [address] Salomón Meehan MD [address] [place] [address] Medication Refill Social History Tobacco [...] suspected to have Coronavirus/COVID-19? No / Unsure 07/16/2021 9:20 AM CDT documented as of this encounter Miscellaneous Notes * Telephone Encounter - Ilana Funes RN - 08/05/2021 2:40 PM CDT Medication approved and signed per standing order protocol. documented in this encounter Plan of Treatment Upcoming Encounters Date Type Department Care Team (Late st Contact Info) Description 05/28/2024 9:30 AM CDT Office Visit [facility] - Endocrinology - [place] [address] [place] [address] Stacie Lemon MD #[address] [address] 08/30/2024 10:00 AM CDT [facility] - [place] [address] [place] [address] Vickie Stallworth APRN, R[facility] HE[facility] CONSULTANT [address] [place] [address] documented as of this encounter Visit Diagnoses Not on filedocumented in this encounter Additional Health Concerns Infection Onset Date Last Indicated Resolved Time COVID - 19 12/27/2021 12/27/2021 12/28/2021 8:17 AM CUSTOMER SUPPORT ANALYST Respiratory Rule-Out 12/27/2021 12/27/2021 022 12:56 AM CUSTOMER SUPPORT ANALYST Respiratory Rule Out - RPA 12/28/2021 12/28/2021 1 02/27/2021 10:34 PM CUSTOMER SUPPORT ANALYST RSV 12/28/2021 12/28/2021 01/25/2022 12:1 6 AM CUSTOMER SUPPORT ANALYST Respiratory Rule-Out 07/15/2023 07/15/2023 024 1:25 PM CDT Respiratory Rule-Out 08/23/2023 08/23/2023 024 6:42 AM CDT Assessment Noted Time PHQ-9 Depression Total Score: 0 11/17/19 10:00 AM CDT documented as of this encounter Care Teams Hopper Attendant Relationship Specialty Start Date End Date Salomón Meehan MD [address] [place] [address] PCP - General Internal Medicine 10/20/14 11/14/23 Silvino Malagon MD [address] [place] [address] PCP - General Pediatrics 11/29/23 Sheng Castillo MD [address] [place] [address] Ophthalmology 06/28/19 Kg Syed DPM [address] [place] [address] Consulting Physician Podiatry 01/14/21 Jose De La Fuente MD [address] [place] [address] Consulting Physician Cardiovascular Disease - Cardiology 02/23/22 Pawel Wolfe MD [address] [place] [address] Consulting Physician Neurology 11/04/22 Stacie Lemon MD [address] [address] Consulting Physician Endocrinology 06/16/23 documented as of this encounter
--- OUTSIDE RECORDS SUMMARY | 2024-04-20 23:34 | XMS_ITS | Encounter Summary ---
Author Organization [facility] Address [address] [place] [address] Phone Care Team Providers Care Parking Analyst Name Role Phone Salomón Meehan MD Primary Care Provider [phone] Sheng Castillo MD Unavailable [phone] Kg Syed DPM Unavailable Jose De La Fuente MD Unavailable Pawel Wheeler MD Unavailable [phone] Stacie Lemon MD Unavailable Silvino Malagon MD Primary Care Provider [phone] Encounter Details Date Type Department Care Team (Late st Contact Info) Description 01/18/2022 Lab Requisition [facility] [address] [place] [address] Salomón Meehan MD [address] [place] [address] Pneumonia, unspecified organism Social History Tobacco Use Types Packs/Day Years Used Date Smoking Tobacco: Never Smokeless Tobacco: Never Alcohol Use Standard Drinks/Week Comments Not Currently 0 (1 standard drink = 0.6 oz pur e alcohol) PHQ-2 Answer Date Recorded Total Score - Questions 1-9 0 06/0 10/2021 Sexually Active Control Partners Comments Not [...] suspected to have Coronavirus/COVID-19? No / Unsure 01/21/2022 8:44 AM MEN'S GARMENT FITTER documented as of this encounter Plan of Treatment Upcoming Encounters Date Type Department Care Team (Late st Contact Info) Description 05/28/2024 9:30 AM CDT Office Visit [facility] - Endocrinology - [place] [address] [place] [address] Stacie Lemon MD #[address] [address] 08/30/2024 10:00 AM CDT [facility] [place] [address] [place] [address] Vickie Stallworth APRN, CHILD MONITOR [address] [place] [address] documented as of this encounter Procedures Procedure Name Priority Date/Time Associated Diagnosis Comments CBC WITH AUTO DIFFERENTIAL Routine 01/18/2022 10:09 AM MEN'S GARMENT FITTER Pneumonia, unspecified organism COMPLETE BLOOD COUNT (CBC) WITH DIFF Routine 01/18/2022 10:09 AM MEN'S GARMENT FITTER Pneumonia, unspecified organism BASIC METABOLIC PANEL W/ CALCIUM TOTAL Routine 01/18/2022 10:09 AM MEN'S GARMENT FITTER Pneumonia, unspecified organism documented in this encounter Results * (ABNORMAL) CBC WITH AUTO DIFFERENTIAL (01/18/2022 10:09 AM MEN'S GARMENT FITTER) WBC 7.38 4.00 - 12.00 10(3)/mcL 01/18/2022 11:15 AM [facility] RBC 4.40 3.80 - 5.30 10(6)/mcL 01/18/2022 11:15 AM [facility] HEMOGLOBIN (HGB) 12.4 12.0 - 15.8 g/dL 01/18/2022 11:15 AM [facility] HEMATOCRIT (HCT) 40.7 36.0 - 47.0 % 01/18/2022 11:15 AM [facility] MCV 92.5 82.0 - 96.0 fL 01/18/2022 11:15 AM [facility] MCH 28.2 26.0 - 34.0 pg 01/18/2022 11:15 AM [facility] MCHC 30.5(L) 31.0 - 36.0 g/dL 01/18/2022 11:15 AM [facility] PLATELET COUNT 256 140 - 440 10(3)/[facility] 01/18/2022 11:15 AM [facility] RDW 13.9 11.8 - 15.5 % 01/18/2022 11:15 AM [facility] MPV 9.9 9.7 - 12.4 fL 01/18/2022 11:15 AM [facility] NEUTROPHILS 66.1 47.0 - 73.0 % 01/18/2022 11:15 AM [facility] LYMPHOCYTES 24.1 18.0 - 42.0 % 01/18/2022 11:15 AM [facility] MONOCYTES 6.2 4.0 - 12.0 % 01/18/2022 11:15 AM [facility] EOSINOPHILS 2.8 0.0 - 5.0 % 01/18/2022 11:15 AM [facility] BASOPHILS 0.8 0.0 - 1.0 % 01/18/2022 11:15 AM [facility] ABSOLUTE NEUTROPHILS 4.87 1.60 - 7.70 10(3)/[facility] 01/18/2022 11:15 AM MEN'S GARMENT FITTER [facility] ABSOLUTE LYMPHOCYTES 1.78 1.30 - 3.20 10(3)/[facility] 01/18/2022 11:15 AM MEN'S GARMENT FITTER [facility] ABSOLUTE MONOCYTES 0.46 0.20 - 1.00 10(3)/[facility] 01/18/2022 11:15 AM MEN'S GARMENT FITTER [facility] ABSOLUTE EOSINOPHIL 0.21 0.00 - 0.40 10(3)/[facility] 01/18/2022 11:15 AM MEN'S GARMENT FITTER [facility] ABSOLUTE BASOPHILS 0.06 0.00 - 0.10 10(3)/[facility] 01/18/2022 11:15 AM [facility] NRBC PER 100 WBC 0 01/19/20 11:15 AM [facility] Blood No Phlebotomy Charged / Unknown 01/18/2022 10:09 AM [facility] 01/18/2022 11:12 AM [facility] us Salomón Meehan MD HEMATOLOGY ORDERABLES Fin al Result [facility] [address] [place] [address] * (ABNORMAL) BASIC METABOLIC PANEL W/ CALCIUM TOTAL (01/18/2022 10:09 AM MEN'S GARMENT FITTER) SODIUM 136 136 - 144 mmol/L 01/18/2022 11:33 AM [facility] POTASSIUM 5.5(H) 3.5 - 5.1 mmol/L 01/18/2022 11:33 AM [facility] CHLORIDE 99(L) 100 - 110 mmol/L 01/18/2022 11:33 AM [facility] CO2, VENOUS 27 22 - 32 mmol/L 01/18/2022 11:33 AM [facility] ANION GAP 15.5 8.0 - 20.0 mmol/L 01/18/2022 11:33 AM [facility] GLUCOSE 234(H) 70 - 99 mg/dL 01/18/2022 11:33 AM MEN'S GARMENT FITTER [facility] BUN 20 8 - 23 mg/dL 01/18/2022 11:33 AM MEN'S GARMENT FITTER [facility] CREATININE, BLOOD 1.53(H) 0.60 - 1.10 mg/dL 01/18/2022 11:33 AM MEN'S GARMENT FITTER [facility] BUN/CREATININE RATIO 13 12 - 20 ratio 01/18/2022 11:33 AM MEN'S GARMENT FITTER [facility] CALCIUM 10.3 8.9 - 10.3 mg/dL 01/18/2022 11:33 AM MEN'S GARMENT FITTER [facility] GFR, ESTIMATED 34(L) >=60 01/18/2022 11:33 AM MEN'S GARMENT FITTER [facility] Comment: Creatinine Clearance is the preferred criteria for selecting drug dose adjustments in renally impaired patients. The GFR is provided as additional pertinent clinical information. GFR is reported in mL/min/1.73 sq m. Calculation based on the Chronic Kidney Disease Epidemiology Collaboration (CKD- EPI) equation refit without adjustment for race. GFR, EST. 39(L) >=60 022 11:33 AM MEN'S GARMENT FITTER [facility] GFR, EST. NONAFRICAN 32(L) >=60 01/18/2022 11:33 AM MEN'S GARMENT FITTER [facility] Blood No Phlebotomy Charged / Unknown 01/18/2022 10:09 AM MEN'S GARMENT FITTER 01/18/2022 11:12 AM MEN'S GARMENT FITTER us Salomón Meehan MD CHEMISTRY ORDERABLES Arianne l Result [facility] [address] [place] [address] documented in this encounter Visit Diagnoses Diagnosis Pneumonia, unspecified organism documented in this encounter Additional Health Concerns Infection Onset Date Last Indicated Resolved Time RSV 12/28/2021 12/28/2021 01/25/2022 12:1 6 AM MEN'S GARMENT FITTER Respiratory Rule-Out 07/15/2023 07/15/2023 024 1:25 PM CDT Respiratory Rule-Out 08/23/2023 08/23/2023 024 6:42 AM CDT Assessment Noted Time PHQ-9 Depression Total Score: 0 11/17/19 19 10:00 AM CDT documented as of this encounter Care Teams Parking Analyst Relationship Specialty Start Date End Date Salomón Meehan MD [address] [place] [address] PCP - General Internal Medicine 10/20/14 11/14/23 Silvino Malagon MD [address] [place] [address] PCP - General Pediatrics 11/29/23 Sheng Castillo MD [address] [place] [address] Ophthalmology 06/28/19 Kg Syed DPM [address] [place] [address] Consulting Physician Podiatry 01/14/21 Jose De La Fuente MD [address] [place] [address] Consulting Physician Cardiovascular Disease - Cardiology 02/23/22 Pawel Wolfe MD [address] [place] [address] Consulting Physician Neurology 11/04/22 Stacie Lemon MD #[address] [id number] Consulting Physician Endocrinology 06/16/23 documented as of this encounter
--- OUTSIDE RECORDS SUMMARY | 2024-04-20 23:34 | XMS_ITS | Encounter Summary ---
Author Organization [facility] Address [address] [place] [address] Phone Care Team Providers Care Cotton Acreage Measurer Name Role Phone Salomón Meehan MD Primary Care Provider [phone] Sheng Castillo MD Unavailable [phone] Kg Syed DPM Unavailable Jose De La Fuente MD Unavailable Pawel Wheeler MD Unavailable [phone] Stacie Lemon MD Unavailable Silvino Malagon MD Primary Care Provider [phone] Reason for Visit * Reason Comments Medication Refill Encounter Details Date Type Department Care Team (Late st Contact Info) Description 10/22/2023 Refill [facility] - Primary Care - [place] [address] [place] [address] Salomón Meehan MD [address] [place] [address] Medication Refill Social History Tobacco [...] Telephone Encounter - Ronald Hughes RN - 10/24/2023 8:34 AM CDT discontinued on 04/21/2023 by Hazel Acuña APRN, MOTORCOACH DRIVER documented in this encounter Plan of Treatment Upcoming Encounters Date Type Department Care Team (Late st Contact Info) Description 05/28/2024 9:30 AM CDT Office Visit [facility] - Endocrinology - [place] #2 [place] [address] Stacie Lemon MD #[address] [address] 08/30/2024 10:00 AM CDT [facility] - [place] #2 [place] [address] Vickie Stallworth APRN, SUPERVISOR HAND SILVERING #2 [place] [address] documented as of this encounter Visit Diagnoses Diagnosis Elevated brain natriuretic peptide (BNP) level Other nonspecific findings on examination of blood documented in this encounter Additional Health Concerns Assessment Noted Time PHQ-9 Depression Total Score: 0 02/08/19 24 10:13 AM BARGE PILOT documented as of this encounter Care Teams Cotton Acreage Measurer Relationship Specialty Start Date End Date Salomón Meehan MD [address] [place] [address] PCP - General Internal Medicine 10/20/14 11/14/23 Silvino Malagon MD [address] [place] [address] PCP - General Pediatrics 11/29/23 Sheng Castillo MD [address] [place] [address] Ophthalmology 06/28/19 Kg Syed DPM [address] [place] [address] Consulting Physician Podiatry 01/14/21 Jose De La Fuente MD [address] [place] [address] Consulting Physician Cardiovascular Disease - Cardiology 02/23/22 Pawel Wolfe MD #1 [place] [address] Consulting Physician Neurology 11/04/22 Stacie Lemon MD #[address] [address] Consulting Physician Endocrinology 06/16/23 documented as of this encounter
--- OUTSIDE RECORDS SUMMARY | 2024-04-20 23:34 | XMS_ITS | Encounter Summary ---
Author Organization [facility] Address [address] [place] [address] Phone Care Team Providers Care Dredge Captain Name Role Phone Salomón Meehan MD Primary Care Provider + [phone] Sheng Castillo MD Unavailable [phone] Kg Syed DPM Unavailable [phone] Jose De La Fuente MD Unavailable Pawel Wheeler MD Unavailable [phone] Stacie Lemon MD Unavailable Silvino [place]agon MD Primary Care Provider [phone] Encounter Details Date Type Department Care Team (Latest Contact Info) Description 05/27/2022 Transcribe Orders [facility] Preop/Pacu II [address] [place] [address] Jose De La Fuente MD Chronic systolic congestive heart failure (HCC) (Primary Dx); Preprocedural cardiovascular examination Social History Tobacco Use Types Packs/Day Years [...] suspected to have Coronavirus/COVID-19? No / Unsure 05/28/2022 9:10 AM CDT documented as of this encounter Plan of Treatment Upcoming Encounters Date Type Department Care Team (Late st Contact Info) Description 05/28/2024 9:30 AM CDT Office Visit [facility] - Endocrinology - [place] [address]2 [place] [address] Stacie Lemon MD #[address] [address] 08/30/2024 10:00 AM CDT Office Visit [facility] - Neurology - [place] [address]2 [place] [address] Vickie Stallworth APRN, PHOTOGRAMMETRIC TECHNICIAN #2 [place] [address] documented as of this encounter Results * PROTIME (PT) (PROTHROMBIN TIME) (06/01/2022 10:58 AM CDT) PROTIME-PATIENT 12.8 11.6 - 14.8 sec 06/01/2022 11:33 AM CDT [facility] INR 1.0 0.9 - 1.2 06/01/2022 11:33 AM CDT [facility] Comment: Therapeutic Ranges INR = 2.0-3.0: Venous thromb, atrial fib, pul embolism, tissue heart valve, ami. INR = 2.5-3.5: Mechanical heart valve Critical value for INR is >/= 4.5 Blood Venipuncture / Unknown 06/01/2022 10:58 AM CDT 06/01/2022 11:06 AM CDT Jose Orantes MD HEMATOLOGY ORDERABLES F inal Result [facility] [address] [place] [address] * (ABNORMAL) BASIC METABOLIC PANEL W/ CALCIUM TOTAL (06/01/2022 10:58 AM CDT) SODIUM 136 136 - 144 mmol/L 06/01/2022 11:29 AM CDT [facility] POTASSIUM 5.3(H) 3.5 - 5.1 mmol/L 06/01/2022 11:29 AM CDT [facility] CHLORIDE 101 100 - 110 mmol/L 06/01/2022 11:29 AM CDT [facility] CO2, VENOUS 27 22 - 32 mmol/L 06/01/2022 11:29 AM CDT [facility] ANION GAP 13.3 8.0 - 20.0 mmol/L 06/01/2022 11:29 AM CDT [facility] GLUCOSE 204(H) 70 - 99 mg/dL 06/01/2022 11:29 AM CDT [facility] BUN 24(H) 8 - 23 mg/dL 06/01/2022 11:29 AM CDT [facility] CREATININE, BLOOD 1.36(H) 0.60 - 1.10 mg/dL 06/01/2022 11:29 AM CDT [facility] BUN/CREATININE RATIO 18 12 - 20 ratio 06/01/2022 11:29 AM CDT [facility] CALCIUM 9.9 8.9 - 10.3 mg/dL 06/01/2022 11:29 AM CDT [facility] IS THE PATIENT REQUIRED TO BE FASTING? No 06/01/2022 11:29 AM CDT [facility] GFR, ESTIMATED 39(L) >=60 06/01/2022 11:29 AM CDT [facility] Comment: Creatinine Clearance is the preferred criteria for selecting drug dose adjustments in renally impaired patients. The GFR is provided as additional pertinent clinical information. GFR is reported in mL/min/1.73 sq m. Calculation based on the Chronic Kidney Disease Epidemiology Collaboration (CKD- EPI) equation refit without adjustment for race. GFR, EST. 45(L) >=60 023 11:29 AM CDT [facility] GFR, EST. NONAFRICAN 37(L) >=60 06/01/2022 11:29 AM CDT [facility] Blood Venipuncture / Unknown 06/01/2022 10:58 AM CDT 06/01/2022 11:07 AM CDT us Jose Orantes MD CHEMISTRY ORDERABLES Fi nal Result [facility] #1 [place] [address] documented in this encounter Visit Diagnoses Diagnosis Chronic systolic congestive heart failure (HCC)- Primary Chronic systolic heart failure Preprocedural cardiovascular examination Pre-operative cardiovascular examination documented in this encounter Additional Health Concerns Infection Onset Date Last Indicated Resolved Time Respiratory Rule-Out 07/15/2023 07/15/2023 024 1:25 PM CDT Respiratory Rule-Out 08/23/2023 08/23/2023 024 6:42 AM CDT Assessment Noted Time PHQ-9 Depression Total Score: 0 11/17/19 19 10:00 AM CDT documented as of this encounter Care Teams Dredge Captain Relationship Specialty Start Date End Date Salomón Meehan MD [address] [place] [address] PCP - General Internal Medicine 10/20/14 11/14/23 Silvino [place] MD [address] [place] [address] PCP - General Pediatrics 11/29/23 Sheng Castillo MD [address] [place] [address] Ophthalmology 06/28/19 Kg Syed, ANA MARIAM [address] [place] [address] Consulting Physician Podiatry 01/14/21 Jose De La Fuente MD [address] [place] [address] Consulting Physician Cardiovascular Disease - Cardiology 02/23/22 Pawel Wolfe MD #1 [place] [address] Consulting Physician Neurology 11/04/22 Stacie Lemon MD #[address] [address] Consulting Physician Endocrinology 06/16/23 documented as of this encounter
--- OUTSIDE RECORDS SUMMARY | 2024-04-20 23:34 | XMS_ITS | Encounter Summary ---
Author Organization [facility] Address [address] [place] [address] Phone Care Team Providers Care Stacker Tender Name Role Phone Salomón Meehan MD Primary Care Provider [phone] Sheng Castillo MD Unavailable [phone] Kg Syed DPM Unavailable [phone] Jose De La Fuente MD Unavailable Pawel Wheeler MD Unavailable [phone] Stacie Lemon MD Unavailable Silvino [place] MD Primary Care Provider [phone] Reason for Visit * Reason Comments Medication Refill Encounter Details Date Type Department Care Team (Late st Contact Info) Description 06/02/2020 Refill [facility] [address] [place] [address] Salomón Meehan MD [address] [place] [address] Medication Refill Social History Tobacco [...] Exposure Response Date Recorded In the last month, have you been in contact with someone who was confirmed or suspected to have Coronavirus / COVID-19? No / Unsure 05/06/2020 1:06 PM CDT documented as of this encounter Plan of Treatment Upcoming Encounters Date Type Department Care Team (Late st Contact Info) Description 05/28/2024 9:30 AM CDT Office Visit [facility] - Endocrinology - [place] [address] [place] [address] Stacie Lemon MD #[address] [address] 08/30/2024 10:00 AM CDT Office Visit [facility] - Neurology - [place] [address] [place] [address] Vickie Stallworth APRN, INTERN BRAND [address] [place] [address] documented as of this encounter Visit Diagnoses Not on filedocumented in this encounter Additional Health Concerns Infection Onset Date Last Indicated Resolved Time COVID - 19 12/27/2021 12/27/2021 12/28/2021 8:17 AM ADMITTING INTERVIEWER Respiratory Rule-Out 12/27/2021 12/27/2021 022 12:56 AM ADMITTING INTERVIEWER Respiratory Rule Out - RPA 12/28/2021 12/28/2021 1 02/27/2021 10:34 PM ADMITTING INTERVIEWER RSV 12/28/2021 12/28/2021 01/25/2022 12:1 6 AM ADMITTING INTERVIEWER Respiratory Rule-Out 07/15/2023 07/15/2023 024 1:25 PM CDT Respiratory Rule-Out 08/23/2023 08/23/2023 024 6:42 AM CDT Assessment Noted Time PHQ-9 Depression Total Score: 0 11/17/19 19 10:00 AM CDT documented as of this encounter Care Teams Stacker Tender Relationship Specialty Start Date End Date Salomón Meehan MD [address] [place] [address] PCP - General Internal Medicine 10/20/14 11/14/23 Silvino [place] MD [address] [place] [address] PCP - General Pediatrics 11/29/23 Shneg Castillo MD [address] [place] [address] Ophthalmology 06/28/19 Kg Syed DPM [address] [place] [address] Consulting Physician Podiatry 01/14/21 Jose De La Fuente MD [address] [place] [address] Consulting Physician Cardiovascular Disease - Cardiology 02/23/22 Pawel Wolfe MD #[address] [place] [address] Consulting Physician Neurology 11/04/22 Stacie Lemon MD #[address] [phone] Consulting Physician Endocrinology 06/16/23 documented as of this encounter
--- OUTSIDE RECORDS SUMMARY | 2024-04-20 23:34 | XMS_ITS | Encounter Summary ---
Author Organization [facility] Address [address] [place] [address] Phone Care Team Providers Care Residential Property Tax Appraiser Name Role Phone Salomón Meehan MD Primary Care Provider [phone] Sheng Castillo MD Unavailable [phone] Kg Syed DPM Unavailable [phone] Jose De La Fuente MD Unavailable Pawel Wheeler MD Unavailable Stacie Lemon MD Unavailable Silvino [place] MD Primary Care Provider [phone] Reason for Visit * Reason Comments Medication Refill Encounter Details Date Type Department Care Team (Late st Contact Info) Description 05/06/2021 [facility]ill [facility] #2 [place] [address] Salomón Meehan MD [address] [place] [address] Medication Refill Social History Tobacco Use Types Packs/Day Years Used Date Smoking Tobacco: Never Smokeless Tobacco: Never Alcohol Use Standard Drinks/Week Comments Not Currently 0 (1 standard drink = 0.6 oz pur e alcohol) PHQ-2 Answer Date Recorded Total Score - Questions 1-9 0 09/2021 Sexually Active Control Partners Comments Not Currently [...] have Coronavirus / COVID-19? 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 documented in this encounter Plan of Treatment Upcoming Encounters Date Type Department Care Team (Late st Contact Info) Description 05/28/2024 9:30 AM CDT [facility] Endocrinology - [place] [address] [place] [address] Stacie Lemon MD #[address] [address] 08/30/2024 10:00 AM CDT [facility] - [place] #[address] [place] [address] Vickie Stallworth APRN, REGULATORY ASSOCIATE #[address] [place] [address] documented as of this encounter Visit Diagnoses Not on filedocumented in this encounter Additional Health Concerns Infection Onset Date Last Indicated Resolved Time COVID - 19 12/27/2021 12/27/2021 12/28/2021 8:17 AM BEEF FARMER Respiratory Rule-Out 12/27/2021 12/27/2021 022 12:56 AM BEEF FARMER Respiratory Rule Out - RPA 12/28/2021 12/28/2021 1 02/27/2021 10:34 PM BEEF FARMER RSV 12/28/2021 12/28/2021 01/25/2022 12:1 6 AM BEEF FARMER Respiratory Rule-Out 07/15/2023 07/15/2023 024 1:25 PM CDT Respiratory Rule-Out 08/23/2023 08/23/2023 024 6:42 AM CDT Assessment Noted Time PHQ-9 Depression Total Score: 0 11/17/19 19 10:00 AM CDT documented as of this encounter Care Teams Residential Property Tax Appraiser Relationship Specialty Start Date End Date Salomón Meehan MD [address] [place] [address] PCP - General Internal Medicine 10/20/14 11/14/23 Silvino [place] MD [address] [place] [address] PCP - General Pediatrics 11/29/23 Sheng Castillo MD [address] [place] [address] Ophthalmology 06/28/19 Kg Syed DPM [address] [place] [address] Consulting Physician Podiatry 01/14/21 Jose De La Fuente MD [address] [place] [address] Consulting Physician Cardiovascular Disease - Cardiology 02/23/22 Pawel Wolfe MD #[address] [place] [address] Consulting Physician Neurology 11/04/22 Stacie Lemon MD [address] [place] [address] [address] Consulting Physician Endocrinology 06/16/23 documented as of this encounter
--- OUTSIDE RECORDS SUMMARY | 2024-04-20 23:34 | XMS_ITS | Encounter Summary ---
Author Organization [facility] Address [address] [place] [address] Phone Care Team Providers Care Research Electrician Name Role Phone Salomón Meehan MD Primary Care Provider Sheng Castillo MD Unavailable [phone] Kg Syed DPAgusto Unavailable [phone] Jose De La Fuente MD Unavailable Pawel Wheeler MD Unavailable [phone] Stacie Lemon MD Unavailable Silvino [place] MD Primary Care Provider [phone] Reason for Visit * Reason Comments Medication Refill Encounter Details Date Type Department Care Team (Late st Contact Info) Description 07/30/2023 Refill [facility] - Neurology [facility] #2 [place] [address] Pawel Wolfe MD #2 [place] [address] Medication Refill Social History Tobacco Use Types [...] encounter Miscellaneous Notes * Telephone Encounter - Dali Manrique RN - 08/01/2023 8:19 AM CDT Medication failed the protocol, provider to review and approve the medication order if appropriate. Requested Prescriptions Pending Prescriptions Disp Refills LevETIRAcetam (KEPPRA) 1000 MG Tablet [Pharmacy Med Name: LEVETIRACETAM 1,000 MG TABLET] 180 Tablet1 Sig: Take 1 Tablet by mouth in the morning and at bedtime for 120 days. Not Delegated - Anticonvulsants Excluding Benzodiazepines Protocol Failed - 07/30/2023 7:19 AM Failed - This refill cannot be delegated Passed - Visit with relevant provider in past 12 months or upcoming 90 days Recent Visits Date Type Provider Dept 05/26/23 Office Visit Pawel Wolfe MD [facility] Neurology [place] 04/21/23 Office Visit Hazel Acuña APRN, APPLICATIONS DEVELOPMENT CONSULTANT [facility] 02/08/23 Office Visit Salomón Meehan MD [facility] 11/04/22 Office Visit Pawel Wolfe MD [facility] Neurology [place] [facility] Showing recent visits within past 365 days and meeting all other requirements Future Appointments Date Type Provider Dept 08/15/23 Appointment Salomón Meehan MD [facility] 08/25/23 Appointment Pawel Wolfe MD [facility] Neurology [facility] Showing future appointments within next 90 days and meeting all other requirements documented in this encounter Plan of Treatment Upcoming Encounters Date Type Department Care Team (Late st Contact Info) Description 05/28/2024 9:30 AM CDT [facility] - Endocrinology - [place] [address] [place] [address] Stacie Lemon MD #[address] [address] 08/30/2024 10:00 AM CDT [facility] - [place] #2 [place] [address] Vickie Stallworth, SAND MIXER MACHINE, DIRECTOR SEMICONDUCTOR [address] [place] [address] documented as of this encounter Visit Diagnoses Not on filedocumented in this encounter Additional Health Concerns Infection Onset Date Last Indicated Resolved Time Respiratory Rule-Out 08/23/2023 08/23/2023 024 6:42 AM CDT Assessment Noted Time PHQ-9 Depression Total Score: 0 02/08/19 10:13 AM CASE FITTER documented as of this encounter Care Teams Research Electrician Relationship Specialty Start Date End Date Salomón Meehan MD [address] [place] [address] PCP - General Internal Medicine 10/20/14 11/14/23 Silvino Malagon MD [address] [place] [address] PCP - General Pediatrics 11/29/23 Sheng Castillo MD [address] [place] [address] Ophthalmology 06/28/19 Kg Syed DPM [address] [place] [address] Consulting Physician Podiatry 01/14/21 Jose De La Fuente MD [address] [place] [address] Consulting Physician Cardiovascular Disease - Cardiology 02/23/22 Pawel Wolfe MD #[address] [place] [address] Consulting Physician Neurology 11/04/22 Stacie Lemon MD #[address] [address] Consulting Physician Endocrinology 06/16/23 documented as of this encounter
[2024-04-21] VITALS (9 sets, daily range): BP systolic 118–142; BP diastolic 34–59; PULSE 59–68; RESP 15–18; TEMP 36.3–36.6; O2SAT 95–100; BMI 33.4
--- NOTE | 2024-04-21 02:32 | PC.NURSE ---
Daughter of pt to triage desk reporting pt was having another episode. Pt was unresponsive for approx 10 seconds - this RN unable to obtain/check VS during this episode. Pt aoxbaseline after episode and asking to go home and to bed. Pt taken back to room 10 at this time.
--- NOTE | 2024-04-21 02:50 | ECG_ITS ---
Test Date: 2024-04-21 02:55:42 Measurements Intervals [place] Rate: 64 P: 49 [place]: 199 QRS: -24 QRSD: 160 T: 140 QT: 457 QTc: 472 Interpretive Statements SINUS RHYTHM LEFT BUNDLE BRANCH BLOCK Electronically Signed On 04-22-2024 13:55:04 CDT by Jonel Verma D.O
[2024-04-21 03:06] LABS: Basophils Absolute Auto 0.1 K/mm3 (0.0-0.1); Basophils Percent Auto 0.8 % (0.2-1.2); Eosinophils Absolute Auto 0.3 K/mm3 (0-0.3); Eosinophils Percent Auto 3.7 % (0-4.4); Hematocrit 37.3 % (37.0-47.0); Hemoglobin 12.3 g/dL (12.0-15.0); Immature Granulocyte Absolute 0.05 K/mm3 (0.00-0.031); Immature Granulocyte Percent A 0.6 % (0-0.5); Lymphocytes Absolute Auto 2.59 K/mm3 (0.9-3.2); Mean Corpuscular Hemoglobin 30.6 pg (26-34); Mean Corpuscular Volume 92.8 fl (80-100); Mean Platelet Volume 9.5 fl (7.4-10.4); Monocytes Absolute Auto 0.7 K/mm3 (0.1-0.6); Neutrophils Absolute Auto 5.2 K/mm3 (1.3-6.7); Neutrophils Percent Auto 57.9 % (45.5-73.1); Platelet Count Result 239 k/mm3 (150-375); Red Blood Count 4.02 M/mm3 (4.2-5.4); Red Cell Distribution Width 13.2 % (11.5-14.5); White Blood Count 8.9 K/mm3 (4.5-10.0)
[2024-04-21 03:21] LABS: INR 1.4; Prothrombin Time 17.6 Seconds (11.1-14.7)
--- OUTSIDE RECORDS SUMMARY | 2024-04-21 03:21 | XMS_ITS | Encounter Summary ---
Author Organization [facility] Address [address] [place] [address] Phone Care Team Providers Care Project Portfolio Analyst Name Role Phone Salomón Meehan MD Primary Care Provider [phone] Sheng Castillo MD Unavailable [phone] Kg Syed DPM Unavailable Jose De La Fuente MD Unavailable Pawel Wheeler MD Unavailable [phone] Stacie Lemon MD Unavailable Silvino Malagon MD Primary Care Provider [phone] Reason for Visit * Reason Comments Medication Refill Encounter Details Date Type Department Care Team (Late st Contact Info) Description 08/05/2021 Refill [facility] - Primary Care - [place] [address] [place] [address] Salomón Meehan MD [address] [place] [address] Medication Refill Social History Tobacco [...] AM CDT Office Visit [facility] - Endocrinology - [place] #2 [place] [address] Stacie Lemon MD #[address] [address] 08/30/2024 10:00 AM CDT [facility] - [place] #[address] [place] [address] Vickie Stallworth APRN, FLATTENING MACHINE OPERATOR #[address] [place] [address] documented as of this encounter Visit Diagnoses Not on filedocumented in this encounter Additional Health Concerns Infection Onset Date Last Indicated Resolved Time COVID - 19 12/27/2021 12/27/2021 12/28/2021 8:17 AM TIN FLIPPER Respiratory Rule-Out 12/27/2021 12/27/2021 022 12:56 AM TIN FLIPPER Respiratory Rule Out - RPA 12/28/2021 12/28/2021 1 02/27/2021 10:34 PM TIN FLIPPER RSV 12/28/2021 12/28/2021 01/25/2022 12:1 6 AM TIN FLIPPER Respiratory Rule-Out 07/15/2023 07/15/2023 024 1:25 PM CDT Respiratory Rule-Out 08/23/2023 08/23/2023 024 6:42 AM CDT Assessment Noted Time PHQ-9 Depression Total Score: 0 11/17/19 10:00 AM CDT documented as of this encounter Care Teams Project Portfolio Analyst Relationship Specialty Start Date End Date Salomón Meehan MD [address] [place] [address] PCP - General Internal Medicine 10/20/14 11/14/23 Silvino Malagon MD [address] [place] [address] PCP - General Pediatrics 11/29/23 Sheng Castillo MD [address] [place] [address] Ophthalmology 06/28/19 Kg Syed DPM [address] [place] [address] Consulting Physician Podiatry 01/14/21 Jose De La Fuente MD [address] [place] [address] Consulting Physician Cardiovascular Disease - Cardiology 02/23/22 Pawel Wolfe MD #[address] [place] [address] Consulting Physician Neurology 11/04/22 Stacie Lemon MD [address] [address] Consulting Physician Endocrinology 06/16/23 documented as of this encounter
--- OUTSIDE RECORDS SUMMARY | 2024-04-21 03:21 | XMS_ITS | Encounter Summary ---
Author Organization [facility] Address [address] [place] [address] Phone Care Team Providers Care Charge Account Authorizer Name Role Phone Salomón Meehan MD Primary Care Provider + [phone] Sheng Castillo MD Unavailable [phone] Kg Syed DPM Unavailable [phone] Jose De La Fuente MD Unavailable Pawel Wheeler MD Unavailable [phone] Stacie Lemon MD Unavailable Silvino Malagon MD Primary Care Provider [phone] Encounter Details Date Type Department Care Team (Latest Contact Info) Description 05/27/2022 Transcribe Orders [facility] Preop/Pacu II 1 [place] [address] Jose De La Fuente MD [...] Description 05/28/2024 9:30 AM CDT Office Visit [facility] - Endocrinology - [place] #2 [place] [address] Stacie Lemon MD #[address] [address] 08/30/2024 10:00 AM CDT Office Visit [facility] - Neurology - [place] #2 [place] [address] Vickie Stallworth APRN, SLATE ROOFER [address]2 [place] [address] documented as of this encounter Results * PROTIME (PT) (PROTHROMBIN TIME) (06/01/2022 10:58 AM CDT) PROTIME-PATIENT 12.8 11.6 - 14.8 sec 06/01/2022 11:33 AM CDT [facility] INR 1.0 0.9 - 1.2 06/01/2022 11:33 AM CDT [facility] Comment: Therapeutic Ranges INR = 2.0-3.0: Venous thromb, atrial fib, pul embolism, tissue heart valve, ami. INR = 2.5-3.5: Mechanical heart valve Critical value for INR is >/= 4.5 Blood Venipuncture / Unknown 06/01/2022 10:58 AM CDT 06/01/2022 11:06 AM CDT Jose Orantes MD HEMATOLOGY ORDERABLES F inal Result [facility] [address] [place] [address] * (ABNORMAL) BASIC METABOLIC PANEL W/ CALCIUM TOTAL (06/01/2022 10:58 AM CDT) SODIUM 136 136 - 144 mmol/L 06/01/2022 11:29 AM CDT [facility] POTASSIUM 5.3(H) 3.5 - 5.1 mmol/L 06/01/2022 11:29 AM CDT [facility] CHLORIDE 101 100 - 110 mmol/L 06/01/2022 11:29 AM CDT [facility] CO2, VENOUS 27 22 - 32 mmol/L 06/01/2022 11:29 AM CDT [facility] ANION GAP 13.3 8.0 - 20.0 mmol/L 06/01/2022 11:29 AM CDT [facility] GLUCOSE 204(H) 70 - 99 mg/dL 06/01/2022 11:29 AM CDT [facility] BUN 24(H) 8 - 23 mg/dL 06/01/2022 11:29 AM CDT [facility] CREATININE, BLOOD 1.36(H) 0.60 - 1.10 mg/dL 06/01/2022 11:29 AM CDT [facility] BUN/CREATININE RATIO 18 12 - 20 ratio 06/01/2022 11:29 AM CDT [facility] CALCIUM 9.9 8.9 - 10.3 mg/dL 06/01/2022 11:29 AM CDT [facility] IS THE PATIENT REQUIRED TO BE FASTING? No 06/01/2022 11:29 AM CDT [facility] GFR, ESTIMATED 39(L) >=60 06/01/2022 11:29 AM CDT [facility] Comment: Creatinine Clearance is the preferred criteria for selecting drug dose adjustments in renally impaired patients. The GFR is provided as additional pertinent clinical information. GFR is reported in mL/min/1.73 sq m. Calculation based on the Chronic Kidney Disease Epidemiology Collaboration (CKD- EPI) equation refit without adjustment for race. GFR, EST. 45(L) >=60 023 11:29 AM CDT [facility] GFR, EST. NONAFRICAN 37(L) >=60 06/01/2022 11:29 AM CDT [facility] Blood Venipuncture / Unknown 06/01/2022 10:58 AM CDT 06/01/2022 11:07 AM CDT us Jose Orantes MD CHEMISTRY ORDERABLES Fi nal Result [facility] [address]1 [place] [address] documented in this encounter Visit Diagnoses Diagnosis [...] documented as of this encounter Care Teams Charge Account Authorizer Relationship Specialty Start Date End Date Salomón Meehan MD [address] [place] [address] PCP - General Internal Medicine 10/20/14 11/14/23 Silvino Malagon MD [address] [place] [address] PCP - General Pediatrics 11/29/23 Sheng Castillo MD [address] [place] [address] Ophthalmology 06/28/19 Kg Syed, ANA MARIAM [address] [place] [address] Consulting Physician Podiatry 01/14/21 Jose De La Fuente MD [address] [place] [address] Consulting Physician Cardiovascular Disease - Cardiology 02/23/22 Pawel Wolfe MD #1 [place] [address] Consulting Physician Neurology 11/04/22 Stacie Lemon MD #[address] [address] Consulting Physician Endocrinology 06/16/23 documented as of this encounter
--- OUTSIDE RECORDS SUMMARY | 2024-04-21 03:21 | XMS_ITS | Clinical Summary ---
Author Organization [facility] Address [address] [place], [address] [address] Phone Care Team Providers Care Aircraft Painter Apprentice Name Role Phone Sheng Castillo MD Unavailable [phone] Kg Syed DPAgusto Unavailable Jose De La Fuente MD Unavailable Pawel Wheeler MD Unavailable [phone] Stacie Lemon MD Unavailable Silvino Malagon MD [...] mouth daily. Active Blood Glucose Monitoring Suppl (AddictiveTouch Verio) w/Device KitIndications:T ype 2 diabetes mellitus [...] complication, with long-term current use of insulin ([facility]) Test twice daily. 200 Lancet 3 4 Active gabapentin (NEURONTIN) 100 MG Capsule TAKE 1 CAPSULE BY MOUTH EVERY DAY AT NIGHT 90 Capsule 1 4 Active Glucose Blood (OneTouch Verio) StripIndications :Type 2 diabetes mellitus without complication, with long-term current use of insulin ([facility]) Test three times daily. 200 Each 3 4 Active B-D ULTRAFINE III SHORT PEN 31G X 8 MM MiscIndications: Type 2 diabetes mellitus with diabetic neuropathy, unspecified ([facility]) USE TO INJECT INSULIN FOUR TIMES DAILY [...] Type Department Care Team Description 03/30/2024 Refill [facility] - Primary Care - [place] [address] [place] [address] Salomón Meehan MD Medication Refill 03/01/2024 10:30 AM MANAGER DATA WAREHOUSE Office Visit [facility] - Neurology - [place] [address]2 [place] [address] Pawel Wolfe MD Focal seizure (HCC) (Primary Dx); History of ischemic stroke; Paroxysmal A-fib (HCC); Chronic systolic congestive heart failure (HCC) Discharge Disposition: Discharged to home or Selfcare 03/01/2024 Travel 02/20/2024 9:30 AM MANAGER DATA WAREHOUSE [facility] Visit [facility] - Endocrinology - [place] [address] [place] [address] Stacie Lemon MD Type 2 diabetes mellitus with diabetic polyneuropathy, with long-term current use of insulin (HCC) (Primary Dx); Insulin dose changed (HCC); Class 1 obesity due to excess calories with serious comorbidity and body mass index (BMI) of 31.0 to 31.9 in adult; Medication side effect Discharge Disposition: Discharged to home or Selfcare 02/18/2024 Travel 02/10/2024 Refill [facility] Primary Care - [place] [address] [place] [address] Salomón Meehan MD Medication Refill [...] Valent 0 Pneumococcal conjugate PCV20 , polysaccharide XKC082 conjugate, adjuvant, PF 01/11/2024 RSV, Bivalent, Protein [...] Comments Blood Pressure 118/68 03/01/2024 10:21 AM MANAGER DATA WAREHOUSE Pulse 62 03/01/2024 10:21 AM MANAGER DATA WAREHOUSE Temperature 36.3 C (97.3 F) 03/01/2024 10:21 AM MANAGER DATA WAREHOUSE Respiratory Rate 16 03/01/2024 10:2 1 AM MANAGER DATA WAREHOUSE Oxygen Saturation 96% 03/01/2024 10: 21 AM MANAGER DATA WAREHOUSE Inhaled Oxygen Concentration - - Weight 89.3 kg (196 lb 12.8 oz) 025 10:21 AM MANAGER DATA WAREHOUSE Height 167.6 cm (5' 6 ) 03/01/2024 10:2 1 AM MANAGER DATA WAREHOUSE Body Mass Index 31.76 03/01/2024 10:21 AM MANAGER DATA WAREHOUSE Plan of Treatment Upcoming Encounters Date Type Department Care Team (Late st Contact Info) Description 05/28/2024 9:30 AM CDT [facility] - Endocrinology - [place] [address] [place] [address] Stacie Lemon MD [address] [address] 08/30/2024 10:00 AM CDT [facility] - [place] [address] [place] [address] Vickie Stallworth APRN, DENTAL LABORATORY MANAGER [address] [place] [address] Health Maintenance Due Date Last Done Comments [...] POCT GLYCOSYLATED HEMOGLOBIN Routine 02/20/2024 9:13 AM MANAGER DATA WAREHOUSE Type 2 diabetes mellitus with diabetic polyneuropathy, with long-term current use of insulin (HCC) CMP (COMPREHENSIVE METABOLIC PANEL) 09/10/2023 12:00 AM CDT HEPATITIS C ANTIBODY Routine 02/08/2023 10:45 AM MANAGER DATA WAREHOUSE Encounter for hepatitis C screening test for low risk patient [facility] DILATED EYE EXAM 01/14/2022 1 2:00 AM MANAGER DATA WAREHOUSE ERIN BONE DENSITOMETRY AXIAL SKELETON Routine 04/09/2021 1:42 PM MANAGER DATA WAREHOUSE Menopausal and postmenopausal disorder Encounter for screening for osteoporosis from Last 3 Months or Most Recently Relevant to Health Maintenance Results * (ABNORMAL) POCT GLYCOSYLATED HEMOGLOBIN (02/20/2024 9:13 AM MANAGER DATA WAREHOUSE) HGB-A1C 8.7(A) 4 - 6 % Blood 02/20/2024 9:13 AM MANAGER DATA WAREHOUSE us Stacie Lemon MD POINT OF CARE TESTING (MANUAL) F inal Result * CMP (COMPREHENSIVE METABOLIC PANEL) (09/10/2023 12:00 AM CDT) 09/10/2023 us Provider Scan CHEMISTRY ORDERABLES Final Resul t SCAN * HEPATITIS C ANTIBODY (02/08/2023 10:45 AM MANAGER DATA WAREHOUSE) hepatitis C antibody 0.09 <1 S/[facility] [id number] B 02/08/2023 9:45 PM MANAGER DATA WAREHOUSE [facility] Comment: Signal/Cutoff ratio < 0.79 is Nondetected Signal/Cutoff ratio 0.80-0.99 is Grayzone Signal/Cutoff ratio > 0.99 is Detected Supplemental assays are recommended if signal/cutoff ratio is >/=1.00. Signal/cutoff ratio result >/= 5.00 is 97% predictive of positivity for recombinant immunoblot assay (RIBA) and will be reported to the [place] Department of Public Health as required. Blood Venipuncture / Unknown 02/08/2023 10:45 AM MANAGER DATA WAREHOUSE 02/08/2023 10:45 AM MANAGER DATA WAREHOUSE us Salomón Meehan MD CHEMISTRY ORDERABLES Arianne l Result [facility] [address] [place] [address], [place] * HM DILATED EYE EXAM (01/14/2022 12:00 AM MANAGER DATA WAREHOUSE) 01/14/2022 us Not On File Provider PROCEDURE/MINOR SURGICAL OR DERABLES Final Result SCAN * [facility] BONE DENSITOMETRY AXIAL SKELETON (04/09/2021 1:42 PM MANAGER DATA WAREHOUSE) Anatomical Region Laterality Modality BODY N/A Other 04/09/2021 8:13 PM MANAGER DATA WAREHOUSE Impressions 04/09/2021 8:15 PM MANAGER DATA WAREHOUSE IMPRESSION: Normal bone mineral density by WHO [...] of Osteoporosis (http://www.nof.org/professionals/clinical-guidelines) Narrative 04/09/2021 8:15 PM MANAGER DATA WAREHOUSE EXAM DESCRIPTION: [facility] BONE DENSITOMETRY AXIAL SKELETON REASON FOR STUDY: Post-menopausal female, screening for osteoporosis. Delivery And Mail Sorter/Model: Boxed (S/N [id number]) CLINICAL INFORMATION: Current height: 65 inches Maximum [...] Nik Arrington M.D. AB: AB Report ID: [id number] Reading Location: [place] [address] Procedure Note Nik Arrington MD - 04/09/2021 EXAM DESCRIPTION: ERIN BONE DENSITOMETRY AXIAL SKELETON REASON FOR STUDY: Post-menopausal female, screening for osteoporosis. Delivery And Mail Sorter/Model: Boxed (S/N [id number]) CLINICAL INFORMATION: Current height: 65 inches Maximum [...] Electronically signed by Nik HILL: Report ID: [id number] Reading Location: [id number] IMPRESSION: Normal bone mineral density by WHO [...] and Treatment of Osteoporosis (http://www.nof.org/professionals/clinical-guidelines) [facility] IMG DEXA ORDERABLES Arianne angel Result from Last 3 Months or Most Recently Relevant to Health Maintenance [facility] Advance Directives Documents on File Type Date Recorded Patient Machine Setter Automatic Expl anation POLST/POST/MD DNR 04/29/2023 11:04 AM POLS T, 04/21/2023 [...] measures to stabilize the patient. Care Teams Aircraft Painter Apprentice Relationship Specialty Start Date End Date Silvino Malagon MD [address] [place] [address] PCP - General Pediatrics 11/29/23 Sheng Castillo MD [address] [place] [address] Ophthalmology 06/28/19 Kg Syed DPM [address] [place] [address] Consulting Physician Podiatry 01/14/21 Jose De La Fuente MD [address] [place] [address] Consulting Physician Cardiovascular Disease - Cardiology 02/23/22 Pawel Wolfe MD #1 [place] [address] Consulting Physician Neurology 11/04/22 Stacie Lemon MD #[address] [phone] Consulting Physician Endocrinology 06/16/23
--- OUTSIDE RECORDS SUMMARY | 2024-04-21 03:21 | XMS_ITS | Encounter Summary ---
Author Organization [facility] Address [address] [place] [address] Phone Care Team Providers Care Rfid Systems Architect Name Role Phone Salomón Meehan MD Primary Care Provider [phone] Sheng Castillo MD Unavailable [phone] Kg Syed DPM Unavailable Jose De La Fuente MD Unavailable Pawel Wheeler MD Unavailable [phone] Staice Lemon MD Unavailable Silvino Malagon MD Primary Care Provider [phone] Reason for Visit * Reason Comments Medication Refill Encounter Details Date Type Department Care Team (Late st Contact Info) Description 10/06/2020 Refill [facility] [address] [place] [address] Salomón Meehan MD [address] [place] [address] Medication Refill Social History Tobacco [...] Description 05/28/2024 9:30 AM CDT Office Visit [facility] Medical [facility] - Endocrinology - [place] [address]2 [place] [address] Stacie Lemon MD #[address] [place] [address] 08/30/2024 10:00 AM CDT Office Visit [facility] - Neurology - [place] [address] [place] [address] Vickie Stallworth, PRINCIPAL TECHNICAL WRITER, TAPE FOLDING MACHINE OPERATOR [address] [place] [address] documented as of this encounter Visit Diagnoses Not on filedocumented in this encounter Additional Health Concerns Infection Onset Date Last Indicated Resolved Time COVID - 19 12/27/2021 12/27/2021 12/28/2021 8:17 AM BAR TACKER Respiratory Rule-Out 12/27/2021 12/27/2021 022 12:56 AM BAR TACKER Respiratory Rule Out - RPA 12/28/2021 12/28/2021 1 02/27/2021 10:34 PM BAR TACKER RSV 12/28/2021 12/28/2021 01/25/2022 12:1 6 AM BAR TACKER Respiratory Rule-Out 07/15/2023 07/15/2023 024 1:25 PM CDT Respiratory Rule-Out 08/23/2023 08/23/2023 024 6:42 AM CDT Assessment Noted Time PHQ-9 Depression Total Score: 0 11/17/19 10:00 AM CDT documented as of this encounter Care Teams Rfid Systems Architect Relationship Specialty Start Date End Date Salomón Meehan MD [address] [place] [address] PCP - General Internal Medicine 10/20/14 11/14/23 Silvino Malagon MD [address] [place] [address] PCP - General Pediatrics 11/29/23 Sheng Castillo MD [address] [place] [address] Ophthalmology 06/28/19 Kg Syed DPM [address] [place] [address] Consulting Physician Podiatry 01/14/21 Jose De La Fuente MD [address] [place] [address] Consulting Physician Cardiovascular Disease - Cardiology 02/23/22 Pawel Wolfe MD [address] [place] [address] Consulting Physician Neurology 11/04/22 Stacie Lemon MD #[address] [address] Consulting Physician Endocrinology 06/16/23 documented as of this encounter
--- OUTSIDE RECORDS SUMMARY | 2024-04-21 03:21 | XMS_ITS | Encounter Summary ---
Author Organization [facility] Address [address] [place] [address] Phone Care Team Providers Care Electrotyper Helper Name Role Phone Salomón Meehan MD Primary Care Provider [phone] Sheng Castillo MD Unavailable [phone] Kg Syed DPM Unavailable Jose De La Fuente MD Unavailable Pawel Wheeler MD Unavailable [phone] Stacie Lemon MD Unavailable Silvino Malagon MD Primary Care Provider [phone] Reason for Visit * Reason Comments Medication Refill Encounter Details Date Type Department Care Team (Late st Contact Info) Description 02/28/2022 Refill [facility] - Primary Care - [place] [address] [place] [address] Salomón Meehan MD [address] [place] [address] Medication Refill Social History Tobacco [...] Coronavirus/COVID-19? No / Unsure 02/25/2022 1:16 PM BUSINESS EDUCATION PROFESSOR documented as of this encounter Miscellaneous Notes * Telephone Encounter - Pepper Godinez RN - 03/01/2022 9:12 AM BUSINESS EDUCATION PROFESSOR Refill requested too soon. NESS EDUCATION PROFESSOR documented in this encounter Plan of Treatment Upcoming Encounters Date Type Department Care Team (Late st Contact Info) Description 05/28/2024 9:30 AM CDT Office Visit [facility] - Endocrinology - [place] [address] [place] [address] Stacie Lemon MD #[address] [address] 08/30/2024 10:00 AM CDT Office Visit [facility] - Neurology - [place] [address] [place] [address] Vickie Stallworth APRN, BRANCH CREDIT COUNSELOR #[address] [place] [address] documented as of this encounter Visit Diagnoses Not on filedocumented in this encounter Additional Health Concerns Infection Onset Date Last Indicated Resolved Time Respiratory Rule-Out 07/15/2023 07/15/2023 024 1:25 PM CDT Respiratory Rule-Out 08/23/2023 08/23/2023 024 6:42 AM CDT Assessment Noted Time PHQ-9 Depression Total Score: 0 11/17/19 19 10:00 AM CDT documented as of this encounter Care Teams Electrotyper Helper Relationship Specialty Start Date End Date Salomón Meehan MD [address] [place] [address] PCP - General Internal Medicine 10/20/14 11/14/23 Silvino Malagon MD [address] [place] [address] PCP - General Pediatrics 11/29/23 Sheng Castillo MD [address] [place] [address] Ophthalmology 06/28/19 Kg Syed DPM [address] [place] [address] Consulting Physician Podiatry 01/14/21 Jose De La Fuente MD [address] [place] [address] Consulting Physician Cardiovascular Disease - Cardiology 02/23/22 Pawel Wolfe MD #[address] [place] [address] Consulting Physician Neurology 11/04/22 Stacie Lemon MD #[address] [phone] Consulting Physician Endocrinology 06/16/23 documented as of this encounter
--- OUTSIDE RECORDS SUMMARY | 2024-04-21 03:21 | XMS_ITS | Encounter Summary ---
Author Organization [facility] Address [address] [place] [address] Phone Care Team Providers Care Weekday Babysitter Name Role Phone Salomón Meehan MD Primary Care Provider [phone] Sheng Castillo MD Unavailable [phone] Kg Syed DPM Unavailable [phone] Jose De La Fuente MD Unavailable Pawel Wheeler MD Unavailable [phone] Stacie Lemon MD Unavailable Silvino Malagon MD Primary Care Provider [phone] Reason for Visit * Reason Comments Medication Refill Encounter Details Date Type Department Care Team (Late st Contact Info) Description 11/14/20[facility] - [place] [address] [place] [address] Salomón Meehan MD [address] [place] [address] Medication Refill Social History Tobacco [...] discontinued on 04/21/2023 by Hazel Acuña APRN, REGULATORY LAW SPECIALIST documented in this encounter Plan of Treatment Upcoming Encounters Date Type Department Care Team (Late st Contact Info) Description 05/28/2024 9:30 AM CDT Office Visit [facility] - Endocrinology - [place] [address] [place] [address] Stacie Lemon MD #[address] [address] 08/30/2024 10:00 AM CDT [facility] - Neurology - [place] [address] [place] [address] Vickie Stallworth APRN, CASH APPLICATIONS ANALYST #[address] [place] [address] documented as of this encounter Visit Diagnoses Diagnosis Elevated brain natriuretic peptide (BNP) level Other nonspecific findings on examination of blood documented in this encounter Additional Health Concerns Assessment Noted Time PHQ-9 Depression Total Score: 0 02/08/19 24 10:13 AM WASH TANK TENDER documented as of this encounter Care Teams Weekday Babysitter Relationship Specialty Start Date End Date Salomón Meehan MD [address] [place] [address] PCP - General Internal Medicine 10/20/14 11/14/23 Silvino Malagon MD [address] [place] [address] PCP - General Pediatrics 11/29/23 Sheng Castillo MD [address] [place] [address] Ophthalmology 06/28/19 Kg Syed DPM [address] [place] [address] Consulting Physician Podiatry 01/14/21 Jose De La Fuente MD [address] [place] [address] Consulting Physician Cardiovascular Disease - Cardiology 02/23/22 Pawel Wolfe MD #[address] [place] [address] Consulting Physician Neurology 11/04/22 Stacie Lemon MD #[address] [address] Consulting Physician Endocrinology 06/16/23 documented as of this encounter
--- OUTSIDE RECORDS SUMMARY | 2024-04-21 03:21 | XMS_ITS | Encounter Summary ---
Author Organization [facility] Address [address] [place] [address] Phone Care Team Providers Care Log Deck Tender Name Role Phone Salomón Meehan MD Primary Care Provider [phone] Sheng Castillo MD Unavailable [phone] Kg Syed DPM Unavailable Jose De La Fuente MD Unavailable Pawel Wheeler MD Unavailable [phone] Stacie Lemon MD Unavailable Silvino Malagon MD Primary Care Provider [phone] Reason for Visit * Reason Comments Medication Refill Encounter Details Date Type Department Care Team (Late st Contact Info) Description 10/29/2020 Refill [facility] [address] [place] [address] Salomón Meehan MD [address] [place] [address] Medication Refill Social History Tobacco [...] CDT Office Visit [facility] Medical [facility] - Endocrinology - [place] [address] [place] [address] Stacie Lemon MD #[address] [place] [address] 08/30/2024 10:00 AM CDT Office Visit [facility] - Neurology - [place] #[address] [place] [address] Vickie Stallworth, AIRPLANE FUELER, SULFUR BURNER [address] [place] [address] documented as of this encounter Visit Diagnoses Not on filedocumented in this encounter Additional Health Concerns Infection Onset Date Last Indicated Resolved Time COVID - 19 12/27/2021 12/27/2021 12/28/2021 8:17 AM COMMERCIAL INSTALLER Respiratory Rule-Out 12/27/2021 12/27/2021 022 12:56 AM COMMERCIAL INSTALLER Respiratory Rule Out - RPA 12/28/2021 12/28/2021 1 02/27/2021 10:34 PM COMMERCIAL INSTALLER RSV 12/28/2021 12/28/2021 01/25/2022 12:1 6 AM COMMERCIAL INSTALLER Respiratory Rule-Out 07/15/2023 07/15/2023 024 1:25 PM CDT Respiratory Rule-Out 08/23/2023 08/23/2023 024 6:42 AM CDT Assessment Noted Time PHQ-9 Depression Total Score: 0 11/17/19 10:00 AM CDT documented as of this encounter Care Teams Log Deck Tender Relationship Specialty Start Date End Date Salomón Meehan MD [address] [place] [address] PCP - General Internal Medicine 10/20/14 11/14/23 Silvino Malagon MD [address] [place] [address] PCP - General Pediatrics 11/29/23 Sheng Castillo MD [address] [place] [address] Ophthalmology 06/28/19 Kg Syed DPM [address] [place] [address] Consulting Physician Podiatry 01/14/21 Jose De La Fuente MD [address] [place] [address] Consulting Physician Cardiovascular Disease - Cardiology 02/23/22 Pawel Wolfe MD #[address] [place] [address] Consulting Physician Neurology 11/04/22 Stacie Lemon MD #[address] [address] Consulting Physician Endocrinology 06/16/23 documented as of this encounter
--- OUTSIDE RECORDS SUMMARY | 2024-04-21 03:21 | XMS_ITS | Encounter Summary ---
Author Organization [facility] Address [address] [place] [address] Phone Care Team Providers Care Residential Treatment Staff Name Role Phone Salomón Meehan MD Primary Care Provider [phone] Sheng Castillo MD Unavailable [phone] Kg Syed DPM Unavailable [phone] Jose De La Fuente MD Unavailable Pawel Wheeler MD Unavailable [phone] Stacie Lemon MD Unavailable Silvino Malagon MD Primary Care Provider [phone] Reason for Visit * Reason Comments Medication Refill Encounter Details Date Type Department Care Team (Late st Contact Info) Description 10/28/2023 Refill [facility] - Primary Care - [place] [address] [place] [address] Salomón Meehan MD [address] [place] [address] Medication Refill Social History Tobacco [...] 05/28/2024 9:30 AM CDT [facility] - Endocrinology - [place] #2 [place] [address] Stacie Lemon MD #[address] [address] 08/30/2024 10:00 AM CDT Office Visit [facility] - Neurology - [place] #2 [place] [address] Vickie Stallworth APRN, BARK PEELER [address]2 [place] [address] documented as of this encounter Visit Diagnoses Diagnosis Elevated brain natriuretic peptide (BNP) level Other nonspecific findings on examination of blood documented in this encounter Additional Health Concerns Assessment Noted Time PHQ-9 Depression Total Score: 0 02/08/19 10:13 AM CHEMICAL RECLAMATION EQUIPMENT OPERATOR documented as of this encounter Care Teams Residential Treatment Staff Relationship Specialty Start Date End Date Salomón Meehan MD [address] [place] [address] PCP - General Internal Medicine 10/20/14 11/14/23 Silvino Malagon MD [address] [place] [address] PCP - General Pediatrics 11/29/23 Sheng Castillo MD [address] [place] [address] Ophthalmology 06/28/19 Kg Syed DPM [address] [place] [address] Consulting Physician Podiatry 01/14/21 Jose De La Fuente MD [address] [place] [address] Consulting Physician Cardiovascular Disease - Cardiology 02/23/22 Pawel Wolfe MD #1 [place] [address] Consulting Physician Neurology 11/04/22 Stacie Lemon MD #[address] [phone] Consulting Physician Endocrinology 06/16/23 documented as of this encounter
--- OUTSIDE RECORDS SUMMARY | 2024-04-21 03:21 | XMS_ITS | Clinical Summary ---
Author Organization [facility] Facility Address [address] [address] Care Team Providers Care Sort Operations Supervisor Name Role Phone Salomón Meehan MD Primary Care Provider [phone] Medications aspirin (ST OLYA) 81 MG EC [...] 1 (one) time each day Active multivitamin-ir yl-ndephjln-xqv ic acid (THERAPEUTIC-M) tablet Take 1 tablet [...] Recently Relevant to Health Maintenance Care Teams Sort Operations Supervisor Relationship Specialty Start Date End Date Salomón Meehan MD [address] [place] [address] PCP - General Internal Medicine 04/05/23
--- OUTSIDE RECORDS SUMMARY | 2024-04-21 03:21 | XMS_ITS | Encounter Summary ---
Author Organization [facility] Address [address] [place] [address] Phone Care Team Providers Care Marine Cargo Specialist Name Role Phone Salomón Meehan MD Primary Care Provider [phone] Sheng Castillo MD Unavailable [phone] Kg Syed DPM Unavailable [phone] Jose De La Fuente MD Unavailable Pawel Wheeler MD Unavailable Stacie Lemon MD Unavailable Silvino Malagon MD Primary Care Provider [phone] Reason for Visit * Reason Comments Medication Refill Encounter Details Date Type Department Care Team (Late st Contact Info) Description 05/06/2021 [facility]ill [facility] #2 [place] [address] Salomón Meehan MD [address] [place] [address] Medication Refill Social History Tobacco [...] COVID-19? No / Unsure 04/09/2021 12:52 PM RETAIL LOSS PREVENTION SPECIALIST documented as of this encounter Miscellaneous Notes * Telephone Encounter - Ilana Funes RN - 05/07/2021 8:02 AM CDT Medication approved and signed per standing order protocol. documented in this encounter Plan of Treatment Upcoming Encounters Date Type Department Care Team (Late st Contact Info) Description 05/28/2024 9:30 AM CDT [facility] - Endocrinology - [place] [address]2 [place] [address] Stacie Lemon MD #[address] [address] 08/30/2024 10:00 AM CDT [facility] - [place] #2 [place] [address] Vickie Stallworth APRN, LONG GOODS DRIER [address]2 [place] [address] documented as of this encounter Visit Diagnoses Not on filedocumented in this encounter Additional Health Concerns Infection Onset Date Last Indicated Resolved Time COVID - 19 12/27/2021 12/27/2021 12/28/2021 8:17 AM RETAIL LOSS PREVENTION SPECIALIST Respiratory Rule-Out 12/27/2021 12/27/2021 022 12:56 AM RETAIL LOSS PREVENTION SPECIALIST Respiratory Rule Out - RPA 12/28/2021 12/28/2021 1 02/27/2021 10:34 PM RETAIL LOSS PREVENTION SPECIALIST RSV 12/28/2021 12/28/2021 01/25/2022 12:1 6 AM RETAIL LOSS PREVENTION SPECIALIST Respiratory Rule-Out 07/15/2023 07/15/2023 024 1:25 PM CDT Respiratory Rule-Out 08/23/2023 08/23/2023 024 6:42 AM CDT Assessment Noted Time PHQ-9 Depression Total Score: 0 11/17/19 19 10:00 AM CDT documented as of this encounter Care Teams Marine Cargo Specialist Relationship Specialty Start Date End Date Salomón Meehan MD [address] [place] [address] PCP - General Internal Medicine 10/20/14 11/14/23 Silvino Malagon MD [address] [place] [address] PCP - General Pediatrics 11/29/23 Sheng Castillo MD [address] [place] [address] Ophthalmology 06/28/19 Kg Syed DPM [address] [place] [address] Consulting Physician Podiatry 01/14/21 Jose De La Fuente MD [address] [place] [address] Consulting Physician Cardiovascular Disease - Cardiology 02/23/22 Pawel Wolfe MD #1 [place] [address] Consulting Physician Neurology 11/04/22 Stacie Lemon MD #[address] [place] [address] [address] Consulting Physician Endocrinology 06/16/23 documented as of this encounter
--- OUTSIDE RECORDS SUMMARY | 2024-04-21 03:21 | XMS_ITS | Encounter Summary ---
Author Organization [facility] Address [address] [place] [address] Phone Care Team Providers Care Pier Hand Name Role Phone Salomón Meehan MD Primary Care Provider [phone] Sheng Castillo MD Unavailable [phone] Kg Syed DPM Unavailable [phone] Jose De La Fuente MD Unavailable Pawel Wheeler MD Unavailable [phone] Stacie Lemon MD Unavailable Silvino Malagon MD Primary Care Provider [phone] Reason for Visit * Reason Comments Medication Refill Encounter Details Date Type Department Care Team (Late st Contact Info) Description [facility] - [place] [address] [place] [address] Salomón Meehan MD [address] [place] [address] Medication Refill Social History Tobacco [...] discontinued on 04/21/2023 by Hazel Acuña APRN, SHOP FIRER/FIREMAN for the following reason: Reorder. documented in this encounter Plan of Treatment Upcoming Encounters Date Type Department Care Team (Late st Contact Info) Description 05/28/2024 9:30 AM CDT Office Visit [facility] - Endocrinology - [place] #2 [place] [address] Stacie Lemon MD #[address] [address] 08/30/2024 10:00 AM CDT Office Visit [facility] - Neurology - [place] #2 [place] [address] Vickie Stallworth APRN, BOILER SHOP SUPERVISOR [address] [place] [address] documented as of this encounter Visit Diagnoses Diagnosis Elevated brain natriuretic peptide (BNP) level Other nonspecific findings on examination of blood documented in this encounter Additional Health Concerns Infection Onset Date Last Indicated Resolved Time Respiratory Rule-Out 07/15/2023 07/15/2023 024 1:25 PM CDT Respiratory Rule-Out 08/23/2023 08/23/2023 024 6:42 AM CDT Assessment Noted Time PHQ-9 Depression Total Score: 0 02/08/19 10:13 AM OUTSIDE MACHINIST HELPER documented as of this encounter Care Teams Pier Hand Relationship Specialty Start Date End Date Salomón Meehan MD [address] [place] [address] PCP - General Internal Medicine 10/20/14 11/14/23 Silvino Malagon MD [address] [place] [address] PCP - General Pediatrics 11/29/23 Sheng Castillo MD [address] [place] [address] Ophthalmology 06/28/19 Kg Syed DPM [address] [place] [address] Consulting Physician Podiatry 01/14/21 Jose De La Fuente MD [address] [place] [address] Consulting Physician Cardiovascular Disease - Cardiology 02/23/22 Pawel Wolfe MD #1 [place] [address] Consulting Physician Neurology 11/04/22 Stacie Lemon MD #[address] [address] Consulting Physician Endocrinology 06/16/23 documented as of this encounter
--- OUTSIDE RECORDS SUMMARY | 2024-04-21 03:21 | XMS_ITS | Encounter Summary ---
Author Organization [facility] Address [address] [place] [address] Phone Care Team Providers Care Program Associate Name Role Phone Salomón Meehan MD Primary Care Provider [phone] Sheng Castillo MD Unavailable [phone] Kg Syed DPM Unavailable [phone] Jose De La Fuente MD Unavailable Pawel Wheeler MD Unavailable [phone] Stacie Lemon MD Unavailable Silvino Malagon MD Primary Care Provider [phone] Reason for Visit * Reason Comments Medication Refill Encounter Details Date Type Department Care Team (Late st Contact Info) Description 11/09/2020 Refill [facility] - Primary Care - [place] [address] [place] [address] Salomón Meehan MD [address] [place] [address] Medication Refill Social History Tobacco [...] Description 05/28/2024 9:30 AM CDT Office Visit [facility] - Endocrinology - [place] #2 [place] [address] Stacie Lemon MD #[address] [address] 08/30/2024 10:00 AM CDT Office Visit [facility] - Neurology [facility] #2 [place] [address] Vickie Stallworth APRN, PLUG MAKER [address]2 [place] [address] documented as of this encounter Visit Diagnoses Not on filedocumented in this encounter Additional Health Concerns Infection Onset Date Last Indicated Resolved Time COVID - 19 12/27/2021 12/27/2021 12/28/2021 8:17 AM BILLING COLLECTIONS SPECIALIST Respiratory Rule-Out 12/27/2021 12/27/2021 022 12:56 AM BILLING COLLECTIONS SPECIALIST Respiratory Rule Out - RPA 12/28/2021 12/28/2021 1 02/27/2021 10:34 PM BILLING COLLECTIONS SPECIALIST RSV 12/28/2021 12/28/2021 01/25/2022 12:1 6 AM BILLING COLLECTIONS SPECIALIST Respiratory Rule-Out 07/15/2023 07/15/2023 024 1:25 PM CDT Respiratory Rule-Out 08/23/2023 08/23/2023 024 6:42 AM CDT Assessment Noted Time PHQ-9 Depression Total Score: 0 11/17/19 10:00 AM CDT documented as of this encounter Care Teams Program Associate Relationship Specialty Start Date End Date Salomón Meehan MD [address] [place] [address] PCP - General Internal Medicine 10/20/14 11/14/23 Silvino Malagon MD [address] [place] [address] PCP - General Pediatrics 11/29/23 Sheng Castillo MD [address] [place] [address] Ophthalmology 06/28/19 Kg Syed DPM [address] [place] [address] Consulting Physician Podiatry 01/14/21 Jose De La Fuente MD [address] [place] [address] Consulting Physician Cardiovascular Disease - Cardiology 02/23/22 Pawel Wolfe MD [address] [place] [address] Consulting Physician Neurology 11/04/22 Stacie Lemon MD [address] [address] Consulting Physician Endocrinology 06/16/23 documented as of this encounter
--- OUTSIDE RECORDS SUMMARY | 2024-04-21 03:21 | XMS_ITS | Encounter Summary ---
Author Organization [facility] Address [address] [place] [address] Phone Care Team Providers Care Driving Teacher Name Role Phone Salomón Meehan MD Primary Care Provider [phone] Sheng Castillo MD Unavailable [phone] Kg Syed DPM Unavailable Jose De La Fuente MD Unavailable Pawel Wheeler MD Unavailable [phone] Stacie Lemon MD Unavailable Silvino Malagon MD Primary Care Provider [phone] Reason for Visit * Reason Comments Medication Refill Encounter Details Date Type Department Care Team (Late st Contact Info) Description 06/02/2020 Refill [facility] [address] [place] [address] Salomón Meehan MD [address] [place] [address] Medication Refill Social History [...] 05/28/2024 9:30 AM CDT Office Visit [facility] - Endocrinology - [place] #2 [place] [address] Stacie Lemon MD #[address] [address] 08/30/2024 10:00 AM CDT Office Visit [facility] - Neurology - [place] #2 [place] [address] Vickie Stallworth APRN, STOGY MAKER #[address] [place] [address] documented as of this encounter Visit Diagnoses Not on filedocumented in this encounter Additional Health Concerns Infection Onset Date Last Indicated Resolved Time COVID - 19 12/27/2021 12/27/2021 12/28/2021 8:17 AM REFINERY OPERATOR Respiratory Rule-Out 12/27/2021 12/27/2021 022 12:56 AM REFINERY OPERATOR Respiratory Rule Out - RPA 12/28/2021 12/28/2021 1 02/27/2021 10:34 PM REFINERY OPERATOR RSV 12/28/2021 12/28/2021 01/25/2022 12:1 6 AM REFINERY OPERATOR Respiratory Rule-Out 07/15/2023 07/15/2023 024 1:25 PM CDT Respiratory Rule-Out 08/23/2023 08/23/2023 024 6:42 AM CDT Assessment Noted Time PHQ-9 Depression Total Score: 0 11/17/19 19 10:00 AM CDT documented as of this encounter Care Teams Driving Teacher Relationship Specialty Start Date End Date Salomón Meehan MD [address] [place] [address] PCP - General Internal Medicine 10/20/14 11/14/23 Silvino Malagon MD [address] [place] [address] PCP - General Pediatrics 11/29/23 Sheng Castillo MD [address] [place] [address] Ophthalmology 06/28/19 Kg Syed DPM [address] [place] [address] Consulting Physician Podiatry 01/14/21 Jose De La Fuente MD [address] [place] [address] Consulting Physician Cardiovascular Disease - Cardiology 02/23/22 Pawel Wolfe MD #1 [place] [address] Consulting Physician Neurology 11/04/22 Stacie Lemon MD #[address] [phone] Consulting Physician Endocrinology 06/16/23 documented as of this encounter
--- OUTSIDE RECORDS SUMMARY | 2024-04-21 03:21 | XMS_ITS | Encounter Summary ---
Author Organization [facility] Address [address] [place] [address] Phone Care Team Providers Care Tobacco Dipper Name Role Phone Salomón Meehan MD Primary Care Provider [phone] Sheng Castillo MD Unavailable [phone] Kg Syed DPM Unavailable [phone] Jose De La Fuente MD Unavailable Pawel Wheeler MD Unavailable [phone] Stacie Lemon MD Unavailable Silvino Malagon MD Primary Care Provider [phone] Reason for Visit * Reason Comments Medication Refill Encounter Details Date Type Department Care Team (Late st Contact Info) Description 05/19/2023 Refill [facility] - Primary Care - [place] [address] [place] [address] Salomón Meehan MD [address] [place] [address] Medication Refill Social History Tobacco [...] AM CDT Medication[facility]s) [facility] Refill Standing Order for Pediatricand Adult Patients. Requested Prescriptions Pending Prescriptions Disp Refills Insulin Pen Needle (B-D ULTRAFINE III SHORT PEN) 31G X 8 MM Misc [Pharmacy Med Name: BD UF SHORT PEN NEEDLE [id number]] 100 Pen Needle 1 Sig: USE TO INJECT INSULIN FOUR TIMES DAILY Diabetic Supplies Protocol Passed - 05/19/2023 11:46 AM Passed - Visit with relevant provider in past 6 months Recent Visits Date Type Provider Dept 04/21/23 Office Visit Hazel Acuña APRN, NURSE PRACTITIONER HOME ASSESSMENTS [facility] 02/08/23 Office Visit Salomón Meehan MD [facility] Showing recent visits within past 182 days and meeting all other requirements Future Appointments Date Type Provider Dept 08/15/23 Appointment Salomón Meehan MD [facility] Showing future appointments within next 90 days and meeting all other requirements documented in this encounter Plan of Treatment Upcoming Encounters Date Type Department Care Team (Late st Contact Info) Description 05/28/2024 9:30 AM CDT Office Visit [facility] - Endocrinology - [place] [address] [place] [address] Stacie Lemon MD [address] [place] [address] [address] 08/30/2024 10:00 AM CDT Office Visit [facility] - Neurology - [place] #[address] [place] [address] Vickie Stallworth APRN, TANDEM MILL OPERATOR #2 [facility] [address] documented as of this encounter Visit Diagnoses Diagnosis Type 2 diabetes mellitus with diabetic neuropathy, unspecified (HCC) documented in this encounter Additional Health Concerns Infection Onset Date Last Indicated Resolved Time Respiratory Rule-Out 07/15/2023 07/15/2023 024 1:25 PM CDT Respiratory Rule-Out 08/23/2023 08/23/2023 024 6:42 AM CDT Assessment Noted Time PHQ-9 Depression Total Score: 0 02/08/19 10:13 AM LANGUAGE INTERPRETER documented as of this encounter Care Teams Tobacco Dipper Relationship Specialty Start Date End Date Salomón Meehan MD [address] [place] [address] PCP - General Internal Medicine 10/20/14 11/14/23 Silvino Malagon MD [address] [place] [address] PCP - General Pediatrics 11/29/23 Sheng Castillo MD [address] [place] [address] Ophthalmology 06/28/19 Kg Syed DPM [address] [place] [address] Consulting Physician Podiatry 01/14/21 Jose De La Fuente MD [address] [place] [address] Consulting Physician Cardiovascular Disease - Cardiology 02/23/22 Pawel Wolfe MD [address] [place] [address] Consulting Physician Neurology 11/04/22 Stacie Lemon MD [address] [place] [address] [address] Consulting Physician Endocrinology 06/16/23 documented as of this encounter
--- OUTSIDE RECORDS SUMMARY | 2024-04-21 03:21 | XMS_ITS | Encounter Summary ---
Author Organization [facility] Address [address] [place] [address] Phone Care Team Providers Care Connie Cleaner Name Role Phone Salomón Meehan MD Primary Care Provider [phone] Sheng Castillo MD Unavailable [phone] Kg Syed DPM Unavailable Jose De La Fuente MD Unavailable Pawel Wheeler MD Unavailable [phone] Stacie Lemon MD Unavailable Silvino Malagon MD Primary Care Provider [phone] Reason for Visit * Reason Comments Medication Refill Encounter Details Date Type Department Care Team (Late st Contact Info) Description 10/22/2023 Refill [facility] - Primary Care - [place] [address] [place] [address] Salomón Meehan MD [address] [place] [address] Medication Refill Social History Tobacco [...] discontinued on 04/21/2023 by Hazel Acuña APRN, HELP DESK TECHNICIAN documented in this encounter Plan of Treatment Upcoming Encounters Date Type Department Care Team (Late st Contact Info) Description 05/28/2024 9:30 AM CDT Office Visit [facility] - Endocrinology - [place] #2 [place] [address] Stacie Lemon MD #[address] [address] 08/30/2024 10:00 AM CDT [facility] - [place] #2 [place] [address] Vickie Stallworth APRN, BOILER CLEANER #[address] [place] [address] documented as of this encounter Visit Diagnoses Diagnosis Elevated brain natriuretic peptide (BNP) level Other nonspecific findings on examination of blood documented in this encounter Additional Health Concerns Assessment Noted Time PHQ-9 Depression Total Score: 0 02/08/19 24 10:13 AM EMAIL MARKETING ASSISTANT documented as of this encounter Care Teams Connie Cleaner Relationship Specialty Start Date End Date Salomón Meehan MD [address] [place] [address] PCP - General Internal Medicine 10/20/14 11/14/23 Silvino Malagon MD [address] [place] [address] PCP - General Pediatrics 11/29/23 Sheng Castillo MD [address] [place] [address] Ophthalmology 06/28/19 Kg Syed DPM [address] [place] [address] Consulting Physician Podiatry 01/14/21 Jose De La Fuente MD [address] [place] [address] Consulting Physician Cardiovascular Disease - Cardiology 02/23/22 Pawel Wolfe MD #1 [place] [address] Consulting Physician Neurology 11/04/22 Stacie Lemon MD #[address] [address] Consulting Physician Endocrinology 06/16/23 documented as of this encounter
--- OUTSIDE RECORDS SUMMARY | 2024-04-21 03:21 | XMS_ITS | Encounter Summary ---
Author Organization [facility] Address [address] [place] [address] Phone Care Team Providers Care Facility Service Associate Name Role Phone Salomón Meehan MD Primary Care Provider [phone] Sheng Castillo MD Unavailable [phone] Kg Syed DPM Unavailable Jose De La Fuente MD Unavailable Pawel Wheeler MD Unavailable [phone] Stacie Lemon MD Unavailable Silvino Malagon MD Primary Care Provider [phone] Encounter Details Date Type Department Care Team (Late st Contact Info) Description 01/18/2022 Lab Requisition [facility] Services [address] [place] [address] Salomón Meehan MD [address] [place] [address] Pneumonia, unspecified organism Social History [...] Coronavirus/COVID-19? No / Unsure 01/21/2022 8:44 AM EVAPORATOR SUPERVISOR documented as of this encounter Plan of Treatment Upcoming Encounters Date Type Department Care Team (Late st Contact Info) Description 05/28/2024 9:30 AM CDT Office Visit [facility] Medical [facility] - Endocrinology - [place] [address] [place] [address] Stacie Lemon MD [address] [address] 08/30/2024 10:00 AM CDT [facility] - [place] [address] [place] [address] Vickie Stallworth APRN, CLAIM AGENT [address] [place] [address] documented as of this encounter Procedures Procedure Name Priority Date/Time Associated Diagnosis Comments CBC WITH AUTO DIFFERENTIAL Routine 01/18/2022 10:09 AM EVAPORATOR SUPERVISOR Pneumonia, unspecified organism COMPLETE BLOOD COUNT (CBC) WITH DIFF Routine 01/18/2022 10:09 AM EVAPORATOR SUPERVISOR Pneumonia, unspecified organism BASIC METABOLIC PANEL W/ CALCIUM TOTAL Routine 01/18/2022 10:09 AM EVAPORATOR SUPERVISOR Pneumonia, unspecified organism documented in this encounter Results * (ABNORMAL) CBC WITH AUTO DIFFERENTIAL (01/18/2022 10:09 AM EVAPORATOR SUPERVISOR) WBC 7.38 4.00 - 12.00 10(3)/mcL 01/18/2022 11:15 AM [facility] RBC 4.40 3.80 - 5.30 10(6)/mcL 01/18/2022 11:15 AM [facility] HEMOGLOBIN (HGB) 12.4 12.0 - 15.8 g/dL 01/18/2022 11:15 AM [facility] HEMATOCRIT (HCT) 40.7 36.0 - 47.0 % 01/18/2022 11:15 AM [facility] MCV 92.5 82.0 - 96.0 fL 01/18/2022 11:15 AM [facility] MCH 28.2 26.0 - 34.0 pg 01/18/2022 11:15 AM [facility] MCHC 30.5(L) 31.0 - 36.0 g/dL 01/18/2022 11:15 AM [facility] PLATELET COUNT 256 140 - 440 10(3)/[facility] 01/18/2022 11:15 AM [facility] RDW 13.9 11.8 - 15.5 % 01/18/2022 11:15 AM [facility] MPV 9.9 9.7 - 12.4 fL 01/18/2022 11:15 AM [facility] NEUTROPHILS 66.1 47.0 - 73.0 % 01/18/2022 11:15 AM [facility] LYMPHOCYTES 24.1 18.0 - 42.0 % 01/18/2022 11:15 AM [facility] MONOCYTES 6.2 4.0 - 12.0 % 01/18/2022 11:15 AM [facility] EOSINOPHILS 2.8 0.0 - 5.0 % 01/18/2022 11:15 AM [facility] BASOPHILS 0.8 0.0 - 1.0 % 01/18/2022 11:15 AM [facility] ABSOLUTE NEUTROPHILS 4.87 1.60 - 7.70 10(3)/[facility] 01/18/2022 11:15 AM EVAPORATOR SUPERVISOR [facility] ABSOLUTE LYMPHOCYTES 1.78 1.30 - 3.20 10(3)/[facility] 01/18/2022 11:15 AM EVAPORATOR SUPERVISOR [facility] ABSOLUTE MONOCYTES 0.46 0.20 - 1.00 10(3)/[facility] 01/18/2022 11:15 AM EVAPORATOR SUPERVISOR [facility] ABSOLUTE EOSINOPHIL 0.21 0.00 - 0.40 10(3)/[facility] 01/18/2022 11:15 AM EVAPORATOR SUPERVISOR [facility] ABSOLUTE BASOPHILS 0.06 0.00 - 0.10 10(3)/[facility] 01/18/2022 11:15 AM [facility] NRBC PER 100 WBC 0 01/19/20 11:15 AM [facility] Blood No Phlebotomy Charged / Unknown 01/18/2022 10:09 AM [facility] 01/18/2022 11:12 AM [facility] us Salomón Meehan MD HEMATOLOGY ORDERABLES Fin al Result [facility] #[address] [place] [address] * (ABNORMAL) BASIC METABOLIC PANEL W/ CALCIUM TOTAL (01/18/2022 10:09 AM EVAPORATOR SUPERVISOR) SODIUM 136 136 - 144 mmol/L 01/18/2022 11:33 AM [facility] POTASSIUM 5.5(H) 3.5 - 5.1 mmol/L 01/18/2022 11:33 AM [facility] CHLORIDE 99(L) 100 - 110 mmol/L 01/18/2022 11:33 AM [facility] CO2, VENOUS 27 22 - 32 mmol/L 01/18/2022 11:33 AM [facility] ANION GAP 15.5 8.0 - 20.0 mmol/L 01/18/2022 11:33 AM [facility] GLUCOSE 234(H) 70 - 99 mg/dL 01/18/2022 11:33 AM EVAPORATOR SUPERVISOR [facility] BUN 20 8 - 23 mg/dL 01/18/2022 11:33 AM EVAPORATOR SUPERVISOR [facility] CREATININE, BLOOD 1.53(H) 0.60 - 1.10 mg/dL 01/18/2022 11:33 AM EVAPORATOR SUPERVISOR [facility] BUN/CREATININE RATIO 13 12 - 20 ratio 01/18/2022 11:33 AM EVAPORATOR SUPERVISOR [facility] CALCIUM 10.3 8.9 - 10.3 mg/dL 01/18/2022 11:33 AM EVAPORATOR SUPERVISOR [facility] GFR, ESTIMATED 34(L) >=60 01/18/2022 11:33 AM EVAPORATOR SUPERVISOR [facility] Comment: Creatinine Clearance is the preferred criteria for selecting drug dose adjustments in renally impaired patients. The GFR is provided as additional pertinent clinical information. GFR is reported in mL/min/1.73 sq m. Calculation based on the Chronic Kidney Disease Epidemiology Collaboration (CKD- EPI) equation refit without adjustment for race. GFR, EST. 39(L) >=60 022 11:33 AM EVAPORATOR SUPERVISOR [facility] GFR, EST. NONAFRICAN 32(L) >=60 01/18/2022 11:33 AM EVAPORATOR SUPERVISOR [facility] Blood No Phlebotomy Charged / Unknown 01/18/2022 10:09 AM EVAPORATOR SUPERVISOR 01/18/2022 11:12 AM EVAPORATOR SUPERVISOR us Salomón Meehan MD CHEMISTRY ORDERABLES Arianne l Result [facility] [address] [place] [address] documented in this encounter Visit Diagnoses Diagnosis Pneumonia, unspecified organism documented in this encounter Additional Health Concerns Infection Onset Date Last Indicated Resolved Time RSV 12/28/2021 12/28/2021 01/25/2022 12:1 6 AM EVAPORATOR SUPERVISOR Respiratory Rule-Out 07/15/2023 07/15/2023 024 1:25 PM CDT Respiratory Rule-Out 08/23/2023 08/23/2023 024 6:42 AM CDT Assessment Noted Time PHQ-9 Depression Total Score: 0 11/17/19 19 10:00 AM CDT documented as of this encounter Care Teams Facility Service Associate Relationship Specialty Start Date End Date Salomón Meehan MD [address] [place] [address] PCP - General Internal Medicine 10/20/14 11/14/23 Silvino Malagon MD [address] [place] [address] PCP - General Pediatrics 11/29/23 Sheng Castillo MD [address] [place] [address] Ophthalmology 06/28/19 Kg Syed DPM [address] [place] [address] Consulting Physician Podiatry 01/14/21 Jose De La Fuente MD [address] [place] [address] Consulting Physician Cardiovascular Disease - Cardiology 02/23/22 Pawel Wolfe MD [address] [place] [address] Consulting Physician Neurology 11/04/22 Stacie Lemon MD #[address] [id number] Consulting Physician Endocrinology 06/16/23 documented as of this encounter
--- OUTSIDE RECORDS SUMMARY | 2024-04-21 03:21 | XMS_ITS | Encounter Summary ---
Author Organization [facility] Address [address] [place] [address] Phone Care Team Providers Care Food Service Employee Name Role Phone Salomón Meehan MD Primary Care Provider [phone] Sheng Castillo MD Unavailable [phone] Kg Syed DPM Unavailable [phone] Jose De La Fuente MD Unavailable Pawel Wheeler MD Unavailable [phone] Stacie Lemon MD Unavailable Silvino Malagon MD Primary Care Provider [phone] Reason for Visit * Reason Comments Medication Refill Encounter Details Date Type Department Care Team (Late st Contact Info) Description 07/15/2023 Refill [facility] - Primary Care - [place] [address] [place] [address] Salomón Meehan MD [address] [place] [address] Medication Refill Social History Tobacco [...] Description 05/28/2024 9:30 AM CDT Office Visit [facility] - Endocrinology - [place] [address] [place] [address] Stacie Lemon MD [address] [address] 08/30/2024 10:00 AM CDT Office Visit [facility] Medical [facility] - Neurology - [place] [address] [place] [address] Vickie Stallworth APRN, PORTRAIT CONSULTANT [address] [place] [address] documented as of this encounter Visit Diagnoses Not on filedocumented in this encounter Additional Health Concerns Infection Onset Date Last Indicated Resolved Time Respiratory Rule-Out 07/15/2023 07/15/2023 024 1:25 PM CDT Respiratory Rule-Out 08/23/2023 08/23/2023 024 6:42 AM CDT Assessment Noted Time PHQ-9 Depression Total Score: 0 02/08/19 10:13 AM REPLANTER documented as of this encounter Care Teams Food Service Employee Relationship Specialty Start Date End Date Salomón Meehan MD [address] [place] [address] PCP - General Internal Medicine 10/20/14 11/14/23 Silvino Malagon MD [address] [place] [address] PCP - General Pediatrics 11/29/23 Sheng Castillo MD [address] [place] [address] Ophthalmology 06/28/19 Kg Syed DPM [address] [place] [address] Consulting Physician Podiatry 01/14/21 Jose De La Fuente MD [address] [place] [address] Consulting Physician Cardiovascular Disease - Cardiology 02/23/22 Pawel Wolfe MD [address] [place] [address] Consulting Physician Neurology 11/04/22 Stacie Lemon MD #[address] [address] Consulting Physician Endocrinology 06/16/23 documented as of this encounter
--- OUTSIDE RECORDS SUMMARY | 2024-04-21 03:21 | XMS_ITS | Encounter Summary ---
Author Organization [facility] Address [address] [place] [address] Phone Care Team Providers Care Casino Operations Supervisor Name Role Phone Salomón Meehan MD Primary Care Provider Sheng Castillo MD Unavailable [phone] Kg Syed DPAgusto Unavailable [phone] Jose De La Fuente MD Unavailable Pawel Wheeler MD Unavailable [phone] Stacie Lemon MD Unavailable Silvino Malagon MD Primary Care Provider [phone] Reason for Visit * Reason Comments Medication Refill Encounter Details Date Type Department Care Team (Late st Contact Info) Description 07/30/2023 Refill [facility] - Neurology [facility] [address] [place] [address] Pawel Wolfe MD [address] [place] [address] Medication Refill Social History Tobacco [...] Dept 05/26/23 Office Visit Pawel Wolfe MD [facility] Neurology [place] 04/21/23 Office Visit Hazel Acuña APRN, SPRING INTERN [facility] 02/08/23 Office Visit Salomón Meehan MD [facility] 11/04/22 Office Visit Pawel Wolfe MD [facility] Neurology [place] Showing recent visits within past 365 days and meeting all other requirements Future Appointments Date Type Provider Dept 08/15/23 Appointment Salomón Meehan MD [facility] 08/25/23 Appointment Pawel Wolfe MD [facility] Neurology [facility] [place] Showing future appointments within next 90 days and meeting all other requirements documented in this encounter Plan of Treatment Upcoming Encounters Date Type Department Care Team (Late st Contact Info) Description 05/28/2024 9:30 AM CDT [facility] - Endocrinology - [place] [address] [place] [address] Stacie Lemon MD #[address] [address] 08/30/2024 10:00 AM CDT [facility] - [place] [address] [place] [address] Vickie Stallworth, AIR TABLE OPERATOR, SURGICAL SERVICES TECH [address] [place] [address] documented as of this encounter Visit Diagnoses Not on filedocumented in this encounter Additional Health Concerns Infection Onset Date Last Indicated Resolved Time Respiratory Rule-Out 08/23/2023 08/23/2023 024 6:42 AM CDT Assessment Noted Time PHQ-9 Depression Total Score: 0 02/08/19 10:13 AM LUBRICATION SUPERVISOR documented as of this encounter Care Teams Casino Operations Supervisor Relationship Specialty Start Date End Date Salomón Meehan MD [address] [place] [address] PCP - General Internal Medicine 10/20/14 11/14/23 Silvino Malagon MD [address] [place] [address] PCP - General Pediatrics 11/29/23 Sheng Castillo MD [address] [place] [address] Ophthalmology 06/28/19 Kg Syed DPM [address] [place] [address] Consulting Physician Podiatry 01/14/21 Jose De La Fuente MD [address] [place] [address] Consulting Physician Cardiovascular Disease - Cardiology 02/23/22 Pawel Wolfe MD [address] [place] [address] Consulting Physician Neurology 11/04/22 Stacie Lemon MD #[address] [address] Consulting Physician Endocrinology 06/16/23 documented as of this encounter
[2024-04-21 03:22] LABS: Add Urine Microscopic? NO; Appearance Urine Clear (Clear); Bacteria Urine None Seen /hpf; Bilirubin Urine Negative (Negative); Blood Urine Non-Hemolyzed Trace (Negative); Color Urine Yellow (Yellow); Glucose Urine UA 3+ mg/dL (Negative); Ketones Urine Negative (Negative); Leukocyte Esterase Ur Negative LEU/UL (Negative); Nitrate Urine Negative (Negative); Non Pathogenic Casts 0-2; Protein Urine Negative (Negative); Specific Grav Ur 1.026 (1.001-1.035); Squamous Epithelial Cell Urine None Seen /hpf (Few); Urobilinogen Urine 0.2 mg/dL (<2.0); WBC Urine 0-5 /hpf (0-3); pH Urine 6.5 (5.0-9.0)
[2024-04-21 03:22] LABS: Partial Thromboplastin Time 30.8 Seconds (22.3-36.8)
--- OUTSIDE RECORDS SUMMARY | 2024-04-21 03:22 | XMS_ITS | Clinical Summary ---
Author Organization [facility] Address [address] [place] [address] Care Team Providers Care Erp Programmer Name Role Phone Salomón Meehan MD Primary Care Provider [phone] Allergies Active Allergy Reactions Criticality Noted Date [...] this topic Medical Devices Implanted Type Area Passenger Car Inspector Device Identifier Shelf Expiration Date Model / Serial / Lot Lens Lens Iol [id number] - [id number] Implanted:Qty: 1 on 07/24/2019 by Sheng Castillo MD at [facility] Lens Left: Eye [employer] 08/07/2023 [id number] / [id number] / N/A Description:Implant verified by MD Insurance Care Teams Erp Programmer Relationship Specialty Start Date End Date Salomón Meehan MD PCP - General INTERNAL MEDICINE 04/21/19
--- OUTSIDE RECORDS SUMMARY | 2024-04-21 03:22 | XMS_ITS | Clinical Summary ---
Author Organization [facility] [place] [facility] [place] Address [address] [place] [address] Care Team Providers Care Senior Ssis Developer Name Role Phone Silvino Malagon MD Primary [...] 1 tablet (81 mg total) by mouth coremaking machine setter before breakfast Active cholecalciferol (VITAMIN D-3) 1,000 [...] on file Legal Sex Female 9:24 AM DIGITAL MEDIA BUYER Gender Identity Not on file Sexual Orientation [...] Comments Blood Pressure 104/58 12/20/2023 9:27 AM DIGITAL MEDIA BUYER Pulse 65 12/20/2023 9:27 AM DIGITAL MEDIA BUYER Temperature - - Respiratory Rate - - Oxygen Saturation 96% 12/20/2023 9:27 AM DIGITAL MEDIA BUYER Inhaled Oxygen Concentration - - Weight 83.9 kg (185 lb) 12/20/2023 9:27 AM DIGITAL MEDIA BUYER Height 162.6 cm (5' 4 ) 12/20/2023 9:27 AM DIGITAL MEDIA BUYER Body Mass Index 31.76 12/20/2023 9:27 AM DIGITAL MEDIA BUYER Plan of Treatment Health Maintenance Due Date [...] Health Maintenance Insurance [employer] Care Teams Senior Ssis Developer Relationship Specialty Start Date End Date Silvino Malagon MD [address] [place] [address] PCP - General Family Medicine 12/20/23
--- OUTSIDE RECORDS SUMMARY | 2024-04-21 03:22 | XMS_ITS | Referral Summary ---
Author Organization [facility] [address] [place] [facility] [place] Address [address] [place] [address] Care Team Providers Care Film Critic Name Role Phone Silvino Malagon MD Primary [...] 1 tablet (81 mg total) by mouth bag checker before breakfast Active cholecalciferol (VITAMIN D-3) 1,000 [...] on file Legal Sex Female 9:24 AM COREMAKER EXPERIMENTAL Gender Identity Not on file Sexual Orientation Not on file Occupation Industry Job Start Date Job End Date retired Not on file Not on file Not on file Last Filed Vital Signs Vital Sign Reading Time Taken Comments Blood Pressure 104/58 12/20/2023 9:27 AM COREMAKER EXPERIMENTAL Pulse 65 12/20/2023 9:27 AM COREMAKER EXPERIMENTAL Temperature - - Respiratory Rate - - Oxygen Saturation 96% 12/20/2023 9:27 AM COREMAKER EXPERIMENTAL Inhaled Oxygen Concentration - - Weight 83.9 kg (185 lb) 12/20/2023 9:27 AM COREMAKER EXPERIMENTAL Height 162.6 cm (5' 4 ) 12/20/2023 9:27 AM COREMAKER EXPERIMENTAL Body Mass Index 31.76 12/20/2023 9:27 AM COREMAKER EXPERIMENTAL Plan of Treatment Not on file Procedures [...] Relevant to Health Maintenance Insurance MED[employer]ARE [employer] MEDICAL [facility] MEDICARE Address: [facility] [address] [place] [address] Care Teams Film Critic Relationship Specialty Start Date End Date Silvino Malagon MD [address] [place] [address] PCP - General Family Medicine 12/20/23
[2024-04-21 03:47] LABS: Alanine Aminotransferase 31 U/L (6-35); Albumin Level 4.1 g/dL (3.5-5.1); Alkaline Phosphatase 158 U/L (38-126); Anion Gap 11 mmol/L (4-12); Aspartate Amino Transferase 30 U/L (14-36); Bilirubin,Total 0.7 mg/dL (0.2-1.3); Blood Urea Nitrogen 39 mg/dL (7-17); Calcium 9.5 mg/dL (8.4-10.2); Carbon Dioxide 22 mmol/L (22-30); Chloride 104 mmol/L (98-107); Estimated CRCL calculation 25 ml/min; Estimated Glomerular Filt Rate 30; Glucose 189 mg/dL (65-110); Potassium 4.9 mmol/L (3.4-5.0); Sodium 137 mmol/L (137-145)
[2024-04-21] MEDS: SODIUM CHLORIDE 0.9% IV 1,000 ML 999 ML IV CONT (04:25)
[2024-04-21] MEDS: levETIRAcetam 1500MG/NACL100ML 1,500 MG/100 ML BAG 400 MG IVPB (04:25)
--- NOTE | 2024-04-21 05:15 | ED.GENADULT ---
HPI - General Adult General Chief complaint: Seizure <Skinny Holley MD - Last Filed: 04/21/24 06:43> Stated complaint: seizure, UTI sx <Skinny Holley MD - Last Filed: 04/21/24 06:43> Time Seen by Provider: 04/21/24 02:55 <Skinny Holley MD - Last Filed: 04/21/24 06:43> History of Present Illness HPI narrative: This is an 84-year-old female with history of seizures presenting for breakthrough seizures. Patient has absence seizures. Her typical seizures to stare off into space for a minute or 2 and then she will lay down and take a nap. She does not typically have more than 1 seizure a day. Today she had a seizure when her daughter was visiting, and then her daughter was called by the [facility] [place] seen that she is having repeated seizures. She was then sent to the ED to be evaluated. Her seizures have been relatively well controlled she has not had 1 in over a month and a half. She is currently denies any complaints including fevers chills chest pain difficulty breathing abdominal pain or urinary symptoms. Patient's family says they are concerned she may be dehydrated because she does not drink much water. She has been taking her seizure medications as instructed. Patient takes Keppra 500 mg b.i.d.. <Skinny Holley MD - Last Filed: 04/21/24 06:43> Related Data Home medications: Home Medications ?Medication ?Instructions ?Recorded ?Confirmed ?Last Taken ?Type atorvastatin 80 mg tablet 80 mg PO HS 03/21/23 04/21/24 Unknown History aspirin 81 mg tablet,delayed 81 mg PO DAILY 08/14/23 04/21/24 Unknown History release empagliflozin 10 mg tablet 10 mg PO DAILY 08/14/23 04/21/24 Unknown History insulin lispro 100 unit/mL 1 sliding scale dose subcut TIDWM 08/14/23 04/21/24 Unknown History subcutaneous pen (Humalog KwikPen (U-100) Insulin) levetiracetam 1,000 mg tablet 500 mg PO BID 08/14/23 04/21/24 Unknown History (Keppra) metoprolol succinate 25 mg 25 mg PO DAILY 08/14/23 04/21/24 Unknown History tablet,extended release 24 hr montelukast 10 mg tablet 10 mg PO QPM 08/14/23 04/21/24 Unknown History multivitamin,tx-minerals 1 tablet PO DAILY 08/14/23 04/21/24 Unknown History sacubitril 24 mg-valsartan 26 mg 1 tablet PO BID 08/14/23 04/21/24 Unknown History tablet calcium 500 mg (as 1 tablet PO DAILY 08/23/23 04/21/24 Unknown History carbonate)-vitamin D3 10 mcg (400 unit) tablet (Calcium 500 + D) apixaban 5 mg tablet (Eliquis) 5 mg PO Q12H 04/21/24 04/21/24 Unknown History <Skinny Holley MD - Last Filed: 04/21/24 06:43> Allergies/adverse reactions: Allergies Allergy/AdvReac Type Severity Reaction Status Date / Time naproxen Allergy Rash Verified 04/21/24 13:34 <Skinny Holley MD - Last Filed: 04/21/24 06:43> Review of Systems Review of Systems: All systems reviewed & are unremarkable except as noted in HPI and below <Nikita Loera MD - Last Filed: 04/21/24 17:08> [facility] Past Medical History Medical History: Medical History Depression Anxiety Hypothyroidism CVA (cerebral vascular accident) Seizure Cardiomyopathy Chronic combined systolic and diastolic CHF (congestive heart failure) Pulmonary embolism Vitamin D deficiency Peripheral neuropathy Type 2 diabetes mellitus Hyperlipidemia Hypertension <Skinny Holley MD - Last Filed: 04/21/24 06:43> Surgical History Surgical History: Surgical History Status post cataract extraction of both eyes with insertion of intraocular lens History of bilateral tubal ligation <Skinny Holley MD - Last Filed: 04/21/24 06:43> Family History Family History: Family History Father Alcoholism Mother Breast cancer Ovarian cancer <Skinny Holley MD - Last Filed: 04/21/24 06:43> Social History Social History: Social History Social History: Patient lives at home with her of over 60 years. She stated that she briefly smoked for a couple of years when she was young. She denies any significant alcohol use. She ambulates with a Rollator. Code status: DNR/DNI (per patient request) Surrogate decision maker: Smoking status: Smoker, status unknown Second hand tobacco smoke exposure: No Alcohol intake: never Substance use: never Substance use type: does not use Do You Feel Safe in your Home?: Yes Lack of Transportation: No Lack of Food: Never True Current Housing: I Have Housing Concerned About Future Housing: No Difficulty Paying Gas/Electric Bills: No Difficulty Paying for Meds: No Currently Unemployed: No Education: Don't Know Difficulty w/ Childcare or Family Care: No Spiritual care concerns: No <Skinny Holley MD - Last Filed: 04/21/24 06:43> Exam Narrative: APPEARANCE: No apparent distress. Head: atraumatic. EYES: EOMI, NOSE: Atraumatic NECK: Trachea midline RESPIRATORY: No increased rate of breathing, clear to auscultation CARDIOVASCULAR: RRR, no peripheral edema ABDOMINAL: Non-distended soft nontender no guarding rebound MUSCULOSKELETAl: No obvious deformities NEURO: Alert. Cranial nerves 2-12 grossly intact. Sensation light touch, motor function cerebellar function intact for 4 extremities. Gait exam was normal. SKIN:: Warm, dry. Normal color PSYCHIATRIC: Normal affect <Skinny Holley MD - Last Filed: 04/21/24 06:43> Course Reevaluation(s) Reevaluation #1: Case was discussed with the hospitalist and Neurology and patient will be admitted for breakthrough seizures. Patient has reported be taking her Keppra and patient had was no underlying evidence of infection. Patient was stable at time of admission. <Nikita Loera MD - Last Filed: 04/21/24 17:08> Vital Signs Vital signs: Vital Signs Temperature 97.6 F 04/20/24 23:34 Pulse Rate 62 04/20/24 23:34 Respiratory Rate 16 04/20/24 23:34 Blood Pressure 138/64 04/20/24 23:34 Pulse Oximetry 97 04/20/24 23:34 Oxygen Delivery Room Air 04/20/24 23:34 Temperature 97.9 F 04/21/24 14:00 Pulse Rate 59 L 04/21/24 14:00 Respiratory Rate 18 04/21/24 14:00 Blood Pressure 118/47 L 04/21/24 14:00 Pulse Oximetry 95 04/21/24 14:00 Oxygen Delivery Room Air 04/21/24 03:02 <Skinny Holley MD - Last Filed: 04/21/24 06:43> Vital Signs Temperature 97.6 F 04/20/24 23:34 Pulse Rate 62 04/20/24 23:34 Respiratory Rate 16 04/20/24 23:34 Blood Pressure 138/64 04/20/24 23:34 Pulse Oximetry 97 04/20/24 23:34 Oxygen Delivery Room Air 04/20/24 23:34 Temperature 97.9 F 04/21/24 14:00 Pulse Rate 59 L 04/21/24 14:00 Respiratory Rate 18 04/21/24 14:00 Blood Pressure 118/47 L 04/21/24 14:00 Pulse Oximetry 95 04/21/24 14:00 Oxygen Delivery Room Air 04/21/24 03:02 <Nikita Loera MD - Last Filed: 04/21/24 17:08> Medical Decision Making MDM Narrative Medical decision making narrative: -Course: 84-year-old female history of seizures presenting with breakthrough seizures. Patient had multiple seizures throughout the day but appears to be returning to her baseline in between. Laboratory studies and urine are unremarkable. CT head and chest x-ray are pending. Patient will require admission for breakthrough seizures. <Skinny Holley MD - Last Filed: 04/21/24 06:43> Vital Signs Vital Signs: Vital Signs Temperature 97.6 F 04/20/24 23:34 Pulse Rate 62 04/20/24 23:34 Respiratory Rate 16 04/20/24 23:34 Blood Pressure 138/64 04/20/24 23:34 Pulse Oximetry 97 04/20/24 23:34 Oxygen Delivery Room Air 04/20/24 23:34 Temperature 97.9 F 04/21/24 14:00 Pulse Rate 59 L 04/21/24 14:00 Respiratory Rate 18 04/21/24 14:00 Blood Pressure 118/47 L 04/21/24 14:00 Pulse Oximetry 95 04/21/24 14:00 Oxygen Delivery Room Air 04/21/24 03:02 <Skinny Holley MD - Last Filed: 04/21/24 06:43> Vital Signs Temperature 97.6 F 04/20/24 23:34 Pulse Rate 62 04/20/24 23:34 Respiratory Rate 16 04/20/24 23:34 Blood Pressure 138/64 04/20/24 23:34 Pulse Oximetry 97 04/20/24 23:34 Oxygen Delivery Room Air 04/20/24 23:34 Temperature 97.9 F 04/21/24 14:00 Pulse Rate 59 L 04/21/24 14:00 Respiratory Rate 18 04/21/24 14:00 Blood Pressure 118/47 L 04/21/24 14:00 Pulse Oximetry 95 04/21/24 14:00 Oxygen Delivery Room Air 04/21/24 03:02 <Nikita Loera MD - Last Filed: 04/21/24 17:08> Lab Data Result diagrams: 04/21/24 02:59 04/21/24 02:59 <Skinny Holley MD - Last Filed: 04/21/24 06:43> Labs: Lab Results 04/21/24 04/21/24 04/21/24 Range/Units 02:59 03:09 04:52 WBC 8.9 (4.5-10.0) K/mm3 RBC 4.02 L (4.2-5.4) M/mm3 Hgb 12.3 (12.0-15.0) g/dL Hct 37.3 (37.0-47.0) % MCV 92.8 (80-100) fl MCH 30.6 (26-34) pg MCHC 33.0 (32-36) g/dl RDW 13.2 (11.5-14.5) % Plt Count 239 (150-375) k/mm3 MPV 9.5 (7.4-10.4) fl Immature Gran % (Auto) 0.6 H (0-0.5) % Neut % (Auto) 57.9 (45.5-73.1) % Lymph % (Auto) 29.0 (18.3-44.2) % [place] % (Auto) 8.0 (2.6-8.5) % Eos % (Auto) 3.7 (0-4.4) % Baso % (Auto) 0.8 (0.2-1.2) % Lymph # (Auto) 2.59 (0.9-3.2) K/mm3 [place] # (Auto) 0.7 H (0.1-0.6) K/mm3 Eos # (Auto) 0.3 (0-0.3) K/mm3 Baso # (Auto) 0.1 (0.0-0.1) K/mm3 Abs Immat Gran (auto) 0.05 H (0.00-0.031) K/mm3 Absolute Neuts (auto) 5.2 (1.3-6.7) K/mm3 Absolute Nucleated RBC 0.000 (0.0-0.012) K/mm3 Nucleated RBC % 0.0 (0.0-0.2) % PT 17.6 H (11.1-14.7) Seconds INR 1.4 APTT 30.8 (22.3-36.8) Seconds Sodium 137 (137-145) mmol/L Potassium 4.9 (3.4-5.0) mmol/L Chloride 104 (98-107) mmol/L Carbon Dioxide 22 (22-30) mmol/L Anion Gap 11 (4-12) mmol/L BUN 39 H (7-17) mg/dL Creatinine 1.62 H (0.7-1.0) mg/dL Estim Creat Clear Calc 25 ml/min Estimated GFR 30 L (59 - ) Glucose 189 H (65-110) mg/dL Calcium 9.5 (8.4-10.2) mg/dL Total Bilirubin 0.7 (0.2-1.3) mg/dL AST 30 (14-36) U/L ALT 31 (6-35) U/L Alkaline Phosphatase 158 H (38-126) U/L Total Protein 7.0 (6.3-8.2) g/dL Albumin 4.1 (3.5-5.1) g/dL Urine Color Yellow (Yellow) Urine Appearance Clear (Clear) Urine pH 6.5 (5.0-9.0) Ur Specific [place] 1.026 (1.001-1.035) Urine Protein Negative (Negative) mg/dL Urine Glucose (UA) 3+ H (Negative) mg/dL Urine Ketones Negative (Negative) mg/dL Ur Blood (Man) Non-hemolyzed trace H (Negative) Urine Nitrate Negative (Negative) Urine Bilirubin Negative (Negative) Urine Urobilinogen 0.2 (<2.0) mg/dL Leukocyte Esterase Rfl Negative (Negative) KP/UL Urine RBC 11-20 H (0-2) /hpf Urine WBC 0-5 (0-3) /hpf Ur Squamous Epith Cells None seen (Few) /hpf Urine Bacteria None seen /hpf Urine Casts 0-2 Levetiracetam Pending <Skinny Holley MD - Last Filed: 04/21/24 06:43> Lab Results 04/21/24 04/21/24 04/21/24 Range/Units 02:59 03:09 04:52 WBC 8.9 (4.5-10.0) K/mm3 RBC 4.02 L (4.2-5.4) M/mm3 Hgb 12.3 (12.0-15.0) g/dL Hct 37.3 (37.0-47.0) % MCV 92.8 (80-100) fl MCH 30.6 (26-34) pg MCHC 33.0 (32-36) g/dl RDW 13.2 (11.5-14.5) % Plt Count 239 (150-375) k/mm3 MPV 9.5 (7.4-10.4) fl Immature Gran % (Auto) 0.6 H (0-0.5) % Neut % (Auto) 57.9 (45.5-73.1) % Lymph % (Auto) 29.0 (18.3-44.2) % [place] % (Auto) 8.0 (2.6-8.5) % Eos % (Auto) 3.7 (0-4.4) % Baso % (Auto) 0.8 (0.2-1.2) % Lymph # (Auto) 2.59 (0.9-3.2) K/mm3 [place] # (Auto) 0.7 H (0.1-0.6) K/mm3 Eos # (Auto) 0.3 (0-0.3) K/mm3 Baso # (Auto) 0.1 (0.0-0.1) K/mm3 Abs Immat Gran (auto) 0.05 H (0.00-0.031) K/mm3 Absolute Neuts (auto) 5.2 (1.3-6.7) K/mm3 Absolute Nucleated RBC 0.000 (0.0-0.012) K/mm3 Nucleated RBC % 0.0 (0.0-0.2) % PT 17.6 H (11.1-14.7) Seconds INR 1.4 APTT 30.8 (22.3-36.8) Seconds Sodium 137 (137-145) mmol/L Potassium 4.9 (3.4-5.0) mmol/L Chloride 104 (98-107) mmol/L Carbon Dioxide 22 (22-30) mmol/L Anion Gap 11 (4-12) mmol/L BUN 39 H (7-17) mg/dL Creatinine 1.62 H (0.7-1.0) mg/dL Estim Creat Clear Calc 25 ml/min Estimated GFR 30 L (59 - ) Glucose 189 H (65-110) mg/dL Calcium 9.5 (8.4-10.2) mg/dL Total Bilirubin 0.7 (0.2-1.3) mg/dL AST 30 (14-36) U/L ALT 31 (6-35) U/L Alkaline Phosphatase 158 H (38-126) U/L Total Protein 7.0 (6.3-8.2) g/dL Albumin 4.1 (3.5-5.1) g/dL Urine Color Yellow (Yellow) Urine Appearance Clear (Clear) Urine pH 6.5 (5.0-9.0) Ur Specific [place] 1.026 (1.001-1.035) Urine Protein Negative (Negative) mg/dL Urine Glucose (UA) 3+ H (Negative) mg/dL Urine Ketones Negative (Negative) mg/dL Ur Blood (Man) Non-hemolyzed trace H (Negative) Urine Nitrate Negative (Negative) Urine Bilirubin Negative (Negative) Urine Urobilinogen 0.2 (<2.0) mg/dL Leukocyte Esterase Rfl Negative (Negative) KP/UL Urine RBC 11-20 H (0-2) /hpf Urine WBC 0-5 (0-3) /hpf Ur Squamous Epith Cells None seen (Few) /hpf Urine Bacteria None seen /hpf Urine Casts 0-2 Levetiracetam Pending <Nikita Loera MD - Last Filed: 04/21/24 17:08> Discharge Plan Discharge Clinical Impression: Breakthrough seizure <Skinny Holley MD - Last Filed: 04/21/24 06:43> Patient Disposition: Still a Patient <Skinny Holley MD - Last Filed: 04/21/24 06:43> Condition: Serious <Skinny Holley MD - Last Filed: 04/21/24 06:43>
--- NOTE | 2024-04-21 12:40 | P.HP_ITS ---
H&P: HPI History of Present Illness Date/Time: 04/21/24 12:40 Chief Complaint: Seizure Narrative: 84 y/o F presents here with seizure with PMH of absent seizures, CHF, PE, vitamin-D deficiency, CVA, peripheral neuropathy, hypothyroidism, DM, HLD, and HTN. The patient presents here via EMS from [place] seizure-like activity. HPI obtained to patient interview and chart review. The patient has a history of absent seizures and typically last for 1-2 minutes with no more than 1 seizure per day. Last occurrence was 1-1.5 months ago prior to yesterday evening (04/20). Per EMS report, [facility] staff reported that the patient had multiple seizures yesterday evening. Upon their arrival, the patient was twitching every 5-6 seconds. This is accompanied by increased confusion and somnolence x1 week. During initial intake, bedside RN in the ED witnessed 2 episodes that appeared to be consistent with absence seizures. Episode described as the patient became flaccid, stopped responding, and slumped to the side. Episode lasted for approximately 10 seconds and patient was A&Ox3-4 post episode. She is currently on Keppra 500 mg b.i.d. and reports compliance. Denies recent illness, fever, chills, body aches, changes in medication. Initial VS at presentation: 97.6? F, HR 62, R 16, 138/64, and 97% on RA. ED workup showed: No leukocytosis, no anemia, creatinine 1.62 and GFR 30 (previously 1.53 and GFR 32 in 09/2023), glucose 189, and UA not consistent with UTI. Keppra level pending. Head CT showed no intracranial hemorrhage/mass/acute infarct, stable chronic left occipital lobe infarct, and atrophy/chronic white matter changes. CXR showed a small left pleural effusion with central congestive changes or vascular crowding. EKG showed sinus rhythm, left bundle branch block, rate 64. Review of Systems Review of Systems: All systems reviewed & are unremarkable except as noted in HPI and below [facility] Past Medical History Medical History Depression Anxiety Hypothyroidism CVA (cerebral vascular accident) Seizure Cardiomyopathy Chronic combined systolic and diastolic CHF (congestive heart failure) Pulmonary embolism Vitamin D deficiency Peripheral neuropathy Type 2 diabetes mellitus Hyperlipidemia Hypertension Surgical History Surgical History Status post cataract extraction of both eyes with insertion of intraocular lens History of bilateral tubal ligation Family History Family History Father Alcoholism Mother Breast cancer Ovarian cancer Social History Social History Social History: Patient lives at home with her of over 60 years. She stated that she briefly smoked for a couple of years when she was young. She denies any significant alcohol use. She ambulates with a Rollator. Code status: DNR/DNI (per patient request) Surrogate decision maker: Smoking status: Smoker, status unknown Second hand tobacco smoke exposure: No Alcohol intake: never Substance use: never Substance use type: does not use Do You Feel Safe in your Home?: Yes Lack of Transportation: No Lack of Food: Never True Current Housing: I Have Housing Concerned About Future Housing: No Difficulty Paying Gas/Electric Bills: No Difficulty Paying for Meds: No Currently Unemployed: No Education: Don't Know Difficulty w/ Childcare or Family Care: No Spiritual care concerns: No Meds Home Medications and Allergies Home Medications ?Medication ?Instructions ?Recorded ?Confirmed ?Type cholecalciferol (vitamin D3) 25 25 mcg PO DAILY #30 tabs 03/11/23 04/21/24 Rx mcg (1,000 unit) tablet gabapentin 100 mg capsule 100 mg PO HS #30 caps 03/11/23 04/21/24 Rx mirabegron 50 mg tablet,extended 50 mg PO DAILY #30 tabs 03/11/23 04/21/24 Rx release 24 hr (Myrbetriq) spironolactone 25 mg tablet 25 mg PO DAILY #30 tabs 03/11/23 04/21/24 Rx venlafaxine 75 mg capsule,extended 75 mg PO DAILY #30 caps 03/11/23 04/21/24 Rx release 24 hr atorvastatin 80 mg tablet 80 mg PO HS 03/21/23 04/21/24 History levothyroxine 75 mcg tablet 75 mcg PO DAILY@0630 #30 tabs 08/01/23 04/21/24 Rx aspirin 81 mg tablet,delayed 81 mg PO DAILY 08/14/23 04/21/24 History release empagliflozin 10 mg tablet 10 mg PO DAILY 08/14/23 04/21/24 History insulin lispro 100 unit/mL 1 sliding scale dose subcut TIDWM 08/14/23 04/21/24 History subcutaneous pen (Humalog KwikPen (U-100) Insulin) levetiracetam 1,000 mg tablet 500 mg PO BID 08/14/23 04/21/24 History (Keppra) metoprolol succinate 25 mg 25 mg PO DAILY 08/14/23 04/21/24 History tablet,extended release 24 hr montelukast 10 mg tablet 10 mg PO QPM 08/14/23 04/21/24 History multivitamin,tx-minerals 1 tablet PO DAILY 08/14/23 04/21/24 History sacubitril 24 mg-valsartan 26 mg 1 tablet PO BID 08/14/23 04/21/24 History tablet calcium 500 mg (as 1 tablet PO DAILY 08/23/23 04/21/24 History carbonate)-vitamin D3 10 mcg (400 unit) tablet (Calcium 500 + D) apixaban 5 mg tablet (Eliquis) 5 mg PO Q12H 04/21/24 04/21/24 History Allergies Allergy/AdvReac Type Severity Reaction Status Date / Time naproxen Allergy Rash Verified 04/21/24 13:34 Vital Signs Vital Signs - 24 hr 04/20/24 23:34 04/21/24 03:02 04/21/24 03:11 Temperature 97.6 F Pulse Rate 62 67 Respiratory Rate 16 15 Blood Pressure 138/64 134/54 L Pulse Oximetry 97 99 Oxygen Delivery Room Air Room Air 04/21/24 08:00 04/21/24 09:00 04/21/24 10:51 Temperature 97.6 F Pulse Rate 63 59 L 63 Respiratory Rate 16 16 Blood Pressure 130/34 L 129/59 L 123/40 L Pulse Oximetry 97 99 100 Oxygen Delivery Exam 2 Narrative: benign. flat. Const: General: comfortable and no acute distress Other: , female, elderly, nontoxic appearance HENMT: Face/Nose/Sinus: Normal nares present Mouth: Yes moist mucous membranes Eyes: General: appearance normal, both eyes and all related structures Scle ra: sclerae normal Pupils: Equal, round and reactive pupils present EOM: EOMs intact bilaterally Resp: Effort & Inspection: normal respiratory effort Auscultation: clear to auscultation bilaterally Cardio: Rate: regular rate Rhythm: regular rhythm Other: S1-S2 present without murmur, rub, ectopy GI: Other: Abdomen soft, nondistended, nontender. Normoactive bowel sounds in all quadrants. Skin: General skin exam: normal color and no rashes or lesions noted Wounds: no wounds Neuro: Speech: normal speech Motor exam (neuro): 5/5 motor strength present throughout Sensory Exam: normal sensation Other: A&Ox3-4. Patient initially answered that the year was 1924, able to correct to 2024. Poor situational recall. Extrem: General: normal to inspection Psych: Mental Status: mental status grossly normal Other: Flattened affect. Pleasant. H&P: Results Labs Labs: Short CBC 04/21/24 Range/Units 02:59 WBC 8.9 (4.5-10.0) K/mm3 Hgb 12.3 (12.0-15.0) g/dL Hct 37.3 (37.0-47.0) % Plt Count 239 (150-375) k/mm3 BMP 04/21/24 02:59 Sodium 137 Potassium 4.9 Chloride 104 Carbon Dioxide 22 BUN 39 H Creatinine 1.62 H Glucose 189 H Calcium 9.5 Liver Function 04/21/24 Range/Units 02:59 Total Bilirubin 0.7 (0.2-1.3) mg/dL AST 30 (14-36) U/L ALT 31 (6-35) U/L Alkaline Phosphatase 158 H (38-126) U/L Albumin 4.1 (3.5-5.1) g/dL Urine 04/21/24 Range/Units 03:09 Urine Color Yellow (Yellow) Urine Appearance Clear (Clear) Urine pH 6.5 (5.0-9.0) Ur Specific [place] 1.026 (1.001-1.035) Urine Protein Negative (Negative) mg/dL Urine Glucose (UA) 3+ H (Negative) mg/dL Assessment and Plan Assessment and plan (1) Breakthrough seizure: Code(s): G40.919 - Epilepsy, unspecified, intractable, without status epilepticus Status: Acute Assessment and Plan: - head CT: No intracranial hemorrhage, mass, or acute infarct. Stable chronic left occipital lobe infarct. Atrophy and chronic white matter changes, as above. - no anemia, leukocytosis, or significant electrolyte derangements - UA not consistent with UTI - Keppra level pending, given 1500 mg in the ED - neurology consulted, Naseer plan to increase Keppra from 500 BID -> 750 BID - history of hypothyroidism, check TSH with reflex - seizure precautions (2) Type 2 diabetes mellitus: Qualifiers: Chronic kidney disease stage: stage 3 (moderate) Chronic kidney disease stage 3 subtype: unspecified whether 3a or 3b Diabetes mellitus complication detail: with chronic kidney disease Diabetes mellitus complication status: with kidney complications Diabetes mellitus retirement insulin use: with retirement use Qualified Code(s): E11.22 - Type 2 diabetes mellitus with diabetic chronic kidney disease; N18.30 - Chronic kidney disease, stage 3 unspecified; Z79.4 - intermediate project manager (current) use of insulin Code(s): E11.9 - Type 2 diabetes mellitus without complications Status: Chronic Assessment and Plan: - hypoglycemia protocol - POC blood glucose ACHS - home medication: Hold Jardiance and home sliding scale. - correct regimen ordered - moderate dose TIDWM, based off BMI - A1C 7.6% in 2023, 189 at arrival. (3) Hypertension: Qualifiers: Hypertension type: primary hypertension Qualified Code(s): I10 - Essential (primary) hypertension Code(s): I10 - Essential (primary) hypertension Status: Chronic Assessment and Plan: - chronic, currently 123/40 - continue home medications: Metoprolol, Entresto, spironolactone - monitor Plan Diet: Diabetic GI Prophylaxis: Not currently indicated DVT Prophylaxis: SCD, Eliquis Lines: Peripheral Code Status: DNR Quality VTE Prophylaxis VTE prophylaxis: mechanical ordered and pharmacologic ordered Hospitalist MIPS Advance Care Plan I have confirmed that the patient's Advanced Care Plan is present, code status is documented, or surrogate decision maker is listed in patient medical record.: Yes Medication Reconciliation I have utilized all available resources to obtain, update and review the patients current medications (includes all prescriptions, OTC, herbals, cannabis, and nutritional supplements).: Yes
--- NOTE | 2024-04-21 13:17 | ADMGEN ---
This patient, Nara Post, was admitted to 3 [facility] Surg Room 330-01. Patient/family oriented to hospital policies and general routines including ID bracelet, bed and alarms, visiting hours, pain management, procedures, bathroom and other care routines, personal items, smoking policy, room service/diet, and visiting hours. Information on how to activate the Rapid Response Team has been discussed. Patient/Family are encouraged to report perceived risks to care and to ask questions if they do not understand what they are told or what they should do. Report from Jackie.
--- NOTE | 2024-04-21 13:47 | WPDNEURCNPN ---
Assessment and Plan Assessment and plan (1) Breakthrough seizure: Code(s): G40.919 - Epilepsy, unspecified, intractable, without status epilepticus Status: Acute (2) History of stroke: Code(s): Z86.73 - Personal history of transient ischemic attack (TIA), and cerebral infarction without residual deficits Status: Acute (3) Chronic anticoagulation: Code(s): Z79.01 - MCC (current) use of anticoagulants Status: Acute (4) Cervical compression fracture: Code(s): S12.9XXA - Fracture of neck, unspecified, initial encounter Status: Acute Plan 1. Status post old stroke in the left occipital lobe with right-sided subtle visual field cut. 2. Ongoing history of localization-related or partial seizure under fairly good control but recent breakthrough patient has been taking Keppra 500mg twice a day which can be increased to 750 twice a day. 3. Ongoing history of atrial fibrillation for which patient is on long-term anticoagulation therapy that can be continued as such 4. Diabetes mellitus with secondary complication of diabetic neuropathy. Consult date: 04/21/24 HPI: Nara Post is a 84 year old female admitted to the hospital with ongoing history of seizure disorder and now breakthrough seizures. Reportedly patient has absence seizure when she starts staring off into the space for 1 or 2minutes and subsequently she will lay down and take a nap she had a seizure when her daughter was visiting and then her daughter was called by the [facility] that she is having repeated seizures. At that time she was sent to the emergency room to be evaluated, her seizures have been relatively well controlled and she has not had 1 over one and half month. She gave no history of any other generalized symptomatology, family were concerned about the possible dehydration because of her lack of drinking water. She has been taking her anticonvulsants regularly that is Keppra 500mg b.i.d.. Her other medications included 1. Atorvastatin 80mg at night 2. Aspirin 81mg daily 3. Empagliflozin 10mg daily 4. Insulin 34units subQ every morning and also sliding scale 5. Keppra 500mg twice a day 6. Metoprolol 25mg daily 7. Sacubitril 24mg wall started on 26mg tablet b.i.d. she is allergic to naproxen. Her past history does include 1. Congestive heart failure 2. Stroke 3. Type 2 diabetes mellitus with peripheral neuropathy 4. Hypothyroidism 5. Hypertension. She has undergone cataract extraction bilaterally with intra-ocular lenses and she carries the code status of DNR. She is never a smoker, never alcohol intaker , on initial evaluation her vital signs were normal CT scan of the head with chronic left occipital lobe infarct along with the generalized atrophy and white matter changes.were normal ,CBC was normal, BMP with blood sugar 189 BUN 39 and creatinine 1.6 2, rest of the lab unremarkable, x-ray chest with small left pleural effusion and mild congestive changes, Previously she has had thoracic ct which has documented subacute , cervical spine C6 compression deformity, brain MRA in 24- and MRI with chronic left occipital lobe infarct as detected by the CT scan this time. Subsequent to the visit to the ER this time she has been given Keppra 1500mg IV x1. she also carries the diagnosis of diffuse is skeletal hyperostosis of the thoracic spine. Her MRI of the brain in August of 2023 was compatible with moderate to advanced chronic microvascular ischemic changes with mild generalized atrophy and chronic left occipital lobe infarct. Review of Systems Review of Systems: All systems reviewed & are unremarkable except as noted in HPI and below PMFSH Past Medical History Medical History Depression Anxiety Hypothyroidism CVA (cerebral vascular accident) Seizure Cardiomyopathy Chronic combined systolic and diastolic CHF (congestive heart failure) Pulmonary embolism Vitamin D deficiency Peripheral neuropathy Type 2 diabetes mellitus Hyperlipidemia Hypertension Surgical History Surgical History Status post cataract extraction of both eyes with insertion of intraocular lens History of bilateral tubal ligation Family History Family History Father Alcoholism Mother Breast cancer Ovarian cancer Social History Social History Social History: Patient lives at home with her of over 60 years. She stated that she briefly smoked for a couple of years when she was young. She denies any significant alcohol use. She ambulates with a Rollator. Code status: DNR/DNI (per patient request) Surrogate decision maker: Smoking status: Smoker, status unknown Second hand tobacco smoke exposure: No Alcohol intake: never Substance use: never Substance use type: does not use Do You Feel Safe in your Home?: Yes Lack of Transportation: No Lack of Food: Never True Current Housing: I Have Housing Concerned About Future Housing: No Difficulty Paying Gas/Electric Bills: No Difficulty Paying for Meds: No Currently Unemployed: No Education: Don't Know Difficulty w/ Childcare or Family Care: No Spiritual care concerns: No Meds Home Medications and Allergies Home Medications ?Medication ?Instructions ?Recorded ?Confirmed ?Type cholecalciferol (vitamin D3) 25 25 mcg PO DAILY #30 tabs 03/11/23 04/21/24 Rx mcg (1,000 unit) tablet gabapentin 100 mg capsule 100 mg PO HS #30 caps 03/11/23 04/21/24 Rx mirabegron 50 mg tablet,extended 50 mg PO DAILY #30 tabs 03/11/23 04/21/24 Rx release 24 hr (Myrbetriq) spironolactone 25 mg tablet 25 mg PO DAILY #30 tabs 03/11/23 04/21/24 Rx venlafaxine 75 mg capsule,extended 75 mg PO DAILY #30 caps 03/11/23 04/21/24 Rx release 24 hr atorvastatin 80 mg tablet 80 mg PO HS 03/21/23 04/21/24 History levothyroxine 75 mcg tablet 75 mcg PO DAILY@0630 #30 tabs 08/01/23 04/21/24 Rx aspirin 81 mg tablet,delayed 81 mg PO DAILY 08/14/23 04/21/24 History release empagliflozin 10 mg tablet 10 mg PO DAILY 08/14/23 04/21/24 History fluticasone 250 mcg-salmeterol 50 1 inh inhalation Q12H PRN 08/14/23 04/21/24 History mcg/dose blistr powdr for Shortness Of Breath inhalation (Advair Diskus) insulin glargine 100 unit/mL 34 unit subcut QAM 08/14/23 04/21/24 History subcutaneous solution insulin lispro 100 unit/mL 1 sliding scale dose subcut TIDWM 08/14/23 04/21/24 History subcutaneous pen (Humalog KwikPen (U-100) Insulin) levetiracetam 1,000 mg tablet 500 mg PO BID 08/14/23 04/21/24 History (Keppra) metoprolol succinate 25 mg 25 mg PO DAILY 08/14/23 04/21/24 History tablet,extended release 24 hr montelukast 10 mg tablet 10 mg PO QAM 08/14/23 04/21/24 History multivitamin,tx-minerals 1 tablet PO DAILY 08/14/23 04/21/24 History sacubitril 24 mg-valsartan 26 mg 1 tablet PO BID 08/14/23 04/21/24 History tablet calcium 500 mg (as 1 tablet PO DAILY 08/23/23 04/21/24 History carbonate)-vitamin D3 10 mcg (400 unit) tablet (Calcium 500 + D) hydrocodone 5 mg-acetaminophen 325 1 tablet PO Q8H PRN Moderate Pain 09/02/23 04/21/24 Rx mg tablet (Scale Score 5-6) #10 tabs apixaban 5 mg tablet (Eliquis) 5 mg PO Q12H 04/21/24 04/21/24 History Allergies Allergy/AdvReac Type Severity Reaction Status Date / Time naproxen Allergy Rash Verified 04/21/24 13:34 Vital Signs Vital Signs - 24 hr 04/20/24 23:34 04/21/24 03:02 04/21/24 03:11 Temperature 36.4 C Pulse Rate 62 67 Respiratory Rate 16 15 Blood Pressure 138/64 134/54 L Pulse Oximetry 97 99 Oxygen Delivery Room Air Room Air 04/21/24 08:00 04/21/24 09:00 04/21/24 10:51 Temperature 36.4 C Pulse Rate 63 59 L 63 Respiratory Rate 16 16 Blood Pressure 130/34 L 129/59 L 123/40 L Pulse Oximetry 97 99 100 Oxygen Delivery Exam Narrative: Exam today consistent with her being awake alert and cooperative in no obvious acute distress, head normocephalic with no bruit, neck supple with no cervical bruits, ear nose throat examination normal, heart regular with no murmur, lungs clear to auscultation with no rhonchi or crepitations, abdomen soft with no organomegaly with normal bowel sounds, neurologically she is awake alert she is able to follow the verbal commands appropriately, his speech of low volume but not dysphasic and not dysarthric, pupils round regular, feels the vision with possible right visual field cut, extraocular movements full with no nystagmus facial sensation intact face symmetrical on smile tongue in the midline no fasciculation motor examination revealed her to have generally decreased strength but with no focal motor deficit reflexes are sluggish are downgoing. She had decreased sensation distally in both lower extremities. She had no difficulties in performing [id number] to finger though she was unable to do heel to knee to orozco. Results Labs 04/21/24 02:59 04/21/24 02:59 Labs: Short CBC 04/21/24 Range/Units 02:59 WBC 8.9 (4.5-10.0) K/mm3 Hgb 12.3 (12.0-15.0) g/dL Hct 37.3 (37.0-47.0) % Plt Count 239 (150-375) k/mm3 BMP 04/21/24 02:59 Sodium 137 Potassium 4.9 Chloride 104 Carbon Dioxide 22 BUN 39 H Creatinine 1.62 H Glucose 189 H Calcium 9.5 Liver Function 04/21/24 Range/Units 02:59 Total Bilirubin 0.7 (0.2-1.3) mg/dL AST 30 (14-36) U/L ALT 31 (6-35) U/L Alkaline Phosphatase 158 H (38-126) U/L Albumin 4.1 (3.5-5.1) g/dL Urine 04/21/24 Range/Units 03:09 Urine Color Yellow (Yellow) Urine Appearance Clear (Clear) Urine pH 6.5 (5.0-9.0) Ur Specific [place] 1.026 (1.001-1.035) Urine Protein Negative (Negative) mg/dL Urine Glucose (UA) 3+ H (Negative) mg/dL
[2024-04-21 16:37] LABS: Glucose Point of Care 205 mg/dl (65-105)
[2024-04-21] MEDS: INSULIN ASPART (*BKC) 100 UNITS/ML SUB-Q (16:59)
[2024-04-21 21:05] LABS: Glucose Point of Care 162 mg/dl (65-105)
[2024-04-21] MEDS: GABAPENTIN 100 MG CAPSULE PO (21:27)
[2024-04-21] MEDS: APIXABAN 5 MG TABLET PO (21:27)
[2024-04-21] MEDS: ATORVASTATIN 40 MG TABLET 80 MG PO (21:27)
[2024-04-21] MEDS: SACUBITRIL/VALSARTAN 24-26 MG TABLET 1 TAB PO (21:27)
[2024-04-22] VITALS (10 sets, daily range): BP systolic 119–137; BP diastolic 47–51; PULSE 63–84; RESP 16–18; TEMP 36.4; O2SAT 90–97
[2024-04-22 06:09] LABS: Basophils Absolute Auto 0.1 K/mm3 (0.0-0.1); Basophils Percent Auto 0.8 % (0.2-1.2); Eosinophils Absolute Auto 0.3 K/mm3 (0-0.3); Eosinophils Percent Auto 4.5 % (0-4.4); Hemoglobin 12.3 g/dL (12.0-15.0); Immature Granulocyte Absolute 0.03 K/mm3 (0.00-0.031); Immature Granulocyte Percent A 0.5 % (0-0.5); Lymphocytes Absolute Auto 1.86 K/mm3 (0.9-3.2); Mean Corpuscular HGB Conc 32.4 g/dl (32-36); Mean Corpuscular Hemoglobin 30.8 pg (26-34); Mean Platelet Volume 9.7 fl (7.4-10.4); Monocytes Absolute Auto 0.5 K/mm3 (0.1-0.6); Monocytes Percent Auto 6.8 % (2.6-8.5); Neutrophils Percent Auto 59.4 % (45.5-73.1); Platelet Count Result 227 k/mm3 (150-375); Red Cell Distribution Width 13.2 % (11.5-14.5); White Blood Count 6.7 K/mm3 (4.5-10.0)
[2024-04-22 06:26] LABS: Anion Gap 10 mmol/L (4-12); Blood Urea Nitrogen 31 mg/dL (7-17); Calcium 9.1 mg/dL (8.4-10.2); Carbon Dioxide 22 mmol/L (22-30); Chloride 106 mmol/L (98-107); Estimated CRCL calculation 28 ml/min; Estimated Glomerular Filt Rate 32; Glucose 157 mg/dL (65-110); Magnesium 1.8 mg/dL (1.6-2.3); Potassium 4.8 mmol/L (3.4-5.0); Sodium 138 mmol/L (137-145)
[2024-04-22] MEDS: LEVOTHYROXINE SODIUM 75 MCG TABLET PO (06:53)
[2024-04-22 07:30] LABS: Glucose Point of Care 192 mg/dl (65-105)
[2024-04-22] MEDS: levETIRAcetam 500 MG TABLET PO (08:47)
[2024-04-22] MEDS: THERAPEUTIC MULTIVITAMINS/MINERALS TAB (*BKC) 1 TABLET PO (08:47)
[2024-04-22] MEDS: MIRABEGRON 50 MG ER TABLET PO (08:47)
[2024-04-22] MEDS: VENLAFAXINE HCL XR 75 MG CAP.ER.24H PO (08:47)
[2024-04-22] MEDS: SPIRONOLACTONE 25 MG TABLET PO (08:47)
[2024-04-22] MEDS: CHOLECALCIFEROL 1,000 UNITS TABLET 1000 UNITS PO (08:47)
[2024-04-22] MEDS: CALCIUM/VITAMIN D 500 MG/5 MCG (200 I.U.) TABLET PO (08:48)
[2024-04-22] MEDS: METOPROLOL SUCCINATE EXT REL 25 MG TABCR PO (08:48)
[2024-04-22] MEDS: APIXABAN 5 MG TABLET PO ×2 (08:48→21:22)
[2024-04-22] MEDS: SACUBITRIL/VALSARTAN 24-26 MG TABLET 1 TAB PO ×2 (08:48→21:21)
[2024-04-22] MEDS: ASPIRIN 81 MG ENTERIC TABLET PO (08:48)
[2024-04-22 11:38] LABS: Glucose Point of Care 332 mg/dl (65-105)
[2024-04-22] MEDS: INSULIN ASPART (*BKC) 100 UNITS/ML SUB-Q ×2 (11:55→17:51)
--- NOTE | 2024-04-22 13:40 | PM.IMPN ---
Progress Note: A&P Assessment and Plan (1) Breakthrough seizure: Code(s): G40.919 - Epilepsy, unspecified, intractable, without status epilepticus Status: Acute Assessment and Plan: - head CT: No intracranial hemorrhage, mass, or acute infarct. Stable chronic left occipital lobe infarct. Atrophy and chronic white matter changes, as above. 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 Diabetes mellitus complication status: with kidney complications Diabetes mellitus complication detail: with chronic kidney disease Chronic kidney disease stage: stage 3 (moderate) Chronic kidney disease stage 3 subtype: unspecified whether 3a or 3b Qualified Code(s): E11.22 - Type 2 diabetes mellitus with diabetic chronic kidney disease; N18.30 - Chronic kidney disease, stage 3 unspecified; Z79.4 - longterm (current) use of insulin Code(s): E11.9 - Type 2 diabetes mellitus without complications Status: Chronic Assessment and Plan: - hypoglycemia protocol - POC blood glucose ACHS - home medication: Hold Jardiance and home sliding scale. - correct regimen ordered - moderate dose TIDWM, based off BMI - A1C 7.6% in 2023, 189 at arrival. stable- continue (3) Hypertension: Qualifiers: Hypertension type: primary hypertension Qualified Code(s): I10 - Essential (primary) hypertension Code(s): I10 - Essential (primary) hypertension Status: Chronic Assessment and Plan: - chronic, currently 123/40 - continue home medications: Metoprolol, Entresto, spironolactone - monitor Plan Diet: Diabetic GI Prophylaxis: Not currently indicated DVT Prophylaxis: SCD, Eliquis Lines: Peripheral Code Status: DNR Time Spent With Patient Time with patient: 25 - 35 minutes Subjective Date/time seen: 04/22/24 13:40 Interval history: 84 y/o F presents here with seizure with PMH of absent seizures, CHF, PE, vitamin-D deficiency, CVA, peripheral neuropathy, hypothyroidism, DM, HLD, and HTN admitted via EMS from [place] seizure-like activity. Neurology was consulted and keppra dose is to be increased. continue anticoag. Review of Systems Review of Systems: All systems reviewed & are unremarkable except as noted in HPI and below Exam Narrative: benign. flat. Const: General: comfortable and no acute distress Other: , female, elderly, nontoxic appearance HENMT: Face/Nose/Sinus: Normal nares present Mouth: Yes moist mucous membranes Eyes: General: appearance normal, both eyes and all related structures Sclera: sclerae normal Pupils: Equal, round and reactive pupils present EOM: EOMs intact bilaterally Resp: Effort & Inspection: normal respiratory effort Auscultation: clear to auscultation bilaterally Cardio: Rate: regular rate Rhythm: regular rhythm Other: S1-S2 present without murmur, rub, ectopy GI: Other: Abdomen soft, nondistended, nontender. Normoactive bowel sounds in all quadrants. Skin: General skin exam: normal color and no rashes or lesions noted Wounds: no wounds Neuro: Cranial nerves: Yes Equal, round and reactive pupils present Speech: normal speech Motor exam (neuro): 5/5 motor strength present throughout Sensory Exam: normal sensation Other: A&Ox3-4. Patient initially answered that the year was 192, able to correct to 2024. Poor situational recall. Extrem: General: normal to inspection Psych: Mental Status: mental status grossly normal Other: Flattened affect. Pleasant. Objective Data Vital Signs Vital Signs: Vital Signs - 24 hr 04/21/24 14:00 04/21/24 16:00 04/21/24 20:00 Temperature 97.9 F Pulse Rate 59 L 62 Respiratory Rate 18 Blood Pressure 118/47 L Pulse Oximetry 95 Oxygen Delivery Room Air 04/21/24 20:00 04/21/24 20:08 04/22/24 00:00 Temperature 97.3 F L Pulse Rate 68 67 74 Respiratory Rate 16 Blood Pressure 142/50 H Pulse Oximetry 100 Oxygen Delivery 04/22/24 04:00 04/22/24 05:44 04/22/24 08:00 Temperature 97.6 F Pulse Rate 77 70 Respiratory Rate 16 Blood Pressure 137/50 L Pulse Oximetry 90 Oxygen Delivery Room Air 04/22/24 08:00 04/22/24 08:48 Temperature Pulse Rate 78 84 Respiratory Rate Blood Pressure Pulse Oximetry Oxygen Delivery Intake/Output Intake/Output: Intake & Output 04/19/24 04/20/24 04/21/24 04/22/24 23:59 23:59 23:59 23:59 Intake Total 1220 1266 Balance 1220 1266 Meds/Results Medications: Active Medications Generic Name Dose Route Start Last Admin Trade Name Freq PRN Reason Stop Dose Admin Apixaban 5 mg 04/21/24 21:00 04/22/24 08:48 Apixaban 5 Mg Tablet PO 5 mg Q12H CATALINO Administration Aspirin 81 mg 04/22/24 09:00 04/22/24 08:48 Aspirin 81 Mg Enteric Tablet PO 81 mg DAILY CATALINO Administration Atorvastatin Calcium 80 mg 04/21/24 21:00 04/21/24 21:27 Atorvastatin 40 Mg Tablet PO 80 mg HS CATALINO Administration Calcium Carbonate 500 mg 04/22/24 09:00 04/22/24 08:48 Calcium/Vitamin D 500 Mg/5 Mcg (200 I.U.) Tablet PO 500 mg DAILY CATALINO Administration Dextrose 12.5 gm 04/21/24 12:58 Dextrose 50% 25 Gm/50 Ml Syringe IV PUSH PRN PRN Hypoglycemia Protocol Gabapentin 100 mg 04/21/24 21:00 04/21/24 21:27 Gabapentin 100 Mg Capsule PO 100 mg HS CATALINO Administration Glucagon 1 mg 04/21/24 12:58 Glucagon For Inj 1 Mg Vial IM PRN PRN Hypoglycemia Protocol Glucose 15 gm 04/21/24 12:58 Glucose Oral Gel 15 Gm Of Glucse In 37.5 Gm Tube PO PRN PRN Hypoglycemia Protocol Dextrose 1,000 mls @ 100 mls/hr 04/21/24 12:58 Dextrose 5% 1,000 Ml IVPB PRN PRN Hypoglycemia Protocol Insulin Aspart 3 - 6 units 04/21/24 17:00 04/22/24 11:55 Insulin Aspart (*Bkc) 100 Units/Ml SUB-Q 5 units TIDWM CATALINO Administration Protocol Levetiracetam 750 mg 04/22/24 17:00 Levetiracetam 250 Mg Tablet PO BID CATAILNO Levothyroxine Sodium 75 mcg 04/22/24 06:30 04/22/24 06:53 Levothyroxine Sodium 75 Mcg Tablet PO 75 mcg DAILY@0630 CATALINO Administration Metoprolol Succinate 25 mg 04/22/24 09:00 04/22/24 08:48 Metoprolol Succinate Ext Rel 25 Mg Tabcr PO 25 mg DAILY CATALINO Administration Mirabegron 50 mg 04/22/24 09:00 04/22/24 08:47 Mirabegron 50 Mg Er Tablet PO 50 mg DAILY CATALINO Administration Montelukast Sodium 10 mg 04/22/24 18:00 Montelukast Sodium 10 Mg Tablet PO QPM [facility] Multivitamins/Calcium 1 tablet 04/22/24 09:00 04/22/24 08:47 Therapeutic Multivitamins/Minerals Tab (*Bkc) PO 1 tablet DAILY CATALINO Administration Sacubitril/Valsartan 1 tab 04/21/24 21:00 04/22/24 08:48 Sacubitril/Valsartan 24-26 Mg Tablet PO 1 tab Q12HR CATALINO Administration Spironolactone 25 mg 04/22/24 09:00 04/22/24 08:47 Spironolactone 25 Mg Tablet PO 25 mg DAILY CATALINO Administration Venlafaxine HCl 75 mg 04/22/24 09:00 04/22/24 08:47 Venlafaxine Hcl Xr 75 Mg Cap.Er.24h PO 75 mg DAILY CATALINO Administration Vitamin D 1,000 units 04/22/24 09:00 04/22/24 08:47 Cholecalciferol 1,000 Units Tablet PO 1,000 units DAILY CATALINO Administration Radiology Results: ITS Impressions Head CT 04/21/24 07:02 Impression: No intracranial hemorrhage, mass, or acute infarct. Stable chronic left occipital lobe infarct. Atrophy and chronic white matter changes, as above. Chest X-Ray 04/21/24 07:06 Impression: Small left pleural effusion with central congestive change or vascular crowding. Labs Labs: Laboratory Results - last 24 hr 04/21/24 04/21/24 04/22/24 16:28 20:11 05:40 WBC 6.7 RBC 4.00 L Hgb 12.3 Hct 38.0 MCV 95.0 MCH 30.8 MCHC 32.4 RDW 13.2 Plt Count 227 MPV 9.7 Immature Gran % (Auto) 0.5 Neut % (Auto) 59.4 Lymph % (Auto) 28.0 [place] % (Auto) 6.8 Eos % (Auto) 4.5 H Baso % (Auto) 0.8 Lymph # (Auto) 1.86 [place] # (Auto) 0.5 Eos # (Auto) 0.3 Baso # (Auto) 0.1 Abs Immat Gran (auto) 0.03 Absolute Neuts (auto) 4.0 Absolute Nucleated RBC 0.000 Nucleated RBC % 0.0 Sodium 138 Potassium 4.8 Chloride 106 Carbon Dioxide 22 Anion Gap 10 BUN 31 H Creatinine 1.55 H Estim Creat Clear Calc 28 Estimated GFR 32 L Glucose 157 H POC Capillary Glucose 205 H 162 H Calcium 9.1 Magnesium 1.8 TSH (Reflex) 2.680 04/22/24 04/22/24 07:20 11:31 WBC RBC Hgb Hct MCV MCH MCHC RDW Plt Count MPV Immature Gran % (Auto) Neut % (Auto) Lymph % (Auto) [place] % (Auto) Eos % (Auto) Baso % (Auto) Lymph # (Auto) [place] # (Auto) Eos # (Auto) Baso # (Auto) Abs Immat Gran (auto) Absolute Neuts (auto) Absolute Nucleated RBC Nucleated RBC % Sodium Potassium Chloride Carbon Dioxide Anion Gap BUN Creatinine Estim Creat Clear Calc Estimated GFR Glucose POC Capillary Glucose 192 H 332 H Calcium Magnesium TSH (Reflex) Quality VTE Prophylaxis VTE prophylaxis: mechanical ordered and pharmacologic ordered
[2024-04-22 17:17] LABS: Glucose Point of Care 217 mg/dl (65-105)
[2024-04-22] MEDS: MONTELUKAST SODIUM 10 MG TABLET PO (17:51)
[2024-04-22] MEDS: levETIRAcetam 250 MG TABLET 750 MG PO (17:51)
[2024-04-22 21:10] LABS: Glucose Point of Care 213 mg/dl (65-105)
[2024-04-22] MEDS: ATORVASTATIN 40 MG TABLET 80 MG PO (21:21)
[2024-04-22] MEDS: GABAPENTIN 100 MG CAPSULE PO (21:22)
[2024-04-23] VITALS (7 sets, daily range): BP systolic 115–139; BP diastolic 46–51; PULSE 62–69; RESP 16–18; TEMP 36.1–36.6; O2SAT 95
[2024-04-23] MEDS: LEVOTHYROXINE SODIUM 75 MCG TABLET PO (05:56)
[2024-04-23 07:36] LABS: Glucose Point of Care 212 mg/dl (65-105)
[2024-04-23 08:05] LABS: Basophils Absolute Auto 0.1 K/mm3 (0.0-0.1); Basophils Percent Auto 0.6 % (0.2-1.2); Eosinophils Absolute Auto 0.3 K/mm3 (0-0.3); Eosinophils Percent Auto 3.7 % (0-4.4); Hematocrit 38.5 % (37.0-47.0); Hemoglobin 12.4 g/dL (12.0-15.0); Immature Granulocyte Absolute 0.04 K/mm3 (0.00-0.031); Immature Granulocyte Percent A 0.4 % (0-0.5); Lymphocytes Absolute Auto 1.87 K/mm3 (0.9-3.2); Lymphocytes Percent Auto 20.8 % (18.3-44.2); Mean Corpuscular HGB Conc 32.2 g/dl (32-36); Mean Corpuscular Hemoglobin 30.6 pg (26-34); Mean Corpuscular Volume 95.1 fl (80-100); Mean Platelet Volume 9.4 fl (7.4-10.4); Monocytes Absolute Auto 0.7 K/mm3 (0.1-0.6); Monocytes Percent Auto 7.9 % (2.6-8.5); Neutrophils Percent Auto 66.6 % (45.5-73.1); Platelet Count Result 236 k/mm3 (150-375); Red Blood Count 4.05 M/mm3 (4.2-5.4); Red Cell Distribution Width 13.1 % (11.5-14.5)
[2024-04-23 08:19] LABS: Alanine Aminotransferase 30 U/L (6-35); Alkaline Phosphatase 136 U/L (38-126); Anion Gap 8 mmol/L (4-12); Aspartate Amino Transferase 26 U/L (14-36); Bilirubin,Total 0.5 mg/dL (0.2-1.3); Blood Urea Nitrogen 36 mg/dL (7-17); Calcium 9.2 mg/dL (8.4-10.2); Carbon Dioxide 25 mmol/L (22-30); Chloride 105 mmol/L (98-107); Estimated CRCL calculation 25 ml/min; Estimated Glomerular Filt Rate 29; Glucose 212 mg/dL (65-110); Potassium 4.6 mmol/L (3.4-5.0); Sodium 138 mmol/L (137-145)
[2024-04-23] MEDS: levETIRAcetam 250 MG TABLET 750 MG PO (08:44)
[2024-04-23] MEDS: METOPROLOL SUCCINATE EXT REL 25 MG TABCR PO (08:44)
[2024-04-23] MEDS: VENLAFAXINE HCL XR 75 MG CAP.ER.24H PO (08:44)
[2024-04-23] MEDS: CALCIUM/VITAMIN D 500 MG/5 MCG (200 I.U.) TABLET PO (08:44)
[2024-04-23] MEDS: ASPIRIN 81 MG ENTERIC TABLET PO (08:44)
[2024-04-23] MEDS: APIXABAN 5 MG TABLET PO (08:44)
[2024-04-23] MEDS: CHOLECALCIFEROL 1,000 UNITS TABLET 1000 UNITS PO (08:44)
[2024-04-23] MEDS: MIRABEGRON 50 MG ER TABLET PO (08:44)
[2024-04-23] MEDS: SPIRONOLACTONE 25 MG TABLET PO (08:44)
[2024-04-23] MEDS: THERAPEUTIC MULTIVITAMINS/MINERALS TAB (*BKC) 1 TABLET PO (08:45)
[2024-04-23] MEDS: SACUBITRIL/VALSARTAN 24-26 MG TABLET 1 TAB PO (08:45)
[2024-04-23] MEDS: INSULIN ASPART (*BKC) 100 UNITS/ML SUB-Q ×2 (08:45→11:42)
[2024-04-23 11:31] LABS: Glucose Point of Care 306 mg/dl (65-105)
--- NOTE | 2024-04-23 13:01 | P.PNIM_ITS ---
Progress Note: A&P Assessment and Plan (1) Breakthrough seizure: Code(s): G40.919 - Epilepsy, unspecified, intractable, without status epilepticus Status: Acute Assessment and Plan: - head CT: No intracranial hemorrhage, mass, or acute infarct. Stable chronic left occipital lobe infarct. Atrophy and chronic white matter changes, as above. 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 Diabetes mellitus complication status: with kidney complications Diabetes mellitus complication detail: with chronic kidney disease Chronic kidney disease stage: stage 3 (moderate) Chronic kidney disease stage 3 subtype: unspecified whether 3a or 3b Qualified Code(s): E11.22 - Type 2 diabetes mellitus with diabetic c hronic kidney disease; N18.30 - Chronic kidney disease, stage 3 unspecified; Z79.4 - penitentiary (current) use of insulin Code(s): E11.9 - Type 2 diabetes mellitus without complications Status: Chronic Assessment and Plan: - hypoglycemia protocol - POC blood glucose ACHS - home medication: Hold Jardiance and home sliding scale. - correct regimen ordered - moderate dose TIDWM, based off BMI - A1C 7.6% in 2023, 189 at arrival. stable- continue (3) Hypertension: Qualifiers: Hypertension type: primary hypertension Qualified Code(s): I10 - Essential (primary) hypertension Code(s): I10 - Essential (primary) hypertension Status: Chronic Assessment and Plan: - chronic, currently 123/40 - continue home medications: Metoprolol, Entresto, spironolactone - monitor Plan Diet: Diabetic GI Prophylaxis: Not currently indicated DVT Prophylaxis: SCD, Eliquis Lines: Peripheral Code Status: DNR Time Spent With Patient Time with patient: 25 - 35 minutes Subjective Date/time seen: 04/23/24 13:01 Interval history: 84 y/o F presents here with seizure with PMH of absent seizures, CHF, PE, vitamin-D deficiency, CVA, peripheral neuropathy, hypothyroidism, DM, HLD, and HTN admitted via EMS from [place] seizure-like activity. Neurology was consulted and keppra dose increased. ON anticoag. seizure precautions. PT/OT ordered. Review of Systems Review of Systems: All systems reviewed & are unremarkable except as noted in HPI and below Exam Narrative: benign. flat. Const: General: comfortable and no acute distress Other: , female, elderly, nontoxic appearance HENMT: Face/Nose/Sinus: Normal nares present Mouth: Yes moist mucous membranes Eyes: General: appearance normal, both eyes and all related structures Sclera: sclerae normal Pupils: Equal, round and reactive pupils present EOM: EOMs intact bilaterally Resp: Effort & Inspection: normal respiratory effort Auscultation: clear to auscultation bilaterally Cardio: Rate: regular rate Rhythm: regular rhythm Other: S1-S2 present without murmur, rub, ectopy GI: Other: Abdomen soft, nondistended, nontender. Normoactive bowel sounds in all quadrants. Skin: General skin exam: normal color and no rashes or lesions noted Wounds: no wounds Neuro: Cranial nerves: Yes Equal, round and reactive pupils present Speech: normal speech Motor exam (neuro): 5/5 motor strength present throughout Sensory Exam: normal sensation Other: A&Ox3-4. Patient initially answered that the year was 1924, able to correct to 2024. Poor situational recall. Extrem: General: normal to inspection Psych: Mental Status: mental status grossly normal Other: Flattened affect. Pleasant. Objective Data Vital Signs Vital Signs: Vital Signs - 24 hr 04/22/24 13:59 04/22/24 16:02 04/22/24 20:00 Temperature 97.6 F Pulse Rate 73 63 70 Respiratory Rate 16 Blood Pressure 119/47 L Pulse Oximetry 96 Oxygen Delivery 04/22/24 21:01 04/23/24 00:00 04/23/24 04:00 Temperature 97.5 F L Pulse Rate 63 69 66 Respiratory Rate 18 Blood Pressure 124/51 L Pulse Oximetry 97 Oxygen Delivery 04/23/24 06:07 04/23/24 08:00 04/23/24 08:44 Temperature 97.8 F Pulse Rate 67 65 67 Respiratory Rate 16 Blood Pressure 139/51 L Pulse Oximetry 95 Oxygen Delivery 04/23/24 08:45 04/23/24 08:46 04/23/24 12:00 Temperature Pulse Rate 62 Respiratory Rate Blood Pressure Pulse Oximetry Oxygen Delivery Room Air Room Air Intake/Output Intake/Output: Intake & Output 04/20/24 04/21/24 04/22/24 04/23/24 23:59 23:59 23:59 23:59 Intake Total 1220 1386 1764 Balance 1220 1386 1764 Meds/Results Medications: Active Medications Generic Name Dose Route Start Last Admin Trade Name Freq PRN Reason Stop Dose Admin Apixaban 5 mg 04/21/24 21:00 04/23/24 08:44 Apixaban 5 Mg Tablet PO 5 mg Q12H CATALINO Administration Aspirin 81 mg 04/22/24 09:00 04/23/24 08:44 Aspirin 81 Mg Enteric Tablet PO 81 mg DAILY CATALINO Administration Atorvastatin Calcium 80 mg 04/21/24 21:00 04/22/24 21:21 Atorvastatin 40 Mg Tablet PO 80 mg HS CATALINO Administration Calcium Carbonate 500 mg 04/22/24 09:00 04/23/24 08:44 Calcium/Vitamin D 500 Mg/5 Mcg (200 I.U.) Tablet PO 500 mg DAILY CATALINO Administration Dextrose 12.5 gm 04/21/24 12:58 Dextrose 50% 25 Gm/50 Ml Syringe IV PUSH PRN PRN Hypoglycemia Protocol Gabapentin 100 mg 04/21/24 21:00 04/22/24 21:22 Gabapentin 100 Mg Capsule PO 100 mg HS CATALINO Administration Glucagon 1 mg 04/21/24 12:58 Glucagon For Inj 1 Mg Vial IM PRN PRN Hypoglycemia Protocol Glucose 15 gm 04/21/24 12:58 Glucose Oral Gel 15 Gm Of Glucse In 37.5 Gm Tube PO PRN PRN Hypoglycemia Protocol Dextrose 1,000 mls @ 100 mls/hr 04/21/24 12:58 Dextrose 5% 1,000 Ml IVPB PRN PRN Hypoglycemia Protocol Insulin Aspart 3 - 6 units 04/21/24 17:00 04/23/24 11:42 Insulin Aspart (*Bkc) 100 Units/Ml SUB-Q 5 units TIDWM CATALINO Administration Protocol Levetiracetam 750 mg 04/22/24 17:00 04/23/24 08:44 Levetiracetam 250 Mg Tablet PO 750 mg BID CATALINO Administration Levothyroxine Sodium 75 mcg 04/22/24 06:30 04/23/24 05:56 Levothyroxine Sodium 75 Mcg Tablet PO 75 mcg DAILY@0630 CATALINO Administration Metoprolol Succinate 25 mg 04/22/24 09:00 04/23/24 08:44 Metoprolol Succinate Ext Rel 25 Mg Tabcr PO 25 mg DAILY CATALINO Administration Mirabegron 50 mg 04/22/24 09:00 04/23/24 08:44 Mirabegron 50 Mg Er Tablet PO 50 mg DAILY CATALINO Administration Montelukast Sodium 10 mg 04/22/24 18:00 04/22/24 17:51 Montelukast Sodium 10 Mg Tablet PO 10 mg QPM CATALINO Administration Multivitamins/Calcium 1 tablet 04/22/24 09:00 04/23/24 08:45 Therapeutic Multivitamins/Minerals Tab (*Bkc) PO 1 tablet DAILY CATALINO Administration Sacubitril/Valsartan 1 tab 04/21/24 21:00 04/23/24 08:45 Sacubitril/Valsartan 24-26 Mg Tablet PO 1 tab Q12HR CATALINO Administration Spironolactone 25 mg 04/22/24 09:00 04/23/24 08:44 Spironolactone 25 Mg Tablet PO 25 mg DAILY CATALINO Administration Venlafaxine HCl 75 mg 04/22/24 09:00 04/23/24 08:44 Venlafaxine Hcl Xr 75 Mg Cap.Er.24h PO 75 mg DAILY CATALINO Administration Vitamin D 1,000 units 04/22/24 09:00 04/23/24 08:44 Cholecalciferol 1,000 Units Tablet PO 1,000 units DAILY CATALINO Administration Radiology Results: ITS Impressions Head CT 04/21/24 07:02 Impression: No intracranial hemorrhage, mass, or acute infarct. Stable chronic left occipital lobe infarct. Atrophy and chronic white matter changes, as above. Chest X-Ray 04/21/24 07:06 Impression: Small left pleural effusion with central congestive change or vascular crowding. Labs Labs: Laboratory Results - last 24 hr 04/22/24 04/22/24 04/23/24 16:31 21:03 07:31 WBC RBC Hgb Hct MCV MCH MCHC RDW Plt Count MPV Immature Gran % (Auto) Neut % (Auto) Lymph % (Auto) [place] % (Auto) Eos % (Auto) Baso % (Auto) Lymph # (Auto) [place] # (Auto) Eos # (Auto) Baso # (Auto) Abs Immat Gran (auto) Absolute Neuts (auto) Absolute Nucleated RBC Nucleated RBC % Sodium Potassium Chloride Carbon Dioxide Anion Gap BUN Creatinine Estim Creat Clear Calc Estimated GFR Glucose POC Capillary Glucose 217 H 213 H 212 H Calcium Total Bilirubin AST ALT Alkaline Phosphatase Total Protein Albumin 04/23/24 04/23/24 07:57 11:26 WBC 9.0 RBC 4.05 L Hgb 12.4 Hct 38.5 MCV 95.1 MCH 30.6 MCHC 32.2 RDW 13.1 Plt Count 236 MPV 9.4 Immature Gran % (Auto) 0.4 Neut % (Auto) 66.6 Lymph % (Auto) 20.8 [place] % (Auto) 7.9 Eos % (Auto) 3.7 Baso % (Auto) 0.6 Lymph # (Auto) 1.87 [place] # (Auto) 0.7 H Eos # (Auto) 0.3 Baso # (Auto) 0.1 Abs Immat Gran (auto) 0.04 H Absolute Neuts (auto) 6.0 Absolute Nucleated RBC 0.000 Nucleated RBC % 0.0 Sodium 138 Potassium 4.6 Chloride 105 Carbon Dioxide 25 Anion Gap 8 BUN 36 H Creatinine 1.69 H Estim Creat Clear Calc 25 Estimated GFR 29 L Glucose 212 H POC Capillary Glucose 306 H Calcium 9.2 Total Bilirubin 0.5 AST 26 ALT 30 Alkaline Phosphatase 136 H Total Protein 7.0 Albumin 4.0 Quality VTE Prophylaxis VTE prophylaxis: mechanical ordered and pharmacologic ordered
--- NOTE | 2024-04-23 14:58 | P.DS_ITS ---
DS: Admitting Diagnosis Discharge Date 04/23 Admitting Diagnosis seizures DS: Discharge Diagnosis Discharge Diagnosis (1) Breakthrough seizure: Code(s): G40.919 - Epilepsy, unspecified, intractable, without status epilepticus Status: Acute (2) Type 2 diabetes mellitus: Qualifiers: Chronic kidney disease stage: stage 3 (moderate) Chronic kidney disease stage 3 subtype: unspecified whether 3a or 3b Diabetes mellitus complication detail: with chronic kidney disease Diabetes mellitus complication status: with kidney complications Diabetes mellitus keno terminal operator insulin use: with keno terminal operator use Qualified Code(s): E11.22 - Type 2 diabetes mellitus with diabetic chronic kidney disease; N18.30 - Chronic kidney disease, stage 3 unspecified; Z79.4 - joint terminal attack controller (current) use of insulin Code(s): E11.9 - Type 2 diabetes mellitus without complications Status: Chronic (3) Hypertension: Qualifiers: Hypertension type: primary hypertension Qualified Code(s): I10 - Essential (primary) hypertension Code(s): I10 - Essential (primary) hypertension Status: Chronic DS: Summary Hospital Course Hospital Course: 84 y/o F presents here with seizure with PMH of absent seizures, CHF, PE, vitamin-D deficiency, CVA, peripheral neuropathy, hypothyroidism, DM, HLD, and HTN admitted via EMS from [place] seizure-like activity. Neurology was consulted and Keppra dose is to be increased. Continue anticoagulation. Neurology was consulted and her dose of keppra was increased to 750 mg bid. NO other changes were made. She is to continue to take anticoag. She worked with Pt/OT and did well. Cleared for dishcharge per neurology with a close f/u with pcp and neurology Status at Discharge Functional status at discharge: uses cane/walker Overall status at discharge: patient is progressing back to baseline Time Spent with Patient Time attestation: Total time spent providing and/or coordinating discharge services: Time spent: Greater than 30 minutes Exam Narrative: benign. flat. Const: General: comfortable and no acute distress Other: , female, elderly, nontoxic appearance HENMT: Face/Nose/Sinus: Normal nares present Mouth: Yes moist mucous membranes Eyes: General: appearance normal, both eyes and all related structures Sclera: sclerae normal Pupils: Equal, round and reactive pupils present EOM: EOMs intact bilaterally Resp: Effort & Inspection: normal respiratory effort Auscultation: clear to auscultation bilaterally Cardio: Rate: regular rate Rhythm: regular rhythm Other: S1-S2 present without murmur, rub, ectopy GI: Other: Abdomen soft, nondistended, nontender. Normoactive bowel sounds in all quadrants. Skin: General skin exam: normal color and no rashes or lesions noted Wounds: no wounds Neuro: Cranial nerves: Yes Equal, round and reactive pupils present Speech: normal speech Motor exam (neuro): 5/5 motor strength present throughout Sensory Exam: normal sensation Other: A&Ox3-4. Patient initially answered that the year was 1924, able to correct to 2024. Poor situational recall. Extrem: General: normal to inspection Psych: Mental Status: mental status grossly normal Other: Flattened affect. Pleasant. DS: Data Data Completed and Pending Completed studies during hospitalization: head CT, chest xray Labs on day of discharge: Labs from last 24 hours 04/23/24 04/23/24 04/23/24 11:26 07:57 07:31 WBC 9.0 RBC 4.05 L Hgb 12.4 Hct 38.5 MCV 95.1 MCH 30.6 MCHC 32.2 RDW 13.1 Plt Count 236 MPV 9.4 Immature Gran % (Auto) 0.4 Neut % (Auto) 66.6 Lymph % (Auto) 20.8 [place] % (Auto) 7.9 Eos % (Auto) 3.7 Baso % (Auto) 0.6 Lymph # (Auto) 1.87 [place] # (Auto) 0.7 H Eos # (Auto) 0.3 Baso # (Auto) 0.1 Abs Immat Gran (auto) 0.04 H Absolute Neuts (auto) 6.0 Absolute Nucleated RBC 0.000 Nucleated RBC % 0.0 Sodium 138 Potassium 4.6 Chloride 105 Carbon Dioxide 25 Anion Gap 8 BUN 36 H Creatinine 1.69 H Estim Creat Clear Calc 25 Estimated GFR 29 L Glucose 212 H POC Capillary Glucose 306 H 212 H Calcium 9.2 Total Bilirubin 0.5 AST 26 ALT 30 Alkaline Phosphatase 136 H Total Protein 7.0 Albumin 4.0 04/22/24 04/22/24 21:03 16:31 WBC RBC Hgb Hct MCV MCH MCHC RDW Plt Count MPV Immature Gran % (Auto) Neut % (Auto) Lymph % (Auto) [place] % (Auto) Eos % (Auto) Baso % (Auto) Lymph # (Auto) [place] # (Auto) Eos # (Auto) Baso # (Auto) Abs Immat Gran (auto) Absolute Neuts (auto) Absolute Nucleated RBC Nucleated RBC % Sodium Potassium Chloride Carbon Dioxide Anion Gap BUN Creatinine Estim Creat Clear Calc Estimated GFR Glucose POC Capillary Glucose 213 H 217 H Calcium Total Bilirubin AST ALT Alkaline Phosphatase Total Protein Albumin Discharge Plan Discharge Attending physician on discharge: Odalys Hernández Consulting providers: Nestor Painter Discharging Clinician: Latisha Pérez Patient Disposition: Home, Self-Care Activity: june shower Diet: heart healthy Discharge Instructions: Your Keppra dose was increased to 750 mg bid. please f/u with neurology. Patient Instructions: Antibiotic Form, Apixaban (By mouth), Heart Failure (GEN) Patient Language: Guamanian Stand Alone Forms: General Discharge Information Follow-up/Referrals: Nestor Painter MD [Physician] - 2 Weeks Silvino Malagon MD [Primary Care Provider] - 2 Weeks Discharge Medications: New levetiracetam 250 mg Tablet 750 mg PO BID Qty: 90 0RF Continued atorvastatin 80 mg tablet 80 mg PO HS venlafaxine 75 mg capsule,extended release 24hr 75 mg PO DAILY Qty: 30 0RF spironolactone 25 mg tablet 25 mg PO DAILY Qty: 30 0RF gabapentin 100 mg capsule 100 mg PO HS Qty: 30 0RF cholecalciferol (vitamin D3) 25 mcg (1,000 unit) Tablet 25 mcg PO DAILY Qty: 30 0RF mirabegron [Myrbetriq] 50 mg Tablet Extended Release 24 Hr 50 mg PO DAILY Qty: 30 0RF levothyroxine 75 mcg tablet 75 mcg PO DAILY@0630 Qty: 30 0RF calcium carbonate-vitamin D3 [Calcium 500 + D] 500 mg-10 mcg (400 unit) Tablet 1 tablet PO DAILY aspirin 81 mg Tablet,Delayed Release (Dr/Ec) 81 mg PO DAILY metoprolol succinate 25 mg Tablet Extended Release 24 Hr 25 mg PO DAILY multivitamin,tx-minerals Tablet 1 tablet PO DAILY insulin lispro [Humalog KwikPen Insulin] 100 unit/mL Insulin Pen 1 sliding scale dose SUBCUT TIDWM Rx Instructions: 0-70=0 units 71-200=0 units 201-250= 4 units 251-300= 5 units 301-350= 6 units 351-400= 8 units 401-999= call empagliflozin 10 mg Tablet 10 mg PO DAILY sacubitril-valsartan 24-26 mg Tablet 1 tablet PO BID montelukast 10 mg tablet 10 mg PO QPM Eliquis 5 mg tablet 5 mg PO Q12H Discontinued levetiracetam [Keppra] 1,000 mg tablet 500 mg PO BID Date of admission: 04/21/24 08:02 Primary Care Provider: Silvino Malagon Admitting Provider: Zacarias Self Attending physician on admission: Zacarias Self Condition: Stable Quality VTE Prophylaxis VTE prophylaxis: mechanical ordered and pharmacologic ordered Hospitalist MIPS Heart Failure (Exclusion) Patient has history of Heart Transplant or Left Ventricular Assistive Device?: No IF YES, STOP HERE Heart Failure (Qualifier) Patient has current or prior documentation of LVEF less than or equal to 40%, or mod/servere depressed LVSF?: No IF NO, STOP HERE
== END 2024-04-23 16:10 ==
LOC: ANHED 04-21 08:07 → ANH3MEDSUR 04-21 13:30
PROVIDERS: Nurse Practitioner; Student in an Organized Health Care Education/Training Program; Admitting Provider Hospitalist; Emergency Provider Emergency Medicine; PCP Family Medicine; Visit Provider Family Medicine
DX: G40.919 Epilepsy, unspecified, intractable, without status epilepticus (principal); E11.22 Type 2 diabetes mellitus with diabetic chronic kidney disease; I13.0 Hypertensive heart and chronic kidney disease with heart failure and stage 1 through stage 4 chronic kidney disease, or unspecified chronic kidney disease; I50.42 Chronic combined systolic (congestive) and diastolic (congestive) heart failure; N18.30 Chronic kidney disease, stage 3 unspecified; E11.42 Type 2 diabetes mellitus with diabetic polyneuropathy; I48.91 Unspecified atrial fibrillation; E03.9 Hypothyroidism, unspecified; E78.5 Hyperlipidemia, unspecified; E55.9 Vitamin D deficiency, unspecified; S12.500A Unspecified displaced fracture of sixth cervical vertebra, initial encounter for closed fracture; X58.XXXA Exposure to other specified factors, initial encounter; Z66 Do not resuscitate; Z79.01 Long term (current) use of anticoagulants; Z79.82 Long term (current) use of aspirin; Z79.4 Long term (current) use of insulin; Z79.899 Other long term (current) drug therapy; Z86.711 Personal history of pulmonary embolism; Z86.73 Personal history of transient ischemic attack (TIA), and cerebral infarction without residual deficits; Z87.891 Personal history of nicotine dependence; Z96.1 Presence of intraocular lens; Z98.42 Cataract extraction status, left eye; Z98.41 Cataract extraction status, right eye
CPT/HCPCS: 36415; 70450; 71045; 80048; 80053; 80177; 81003; 82948; 83735; 84443; 85025; 85610; 85730; 93005; 96365; 97161; 97165; 99285; A9270; G0378; J1815; J1953; J7030

== ENCOUNTER 2024-05-25 13:35 | Outpatient (CLI) | payer MEDICARE, SELFPAY ==
--- OUTSIDE RECORDS SUMMARY | 2024-05-25 13:39 | XMS_ITS | Encounter Summary ---
Author Organization [facility] Address [address] [place] [address] Phone Care Team Providers Care Cigarette Inspector Name Role Phone Salomón Meehan MD Primary Care Provider [phone] Sheng Castillo MD Unavailable [phone] Kg Syed DPM Unavailable Jose De La Fuente MD Unavailable Pawel Wheeler MD Unavailable [phone] Stacie Lemon MD Unavailable Silvino Malagon MD Primary Care Provider [phone] Reason for Visit * Reason Comments Medication Refill Encounter Details Date Type Department Care Team (Late st Contact Info) Description 07/18/2023 [facility] - [place] [address] [place] [address] Salomón Meehan MD [address] [place] [address] Medication Refill Social History Tobacco [...] discontinued on 04/21/2023 by Hazel Acuña APRN, EXPRESSIVE MUSIC THERAPIST for the following reason: Reorder. documented in this encounter Plan of Treatment Upcoming Encounters Date Type Department Care Team (Late st Contact Info) Description 05/28/2024 9:30 AM CDT Office Visit [facility] - Endocrinology - [place] [address] [place] [address] Stacie Lemon MD [address] [address] 08/30/2024 10:00 AM CDT Office Visit [facility] - Neurology - [place] [address] [place] [address] Vickie Stallworth APRN, PERSONNEL SUPERVISOR [address] [place] [address] documented as of this encounter Visit Diagnoses Diagnosis Elevated brain natriuretic peptide (BNP) level Other nonspecific findings on examination of blood documented in this encounter Additional Health Concerns Infection Onset Date Last Indicated Resolved Time Respiratory Rule-Out 07/15/2023 07/15/2023 024 1:25 PM CDT Respiratory Rule-Out 08/23/2023 08/23/2023 024 6:42 AM CDT Assessment Noted Time PHQ-9 Depression Total Score: 0 02/08/19 10:13 AM LAND SURVEYOR MANAGER documented as of this encounter Care Teams Cigarette Inspector Relationship Specialty Start Date End Date Salomón Meehan MD [address] [place] [address] PCP - General Internal Medicine 10/20/14 11/14/23 Silvino Malagon MD [address] [place] [address] PCP - General Pediatrics 11/29/23 Sheng Castillo MD [address] [place] [address] Ophthalmology 06/28/19 Kg Syed DPM [address] [place] [address] Consulting Physician Podiatry 01/14/21 Jose De La Fuente MD [address] [place] [address] Consulting Physician Cardiovascular Disease - Cardiology 02/23/22 Pawel Wolfe MD [address] [place] [address] Consulting Physician Neurology 11/04/22 Stacie Lemon MD [address] [address] Consulting Physician Endocrinology 06/16/23 documented as of this encounter
--- OUTSIDE RECORDS SUMMARY | 2024-05-25 13:39 | XMS_ITS | Encounter Summary ---
Author Organization [facility] Address [address] [place] [address] Phone Care Team Providers Care Stick Feeder Name Role Phone Salomón Meehan MD Primary Care Provider [phone] Sheng Castillo MD Unavailable [phone] Kg Syed DPM Unavailable [phone] Jose De La Fuente MD Unavailable Pawel Wheeler MD Unavailable [phone] Stacie Lemon MD Unavailable Silvino Malagon MD Primary Care Provider [phone] Encounter Details Date Type Department Care Team (Latest Contact Info) Description 05/27/2022 Transcribe Orders [facility] Preop/Pacu II [address] [place] [address] Jose De La Fuente MD [...] Description 05/28/2024 9:30 AM CDT Office Visit [facility] - Endocrinology - [place] [address] [place] [address] Stacie Lemon MD [address] [address] 08/30/2024 10:00 AM CDT Office Visit [facility] - Neurology - [place] [address] [place] [address] Vickie Stallworth APRN, MUSIC PROMOTER [address] [place] [address] documented as of this encounter Results * PROTIME (PT) (PROTHROMBIN TIME) (06/01/2022 10:58 AM CDT) PROTIME-PATIENT 12.8 11.6 - 14.8 sec 06/01/2022 11:33 AM CDT [facility] INR 1.0 0.9 - 1.2 06/01/2022 11:33 AM CDT [facility] Comment: Therapeutic Ranges INR = 2.0-3.0: Venous thromb, atrial fib, pul embolism, tissue heart valve, ami. INR = 2.5-3.5: Mechanical heart valve Critical value for INR is >/= 4.5 Blood Venipuncture / Unknown 06/01/2022 10:58 AM CDT 06/01/2022 11:06 AM CDT Jose Orantes MD HEMATOLOGY ORDERABLES F inal Result [facility] [address] [place] [address] * (ABNORMAL) BASIC METABOLIC PANEL W/ CALCIUM TOTAL (06/01/2022 10:58 AM CDT) SODIUM 136 136 - 144 mmol/L 06/01/2022 11:29 AM CDT [facility] POTASSIUM 5.3(H) 3.5 - 5.1 mmol/L 06/01/2022 11:29 AM CDT [facility] CHLORIDE 101 100 - 110 mmol/L 06/01/2022 11:29 AM CDT [facility] CO2, VENOUS 27 22 - 32 mmol/L 06/01/2022 11:29 AM CDT [facility] ANION GAP 13.3 8.0 - 20.0 mmol/L 06/01/2022 11:29 AM CDT [facility] GLUCOSE 204(H) 70 - 99 mg/dL 06/01/2022 11:29 AM CDT [facility] BUN 24(H) 8 - 23 mg/dL 06/01/2022 11:29 AM CDT [facility] CREATININE, BLOOD 1.36(H) 0.60 - 1.10 mg/dL 06/01/2022 11:29 AM CDT [facility] BUN/CREATININE RATIO 18 12 - 20 ratio 06/01/2022 11:29 AM CDT [facility] CALCIUM 9.9 8.9 - 10.3 mg/dL 06/01/2022 11:29 AM CDT [facility] IS THE PATIENT REQUIRED TO BE FASTING? No 06/01/2022 11:29 AM CDT [facility] GFR, ESTIMATED 39(L) >=60 06/01/2022 11:29 AM CDT [facility] Comment: Creatinine Clearance is the preferred criteria for selecting drug dose adjustments in renally impaired patients. The GFR is provided as additional pertinent clinical information. GFR is reported in mL/min/1.73 sq m. Calculation based on the Chronic Kidney Disease Epidemiology Collaboration (CKD- EPI) equation refit without adjustment for race. GFR, EST. 45(L) >=60 023 11:29 AM CDT [facility] GFR, EST. NONAFRICAN 37(L) >=60 06/01/2022 11:29 AM CDT [facility] Blood Venipuncture / Unknown 06/01/2022 10:58 AM CDT 06/01/2022 11:07 AM CDT us Jose Orantes MD CHEMISTRY ORDERABLES Fi nal Result [facility] [address] [place] [address] documented in this encounter Visit Diagnoses Diagnosis [...] documented as of this encounter Care Teams Stick Feeder Relationship Specialty Start Date End Date Salomón Meehan MD [address] [place] [address] PCP - General Internal Medicine 10/20/14 11/14/23 Silvino Malagon MD [address] [place] [address] PCP - General Pediatrics 11/29/23 Sheng Castillo MD [address] [place] [address] Ophthalmology 06/28/19 Kg Syed, ANA MARIAM [address] [place] [address] Consulting Physician Podiatry 01/14/21 Jose De La Fuente MD [address] [place] [address] Consulting Physician Cardiovascular Disease - Cardiology 02/23/22 Pawel Wolfe MD [address] [place] [address] Consulting Physician Neurology 11/04/22 Stacie Lemon MD [address] [address] Consulting Physician Endocrinology 06/16/23 documented as of this encounter
--- OUTSIDE RECORDS SUMMARY | 2024-05-25 13:39 | XMS_ITS | Encounter Summary ---
Author Organization [facility] Address [address] [place] [address] Phone Care Team Providers Care Dentist Name Role Phone Salomón Meehan MD Primary Care Provider [phone] Sheng Catsillo MD Unavailable [phone] Kg Syed DPM Unavailable [phone] Jose De La Fuente MD Unavailable Pawel Wheeler MD Unavailable [phone] Stacie Lemon MD Unavailable Silvino Malagon MD Primary Care Provider [phone] Reason for Visit * Reason Comments Medication Refill Encounter Details Date Type Department Care Team (Late st Contact Info) Description 11/14[facility] - [place] [address] [place] [address] Salomón Meehan MD [address] [place] [address] Medication Refill Social History Tobacco [...] discontinued on 04/21/2023 by Hazel Acuña APRN, ETCHER APPRENTICE PHOTOENGRAVING documented in this encounter Plan of Treatment Upcoming Encounters Date Type Department Care Team (Late st Contact Info) Description 05/28/2024 9:30 AM CDT Office Visit [facility] - Endocrinology - [place] [address] [place] [address] Stacie Lemon MD #[address] [address] 08/30/2024 10:00 AM CDT [facility] - Neurology - [place] [address] [place] [address] Vickie Stallworth APRN, ENTRY EXAMINER #2 [place] [address] documented as of this encounter Visit Diagnoses Diagnosis Elevated brain natriuretic peptide (BNP) level Other nonspecific findings on examination of blood documented in this encounter Additional Health Concerns Assessment Noted Time PHQ-9 Depression Total Score: 0 02/08/19 24 10:13 AM FACULTY PHYSICIAN documented as of this encounter Care Teams Dentist Relationship Specialty Start Date End Date Salomón Meehan MD [address] [place] [address] PCP - General Internal Medicine 10/20/14 11/14/23 Silvino Malagon MD [address] [place] [address] PCP - General Pediatrics 11/29/23 Sheng Castillo MD [address] [place] [address] Ophthalmology 06/28/19 Kg Syed DPM [address] [place] [address] Consulting Physician Podiatry 01/14/21 Jose De La Fuente MD [address] [place] [address] Consulting Physician Cardiovascular Disease - Cardiology 02/23/22 Pawel Wolfe MD #1 [place] [address] Consulting Physician Neurology 11/04/22 Stacie Lemon MD #[address] [address] Consulting Physician Endocrinology 06/16/23 documented as of this encounter
--- OUTSIDE RECORDS SUMMARY | 2024-05-25 13:39 | XMS_ITS | Encounter Summary ---
Author Organization [facility] Address [address] [place] [address] Phone Care Team Providers Care Brush Hand Name Role Phone Salomón Meehan MD Primary Care Provider [phone] Sheng Castillo MD Unavailable [phone] Kg Syed DPM Unavailable Jose De La Fuente MD Unavailable Pawel Wheeler MD Unavailable [phone] Stacie Lemon MD Unavailable Silvino Malagon MD Primary Care Provider [phone] Reason for Visit * Reason Comments Medication Refill Encounter Details Date Type Department Care Team (Late st Contact Info) Description 10/28/2023 Refill [facility] - Primary Care - [place] [address] [place] [address] Salomón Meehan MD [address] [place] [address] Medication Refill Social History Tobacco [...] Description 05/28/2024 9:30 AM CDT Office Visit [facility] - Endocrinology - [place] [address] [place] [address] Stacie Lemon MD #[address] [address] 08/30/2024 10:00 AM CDT Office Visit [facility] - Neurology - [place] [address] [place] [address] Vickie Stallworth APRN, DEPLOYMENT SPECIALIST #2 [place] [address] documented as of this encounter Visit Diagnoses Diagnosis Elevated brain natriuretic peptide (BNP) level Other nonspecific findings on examination of blood documented in this encounter Additional Health Concerns Assessment Noted Time PHQ-9 Depression Total Score: 0 02/08/19 10:13 AM LABORER DRYING 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 documented as of this encounter Care Teams Brush Hand Relationship Specialty Start Date End Date Salomón Meehan MD [address] [place] [address] PCP - General Internal Medicine 10/20/14 11/14/23 Silvino Malagon MD [address] [place] [address] PCP - General Pediatrics 11/29/23 Sheng Castillo MD [address] [place] [address] Ophthalmology 06/28/19 Kg Syed DPM [address] [place] [address] Consulting Physician Podiatry 01/14/21 Jose De La Fuente MD [address] [place] [address] Consulting Physician Cardiovascular Disease - Cardiology 02/23/22 Pawel Wolfe MD #1 [place] [address] Consulting Physician Neurology 11/04/22 Stacie Lemon MD #[address] [phone] Consulting Physician Endocrinology 06/16/23 documented as of this encounter
--- OUTSIDE RECORDS SUMMARY | 2024-05-25 13:39 | XMS_ITS | Clinical Summary ---
Author Organization [facility] Address [address] [place] [address] Care Team Providers Care Registered Associate Name Role Phone Salomón Meehan MD Primary Care Provider [phone] Allergies Active Allergy Reactions Criticality Noted Date [...] Done Comments DTaP, Tdap and Td Vaccines ( 1 - Tdap) 1959 Annual Medicare Wellness Visit 02/03/2004 RSV Immunization or 60+ Years (1 - 1-dose 75+ series) 2014 COVID-19 Vaccine (2023-2 5 season) 2023 Pneumococcal Vaccine: 50+ Years Completed 07/17/2015, 12/04/2009 Zoster Vaccines Completed 06/23/2018, 01/18/2018, 04/16/2016 Meningococcal B Vaccine Aged Out No l onger eligible based on patient's age to complete this topic Meningococcal Vaccine Aged Out No tunde sally eligible based on patient's age to complete this topic RSV Immunizations Under 20 Months Aged Out No longer eligible b ased on patient's age to complete this topic Medical Devices Implanted Type Area Security Orderly Device Identifier Shelf Expiration Date Model / Serial / Lot Lens Lens Iol Alfonso [id number] - [id number] Implanted:Qty: 1 on 07/24/2019 by Sheng Castillo MD at [facility] Lens Left: Eye [employer] 08/07/2023 [id number] / [id number] / N/A Description:Implant verified by MD Insurance Care Teams Registered Associate Relationship Specialty Start Date End Date Salomón Meehan MD PCP - General INTERNAL MEDICINE 04/21/19
--- OUTSIDE RECORDS SUMMARY | 2024-05-25 13:39 | XMS_ITS | Encounter Summary ---
Author Organization [facility] Address [address] [place] [address] Phone Care Team Providers Care Visiting Teacher Name Role Phone Salomón Meehan MD Primary Care Provider [phone] Sheng Castillo MD Unavailable [phone] Kg Syed DPM Unavailable Jose De La Fuente MD Unavailable Pawel Wheeler MD Unavailable Stacie Lemon MD Unavailable Silvino Malagon MD Primary Care Provider [phone] Reason for Visit * Reason Comments Medication Refill Encounter Details Date Type Department Care Team (Late st Contact Info) Description 05/06/2021 [facility]ill [facility] [address] [place] [address] Salomón Meehan MD [address] [place] [address] Medication Refill Social History Tobacco [...] COVID-19? No / Unsure 04/09/2021 12:52 PM BOBBIN STRIPPER documented as of this encounter Miscellaneous Notes * Telephone Encounter - Ilana Funes RN - 05/07/2021 8:02 AM CDT Medication approved and signed per standing order protocol. documented in this encounter Plan of Treatment Upcoming Encounters Date Type Department Care Team (Late st Contact Info) Description 05/28/2024 9:30 AM CDT [facility] - Endocrinology - [place] [address] [place] [address] Stacie Lemon MD #[address] [address] 08/30/2024 10:00 AM CDT [facility] - [place] [address] [place] [address] Vickie Stallworth APRN, DE ICER FINISHER #2 [place] [address] documented as of this encounter Visit Diagnoses Not on filedocumented in this encounter Additional Health Concerns Infection Onset Date Last Indicated Resolved Time COVID - 19 12/27/2021 12/27/2021 12/28/2021 8:17 AM BOBBIN STRIPPER Respiratory Rule-Out 12/27/2021 12/27/2021 022 12:56 AM BOBBIN STRIPPER Respiratory Rule Out - RPA 12/28/2021 12/28/2021 1 02/27/2021 10:34 PM BOBBIN STRIPPER RSV 12/28/2021 12/28/2021 01/25/2022 12:1 6 AM BOBBIN STRIPPER Respiratory Rule-Out 07/15/2023 07/15/2023 024 1:25 PM CDT Respiratory Rule-Out 08/23/2023 08/23/2023 024 6:42 AM CDT Assessment Noted Time PHQ-9 Depression Total Score: 0 11/17/19 19 10:00 AM CDT documented as of this encounter Care Teams Visiting Teacher Relationship Specialty Start Date End Date Salomón Meehan MD [address] [place] [address] PCP - General Internal Medicine 10/20/14 11/14/23 Silvino Malagon MD [address] [place] [address] PCP - General Pediatrics 11/29/23 Sheng Castillo MD [address] [place] [address] Ophthalmology 06/28/19 Kg Syed DPM [address] [place] [address] Consulting Physician Podiatry 01/14/21 Jose De La Fuente MD [address] [place] [address] Consulting Physician Cardiovascular Disease - Cardiology 02/23/22 Pawel Wolfe MD #1 [place] [address] Consulting Physician Neurology 11/04/22 Stacie Lemon MD #[address] [place] [address] [phone] Consulting Physician Endocrinology 06/16/23 documented as of this encounter
--- OUTSIDE RECORDS SUMMARY | 2024-05-25 13:39 | XMS_ITS | Encounter Summary ---
Author Organization [facility] Address [address] [place] [place] [address] Phone Care Team Providers Care Member Service Specialist Name Role Phone Salomón Meehan MD Primary Care Provider [phone] Sheng Castillo MD Unavailable [phone] Kg Syed DPM Unavailable Jose De La Fuente MD Unavailable Pawel Wheeler MD Unavailable [phone] Stacie Lemon MD Unavailable Silvino Malagon MD Primary Care Provider [phone] Reason for Visit * Reason Comments Medication Refill Encounter Details Date Type Department Care Team (Late st Contact Info) Description 10/29/2020 Refill [facility] [address] [place] [address] Salomón Meehan MD [address] [place] [address] Medication Refill Social History Tobacco [...] 05/28/2024 9:30 AM CDT Office Visit [facility] Medical [facility] - Endocrinology - [place] [address]2 [place] [address] Stacie Lemon MD #[address] [place] [address] 08/30/2024 10:00 AM CDT Office Visit [facility] - Neurology - [place] [address] [place] [address] Vickie Stallworth, LOCK SETTER, DIRECTOR OF EVENT MARKETING #[address] [place] [address] documented as of this encounter Visit Diagnoses Not on filedocumented in this encounter Additional Health Concerns Infection Onset Date Last Indicated Resolved Time COVID - 19 12/27/2021 12/27/2021 12/28/2021 8:17 AM SENIOR UI UX DEVELOPER Respiratory Rule-Out 12/27/2021 12/27/2021 022 12:56 AM SENIOR UI UX DEVELOPER Respiratory Rule Out - RPA 12/28/2021 12/28/2021 1 02/27/2021 10:34 PM SENIOR UI UX DEVELOPER RSV 12/28/2021 12/28/2021 01/25/2022 12:1 6 AM SENIOR UI UX DEVELOPER Respiratory Rule-Out 07/15/2023 07/15/2023 024 1:25 PM CDT Respiratory Rule-Out 08/23/2023 08/23/2023 024 6:42 AM CDT Assessment Noted Time PHQ-9 Depression Total Score: 0 11/17/19 10:00 AM CDT documented as of this encounter Care Teams Member Service Specialist Relationship Specialty Start Date End Date Salomón Meehan MD [address] [place] [address] PCP - General Internal Medicine 10/20/14 11/14/23 Silvino Malagon MD [address] [place] [address] PCP - General Pediatrics 11/29/23 Sheng Castillo MD [address] [place] [address] Ophthalmology 06/28/19 Kg Syed DPM [address] [place] [address] Consulting Physician Podiatry 01/14/21 Jose De La Fuente MD [address] [place] [address] Consulting Physician Cardiovascular Disease - Cardiology 02/23/22 Pawel Wolfe MD #[address] [place] [address] Consulting Physician Neurology 11/04/22 Stacie Lemon MD #[address] [address] Consulting Physician Endocrinology 06/16/23 documented as of this encounter
--- OUTSIDE RECORDS SUMMARY | 2024-05-25 13:39 | XMS_ITS | Encounter Summary ---
Author Organization [facility] Address [address] [place] [address] Phone Care Team Providers Care Felling Bucking Supervisor Name Role Phone Salomón Meehan MD Primary Care Provider [phone] Sheng Castillo MD Unavailable [phone] Kg Syed DPM Unavailable Jose De La Fuente MD Unavailable Pawel Wheeler MD Unavailable [phone] Stacie Lemon MD Unavailable Silvino Malagon MD Primary Care Provider [phone] Encounter Details Date Type Department Care Team (Late st Contact Info) Description 01/18/2022 Lab Requisition [facility] [address] [place] [address] Salomón Meehan MD [address] [place] [address] Pneumonia, unspecified organism Social History [...] Coronavirus/COVID-19? No / Unsure 01/21/2022 8:44 AM HISTORIOGRAPHER documented as of this encounter Plan of Treatment Upcoming Encounters Date Type Department Care Team (Late st Contact Info) Description 05/28/2024 9:30 AM CDT Office Visit [facility] - [facility]inology - [place] [address] [place] [address] Stacie Lemon MD #[address] [address] 08/30/2024 10:00 AM CDT [facility] [place] [address] [place] [address] Vickie Stallworth APRN, SHIPPING SPECIALIST [address] [place] [address] documented as of this encounter Procedures Procedure Name Priority Date/Time Associated Diagnosis Comments CBC WITH AUTO DIFFERENTIAL Routine 01/18/2022 10:09 AM HISTORIOGRAPHER Pneumonia, unspecified organism COMPLETE BLOOD COUNT (CBC) WITH DIFF Routine 01/18/2022 10:09 AM HISTORIOGRAPHER Pneumonia, unspecified organism BASIC METABOLIC PANEL W/ CALCIUM TOTAL Routine 01/18/2022 10:09 AM HISTORIOGRAPHER Pneumonia, unspecified organism documented in this encounter Results * (ABNORMAL) CBC WITH AUTO DIFFERENTIAL (01/18/2022 10:09 AM HISTORIOGRAPHER) WBC 7.38 4.00 - 12.00 10(3)/mcL 01/18/2022 11:15 AM [facility] RBC 4.40 3.80 - 5.30 10(6)/mcL 01/18/2022 11:15 AM [facility] HEMOGLOBIN (HGB) 12.4 12.0 - 15.8 g/dL 01/18/2022 11:15 AM [facility] HEMATOCRIT (HCT) 40.7 36.0 - 47.0 % 01/18/2022 11:15 AM [facility] MCV 92.5 82.0 - 96.0 fL 01/18/2022 11:15 AM [facility] MCH 28.2 26.0 - 34.0 pg 01/18/2022 11:15 AM [facility] MCHC 30.5(L) 31.0 - 36.0 g/dL 01/18/2022 11:15 AM [facility] PLATELET COUNT 256 140 - 440 10(3)/[facility] 01/18/2022 11:15 AM [facility] RDW 13.9 11.8 - 15.5 % 01/18/2022 11:15 AM [facility] MPV 9.9 9.7 - 12.4 fL 01/18/2022 11:15 AM [facility] NEUTROPHILS 66.1 47.0 - 73.0 % 01/18/2022 11:15 AM [facility] LYMPHOCYTES 24.1 18.0 - 42.0 % 01/18/2022 11:15 AM [facility] MONOCYTES 6.2 4.0 - 12.0 % 01/18/2022 11:15 AM [facility] EOSINOPHILS 2.8 0.0 - 5.0 % 01/18/2022 11:15 AM [facility] BASOPHILS 0.8 0.0 - 1.0 % 01/18/2022 11:15 AM [facility] ABSOLUTE NEUTROPHILS 4.87 1.60 - 7.70 10(3)/[facility] 01/18/2022 11:15 AM HISTORIOGRAPHER [facility] ABSOLUTE LYMPHOCYTES 1.78 1.30 - 3.20 10(3)/[facility] 01/18/2022 11:15 AM HISTORIOGRAPHER [facility] ABSOLUTE MONOCYTES 0.46 0.20 - 1.00 10(3)/[facility] 01/18/2022 11:15 AM HISTORIOGRAPHER [facility] ABSOLUTE EOSINOPHIL 0.21 0.00 - 0.40 10(3)/[facility] 01/18/2022 11:15 AM HISTORIOGRAPHER [facility] ABSOLUTE BASOPHILS 0.06 0.00 - 0.10 10(3)/[facility] 01/18/2022 11:15 AM [facility] NRBC PER 100 WBC 0 01/19/20 11:15 AM [facility] Blood No Phlebotomy Charged / Unknown 01/18/2022 10:09 AM [facility] 01/18/2022 11:12 AM [facility] us Salomón Meehan MD HEMATOLOGY ORDERABLES Fin al Result [facility] #[address] [place] [address] * (ABNORMAL) BASIC METABOLIC PANEL W/ CALCIUM TOTAL (01/18/2022 10:09 AM HISTORIOGRAPHER) SODIUM 136 136 - 144 mmol/L 01/18/2022 11:33 AM [facility] POTASSIUM 5.5(H) 3.5 - 5.1 mmol/L 01/18/2022 11:33 AM [facility] CHLORIDE 99(L) 100 - 110 mmol/L 01/18/2022 11:33 AM [facility] CO2, VENOUS 27 22 - 32 mmol/L 01/18/2022 11:33 AM [facility] ANION GAP 15.5 8.0 - 20.0 mmol/L 01/18/2022 11:33 AM [facility] GLUCOSE 234(H) 70 - 99 mg/dL 01/18/2022 11:33 AM HISTORIOGRAPHER [facility] BUN 20 8 - 23 mg/dL 01/18/2022 11:33 AM HISTORIOGRAPHER [facility] CREATININE, BLOOD 1.53(H) 0.60 - 1.10 mg/dL 01/18/2022 11:33 AM HISTORIOGRAPHER [facility] BUN/CREATININE RATIO 13 12 - 20 ratio 01/18/2022 11:33 AM HISTORIOGRAPHER [facility] CALCIUM 10.3 8.9 - 10.3 mg/dL 01/18/2022 11:33 AM HISTORIOGRAPHER [facility] GFR, ESTIMATED 34(L) >=60 01/18/2022 11:33 AM HISTORIOGRAPHER [facility] Comment: Creatinine Clearance is the preferred criteria for selecting drug dose adjustments in renally impaired patients. The GFR is provided as additional pertinent clinical information. GFR is reported in mL/min/1.73 sq m. Calculation based on the Chronic Kidney Disease Epidemiology Collaboration (CKD- EPI) equation refit without adjustment for race. GFR, EST. 39(L) >=60 022 11:33 AM HISTORIOGRAPHER [facility] GFR, EST. NONAFRICAN 32(L) >=60 01/18/2022 11:33 AM HISTORIOGRAPHER [facility] Blood No Phlebotomy Charged / Unknown 01/18/2022 10:09 AM HISTORIOGRAPHER 01/18/2022 11:12 AM HISTORIOGRAPHER us Salomón Meehan MD CHEMISTRY ORDERABLES Arianne l Result [facility] [address] [place] [address] documented in this encounter Visit Diagnoses Diagnosis Pneumonia, unspecified organism documented in this encounter Additional Health Concerns Infection Onset Date Last Indicated Resolved Time RSV 12/28/2021 12/28/2021 01/25/2022 12:1 6 AM HISTORIOGRAPHER Respiratory Rule-Out 07/15/2023 07/15/2023 024 1:25 PM CDT Respiratory Rule-Out 08/23/2023 08/23/2023 024 6:42 AM CDT Assessment Noted Time PHQ-9 Depression Total Score: 0 11/17/19 19 10:00 AM CDT documented as of this encounter Care Teams Felling Bucking Supervisor Relationship Specialty Start Date End Date Salomón Meehan MD [address] [place] [address] PCP - General Internal Medicine 10/20/14 11/14/23 Silvino Malagon MD [address] [place] [address] PCP - General Pediatrics 11/29/23 Sheng Castillo MD [address] [place] [address] Ophthalmology 06/28/19 Kg Syed DPM [address] [place] [address] Consulting Physician Podiatry 01/14/21 Jose De La Fuente MD [address] [place] [address] Consulting Physician Cardiovascular Disease - Cardiology 02/23/22 Pawel Wolfe MD #[address] [place] [address] Consulting Physician Neurology 11/04/22 Stacie Lemon MD #[address] [phone] Consulting Physician Endocrinology 06/16/23 documented as of this encounter
--- OUTSIDE RECORDS SUMMARY | 2024-05-25 13:39 | XMS_ITS | Encounter Summary ---
Author Organization [facility] Address [address] [place] [address] Phone Care Team Providers Care Horticulture/Floriculture Teacher Name Role Phone Salomón Meehan MD Primary Care Provider [phone] Sheng Castillo MD Unavailable [phone] Kg Syed DPM Unavailable [phone] Jose De La Fuente MD Unavailable Pawel Wheeler MD Unavailable [phone] Stacie Lemon MD Unavailable Silvino Malagon MD Primary Care Provider [phone] Reason for Visit * Reason Comments Medication Refill Encounter Details Date Type Department Care Team (Late st Contact Info) Description 11/09/2020 Refill [facility] - Primary Care - [place] [address] [place] [address] Salomón Meehan MD [address] [place] [address] Medication Refill Social History Tobacco [...] Office Visit [facility] - Endocrinology - [place] [address] [place] [address] Stacie Lemon MD #[address] [address] 08/30/2024 10:00 AM CDT Office Visit [facility] - Neurology [facility] #2 [place] [address] Vickie Stallworth APRN, TRACKWALKER #[address] [place] [address] documented as of this encounter Visit Diagnoses Not on filedocumented in this encounter Additional Health Concerns Infection Onset Date Last Indicated Resolved Time COVID - 19 12/27/2021 12/27/2021 12/28/2021 8:17 AM PROJECT DEVELOPMENT DIRECTOR Respiratory Rule-Out 12/27/2021 12/27/2021 022 12:56 AM PROJECT DEVELOPMENT DIRECTOR Respiratory Rule Out - RPA 12/28/2021 12/28/2021 1 02/27/2021 10:34 PM PROJECT DEVELOPMENT DIRECTOR RSV 12/28/2021 12/28/2021 01/25/2022 12:1 6 AM PROJECT DEVELOPMENT DIRECTOR Respiratory Rule-Out 07/15/2023 07/15/2023 024 1:25 PM CDT Respiratory Rule-Out 08/23/2023 08/23/2023 024 6:42 AM CDT Assessment Noted Time PHQ-9 Depression Total Score: 0 11/17/19 10:00 AM CDT documented as of this encounter Care Teams Horticulture/Floriculture Teacher Relationship Specialty Start Date End Date Salomón Meehan MD [address] [place] [address] PCP - General Internal Medicine 10/20/14 11/14/23 Silvino Malagon MD [address] [place] [address] PCP - General Pediatrics 11/29/23 Sheng Castillo MD [address] [place] [address] Ophthalmology 06/28/19 Kg Syed DPM [address] [place] [address] Consulting Physician Podiatry 01/14/21 Jose De La Fuente MD [address] [place] [address] Consulting Physician Cardiovascular Disease - Cardiology 02/23/22 Pawel Wolfe MD [address] [place] [address] Consulting Physician Neurology 11/04/22 Stacie Lemon MD [address] [address] [address] Consulting Physician Endocrinology 06/16/23 documented as of this encounter
--- OUTSIDE RECORDS SUMMARY | 2024-05-25 13:39 | XMS_ITS | Encounter Summary ---
Author Organization [facility] Address [address] [place] [address] Phone Care Team Providers Care Sommelier Name Role Phone Salomón Meehan MD Primary Care Provider [phone] Sheng Castillo MD Unavailable [phone] Kg Syed DPM Unavailable Jose De La Fuente MD Unavailable Pawel Wheeler MD Unavailable [phone] Stacie Lemon MD Unavailable Silvino Malagon MD Primary Care Provider [phone] Reason for Visit * Reason Comments Medication Refill Encounter Details Date Type Department Care Team (Late st Contact Info) Description 02/28/2022 Refill [facility] - Primary Care - [place] [address] [place] [address] Salomón Meehan MD [address] [place] [address] Medication Refill Social History Tobacco [...] Coronavirus/COVID-19? No / Unsure 02/25/2022 1:16 PM CLINICAL APPLICATION CONSULTANT documented as of this encounter Miscellaneous Notes * Telephone Encounter - Pepper Godinez RN - 03/01/2022 9:12 AM CLINICAL APPLICATION CONSULTANT Refill requested too soon. ICAL APPLICATION CONSULTANT documented in this encounter Plan of Treatment Upcoming Encounters Date Type Department Care Team (Late st Contact Info) Description 05/28/2024 9:30 AM CDT Office Visit [facility] - Endocrinology - [place] [address] [place] [address] Stacie Lemon MD #[address] [address] 08/30/2024 10:00 AM CDT Office Visit [facility] - Neurology - [place] [address] [place] [address] Vickie Stallworth APRN, FUR BLOWER [address]2 [place] [address] documented as of this encounter Visit Diagnoses Not on filedocumented in this encounter Additional Health Concerns Infection Onset Date Last Indicated Resolved Time Respiratory Rule-Out 07/15/2023 07/15/2023 024 1:25 PM CDT Respiratory Rule-Out 08/23/2023 08/23/2023 024 6:42 AM CDT Assessment Noted Time PHQ-9 Depression Total Score: 0 11/17/19 19 10:00 AM CDT documented as of this encounter Care Teams Sommelier Relationship Specialty Start Date End Date Salomón Meehan MD [address] [place] [address] PCP - General Internal Medicine 10/20/14 11/14/23 Silvino Malagon MD [address] [place] [address] PCP - General Pediatrics 11/29/23 Sheng Castillo MD [address] [place] [address] Ophthalmology 06/28/19 Kg Syed DPM [address] [place] [address] Consulting Physician Podiatry 01/14/21 Jose De La Fuente MD [address] [place] [address] Consulting Physician Cardiovascular Disease - Cardiology 02/23/22 Pawel Wolfe MD #1 [place] [address] Consulting Physician Neurology 11/04/22 Stacie Lemon MD #[address] [address] Consulting Physician Endocrinology 06/16/23 documented as of this encounter
--- OUTSIDE RECORDS SUMMARY | 2024-05-25 13:39 | XMS_ITS | Clinical Summary ---
Author Organization [facility] Address [address], [facility] [address] [place] [address] Phone Care Team Providers Care Advertising Dispatch Clerk Name Role Phone Sheng Castillo MD Unavailable [phone] Kg Syed DPAgusto Unavailable [phone] Jose De La Fuente MD Unavailable Pawel Wheeler MD Unavailable [phone] Stacie Lemon MD Unavailable Silvino Malagon MD Primary Care Provider Allergies Active Allergy Reactions Criticality Noted Date Comments Naproxen Palpitations,Other ( see Comments) Low Altered Heart Rate Medications therapeutic multivitamin-mi nerals (THERAGRAN-M) Tablet Take 1 Tablet by mouth daily. Active Cholecalciferol (VITAMIN D3 PO) Take 1,000 Units by mouth daily. Active Calcium Carb-Cholecalci ferol (CALCIUM 500 + D PO) Take 1 Tablet by mouth daily. Active Blood Glucose Monitoring Suppl (Kineto WirelessTouch Verio) w/Device KitIndications: Type 2 diabetes mellitus without complication, with long-term current use of insulin Test twice daily. 1 Kit 023 Active sacubitril-vals cassandra (Entresto) 24-26 MG TabletIndicatio ns:Congestive heart failure, unspecified HF chronicity, unspecified heart failure type (HCC) Take 1 Tablet by mouth 2 times daily. 180 Tablet 4 023 Active montelukast (SINGULAIR) 10 MG Tablet Take 1 Tablet by mouth every morning. 90 Tablet 3 024 Active spironolactone (ALDACTONE) 25 MG TabletIndicatio ns:Elevated brain natriuretic peptide (BNP) level TAKE 1 TABLET BY MOUTH EVERY DAY 90 Tablet 1 024 Active atorvastatin (LIPITOR) 80 MG Tablet TAKE 1 TABLET BY MOUTH NIGHTLY 90 Tablet 3 024 Active venlafaxine (EFFEXOR-XR) 75 MG CAPSULE SR 24 HR TAKE 1 CAPSULE BY MOUTH EVERY DAY 90 Capsule 3 024 Active apixaban (ELIQUIS) 5 MG TabletIndicatio ns:Atrial Fibrillation Take 1 Tablet by mouth 2 times daily. Indications: Atrial Fibrillation 180 Tablet 1 024 Active Mirabegron ER (Myrbetriq) 50 MG TABLET SR 24 HR Take 50 mg by mouth daily. 30 Tablet 3 024 Active gabapentin (NEURONTIN) 100 MG Capsule TAKE 1 CAPSULE BY MOUTH EVERY DAY AT NIGHT 90 Capsule 1 024 Active Glucose Blood (OneTouch Verio) StripIndication s:Type 2 diabetes mellitus without complication, with long-term current use of insulin Test three times daily. 200 Each 3 024 Active B-D ULTRAFINE III SHORT PEN 31G X 8 MM MiscIndications :Type 2 diabetes mellitus with diabetic neuropathy, unspecified (HCC) USE TO INJECT INSULIN FOUR TIMES DAILY 400 Pen Needle 024 Active levothyroxine (SYNTHROID) 75 MCG Tablet TAKE 1 TABLET BY MOUTH EVERY DAY 90 Tablet 1 024 Active Empagliflozin (JARDIANCE PO) Take by mouth. Active insulin lispro prot & lispro (HumaLOG Mix 75/25 KwikPen) (75-25) 100 UNIT/ML Suspension Pen-injector 26 units at breakfast and 10 units at dinner 30 mL 025 Active metoprolol tartrate (LOPRESSOR) 25 MG Tablet Take 25 mg by mouth 2 times daily. Active levETIRAcetam (Keppra) 750 MG TabletIndicatio ns:Focal seizure (HCC) Take 1 Tablet by mouth 2 times daily. 60 Tablet 1 025 Active Lancets (OneTouch Delica Plus [id number]) MiscIndications :Type 2 diabetes mellitus without complication, with long-term current use of insulin TEST TWICE A DAY E11.9, insulin dependent 200 Each 3 025 Active OneTouch Delica Lancets 33G MiscIndications :Type 2 diabetes mellitus without complication, with long-term current use of insulin Test twice daily. 200 Lancet 3 024 2024 Discontinued levETIRAcetam (Keppra) 500 MG Tablet Take 500 mg by mouth 2 times daily. 2024 Discontinued(D ose adjustment) Active Problems Problem Noted Date Diagnosed Date [...] level 12/28/2021 07/27/2022 Diabetic neuropathy 12/28/2021 01/20/20 22 COPD exacerbation 02/13/2019 07/22/2020 Acute respiratory failure with hypoxia 02/13/2019 06/28/2019 Multifocal pneumonia 02/13/2019 020 Hyponatremia 02/13/2019 06/28/2019 Leukocytosis 02/13/2019 06/28/2019 Encounters Date Type Department Care Team Description 05/15/2024 Refill [facility] - Primary Care - [place] [address] [place] [address] Stacie Lemon MD Medication Refill 05/11/[address] [facility] [place] [address] [place] [address] Salomón Meehan MD Medication Refill 04/30/2024 Refill [facility] #2 [place] [address] Pawel Wolfe MD Medication Refill 03/30/2024 [facility] [place] [address] [facility] [place] [address] Salomón Meehan MD Medication Refill 03/01/2024 10:30 AM LOADING SHOVEL OILER Office Visit [facility] [address] [place] [address] Pawel Wolfe MD Focal seizure (HCC) (Primary Dx); History of ischemic stroke; Paroxysmal A-fib (HCC); Chronic systolic congestive heart failure (HCC) Discharge Disposition: Discharged to home or Selfcare 03/01/2024 Travel from Last 3 Months Immunizations Immunization Administration [...] Valent 0 Pneumococcal conjugate PCV20 , polysaccharide [id number] conjugate, adjuvant, PF 01/11/2024 RSV, Bivalent, Protein [...] Comments Blood Pressure 118/68 03/01/2024 10:21 AM LOADING SHOVEL OILER Pulse 62 03/01/2024 10:21 AM LOADING SHOVEL OILER Temperature 36.3 C (97.3 F) 03/01/2024 10:21 AM LOADING SHOVEL OILER Respiratory Rate 16 03/01/2024 10:2 1 AM LOADING SHOVEL OILER Oxygen Saturation 96% 03/01/2024 10: 21 AM LOADING SHOVEL OILER Inhaled Oxygen Concentration - - Weight 89.3 kg (196 lb 12.8 oz) 025 10:21 AM LOADING SHOVEL OILER Height 167.6 cm (5' 6 ) 03/01/2024 10:2 1 AM LOADING SHOVEL OILER Body Mass Index 31.76 03/01/2024 10:21 AM LOADING SHOVEL OILER Plan of Treatment Upcoming Encounters Date Type Department Care Team (Late st Contact Info) Description 05/28/2024 9:30 AM CDT [facility] #2 [place] [address] [facility]ie [facility] MD [facility] [address] [address] 08/30/2024 10:00 AM CDT Office Visit [facility] - Neurology - [place] #[address] [place] [address] Vickie Stallworth, ZOO KEEPER, MAC DEVELOPER [address] [place] [address] Health Maintenance Due Date Last Done Comments Diabetes: Foot Exam 1940 TdaP Immunization 1940 Diabetes: Eye Exam 01/14/2023 01/14/2022 DEXA Bone Density 04/10/2023 04/09/2021, 07/26/2012 SARS-COV-2 Immunization ( season) 2024 01/11/2024, 12/17/2021, 08/12/2021, Additional history exists Diabetes: Hemoglobin A1c 08/19/2024 025, 11/15/2023, 02/08/2023, Additional history exists Diabetes: Nephropathy Screening 09/09/2024 09/10/2023, 08/23/2023, 08/23/2023, Additional history exists Influenza Immunization (Season Ended) 2024 12/27/2022, 11/04/2021, 11/14/2020, Additional history exists Zoster Immunization Completed 06/23/2018, [...] POCT GLYCOSYLATED HEMOGLOBIN Routine 02/20/2024 9:13 AM LOADING SHOVEL OILER Type 2 diabetes mellitus with diabetic polyneuropathy, with long-term current use of insulin (HCC) CMP (COMPREHENSIVE METABOLIC PANEL) 09/10/2023 12:00 AM CDT HEPATITIS C ANTIBODY Routine 02/08/2023 10:45 AM LOADING SHOVEL OILER Encounter for hepatitis C screening test for low risk patient HM DILATED EYE EXAM 01/14/2022 1 2:00 AM LOADING SHOVEL OILER ERIN BONE DENSITOMETRY AXIAL SKELETON Routine 04/09/2021 1:42 PM LOADING SHOVEL OILER Menopausal and postmenopausal disorder Encounter for screening for osteoporosis from Last 3 Months or Most Recently Relevant to Health Maintenance Results * (ABNORMAL) POCT GLYCOSYLATED HEMOGLOBIN (02/20/2024 9:13 AM LOADING SHOVEL OILER) HGB-A1C 8.7(A) 4 - 6 % Blood 02/20/2024 9:13 AM LOADING SHOVEL OILER Stacie Lemon MD POINT OF CARE TESTING (MANUAL) F inal Result * CMP (COMPREHENSIVE METABOLIC PANEL) (09/10/2023 12:00 AM CDT) 09/10/2023 us Provider Scan CHEMISTRY ORDERABLES Final Resul t SCAN * HEPATITIS C ANTIBODY (02/08/2023 10:45 AM LOADING SHOVEL OILER) hepatitis C antibody 0.09 <1 S/CO [facility] ARCH [id number] B 02/08/2023 9:45 PM LOADING SHOVEL OILER [facility] Comment: Signal/Cutoff ratio < 0.79 is Nondetected Signal/Cutoff ratio 0.80-0.99 is Grayzone Signal/Cutoff ratio > 0.99 is Detected Supplemental assays are recommended if signal/cutoff ratio is >/=1.00. Signal/cutoff ratio result >/= 5.00 is 97% predictive of positivity for recombinant immunoblot assay (RIBA) and will be reported to the [place] Department of Public Health as required. Blood Venipuncture / Unknown 02/08/2023 10:45 AM LOADING SHOVEL OILER 02/08/2023 10:45 AM LOADING SHOVEL OILER us Salomón Meehan MD CHEMISTRY ORDERABLES Arianne l Result [facility] [address] [place] [address], [place] * DILATED EYE EXAM (01/14/2022 12:00 AM LOADING SHOVEL OILER) 01/14/2022 us Not On File Provider PROCEDURE/MINOR SURGICAL OR DERABLES Final Result Performing Organization Address City/[facility]/ZIP Co de Phone Number SCAN * ERIN BONE DENSITOMETRY AXIAL SKELETON (04/09/2021 1:42 PM LOADING SHOVEL OILER) Anatomical Region Laterality Modality BODY N/A Other 04/09/2021 8:13 PM LOADING SHOVEL OILER Impressions 04/09/2021 8:15 PM LOADING SHOVEL OILER IMPRESSION: Normal bone mineral density by WHO [...] of Osteoporosis (http://www.nof.org/professionals/clinical-guidelines) Narrative 04/09/2021 8:15 PM LOADING SHOVEL OILER EXAM DESCRIPTION: [facility] BONE DENSITOMETRY AXIAL SKELETON REASON FOR STUDY: Post-menopausal female, screening for osteoporosis. Computing Consultant/Model: [employer] (S/N [id number]) CLINICAL INFORMATION: Current height: 65 inches Maximum [...] Electronically signed by Nik Arrington M.D. AB: Report ID: [id number] Reading Location: [place] [address] Procedure Note Nik Arrington MD - 04/09/2021 EXAM DESCRIPTION: [facility] BONE DENSITOMETRY AXIAL SKELETON REASON FOR STUDY: Post-menopausal female, screening for osteoporosis. Computing Consultant/Model: [employer] (S/N [id number]) CLINICAL INFORMATION: Current height: 65 inches Maximum [...] Electronically signed by Nik Arrington M.D. AB: Report ID: [id number] Reading Location: [id number] IMPRESSION: Normal bone mineral density by WHO [...] and Treatment of Osteoporosis (http://www.nof.org/professionals/clinical-guidelines) Ramirez Esquivel [facility] IMG DEXA ORDERABLES Arianne l Result from Last 3 Months or Most Recently Relevant to Health Maintenance Insurance MEDICARE C [facility] Advance Directives Documents on File Type Date Recorded Patient Mineral Economist Expl anation POLST/POST/MT DNR 04/29/2023 11:04 AM POLS T, 04/21/2023 [...] measures to stabilize the patient. Care Teams Advertising Dispatch Clerk Relationship Specialty Start Date End Date Silvino Malagon MD [address] [place] [address] PCP - General Pediatrics 11/29/23 Sheng Castillo MD [address] [place] [address] Ophthalmology 06/28/19 Kg Syed DPM [address] [place] [address] Consulting Physician Podiatry 01/14/21 Jose De La Fuente MD [address] [place] [address] Consulting Physician Cardiovascular Disease - Cardiology 02/23/22 Pawel Wolfe MD [address] [place] [address] Consulting Physician Neurology 11/04/22 Stacie Lemon MD [address] [address] Consulting Physician Endocrinology 06/16/23
--- OUTSIDE RECORDS SUMMARY | 2024-05-25 13:39 | XMS_ITS | Encounter Summary ---
Author Organization [facility] Address [address] [place] [address] Phone Care Team Providers Care Lidar Technician Name Role Phone Salomón Meehan MD Primary Care Provider [phone] Sheng Castillo MD Unavailable [phone] Kg Syed DPM Unavailable Jose De La Fuente MD Unavailable Pawel Wheeler MD Unavailable [phone] Stacie Lemon MD Unavailable Silvino Malagon MD Primary Care Provider [phone] Reason for Visit * Reason Comments Medication Refill Encounter Details Date Type Department Care Team (Late st Contact Info) Description 10/06/2020 Refill [facility] [address] [place] [address] Salomón Meehan MD [address] [place] [address] Medication Refill Social History Tobacco [...] Description 05/28/2024 9:30 AM CDT Office Visit [facility] - Endocrinology - [place] #2 [place] [address] Stacie Lemon MD #[address] [place] [address] 08/30/2024 10:00 AM CDT Office Visit [facility] - Neurology - [place] [address] [place] [address] Vickie Stallworth, TELLER MANAGER, IN TUBE CONVERSION TECHNICIAN [address] [place] [address] documented as of this encounter Visit Diagnoses Not on filedocumented in this encounter Additional Health Concerns Infection Onset Date Last Indicated Resolved Time COVID - 19 12/27/2021 12/27/2021 12/28/2021 8:17 AM SOFTWARE TESTING SPECIALIST Respiratory Rule-Out 12/27/2021 12/27/2021 022 12:56 AM SOFTWARE TESTING SPECIALIST Respiratory Rule Out - RPA 12/28/2021 12/28/2021 1 02/27/2021 10:34 PM SOFTWARE TESTING SPECIALIST RSV 12/28/2021 12/28/2021 01/25/2022 12:1 6 AM SOFTWARE TESTING SPECIALIST Respiratory Rule-Out 07/15/2023 07/15/2023 024 1:25 PM CDT Respiratory Rule-Out 08/23/2023 08/23/2023 024 6:42 AM CDT Assessment Noted Time PHQ-9 Depression Total Score: 0 11/17/19 10:00 AM CDT documented as of this encounter Care Teams Lidar Technician Relationship Specialty Start Date End Date Salomón Meehan MD [address] [place] [address] PCP - General Internal Medicine 10/20/14 11/14/23 Silvino Malagon MD [address] [place] [address] PCP - General Pediatrics 11/29/23 Sheng Castillo MD [address] [place] [address] Ophthalmology 06/28/19 Kg Syed DPM [address] [place] [address] Consulting Physician Podiatry 01/14/21 Jose De La Fuente MD [address] [place] [address] Consulting Physician Cardiovascular Disease - Cardiology 02/23/22 Pawel Wolfe MD [address] [place] [address] Consulting Physician Neurology 11/04/22 Stacie Lemon MD #[address] [address] Consulting Physician Endocrinology 06/16/23 documented as of this encounter
--- OUTSIDE RECORDS SUMMARY | 2024-05-25 13:39 | XMS_ITS | Encounter Summary ---
Author Organization [facility] Address [address] [place] [address] Phone Care Team Providers Care Nitrate Operator Name Role Phone Salomón Meehan MD Primary Care Provider [phone] Sheng Castillo MD Unavailable [phone] Kg Syed DPM Unavailable [phone] Jose De La Fuente MD Unavailable Pawel Wheeler MD Unavailable [phone] Stacie Lemon MD Unavailable Silvino Malagon MD Primary Care Provider [phone] Reason for Visit * Reason Comments Medication Refill Encounter Details Date Type Department Care Team (Late st Contact Info) Description 10/22/2023 Refill [facility] - Primary Care - [place] [address] [place] [address] Salomón Meehan MD [address] [place] [address] Medication Refill Social History Tobacco [...] discontinued on 04/21/2023 by Hazel Acuña APRN, QUALITY IMPROVEMENT ENGINEER documented in this encounter Plan of Treatment Upcoming Encounters Date Type Department Care Team (Late st Contact Info) Description 05/28/2024 9:30 AM CDT Office Visit [facility] - Endocrinology - [place] #[address] [place] [address] Stacie Lemon MD #[address] [address] 08/30/2024 10:00 AM CDT [facility] - [facility]rology - [place] #[address] [place] [address] Vickie Stallworth APRN, DIRECTOR OF HOME ECONOMICS #[address] [place] [address] documented as of this encounter Visit Diagnoses Diagnosis Elevated brain natriuretic peptide (BNP) level Other nonspecific findings on examination of blood documented in this encounter Additional Health Concerns Assessment Noted Time PHQ-9 Depression Total Score: 0 02/08/19 24 10:13 AM PIG FARM MANAGER documented as of this encounter Care Teams Nitrate Operator Relationship Specialty Start Date End Date Salomón Meehan MD [address] [place] [address] PCP - General Internal Medicine 10/20/14 11/14/23 Silvino Malagon MD [address] [place] [address] PCP - General Pediatrics 11/29/23 Sheng Castillo MD [address] [place] [address] Ophthalmology 06/28/19 Kg Syed DPM [address] [place] [address] Consulting Physician Podiatry 01/14/21 Jose De La Fuente MD [address] [place] [address] Consulting Physician Cardiovascular Disease - Cardiology 02/23/22 Pawel Wolfe MD [address] [place] [address] Consulting Physician Neurology 11/04/22 Stacie Lemon MD #[address] [address] Consulting Physician Endocrinology 06/16/23 documented as of this encounter
--- OUTSIDE RECORDS SUMMARY | 2024-05-25 13:39 | XMS_ITS | Clinical Summary ---
Author Organization [facility] [address] [place] [facility] [place] Address [address] [place] [address] Care Team Providers Care Community Development Planner Name Role Phone Silvino Malagon MD Primary [...] 1 tablet (81 mg total) by mouth maintenance craftsman before breakfast Active cholecalciferol (VITAMIN D-3) 1,000 [...] on file Legal Sex Female 9:24 AM TOP WADDY Gender Identity Not on file Sexual Orientation [...] Comments Blood Pressure 104/58 12/20/2023 9:27 AM TOP WADDY Pulse 65 12/20/2023 9:27 AM TOP WADDY Temperature - - Respiratory Rate - - Oxygen Saturation 96% 12/20/2023 9:27 AM TOP WADDY Inhaled Oxygen Concentration - - Weight 83.9 kg (185 lb) 12/20/2023 9:27 AM TOP WADDY Height 162.6 cm (5' 4 ) 12/20/2023 9:27 AM TOP WADDY Body Mass Index 31.76 12/20/2023 9:27 AM TOP WADDY Plan of Treatment Health Maintenance Due Date [...] Most Recently Relevant to Health Maintenance Insurance [facility] Care Teams Community Development Planner Relationship Specialty Start Date End Date Silvino Malagon MD [address] [place] [address] PCP - General Family Medicine 12/20/23
--- OUTSIDE RECORDS SUMMARY | 2024-05-25 13:39 | XMS_ITS | Clinical Summary ---
Author Organization [facility] Address [address] [address] Care Team Providers Care Relief Operator Name Role Phone Salomón Meehan MD Primary Care Provider [phone] Medications aspirin (ST OLYA) 81 MG EC [...] 1 (one) time each day Active multivitamin-ir md-vnsyqhrr-yuw ic acid (THERAPEUTIC-M) tablet Take 1 tablet [...] A1C 05/10/2023 024, 02/08/2023, 07/27/2022 Influenza Vaccine (Season Ended) 2024 12/27/2022, 11/04/2021, 11/14/2020, Additional history exists Pneumococcal Vaccine: 50+ Years Completed 07/17/2015, 12/04/2009 Hepatitis B Vaccine [...] Recently Relevant to Health Maintenance Care Teams Relief Operator Relationship Specialty Start Date End Date Salomón Meehan MD [address] [place] [address] PCP - General Internal Medicine 04/05/23
--- OUTSIDE RECORDS SUMMARY | 2024-05-25 13:39 | XMS_ITS | Encounter Summary ---
Author Organization [facility] Address [address] [place] [address] Phone Care Team Providers Care Maritime Officer Name Role Phone Salomón Meehan MD Primary Care Provider [phone] Sheng Castillo MD Unavailable [phone] Kg Syed DPM Unavailable Jose De La Fuente MD Unavailable Pawel Wheeler MD Unavailable [phone] Stacie Lemon MD Unavailable Silvino Malagon MD Primary Care Provider [phone] Reason for Visit * Reason Comments Medication Refill Encounter Details Date Type Department Care Team (Late st Contact Info) Description 06/02/2020 Refill [facility] [address] [place] [address] Salomón Meehan MD [address] [place] [address] Medication Refill Social History Tobacco [...] [facility] - Endocrinology - [place] [address] [place] [address] Stacie Lemon MD #[address] [address] 08/30/2024 10:00 AM CDT Office Visit [facility] - Neurology - [place] [address] [place] [address] Vickie Stallworth APRN, OPEN SHANK COVERER [address] [place] [address] documented as of this encounter Visit Diagnoses Not on filedocumented in this encounter Additional Health Concerns Infection Onset Date Last Indicated Resolved Time COVID - 19 12/27/2021 12/27/2021 12/28/2021 8:17 AM LOG HAUL OPERATOR Respiratory Rule-Out 12/27/2021 12/27/2021 022 12:56 AM LOG HAUL OPERATOR Respiratory Rule Out - RPA 12/28/2021 12/28/2021 1 02/27/2021 10:34 PM LOG HAUL OPERATOR RSV 12/28/2021 12/28/2021 01/25/2022 12:1 6 AM LOG HAUL OPERATOR Respiratory Rule-Out 07/15/2023 07/15/2023 024 1:25 PM CDT Respiratory Rule-Out 08/23/2023 08/23/2023 024 6:42 AM CDT Assessment Noted Time PHQ-9 Depression Total Score: 0 11/17/19 19 10:00 AM CDT documented as of this encounter Care Teams Maritime Officer Relationship Specialty Start Date End Date Salomón Meehan MD [address] [place] [address] PCP - General Internal Medicine 10/20/14 11/14/23 Silvino Malagon MD [address] [place] [address] PCP - General Pediatrics 11/29/23 Sheng Castillo MD [address] [place] [address] Ophthalmology 06/28/19 Kg Syed DPM [address] [place] [address] Consulting Physician Podiatry 01/14/21 Jose De La Fuente MD [address] [place] [address] Consulting Physician Cardiovascular Disease - Cardiology 02/23/22 Pawel Wolfe MD [address] [place] [address] Consulting Physician Neurology 11/04/22 Stacie Lemon MD #[address] [phone] Consulting Physician Endocrinology 06/16/23 documented as of this encounter
--- OUTSIDE RECORDS SUMMARY | 2024-05-25 13:39 | XMS_ITS | Encounter Summary ---
Author Organization [facility] Address [address] [place] [address] Phone Care Team Providers Care Low Altitude Air Defense Officer Name Role Phone Salomón Meehan MD Primary Care Provider [phone] Sheng Castillo MD Unavailable [phone] Kg Syed DPM Unavailable Jose De La Fuente MD Unavailable Pawel Wheeler MD Unavailable [phone] Stacie Lemon MD Unavailable Silvino Malagon MD Primary Care Provider [phone] Reason for Visit * Reason Comments Medication Refill Encounter Details Date Type Department Care Team (Late st Contact Info) Description 08/05/2021 Refill [facility] - Primary Care - [place] [address] [place] [address] Salomón Meehan MD [address] [place] [address] Medication Refill Social History Tobacco [...] Description 05/28/2024 9:30 AM CDT Office Visit [facility] - Endocrinology - [place] [address]2 [place] [address] Stacie Lemon MD #[address] [address] 08/30/2024 10:00 AM CDT [facility] - [place] [address]2 [place] [address] Vickie Stallworth APRN, BUS TROLLEY AND TAXI INSTRUCTOR #2 [place] [address] documented as of this encounter Visit Diagnoses Not on filedocumented in this encounter Additional Health Concerns Infection Onset Date Last Indicated Resolved Time COVID - 19 12/27/2021 12/27/2021 12/28/2021 8:17 AM BARK PRESS OPERATOR Respiratory Rule-Out 12/27/2021 12/27/2021 022 12:56 AM BARK PRESS OPERATOR Respiratory Rule Out - RPA 12/28/2021 12/28/2021 1 02/27/2021 10:34 PM BARK PRESS OPERATOR RSV 12/28/2021 12/28/2021 01/25/2022 12:1 6 AM BARK PRESS OPERATOR Respiratory Rule-Out 07/15/2023 07/15/2023 024 1:25 PM CDT Respiratory Rule-Out 08/23/2023 08/23/2023 024 6:42 AM CDT Assessment Noted Time PHQ-9 Depression Total Score: 0 11/17/19 10:00 AM CDT documented as of this encounter Care Teams Low Altitude Air Defense Officer Relationship Specialty Start Date End Date Salomón Meehan MD [address] [place] [address] PCP - General Internal Medicine 10/20/14 11/14/23 Silvino Malagon MD [address] [place] [address] PCP - General Pediatrics 11/29/23 Sheng Castillo MD [address] [place] [address] Ophthalmology 06/28/19 Kg Syed DPM [address] [place] [address] Consulting Physician Podiatry 01/14/21 Jose De La Fuente MD [address] [place] [address] Consulting Physician Cardiovascular Disease - Cardiology 02/23/22 Pawel Wolfe MD #1 [place] [address] Consulting Physician Neurology 11/04/22 Stacie Lemon MD #[address] [address] Consulting Physician Endocrinology 06/16/23 documented as of this encounter
--- OUTSIDE RECORDS SUMMARY | 2024-05-25 13:39 | XMS_ITS | Encounter Summary ---
Author Organization [facility] Address [address] [place] [address] Phone Care Team Providers Care Supervisor Facepiece Line Name Role Phone Salomón Meehan MD Primary Care Provider Sheng Castillo MD Unavailable [phone] Kg Syed DPAgusto Unavailable Jose De La Fuente MD Unavailable Pawel Wheeler MD Unavailable [phone] Stacie Lemon MD Unavailable Silvino Malagon MD Primary Care Provider [phone] Reason for Visit * Reason Comments Medication Refill Encounter Details Date Type Department Care Team (Late st Contact Info) Description 07/30/2023 Refill [facility] - Neurology [facility] #[address] [place] [address] Pawel Wolfe MD #2 [place] [address] Medication Refill Social History Tobacco [...] Dept 05/26/23 Office Visit Pawel Wolfe MD [facility] Neurology [place] 04/21/23 Office Visit Hazel Acuña APRN, ENGLISH DRAWER [facility] 02/08/23 Office Visit Salomón Meehan MD [facility] 11/04/22 Office Visit Pawel Wolfe MD [facility] Neurology [place] Showing recent visits within past 365 days and meeting all other requirements Future Appointments Date Type Provider Dept 08/15/23 Appointment Salomón Meehan MD [facility] 08/25/23 Appointment Pawel Wolfe MD [facility] Neurology [facility] [place] Showing future appointments within next 90 days and meeting all other requirements documented in this encounter Plan of Treatment Upcoming Encounters Date Type Department Care Team (Late st Contact Info) Description 05/28/2024 9:30 AM CDT [facility]ology - [place] [address] [place] [address] Stacie Lemon MD #[address] [address] 08/30/2024 10:00 AM CDT [facility] - [place] [address] [place] [address] Vickie Stallworth, JOB FOREMAN, CONTENT ENGINEER #2 [place] [address] documented as of this encounter Visit Diagnoses Not on filedocumented in this encounter Additional Health Concerns Infection Onset Date Last Indicated Resolved Time Respiratory Rule-Out 08/23/2023 08/23/2023 024 6:42 AM CDT Assessment Noted Time PHQ-9 Depression Total Score: 0 02/08/19 10:13 AM STRATEGIC INSIGHTS LEAD documented as of this encounter Care Teams Supervisor Facepiece Line Relationship Specialty Start Date End Date Salomón Meehan MD [address] [place] [address] PCP - General Internal Medicine 10/20/14 11/14/23 Silvino Malagon MD [address] [place] [address] PCP - General Pediatrics 11/29/23 Sheng Castillo MD [address] [place] [address] Ophthalmology 06/28/19 Kg Syed DPM [address] [place] [address] Consulting Physician Podiatry 01/14/21 Jose De La Fuente MD [address] [place] [address] Consulting Physician Cardiovascular Disease - Cardiology 02/23/22 Pawel Wolfe MD #1 [place] [address] Consulting Physician Neurology 11/04/22 Stacie Lemon MD #[address] [address] Consulting Physician Endocrinology 06/16/23 documented as of this encounter
--- OUTSIDE RECORDS SUMMARY | 2024-05-25 13:39 | XMS_ITS | Encounter Summary ---
Author Organization [facility] Address [address] [place] [address] Phone Care Team Providers Care Stock Clerk Name Role Phone Salomón Meehan MD Primary Care Provider [phone] Sheng Castillo MD Unavailable [phone] Kg Syed DPM Unavailable Jose De La Fuente MD Unavailable Pawel Wheeler MD Unavailable [phone] Stacie Lemon MD Unavailable Silvino Malagon MD Primary Care Provider [phone] Reason for Visit * Reason Comments Medication Refill Encounter Details Date Type Department Care Team (Late st Contact Info) Description 07/15/2023 Refill [facility] - Primary Care - [place] [address] [place] [address] Salomón Meehan MD [address] [place] [address] Medication Refill Social History Tobacco [...] Description 05/28/2024 9:30 AM CDT Office Visit [facility] - Endocrinology - [place] #2 [place] [address] Stcaie Lemon MD #[address] [address] 08/30/2024 10:00 AM CDT Office Visit [facility] - Neurology - [place] [address] [place] [address] Vickie Stallworth APRN, FLIGHT ENGINEER #[address] [place] [address] documented as of this encounter Visit Diagnoses Not on filedocumented in this encounter Additional Health Concerns Infection Onset Date Last Indicated Resolved Time Respiratory Rule-Out 07/15/2023 07/15/2023 024 1:25 PM CDT Respiratory Rule-Out 08/23/2023 08/23/2023 024 6:42 AM CDT Assessment Noted Time PHQ-9 Depression Total Score: 0 02/08/19 10:13 AM BONE PULLER documented as of this encounter Care Teams Stock Clerk Relationship Specialty Start Date End Date Salomón Meehan MD [address] [place] [address] PCP - General Internal Medicine 10/20/14 11/14/23 Silvino Malagon MD [address] [place] [address] PCP - General Pediatrics 11/29/23 Sheng Castillo MD [address] [place] [address] Ophthalmology 06/28/19 Kg Syed DPM [address] [place] [address] Consulting Physician Podiatry 01/14/21 Jose De La Fuente MD [address] [place] [address] Consulting Physician Cardiovascular Disease - Cardiology 02/23/22 Pawel Wolfe MD #[address] [place] [address] Consulting Physician Neurology 11/04/22 Stacie Lemon MD #[address] [address] Consulting Physician Endocrinology 06/16/23 documented as of this encounter
--- OUTSIDE RECORDS SUMMARY | 2024-05-25 13:39 | XMS_ITS | Referral Summary ---
Author Organization [facility] [place] [facility] [place] Address [address] [place] [address] Care Team Providers Care Tarp Repairer Name Role Phone Silvino Malagon MD Primary [...] 1 tablet (81 mg total) by mouth district gauger before breakfast Active cholecalciferol (VITAMIN D-3) 1,000 [...] on file Legal Sex Female 9:24 AM SOCIAL WORK THERAPIST Gender Identity Not on file Sexual Orientation Not on file Occupation Industry Job Start Date Job End Date retired Not on file Not on file Not on file Last Filed Vital Signs Vital Sign Reading Time Taken Comments Blood Pressure 104/58 12/20/2023 9:27 AM SOCIAL WORK THERAPIST Pulse 65 12/20/2023 9:27 AM SOCIAL WORK THERAPIST Temperature - - Respiratory Rate - - Oxygen Saturation 96% 12/20/2023 9:27 AM SOCIAL WORK THERAPIST Inhaled Oxygen Concentration - - Weight 83.9 kg (185 lb) 12/20/2023 9:27 AM SOCIAL WORK THERAPIST Height 162.6 cm (5' 4 ) 12/20/2023 9:27 AM SOCIAL WORK THERAPIST Body Mass Index 31.76 12/20/2023 9:27 AM SOCIAL WORK THERAPIST Plan of Treatment Not on file Procedures [...] Most Recently Relevant to Health Maintenance Insurance [facility] MEDICARE ADVANTAGE Care Teams Tarp Repairer Relationship Specialty Start Date End Date Silvino Malagon MD [address] [place] [address] PCP - General Family Medicine 12/20/23
--- OUTSIDE RECORDS SUMMARY | 2024-05-25 13:39 | XMS_ITS | Encounter Summary ---
Author Organization [facility] Address [address] [place] [address] Phone Care Team Providers Care General Engineering Teacher Name Role Phone Salomón Meehan MD Primary Care Provider [phone] Sheng Castillo MD Unavailable [phone] Kg Syed DPM Unavailable [phone] Jose De La Fuente MD Unavailable Pawel Wheeler MD Unavailable [phone] Stacie Lemon MD Unavailable Silvino Malagon MD Primary Care Provider [phone] Reason for Visit * Reason Comments Medication Refill Encounter Details Date Type Department Care Team (Late st Contact Info) Description 05/19/2023 Refill [facility] - Primary Care - [address] [place] [address] Salomón Meehan MD [address] [place] [address] Medication Refill Social History Tobacco [...] AM CDT Medication[facility]) [facility] Refill Standing Order for Pediatricand Adult Patients. Requested Prescriptions Pending Prescriptions Disp Refills Insulin Pen Needle (B-D ULTRAFINE III SHORT PEN) 31G X 8 MM Misc [Pharmacy Med Name: BD UF SHORT PEN NEEDLE [id number]] 100 Pen Needle 1 Sig: USE TO INJECT INSULIN FOUR TIMES DAILY Diabetic Supplies Protocol Passed - 05/19/2023 11:46 AM Passed - Visit with relevant provider in past 6 months Recent Visits Date Type Provider Dept 04/21/23 Office Visit Hazel Acuña APRN, DIRECTOR WORKERS COMPENSATION [facility] 02/08/23 Office Visit Salomón Meehan MD [facility] Showing recent visits within past 182 days and meeting all other requirements Future Appointments Date Type Provider Dept 08/15/23 Appointment Salomón Meehan MD [facility] Showing future appointments within next 90 days and meeting all other requirements documented in this encounter Plan of Treatment Upcoming Encounters Date Type Department Care Team (Late st Contact Info) Description 05/28/2024 9:30 AM CDT [facility] - Endocrinology - [place] [address] [place] [address] Stacie Lemon MD [address] [place] [address] [address] 08/30/2024 10:00 AM CDT Office Visit [facility] - Neurology - [place] [address] [place] [address] Vickie Stallworth APRN, TRUCK DRIVING INSTRUCTOR #[address] [facility] [place] [address] documented as of this encounter Visit Diagnoses Diagnosis Type 2 diabetes mellitus with diabetic neuropathy, unspecified (HCC) documented in this encounter Additional Health Concerns Infection Onset Date Last Indicated Resolved Time Respiratory Rule-Out 07/15/2023 07/15/2023 024 1:25 PM CDT Respiratory Rule-Out 08/23/2023 08/23/2023 024 6:42 AM CDT Assessment Noted Time PHQ-9 Depression Total Score: 0 02/08/19 10:13 AM FRONT END DEVELOPER JAVASCRIPT HTML CSS documented as of this encounter Care Teams General Engineering Teacher Relationship Specialty Start Date End Date Salomón Meehan MD [address] [place] [address] PCP - General Internal Medicine 10/20/14 11/14/23 Silvino Malagon MD [address] [place] [address] PCP - General Pediatrics 11/29/23 Sheng Castillo MD [address] [place] [address] Ophthalmology 06/28/19 Kg Syed DPM [address] [place] [address] Consulting Physician Podiatry 01/14/21 Jose De La Fuente MD [address] [place] [address] Consulting Physician Cardiovascular Disease - Cardiology 02/23/22 Pawel Wolfe MD [address] [place] [address] Consulting Physician Neurology 11/04/22 Stacie Lemon MD [address] [address] Consulting Physician Endocrinology 06/16/23 documented as of this encounter
[2024-05-25 14:27] LABS: Anion Gap 5 mmol/L (4-12); Blood Urea Nitrogen 42 mg/dL (7-18); Calcium 9.2 mg/dL (8.5-10.1); Carbon Dioxide 30 mmol/L (21-32); Chloride 102 mmol/L (98-108); Estimated Glomerular Filt Rate 22; Glucose 336 mg/dL (70-99); Osmolality Calculated 307 mOsm/kg (285-295); Potassium 5.3 mmol/L (3.5-5.1); Sodium 137 mmol/L (136-145)
[2024-05-29 10:34] LABS: Levetiracetam Keppra 71.6 mcg/mL (6.0-46.0)
== END 2024-05-25 13:36 | disposition home or self-care (01) ==
PROVIDERS: PCP Family Medicine; Visit Provider Family Medicine
DX: R56.9 Unspecified convulsions (principal); I10 Essential (primary) hypertension
CPT/HCPCS: 36415; 80048; 80177

== ENCOUNTER 2024-06-22 13:22 | Outpatient (CLI) | payer MEDICARE, SELFPAY ==
--- OUTSIDE RECORDS SUMMARY | 2024-06-22 13:34 | XMS_ITS | Encounter Summary ---
Author Organization [facility] Address [address] [place] [address] Phone Care Team Providers Care Children'S Literature Professor Name Role Phone Salomón Meehan MD Primary Care Provider [phone] Sheng Castillo MD Unavailable [phone] Kg Syed DPM Unavailable Jose De La Fuente MD Unavailable [facility] Pawel Plascencia MD Unavailable Stacie Lemon MD Unavailable Silvino Mlaagon MD Primary Care Provider [phone] Reason for Visit * Reason Comments Medication Refill Encounter Details Date Type Department Care Team (Late st Contact Info) Description 07/30/2023 Refill [facility] - Neurology [facility] #2 [place] [address] Pawel Wolfe MD #2 [place] [address] Medication Refill Social History Tobacco [...] Dept 05/26/23 Office Visit Pawel Wolfe MD [facility] Neurology [facility] [place] 04/21/23 Office Visit Hazel Acuña APRN, SYSTEMS INTEGRATION ANALYST [facility] 02/08/23 Office Visit Salomón Meehan MD [facility] 11/04/22 Office Visit [facility]awel Wolfe MD [facility] Showing recent visits within past 365 days and meeting all other requirements Future Appointments Date Type Provider Dept 08/15/23 Appointment Salomón Meehan MD [facility] 08/25/23 Appointment Pawel Wolfe MD [facility] Neurology [facility] Showing future appointments within next 90 days and meeting all other requirements documented in this encounter Plan of Treatment Upcoming Encounters Date Type Department Care Team (Late st Contact Info) Description 08/22/2024 9:30 AM CDT Office Visit [facility] - Endocrinology - [place] [address] [place] [address] Stacie Lemon MD #[address] [address] 08/30/2024 10:00 AM CDT [facility] - [place] [address] [place] [address] Vickie Stallworth APRN, OPERATOR HELPER #2 [place] [address] documented as of this encounter Visit Diagnoses Not on filedocumented in this encounter Additional Health Concerns Infection Onset Date Last Indicated Resolved Time Respiratory Rule-Out 08/23/2023 08/23/2023 024 6:42 AM CDT Assessment Noted Time PHQ-9 Depression Total Score: 0 02/08/19 10:13 AM WELL SERVICES OPERATOR documented as of this encounter Care Teams Children'S Literature Professor Relationship Specialty Start Date End Date Salomón Meehan MD [address] [place] [address] PCP - General Internal Medicine 10/20/14 11/14/23 Silvino Malagon MD [address] [place] [address] PCP - General Pediatrics 11/29/23 Sheng Castillo MD [address] [place] [address] Ophthalmology 06/28/19 Kg Syed DPM [address] [place] [address] Consulting Physician Podiatry 01/14/21 Jose De La Fuente MD [address] [place] [address] Consulting Physician Cardiovascular Disease - Cardiology 02/23/22 Pawel Wolfe MD #[address] [place] [address] Consulting Physician Neurology 11/04/22 Stacie Lemon MD #[address] [phone] Consulting Physician Endocrinology 06/16/23 documented as of this encounter
--- OUTSIDE RECORDS SUMMARY | 2024-06-22 13:34 | XMS_ITS | Encounter Summary ---
Author Organization [facility] Address [address] [place] [address] Phone Care Team Providers Care Automation Controls Expert Name Role Phone Salomón Meehan MD Primary Care Provider [phone] Sheng Castillo MD Unavailable [phone] Kg Syed DPM Unavailable Jose De La Fuente MD Unavailable Pawel Wheeler MD Unavailable Stacie Lemon MD Unavailable Silvino Malagon MD Primary Care Provider [phone] Reason for Visit * Reason Comments Medication Refill Encounter Details Date Type Department Care Team (Late st Contact Info) Description 05/19/2023 Refill [facility] - Primary Care - [place] [place] [address] Salomón Meehan MD [address] [place] [address] Medication Refill Social History Tobacco [...] AM CDT Medication(s) refilled and signed per [facility] Chronic Medication Refill Standing Order for Pediatricand Adult Patients. Requested Prescriptions Pending Prescriptions Disp Refills Insulin Pen Needle (B-D ULTRAFINE III SHORT PEN) 31G X 8 MM Misc [Pharmacy Med Name: BD UF SHORT PEN NEEDLE [id number]] 100 Pen Needle 1 Sig: USE TO INJECT INSULIN FOUR TIMES DAILY Diabetic Supplies Protocol Passed - 05/19/2023 11:46 AM Passed - Visit with relevant provider in past 6 months Recent Visits Date Type Provider Dept 04/21/23 Office Visit Hazel Acuña APRN, COLLAR BASTER [facility] 02/08/23 Office Visit Salomón Meehan MD [facility] Showing recent visits within past 182 days and meeting all other requirements Future Appointments Date Type Provider Dept 08/15/23 Appointment Salomón Meehan MD [facility] Showing future appointments within next 90 days and meeting all other requirements documented in this encounter Plan of Treatment Upcoming Encounters Date Type Department Care Team (Late st Contact Info) Description 08/22/2024 9:30 AM CDT [facility] - [place] [address] [place] [address] Stacie Lemon MD [address] [address] 08/30/2024 10:00 AM CDT Office Visit [facility] - Neurology - [place] [address] [place] [address] Vickie Stallworth, FEED RESEARCH TECHNICIAN, RIVET MAKER #[address] [facility] [place] [place] [address] documented as of this encounter Visit Diagnoses Diagnosis Type 2 diabetes mellitus with diabetic neuropathy, unspecified (HCC) documented in this encounter Additional Health Concerns Infection Onset Date Last Indicated Resolved Time Respiratory Rule-Out 07/15/2023 07/15/2023 024 1:25 PM CDT Respiratory Rule-Out 08/23/2023 08/23/2023 024 6:42 AM CDT Assessment Noted Time PHQ-9 Depression Total Score: 0 02/08/19 10:13 AM SPEED READING TEACHER documented as of this encounter Care Teams Automation Controls Expert Relationship Specialty Start Date End Date Salomón Meehan MD [address] [place] [address] PCP - General Internal Medicine 10/20/14 11/14/23 Silvino Malagon MD [address] [place] [address] PCP - General Pediatrics 11/29/23 Sheng Castillo MD [address] [place] [address] Ophthalmology 06/28/19 Kg Syed DPM [address] [place] [address] Consulting Physician Podiatry 01/14/21 Jose De La Fuente MD [address] [place] [address] Consulting Physician Cardiovascular Disease - Cardiology 02/23/22 Pawel Wolfe MD [address] [facility] [facility] [place] [address] Consulting Physician Neurology 11/04/22 Stacie Lemon MD [address] [address] Consulting Physician Endocrinology 06/16/23 documented as of this encounter
--- OUTSIDE RECORDS SUMMARY | 2024-06-22 13:34 | XMS_ITS | Encounter Summary ---
Author Organization [facility] Address [address] [place] [address] Phone Care Team Providers Care Post Acute Care Nurse Practitioner Name Role Phone Salomón Meehan MD Primary Care Provider Sheng Castillo MD Unavailable [phone] Kg Syed DPM Unavailable Jose De La Fuente MD Unavailable Pawel Wheeler MD Unavailable Stacie Lemon MD Unavailable Silvino Malagon MD Primary Care Provider [phone] Reason for Visit * Reason Comments Medication Refill Encounter Details Date Type Department Care Team (Late st Contact Info) Description 11/09/2020 Refill [facility] - Primary Care - [place] [address] [place] [address] Salomón Meehan MD [address] [place] [address] Medication Refill Social History Tobacco [...] Description 08/22/2024 9:30 AM CDT Office Visit [facility] - Endocrinology - [place] #2 [place] [address] Stacie Lemon MD #[address] [address] 08/30/2024 10:00 AM CDT Office Visit [facility] - Neurology - [place] #[address] [place] [address] Vickie Stallworth APRN, SOCCER COMMENTATOR #2 [place] [address] documented as of this encounter Visit Diagnoses Not on filedocumented in this encounter Additional Health Concerns Infection Onset Date Last Indicated Resolved Time COVID - 19 12/27/2021 12/27/2021 12/28/2021 8:17 AM HOT ROLL INSPECTOR Respiratory Rule-Out 12/27/2021 12/27/2021 022 12:56 AM HOT ROLL INSPECTOR Respiratory Rule Out - RPA 12/28/2021 12/28/2021 1 02/27/2021 10:34 PM HOT ROLL INSPECTOR RSV 12/28/2021 12/28/2021 01/25/2022 12:1 6 AM HOT ROLL INSPECTOR Respiratory Rule-Out 07/15/2023 07/15/2023 024 1:25 PM CDT Respiratory Rule-Out 08/23/2023 08/23/2023 024 6:42 AM CDT Assessment Noted Time PHQ-9 Depression Total Score: 0 11/17/19 10:00 AM CDT documented as of this encounter Care Teams Post Acute Care Nurse Practitioner Relationship Specialty Start Date End Date Salomón Meehan MD [address] [place] [address] PCP - General Internal Medicine 10/20/14 11/14/23 Silvino Malagon MD [address] [place] [address] PCP - General Pediatrics 11/29/23 Sheng Castillo MD [address] [place] [address] Ophthalmology 06/28/19 Kg Syed DPM [address] [place] [address] Consulting Physician Podiatry 01/14/21 Jose De La Fuente MD [address] [place] [address] Consulting Physician Cardiovascular Disease - Cardiology 02/23/22 Pawel Wolfe MD [address] [place] [address] Consulting Physician Neurology 11/04/22 Stacie Lemon MD [address] [address] Consulting Physician Endocrinology 06/16/23 documented as of this encounter
--- OUTSIDE RECORDS SUMMARY | 2024-06-22 13:34 | XMS_ITS | Encounter Summary ---
Author Organization [facility] Address [address] [place] [address] Phone Care Team Providers Care Patient Support Partner Name Role Phone Salomón Meehan MD Primary Care Provider [phone] Sheng Castillo MD Unavailable [phone] Kg Syed DPM Unavailable Jose De La Fuente MD Unavailable [facility] Pawel Plascencia MD Unavailable [phone] Stacie Lemon MD Unavailable Silvino Malagon MD Primary Care Provider [phone] Encounter Details Date Type Department Care Team (Late st Contact Info) Description 01/18/2022 [facility] [address] [place] [address] Salomón Meehan MD [address] [place] [address] Pneumonia, unspecified organism Social History [...] Coronavirus/COVID-19? No / Unsure 01/21/2022 8:44 AM SKINNING MACHINE FEEDER documented as of this encounter Plan of Treatment Upcoming Encounters Date Type Department Care Team (Late st Contact Info) Description 08/22/2024 9:30 AM CDT Office Visit [facility] - Endocrinology - [place] [address] [place] [address] Stacie Lemon MD #[address] [address] 08/30/2024 10:00 AM CDT [facility] - [facility]rology - [place] [address] [place] [address] Vickie Stallworth APRN, FIRE MANAGEMENT SPECIALIST [address] [place] [address] documented as of this encounter Procedures Procedure Name Priority Date/Time Associated Diagnosis Comments CBC WITH AUTO DIFFERENTIAL Routine 01/18/2022 10:09 AM SKINNING MACHINE FEEDER Pneumonia, unspecified organism COMPLETE BLOOD COUNT (CBC) WITH DIFF Routine 01/18/2022 10:09 AM SKINNING MACHINE FEEDER Pneumonia, unspecified organism BASIC METABOLIC PANEL W/ CALCIUM TOTAL Routine 01/18/2022 10:09 AM SKINNING MACHINE FEEDER Pneumonia, unspecified organism documented in this encounter Results * (ABNORMAL) CBC WITH AUTO DIFFERENTIAL (01/18/2022 10:09 AM SKINNING MACHINE FEEDER) [facility] WBC 7.38 4.00 - 12.00 10(3)/mcL 01/18/2022 11:15 AM [facility] RBC 4.40 3.80 - 5.30 10(6)/mcL 01/18/2022 11:15 AM [facility] HEMOGLOBIN (HGB) 12.4 12.0 - 15.8 g/dL 01/18/2022 11:15 AM [facility] HEMATOCRIT (HCT) 40.7 36.0 - 47.0 % 01/18/2022 11:15 AM [facility] MCV 92.5 82.0 - 96.0 fL 01/18/2022 11:15 AM [facility] MCH 28.2 26.0 - 34.0 pg 01/18/2022 11:15 AM [facility] MCHC 30.5(L) 31.0 - 36.0 g/dL 01/18/2022 11:15 AM [facility] PLATELET COUNT 256 140 - 440 10(3)/[facility] 01/18/2022 11:15 AM [facility] RDW 13.9 11.8 - 15.5 % 01/18/2022 11:15 AM [facility] MPV 9.9 9.7 - 12.4 fL 01/18/2022 11:15 AM [facility] NEUTROPHILS 66.1 47.0 - 73.0 % 01/18/2022 11:15 AM [facility] LYMPHOCYTES 24.1 18.0 - 42.0 % 01/18/2022 11:15 AM [facility] MONOCYTES 6.2 4.0 - 12.0 % 01/18/2022 11:15 AM [facility] EOSINOPHILS 2.8 0.0 - 5.0 % 01/18/2022 11:15 AM [facility] BASOPHILS 0.8 0.0 - 1.0 % 01/18/2022 11:15 AM [facility] ABSOLUTE NEUTROPHILS 4.87 1.60 - 7.70 10(3)/[facility] 01/18/2022 11:15 AM SKINNING MACHINE FEEDER [facility] ABSOLUTE LYMPHOCYTES 1.78 1.30 - 3.20 10(3)/[facility] 01/18/2022 11:15 AM SKINNING MACHINE FEEDER [facility] ABSOLUTE MONOCYTES 0.46 0.20 - 1.00 10(3)/[facility] 01/18/2022 11:15 AM SKINNING MACHINE FEEDER [facility] ABSOLUTE EOSINOPHIL 0.21 0.00 - 0.40 10(3)/[facility] 01/18/2022 11:15 AM [facility] ABSOLUTE BASOPHILS 0.06 0.00 - 0.10 10(3)/[facility] 01/18/2022 11:15 AM [facility] NRBC PER 100 WBC 0 01/19/20 11:15 AM [facility] Blood No Phlebotomy Charged / Unknown 01/18/2022 10:09 AM [facility] 01/18/2022 11:12 AM [facility] us Salomón Meehan MD HEMATOLOGY ORDERABLES Fin al Result [facility] [address] [place] [address] * (ABNORMAL) BASIC METABOLIC PANEL W/ CALCIUM TOTAL (01/18/2022 10:09 AM [facility]) SODIUM 136 136 - 144 mmol/L 01/18/2022 11:33 AM SKINNING MACHINE FEEDER [facility] POTASSIUM 5.5(H) 3.5 - 5.1 mmol/L 01/18/2022 11:33 AM [facility] CHLORIDE 99(L) 100 - 110 mmol/L 01/18/2022 11:33 AM [facility] CO2, VENOUS 27 22 - 32 mmol/L 01/18/2022 11:33 AM [facility] ANION GAP 15.5 8.0 - 20.0 mmol/L 01/18/2022 11:33 AM SKINNING MACHINE FEEDER [facility] GLUCOSE 234(H) 70 - 99 mg/dL 01/18/2022 11:33 AM SKINNING MACHINE FEEDER [facility] BUN 20 8 - 23 mg/dL 01/18/2022 11:33 AM [facility] CREATININE, BLOOD 1.53(H) 0.60 - 1.10 mg/dL 01/18/2022 11:33 AM SKINNING MACHINE FEEDER [facility] BUN/CREATININE RATIO 13 12 - 20 ratio 01/18/2022 11:33 AM SKINNING MACHINE FEEDER [facility] CALCIUM 10.3 8.9 - 10.3 mg/dL 01/18/2022 11:33 AM SKINNING MACHINE FEEDER [facility] GFR, ESTIMATED 34(L) >=60 01/18/2022 11:33 AM [facility] Comment: Creatinine Clearance is the preferred criteria for selecting drug dose adjustments in renally impaired patients. The GFR is provided as additional pertinent clinical information. GFR is reported in mL/min/1.73 sq m. Calculation based on the Chronic Kidney Disease Epidemiology Collaboration (CKD- EPI) equation refit without adjustment for race. GFR, EST. 39(L) >=60 022 11:33 AM [facility] GFR, EST. NONAFRICAN 32(L) >=60 01/18/2022 11:33 AM [facility] Blood No Phlebotomy Charged / Unknown 01/18/2022 10:09 AM SKINNING MACHINE FEEDER 01/18/2022 11:12 AM SKINNING MACHINE FEEDER us Salomón Meehan MD CHEMISTRY ORDERABLES Arianne l Result [facility] [address] [place] [address] documented in this encounter Visit Diagnoses Diagnosis Pneumonia, unspecified organism documented in this encounter Additional Health Concerns Infection Onset Date Last Indicated Resolved Time RSV 12/28/2021 12/28/2021 01/25/2022 12:1 6 AM SKINNING MACHINE FEEDER Respiratory Rule-Out 07/15/2023 07/15/20232 024 1:25 PM CDT Respiratory Rule-Out 08/23/2023 08/23/2023 024 6:42 AM CDT Assessment Noted Time PHQ-9 Depression Total Score: 0 11/17/19 19 10:00 AM CDT documented as of this encounter Care Teams Patient Support Partner Relationship Specialty Start Date End Date Salomón Meehan MD [address] [place] [address] PCP - General Internal Medicine 10/20/14 11/14/23 Silvino Malagon MD [address] [place] [address] PCP - General Pediatrics 11/29/23 Sheng Castillo MD [address] [place] [address] Ophthalmology 06/28/19 Kg Syed DPM [address] [place] [address] Consulting Physician Podiatry 01/14/21 Jose De La Fuente MD [address] [place] [address] Consulting Physician Cardiovascular Disease - Cardiology 02/23/22 Pawel Wolfe MD [address] [place] [address] Consulting Physician Neurology 11/04/22 Stacie Lemon MD #[address] [address] Consulting Physician Endocrinology 06/16/23 documented as of this encounter
--- OUTSIDE RECORDS SUMMARY | 2024-06-22 13:35 | XMS_ITS | Encounter Summary ---
Author Organization [facility] Address [address] [place] [address] Phone Care Team Providers Care Piercing Specialist Name Role Phone Salomón Meehan MD Primary Care Provider Sheng Castillo MD Unavailable [phone] Kg Syed DPM Unavailable [phone] Jose De La Fuente MD Unavailable Pawel Wheeler MD Unavailable Stacie Lemon MD Unavailable Silvino Malagon MD Primary Care Provider [phone] Reason for Visit * Reason Comments Medication Refill Encounter Details Date Type Department Care Team (Late st Contact Info) Description 08/05/2021 Refill [facility] - Primary Care - [place] [address] [place] [address] Salomón Meehan MD [address] [place] [address] Medication Refill Social History Tobacco [...] Visit [facility] - [place] [address] [place] [address] Stacie Lemon MD #[address] [address] 08/30/2024 10:00 AM CDT [facility] - [place] [address] [place] [address] Vickie Stallworth APRN, [employer] [address] [place] [address] documented as of this encounter Visit Diagnoses Not on filedocumented in this encounter Additional Health Concerns Infection Onset Date Last Indicated Resolved Time COVID - 19 12/27/2021 12/27/2021 12/28/2021 8:17 AM REMELTER Respiratory Rule-Out 12/27/2021 12/27/2021 022 12:56 AM REMELTER Respiratory Rule Out - RPA 12/28/2021 12/28/2021 1 02/27/2021 10:34 PM REMELTER RSV 12/28/2021 12/28/2021 01/25/2022 12:1 6 AM REMELTER Respiratory Rule-Out 07/15/2023 07/15/2023 024 1:25 PM CDT Respiratory Rule-Out 08/23/2023 08/23/2023 024 6:42 AM CDT Assessment Noted Time PHQ-9 Depression Total Score: 0 11/17/19 10:00 AM CDT documented as of this encounter Care Teams Piercing Specialist Relationship Specialty Start Date End Date Salomón Meehan MD [address] [place] [address] PCP - General Internal Medicine 10/20/14 11/14/23 Silvino Malagon MD [address] [place] [address] PCP - General Pediatrics 11/29/23 Sheng Castillo MD [address] [place] [address] Ophthalmology 06/28/19 Kg Syed DPM [address] [place] [address] Consulting Physician Podiatry 01/14/21 Jose De La Fuente MD [address] [place] [address] Consulting Physician Cardiovascular Disease - Cardiology 02/23/22 Pawel Wolfe MD [address] [place] [address] Consulting Physician Neurology 11/04/22 Stacie Lemon MD #[address] [address] Consulting Physician Endocrinology 06/16/23 documented as of this encounter
--- OUTSIDE RECORDS SUMMARY | 2024-06-22 13:35 | XMS_ITS | Encounter Summary ---
Author Organization [facility] Address [address] [place] [address] Phone Care Team Providers Care Printing Press Machinist Name Role Phone Salomón Meehan MD Primary Care Provider [phone] Sheng Castillo MD Unavailable [phone] Kg Syed DPM Unavailable [phone] Jose De La Fuente MD Unavailable Pawel Wheeler MD Unavailable Stacie Lemon MD Unavailable Silvino Malagon MD Primary Care Provider [phone] Reason for Visit * Reason Comments Medication Refill Encounter Details Date Type Department Care Team (Late st Contact Info) Description 11/14/2023 Refill [facility] - Primary Care - [place] [address] [place] [address] Saloómn Meehan MD [address] [place] [address] Medication Refill Social History Tobacco [...] Telephone Encounter - Ronald Hughes RN - 11/15/2023 8:11 AM CDT discontinued on 04/21/2023 by Hazel Acuña APRN, FIELD TEST ENGINEER documented in this encounter Plan of Treatment Upcoming Encounters Date Type Department Care Team (Late st Contact Info) Description 08/22/2024 9:30 AM CDT [facility] - [place] [address] [place] [address] Stacie Lemon MD #[address] [address] 08/30/2024 10:00 AM CDT [facility] - [place] [address] [place] [address] Vickie Stallworth APRN, [employer] [address] [place] [address] documented as of this encounter Visit Diagnoses Diagnosis Elevated brain natriuretic peptide (BNP) level Other nonspecific findings on examination of blood documented in this encounter Additional Health Concerns Assessment Noted Time PHQ-9 Depression Total Score: 0 02/08/19 24 10:13 AM LOCAL COORDINATOR documented as of this encounter Care Teams Printing Press Machinist Relationship Specialty Start Date End Date Salomón Meehan MD [address] [place] [address] PCP - General Internal Medicine 10/20/14 11/14/23 Silvino Malagon MD [address] [place] [address] PCP - General Pediatrics 11/29/23 Sheng Castillo MD [address] [place] [address] Ophthalmology 06/28/19 Kg Syed DPM [address] [place] [address] Consulting Physician Podiatry 01/14/21 Jose De La Fuente MD [address] [place] [address] Consulting Physician Cardiovascular Disease - Cardiology 02/23/22 Pawel Wolfe MD [address] [place] [address] Consulting Physician Neurology 11/04/22 Stacie Lemon MD #[address] [address] Consulting Physician Endocrinology 06/16/23 documented as of this encounter
--- OUTSIDE RECORDS SUMMARY | 2024-06-22 13:35 | XMS_ITS | Clinical Summary ---
Author Organization [facility] Address [address] [place] [address] Phone Care Team Providers Care Sea Foam Kiss Maker Name Role Phone Sheng Castillo MD Unavailable [phone] Kg Syed DPAgusto Unavailable [phone] Jose De La Fuente MD Unavailable Pawel Wheeler MD Unavailable [phone] Stacie Lemon MD Unavailable Silvino Malagon MD [...] Take 1 Tablet by mouth daily. Active sacubitril-valsa rtan (Entresto) 24-26 MG TabletIndication s:Congestive heart failure, unspecified HF chronicity, unspecified heart failure type (HCC) Take 1 Tablet by mouth 2 times daily. 180 Tablet 4 10/01/19 23 Active montelukast (SINGULAIR) 10 MG Tablet Take 1 Tablet by mouth every morning. 90 Tablet 3 02/08/19 24 Active spironolactone (ALDACTONE) 25 MG TabletIndication s:Elevated brain natriuretic peptide (BNP) level TAKE 1 TABLET BY MOUTH EVERY DAY 90 Tablet 1 03/07/19 24 Active atorvastatin (LIPITOR) 80 MG Tablet TAKE 1 TABLET BY MOUTH NIGHTLY 90 Tablet 3 03/09/19 24 Active venlafaxine (EFFEXOR-XR) 75 MG CAPSULE SR 24 HR TAKE 1 CAPSULE BY MOUTH EVERY DAY 90 Capsule 3 04/21/19 24 Active apixaban (ELIQUIS) 5 MG TabletIndication s:Atrial Fibrillation Take 1 Tablet by mouth 2 times daily. Indications: Atrial Fibrillation 180 Tablet 1 04/21/19 24 Active Mirabegron ER (Myrbetriq) 50 MG TABLET SR 24 HR Take 50 mg by mouth daily. 30 Tablet 3 04/21/19 24 Active gabapentin (NEURONTIN) 100 MG Capsule TAKE 1 CAPSULE BY MOUTH EVERY DAY AT NIGHT 90 Capsule 1 05/18/19 24 Active Glucose Blood (OneTouch Verio) StripIndications :Type 2 diabetes mellitus without complication, with long-term current use of insulin Test three times daily. 200 Each 3 06/22/19 24 Active B-D ULTRAFINE III SHORT PEN 31G X 8 MM MiscIndications: Type 2 diabetes mellitus with diabetic neuropathy, unspecified (HCC) USE TO INJECT INSULIN FOUR TIMES DAILY 400 Pen Needle 1 08/08/19 24 Active levothyroxine (SYNTHROID) 75 MCG Tablet TAKE 1 TABLET BY MOUTH EVERY DAY 90 Tablet 1 09/19/19 24 Active Empagliflozin (JARDIANCE PO) Take by mouth. Active insulin lispro prot & lispro (HumaLOG Mix 75/25 KwikPen) (75-25) 100 UNIT/ML Suspension Pen-injector 26 units at breakfast and 10 units at dinner 30 mL 02/19/19 25 Active metoprolol tartrate (LOPRESSOR) 25 MG Tablet Take 25 mg by mouth 2 times daily. Active levETIRAcetam (Keppra) 750 MG TabletIndication s:Focal seizure (HCC) Take 1 Tablet by mouth 2 times daily. 60 Tablet 1 05/01/19 25 Active Additional Information Patient taking differently: 1,000 mgOral 2 TIMES DAILY, Reported on 05/28/2024 Lancets (OneTouch Delica Plus [id number]) MiscIndications: Type 2 diabetes mellitus without complication, with long-term current use of insulin TEST TWICE A DAY E11.9, insulin dependent 200 Each 3 05/16/19 25 Active Blood Glucose Monitoring Suppl (Visual Threatuch Verio Reflect) w/Device Kit Check blood glucose at breakfast and dinner 1 Kit 05/29/19 Active Insulin Lispro, 1 Unit Dial, (HumaLOG KwikPen) 100 UNIT/ML Solution Pen-injector Correctional factor insulin of 1:25 if >200 mg/dL, up to 30 units per day 30 mL 1 05/30/19 25 Active Blood Glucose Monitoring Suppl (Visual Threatuch Verio) w/Device KitIndications:T ype 2 diabetes mellitus without complication, with long-term current use of insulin Test twice daily. 1 Kit 04/27/19 23 025 Discontin ued(Dupli dennis Order) Active Problems Problem Noted Date Diagnosed Date [...] Encounters Date Type Department Care Team Description 06/16/2024 Refill [facility] - Primary Care - [place] [address] [place] [phone] Salomón Meehan MD Medication Refill 06/05/2024 Telephone [facility] Endocrinology [facility] [address] [place] [address] Stacie Lemon MD Medication Management 05/29/2024 Telephone [facility] [address] [place] [address] Stacie Lemon MD High Blood Sugar 05/28/2024 9:30 AM CDT Office Visit [facility] [address] [place] [address] Stacie Lemon MD Type 2 diabetes mellitus with diabetic polyneuropathy, with long-term current use of insulin (HCC) (Primary Dx); Insulin dose changed ([facility]); Class 1 obesity due to excess calories with serious comorbidity and body mass index (BMI) of 31.0 to 31.9 in adult; Medication side effect Discharge Disposition: Discharged to home or Selfcare 05/28/2024 Travel 05/15/2024 Refill [facility] - [place] [address] [place] [address] Stacie Lemon MD Medication Refill 05/11/2024 Refill [facility] Primary [facility] - [place] [address] [place] [address] Salomón Meehan MD Medication Refill 04/30/2024 Refill [facility] Neurology - [place] [address] [place] [address] Pawel Wolfe MD Medication Refill 03/30/2024 [facility] [place] [address] [place] [address] Salomón Meehan MD Medication Refill from Last [...] Adjuvanted 12/27/2022 Influenza, high-dose, trivalent, PF 11/07/2014 Influenza,Split Virus,Trivalent,Injectable,PF 11/16/2023 PUR FLU HIGH DOSE (FLUZONE) 11/17/2015 PUR PCV-13 07/17/2015 Pneumococcal Vaccine Adult - 23 Valent 0 Pneumococcal conjugate PCV20 , polysaccharide [id number] conjugate, adjuvant, PF 01/11/2024 RSV, Bivalent, Protein Subun it Rsvpref, Diluent Reconstit (Abrysvo) 01/11/2024 TB Skin Test 10/01/2023 Tetanus Toxoid, Unspecified Formulation 12/08/2011 Tuberculin Skin Test; Purifi ed Protein Derivative Solutiol 10/01/2023 Zoster Vaccine Recombinant 06/23/2018,01/18/2018 Zoster Vaccine, live [...] Sign Reading Time Taken Comments Blood Pressure 112/72 05/28/2024 9:16 AM CDT Pulse 72 05/28/2024 9:16 AM CDT Temperature 36.2 C (97.2 F) 05/28/2024 9:16 AM CDT Respiratory Rate 22 05/28/2024 9:16 AM CDT Oxygen Saturation 95% 05/28/2024 9:16 AM CDT Inhaled Oxygen Concentration - - Weight 88.4 kg (194 lb 12.8 oz) 05/28/2024 9:16 AM CDT Height 167.6 cm (5' 6 ) 03/01/2024 10:2 1 AM CONDENSER CLEANER Body Mass Index 31.44 03/01/2024 10:21 AM CONDENSER CLEANER Plan of Treatment Upcoming Encounters Date Type Department Care Team (Late st Contact Info) Description 08/22/2024 9:30 AM CDT Office Visit [facility] - Endocrinology - [place] [address] [place] [address] Stacie Lemon MD [address] [address] 08/30/2024 10:00 AM CDT Office Visit [facility] - Neurology - [place] [address] [place] [address] Vickie Stallworth APRN, BOLT MAN [address] [place] [address] Health Maintenance Due Date Last Done Comments TdaP Immunization 1940 Diabetes: Eye Exam 01/14/2023 01/14/2022 DEXA Bone Density 04/10/2023 04/09/2021, 07/26/2012 SARS-COV-2 Immunization ( season) 2024 01/11/2024, 12/17/2021, 08/12/2021, Additional history exists Diabetes: Nephropathy Screening 09/09/2024 09/10/2023, 08/23/2023, 08/23/2023, Additional history exists Diabetes: Hemoglobin A1c 11/27/2024 025, 02/20/2024, 11/15/2023, Additional history exists Diabetes: Foot Exam 05/28/2025 05/28/2024 Zoster Immunization Completed 06/23/2018, 01/18/2018, 04/16/2016 Hepatitis C Virus (HCV) Screening Completed 02/08/2023 Influenza Immunization Completed , 12/27/2022, 11/04/2021, Additional history exists Pneumococcal Immunization (50+ years) Completed 01/11/2024, 07/17/2015, 12/04/2009 Pneumococcal Immunization Combined Discontinued 01/11/2024, 07/17/2015, 12/04/2009 Respiratory Syncytial Virus (RSV) Immunization (Adult) Completed 01/11/2024 Hepatitis B Immunization Aged Out No longer eligible based on patient's age to complete this topic Human Papillomavirus (HPV) Immunization Aged Out No longer eligible based on patient's age to complete this topic Meningococcal Immunization (ACWY) Aged Out No longer eligible based on patient's age to complete this topic Rotavirus Immunization Aged Out No lo nger eligible based on patient's age to complete this topic Procedures Procedure Name Priority Date/Time Associated Diagnosis Comments POCT GLYCOSYLATED HEMOGLOBIN Routine 05/28/2024 9:20 AM CDT Type 2 diabetes mellitus with diabetic polyneuropathy, with long-term current use of insulin (HCC) CMP (COMPREHENSIVE METABOLIC PANEL) 09/10/2023 12:00 AM CDT HEPATITIS C ANTIBODY Routine 02/08/2023 10:45 AM CONDENSER CLEANER Encounter for hepatitis C screening test for low risk patient HM DILATED EYE EXAM 01/14/2022 1 2:00 AM CONDENSER CLEANER ERIN BONE DENSITOMETRY AXIAL SKELETON Routine 04/09/2021 1:42 PM CONDENSER CLEANER Menopausal and postmenopausal disorder Encounter for screening for osteoporosis from Last 3 Months or Most Recently Relevant to Health Maintenance Results * (ABNORMAL) POCT GLYCOSYLATED HEMOGLOBIN (05/28/2024 9:20 AM CDT) HGB-A1C 10.1(A) 4 - 6 % Blood 05/28/2024 9:20 AM CDT us Stacie Lemon MD POINT OF CARE TESTING (MANUAL) F inal Result * CMP (COMPREHENSIVE METABOLIC PANEL) (09/10/2023 12:00 AM CDT) 09/10/2023 us Provider Scan CHEMISTRY ORDERABLES Final Resul t Performing Organization Address City/[facility]/ZIP Co de Phone Number SCAN * HEPATITIS C ANTIBODY (02/08/2023 10:45 AM CONDENSER CLEANER) hepatitis C antibody 0.09 <1 S/[facility] [id number] B 02/08/2023 9:45 PM CONDENSER CLEANER [facility] Comment: Signal/Cutoff ratio < 0.79 is Nondetected Signal/Cutoff ratio 0.80-0.99 is Grayzone Signal/Cutoff ratio > 0.99 is Detected Supplemental assays are recommended if signal/cutoff ratio is >/=1.00. Signal/cutoff ratio result >/= 5.00 is 97% predictive of positivity for recombinant immunoblot assay (RIBA) and will be reported to the [place] Department of Public Health as required. Blood Venipuncture / Unknown 02/08/2023 10:45 AM CONDENSER CLEANER 02/08/2023 10:45 AM CONDENSER CLEANER us Salomón Meehan MD CHEMISTRY ORDERABLES Arianne l Result [facility] [address] [place] [address], [place] * HM DILATED EYE EXAM (01/14/2022 12:00 AM CONDENSER CLEANER) 01/14/2022 us Not On File Provider PROCEDURE/MINOR SURGICAL OR DERABLES Final Result SCAN * [facility] BONE DENSITOMETRY AXIAL SKELETON (04/09/2021 1:42 PM CONDENSER CLEANER) Anatomical Region Laterality Modality BODY N/A Other 04/09/2021 8:13 PM CONDENSER CLEANER Impressions 04/09/2021 8:15 PM CONDENSER CLEANER IMPRESSION: Normal bone mineral density by WHO [...] of Osteoporosis (http://www.nof.org/professionals/clinical-guidelines) Narrative 04/09/2021 8:15 PM CONDENSER CLEANER EXAM DESCRIPTION: [facility] BONE DENSITOMETRY AXIAL SKELETON REASON FOR STUDY: Post-menopausal female, screening for osteoporosis. Optical Fabricator/Model: Asanti (S/N [id number]) CLINICAL INFORMATION: Current height: 65 inches Maximum [...] Nik Arrington M.D. AB: AB Report ID: [id number] Reading Location: [place] [address] Procedure Note Nik Arrington MD - 04/09/2021 EXAM DESCRIPTION: ERIN BONE DENSITOMETRY AXIAL SKELETON REASON FOR STUDY: Post-menopausal female, screening for osteoporosis. Optical Fabricator/Model: Asanti (S/N [id number]) CLINICAL INFORMATION: Current height: 65 inches Maximum [...] by Nik Arrington M.D. AB: Report ID: [id number] Reading Location: [id number] IMPRESSION: Normal bone mineral density by WHO [...] to Prevention and Treatment of Osteoporosis (http://www.nof.org/professionals/clinical-guidelines) us Ramirez Esquivel PAC IMG DEXA ORDERABLES Arianne ortiz Result from Last 3 Months or Most Recently Relevant to Health Maintenance Insurance MEDICARE C [employer] Advance Directives Documents on File Type Date Recorded Patient Monument Setter Expl anation POLST/POST/ND DNR 04/29/2023 11:04 AM POLS T, 04/21/2023 [...] measures to stabilize the patient. Care Teams Sea Foam Kiss Maker Relationship Specialty Start Date End Date Silvino Malagon MD [address] [place] [address] PCP - General Pediatrics 11/29/23 Sheng Castillo MD [address] [place] [address] Ophthalmology 06/28/19 Kg Syed DPM [address] [place] [address] Consulting Physician Podiatry 01/14/21 Jose De La Fuente MD [address] [place] [address] Consulting Physician Cardiovascular Disease - Cardiology 02/23/22 Pawel Wolfe MD [address] [place] [address] Consulting Physician Neurology 11/04/22 Stacie Lemon MD [address] [address] Consulting Physician Endocrinology 06/16/23
--- OUTSIDE RECORDS SUMMARY | 2024-06-22 13:35 | XMS_ITS | Encounter Summary ---
Author Organization [facility] Address [address] [place] [address] Phone Care Team Providers Care Transition Program Manager Name Role Phone Salomón Meehan MD Primary Care Provider Sheng Castillo MD Unavailable [phone] Kg Syed DPM Unavailable Jose De La Fuente MD Unavailable Pawel Wheeler MD Unavailable [phone] Stacie Lemon MD Unavailable Silvino Malagon MD Primary Care Provider [phone] Reason for Visit * Reason Comments Medication Refill Encounter Details Date Type Department Care Team (Late st Contact Info) Description 07/15/2023 Refill [facility] - Primary Care - [place] [address] [place] [address] Salomón Meehan MD [address] [place] [address] Medication Refill Social History Tobacco [...] Description 08/22/2024 9:30 AM CDT Office Visit [facility] - Endocrinology - [place] [address] [place] [address] Stacie Lemon MD [address] [address] 08/30/2024 10:00 AM CDT [facility] [place] [address] [place] [address] Vickie Stallworth APRN, ENGRAVER BLOCK [address] [place] [address] documented as of this encounter Visit Diagnoses Not on filedocumented in this encounter Additional Health Concerns Infection Onset Date Last Indicated Resolved Time Respiratory Rule-Out 07/15/2023 07/15/2023 024 1:25 PM CDT Respiratory Rule-Out 08/23/2023 08/23/2023 024 6:42 AM CDT Assessment Noted Time PHQ-9 Depression Total Score: 0 02/08/19 10:13 AM AIRCRAFT MAINTENANCE TECHNICIAN documented as of this encounter Care Teams Transition Program Manager Relationship Specialty Start Date End Date Salomón Meehan MD [address] [place] [address] PCP - General Internal Medicine 10/20/14 11/14/23 Silvino Malagon MD [address] [place] [address] PCP - General Pediatrics 11/29/23 Sheng Castillo MD [address] [place] [address] Ophthalmology 06/28/19 Kg Syed DPM [address] [place] [address] Consulting Physician Podiatry 01/14/21 Jose De La Fuente MD [address] [place] [address] Consulting Physician Cardiovascular Disease - Cardiology 02/23/22 Pawel Wolfe MD [address] [place] [address] Consulting Physician Neurology 11/04/22 Stacie Lemon MD [address] [address] Consulting Physician Endocrinology 06/16/23 documented as of this encounter
--- OUTSIDE RECORDS SUMMARY | 2024-06-22 13:35 | XMS_ITS | Encounter Summary ---
Author Organization [facility] Address [address] [place] [address] Phone Care Team Providers Care Magnetic Observer Name Role Phone Salomón Meehan MD Primary Care Provider [phone] Sheng Castillo MD Unavailable [phone] Kg Syed DPM Unavailable Jose De La Fuente MD Unavailable KathiorPawel Gregorio MD Unavailable Stacie Lemon MD Unavailable Silvino Malagon MD Primary Care Provider [phone] Reason for Visit * Reason Comments Medication Refill Encounter Details Date Type Department Care Team (Late st Contact Info) Description 10/29/2020 Refill [facility] [address] [place] [address] Salomón Meehan MD [address] [place] [address] Medication Refill Social History Tobacco [...] Description 08/22/2024 9:30 AM CDT Office Visit [facility] - Endocrinology - [place] [address] [place] [address] Stacie Lemon MD #[address] [address] 08/30/2024 10:00 AM CDT [facility] - [facility]rology - [place] [address] [place] [address] Vickie Stallworth, VARNISH COOKER, YARN REWINDER [address] [place] [address] documented as of this encounter Visit Diagnoses Not on filedocumented in this encounter Additional Health Concerns Infection Onset Date Last Indicated Resolved Time COVID - 19 12/27/2021 12/27/2021 12/28/2021 8:17 AM FIRER PORTABLE BOILER Respiratory Rule-Out 12/27/2021 12/27/2021 022 12:56 AM FIRER PORTABLE BOILER Respiratory Rule Out - RPA 12/28/2021 12/28/2021 1 02/27/2021 10:34 PM FIRER PORTABLE BOILER RSV 12/28/2021 12/28/2021 01/25/2022 12:1 6 AM FIRER PORTABLE BOILER Respiratory Rule-Out 07/15/2023 07/15/2023 024 1:25 PM CDT Respiratory Rule-Out 08/23/2023 08/23/2023 024 6:42 AM CDT Assessment Noted Time PHQ-9 Depression Total Score: 0 11/17/19 10:00 AM CDT documented as of this encounter Care Teams Magnetic Observer Relationship Specialty Start Date End Date Salomón Meehan MD [address] [place] [address] PCP - General Internal Medicine 10/20/14 11/14/23 Silvino Malagon MD [address] [place] [address] PCP - General Pediatrics 11/29/23 Sheng Castillo MD [address] [place] [address] Ophthalmology 06/28/19 Kg Syed DPM [address] [place] [address] Consulting Physician Podiatry 01/14/21 Jose De La Fuente MD [address] [place] [address] Consulting Physician Cardiovascular Disease - Cardiology 02/23/22 Pawel Wolfe MD [address] [place] [address] Consulting Physician Neurology 11/04/22 Stacie Lemon MD #[address] [address] Consulting Physician Endocrinology 06/16/23 documented as of this encounter
--- OUTSIDE RECORDS SUMMARY | 2024-06-22 13:35 | XMS_ITS | Encounter Summary ---
Author Organization [facility] Address [address] [place] [address] Phone Care Team Providers Care Area Development Manager Name Role Phone Salomón Meehan MD Primary Care Provider [phone] Sheng Castillo MD Unavailable [phone] Kg Syed DPM Unavailable Jose De La Fuente MD Unavailable Pawel Wheeler MD Unavailable Stacie Lemon MD Unavailable Silvino Malagon MD Primary Care Provider [phone] Reason for Visit * Reason Comments Medication Refill Encounter Details Date Type Department Care Team (Late st Contact Info) Description 05/06/2021 [facility]ill [facility] [address] [place] [address] Salomón Meehan MD [address] [place] [address] Medication Refill Social History Tobacco [...] COVID-19? No / Unsure 04/09/2021 12:52 PM FAGOT MAKER documented as of this encounter Miscellaneous Notes * Telephone Encounter - Ilana Funes RN - 05/07/2021 8:02 AM CDT Medication approved and signed per standing order protocol. documented in this encounter Plan of Treatment Upcoming Encounters Date Type Department Care Team (Late st Contact Info) Description 08/22/2024 9:30 AM CDT Office Visit [facility] - Endocrinology - [place] [address] [place] [address] Stacie Lemon MD #[address] [address] 08/30/2024 10:00 AM CDT Office Visit [facility] - Neurology - [place] [address] [place] [address] Vickie Stallworth APRN, BOTTOM CEMENTER [address] [place] [address] documented as of this encounter Visit Diagnoses Not on filedocumented in this encounter Additional Health Concerns Infection Onset Date Last Indicated Resolved Time COVID - 19 12/27/2021 12/27/2021 12/28/2021 8:17 AM FAGOT MAKER Respiratory Rule-Out 12/27/2021 12/27/2021 022 12:56 AM FAGOT MAKER Respiratory Rule Out - RPA 12/28/2021 12/28/2021 1 02/27/2021 10:34 PM FAGOT MAKER RSV 12/28/2021 12/28/2021 01/25/2022 12:1 6 AM FAGOT MAKER Respiratory Rule-Out 07/15/2023 07/15/2023 024 1:25 PM CDT Respiratory Rule-Out 08/23/2023 08/23/2023 024 6:42 AM CDT Assessment Noted Time PHQ-9 Depression Total Score: 0 11/17/19 10:00 AM CDT documented as of this encounter Care Teams Area Development Manager Relationship Specialty Start Date End Date Salomón Meehan MD [address] [place] [address] PCP - General Internal Medicine 10/20/14 11/14/23 Silvino Malagon MD [address] [place] [address] PCP - General Pediatrics 11/29/23 Sheng Castillo MD [address] [place] [address] Ophthalmology 06/28/19 Kg Syed DPM [address] [place] [address] Consulting Physician Podiatry 01/14/21 Jose De La Fuente MD [address] [place] [address] Consulting Physician Cardiovascular Disease - Cardiology 02/23/22 Pawel Wolfe MD [address] [place] [address] Consulting Physician Neurology 11/04/22 Stacie Lemon MD #[address] [address] Consulting Physician Endocrinology 06/16/23 documented as of this encounter
--- OUTSIDE RECORDS SUMMARY | 2024-06-22 13:35 | XMS_ITS | Encounter Summary ---
Author Organization [facility] Address [address] [place] [address] Phone Care Team Providers Care Box Toe Cementer Name Role Phone Salomón Meehan MD Primary Care Provider Sheng Castillo MD Unavailable [phone] Kg Syed DPM Unavailable Jose De La Fuente MD Unavailable Pawel Wheeler MD Unavailable Stacie Lemon MD Unavailable Silvino Malagon MD Primary Care Provider [phone] Reason for Visit * Reason Comments Medication Refill Encounter Details Date Type Department Care Team (Late st Contact Info) Description 02/28/2022 Refill [facility] - Primary Care - [place] [address] [place] [address] Salomón Meehan MD [address] [place] [address] Medication Refill Social History Tobacco [...] Coronavirus/COVID-19? No / Unsure 02/25/2022 1:16 PM FIELD SAMPLING TECHNICIAN documented as of this encounter Miscellaneous Notes * Telephone Encounter - Pepper Godinez RN - 03/01/2022 9:12 AM FIELD SAMPLING TECHNICIAN Refill requested too soon. D SAMPLING TECHNICIAN documented in this encounter Plan of Treatment Upcoming Encounters Date Type Department Care Team (Late st Contact Info) Description 08/22/2024 9:30 AM CDT Office Visit [facility] Group - Endocrinology - [place] [address] [place] [address] Stacie Lemon MD #[address] [address] 08/30/2024 10:00 AM CDT Office Visit [facility] - Neurology - [place] [address] [place] [address] Vickie Stallworth APRN, FUR REPAIR INSPECTOR [address] [place] [address] documented as of this encounter Visit Diagnoses Not on filedocumented in this encounter Additional Health Concerns Infection Onset Date Last Indicated Resolved Time Respiratory Rule-Out 07/15/2023 07/15/2023 024 1:25 PM CDT Respiratory Rule-Out 08/23/2023 08/23/2023 024 6:42 AM CDT Assessment Noted Time PHQ-9 Depression Total Score: 0 11/17/19 19 10:00 AM CDT documented as of this encounter Care Teams Box Toe Cementer Relationship Specialty Start Date End Date Salomón Meehan MD [address] [place] [address] PCP - General Internal Medicine 10/20/14 11/14/23 Silvino Malagon MD [address] [place] [address] PCP - General Pediatrics 11/29/23 Sheng Castillo MD [address] [place] [address] Ophthalmology 06/28/19 Kg Syed DPM [address] [place] [address] Consulting Physician Podiatry 01/14/21 Jose De La Fuente MD [address] [place] [address] Consulting Physician Cardiovascular Disease - Cardiology 02/23/22 Pawel Wolfe MD [address] [place] [address] Consulting Physician Neurology 11/04/22 Stacie Lemon MD #[address] [address] Consulting Physician Endocrinology 06/16/23 documented as of this encounter
--- OUTSIDE RECORDS SUMMARY | 2024-06-22 13:35 | XMS_ITS | Encounter Summary ---
Author Organization [facility] Address [address] [place] [address] Phone Care Team Providers Care Facility Worker Name Role Phone Salmoón Meehan MD Primary Care Provider [phone] Sheng Castillo MD Unavailable [phone] Kg Syed DPM Unavailable [phone] Jose De La Fuente MD Unavailable Pawel Wheeler MD Unavailable Stacie Lemon MD Unavailable Silvino Malagon MD Primary Care Provider [phone] Reason for Visit * Reason Comments Medication Refill Encounter Details Date Type Department Care Team (Late st Contact Info) Description 07/18/2023 Refill [facility] - Primary [place] - [place] [address] [place] [address] Salomón Meehan MD [address] [place] [address] Medication Refill Social History Tobacco [...] discontinued on 04/21/2023 by Hazel Acuña APRN, HEALTH CARE SANITARY TECHNICIAN for the following reason: Reorder. documented in this encounter Plan of Treatment Upcoming Encounters Date Type Department Care Team (Late st Contact Info) Description 08/22/2024 9:30 AM CDT Office Visit [facility] - Endocrinology - [place] [address]2 [place] [address] Stacie Lemon MD #[address] [address] 08/30/2024 10:00 AM CDT Office Visit [facility] - Neurology - [place] [address]2 [place] [address] Vickie Stallworth APRN, BUSINESS PERFORMANCE SPECIALIST #2 [place] [address] documented as of this encounter Visit Diagnoses Diagnosis Elevated brain natriuretic peptide (BNP) level Other nonspecific findings on examination of blood documented in this encounter Additional Health Concerns Infection Onset Date Last Indicated Resolved Time Respiratory Rule-Out 07/15/2023 07/15/2023 024 1:25 PM CDT Respiratory Rule-Out 08/23/2023 08/23/2023 024 6:42 AM CDT Assessment Noted Time PHQ-9 Depression Total Score: 0 02/08/19 10:13 AM DIRECTOR OF CONTRACTS documented as of this encounter Care Teams Facility Worker Relationship Specialty Start Date End Date Salomón Meehan MD [address] [place] [address] PCP - General Internal Medicine 10/20/14 11/14/23 Silvino Malagon MD [address] [place] [address] PCP - General Pediatrics 11/29/23 Sheng Castillo MD [address] [place] [address] Ophthalmology 06/28/19 Kg Syed DPM [address] [place] [address] Consulting Physician Podiatry 01/14/21 Jose De La Fuente MD [address] [place] [address] Consulting Physician Cardiovascular Disease - Cardiology 02/23/22 Pawel Wolfe MD #1 [place] [address] Consulting Physician Neurology 11/04/22 Stacie Lemon MD #[address] [phone] Consulting Physician Endocrinology 06/16/23 documented as of this encounter
--- OUTSIDE RECORDS SUMMARY | 2024-06-22 13:35 | XMS_ITS | Encounter Summary ---
Author Organization [facility] Address [address] [place] [address] Phone Care Team Providers Care Dairy Farm Worker Name Role Phone Salomón Meehan MD Primary Care Provider [phone] Sheng Castillo MD Unavailable [phone] Kg Syed DPM Unavailable Jose De La Fuente MD Unavailable Pawel Wheeler MD Unavailable [phone] Stacie Lemon MD Unavailable Silvino Malagon MD Primary Care Provider [phone] Reason for Visit * Reason Comments Medication Refill Encounter Details Date Type Department Care Team (Late st Contact Info) Description 10/28/2023 Refill [facility] - Primary Care - [place] [address] [place] [address] Salomón Meehan MD [address] [place] [address] Medication Refill Social History Tobacco [...] 08/22/2024 9:30 AM CDT Office Visit [facility] - Endocrinology - [place] #2 [place] [address] Stacie Lemon MD #[address] [address] 08/30/2024 10:00 AM CDT Office Visit [facility] Medical [facility] - Neurology - [place] #2 [place] [address] Vickie Stallworth APRN, DATABASE CONSULTANT #2 [place] [address] documented as of this encounter Visit Diagnoses Diagnosis Elevated brain natriuretic peptide (BNP) level Other nonspecific findings on examination of blood documented in this encounter Additional Health Concerns Assessment Noted Time PHQ-9 Depression Total Score: 0 02/08/19 10:13 AM PRODUCT SAFETY TECHNICAL ASSISTANT documented as of this encounter Care Teams Dairy Farm Worker Relationship Specialty Start Date End Date Salomón Meehan MD [address] [place] [address] PCP - General Internal Medicine 9/13/15 10/7/24 Silvino Malagon MD [address] [place] [address] PCP - General Pediatrics 11/29/23 Sheng Castillo MD [address] [place] [address] Ophthalmology 06/28/19 Kg Syed DPM [address] [place] [address] Consulting Physician Podiatry 01/14/21 Jose De La Fuente MD [address] [place] [address] Consulting Physician Cardiovascular Disease - Cardiology 02/23/22 Pawel Wolfe MD #1 [place] [address] Consulting Physician Neurology 11/04/22 Stacie Lemon MD #[address] [phone] Consulting Physician Endocrinology 06/16/23 documented as of this encounter
--- OUTSIDE RECORDS SUMMARY | 2024-06-22 13:35 | XMS_ITS | Encounter Summary ---
Author Organization [facility] Address [address] [place] [address] Phone Care Team Providers Care Mercerizer Machine Operator Name Role Phone Salomón Meehan MD Primary Care Provider [phone] Sheng Castillo MD Unavailable [phone] Kg ySed DPM Unavailable [phone] Jose De La Fuente MD Unavailable Pawel Wheeler MD Unavailable [phone] Stacie Lemon MD Unavailable Silvino Malagon MD Primary Care Provider [phone] Encounter Details Date Type Department Care Team (Latest Contact Info) Description 05/27/2022 [facility] [address] [place] [address] Jose De La Fuente MD [...] Description 08/22/2024 9:30 AM CDT Office Visit [facility] Medical [facility] - Endocrinology - [place] #2 [place] [address] Stacie Lemon MD #[address] [address] 08/30/2024 10:00 AM CDT [facility] - [facility] - [place] #[address] [place] [address] Vickie Stallworth APRN, SENIOR CONSTRUCTION ESTIMATOR #2 [place] [address] documented as of this encounter Results * PROTIME (PT) (PROTHROMBIN TIME) (06/01/2022 10:58 AM CDT) PROTIME-PATIENT 12.8 11.6 - 14.8 sec 06/01/2022 11:33 AM CDT [facility] INR 1.0 0.9 - 1.2 06/01/2022 11:33 AM CDT [facility] Comment: Therapeutic Ranges INR = 2.0-3.0: Venous thromb, atrial fib, pul embolism, tissue heart valve, ami. INR = 2.5-3.5: Mechanical heart valve Critical value for INR is >/= 4.5 Blood Venipuncture / Unknown 06/01/2022 10:58 AM CDT 06/01/2022 11:06 AM CDT Jose Orantes MD HEMATOLOGY ORDERABLES F inal Result [facility] #1 [place] [address] * (ABNORMAL) BASIC METABOLIC PANEL W/ CALCIUM TOTAL (06/01/2022 10:58 AM CDT) SODIUM 136 136 - 144 mmol/L 06/01/2022 11:29 AM CDT [facility] POTASSIUM 5.3(H) 3.5 - 5.1 mmol/L 06/01/2022 11:29 AM CDT [facility] CHLORIDE 101 100 - 110 mmol/L 06/01/2022 11:29 AM CDT [facility] CO2, VENOUS 27 22 - 32 mmol/L 06/01/2022 11:29 AM CDT [facility] ANION GAP 13.3 8.0 - 20.0 mmol/L 06/01/2022 11:29 AM CDT [facility] GLUCOSE 204(H) 70 - 99 mg/dL 06/01/2022 11:29 AM CDT [facility] BUN 24(H) 8 - 23 mg/dL 06/01/2022 11:29 AM CDT [facility] CREATININE, BLOOD 1.36(H) 0.60 - 1.10 mg/dL 06/01/2022 11:29 AM CDT [facility] BUN/CREATININE RATIO 18 12 - 20 ratio 06/01/2022 11:29 AM CDT [facility] CALCIUM 9.9 8.9 - 10.3 mg/dL 06/01/2022 11:29 AM CDT [facility] IS THE PATIENT REQUIRED TO BE FASTING? No 06/01/2022 11:29 AM CDT [facility] GFR, ESTIMATED 39(L) >=60 06/01/2022 11:29 AM CDT [facility] Comment: Creatinine Clearance is the preferred criteria for selecting drug dose adjustments in renally impaired patients. The GFR is provided as additional pertinent clinical information. GFR is reported in mL/min/1.73 sq m. Calculation based on the Chronic Kidney Disease Epidemiology Collaboration (CKD- EPI) equation refit without adjustment for race. GFR, EST. 45(L) >=60 023 11:29 AM CDT [facility] GFR, EST. NONAFRICAN 37(L) >=60 06/01/2022 11:29 AM CDT [facility] Blood Venipuncture / Unknown 06/01/2022 10:58 AM CDT 06/01/2022 11:07 AM CDT Jose Orantes MD CHEMISTRY ORDERABLES Fi nal Result [facility] [address] [place] [address] documented in this encounter Visit Diagnoses Diagnosis [...] documented as of this encounter Care Teams Mercerizer Machine Operator Relationship Specialty Start Date End Date Salomón Meehan MD [address] [place] [address] PCP - General Internal Medicine 10/20/14 11/14/23 Silvino Malagon MD [address] [place] [address] PCP - General Pediatrics 11/29/23 Sheng Castillo MD [address] [place] [address] Ophthalmology 06/28/19 Kg Syed DPM [address] [place] [address] Consulting Physician Podiatry 01/14/21 Jose De La Fuente MD [address] [place] [address] Consulting Physician Cardiovascular Disease - Cardiology 02/23/22 Pawel Wolfe MD #[address] [place] [address] Consulting Physician Neurology 11/04/22 Stacie Lemon MD #[address] [phone] Consulting Physician Endocrinology 06/16/23 documented as of this encounter
--- OUTSIDE RECORDS SUMMARY | 2024-06-22 13:35 | XMS_ITS | Encounter Summary ---
Author Organization [facility] Address [address] [place] [address] Phone Care Team Providers Care Grain Grader Name Role Phone Salomón Meehan MD Primary Care Provider [phone] Sheng Castillo MD Unavailable [phone] Kg Syed DPM Unavailable Jose De La Fuente MD Unavailable Pawel Wheeler MD Unavailable Stacie Lemon MD Unavailable Silvino Malagon MD Primary Care Provider [phone] Reason for Visit * Reason Comments Medication Refill Encounter Details Date Type Department Care Team (Late st Contact Info) Description 10/22/2023 Refill [facility] - Primary Care - [place] [address] [place] [address] Salomón Meehan MD [address] [place] [address] Medication Refill Social History Tobacco [...] discontinued on 04/21/2023 by Hazel Acuña APRN, DENT REMOVER documented in this encounter Plan of Treatment Upcoming Encounters Date Type Department Care Team (Late st Contact Info) Description 08/22/2024 9:30 AM CDT [facility] Endocr[facility]ology - [place] #2 [place] [address] Stacie Lemon MD #[address] [address] 08/30/2024 10:00 AM CDT [facility] - [place] #[address] [place] [address] Vickie Stallworth APRN, HYDROGRAPHER #[address] [place] [address] documented as of this encounter Visit Diagnoses Diagnosis Elevated brain natriuretic peptide (BNP) level Other nonspecific findings on examination of blood documented in this encounter Additional Health Concerns Assessment Noted Time PHQ-9 Depression Total Score: 0 02/08/19 24 10:13 AM CHIEF TRANSFER AND PUMPHOUSE OPERATOR documented as of this encounter Care Teams Grain Grader Relationship Specialty Start Date End Date Salomón Meehan MD [address] [place] [address] PCP - General Internal Medicine 10/20/14 11/14/23 Silvino Malagon MD [address] [place] [address] PCP - General Pediatrics 11/29/23 Sheng Castillo MD [address] [place] [address] Ophthalmology 06/28/19 Kg Syed DPM [address] [place] [address] Consulting Physician Podiatry 01/14/21 Jose De La Fuente MD [address] [place] [address] Consulting Physician Cardiovascular Disease - Cardiology 02/23/22 Pawel Wolfe MD #1 [place] [address] Consulting Physician Neurology 11/04/22 Stacie Lemon MD #[address] [address] Consulting Physician Endocrinology 06/16/23 documented as of this encounter
--- OUTSIDE RECORDS SUMMARY | 2024-06-22 13:35 | XMS_ITS | Encounter Summary ---
Author Organization [facility] Address [address] [place] [address] Phone Care Team Providers Care Bus Company Manager Name Role Phone Salomón Meehan MD Primary Care Provider [phone] Sheng Castillo MD Unavailable [phone] Kg Syed DPM Unavailable Jose De La Fuente MD Unavailable KathiutPawel Gregorio MD Unavailable [phone] Stacie Lemon MD Unavailable Silvino Malagon MD Primary Care Provider [phone] Reason for Visit * Reason Comments Medication Refill Encounter Details Date Type Department Care Team (Late st Contact Info) Description 10/06/2020 Refill [facility] [address] [place] [address] Salomón Meehan MD [address] [place] [address] Medication Refill Social History Tobacco [...] Description 08/22/2024 9:30 AM CDT Office Visit [facility] Medical Group - Endocrinology - [place] #[address] [place] [address] Stacie Lemon MD #[address] [address] 08/30/2024 10:00 AM CDT [facility] - Neurology - [place] #[address] [place] [address] Vickie Stallworth, SLAB LIFTING SUPERVISOR, FUSION JUNCTURE GRINDER [address] [place] [address] documented as of this encounter Visit Diagnoses Not on filedocumented in this encounter Additional Health Concerns Infection Onset Date Last Indicated Resolved Time COVID - 19 12/27/2021 12/27/2021 12/28/2021 8:17 AM INSULATION BLOWER Respiratory Rule-Out 12/27/2021 12/27/2021 022 12:56 AM INSULATION BLOWER Respiratory Rule Out - RPA 12/28/2021 12/28/2021 1 02/27/2021 10:34 PM INSULATION BLOWER RSV 12/28/2021 12/28/2021 01/25/2022 12:1 6 AM INSULATION BLOWER Respiratory Rule-Out 07/15/2023 07/15/2023 024 1:25 PM CDT Respiratory Rule-Out 08/23/2023 08/23/2023 024 6:42 AM CDT Assessment Noted Time PHQ-9 Depression Total Score: 0 11/17/19 10:00 AM CDT documented as of this encounter Care Teams Bus Company Manager Relationship Specialty Start Date End Date Salomón Meehan MD [address] [place] [address] PCP - General Internal Medicine 10/20/14 11/14/23 Silvino Malagon MD [address] [place] [address] PCP - General Pediatrics 11/29/23 Sheng Castillo MD [address] [place] [address] Ophthalmology 06/28/19 Kg Syed DPM [address] [place] [address] Consulting Physician Podiatry 01/14/21 Jose De La Fuente MD [address] [place] [address] Consulting Physician Cardiovascular Disease - Cardiology 02/23/22 Pawel Wolfe MD #[address] [place] [address] Consulting Physician Neurology 11/04/22 Stacie Lemon MD #[address] [address] Consulting Physician Endocrinology 06/16/23 documented as of this encounter
--- OUTSIDE RECORDS SUMMARY | 2024-06-22 13:36 | XMS_ITS | Clinical Summary ---
Author Organization [facility] Address [address] [place] [address] Care Team Providers Care Assistant Floor Covering Printer Name Role Phone Salomón Meehan MD Primary Care Provider [phone] Allergies Active Allergy Reactions Criticality Noted Date [...] this topic Medical Devices Implanted Type Area Host Coordinator Device Identifier Shelf Expiration Date Model / Serial / Lot Lens Lens Iol Alfonso [id number] - [id number] Implanted:Qty: 1 on 07/24/2019 by Sheng Castillo MD at [facility] Lens Left: Eye [employer] 08/07/2023 [id number] / [id number] / N/A Description:Implant verified by MD Insurance Care Teams Assistant Floor Covering Printer Relationship Specialty Start Date End Date Salomón Meehan MD PCP - General INTERNAL MEDICINE 04/21/19
--- OUTSIDE RECORDS SUMMARY | 2024-06-22 13:36 | XMS_ITS | Clinical Summary ---
Author Organization [facility] [address] [place] [facility] [place] Address [address] [place] [address] Care Team Providers Care Auto Detailer Name Role Phone Silvino Malagon MD Primary [...] 1 tablet (81 mg total) by mouth official court interpreter before breakfast Active cholecalciferol (VITAMIN D-3) 1,000 [...] on file Legal Sex Female 9:24 AM SAND CASTER APPRENTICE Gender Identity Not on file Sexual Orientation [...] Comments Blood Pressure 104/58 12/20/2023 9:27 AM SAND CASTER APPRENTICE Pulse 65 12/20/2023 9:27 AM SAND CASTER APPRENTICE Temperature - - Respiratory Rate - - Oxygen Saturation 96% 12/20/2023 9:27 AM SAND CASTER APPRENTICE Inhaled Oxygen Concentration - - Weight 83.9 kg (185 lb) 12/20/2023 9:27 AM SAND CASTER APPRENTICE Height 162.6 cm (5' 4 ) 12/20/2023 9:27 AM SAND CASTER APPRENTICE Body Mass Index 31.76 12/20/2023 9:27 AM SAND CASTER APPRENTICE Plan of Treatment Health Maintenance Due Date [...] Most Recently Relevant to Health Maintenance Insurance [facility] MEDICARE ADVANTAGE Care Teams Auto Detailer Relationship Specialty Start Date End Date Silvino Malagon MD [address] [place] [address] PCP - General Family Medicine 12/20/23
--- OUTSIDE RECORDS SUMMARY | 2024-06-22 13:36 | XMS_ITS | Referral Summary ---
Author Organization [facility] [address] [place] [facility] [place] Address [address] [place] [address] Care Team Providers Care Unit Secy Name Role Phone Silvino Malagon MD Primary [...] 1 tablet (81 mg total) by mouth padded box sewer before breakfast Active cholecalciferol (VITAMIN D-3) 1,000 [...] on file Legal Sex Female 9:24 AM ACCORDION TUNER Gender Identity Not on file Sexual Orientation Not on file Occupation Industry Job Start Date Job End Date retired Not on file Not on file Not on file Last Filed Vital Signs Vital Sign Reading Time Taken Comments Blood Pressure 104/58 12/20/2023 9:27 AM ACCORDION TUNER Pulse 65 12/20/2023 9:27 AM ACCORDION TUNER Temperature - - Respiratory Rate - - Oxygen Saturation 96% 12/20/2023 9:27 AM ACCORDION TUNER Inhaled Oxygen Concentration - - Weight 83.9 kg (185 lb) 12/20/2023 9:27 AM ACCORDION TUNER Height 162.6 cm (5' 4 ) 12/20/2023 9:27 AM ACCORDION TUNER Body Mass Index 31.76 12/20/2023 9:27 AM ACCORDION TUNER Plan of Treatment Not on file Procedures [...] Most Recently Relevant to Health Maintenance Insurance [facility] MEDICARE [facility]ANT[facility] Address: [address] [address] Care Teams Unit Secy Relationship Specialty Start Date End Date Silvino Malagon MD [address] [place] [address] PCP - General Family Medicine 12/20/23
--- OUTSIDE RECORDS SUMMARY | 2024-06-22 13:36 | XMS_ITS | Encounter Summary ---
Author Organization [facility] Address [address] [place] [address] Phone Care Team Providers Care Calciminer Name Role Phone Salomón Meehan MD Primary Care Provider [phone] Sheng Castillo MD Unavailable [phone] Kg Syed DPM Unavailable Jose De La Fuente MD Unavailable KathiwvPawel Gregorio MD Unavailable [phone] Stacie Lemon MD Unavailable Silvino Malagon MD Primary Care Provider [phone] Reason for Visit * Reason Comments Medication Refill Encounter Details Date Type Department Care Team (Late st Contact Info) Description 06/02/2020 Refill [facility] [address] [place] [address] Salomón Meehan MD [address] [place] [address] Medication Refill Social History Tobacco [...] Description 08/22/2024 9:30 AM CDT Office Visit [facility] Medical [facility] - Endocrinology - [place] #[address] [place] [address] Stacie Lemon MD #[address] [address] 08/30/2024 10:00 AM CDT Office Visit [facility] - Neurology - [place] [address] [place] [address] Vickie Stallworth APRN, MAINTENANCE OF WAY SUPERVISOR #[address] [place] [address] documented as of this encounter Visit Diagnoses Not on filedocumented in this encounter Additional Health Concerns Infection Onset Date Last Indicated Resolved Time COVID - 19 12/27/2021 12/27/2021 12/28/2021 8:17 AM SHIELD RUNNER Respiratory Rule-Out 12/27/2021 12/27/2021 022 12:56 AM SHIELD RUNNER Respiratory Rule Out - RPA 12/28/2021 12/28/2021 1 02/27/2021 10:34 PM SHIELD RUNNER RSV 12/28/2021 12/28/2021 01/25/2022 12:1 6 AM SHIELD RUNNER Respiratory Rule-Out 07/15/2023 07/15/2023 024 1:25 PM CDT Respiratory Rule-Out 08/23/2023 08/23/2023 024 6:42 AM CDT Assessment Noted Time PHQ-9 Depression Total Score: 0 11/17/19 19 10:00 AM CDT documented as of this encounter Care Teams Calciminer Relationship Specialty Start Date End Date Salomón Meehan MD [address] [place] [address] PCP - General Internal Medicine 10/20/14 11/14/23 Silvino Malagon MD [address] [place] [address] PCP - General Pediatrics 11/29/23 Sheng Castillo MD [address] [place] [address] Ophthalmology 06/28/19 Kg Syed DPM [address] [place] [address] Consulting Physician Podiatry 01/14/21 Jose De La Fuente MD [address] [place] [address] Consulting Physician Cardiovascular Disease - Cardiology 02/23/22 Pawel Wolfe MD [address] [place] [address] Consulting Physician Neurology 11/04/22 Stacie Lemon MD #[address] [phone] Consulting Physician Endocrinology 06/16/23 documented as of this encounter
[2024-06-22 14:17] LABS: Anion Gap 6 mmol/L (4-12); Blood Urea Nitrogen 29 mg/dL (7-17); Calcium 9.3 mg/dL (8.4-10.2); Carbon Dioxide 29 mmol/L (22-30); Chloride 102 mmol/L (98-107); Estimated Glomerular Filt Rate 29; Glucose 264 mg/dL (65-110); Osmolality Calculated 298 mOsm/kg (285-295); Sodium 137 mmol/L (137-145)
== END 2024-06-22 13:23 | disposition home or self-care (01) ==
LOC: CHSLAB 13:27
PROVIDERS: PCP Family Medicine; Visit Provider Family Medicine
DX: I10 Essential (primary) hypertension (principal)
CPT/HCPCS: 36415; 80048

== ENCOUNTER 2024-11-09 16:23 | Outpatient (CLI) | payer MEDICARE, SELFPAY ==
--- OUTSIDE RECORDS SUMMARY | 2024-11-09 16:26 | XMS_ITS | Encounter Summary ---
Author Organization [facility] Address [address] [place] [address] Phone Care Team Providers Care Lokie Engineer Name Role Phone Salomón Meehan MD Primary Care Provider [phone] Sheng Castillo MD Unavailable [phone] Kg Syed DPAgusto Unavailable [phone] Jose De La Fuente MD Unavailable Pawel Wheeler MD Unavailable Stacie Lemon MD Unavailable Silvino Malagon MD Primary Care Provider Vickie Stallworth LATIN TEACHER, TELEVISION AND RADIO REPAIRER Unavailable Reason for Visit * Reason Comments Medication Refill Encounter Details Date Type Department Care Team (Late st Contact Info) Description 05/06/2021 [facility]ill [facility] - Family Medicine [facility] [address]2 [place] [address] Salomón Meehan MD [address] [place] [address] Medication Refill Social History Tobacco Use Types Packs/Day Years Used Date Smoking Tobacco: Never Smokeless Tobacco: Never Alcohol Use Standard Drinks/Week Comments Not Currently 0 (1 standard drink = 0.6 oz pur e alcohol) PHQ-2 Answer Date Recorded Total Score - Questions 1-9 0 02/0 09/2021 Sexually Active Control Partners Comments Not [...] COVID-19? No / Unsure 04/09/2021 12:52 PM CUSTOMER EXPERIENCE CONSULTANT documented as of this encounter Miscellaneous Notes * Telephone Encounter - Ilana Funes RN - 05/07/2021 8:02 AM CDT Medication approved and signed per standing order protocol. documented in this encounter Plan of Treatment Upcoming Encounters Date Type Department Care Team (Late st Contact Info) Description 11/23/2024 9:30 AM CDT Office Visit [facility] - Endocrinology - [place] [address] [place] [address] Stacie Lemon MD #[address] [address] 02/11/2025 10:30 AM CUSTOMER EXPERIENCE CONSULTANT [facility] - [place] #[address] [place] [address] Vickie Stallworth APRN, TELEVISION AND RADIO REPAIRER [address] [place] [address] documented as of this encounter Visit Diagnoses Not on filedocumented in this encounter Additional Health Concerns Infection Onset Date Last Indicated Resolved Time COVID - 19 12/27/2021 12/27/2021 12/28/2021 8:17 AM CUSTOMER EXPERIENCE CONSULTANT Respiratory Rule-Out 12/27/2021 12/27/2021 022 12:56 AM CUSTOMER EXPERIENCE CONSULTANT Respiratory Rule Out - RPA 12/28/2021 12/28/2021 1 02/27/2021 10:34 PM CUSTOMER EXPERIENCE CONSULTANT RSV 12/28/2021 12/28/2021 01/25/2022 12:1 6 AM CUSTOMER EXPERIENCE CONSULTANT Respiratory Rule-Out 07/15/2023 07/15/2023 024 1:25 PM CDT Respiratory Rule-Out 08/23/2023 08/23/2023 024 6:42 AM CDT Assessment Noted Time PHQ-9 Depression Total Score: 0 11/17/19 10:00 AM CDT documented as of this encounter Care Teams Lokie Engineer Relationship Specialty Start Date End Date Salomón Meehan MD [address] [place] [address] PCP - General Internal Medicine 10/20/14 11/14/23 Silvino Malagon MD [address] [place] [address] PCP - General Pediatrics 11/29/23 Sheng Castillo MD [address] [place] [address] Ophthalmology 06/28/19 Kg Syed DPM [address] [place] [address] Consulting Physician Podiatry 01/14/21 Jose De La Fuente MD [address] [place] [address] Consulting Physician Cardiovascular Disease - Cardiology 02/23/22 08/08/24 Pawel Wolfe MD [address] [place] [address] Consulting Physician Neurology 11/04/22 Stacie Lemon MD #[address] [address] Consulting Physician Endocrinology 06/16/23 Vickie Stallworth APRN, TELEVISION AND RADIO REPAIRER [address] [place] [address] Nurse Practitioner Advanced Practice Nurse 08/30/24 documented as of this encounter
--- OUTSIDE RECORDS SUMMARY | 2024-11-09 16:26 | XMS_ITS | Encounter Summary ---
Author Organization [facility] Address [address] [place] [address] Phone Care Team Providers Care Distribution Engineer Name Role Phone Salomón Meehan MD Primary Care Provider Sheng Castillo MD Unavailable [phone] Kg Syed DPAgusto Unavailable [phone] Jose De La Fuente MD Unavailable Pawel Wheeler MD Unavailable [phone] Stacie Lemon MD Unavailable Silvino Malagon MD Primary Care Provider Vickie Stallworth ADVERTISING DISPLAY ROTATOR, DIESEL MOTOR MECHANIC Unavailable Reason for Visit * Reason Comments Medication Refill Encounter Details Date Type Department Care Team (Late st Contact Info) Description 11/09/2020 Refill [facility] - Primary Care - [place] [address] [place] [address] Salomón Meehan MD [address] [place] [address] Medication Refill Social History Tobacco [...] Description 11/23/2024 9:30 AM CDT Office Visit [facility] - Endocrinology - [place] #[address] [place] [address] Stacie Lemon MD #[address] [address] 02/11/2025 10:30 AM RESEARCH MANAGEMENT ASSOCIATE Office Visit [facility] - Neurology [facility] [address] [place] [address] Vickie Stallworth APRN, DIESEL MOTOR MECHANIC [address] [place] [address] documented as of this encounter Visit Diagnoses Not on filedocumented in this encounter Additional Health Concerns Infection Onset Date Last Indicated Resolved Time COVID - 19 12/27/2021 12/27/2021 12/28/2021 8:17 AM RESEARCH MANAGEMENT ASSOCIATE Respiratory Rule-Out 12/27/2021 12/27/2021 022 12:56 AM RESEARCH MANAGEMENT ASSOCIATE Respiratory Rule Out - RPA 12/28/2021 12/28/2021 1 02/27/2021 10:34 PM RESEARCH MANAGEMENT ASSOCIATE RSV 12/28/2021 12/28/2021 01/25/2022 12:1 6 AM RESEARCH MANAGEMENT ASSOCIATE Respiratory Rule-Out 07/15/2023 07/15/2023 024 1:25 PM CDT Respiratory Rule-Out 08/23/2023 08/23/2023 024 6:42 AM CDT Assessment Noted Time PHQ-9 Depression Total Score: 0 11/17/19 10:00 AM CDT documented as of this encounter Care Teams Distribution Engineer Relationship Specialty Start Date End Date Salomón Meehan MD [address] [place] [address] PCP - General Internal Medicine 10/20/14 11/14/23 Silvino Malagon MD [address] [place] [address] PCP - General Pediatrics 11/29/23 Sheng Castillo MD [address] [place] [address] Ophthalmology 06/28/19 Kg Syed DPM [address] [place] [address] Consulting Physician Podiatry 01/14/21 Jose De La Fuente MD [address] [place] [address] Consulting Physician Cardiovascular Disease - Cardiology 02/23/22 08/08/24 Pawel Wolfe MD [address] [place] [address] Consulting Physician Neurology 11/04/22 Stacie Lemon MD #[address] [address] Consulting Physician Endocrinology 06/16/23 Vickie Stallworth, ADVERTISING DISPLAY ROTATOR, DIESEL MOTOR MECHANIC [address] [place] [address] Nurse Practitioner Advanced Practice Nurse 08/30/24 documented as of this encounter
--- OUTSIDE RECORDS SUMMARY | 2024-11-09 16:26 | XMS_ITS | Encounter Summary ---
Author Organization [facility] Address [address] [place] [address] Phone Care Team Providers Care Community Affairs Director Name Role Phone Salomón Meehan MD Primary Care Provider Sheng Castillo MD Unavailable [phone] Kg Syed DPAgusto Unavailable [phone] Jose De La Fuente MD Unavailable Pawel Wheeler MD Unavailable [phone] Stacie Lemon MD Unavailable Silvino Malagon MD Primary Care Provider [phone] Vickie Stallworth INSTALLATION TECH, AREA OPERATIONS DIRECTOR Unavailable Reason for Visit * Reason Comments Medication Refill Encounter Details Date Type Department Care Team (Late st Contact Info) Description 07/30/2023 Refill [facility] - Neurology [facility] #[address] [place] [address] Pawel Wolfe MD [address] [place] [address] Medication Refill Social History Tobacco [...] Dept 05/26/23 Office Visit Pawel Wolfe MD [facility] Neurology [place] 04/21/23 Office Visit Hazel Acuña APRN, WEASAND TRIMMER [facility] 02/08/23 Office Visit Salomón Meehan MD [facility] 11/04/22 Office Visit Pawel Wolfe MD [facility] Neurology [place] Showing recent visits within past 365 days and meeting all other requirements Future Appointments Date Type Provider Dept 08/15/23 Appointment Salomón Meehan MD [facility] 08/25/23 Appointment Pawel Wolfe MD [facility] Neurology [facility] [place] Showing future appointments within next 90 days and meeting all other requirements documented in this encounter Plan of Treatment Upcoming Encounters Date Type Department Care Team (Late st Contact Info) Description 11/23/2024 9:30 AM CDT Office Visit [facility] - Endocrinology - [place] [address] [place] [address] Stacie Lemon MD #[address] [address] 02/11/2025 10:30 AM DIRECTOR MOBILE [facility] - [place] [address] [place] [address] Vickie Stallworth, INSTALLATION TECH, AREA OPERATIONS DIRECTOR [address] [place] [address] documented as of this encounter Visit Diagnoses Not on filedocumented in this encounter Additional Health Concerns Infection Onset Date Last Indicated Resolved Time Respiratory Rule-Out 08/23/2023 08/23/2023 024 6:42 AM CDT Assessment Noted Time PHQ-9 Depression Total Score: 0 02/08/19 10:13 AM DIRECTOR MOBILE documented as of this encounter Care Teams Community Affairs Director Relationship Specialty Start Date End Date Salomón Meehan MD [address] [place] [address] PCP - General Internal Medicine 10/20/14 11/14/23 Silvino Malagon MD [address] [place] [address] PCP - General Pediatrics 11/29/23 Sheng Castillo MD [address] [place] [address] Ophthalmology 06/28/19 Kg Syed DPM [address] [place] [address] Consulting Physician Podiatry 01/14/21 Jose De La Fuente MD [address] [place] [address] Consulting Physician Cardiovascular Disease - Cardiology 02/23/22 08/08/24 Pawel Wolfe MD [address] [place] [address] Consulting Physician Neurology 11/04/22 Stacie Lemon MD #[address] [phone] Consulting Physician Endocrinology 06/16/23 Vickie Stallworth, INSTALLATION TECH, AREA OPERATIONS DIRECTOR [address] [place] [address] Nurse Practitioner Advanced Practice Nurse 08/30/24 documented as of this encounter
--- OUTSIDE RECORDS SUMMARY | 2024-11-09 16:26 | XMS_ITS | Clinical Summary ---
Author Organization [facility] [address] Address [address] [place] [address] Care Team Providers Care Order Entry Representative Name Role Phone Silvino Malagon MD Primary [...] 1 tablet (81 mg total) by mouth court commissioner before breakfast Active cholecalciferol (VITAMIN D-3) 1,000 [...] History Date Comments Hypertension Osteoporosis Diabetes mellitus Osteoarthritis Asthma Family History Medical History Relation [...] on file Legal Sex Female 9:24 AM SNAKER TRACTOR DRIVER Gender Identity Not on file Sexual Orientation [...] Comments Blood Pressure 104/58 12/20/2023 9:27 AM SNAKER TRACTOR DRIVER Pulse 65 12/20/2023 9:27 AM SNAKER TRACTOR DRIVER Temperature - - Respiratory Rate - - Oxygen Saturation 96% 12/20/2023 9:27 AM SNAKER TRACTOR DRIVER Inhaled Oxygen Concentration - - Weight 83.9 kg (185 lb) 12/20/2023 9:27 AM SNAKER TRACTOR DRIVER Height 162.6 cm (5' 4) 12/20/2023 9:27 AM SNAKER TRACTOR DRIVER Body Mass Index 31.76 12/20/2023 9:27 AM SNAKER TRACTOR DRIVER Plan of Treatment Health Maintenance Due Date Last Done Comments Albumin Creatinine Ratio, Urine 1939 Depression Screening 1939 Fall Risk Assessment 1939 Hemoglobin A1C 1939 eGFR 1939 Dilated Eye Exam 1939 Foot Exam 1939 DTaP/Tdap/Td Vaccine (1 - Tdap) 1950 Hepatitis B Screening 1957 Well Visit 65+ 01/17/2019 01/17/2018 Osteoporosis Screening-Bone Density Scan 04/10/2023 04/09/2021, 04/09/2021 Lipid Panel 08/14/2024 08/15/2023, 03/2023, 10/20/2017 Covid-19 Vaccine (2024-2 6 season) 2024 12/17/2021, 08/12/2021, 08/12/2021, Additional history exists Influenza Vaccine (#1) 2024 3, 11/04/2021, 11/14/2020, Additional history exists Pneumococcal vaccine 65+ Completed 016, 12/04/2009, 11/14/2009 [...] Most Recently Relevant to Health Maintenance Insurance [facility] Care Teams Order Entry Representative Relationship Specialty Start Date End Date Silvino Malagon MD [address] [place] [address] PCP - General Family Medicine 12/20/23
--- OUTSIDE RECORDS SUMMARY | 2024-11-09 16:26 | XMS_ITS | Encounter Summary ---
Author Organization [facility] Address [address] [address] Phone Care Team Providers Care Shuttle Fitting Supervisor Name Role Phone Sheng Castillo MD Unavailable [phone] Kg Syed DPM Unavailable [phone] Pawel Wolfe MD Unavailable [phone] Stacie Lemon MD Unavailable Silvino Malagon MD Primary Care Provider [phone] Vickie Stallworth APRN, CARPENTER ASSISTANT Unavailable Reason for Visit * Reason Comments Medication Refill Encounter Details Date Type Department Care Team (Late st Contact Info) Description 10/30/2024 Refill [facility] - Neurology [facility] #[address] [place] [address] Pawel Wolfe MD [address] [place] [address] Medication Refill Social History Tobacco [...] Description 11/23/2024 9:30 AM CDT Office Visit [facility] - Endocrinology - [place] [address] [place] [address] Stacie Lemon MD #[address] [address] 02/11/2025 10:30 AM SCREENPLAY WRITER Office Visit [facility] - Neurology - [place] [address] [place] [address] Vickie Stallworth APRN, CARPENTER ASSISTANT [address] [place] [address] documented as of this encounter Visit Diagnoses Not on filedocumented in this encounter Additional Health Concerns Assessment Noted Time PHQ-9 Depression Total Score: 0 02/08/19 24 10:13 AM SCREENPLAY WRITER documented as of this encounter Care Teams Shuttle Fitting Supervisor Relationship Specialty Start Date End Date Silvino Malagon MD [address] [place] [address] PCP - General Pediatrics 11/29/23 Sheng Castillo MD [address] [place] [address] Ophthalmology 06/28/19 Kg Syed DPM [address] [place] [address] Consulting Physician Podiatry 01/14/21 Pawel Wolfe MD [address] [place] [address] Consulting Physician Neurology 11/04/22 Stacie Lemon MD #[address] [address] Consulting Physician Endocrinology 06/16/23 Vickie Stallworth, RESEARCH CHEMICAL ENGINEER, CARPENTER ASSISTANT [address] [place] [address] Nurse Practitioner Advanced Practice Nurse 08/30/24 documented as of this encounter
--- OUTSIDE RECORDS SUMMARY | 2024-11-09 16:26 | XMS_ITS | Encounter Summary ---
Author Organization [facility] Address [address] [place] [address] Phone Care Team Providers Care Cath Laboratory Technician Name Role Phone Salomón Meehan MD Primary Care Provider Sheng Castillo MD Unavailable [phone] Kg Syed DPAgusto Unavailable [phone] Jose De La Fuente MD Unavailable Pawel Wheeler MD Unavailable [phone] Stacie Lemon MD Unavailable Silvino Malagon MD Primary Care Provider Vickie Stallworth LAWN CARE WORKER, CLEARING INSPECTOR Unavailable Reason for Visit * Reason Comments Medication Refill Encounter Details Date Type Department Care Team (Late st Contact Info) Description 07/18/2023 Refill [facility] - Primary Care - [place] [address] [place] [address] Salomón Meehan MD [address] [place] [address] Medication Refill Social History Tobacco [...] discontinued on 04/21/2023 by Hazel Acuña APRN, WIRE MILL ROVER for the following reason: Reorder. documented in this encounter Plan of Treatment Upcoming Encounters Date Type Department Care Team (Late st Contact Info) Description 11/23/2024 9:30 AM CDT Office Visit [facility] - Endocrinology - [place] [address]2 [place] [address] Stacie Lemon MD #[address] [address] 02/11/2025 10:30 AM CLIENT EXPERIENCE CONSULTANT Office Visit [facility] - Neurology - [place] [address] [place] [address] Vickie Stallworth APRN, CLEARING INSPECTOR [address] [place] [address] documented as of this encounter Visit Diagnoses Diagnosis Elevated brain natriuretic peptide (BNP) level Other nonspecific findings on examination of blood documented in this encounter Additional Health Concerns Infection Onset Date Last Indicated Resolved Time Respiratory Rule-Out 07/15/2023 07/15/2023 024 1:25 PM CDT Respiratory Rule-Out 08/23/2023 08/23/2023 024 6:42 AM CDT Assessment Noted Time PHQ-9 Depression Total Score: 0 02/08/19 10:13 AM CLIENT EXPERIENCE CONSULTANT documented as of this encounter Care Teams Cath Laboratory Technician Relationship Specialty Start Date End Date Salomón Meehan MD [address] [place] [address] PCP - General Internal Medicine 10/20/14 11/14/23 Silvino Malagon MD [address] [place] [address] PCP - General Pediatrics 11/29/23 Sheng Castillo MD [address] [place] [address] Ophthalmology 06/28/19 Kg Syed DPM [address] [place] [address] Consulting Physician Podiatry 01/14/21 Jose De La Fuente MD [address] [place] [address] Consulting Physician Cardiovascular Disease - Cardiology 02/23/22 08/08/24 Pawel Wolfe MD [address] [place] [address] Consulting Physician Neurology 11/04/22 Stacie Lemon MD #[address] [phone] Consulting Physician Endocrinology 06/16/23 Vickie Stallworth, LAWN CARE WORKER, CLEARING INSPECTOR [address] [place] [address] Nurse Practitioner Advanced Practice Nurse 08/30/24 documented as of this encounter
--- OUTSIDE RECORDS SUMMARY | 2024-11-09 16:26 | XMS_ITS | Encounter Summary ---
Author Organization [facility] Address [address] [place] [address] Phone Care Team Providers Care Aws Architect Name Role Phone Salomón Meehan MD Primary Care Provider [phone] Sheng Castillo MD Unavailable [phone] Kg Syed DPM Unavailable Jose De La Fuente MD Unavailable Pawel Wheeler MD Unavailable Stacie Lemon MD Unavailable Silvino Malagon MD Primary Care Provider Vickie Stallworth LAUNDRY TUB MAKER, TIRE CURER Unavailable Encounter Details Date Type Department Care Team (Late st Contact Info) Description 01/18/2022 Lab Requisition [facility] [address] [place] [address] Salomón Meehan MD [address] [place] [address] Pneumonia, unspecified organism Social History [...] Coronavirus/COVID-19? No / Unsure 01/21/2022 8:44 AM GEOCHEMISTRY TEACHER documented as of this encounter Plan of Treatment Upcoming Encounters Date Type Department Care Team (Late st Contact Info) Description 11/23/2024 9:30 AM CDT Office Visit [facility] Medical [facility] - Endocrinology - [place] [address] [place] [address] Stacie Lemon MD #[address] [address] 02/11/2025 10:30 AM GEOCHEMISTRY TEACHER Office Visit [facility] - Neurology - [place] [address] [place] [address] Vickie Stallworth APRN, TIRE CURER [address] [place] [address] documented as of this encounter Procedures Procedure Name Priority Date/Time Associated Diagnosis Comments CBC WITH AUTO DIFFERENTIAL Routine 01/18/2022 10:09 AM GEOCHEMISTRY TEACHER Pneumonia, unspecified organism COMPLETE BLOOD COUNT (CBC) WITH DIFF Routine 01/18/2022 10:09 AM GEOCHEMISTRY TEACHER Pneumonia, unspecified organism BASIC METABOLIC PANEL W/ CALCIUM TOTAL Routine 01/18/2022 10:09 AM GEOCHEMISTRY TEACHER Pneumonia, unspecified organism documented in this encounter Results * (ABNORMAL) CBC WITH AUTO DIFFERENTIAL (01/18/2022 10:09 AM GEOCHEMISTRY TEACHER) WBC 7.38 4.00 - 12.00 10(3)/mcL 01/18/2022 11:15 AM [facility] RBC 4.40 3.80 - 5.30 10(6)/mcL 01/18/2022 11:15 AM [facility] HEMOGLOBIN (HGB) 12.4 12.0 - 15.8 g/dL 01/18/2022 11:15 AM [facility] HEMATOCRIT (HCT) 40.7 36.0 - 47.0 % 01/18/2022 11:15 AM [facility] MCV 92.5 82.0 - 96.0 fL 01/18/2022 11:15 AM [facility] MCH 28.2 26.0 - 34.0 pg 01/18/2022 11:15 AM [facility] MCHC 30.5(L) 31.0 - 36.0 g/dL 01/18/2022 11:15 AM [facility] PLATELET COUNT 256 140 - 440 10(3)/[facility] 01/18/2022 11:15 AM [facility] RDW 13.9 11.8 - 15.5 % 01/18/2022 11:15 AM [facility] MPV 9.9 9.7 - 12.4 fL 01/18/2022 11:15 AM [facility] NEUTROPHILS 66.1 47.0 - 73.0 % 01/18/2022 11:15 AM [facility] LYMPHOCYTES 24.1 18.0 - 42.0 % 01/18/2022 11:15 AM [facility] MONOCYTES 6.2 4.0 - 12.0 % 01/18/2022 11:15 AM [facility] EOSINOPHILS 2.8 0.0 - 5.0 % 01/18/2022 11:15 AM [facility] BASOPHILS 0.8 0.0 - 1.0 % 01/18/2022 11:15 AM [facility] ABSOLUTE NEUTROPHILS 4.87 1.60 - 7.70 10(3)/[facility] 01/18/2022 11:15 AM GEOCHEMISTRY TEACHER [facility] ABSOLUTE LYMPHOCYTES 1.78 1.30 - 3.20 10(3)/[facility] 01/18/2022 11:15 AM GEOCHEMISTRY TEACHER [facility] ABSOLUTE MONOCYTES 0.46 0.20 - 1.00 10(3)/[facility] 01/18/2022 11:15 AM GEOCHEMISTRY TEACHER [facility] ABSOLUTE EOSINOPHIL 0.21 0.00 - 0.40 10(3)/[facility] 01/18/2022 11:15 AM [facility] ABSOLUTE BASOPHILS 0.06 0.00 - 0.10 10(3)/[facility] 01/18/2022 11:15 AM [facility] NRBC PER 100 WBC 0 01/19/20 11:15 AM [facility] Blood No Phlebotomy Charged / Unknown 01/18/2022 10:09 AM GEOCHEMISTRY TEACHER 01/18/2022 11:12 AM GEOCHEMISTRY TEACHER us Salomón Meehan MD HEMATOLOGY ORDERABLES Fin al Result [facility] [address] [place] [address] * (ABNORMAL) BASIC METABOLIC PANEL W/ CALCIUM TOTAL (01/18/2022 10:09 AM GEOCHEMISTRY TEACHER) SODIUM 136 136 - 144 mmol/L 01/18/2022 11:33 AM [facility] POTASSIUM 5.5(H) 3.5 - 5.1 mmol/L 01/18/2022 11:33 AM [facility] CHLORIDE 99(L) 100 - 110 mmol/L 01/18/2022 11:33 AM [facility] CO2, VENOUS 27 22 - 32 mmol/L 01/18/2022 11:33 AM [facility] ANION GAP 15.5 8.0 - 20.0 mmol/L 01/18/2022 11:33 AM [facility] GLUCOSE 234(H) 70 - 99 mg/dL 01/18/2022 11:33 AM GEOCHEMISTRY TEACHER [facility] BUN 20 8 - 23 mg/dL 01/18/2022 11:33 AM GEOCHEMISTRY TEACHER [facility] CREATININE, BLOOD 1.53(H) 0.60 - 1.10 mg/dL 01/18/2022 11:33 AM GEOCHEMISTRY TEACHER [facility] BUN/CREATININE RATIO 13 12 - 20 ratio 01/18/2022 11:33 AM [facility] CALCIUM 10.3 8.9 - 10.3 mg/dL 01/18/2022 11:33 AM GEOCHEMISTRY TEACHER [facility] GFR, ESTIMATED 34(L) >=60 01/18/2022 11:33 AM [facility] Comment: Creatinine Clearance is the preferred criteria for selecting drug dose adjustments in renally impaired patients. The GFR is provided as additional pertinent clinical information. GFR is reported in mL/min/1.73 sq m. Calculation based on the Chronic Kidney Disease Epidemiology Collaboration (CKD- EPI) equation refit without adjustment for race. GFR, EST. 39(L) >=60 022 11:33 AM [facility] GFR, EST. NONAFRICAN 32(L) >=60 01/18/2022 11:33 AM [facility] Blood No Phlebotomy Charged / Unknown 01/18/2022 10:09 AM GEOCHEMISTRY TEACHER 01/18/2022 11:12 AM GEOCHEMISTRY TEACHER us Salomón Meehan MD CHEMISTRY ORDERABLES Arianne ortiz Result [facility] [address] [place] [address] documented in this encounter Visit Diagnoses Diagnosis Pneumonia, unspecified organism documented in this encounter Additional Health Concerns Infection Onset Date Last Indicated Resolved Time RSV 12/28/2021 12/28/2021 01/25/2022 12:1 6 AM GEOCHEMISTRY TEACHER Respiratory Rule-Out 07/15/2023 07/15/2023 024 1:25 PM CDT Respiratory Rule-Out 08/23/2023 08/23/2023 024 6:42 AM CDT Assessment Noted Time PHQ-9 Depression Total Score: 0 11/17/19 19 10:00 AM CDT documented as of this encounter Care Teams Aws Architect Relationship Specialty Start Date End Date Salomón Meehan MD [address] [place] [address] PCP - General Internal Medicine 10/20/14 11/14/23 Silvino Malagon MD [address] [place] [address] PCP - General Pediatrics 11/29/23 Sheng Castillo MD [address] [place] [address] Ophthalmology 06/28/19 Kg Syed DPM [address] [place] [address] Consulting Physician Podiatry 01/14/21 Jose De La Fuente MD [address] [place] [address] Consulting Physician Cardiovascular Disease - Cardiology 02/23/22 08/08/24 Pawel Wolfe MD #[address] [place] [address] Consulting Physician Neurology 11/04/22 Stacie Lemon MD #[address] [phone] Consulting Physician Endocrinology 06/16/23 Vickie Stallworth, LAUNDRY TUB MAKER, TIRE CURER [address] [place] [address] Nurse Practitioner Advanced Practice Nurse 08/30/24 documented as of this encounter
--- OUTSIDE RECORDS SUMMARY | 2024-11-09 16:26 | XMS_ITS | Encounter Summary ---
Author Organization [facility] Address [address] [place] [address] Phone Care Team Providers Care Dry Kiln Loader Name Role Phone Salomón Meehan MD Primary Care Provider Sheng Castillo MD Unavailable [phone] Kg Syed DPAgusto Unavailable [phone] Jose De La Fuente MD Unavailable Pawel Wheeler MD Unavailable [phone] Stacie Lemon MD Unavailable Silvino Malagon MD Primary Care Provider Vickie Stallworth SUPERVISOR TYPE PHOTOGRAPHY, MOLDER CLOSED MOLDS Unavailable Reason for Visit * Reason Comments Medication Refill Encounter Details Date Type Department Care Team (Late st Contact Info) Description 08/05/2021 Refill [facility] - Primary Care - [place] [address] [place] [address] Salomón Meehan MD [address] [place] [address] Medication Refill Social History Tobacco [...] Description 11/23/2024 9:30 AM CDT Office Visit [facility] - Endocrinology - [place] [address] [place] [address] Stacie Lemon MD #[address] [address] 02/11/2025 10:30 AM JACK OF ALL TRADES Office Visit [facility] - Neurology - [place] [address] [place] [address] Vickie Stallworth APRN, MOLDER CLOSED MOLDS [address] [place] [address] documented as of this encounter Visit Diagnoses Not on filedocumented in this encounter Additional Health Concerns Infection Onset Date Last Indicated Resolved Time COVID - 19 12/27/2021 12/27/2021 12/28/2021 8:17 AM JACK OF ALL TRADES Respiratory Rule-Out 12/27/2021 12/27/2021 022 12:56 AM JACK OF ALL TRADES Respiratory Rule Out - RPA 12/28/2021 12/28/2021 1 02/27/2021 10:34 PM JACK OF ALL TRADES RSV 12/28/2021 12/28/2021 01/25/2022 12:1 6 AM JACK OF ALL TRADES Respiratory Rule-Out 07/15/2023 07/15/2023 024 1:25 PM CDT Respiratory Rule-Out 08/23/2023 08/23/2023 024 6:42 AM CDT Assessment Noted Time PHQ-9 Depression Total Score: 0 11/17/19 10:00 AM CDT documented as of this encounter Care Teams Dry Kiln Loader Relationship Specialty Start Date End Date Salomón Meehan MD [address] [place] [address] PCP - General Internal Medicine 10/20/14 11/14/23 Silvino Malagon MD [address] [place] [address] PCP - General Pediatrics 11/29/23 Sheng Castillo MD [address] [place] [address] Ophthalmology 06/28/19 Kg Syed DPM [address] [place] [address] Consulting Physician Podiatry 01/14/21 Jose De La Fuente MD [address] [place] [address] Consulting Physician Cardiovascular Disease - Cardiology 02/23/22 08/08/24 Pawel Wolfe MD [address] [place] [address] Consulting Physician Neurology 11/04/22 Stacie Lemon MD #[address] [address] Consulting Physician Endocrinology 06/16/23 Vickie Stallworth, SUPERVISOR TYPE PHOTOGRAPHY, MOLDER CLOSED MOLDS [address] [place] [address] Nurse Practitioner Advanced Practice Nurse 08/30/24 documented as of this encounter
--- OUTSIDE RECORDS SUMMARY | 2024-11-09 16:26 | XMS_ITS | Encounter Summary ---
Author Organization [facility] Address [address] [place] [address] Phone Care Team Providers Care Torch Shearer Name Role Phone Salomón Meehan MD Primary Care Provider [phone] Sheng Castillo MD Unavailable [phone] Kg Syed DPM Unavailable [phone] Jose De La Fuente MD Unavailable Pawel Wheeler MD Unavailable [phone] Stacie Lemon MD Unavailable Silvino Malagon MD Primary Care Provider Vickie Stallworth ROUGHING MILL OPERATOR, POULTRY PROCESS WORKER Unavailable Reason for Visit * Reason Comments Medication Refill Encounter Details Date Type Department Care Team (Late st Contact Info) Description 06/02/2020 Refill [facility] [address] [place], [place] [id number] Salomón Meehan MD [address] [place] [address] Medication Refill Social History Tobacco [...] Description 11/23/2024 9:30 AM CDT Office Visit [facility] Medical [facility] - Endocrinology - [place] [address] [place] [address] Stacie Lemon MD #[address] [address] 02/11/2025 10:30 AM BLOCK TESTER [facility] - [place] [address] [place] [address] Vickie Stallworth APRN, POULTRY PROCESS WORKER [address] [place] [address] documented as of this encounter Visit Diagnoses Not on filedocumented in this encounter Additional Health Concerns Infection Onset Date Last Indicated Resolved Time COVID - 19 12/27/2021 12/27/2021 12/28/2021 8:17 AM BLOCK TESTER Respiratory Rule-Out 12/27/2021 12/27/2021 022 12:56 AM BLOCK TESTER Respiratory Rule Out - RPA 12/28/2021 12/28/2021 1 02/27/2021 10:34 PM BLOCK TESTER RSV 12/28/2021 12/28/2021 01/25/2022 12:1 6 AM BLOCK TESTER Respiratory Rule-Out 07/15/2023 07/15/2023 024 1:25 PM CDT Respiratory Rule-Out 08/23/2023 08/23/2023 024 6:42 AM CDT Assessment Noted Time PHQ-9 Depression Total Score: 0 11/17/19 19 10:00 AM CDT documented as of this encounter Care Teams Torch Shearer Relationship Specialty Start Date End Date Salomón Meehan MD [address] [place] [address] PCP - General Internal Medicine 10/20/14 11/14/23 Silvino Malagon MD [address] [place] [address] PCP - General Pediatrics 11/29/23 Sheng Castillo MD [address] [place] [address] Ophthalmology 06/28/19 Kg Syed DPM [address] [place] [address] Consulting Physician Podiatry 01/14/21 Jose De La Fuente MD [address] [place] [address] Consulting Physician Cardiovascular Disease - Cardiology 02/23/22 08/08/24 Pawel Wolfe MD [address] [place] [address] Consulting Physician Neurology 11/04/22 Stacie Lemon MD #[address] [phone] Consulting Physician Endocrinology 06/16/23 Vickie Stallworth, ROUGHING MILL OPERATOR, POULTRY PROCESS WORKER [address] [place] [address] Nurse Practitioner Advanced Practice Nurse 08/30/24 documented as of this encounter
--- OUTSIDE RECORDS SUMMARY | 2024-11-09 16:26 | XMS_ITS | Encounter Summary ---
Author Organization [facility] Address [address] [place] [address] Phone Care Team Providers Care Aquatic Instructor Name Role Phone Salomón Meehan MD Primary Care Provider [phone] Sheng Castillo MD Unavailable [phone] Kg Syed DPM Unavailable [phone] Jose De La Fuente MD Unavailable Pawel Wheeler MD Unavailable Stacie Lemon MD Unavailable Silvino Malagon MD Primary Care Provider Vickie Stallworth LVN, CHIEF STEWARD/STEWARDESS Unavailable Reason for Visit * Reason Comments Medication Refill Encounter Details Date Type Department Care Team (Late st Contact Info) Description 10/06/2020 Refill [facility] [address] [place], [place] [phone] Salomón Meehan MD [address] [place] [address] Medication Refill Social History Tobacco [...] Description 11/23/2024 9:30 AM CDT Office Visit [facility] Medical [facility] - Endocrinology - [place] [address] [place] [address] Stacie Lemon MD #[address] [address] 02/11/2025 10:30 AM IC ENGINEER Office Visit [facility] - Neurology - [place] [address] [place] [address] Vickie Stallworth, LVN, CHIEF STEWARD/STEWARDESS [address] [place] [address] documented as of this encounter Visit Diagnoses Not on filedocumented in this encounter Additional Health Concerns Infection Onset Date Last Indicated Resolved Time COVID - 19 12/27/2021 12/27/2021 12/28/2021 8:17 AM IC ENGINEER Respiratory Rule-Out 12/27/2021 12/27/2021 022 12:56 AM IC ENGINEER Respiratory Rule Out - RPA 12/28/2021 12/28/2021 1 02/27/2021 10:34 PM IC ENGINEER RSV 12/28/2021 12/28/2021 01/25/2022 12:1 6 AM IC ENGINEER Respiratory Rule-Out 07/15/2023 07/15/2023 024 1:25 PM CDT Respiratory Rule-Out 08/23/2023 08/23/2023 024 6:42 AM CDT Assessment Noted Time PHQ-9 Depression Total Score: 0 11/17/19 19 10:00 AM CDT documented as of this encounter Care Teams Aquatic Instructor Relationship Specialty Start Date End Date Salomón Meehan MD [address] [place] [address] PCP - General Internal Medicine 10/20/14 11/14/23 Silvino Malagon MD [address] [place] [address] PCP - General Pediatrics 11/29/23 Sheng Castillo MD [address] [place] [address] Ophthalmology 06/28/19 Kg Syed DPM [address] [place] [address] Consulting Physician Podiatry 01/14/21 Jose De La Fuente MD [address] [place] [address] Consulting Physician Cardiovascular Disease - Cardiology 02/23/22 08/08/24 Pawel Wolfe MD [address] [place] [address] Consulting Physician Neurology 11/04/22 Stacie Lemon MD #[address] [address] Consulting Physician Endocrinology 06/16/23 Vickie Stallworth, LVN, CHIEF STEWARD/STEWARDESS [address] [place] [address] Nurse Practitioner Advanced Practice Nurse 08/30/24 documented as of this encounter
--- OUTSIDE RECORDS SUMMARY | 2024-11-09 16:26 | XMS_ITS | Clinical Summary ---
Author Organization [facility] Address [address] [place] [address] Phone Care Team Providers Care Power Generating Plant Operator Name Role Phone Sheng Castillo MD Unavailable [phone] Kg Syed DPM Unavailable Pawel Wolfe MD Unavailable [phone] Stacie Lemon MD Unavailable Silvino Malagon MD Primary Care Provider Vickie Stallworth APRN, HOSPICE CARE CONSULTANT Unavailable [phone] Allergies Active Allergy Reactions Criticality Noted Date [...] unspecified HF chronicity, unspecified heart failure type Take 1 Tablet by mouth 2 times daily. 180 Tablet 4 10/01/19 23 Active montelukast (SINGULAIR) 10 MG Tablet Take 1 Tablet by mouth every morning. 90 Tablet 3 02/08/19 24 Active spironolactone (ALDACTONE) 25 MG TabletIndication s:Elevated brain natriuretic peptide (BNP) level TAKE 1 TABLET BY MOUTH EVERY DAY 90 Tablet 1 03/07/19 24 Active venlafaxine (EFFEXOR-XR) 75 MG CAPSULE [...] NIGHT 90 Capsule 1 05/18/19 24 Active B-D ULTRAFINE III SHORT PEN 31G X 8 MM MiscIndications: Type 2 diabetes mellitus with diabetic neuropathy, unspecified USE TO INJECT INSULIN FOUR TIMES DAILY 400 Pen Needle 1 08/08/19 24 Active levothyroxine (SYNTHROID) 75 MCG Tablet TAKE 1 TABLET BY MOUTH EVERY DAY 90 Tablet 1 09/19/19 24 Active metoprolol tartrate (LOPRESSOR) 25 MG Tablet Take 25 mg by mouth 2 times daily. Active Lancets ([place] Delica Plus [id number]) MiscIndications: Type 2 diabetes mellitus without complication, with long-term current use of insulin TEST TWICE A DAY E11.9, insulin dependent 200 Each 3 05/16/19 25 Active Blood Glucose Monitoring Suppl ([place] Verio Reflect) w/Device Kit Check blood glucose at breakfast and dinner 1 Kit 05/29/19 25 Active atorvastatin (LIPITOR) 80 MG Tablet TAKE 1 TABLET BY MOUTH NIGHTLY 90 Tablet 3 07/07/19 25 Active furosemide (LASIX) 20 MG Tablet Take 20 mg by mouth daily. Active Glucose Blood ([place] Verio) StripIndications :Type 2 diabetes mellitus without complication, with long-term current use of insulin TEST 3 TIMES A DAY, E11.9, Insulin dependent 200 Strip 3 09/04/19 25 Active insulin lispro prot & lispro (HUMALOG) (75-25) 100 UNIT/ML Suspension Pen-injector 50 units at breakfast and 18 units at dinner 60 mL 1 09/08/19 25 Active glucose blood (Contour Plus Test) Strip Check blood glucose 3x daily, E11.42, insulin dependent 300 Strip 3 10/27/19 25 Active Blood Glucose Monitoring Suppl (Contour Plus Blue) w/Device Kit 1 Kit by Does not apply route 3 times daily. Check blood glucose 3x daily, E11.42, insulin dependent 1 Kit 10/27/19 25 Active levETIRAcetam (Keppra) 750 MG TabletIndication s:Focal seizure Take 1 Tablet by mouth 2 times daily. 60 Tablet 1 11/01/19 25 Active Empagliflozin (JARDIANCE PO) Take by mouth. 025 Discontin ued(Med List Clean Up) levETIRAcetam (Keppra) 750 MG TabletIndication s:Focal seizure Take 1 Tablet by mouth 2 times daily. 60 Tablet 1 05/01/19 25 025 Discontin ued(Reord er) Active Problems Problem Noted Date Diagnosed Date [...] Encounters Date Type Department Care Team Description 10/31/2024 Refill [facility] - [facility] - [place] [address] [place] [address] Vickie Stallworth APRN, HOSPICE CARE CONSULTANT Medication Refill 10/30/2024 8:30 AM CDT [facility] [place] [address] [place] [address] Vickie Stallworth APRN, HOSPICE CARE CONSULTANT Witnessed seizure-like activity (HCC) (Primary Dx); History of ischemic stroke; Paroxysmal A-fib (HCC) Discharge Disposition: Discharged to home or Selfcare 10/30/2024 [facility] [place] [address] [place] [address] Pawel Wolfe MD Medication Refill 10/30/2024 Travel 10/26/2024 Refill [facility] - [place] [address] [place] [address] Pawel Wolfe MD Medication Refill 10/26/20[address] [facility] [facility] [place] [address] [place] [address] Stacie Lemon MD 10/19/2024 Telephone [facility] [place] [address] [place] [address] Stacie Lemon MD Medication Management 10/13/2024 Refill [facility] - [place] [address] [place] [address] Pawel Wolfe MD Medication Refill 09/27/2024 Telephone [facility] [place] [address] [place] [address] Stacie Lemon MD Medication Management 09/07/2024 Telephone [facility] - [place] [address] [place] [address] Stacie Lemon MD Medication Management 09/05/2024 [facility] [place] [address] [place] [address] Stacie Lemon MD Medication Refill 08/31/2024 Refill [facility] [address] [place] [address] Stacie Lemon MD Medication Refill 08/30/2024 10:26 AM CDT - 08/30/2024 1:37 PM CDT Emergency [facility] Emergency [address] [place] [address] Eileen Spencer MD Seizure Discharge Disposition: Discharged to home or Selfcare 08/30/2024 10:00 AM CDT Office Visit [facility] Neurology - [place] [address] [place] [address] Vickie Stallworth, FACTORY FOCUS TECHNICIAN, HOSPICE CARE CONSULTANT Witnessed seizure-like activity (HCC) (Primary Dx); Type 2 diabetes mellitus without complication, with long-term current use of insulin Discharge Disposition: Discharged to home or Selfcare 08/30/2024 Refill [facility] [address] [place] [address] Salomón Meehan MD Medication Refill 08/30/2024 Travel 08/22/2024 9:30 AM CDT Office Visit [facility] - [place] [address] [place] [address] Stacie Lemon MD Type 2 diabetes mellitus with diabetic polyneuropathy, with long-term current use of insulin (HCC) (Primary Dx); Insulin dose changed (HCC); Hypoglycemia; Class 1 obesity due to excess calories with serious comorbidity and body mass index (BMI) of 32.0 to 32.9 in adult Discharge Disposition: Discharged to home or Selfcare 08/22/2024 Travel 08/21/2024 [facility] [place] [phone] Salomón Meehan MD Medication Refill from Last [...] Valent 0 Pneumococcal conjugate PCV20 , polysaccharide [id number] conjugate, adjuvant, PF 01/11/2024 RSV, Bivalent, Protein [...] Sign Reading Time Taken Comments Blood Pressure 126/78 10/30/2024 8:17 AM CDT Pulse 70 10/30/2024 8:17 AM CDT Temperature 36.6 C (97.8 F) 10/30/2024 8:17 AM CDT Respiratory Rate 16 10/30/2024 8:17 AM CDT Oxygen Saturation 96% 10/30/2024 8:17 AM CDT Inhaled Oxygen Concentration - - Weight 92.4 kg (203 lb 11.2 oz) 10/30/2024 8:17 AM CDT Height 167.6 cm (5' 6) 10/30/2024 8:17 AM CDT Body Mass Index 32.88 10/30/2024 8:17 AM CDT Plan of Treatment Upcoming Encounters Date Type Department Care Team (Late st Contact Info) Description 11/23/2024 9:30 AM CDT Office Visit [facility] - Endocrinology - [place] [address] [place] [address] Stacie Lemon MD [address] [address] 02/11/2025 10:30 AM INSTRUCTIONAL MATERIALS DIRECTOR [facility] [place] [address] [place] [phone] Vickie Stallworth APRN, HOSPICE CARE CONSULTANT [address] [place] [address] Health Maintenance Due Date Last Done Comments Medicare Subsequent AWV [id number] 02/22/2020 Diabetes: Eye Exam 01/14/2023 01/14/2022 DEXA Bone Density 04/10/2023 04/09/2021, 07/26/2012 Influenza Immunization (#1) 2024 10/0 10/2023, 12/27/2022, 11/04/2021, Additional history exists Diabetes: Hemoglobin A1c 02/22/2025 025, 05/28/2024, 02/20/2024, Additional history exists SARS-COV-2 Immunization () 04/27/2025 10/28/2024, 01/11/2024, 12/17/2021, Additional history exists Diabetes: Foot Exam 05/28/2025 05/28/2024 Diabetes: Nephropathy Screening 08/30/2025 08/30/2024, 09/10/2023, 08/23/2023, Additional history exists Zoster Immunization Completed 06/23/2018, 01/18/2018, 04/16/2016 Hepatitis C Virus (HCV) Screening Completed 02/08/2023 TdaP Immunization Completed 02/12/2023 Pneumococcal Immunization (50+ years) Completed 01/11/2024, 07/17/2015, 12/04/2009, Additional history exists Pneumococcal Immunization Combined Discontinued 01/11/2024, 07/17/2015, 12/04/2009, Additional history exists Respiratory Syncytial Virus (RSV) Immunization (Adult) Completed [...] Name Priority Date/Time Associated Diagnosis Comments POCT GLUCOSE STAT 08/30/2024 1:10 PM CDT URINALYSIS REFLEX IF INDICATED BY ABNORMAL RESULTS STAT 08/30/2024 11:42 AM CDT CULTURE, URINE STAT 08/30/2024 11:42 AM CDT GOLD TOP TUBE STAT 08/30/2024 10:46 AM CDT BLUE TOP TUBE STAT 08/30/2024 10:46 AM CDT CBC WITH AUTO DIFFERENTIAL STAT 08/30/2024 10:46 AM CDT EXTRA TUBES STAT 08/30/2024 10:46 AM CDT LEVETIRACETAM STAT 08/30/2024 10:46 AM CDT CMP (COMPREHENSIVE METABOLIC PANEL) STAT 08/30/2024 10:46 AM CDT COMPLETE BLOOD COUNT (CBC) WITH DIFF STAT 08/30/2024 10:46 AM CDT POCT GLUCOSE STAT 08/30/2024 10:35 AM CDT EKG 12 LEAD STAT 08/30/2024 10:31 AM CDT EKG SCAN 08/30/2024 12:00 AM CDT POCT GLYCOSYLATED HEMOGLOBIN Routine 08/22/2024 9:19 AM CDT Type 2 diabetes mellitus with diabetic polyneuropathy, with long-term current use of insulin (HCC) HEPATITIS C ANTIBODY Routine 02/08/2023 10:45 AM INSTRUCTIONAL MATERIALS DIRECTOR Encounter for hepatitis C screening test for low risk patient [facility] DILATED EYE EXAM 01/14/2022 1 2:00 AM INSTRUCTIONAL MATERIALS DIRECTOR ERIN BONE DENSITOMETRY AXIAL SKELETON Routine 04/09/2021 1:42 PM INSTRUCTIONAL MATERIALS DIRECTOR Menopausal and postmenopausal disorder Encounter for screening for osteoporosis from Last 3 Months or Most Recently Relevant to Health Maintenance Results * (ABNORMAL) POCT Glucose (08/30/2024 1:10 PM CDT) Only the most recent of2 resultswithin the time period is included. Pathologist Hay BANERJEEBEDSID E POCT 318(H) 70 - 99 mg/dL 08/30/2024 1:12 PM CDT [facility] Comment: RN Notified SHANNA TILLMAN Blood 08/30/2024 1:10 PM CDT 08/30/2024 1:12 PM CDT us None Provider POINT OF CARE TESTING Final Resu lt [facility] [address] [place] [address] * (ABNORMAL) URINALYSIS REFLEX IF INDICATED BY ABNORMAL RESULTS (08/30/2024 11:42 AM CDT) Pathologist [facility] SPECIFIC GRAVITY 1.015 1.003 - 1.030 08/30/2024 12:31 PM CDT [facility] URINE PH 6.0 5.0 - 9.0 08/30/2024 12:31 PM CDT [facility] WBC ESTERASE 100 /uL(A) Negative 08/30/2024 12:31 PM CDT [facility] NITRITE Positive(A) Negative 08/30/2024 12:31 PM CDT [facility] PROTEIN, RANDOM URINE 30 mg/dL(A) Negative 08/30/2024 12:31 PM CDT [facility] URINE GLUCOSE, QUAL 1000 mg/dL(A) Negative 08/30/2024 12:31 PM CDT [facility] URINE KETONES Negative Negative 08/30/2024 12:31 PM CDT [facility] UROBILINOGEN Normal Normal mg/dL 08/30/2024 12:31 PM CDT [facility] URINE BLOOD 250 /uL(A) Negative sharee/ul 08/30/2024 12:31 PM CDT [facility] URINALYSIS COLOR Yellow 08/30/2024 12:31 PM CDT [facility] URINALYSIS CLARITY Very Cloudy 08/30/2024 12:31 PM CDT [facility] WBC (Urine) 21-50(A) Negative, 0-5 /hpf 08/30/2024 12:31 PM CDT [facility] URINE RBC'S 51-150(A) Negative, 0-2 /hpf 08/30/2024 12:31 PM CDT [facility] EPITHELIAL CELLS Occasional /lpf 08/30/2024 12:31 PM CDT [facility] BACTERIA, URINE Few(A) Negative /hpf 08/30/2024 12:31 PM CDT [facility] Urine URINE SPECIMEN OBTAINED BY CLEAN CATCH PROCEDURE / Unknown Non-Phlebotomy Collection / Unknown 08/30/2024 11:42 AM CDT 08/30/2024 11:51 AM CDT us Eileen Spencer MD URINE ORDERABLES Final R esult Performing Organization Address City/[facility]/ZIP Co de Phone Number [facility] [address] [place] [address] * Culture, Urine (08/30/2024 11:42 AM CDT) CULTURE RESULTS PSEUDOMONAS AERUGINOSA 09/01/2024 9:17 PM CDT [facility] CULTURE RESULTS STAPHYLOCOCCUS SIMULANS 09/01/2024 9:17 PM CDT [facility] Comment:SENSITIVITY NOT PERF ORMED CULTURE RESULTS ALSO MIXED GROWTH OF DISTAL URETHRA CONTAMINANTS. 09/01/2024 9:17 PM CDT [facility] Urine URINE SPECIMEN OBTAINED BY CLEAN CATCH PROCEDURE / Unknown Non-Phlebotomy Collection / Unknown 08/30/2024 11:42 AM CDT 08/30/2024 11:51 AM CDT Narrative Organism Antibiotic Method Susceptibility Pseudomonas aeruginosa Tobramycin PFEIFFER LOBO 21 mm: Susceptible Pseudomonas aeruginosa Piperacillin/Tazobactam MARGARETTE ENRIQUEZ 27 mm: Susceptible Pseudomonas aeruginosa Cefepime ETEST 3 mcg/ml: Susceptible Pseudomonas aeruginosa Levofloxacin ETEST 0.19 mcg/ml: Susceptible Pseudomonas aeruginosa Meropenem ETEST 3 mcg/ml: Intermediate us Eileen Spencer MD MICROBIOLOGY - GENERAL O RDERABLES Final Result Performing Organization Address City/[facility]/ZIP Co de Phone Number [facility] [address] [facility], [address] [place] [address], [place] * (ABNORMAL) LEVETIRACETAM (08/30/2024 10:46 AM CDT) LEVETIRACETAM 56.1(H) 12 - 46 mcg/mL 08/30/2024 9:07 PM CDT [facility] Blood Venipuncture / Unknown 08/30/2024 10:46 AM CDT 08/30/2024 10:59 AM CDT Eileen Spencer MD LAB SEND OUTS Final Re sult [facility] [address] [place] [address], [place] * Gold Top Tube (08/30/2024 10:46 AM CDT) Blood No Phlebotomy Charged / Unknown 08/30/2024 10:46 AM CDT 08/30/2024 11:02 AM CDT Eileen Spencer MD CHEMISTRY ORDERABLES Fin al Result [facility] [address] [place] [address] * Blue Top Tube (08/30/2024 10:46 AM CDT) Blood No Phlebotomy Charged / Unknown 08/30/2024 10:46 AM CDT 08/30/2024 11:02 AM CDT Eileen Spencer MD HEMATOLOGY ORDERABLES Fi nal Result [facility] [address] [place] [address] * (ABNORMAL) CBC with Auto Differential (08/30/2024 10:46 AM CDT) WBC 7.26 4.00 - 12.00 10(3)/mcL 08/30/2024 11:08 AM CDT [facility] RBC 3.88 3.80 - 5.30 10(6)/mcL 08/30/2024 11:08 AM CDT [facility] HEMOGLOBIN (HGB) 12.0 12.0 - 15.8 g/dL 08/30/2024 11:08 AM CDT [facility] HEMATOCRIT (HCT) 36.7 36.0 - 47.0 % 08/30/2024 11:08 AM CDT [facility] MCV 94.6 82.0 - 96.0 fL 08/30/2024 11:08 AM CDT [facility] MCH 30.9 26.0 - 34.0 pg 08/30/2024 11:08 AM CDT [facility] MCHC 32.7 31.0 - 36.0 g/dL 08/30/2024 11:08 AM CDT [facility] PLATELET COUNT 238 140 - 440 10(3)/mcL 08/30/2024 11:08 AM CDT [facility] RDW 12.6 11.8 - 15.5 % 08/30/2024 11:08 AM CDT [facility] MPV 10.0 9.7 - 12.4 fL 08/30/2024 11:08 AM CDT [facility] NEUTROPHILS 63.0 47.0 - 73.0 % 08/30/2024 11:08 AM CDT [facility] LYMPHOCYTES 23.3 18.0 - 42.0 % 08/30/2024 11:08 AM CDT [facility] MONOCYTES 8.0 4.0 - 12.0 % 08/30/2024 11:08 AM CDT [facility] EOSINOPHILS 4.3 0.0 - 5.0 % 08/30/2024 11:08 AM CDT [facility] BASOPHILS 0.8 0.0 - 1.0 % 08/30/2024 11:08 AM CDT [facility] IMMATURE GRANULOCYTE 0.6(H) 0.0 - 0.4 % 08/30/2024 11:08 AM CDT [facility] Comment:Immature Granulocyte s includes Metamyelocytes, Myelocytes, and Promyelocytes. ABSOLUTE NEUTROPHILS 4.58 1.60 - 7.70 10(3)/[facility] 08/30/2024 11:08 AM CDT [facility] ABSOLUTE LYMPHOCYTES 1.69 1.30 - 3.20 10(3)/[facility] 08/30/2024 11:08 AM CDT [facility] ABSOLUTE MONOCYTES 0.58 0.20 - 1.00 10(3)/[facility] 08/30/2024 11:08 AM CDT [facility] ABSOLUTE EOSINOPHIL 0.31 0.00 - 0.40 10(3)/[facility] 08/30/2024 11:08 AM CDT [facility] ABSOLUTE BASOPHILS 0.06 0.00 - 0.10 10(3)/[facility] 08/30/2024 11:08 AM CDT [facility] ABSOLUTE IMMATURE GRANULOCYTE 0.04(H) 0.00 - 0.03 10 (3) mcL. 08/30/2024 11:08 AM CDT [facility] NRBC PER 100 WBC 0 08/31/19 25 11:08 AM CDT [facility] Blood Venipuncture / Unknown 08/30/2024 10:46 AM CDT 08/30/2024 10:59 AM CDT Eileen Spencer MD HEMATOLOGY ORDERABLES Fi nal Result [facility] [address] [place] [address] * (ABNORMAL) Comprehensive Metabolic Panel (Cmp) [id number] (08/30/2024 10:46 AM CDT) SODIUM 135(L) 136 - 145 mmol/L 08/30/2024 11:38 AM CDT [facility] POTASSIUM 4.8 3.5 - 5.1 mmol/L 08/30/2024 11:38 AM CDT [facility] CHLORIDE 105 98 - 107 mmol/L 08/30/2024 11:38 AM [facility] CO2, VENOUS 23 22 - 30 mmol/L 08/30/2024 11:38 AM T [facility] ANION GAP 11.8 <18.0 mmol/L 08/30/2024 11:38 AM [facility] GLUCOSE 407(HH) 70 - 99 mg/dL 08/30/2024 11:38 AM T [facility] BUN 32(H) 10 - 20 mg/dL 08/30/2024 11:38 AM [facility] CREATININE, BLOOD 1.71(H) 0.60 - 1.00 mg/dL 08/30/2024 11:38 AM [facility] BUN/CREATININE RATIO 19 12 - 20 ratio 08/30/2024 11:38 AM T [facility] TOTAL PROTEIN 7.2 6.0 - 8.0 g/dL 08/30/2024 11:38 AM [facility] ALBUMIN 4.1 3.5 - 5.0 g/dL 08/30/2024 11:38 AM [facility] A/G RATIO 1.3 1.0 - 2.2 08/30/2024 11:38 AM [facility] CALCIUM 9.2 8.7 - 10.5 mg/dL 08/30/2024 11:38 AM [facility] T BILI 0.4 0.2 - 1.2 mg/dL 08/30/2024 11:38 AM T [facility] SGOT (AST) 28 <43 U/L 08/30/2024 11:38 AM T [facility] SGPT (ALT) 34 <56 U/L 08/30/2024 11:38 AM [facility] ALKALINE PHOSPHATASE 139 40 - 150 U/L 08/30/2024 11:38 AM T [facility] GFR, ESTIMATED 29(L) >=60 08/30/2024 11:38 AM CDT [facility] Comment: Creatinine Clearance is the preferred criteria for selecting drug dose adjustments in renally impaired patients. The GFR is provided as additional pertinent clinical information. GFR is reported in mL/min/1.73 sq m. Calculation based on the Chronic Kidney Disease Epidemiology Collaboration (CKD- EPI) equation refit without adjustment for race. GFR, EST. 34(L) >=60 025 11:38 AM CDT [facility] GFR, EST. NONAFRICAN 28(L) >=60 08/30/2024 11:38 AM CDT [facility] Blood Venipuncture / Unknown 08/30/2024 10:46 AM CDT 08/30/2024 10:59 AM CDT us Eileen Spencer MD CHEMISTRY ORDERABLES Fin al Result [facility] [address] [place] [address] * EKG 12 LEAD (08/30/2024 10:31 AM CDT) Ventricular Rate 77 BPM EXTERNAL EKG Atrial Rate 77 BPM EXTERNAL EKG P-R Interval 244 ms EXTERNAL EKG QRS Duration 152 ms EXTERNAL EKG Q-T Duration 418 ms EXTERNAL EKG QTC CALCULATION 473 ms EXTERNAL EKG P [place] 52 degrees EXTERNAL EKG R [place] -37 degrees EXTERNAL EKG T [place] 135 degrees EXTERNAL EKG 08/30/2024 10:3 1 AM CDT Impressions EXTERNAL EKG - 08/31/2024 3:04 PM CDT Sinus rhythm with 1st degree AV block Left axis deviation Left bundle branch block Abnormal ECG When compared with ECG of 04-JAN-2022 17:54, OR interval has increased Confirmed by Rafael Rondno ([id number]) on 08/31/2024 3:04:11 PM Narrative Procedure Note Rafael Rondon MD PhD - 08/31/2024 IMPRESSION: Sinus rhythm with 1st degree AV block Left axis deviation Left bundle branch block Abnormal ECG When compared with ECG of 04-JAN-2022 17:54, OR interval has increased Confirmed by Rafael Rondon ([id number]) on 08/31/2024 3:04:11 PM Eileen Spencer MD IMG ECG ORDERABLES Final Result EXTERNAL EKG * EKG SCAN (08/30/2024 12:00 AM CDT) 08/30/2024 Provider Scan IMG ECG ORDERABLES Final Result RESULTING AGENCY * (ABNORMAL) POCT GLYCOSYLATED HEMOGLOBIN (08/22/2024 9:19 AM CDT) HGB-A1C 10.4(A) 4 - 6 % Blood 08/22/2024 9:19 AM CDT Result [facility] [place] Stacie Lemon MD POINT OF CARE TESTING (MANUAL) F inal Result * HEPATITIS C ANTIBODY (02/08/2023 10:45 AM INSTRUCTIONAL MATERIALS DIRECTOR) hepatitis C antibody 0.09 <1 S/CO [facility] ARCH [id number] 02/08/2023 9:45 PM INSTRUCTIONAL MATERIALS DIRECTOR [facility] Comment: Signal/Cutoff ratio < 0.79 is Nondetected Signal/Cutoff ratio 0.80-0.99 is Grayzone Signal/Cutoff ratio > 0.99 is Detected Supplemental assays are recommended if signal/cutoff ratio is >/=1.00. Signal/cutoff ratio result >/= 5.00 is 97% predictive of positivity for recombinant immunoblot assay (RIBA) and will be reported to the [place] Department of Public Health as required. Blood Venipuncture / Unknown 02/08/2023 10:45 AM INSTRUCTIONAL MATERIALS DIRECTOR 02/08/2023 10:45 AM INSTRUCTIONAL MATERIALS DIRECTOR Salomón Meehan MD CHEMISTRY ORDERABLES Arianne l Result [facility] [address] [place] [address], [place] * DILATED EYE EXAM (01/14/2022 12:00 AM INSTRUCTIONAL MATERIALS DIRECTOR) 01/14/2022 us Not On File Provider PROCEDURE/MINOR SURGICAL OR DERABLES Final Result SCAN * [facility] BONE DENSITOMETRY AXIAL SKELETON (04/09/2021 1:42 PM INSTRUCTIONAL MATERIALS DIRECTOR) Anatomical Region Laterality Modality BODY N/A Other 04/09/2021 8:13 PM INSTRUCTIONAL MATERIALS DIRECTOR Impressions 04/09/2021 8:15 PM INSTRUCTIONAL MATERIALS DIRECTOR IMPRESSION: Normal bone mineral density by WHO [...] of Osteoporosis (http://www.nof.org/professionals/clinical-guidelines) Narrative 04/09/2021 8:15 PM INSTRUCTIONAL MATERIALS DIRECTOR EXAM DESCRIPTION: [facility] BONE DENSITOMETRY AXIAL SKELETON REASON FOR STUDY: Post-menopausal female, screening for osteoporosis. External Auditor/Model: Apruve (S/N [id number]) CLINICAL INFORMATION: Current height: 65 inches Maximum [...] Nik Arrington M.D. AB: AB Report ID: [id number] Reading Location: [place] [address] Procedure Note Nik Arrington MD - 04/09/2021 EXAM DESCRIPTION: ERIN BONE DENSITOMETRY AXIAL SKELETON REASON FOR STUDY: Post-menopausal female, screening for osteoporosis. External Auditor/Model: Apruve (S/N [id number]) CLINICAL INFORMATION: Current height: 65 inches Maximum [...] Nik Arrington M.D. AB: AB Report ID: [id number] Reading Location: [place] [address] IMPRESSION: Normal bone mineral density by WHO [...] Ramirez Esquivel PAC IMG DEXA ORDERABLES Arianne l Result from Last 3 Months or Most Recently Relevant to Health Maintenance Insurance MEDICARE C [facility] [place] [address] Advance Directives Documents on File Type Date Recorded Patient Cook Mayonnaise Expl anation POLST/POST/[place] DNR 04/29/2023 11:04 AM POLS T, 04/21/2023 [...] measures to stabilize the patient. Care Teams Power Generating Plant Operator Relationship Specialty Start Date End Date Silvino Malagon MD [address] [place] [address] PCP - General Pediatrics 11/29/23 Sheng Castillo MD [address] [place] [id number] Ophthalmology 06/28/19 Kg Syed DPM [address] [place] [address] Consulting Physician Podiatry 01/14/21 Pawel Wolfe MD [address] [place] [address] Consulting Physician Neurology 11/04/22 Stacie Lemon MD #[address] [id number] Consulting Physician Endocrinology 06/16/23 Vickie Stallworth APRN, HOSPICE CARE CONSULTANT [address] [place] [address] Nurse Practitioner Advanced Practice Nurse 08/30/24
--- OUTSIDE RECORDS SUMMARY | 2024-11-09 16:26 | XMS_ITS | Encounter Summary ---
Author Organization [facility] Address [address] [place] [address] Phone Care Team Providers Care Framing Mill Operator Name Role Phone Salomón Meehan MD Primary Care Provider Sheng Castillo MD Unavailable [phone] Kg Syed DPAgusto Unavailable [phone] Jose De La Fuente MD Unavailable Pawel Wheeler MD Unavailable [phone] Stacie Lemon MD Unavailable Silvino Malagon MD Primary Care Provider Vickie Stallworth RECRUITER ACCOUNT MANAGER, RN INFORMATICS Unavailable Reason for Visit * Reason Comments Medication Refill Encounter Details Date Type Department Care Team (Late st Contact Info) Description 07/15/2023 Refill [facility] - Primary Care - [place] [address] [place] [address] Salomón Meehan MD [address] [place] [address] Medication Refill Social History Tobacco [...] Description 11/23/2024 9:30 AM CDT Office Visit [facility] - Endocrinology - [place] [address]2 [place] [address] Stacie Lemon MD #[address] [address] 02/11/2025 10:30 AM PROPERTY PORTFOLIO OFFICER Office Visit [facility] - Neurology - [place] [address] [place] [address] Vickie Stallworth APRN, RN INFORMATICS #2 [place] [address] documented as of this encounter Visit Diagnoses Not on filedocumented in this encounter Additional Health Concerns Infection Onset Date Last Indicated Resolved Time Respiratory Rule-Out 07/15/2023 07/15/2023 024 1:25 PM CDT Respiratory Rule-Out 08/23/2023 08/23/2023 024 6:42 AM CDT Assessment Noted Time PHQ-9 Depression Total Score: 0 02/08/19 24 10:13 AM PROPERTY PORTFOLIO OFFICER documented as of this encounter Care Teams Framing Mill Operator Relationship Specialty Start Date End Date Salomón Meehan MD [address] [place] [address] PCP - General Internal Medicine 10/20/14 11/14/23 Silvino Malagon MD [address] [place] [address] PCP - General Pediatrics 11/29/23 Sheng Castillo MD [address] [place] [address] Ophthalmology 06/28/19 Kg Syed DPM [address] [place] [address] Consulting Physician Podiatry 01/14/21 Jose De La Fuente MD [address] [place] [address] Consulting Physician Cardiovascular Disease - Cardiology 02/23/22 08/08/24 Pawel Wolfe MD #1 [place] [address] Consulting Physician Neurology 11/04/22 Stacie Lemon MD #[address] [address] Consulting Physician Endocrinology 06/16/23 Vickie Stallworth, RECRUITER ACCOUNT MANAGER, RN INFORMATICS #2 [place] [address] Nurse Practitioner Advanced Practice Nurse 08/30/24 documented as of this encounter
--- OUTSIDE RECORDS SUMMARY | 2024-11-09 16:26 | XMS_ITS | Encounter Summary ---
Author Organization [facility] Address [address] [place] [address] Phone Care Team Providers Care Contract Project Manager Name Role Phone Salomón Meehan MD Primary Care Provider Sheng Castillo MD Unavailable [phone] Kg Syed DPAgusto Unavailable [phone] Jose De La Fuente MD Unavailable Pawel Wheeler MD Unavailable [phone] Stacie Lemon MD Unavailable Silvino Malagon MD Primary Care Provider [phone] Vickie Stallworth PILLOWCASE CUTTER, CHANNEL SALES DIRECTOR Unavailable Reason for Visit * Reason Comments Medication Refill Encounter Details Date Type Department Care Team (Late st Contact Info) Description 05/19/2023 Refill [facility] - Primary Care - [place] [address] [place] [address] Salomón Meehan MD [address] [place] [address] Medication Refill Social History Tobacco [...] AM CDT Medication(s) refilled and signed per [facility] Chronic Medication Refill Standing Order for Pediatricand Adult Patients. Requested Prescriptions Pending Prescriptions Disp Refills Insulin Pen Needle (B-D ULTRAFINE III SHORT PEN) 31G X 8 MM Misc [Pharmacy Med Name: BD UF SHORT PEN NEEDLE [id number]] 100 Pen Needle 1 Sig: USE TO INJECT INSULIN FOUR TIMES DAILY Diabetic Supplies Protocol Passed - 05/19/2023 11:46 AM Passed - Visit with relevant provider in past 6 months Recent Visits Date Type Provider Dept 04/21/23 Office Visit Hazel Acuña APRN, PER DIEM [facility] 02/08/23 Office Visit Salomón Meehan MD [facility] Showing recent visits within past 182 days and meeting all other requirements Future Appointments Date Type Provider Dept 08/15/23 Appointment Salomón Meehan MD [facility] Showing future appointments within next 90 days and meeting all other requirements documented in this encounter Plan of Treatment Upcoming Encounters Date Type Department Care Team (Late st Contact Info) Description 11/23/2024 9:30 AM CDT [facility] - Endocrinology - [place] [address] [place] [address] Stacie Lemon MD #[address] [address] 02/11/2025 10:30 AM STUDENT FINANCIAL SERVICES COUNSELOR Office Visit [facility] - Neurology - [place] [address] [place] [address] Vickie Stallworth, PILLOWCASE CUTTER, CHANNEL SALES DIRECTOR [address] [place] [address] documented as of this encounter Visit Diagnoses Diagnosis Type 2 diabetes mellitus with diabetic neuropathy, unspecified documented in this encounter Additional Health Concerns Infection Onset Date Last Indicated Resolved Time Respiratory Rule-Out 07/15/2023 07/15/2023 024 1:25 PM CDT Respiratory Rule-Out 08/23/2023 08/23/2023 024 6:42 AM CDT Assessment Noted Time PHQ-9 Depression Total Score: 0 02/08/19 10:13 AM STUDENT FINANCIAL SERVICES COUNSELOR documented as of this encounter Care Teams Contract Project Manager Relationship Specialty Start Date End Date Salomón Meehan MD [address] [place] [address] PCP - General Internal Medicine 10/20/14 11/14/23 Silvino Malagon MD [address] [place] [address] PCP - General Pediatrics 11/29/23 Sheng Castillo MD [address] [place] [address] Ophthalmology 06/28/19 Kg Syed DPM [address] [place] [address] Consulting Physician Podiatry 01/14/21 Jose De La Fuente MD [address] [place] [address] Consulting Physician Cardiovascular Disease - Cardiology 02/23/22 08/08/24 Pawel Wolfe MD #1 [place] [address] Consulting Physician Neurology 11/04/22 Stacie Lemon MD #[address] [address] Consulting Physician Endocrinology 06/16/23 Vickie Stallworth, PILLOWCASE CUTTER, CHANNEL SALES DIRECTOR [address] [place] [address] Nurse Practitioner Advanced Practice Nurse 08/30/24 documented as of this encounter
--- OUTSIDE RECORDS SUMMARY | 2024-11-09 16:26 | XMS_ITS | Encounter Summary ---
Author Organization [facility] Address [address] [place] [address] Phone Care Team Providers Care Waste Water Treatment Plant Operator Name Role Phone Salomón Meehan MD Primary Care Provider [phone] Sheng Castillo MD Unavailable [phone] Kg Syed DPM Unavailable [phone] Jose De La Fuente MD Unavailable Pawel Wheeler MD Unavailable Stacie Lemon MD Unavailable Silvino Malagon MD Primary Care Provider Vickie Stallworth QUALITY CONTROL EXPERT, KNIT TUBING DYER Unavailable Reason for Visit * Reason Comments Medication Refill Encounter Details Date Type Department Care Team (Late st Contact Info) Description 10/29/2020 Refill [facility] [address] [place], [place] [id number] Salomón Meehan MD [address] [place] [address] Medication Refill Social History Tobacco [...] Description 11/23/2024 9:30 AM CDT Office Visit [facility] - Endocrinology - [place] #2 [place] [address] Stacie Lemon MD #[address] [address] 02/11/2025 10:30 AM HAT MODEL Office Visit [facility] - Neurology - [place] [address] [place] [address] Vickie Stallworth, QUALITY CONTROL EXPERT, KNIT TUBING DYER [address] [place] [address] documented as of this encounter Visit Diagnoses Not on filedocumented in this encounter Additional Health Concerns Infection Onset Date Last Indicated Resolved Time COVID - 19 12/27/2021 12/27/2021 12/28/2021 8:17 AM HAT MODEL Respiratory Rule-Out 12/27/2021 12/27/2021 022 12:56 AM HAT MODEL Respiratory Rule Out - RPA 12/28/2021 12/28/2021 1 02/27/2021 10:34 PM HAT MODEL RSV 12/28/2021 12/28/2021 01/25/2022 12:1 6 AM HAT MODEL Respiratory Rule-Out 07/15/2023 07/15/2023 024 1:25 PM CDT Respiratory Rule-Out 08/23/2023 08/23/2023 024 6:42 AM CDT Assessment Noted Time PHQ-9 Depression Total Score: 0 11/17/19 19 10:00 AM CDT documented as of this encounter Care Teams Waste Water Treatment Plant Operator Relationship Specialty Start Date End Date Salomón Meehan MD [address] [place] [address] PCP - General Internal Medicine 10/20/14 11/14/23 Silvino Malagon MD [address] [place] [address] PCP - General Pediatrics 11/29/23 Sheng Castillo MD [address] [place] [address] Ophthalmology 06/28/19 Kg Syed DPM [address] [place] [address] Consulting Physician Podiatry 01/14/21 Jose De La Fuente MD [address] [place] [address] Consulting Physician Cardiovascular Disease - Cardiology 02/23/22 08/08/24 Pawel Wolfe MD #[address] [place] [address] Consulting Physician Neurology 11/04/22 Stacie Lemon MD #[address] [address] Consulting Physician Endocrinology 06/16/23 Vickie Stallworth, QUALITY CONTROL EXPERT, KNIT TUBING DYER [address] [place] [address] Nurse Practitioner Advanced Practice Nurse 08/30/24 documented as of this encounter
--- OUTSIDE RECORDS SUMMARY | 2024-11-09 16:26 | XMS_ITS | Clinical Summary ---
Author Organization [facility] Address [address] [address] Care Team Providers Care Playground Director Name Role Phone Salomón Meehan MD Primary Care Provider [phone] Medications aspirin (ST OLYA) 81 MG EC [...] 1 (one) time each day Active multivitamin-ir md-amdwpupi-fjr ic acid (THERAPEUTIC-M) tablet Take 1 tablet [...] 05/10/2023 024, 02/08/2023, 07/27/2022 Influenza Vaccine (#1) 2024 3, 11/04/2021, 11/14/2020, [...] Hemoglobin A1C 11.2(A) 4.0 - 6.0 Blood specimen (specimen) Venous blood / Unknown 02/08/2023 Historical Provider LAB BLOOD ORDERABLES Arianne l Result from Last 3 Months or Most Recently Relevant to Health Maintenance Care Teams Playground Director Relationship Specialty Start Date End Date Salomón Meehan MD [address] [place] [address] PCP - General Internal Medicine 04/05/23
--- OUTSIDE RECORDS SUMMARY | 2024-11-09 16:28 | XMS_ITS | Encounter Summary ---
Author Organization [facility] Address [address] [place] [address] Phone Care Team Providers Care Envelope Cutter Name Role Phone Salomón Meehan MD Primary Care Provider Sheng Castillo MD Unavailable [phone] Kg Syed DPAgusto Unavailable [phone] Jose De La Fuente MD Unavailable Pawel Wheeler MD Unavailable [phone] Stacie Lemon MD Unavailable Silvino Malagon MD Primary Care Provider Vickie Stallworth COLOR PRINTER OPERATOR, REGISTERED MEDICAL TRANSCRIPTIONIST Unavailable Reason for Visit * Reason Comments Medication Refill Encounter Details Date Type Department Care Team (Late st Contact Info) Description 10/22/2023 Refill [facility] - Primary Care - [place] [address] [place] [address] Salomón Meehan MD [address] [place] [address] Medication Refill Social History Tobacco [...] discontinued on 04/21/2023 by Hazel Acuña APRN, PIPELINE DISPATCH OPERATOR documented in this encounter Plan of Treatment Upcoming Encounters Date Type Department Care Team (Late st Contact Info) Description 11/23/2024 9:30 AM CDT Office Visit [facility] - Endocrinology - [place] [address] [place] [address] Stacie Lemon MD #[address] [address] 02/11/2025 10:30 AM DIGITAL CIRCUIT DESIGNER Office Visit [facility] - Neurology - [place] #[address] [place] [address] Vickie Stallworth APRN, REGISTERED MEDICAL TRANSCRIPTIONIST #2 [place] [address] documented as of this encounter Visit Diagnoses Diagnosis Elevated brain natriuretic peptide (BNP) level Other nonspecific findings on examination of blood documented in this encounter Additional Health Concerns Assessment Noted Time PHQ-9 Depression Total Score: 0 02/08/19 24 10:13 AM DIGITAL CIRCUIT DESIGNER documented as of this encounter Care Teams Envelope Cutter Relationship Specialty Start Date End Date Salomón Mehean MD [address] [place] [address] PCP - General Internal Medicine 10/20/14 11/14/23 Silvino Malagon MD [address] [place] [address] PCP - General Pediatrics 11/29/23 Sheng Castillo MD [address] [place] [address] Ophthalmology 06/28/19 Kg Syed DPM [address] [place] [address] Consulting Physician Podiatry 01/14/21 Jose De La Fuente MD [address] [place] [address] Consulting Physician Cardiovascular Disease - Cardiology 02/23/22 08/08/24 Pawel Wolfe MD #1 [place] [address] Consulting Physician Neurology 11/04/22 Stacie Lemon MD #[address] [address] Consulting Physician Endocrinology 06/16/23 Vickie Stallworth, COLOR PRINTER OPERATOR, REGISTERED MEDICAL TRANSCRIPTIONIST #[address] [place] [address] Nurse Practitioner Advanced Practice Nurse 08/30/24 documented as of this encounter
--- OUTSIDE RECORDS SUMMARY | 2024-11-09 16:28 | XMS_ITS | Encounter Summary ---
Author Organization [facility] Address [address] [place] [address] Phone Care Team Providers Care Alcohol Law Enforcement Agent Name Role Phone Salomón Meehan MD Primary Care Provider Sheng Castillo MD Unavailable [phone] Kg Syed DPAgusto Unavailable [phone] Jose De La Fuente MD Unavailable Pawel Wheeler MD Unavailable [phone] Stacie Lemon MD Unavailable Silvino Malagon MD Primary Care Provider Vickie Stallworth FOOD STAND MANAGER, MATRIX BATH OPERATOR Unavailable Reason for Visit * Reason Comments Medication Refill Encounter Details Date Type Department Care Team (Late st Contact Info) Description 02/28/2022 Refill [facility] - Primary Care - [place] [address] [place] [address] Salomón Meehan MD [address] [place] [address] Medication Refill Social History Tobacco [...] Coronavirus/COVID-19? No / Unsure 02/25/2022 1:16 PM SPECIAL PROGRAMS DIRECTOR documented as of this encounter Miscellaneous Notes * Telephone Encounter - Pepper Godinez RN - 03/01/2022 9:12 AM SPECIAL PROGRAMS DIRECTOR Refill requested too soon. IAL PROGRAMS DIRECTOR documented in this encounter Plan of Treatment Upcoming Encounters Date Type Department Care Team (Late st Contact Info) Description 11/23/2024 9:30 AM CDT Office Visit [facility] - Endocrinology - [place] #2 [place] [address] Stacie Lemon MD #[address] [address] 02/11/2025 10:30 AM SPECIAL PROGRAMS DIRECTOR [facility] - Neurology - [place] #[address] [place] [address] Vickie Stallworth APRN, MATRIX BATH OPERATOR #[address] [place] [address] documented as of this encounter Visit Diagnoses Not on filedocumented in this encounter Additional Health Concerns Infection Onset Date Last Indicated Resolved Time Respiratory Rule-Out 07/15/2023 07/15/2023 024 1:25 PM CDT Respiratory Rule-Out 08/23/2023 08/23/2023 024 6:42 AM CDT Assessment Noted Time PHQ-9 Depression Total Score: 0 11/17/19 19 10:00 AM CDT documented as of this encounter Care Teams Alcohol Law Enforcement Agent Relationship Specialty Start Date End Date Salomón Meehan MD [address] [place] [address] PCP - General Internal Medicine 10/20/14 11/14/23 Silvino Malagon MD [address] [place] [address] PCP - General Pediatrics 11/29/23 Sheng Castillo MD [address] [place] [address] Ophthalmology 06/28/19 Kg Syed DPM [address] [place] [address] Consulting Physician Podiatry 01/14/21 Jose De La Fuente MD [address] [place] [address] Consulting Physician Cardiovascular Disease - Cardiology 02/23/22 08/08/24 Pawel Wolfe MD #[address] [place] [address] Consulting Physician Neurology 11/04/22 Stacie Lemon MD #[address] [address] Consulting Physician Endocrinology 06/16/23 Vickie Stallworth, FOOD STAND MANAGER, MATRIX BATH OPERATOR #[address] [place] [address] Nurse Practitioner Advanced Practice Nurse 08/30/24 documented as of this encounter
--- OUTSIDE RECORDS SUMMARY | 2024-11-09 16:28 | XMS_ITS | Encounter Summary ---
Author Organization [facility] Address [address] [place] [address] Phone Care Team Providers Care Leather Case Finisher Name Role Phone Salomón Meehan MD Primary Care Provider Sheng Castillo MD Unavailable [phone] Kg Syed DPAgusto Unavailable [phone] Jose De La Fuente MD Unavailable Pawel Wheeler MD Unavailable [phone] Stacie Lemon MD Unavailable Silvino Malagon MD Primary Care Provider Vickie Stallworth MENTAL HEALTH CLINICIAN, STOPER Unavailable Reason for Visit * Reason Comments Medication Refill Encounter Details Date Type Department Care Team (Late st Contact Info) Description 10/28/2023 Refill [facility] - Primary Care - [place] [address] [place] [address] Salomón Meehan MD [address] [place] [address] Medication Refill Social History Tobacco [...] Description 11/23/2024 9:30 AM CDT Office Visit [facility] - Endocrinology - [place] [address] [place] [address] Stacie Lemon MD #[address] [address] 02/11/2025 10:30 AM VEST PRESSER Office Visit [facility] - Neurology - [place] [address] [place] [address] Vickie Stallworth APRN, STOPER [address] [place] [address] documented as of this encounter Visit Diagnoses Diagnosis Elevated brain natriuretic peptide (BNP) level Other nonspecific findings on examination of blood documented in this encounter Additional Health Concerns Assessment Noted Time PHQ-9 Depression Total Score: 0 02/08/19 24 10:13 AM VEST PRESSER documented as of this encounter Care Teams Leather Case Finisher Relationship Specialty Start Date End Date Salomón Meehan MD [address] [place] [address] PCP - General Internal Medicine 10/20/14 11/14/23 Silvino Malagon MD [address] [place] [address] PCP - General Pediatrics 11/29/23 Sheng Castillo MD [address] [place] [address] Ophthalmology 06/28/19 Kg Syed DPM [address] [place] [address] Consulting Physician Podiatry 01/14/21 Jose De La Fuente MD [address] [place] [address] Consulting Physician Cardiovascular Disease - Cardiology 02/23/22 08/08/24 Pawel Wolfe MD #1 [place] [address] Consulting Physician Neurology 11/04/22 Stacie Lemon MD #[address] [phone] Consulting Physician Endocrinology 06/16/23 Vickie Stallworth, MENTAL HEALTH CLINICIAN, STOPER [address] [place] [address] Nurse Practitioner Advanced Practice Nurse 08/30/24 documented as of this encounter
--- OUTSIDE RECORDS SUMMARY | 2024-11-09 16:28 | XMS_ITS | Encounter Summary ---
Author Organization [facility] Address [address] [place] [address] Phone Care Team Providers Care Hose Tester Name Role Phone Salomón Meehan MD Primary Care Provider Sheng Castillo MD Unavailable [phone] Kg Syed DPAgusto Unavailable [phone] Jose De La Fuente MD Unavailable Pawel Wheeler MD Unavailable [phone] Stacie Lemon MD Unavailable Silvino Malagon MD Primary Care Provider Vickie Stallworth SERVER ASSISTANT, BIOMETRICS INSTRUCTOR Unavailable Reason for Visit * Reason Comments Medication Refill Encounter Details Date Type Department Care Team (Late st Contact Info) Description 11/14/2023 Refill [facility] - Primary Care - [place] [address] [place] [address] Salomón Meehan MD [address] [place] [address] Medication Refill Social History Tobacco [...] discontinued on 04/21/2023 by Hazel Acuña APRN, CERTIFIED WELDER documented in this encounter Plan of Treatment Upcoming Encounters Date Type Department Care Team (Late st Contact Info) Description 11/23/2024 9:30 AM CDT Office Visit [facility] - Endocrinology - [place] [address] [place] [address] Stacie Lemon MD #[address] [address] 02/11/2025 10:30 AM COLLEGE ADVISOR Office Visit [facility] - Neurology - [place] [address] [place] [address] Vickie Stallworth APRN, BIOMETRICS INSTRUCTOR #[address] [place] [address] documented as of this encounter Visit Diagnoses Diagnosis Elevated brain natriuretic peptide (BNP) level Other nonspecific findings on examination of blood documented in this encounter Additional Health Concerns Assessment Noted Time PHQ-9 Depression Total Score: 0 02/08/19 24 10:13 AM COLLEGE ADVISOR documented as of this encounter Care Teams Hose Tester Relationship Specialty Start Date End Date Salomón Meehan MD [address] [place] [address] PCP - General Internal Medicine 10/20/14 11/14/23 Silvino Malagon MD [address] [place] [address] PCP - General Pediatrics 11/29/23 Sheng Castillo MD [address] [place] [address] Ophthalmology 06/28/19 Kg Syed DPM [address] [place] [address] Consulting Physician Podiatry 01/14/21 Jose De La Fuente MD [address] [place] [address] Consulting Physician Cardiovascular Disease - Cardiology 02/23/22 08/08/24 Pawel Wolfe MD #[address] [place] [address] Consulting Physician Neurology 11/04/22 Stacie Lemon MD #[address] [address] Consulting Physician Endocrinology 06/16/23 Vickie Stallworth, SERVER ASSISTANT, BIOMETRICS INSTRUCTOR #[address] [place] [address] Nurse Practitioner Advanced Practice Nurse 08/30/24 documented as of this encounter
--- OUTSIDE RECORDS SUMMARY | 2024-11-09 16:28 | XMS_ITS | Encounter Summary ---
Author Organization [facility] Address [address] [place] [address] Phone Care Team Providers Care Car Body Mechanic Name Role Phone Salomón Meehan MD Primary Care Provider Sheng Castillo MD Unavailable [phone] Kg Syed DPM Unavailable [phone] Jose De La Fuente MD Unavailable Pawel Wheeler MD Unavailable [phone] Stacie Lemon MD Unavailable Silvino Malagon MD Primary Care Provider Vickie Stallworth DIRECTOR OF PERSONNEL, MEDICAL AUTHORIZATION SPECIALIST Unavailable [phone] Encounter Details Date Type Department Care Team (Latest Contact Info) Description 05/27/2022 [facility] [address] [place] [address] Jose De La Fuente MD [...] Description 11/23/2024 9:30 AM CDT Office Visit [facility] - Endocrinology - [place] [address] [place] [address] Stacie Lemon MD [address] [address] 02/11/2025 10:30 AM LIGHTHOUSE KEEPER Office Visit [facility] - Neurology - [address] [place] [address] Vickie Stallworth APRN, MEDICAL AUTHORIZATION SPECIALIST [address] [place] [address] documented as of this encounter Results * PROTIME (PT) (PROTHROMBIN TIME) (06/01/2022 10:58 AM CDT) PROTIME-PATIENT 12.8 11.6 - 14.8 sec 06/01/2022 11:33 AM CDT [facility] INR 1.0 0.9 - 1.2 06/01/2022 11:33 AM CDT [facility] Comment: Therapeutic Ranges INR = 2.0-3.0: Venous thromb, atrial fib, pul embolism, tissue heart valve, ami. INR = 2.5-3.5: Mechanical heart valve Critical value for INR is >/= 4.5 Blood Venipuncture / Unknown 06/01/2022 10:58 AM CDT 06/01/2022 11:06 AM CDT us Jose Orantes MD HEMATOLOGY ORDERABLES F inal Result [facility] [address] [place] [address] * (ABNORMAL) BASIC METABOLIC PANEL W/ CALCIUM TOTAL (06/01/2022 10:58 AM CDT) Pathologist [facility] SODIUM 136 136 - 144 mmol/L 06/01/2022 11:[address] [facility] POTASSIUM 5.3(H) 3.5 - 5.1 mmol/L 06/01/2022 11:[address] [facility] CHLORIDE 101 100 - 110 mmol/L 06/01/2022 11:[address] [facility] CO2, VENOUS 27 22 - 32 mmol/L 06/01/2022 11:[address] [facility] ANION GAP 13.3 8.0 - 20.0 mmol/L 06/01/2022 11:[address] [facility] GLUCOSE 204(H) 70 - 99 mg/dL 06/01/2022 11:29 AM CDT [facility] BUN 24(H) 8 - 23 mg/dL 06/01/2022 11:29 AM CDT [facility] CREATININE, BLOOD 1.36(H) 0.60 - 1.10 mg/dL 06/01/2022 11:29 AM CDT [facility] BUN/CREATININE RATIO 18 12 - 20 ratio 06/01/2022 11:[address] [facility] CALCIUM 9.9 8.9 - 10.3 mg/dL 06/01/2022 11:29 AM CDT [facility] IS THE PATIENT REQUIRED TO BE FASTING? No 06/01/2022 11:[address] [facility] GFR, ESTIMATED 39(L) >=60 06/01/2022 11:29 AM CDT [facility] Comment: Creatinine Clearance is the preferred criteria for selecting drug dose adjustments in renally impaired patients. The GFR is provided as additional pertinent clinical information. GFR is reported in mL/min/1.73 sq m. Calculation based on the Chronic Kidney Disease Epidemiology Collaboration (CKD- EPI) equation refit without adjustment for race. GFR, EST. 45(L) >=60 023 11:29 AM CDT [facility] GFR, EST. NONAFRICAN 37(L) >=60 06/01/2022 11:29 AM CDT [facility] Blood Venipuncture / Unknown 06/01/2022 10:58 AM CDT 06/01/2022 11:07 AM CDT Jose Orantes MD CHEMISTRY ORDERABLES Fi nal Result [facility] [address] [place] [address] documented in this encounter Visit Diagnoses Diagnosis Chronic systolic congestive heart failure- Primary Chronic systolic heart failure Preprocedural cardiovascular examination Pre-operative cardiovascular examination documented in this encounter Additional Health Concerns Infection Onset Date Last Indicated Resolved Time Respiratory Rule-Out 07/15/2023 07/15/2023 024 1:25 PM CDT Respiratory Rule-Out 08/23/2023 08/23/2023 024 6:42 AM CDT Assessment Noted Time PHQ-9 Depression Total Score: 0 11/17/19 19 10:00 AM CDT documented as of this encounter Care Teams Car Body Mechanic Relationship Specialty Start Date End Date Salomón Meehan MD [address] [place] [address] PCP - General Internal Medicine 10/20/14 11/14/23 Silvino Malagon MD [address] [place] [address] PCP - General Pediatrics 11/29/23 Sheng Castillo MD [address] [place] [address] Ophthalmology 06/28/19 Kg Syed, ANA MARIAM [address] [place] [address] Consulting Physician Podiatry 01/14/21 Jose De La Fuente MD [address] [place] [address] Consulting Physician Cardiovascular Disease - Cardiology 02/23/22 08/08/24 Pawel Wolfe MD [address] [place] [address] Consulting Physician Neurology 11/04/22 Stacie Lemon MD #[address] [address] Consulting Physician Endocrinology 06/16/23 Vickie Stallworth, DIRECTOR OF PERSONNEL, MEDICAL AUTHORIZATION SPECIALIST [address] [place] [address] Nurse Practitioner Advanced Practice Nurse 08/30/24 documented as of this encounter
[2024-11-09 16:58] LABS: Hematocrit 41.3 % (35.0-42.0); Hemoglobin 12.4 g/dL (11.7-13.8); Immature Granulocyte Percent A 0.7 % (0.0-0.0); Lymphocytes Absolute Auto 2.38 K/mm3 (1.10-4.50); Mean Corpuscular HGB Conc 30.0 g/dL (32-36); Mean Corpuscular Hemoglobin 30.1 pg (27.0-31.0); Mean Corpuscular Volume 100.2 fL (78.0-102.0); Nucleated Red Blood Cells Absolute Auto 0.00 K/mm3 (0.00-0.00); Nucleated Red Blood Cells Perc 0.0 % (0-0.0); Platelet Count Result 260 K/mm3 (150-420); Red Blood Count 4.12 M/mm3 (4.20-5.40); White Blood Count 7.5 K/mm3 (4.8-10.8)
[2024-11-09 17:10] LABS: Alanine Aminotransferase 30 U/L (6-35); Albumin Level 4.1 g/dL (3.5-5.1); Alkaline Phosphatase 188 U/L (38-126); Anion Gap 10 mmol/L (4-12); Aspartate Amino Transferase 29 U/L (14-36); Bilirubin,Total 0.5 mg/dL (0.2-1.3); Blood Urea Nitrogen 26 mg/dL (7-17); Calcium 9.6 mg/dL (8.4-10.2); Carbon Dioxide 23 mmol/L (22-30); Chloride 104 mmol/L (98-107); Estimated Glomerular Filt Rate 32; Glucose 240 mg/dL (65-110); Osmolality Calculated 296 mOsm/kg (285-295); Potassium 5.0 mmol/L (3.4-5.0); Sodium 137 mmol/L (137-145); Total Protein 7.5 g/dL (6.3-8.2)
[2024-11-09 17:14] LABS: Hemoglobin A1C 10.1 % (<5.7)
[2024-11-09 17:41] LABS: Thyroid Stimulating Hormone 2.640 uIU/mL (0.465-4.680)
== END 2024-11-09 16:24 | disposition home or self-care (01) ==
LOC: CHSLAB 16:25
PROVIDERS: PCP Family Medicine; Visit Provider Family Medicine
DX: E11.40 Type 2 diabetes mellitus with diabetic neuropathy, unspecified (principal)
CPT/HCPCS: 36415; 80053; 83036; 84443; 85025

== ENCOUNTER 2025-01-11 15:33 | Outpatient (CLI) | payer MEDICARE, SELFPAY ==
[2025-01-11 15:48] LABS: Add Urine Microscopic? YES; Appearance Urine Clear (Clear); Glucose Urine UA Trace (Negative); Leukocyte Esterase Ur Trace (Negative); Nitrate Urine Negative (Negative); Specific Grav Ur 1.025 (1.010-1.020)
--- OUTSIDE RECORDS SUMMARY | 2025-01-11 15:48 | XMS_ITS | Clinical Summary ---
Author Organization [facility] Address [address] [place] [place] [address] Phone Care Team Providers Care Manager Group Name Role Phone Sheng Castillo MD Unavailable [phone] Kg Syed DPM Unavailable [phone] Pawel Wolfe MD Unavailable Stacie Lemon MD Unavailable Silvino Malagon MD Primary Care Provider Vickie Stallworth APRN, BLUEPRINT BLOCKER Unavailable [phone] Allergies Active Allergy Reactions Criticality Noted Date Comments Naproxen Palpitations,Other ( see Comments) Low Altered Heart Rate Medications therapeutic multivitamin-mi nerals (THERAGRAN-M) Tablet Take 1 Tablet by mouth daily. Active Cholecalciferol (VITAMIN D3 PO) Take 1,000 Units by mouth daily. Active Calcium Carb-Cholecalci ferol (CALCIUM 500 + D PO) Take 1 Tablet by mouth daily. Active sacubitril-vals cassandra (Entresto) 24-26 MG TabletIndicatio ns:Congestive heart failure, unspecified HF chronicity, unspecified heart failure type Take 1 Tablet by mouth 2 times daily. 180 Tablet 4 10/01/19 23 Active montelukast (SINGULAIR) 10 MG Tablet Take 1 Tablet by mouth every morning. 90 Tablet 3 02/08/19 24 Active spironolactone (ALDACTONE) 25 MG TabletIndicatio ns:Elevated brain natriuretic peptide (BNP) level TAKE 1 TABLET BY MOUTH EVERY DAY 90 Tablet 1 03/07/19 24 Active venlafaxine (EFFEXOR-XR) 75 MG CAPSULE SR 24 HR TAKE 1 CAPSULE BY MOUTH EVERY DAY 90 Capsule 3 04/21/19 24 Active apixaban (ELIQUIS) 5 MG TabletIndicatio ns:Atrial [...] by mouth 2 times daily. Active Lancets ([employer] Delica Plus [id number]) MiscIndications :Type 2 diabetes mellitus without complication, with long-term current use of insulin TEST TWICE A DAY E11.9, insulin dependent 200 Each 3 05/16/19 25 Active Blood Glucose Monitoring Suppl ([employer] Verio Reflect) w/Device Kit Check blood glucose at breakfast and dinner 1 Kit 05/29/19 25 Active atorvastatin (LIPITOR) 80 MG Tablet TAKE 1 TABLET BY MOUTH NIGHTLY 90 Tablet 3 07/07/19 25 Active furosemide (LASIX) 20 MG Tablet Take 20 mg by mouth daily. Active Glucose Blood ([employer] Ver6th Sense Analytics) StripIndication s:Type 2 diabetes mellitus without complication, with long-term current use of insulin TEST 3 TIMES A DAY, E11.9, Insulin dependent 200 Strip 3 09/04/19 25 Active insulin lispro prot & lispro (HUMALOG) (75-25) 100 UNIT/ML Suspension Pen-injector 50 units at breakfast and 18 units at dinner 60 mL 1 09/08/19 Active Blood Glucose Monitoring Suppl (Contour Plus Blue) w/Device Kit 1 Kit by Does not apply route 3 times daily. Check blood glucose 3x daily, E11.42, insulin dependent 1 Kit 10/27/19 Active glucose blood (Contour Plus Test) StripIndication s:Type 2 diabetes mellitus with diabetic polyneuropathy, with long-term current use of insulin Check blood glucose 3x daily, E11.42, insulin dependent 300 Strip 3 12/05/19 Active Insulin Pen Needle (PEN NEEDLES 31GX5/16) 31G X 8 MM MiscIndications :Type 2 diabetes mellitus with diabetic polyneuropathy, with long-term current use of insulin Use to inject insulin 2x daily. 200 Each 3 12/05/19 Active Accu-Chek Softclix Lancets MiscIndications :Type 2 diabetes mellitus with diabetic polyneuropathy, with long-term current use of insulin 1 Lancet by Other route 2 times daily. Check blood glucose 2x daily, E11.42 200 Each 3 12/08/19 Active Blood Glucose Monitoring Suppl (Accu-Chek Guide) w/Device KitIndications: Type 2 diabetes mellitus with diabetic polyneuropathy, with long-term current use of insulin 1 Kit by Does not apply route 2 times daily. Check blood glucose 2x daily, E11.42 1 Kit 12/08/19 Active levETIRAcetam (KEPPRA) 750 MG TabletIndicatio ns:Focal seizure TAKE 1 TABLET BY MOUTH TWICE A DAY 60 Tablet 1 01/01/20 25 Active levETIRAcetam (Keppra) 750 MG TabletIndicatio ns:Focal seizure Take 1 Tablet by mouth 2 times daily. 60 Tablet 1 11/01/19 25 2024 Discontinued Active Problems Problem Noted Date Diagnosed Date [...] Encounters Date Type Department Care Team Description 12/29/2024 Refill [facility] Neurology - [place] [address] [place] [address] Pawel Wolfe MD Medication Refill 12/07/2024 Refill [facility] Endocrinology - [place] [address] [place] [address] Stacie Lemon MD Medication Refill 12/04/2024 Refill [facility] Endocrinology - [place] [address] [place] [address] Stacie Lemon MD Medication Refill 11/23/2024 9:30 AM CDT Office Visit [facility] Endocrinology - [place] [address] [place] [address] Stacie Lemon MD Type 2 diabetes mellitus with diabetic polyneuropathy, with long-term current use of insulin (Primary Dx); Insulin dose changed; Class 1 obesity due to excess calories with serious comorbidity and body mass index (BMI) of 32.0 to 32.9 in adult Discharge Disposition: Discharged to home or Selfcare 11/23/2024 Travel 11/13/2024 Telephone [facility] Neurology - [place] [address] [place] [address] Vickie Stallworth APRN, BLUEPRINT BLOCKER 10/31/2024 Refill [facility] Neurology - [place] [address] [place] [address] Vickie Stallworth APRN, BLUEPRINT BLOCKER Medication Refill 10/30/2024 8:30 AM CDT Office Visit [facility] Neurology - [place] [address] [place] [address] Vickie Stallworth APRN, BLUEPRINT BLOCKER Witnessed seizure-like activity (HCC) (Primary Dx); History of ischemic stroke; Paroxysmal A-fib (HCC) Discharge Disposition: Discharged to home or Selfcare 10/30/2024 Refill [facility] - [place] [address] [place] [address] Pawel Wolfe MD Medication Refill 10/30/2024 Travel 10/26/2024 [facility] [place] [address] [place] [address] Pawel Wolfe MD Medication Refill 10/26/2024 Refill [facility] Endocrinology - [place] [address] [place] [address] Stacie Lemon MD 10/19/2024 Telephone [facility] Endocrinology - [place] [address] [place] [address] Stacie Lemon MD Medication Management 10/13/2024 Refill [facility] Neurology - [place] [address] [place] [address] Pawel Wolfe MD Medication Refill from Last 3 Months Immunizations Immunization Administration Dates Next Due Covid-19, Mrna, Lnp-s, Bival ent, Moderna, 50 Mcg or 25 mcg dose 12/17/2021 Covid-19, Mrna, Lnp-s, PF, 1 00 mcg/0.5 mL Dose (Moderna) 05/05/2020,04/07/2020 Covid-19, Mrna, Lnp-s, Pf, 3 0 Mcg/0.3 Ml Dose (Huayi) 01/11/2024,08/12/2021,12/23/2020 Hepatitis A Vaccine 08/14/1999,02/13/1999 Influenza Vaccine greater than 3 yrs 11/07/2012 Influenza Vaccine, Quadrivalent, PF 10/09,11/14/2020,11/07/2019,11/16,10/21/2017,11/25/2016 Influenza, Quadrivalent, Adjuvanted 12/27/2022 Influenza, high-dose, trivalent, PF 11/07/2014 Influenza,Split Virus,Trivalent,Injectable,PF 11/16/2023 PUR FLU HIGH DOSE (FLUZONE) 11/17/2015 PUR PCV-13 07/17/2015 Pneumococcal Vaccine Adult - 23 Valent 0,11/14/2009 Pneumococcal conjugate PCV20 , polysaccharide LXM500 conjugate, adjuvant, PF 01/11/2024 RSV, Bivalent, Protein Subun it Rsvpref, Diluent Reconstit (Abrysvo) 01/11/2024 TB Skin Test 10/01/2023 TDAP Vaccine 02/12/2023 Tetanus Toxoid, Unspecified Formulation 12/08/2011 Tuberculin Skin [...] Sign Reading Time Taken Comments Blood Pressure 118/64 11/23/2024 9:14 AM CDT Pulse 74 11/23/2024 9:14 AM CDT Temperature 36.2 C (97.2 F) 11/23/2024 9:14 AM CDT Respiratory Rate 22 11/23/2024 9:14 AM CDT Oxygen Saturation 98% 11/23/2024 9:14 AM CDT Inhaled Oxygen Concentration - - Weight 91.9 kg (202 lb 9.6 oz) 11/23/2024 9:14 A M CDT Height 167.6 cm (5' 6) 10/30/2024 8:17 AM CDT Body Mass Index 32.7 10/30/2024 8:17 AM CDT Plan of Treatment Upcoming Encounters Date Type Department Care Team (Late st Contact Info) Description 02/11/2025 10:30 AM HUMAN RESOURCES FILE CLERK Office Visit [facility] - Neurology - [place] [address] [place] [address] Vickie Stallworth APRN, BLUEPRINT BLOCKER [address] [place] [address] 02/27/2025 9:00 AM HUMAN RESOURCES FILE CLERK Office Visit [facility] Medical [facility] - Endocrinology - [place] [address] [place] [address] Stacie Lemon MD #[address] [address] Health Maintenance Due Date Last Done Comments Medicare Subsequent AWV [id number] 02/22/2020 Diabetes: Eye Exam 01/14/2023 01/14/2022 DEXA Bone Density 04/10/2023 04/09/2021, 07/26/2012 SARS-COV-2 Immunization ( season) 2025 10/28/2024, 01/11/2024, 12/17/2021, Additional history exists Diabetes: Hemoglobin A1c 05/10/2025 025, 08/22/2024, 05/28/2024, Additional history exists Diabetes: Foot Exam 05/28/2025 05/28/2024 Diabetes: Nephropathy Screening 11/09/2025 11/09/2024, 08/30/2024, 09/10/2023, Additional history exists Td Immunization Every 10 Years (Adults With 1 Tdap) 02/12/2033 02/12/2023 Zoster Immunization Completed 06/23/2018, 01/18/2018, 04/16/2016 Hepatitis C Virus (HCV) Screening Completed 02/08/2023 TdaP Immunization Discontinued 02/12/2023 Pneumococcal Immunization (50+ years) Completed 01/11/2024, 07/17/2015, 12/04/2009, Additional history exists Pneumococcal Immunization Combined Discontinued 01/11/2024, 07/17/2015, 12/04/2009, Additional history exists Respiratory Syncytial Virus (RSV) Immunization (Adult) Completed 01/11/2024 Influenza Immunization Completed , 11/16/2023, 12/27/2022, Additional history exists Hepatitis B Immunization Aged Out No longer [...] Procedure Name Priority Date/Time Associated Diagnosis Comments HEMOGLOBIN, A1C 11/09/2024 12:00 AM CDT COMPLETE BLOOD COUNT (CBC) WITH DIFF 11/09/2024 12:00 AM CDT THYROID STIMULATING HORMONE (TSH) 11/09/2024 12:00 AM CDT CMP (COMPREHENSIVE METABOLIC PANEL) 11/09/2024 12:00 AM CDT URINALYSIS (UA) RANDOM 11/09/2024 12:00 AM CDT CULTURE, URINE 11/09/2024 12:00 AM CDT CULTURE, URINE 11/09/2024 12:00 AM CDT HEPATITIS C ANTIBODY Routine 02/08/2023 10:45 AM HUMAN RESOURCES FILE CLERK Encounter for hepatitis C screening test for low risk patient HM DILATED EYE EXAM 01/14/2022 1 2:00 AM HUMAN RESOURCES FILE CLERK [place] BONE DENSITOMETRY AXIAL SKELETON Routine 04/09/2021 1:42 PM HUMAN RESOURCES FILE CLERK Menopausal and postmenopausal disorder Encounter for screening for osteoporosis from Last 3 Months or Most Recently Relevant to Health Maintenance Results * URINALYSIS (UA) RANDOM (11/09/2024 12:00 AM CDT) 11/09/2024 us Provider Scan URINE ORDERABLES Final Result Performing Organization Address [facility] de Phone Number SCAN * THYROID STIMULATING HORMONE (TSH) (11/09/2024 12:00 AM CDT) 11/09/2024 us Provider Scan CHEMISTRY ORDERABLES Final Resul t Performing Organization Address [facility] de Phone Number SCAN * HEMOGLOBIN, A1C (11/09/2024 12:00 AM CDT) HGB-A1C 10.1 SCAN 11/09/2024 us Provider Scan CHEMISTRY ORDERABLES Final Resul t Performing Organization Address [facility] de Phone Number SCAN * CULTURE, URINE (11/09/2024 12:00 AM CDT) Only the most recent of2 resultswithin the time period is included. 11/09/2024 us Provider Scan MICROBIOLOGY - GENERAL ORDERABLE S Final Result Performing Organization Address [facility] de Phone Number SCAN * CMP (COMPREHENSIVE METABOLIC PANEL) (11/09/2024 12:00 AM CDT) 11/09/2024 us Provider Scan CHEMISTRY ORDERABLES Final Resul t Performing Organization Address [facility] de Phone Number SCAN * COMPLETE BLOOD COUNT (CBC) WITH DIFF (11/09/2024 12:00 AM CDT) 11/09/2024 us Provider Scan HEMATOLOGY ORDERABLES Final Resu lt Performing Organization Address [facility] de Phone Number SCAN * HEPATITIS C ANTIBODY (02/08/2023 10:45 AM HUMAN RESOURCES FILE CLERK) hepatitis C antibody 0.09 <1 S/CO [facility] ARCH [id number] B 02/08/2023 9:45 PM HUMAN RESOURCES FILE CLERK [facility] Comment: Signal/Cutoff ratio < 0.79 is Nondetected Signal/Cutoff ratio 0.80-0.99 is Grayzone Signal/Cutoff ratio > 0.99 is Detected Supplemental assays are recommended if signal/cutoff ratio is >/=1.00. Signal/cutoff ratio result >/= 5.00 is 97% predictive of positivity for recombinant immunoblot assay (RIBA) and will be reported to the [place] Department of Public Health as required. Blood Venipuncture / Unknown 02/08/2023 10:45 AM HUMAN RESOURCES FILE CLERK 02/08/2023 10:45 AM HUMAN RESOURCES FILE CLERK us Salomón Meehan MD CHEMISTRY ORDERABLES Arianne l Result Performing Organization Address [facility] de Phone Number [facility] [address] [place] [address], [place] * DILATED EYE EXAM (01/14/2022 12:00 AM HUMAN RESOURCES FILE CLERK) 01/14/2022 us Not On File Provider PROCEDURE/MINOR SURGICAL OR DERABLES Final Result Performing Organization Address City/[facility]/ZIP Co de Phone Number SCAN * [place] BONE DENSITOMETRY AXIAL SKELETON (04/09/2021 1:42 PM HUMAN RESOURCES FILE CLERK) Anatomical Region Laterality Modality BODY N/A Other 04/09/2021 8:13 PM HUMAN RESOURCES FILE CLERK Impressions 04/09/2021 8:15 PM HUMAN RESOURCES FILE CLERK IMPRESSION: Normal bone mineral density by WHO [...] of Osteoporosis (http://www.nof.org/professionals/clinical-guidelines) Narrative 04/09/2021 8:15 PM HUMAN RESOURCES FILE CLERK EXAM DESCRIPTION: [place] BONE DENSITOMETRY AXIAL SKELETON REASON FOR STUDY: Post-menopausal female, screening for osteoporosis. Lease Analyst/Model: VIPTALON (S/N [id number]) CLINICAL INFORMATION: Current height: 65 inches Maximum [...] by Nik Arrington M.D. AB: Report ID: [id number] Reading Location: [id number] Procedure Note Nik Arrington MD - 04/09/2021 EXAM DESCRIPTION: [place] BONE DENSITOMETRY AXIAL SKELETON REASON FOR STUDY: Post-menopausal female, screening for osteoporosis. Lease Analyst/Model: VIPTALON (S/N [id number]) CLINICAL INFORMATION: Current height: 65 inches Maximum [...] by Nik Arrington M.D. AB: Report ID: [id number] Reading Location: [id number] IMPRESSION: Normal bone mineral density by WHO [...] Prevention and Treatment of Osteoporosis (http://www.nof.org/professionals/clinical-guidelines) Ramirez Oliverdiana Esquivel PAC IMG DEXA ORDERABLES Arianne l Result from Last 3 Months or Most Recently Relevant to Health Maintenance [facility] Advance Directives Documents on File Type Date Recorded Patient Tire Servicer Expl anation POLST/POST/CO DNR 04/29/2023 11:04 AM POLS T, 04/21/2023 [...] measures to stabilize the patient. Care Teams Manager Group Relationship Specialty Start Date End Date Silvino Malagon MD [address] [place] [address] PCP - General Pediatrics 11/29/23 Sheng Castillo MD [address] [place] [address] Ophthalmology 06/28/19 Kg Syed DPM [address] [place] [address] Consulting Physician Podiatry 01/14/21 Pawel Wolfe MD [address] [place] [address] Consulting Physician Neurology 11/04/22 Stacie Lemon MD #[address] [phone] Consulting Physician Endocrinology 06/16/23 Vickie Stallworth, AUTOMOTIVE DISMANTLER, BLUEPRINT BLOCKER [address] [place] [address] Nurse Practitioner Advanced Practice Nurse 08/30/24
--- OUTSIDE RECORDS SUMMARY | 2025-01-11 15:48 | XMS_ITS | Encounter Summary ---
Author Organization [facility] Address [address] [place] [address] Phone Care Team Providers Care Molding Line Assistant Name Role Phone Salomón Meehan MD Primary Care Provider Sheng Castillo MD Unavailable [phone] Kg Syed DPM Unavailable [phone] Jose De La Fuente MD Unavailable Pawel Wheeler MD Unavailable [phone] Stacie Lemon MD Unavailable Silvino Malagon MD Primary Care Provider [phone] Vickie Stallworth RETAIL PLANNER, SHIPPING PROCESSOR Unavailable Reason for Visit * Reason Comments Medication Refill Encounter Details Date Type Department Care Team (Late st Contact Info) Description 08/05/2021 Refill [facility] - [facility] - [place] [address] [place] [address] Salomón Meehan MD [address] [place] [address] Medication Refill Social History Tobacco [...] st Contact Info) Description 02/11/2025 10:30 AM CORD TIRE BUILDER Office Visit [facility] - Neurology - [place] [address] [place] [address] Vickie Stallworth APRN, SHIPPING PROCESSOR [address] [place] [address] 02/27/2025 9:00 AM CORD TIRE BUILDER [facility] - Endocrinology - [place] [address] [place] [address] Stacie Lemon MD [address] [address] documented as of this encounter Visit Diagnoses Not on filedocumented in this encounter Additional Health Concerns Infection Onset Date Last Indicated Resolved Time COVID - 19 12/27/2021 12/27/2021 12/28/2021 8:17 AM CORD TIRE BUILDER Respiratory Rule-Out 12/27/2021 12/27/2021 022 12:56 AM CORD TIRE BUILDER Respiratory Rule Out - RPA 12/28/2021 12/28/2021 1 02/27/2021 10:34 PM CORD TIRE BUILDER RSV 12/28/2021 12/28/2021 01/25/2022 12:1 6 AM CORD TIRE BUILDER Respiratory Rule-Out 07/15/2023 07/15/2023 024 1:25 PM CDT Respiratory Rule-Out 08/23/2023 08/23/2023 024 6:42 AM CDT Assessment Noted Time PHQ-9 Depression Total Score: 0 11/17/19 10:00 AM CDT documented as of this encounter Care Teams Molding Line Assistant Relationship Specialty Start Date End Date Salomón Meehan MD [address] [place] [address] PCP - General Internal Medicine 10/20/14 11/14/23 Silvino Malagon MD [address] [place] [address] PCP - General Pediatrics 11/29/23 Sheng Castillo MD [address] [place] [address] Ophthalmology 06/28/19 Kg Syed DPM [address] [place] [address] Consulting Physician Podiatry 01/14/21 Jose De La Fuente MD [address] [place] [address] Consulting Physician Cardiovascular Disease - Cardiology 02/23/22 08/08/24 Pawel Wolfe MD [address] [place] [address] Consulting Physician Neurology 11/04/22 Stacie Lemon MD #[address] [address] Consulting Physician Endocrinology 06/16/23 Vickie Stallworth APRN, SHIPPING PROCESSOR [address] [place] [address] Nurse Practitioner Advanced Practice Nurse 08/30/24 documented as of this encounter
--- OUTSIDE RECORDS SUMMARY | 2025-01-11 15:48 | XMS_ITS | Encounter Summary ---
Author Organization [facility] Address [address] [place] [address] Phone Care Team Providers Care Service Person Name Role Phone Salomón Meehan MD Primary Care Provider [phone] Sheng Castillo MD Unavailable [phone] Kg Syed DPM Unavailable [phone] Jose De La Fuente MD Unavailable Pawel Wheeler MD Unavailable [phone] Stacie Lemon MD Unavailable Silvino Malagon MD Primary Care Provider Vickie Stallworth INTERIOR DESIGN FACULTY MEMBER, FAX MACHINE OPERATOR Unavailable Reason for Visit * Reason Comments Medication Refill Encounter Details Date Type Department Care Team (Late st Contact Info) Description 10/29/2020 Refill [facility] [address] [place] [address] Salomón Meehan MD [address] [place] [address] Medication Refill Social History Tobacco [...] st Contact Info) Description 02/11/2025 10:30 AM R D MANAGER Office Visit [facility] - Neurology [facility] [address] [place] [address] Vickie Stallworth APRN, FAX MACHINE OPERATOR [address] [place] [address] 02/27/2025 9:00 AM R D MANAGER Office Visit [facility] - Endocrinology [facility] [address] [place] [address] Stacie Lemon MD [address] [address] documented as of this encounter Visit Diagnoses Not on filedocumented in this encounter Additional Health Concerns Infection Onset Date Last Indicated Resolved Time COVID - 19 12/27/2021 12/27/2021 12/28/2021 8:17 AM R D MANAGER Respiratory Rule-Out 12/27/2021 12/27/2021 022 12:56 AM R D MANAGER Respiratory Rule Out - RPA 12/28/2021 12/28/2021 1 02/27/2021 10:34 PM R D MANAGER RSV 12/28/2021 12/28/2021 01/25/2022 12:1 6 AM R D MANAGER Respiratory Rule-Out 07/15/2023 07/15/2023 024 1:25 PM CDT Respiratory Rule-Out 08/23/2023 08/23/2023 024 6:42 AM CDT Assessment Noted Time PHQ-9 Depression Total Score: 0 11/17/19 19 10:00 AM CDT documented as of this encounter Care Teams Service Person Relationship Specialty Start Date End Date Salomón Meehan MD [address] [place] [address] PCP - General Internal Medicine 10/20/14 11/14/23 Silvino Malagon MD [address] [place] [address] PCP - General Pediatrics 11/29/23 Sheng Castillo MD [address] [place] [address] Ophthalmology 06/28/19 Kg Syed DPM [address] [place] [address] Consulting Physician Podiatry 01/14/21 Jose De La Fuente MD [address] [place] [address] Consulting Physician Cardiovascular Disease - Cardiology 02/23/22 08/08/24 Pawel Wolfe MD [address] [place] [address] Consulting Physician Neurology 11/04/22 Stacie Lemon MD [address] [address] Consulting Physician Endocrinology 06/16/23 Vickie Stallworth, INTERIOR DESIGN FACULTY MEMBER, FAX MACHINE OPERATOR [address] [place] [address] Nurse Practitioner Advanced Practice Nurse 08/30/24 documented as of this encounter
--- OUTSIDE RECORDS SUMMARY | 2025-01-11 15:48 | XMS_ITS ---
Author Organization [facility] Care Team Providers Care Pamphlet Distributor Name Role Phone Vesna Silvino Unavailable Unavailable Allergies and adverse reactions Code CodeSystem Substance Reaction Severity StartDate Concern Status 7258 RXNORM Naproxen Moderate 09/02/2023 active Care Team Name Role Address Phone Organization Dates Silvino Vesna PCP [address] [place], [address], [place] (Office): : : : [facility] 09/02/2023 - 10/07/2023 Immunizations Immunization Status Vaccine Details Vaccine Code CodeSystem Date Notes TB 2 Step Mantoux Skin Test completed tuberculin skin test; unspecified formulation lotNumber: [id number] expiry: 05/08/2026 Mfg: tubasol Given 0.1 ml Right Forearm subcutaneously Step 1 of Multi-step with next step required 98 CVX created date: 10/01/2023 consent date: 10/01/2023 administere d date: 10/01/2023 Mental Status Section Date Assessment Total Score Description 10/07/2023 BIMS 15 cognitively int act CAM 0 No delirium ind icated PHQ-9 00 09/08/2023 BIMS 15 cognitively int act CAM 0 No delirium ind icated PHQ-9 01 minimal depress ion Insurance Providers Coverage Status Coverage Type Relationship to Subscriber Member Identifier Subscriber Identifier Group Identifier Payer Identifier and Other information 2023 Code: 51 Code System OID:2.16.840.1 .[id number]. 5 Code System Name: Source of Payment Typology (PHDSC) Display: Managed Care (Private) Translation: Code: Code System: OID:2.16.840.1 .787476.6.255. 1336 Code System Name: Insurance Type Code ([id number]) Display Name: Health Maintenance Organization (HMO) Plan Code: SELF Code System Name: HL7 RoleCode Code System OID:[id number] .[id number] Display Name: Self [id number] Root: [id number] Payer Name: [facility] Address: [facility] [address] City: [place] State: [place] Country: [facility] Code: 81 Code System OID:[id number] .649029.3.221. 5 Code System Name: Source of Payment Typology (PHDSC) Display: Self Pay Translation: Code: Code System: OID:2.16.840.1 .101870.6.255. 1336 Code System Name: Insurance Type Code ([id number]) Display Name: Self-pay Problems Problem # Description Date of onset Resolved Date Code CodeSystem Concern Status 1 CHRONIC KIDNEY DISEASE, STAGE 3 UNSPECIFIED 09/02/[address] active 2 CONTUSION OF OTHER PART OF HEAD, SUBSEQUENT ENCOUNTER 09/02/[address] active 3 COVID-19 09/02/[address] active 4 OTHER SEIZURES 09/02/[address] active 5 PERSONAL HISTORY OF (HEALED) TRAUMATIC FRACTURE 09/02/[address] active 6 PERSONAL HISTORY OF PULMONARY EMBOLISM 09/02/[address] active 7 PERSONAL HISTORY OF TRANSIENT ISCHEMIC ATTACK (TIA), AND CEREBRAL INFARCTION WITHOUT RESIDUAL DEFICITS 09/02/[address] active 8 UNSPECIFIED COMBINED SYSTOLIC (CONGESTIVE) AND DIASTOLIC (CONGESTIVE) HEART FAILURE 09/02/[address] active 9 UNSPECIFIED SEQUELAE OF CEREBRAL INFARCTION 09/02/[address] active 10 URINARY TRACT INFECTION, SITE NOT SPECIFIED 09/02/[address] active 11 VITAMIN D DEFICIENCY, UNSPECIFIED 09/02/[address] active 12 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 03/11/19 24 09/02/[address] completed 13 DEPRESSION, UNSPECIFIED 03/11/[address] active 14 ELEVATED WHITE BLOOD CELL COUNT, UNSPECIFIED 03/11/19 24 09/02/[address] completed 15 ESSENTIAL (PRIMARY) HYPERTENSION 03/11/[address] active 16 FRACTURE OF NECK, UNSPECIFIED, SEQUELA 03/11/19 24 09/02/[address] completed 17 HYPERLIPIDEMIA, UNSPECIFIED 03/11/[address] active 18 HYPOTHYROIDISM, UNSPECIFIED 03/11/[address] active 19 OTHER CEREBRAL INFARCTION 03/11/19 24 09/02/[address] completed 20 OTHER PULMONARY EMBOLISM WITHOUT ACUTE COR PULMONALE 03/11/19 24 09/02/[address] completed 21 POLYNEUROPATHY, UNSPECIFIED 03/11/[address] active 22 RETENTION OF URINE, UNSPECIFIED 03/11/19 24 09/02/[address] completed 23 TYPE 2 DIABETES MELLITUS WITH DIABETIC CHRONIC KIDNEY DISEASE 03/11/[address] active 24 UNSPECIFIED ATRIAL FIBRILLATION 03/11/[address] active 25 UNSPECIFIED FRACTURE OF SHAFT OF HUMERUS, UNSPECIFIED ARM, SEQUELA 03/11/19 24 09/02/[address] completed 26 WEAKNESS 03/11/19 24 09/02/[address] completed Reason for Referral No Reasons for Referral Entered Social History Social History Observation Description Start Date End Date Code Code System Current Smoking Status Tobacco smoking consumption unknown 279108549 SNOMED CT Sex Assigned At Female 1940 12088-8 [facility] Gender Identity Female 11824785009929 [address] Sexual Orientation Heterosexual (finding) 25880948 SNOMED CT Vital Signs Code Code System Vitals Name Values and Units Timing Information 2339-0 [facility] Blood Sugar Rylmx=492.0 Units=mg/dL 10/07/2023 06235-8 [facility] Pain Level Value=0.0 10/07/2023 9279-1 [facility] Respiratory Rate Value=18.0 Units=/m in 10/07/2023 8462-4 [facility] Blood Pressure-Diastolic Value=76 Un its=mmHg 10/07/2023 8480-6 [facility] Blood Pressure-Systolic Urzxw=447 Un its=mmHg 10/07/2023 8310-5 [facility] Body Temperature Value=97.4 Units= F 10/07/2023 8867-4 [facility] Heart rate Value=78.0 Units=/min 15490-1 [facility] O2 % BldC Oximetry Value=98.0 Units= % 10/07/2023 52115-6 [facility] Weight Jtzwq=316.0 Units=Lbs 8302-2 [facility] Height Value=63.0 Units=Inches 03/18/2023
--- OUTSIDE RECORDS SUMMARY | 2025-01-11 15:48 | XMS_ITS | Encounter Summary ---
Author Organization [facility] Address [address] [place] [address] Phone Care Team Providers Care Web Services Architect Name Role Phone Salomón Meehan MD Primary Care Provider Sheng Castillo MD Unavailable [phone] Kg Syed DPAgusto Unavailable [phone] Jose De La Fuente MD Unavailable Pawel Wheeler MD Unavailable [phone] Stacie Lemon MD Unavailable Silvino Malagon MD Primary Care Provider [phone] Vickie Stallworth APRN, PROJ ENGINEER Unavailable Reason for Visit * Reason Comments Medication Refill Encounter Details Date Type Department Care Team (Late st Contact Info) Description 07/30/2023 Refill [facility] - [facility] [address] [place] [address] Pawel Wolfe MD [address] [place] [address] Medication Refill Social History Tobacco [...] Dept 05/26/23 Office Visit Pawel Wolfe MD [facility] Neurology [facility] [place] 04/21/23 Office Visit Hazel Acuña APRN, PERSONNEL TRAINING OFFICER [facility] 02/08/23 Office Visit Salomón Meehan MD [facility] 11/04/22 Office Visit Pawel Wolfe MD [facility]rology [facility] Showing recent visits within past 365 days and meeting all other requirements Future Appointments Date Type Provider Dept 08/15/23 Appointment Salomón Meehan MD [facility] 08/25/23 Appointment Pawel Wolfe MD [facility] Neurology [facility] [place] Showing future appointments within next 90 days and meeting all other requirements documented in this encounter Plan of Treatment Upcoming Encounters Date Type Department Care Team (Late st Contact Info) Description 02/11/2025 10:30 AM CHIEF TRANSFER AND PUMPHOUSE OPERATOR [facility] - [facility] - [place] [address] [place] [address] Vickie Stallworth, OUTBOUND SALES REPRESENTATIVE, PROJ ENGINEER [address] [place] [address] 02/27/2025 9:00 AM CHIEF TRANSFER AND PUMPHOUSE OPERATOR [facility] - Endocrinology - [place] [address] [place] [address] Stacie Lemon MD #[address] [address] documented as of this encounter Visit Diagnoses Not on filedocumented in this encounter Additional Health Concerns Infection Onset Date Last Indicated Resolved Time Respiratory Rule-Out 08/23/2023 08/23/2023 024 6:42 AM CDT Assessment Noted Time PHQ-9 Depression Total Score: 0 02/08/19 10:13 AM CHIEF TRANSFER AND PUMPHOUSE OPERATOR documented as of this encounter Care Teams Web Services Architect Relationship Specialty Start Date End Date Salomón Meehan MD [address] [place] [address] PCP - General Internal Medicine 10/20/14 11/14/23 Silvino Malagon MD [address] [place] [address] PCP - General Pediatrics 11/29/23 Sheng Castillo MD [address] [place] [address] Ophthalmology 06/28/19 Kg Syed DPM [address] [place] [address] Consulting Physician Podiatry 01/14/21 Jose De La Fuente MD [address] [place] [address] Consulting Physician Cardiovascular Disease - Cardiology 02/23/22 08/08/24 Pawel Wolfe MD [address] [place] [address] Consulting Physician Neurology 11/04/22 Stacie Lemon MD #[address] [address] Consulting Physician Endocrinology 06/16/23 Vickie Stallworth, OUTBOUND SALES REPRESENTATIVE, PROJ ENGINEER [address] [place] [address] Nurse Practitioner Advanced Practice Nurse 08/30/24 documented as of this encounter
--- OUTSIDE RECORDS SUMMARY | 2025-01-11 15:48 | XMS_ITS | Clinical Summary ---
Author Organization [facility] Address [address] [address] Care Team Providers Care Audio Production Engineer Name Role Phone Salomón Meehan MD Primary Care Provider [phone] Medications aspirin (ST OLYA) 81 MG EC [...] 1 (one) time each day Active multivitamin-ir ed-cujmijnz-alm ic acid (THERAPEUTIC-M) tablet Take 1 tablet [...] Recently Relevant to Health Maintenance Care Teams Audio Production Engineer Relationship Specialty Start Date End Date Salomón Meehan MD [address] [place] [address] PCP - General Internal Medicine 04/05/23
--- OUTSIDE RECORDS SUMMARY | 2025-01-11 15:48 | XMS_ITS | Encounter Summary ---
Author Organization [facility] Address [address] [place] [address] Phone Care Team Providers Care Oil Distributor Name Role Phone Sheng Castillo MD Unavailable [phone] Kg Syed DPAgusto Unavailable Pawel Wolfe MD Unavailable [phone] Stacie Lemon MD Unavailable Silvino Malagon MD Primary Care Provider [phone] Vickie Stallworth APRN, TELECOM MANAGER Unavailable Reason for Visit * Reason Comments Medication Refill Encounter Details Date Type Department Care Team (Late st Contact Info) Description 10/30/[address] [facility] - Neurology [facility] [address] [place] [address] Pawel Wolfe MD [address] [place] [address] Medication Refill Social History Tobacco Use Types [...] on file documented as of this encounter Functional Status * BP Answer Date of Assessment Author 126/78 10/30/2024 8:17 AM CDT Roettgers Abby I, BASKET FILLER * Temp Answer Date of Assessment Author 97.8 10/30/2024 8:17 AM CDT Roettgers , Abby I, BASKET FILLER * Pulse Answer Date of Assessment Author 70 10/30/2024 8:17 AM CDT Roettgers , Abby I, BASKET FILLER * Resp Answer Date of Assessment Author 16 10/30/2024 8:17 AM CDT Roettgers , Abby I, BASKET FILLER * SpO2 Answer Date of Assessment Author 96 10/30/2024 8:17 AM CDT Roettgers , Abby I, BASKET FILLER documented as of this encounter Mental Status * BP Answer Entry Date Author 126/78 10/30/2024 8:17 AM CDT Roettgers Abby I, BASKET FILLER * Temp Answer Entry Date Author 97.8 10/30/2024 8:17 AM CDT [place]gers , Abby I, BASKET FILLER * Pulse Answer Entry Date Author 70 10/30/2024 8:17 AM CDT Roettranjit Abby I, BASKET FILLER * SpO2 Answer Entry Date Author 96 10/30/2024 8:17 AM CDT [place]gers , Abby I, BASKET FILLER documented in this encounter Plan of Treatment Upcoming Encounters Date Type Department Care Team (Late st Contact Info) Description 02/11/2025 10:30 AM SALESPERSON SURGICAL APPLIANCES Office Visit [facility] - Neurology [facility] [address] [place] [address] Vickie Stallworth APRN, TELECOM MANAGER [address] [place] [address] 02/27/2025 9:00 AM SALESPERSON SURGICAL APPLIANCES Office Visit [facility] - Endocrinology [facility] [address] [place] [address] Stacie Lemon MD #[address] [address] documented as of this encounter Visit Diagnoses Not on filedocumented in this encounter Additional Health Concerns Assessment Noted Time PHQ-9 Depression Total Score: 0 02/08/19 10:13 AM SALESPERSON SURGICAL APPLIANCES documented as of this encounter Care Teams Oil Distributor Relationship Specialty Start Date End Date Silvino Malagon MD [address] [place] [address] PCP - General Pediatrics 11/29/23 Sheng Castillo MD [address] [place] [address] Ophthalmology 06/28/19 Kg Syed DPM [address] [place] [address] Consulting Physician Podiatry 01/14/21 Pawel Wolfe MD [address] [place] [address] Consulting Physician Neurology 11/04/22 Stacie Lemon MD #[address] [address] Consulting Physician Endocrinology 06/16/23 Vickie Stallworth, WOOD DIE MAKER, TELECOM MANAGER [address] [place] [address] Nurse Practitioner Advanced Practice Nurse 08/30/24 documented as of this encounter
--- OUTSIDE RECORDS SUMMARY | 2025-01-11 15:48 | XMS_ITS | Encounter Summary ---
Author Organization [facility] Address [address] [place] [address] Phone Care Team Providers Care Head Men'S Tennis Coach Name Role Phone Salomón Meehan MD Primary Care Provider Sheng Castillo MD Unavailable [phone] Kg Syed DPM Unavailable [phone] Jose De La Fuente MD Unavailable Pawel Wheeler MD Unavailable [phone] Stacie Lemon MD Unavailable Silvino Malagon MD Primary Care Provider [phone] Vickie Stallworth HUMAN INSIGHTS LEAD ADS MARKETING, EXCAVATOR BACKHOE OPERATOR Unavailable Reason for Visit * Reason Comments Medication Refill Encounter Details Date Type Department Care Team (Late st Contact Info) Description 05/19/2023 [facility]ill [facility] - [place] [address] [place] [address] Salomón Meehan MD [address] [place] [address] Medication Refill Social History Tobacco [...] AM CDT Medication(s) refilled and signed per [facility] Chronic Medication Refill Standing Order for Pediatricand Adult Patients. Requested Prescriptions Pending Prescriptions Disp Refills Insulin Pen Needle (B-D ULTRAFINE III SHORT PEN) 31G X 8 MM Misc [Pharmacy Med Name: BD UF SHORT PEN NEEDLE [id number]] 100 Pen Needle 1 Sig: USE TO INJECT INSULIN FOUR TIMES DAILY Diabetic Supplies Protocol Passed - 05/19/2023 11:46 AM Passed - Visit with relevant provider in past 6 months Recent Visits Date Type Provider Dept 04/21/23 Office Visit Hazel Acuña APRN, PAPERHANGER ASSISTANT [facility] 02/08/23 Office Visit Salomón Meehan MD [facility] Showing recent visits within past 182 days and meeting all other requirements Future Appointments Date Type Provider Dept 08/15/23 Appointment Salomón Meehan MD [facility] Showing future appointments within next 90 days and meeting all other requirements documented in this encounter Plan of Treatment Upcoming Encounters Date Type Department Care Team (Late st Contact Info) Description 02/11/2025 10:30 AM SUPERINTENDENT TRANSMISSION [facility] - [place] [address] [place] [address] Vickie Stallworth APRN, EXCAVATOR BACKHOE OPERATOR [address] [place] [address] 02/27/2025 9:00 AM SUPERINTENDENT TRANSMISSION Office Visit [facility] - Endocrinology - [place] [address] [place] [address] Stacie Lemon MD [address] [address] documented as of this encounter Visit Diagnoses Diagnosis Type 2 diabetes mellitus with diabetic neuropathy, unspecified documented in this encounter Additional Health Concerns Infection Onset Date Last Indicated Resolved Time Respiratory Rule-Out 07/15/2023 07/15/2023 024 1:25 PM CDT Respiratory Rule-Out 08/23/2023 08/23/2023 024 6:42 AM CDT Assessment Noted Time PHQ-9 Depression Total Score: 0 02/08/19 10:13 AM SUPERINTENDENT TRANSMISSION documented as of this encounter Care Teams Head Men'S Tennis Coach Relationship Specialty Start Date End Date Salomón Meehan MD [address] [place] [address] PCP - General Internal Medicine 10/20/14 11/14/23 Silvino Malagon MD [address] [place] [address] PCP - General Pediatrics 11/29/23 Sheng Castillo MD [address] [place] [address] Ophthalmology 06/28/19 Kg Syed DPM [address] [place] [address] Consulting Physician Podiatry 01/14/21 Jose De La Fuente MD [address] [place] [address] Consulting Physician Cardiovascular Disease - Cardiology 02/23/22 08/08/24 Pawel Wolfe MD [address] [place] [address] Consulting Physician Neurology 11/04/22 Stacie Lemon MD #[address] [address] Consulting Physician Endocrinology 06/16/23 Vickie Stallworth, HUMAN INSIGHTS LEAD ADS MARKETING, EXCAVATOR BACKHOE OPERATOR [address] [place] [address] Nurse Practitioner Advanced Practice Nurse 08/30/24 documented as of this encounter
--- OUTSIDE RECORDS SUMMARY | 2025-01-11 15:48 | XMS_ITS | Encounter Summary ---
Author Organization [facility] Address [address] [place] [address] Phone Care Team Providers Care Compensation And Benefits Administrator Name Role Phone Salomón Meehan MD Primary Care Provider Sheng Castillo MD Unavailable [phone] Kg Syed DPM Unavailable [phone] Jose De La Fuente MD Unavailable Pawel Wheeler MD Unavailable [phone] Stacie Lemon MD Unavailable Silvino Malagon MD Primary Care Provider [phone] Vickie Stallworth RADIOLOGY TECH, PIT LABORER Unavailable + [phone] Reason for Visit * Reason Comments Medication Refill Encounter Details Date Type Department Care Team (Late st Contact Info) Description 07/15/2023 Refill [facility] - [place] [address] [place] [address] Salomón Meehan MD [address] [place] [address] Medication Refill Social History Tobacco [...] st Contact Info) Description 02/11/2025 10:30 AM FINANCIAL UNDERWRITER Office Visit [facility] - Neurology - [place] [address] [place] [address] Vickie Stallworth APRN, PIT LABORER [address] [place] [address] 02/27/2025 9:00 AM FINANCIAL UNDERWRITER Office Visit [facility] - Endocrinology - [place] [address] [place] [address] Stacie Lemon MD #[address] [address] documented as of this encounter Visit Diagnoses Not on filedocumented in this encounter Additional Health Concerns Infection Onset Date Last Indicated Resolved Time Respiratory Rule-Out 07/15/2023 07/15/2023 024 1:25 PM CDT Respiratory Rule-Out 08/23/2023 08/23/2023 024 6:42 AM CDT Assessment Noted Time PHQ-9 Depression Total Score: 0 02/08/19 24 10:13 AM FINANCIAL UNDERWRITER documented as of this encounter Care Teams Compensation And Benefits Administrator Relationship Specialty Start Date End Date Salomón Meehan MD [address] [place] [address] PCP - General Internal Medicine 10/20/14 11/14/23 Silvino Malagon MD [address] [place] [address] PCP - General Pediatrics 11/29/23 Sheng Castillo MD [address] [place] [address] Ophthalmology 06/28/19 Kg Syed DPM [address] [place] [address] Consulting Physician Podiatry 01/14/21 Jose De La Fuente MD [address] [place] [address] Consulting Physician Cardiovascular Disease - Cardiology 02/23/22 08/08/24 Pawel Wolfe MD [address] [place] [address] Consulting Physician Neurology 11/04/22 Stacie Lemon MD #[address] [address] Consulting Physician Endocrinology 06/16/23 Vickie Stallworth, RADIOLOGY TECH, PIT LABORER [address] [place] [address] Nurse Practitioner Advanced Practice Nurse 08/30/24 documented as of this encounter
--- OUTSIDE RECORDS SUMMARY | 2025-01-11 15:48 | XMS_ITS | Encounter Summary ---
Author Organization [facility] Address [address] [place] [address] Phone Care Team Providers Care Dope Pourer Name Role Phone Salomón Meehan MD Primary Care Provider [phone] Sheng Castillo MD Unavailable [phone] Kg Syed DPM Unavailable [phone] Jose De La Fuente MD Unavailable Pawel Wheeler MD Unavailable [phone] Stacie Lemon MD Unavailable Silvino Malagon MD Primary Care Provider Vickie Stallworth UNIVERSAL WORKER ASSISTED LIVING, NURSING OFFICER Unavailable Reason for Visit * Reason Comments Medication Refill Encounter Details Date Type Department Care Team (Late st Contact Info) Description 10/06/2020 Refill [facility] [address] [place] [address] Salomón Meehan MD [address] [place] [address] Medication Refill Social History Tobacco [...] st Contact Info) Description 02/11/2025 10:30 AM QA REVIEWER Office Visit [facility] - Neurology [facility] #2 [place] [address] Vickie Stallworth APRN, NURSING OFFICER [address] [place] [address] 02/27/2025 9:00 AM QA REVIEWER Office Visit [facility] - Endocrinology [facility] #[address] [place] [address] Stacie Lemon MD #[address] [address] documented as of this encounter Visit Diagnoses Not on filedocumented in this encounter Additional Health Concerns Infection Onset Date Last Indicated Resolved Time COVID - 19 12/27/2021 12/27/2021 12/28/2021 8:17 AM QA REVIEWER Respiratory Rule-Out 12/27/2021 12/27/2021 022 12:56 AM QA REVIEWER Respiratory Rule Out - RPA 12/28/2021 12/28/2021 1 02/27/2021 10:34 PM QA REVIEWER RSV 12/28/2021 12/28/2021 01/25/2022 12:1 6 AM QA REVIEWER Respiratory Rule-Out 07/15/2023 07/15/2023 024 1:25 PM CDT Respiratory Rule-Out 08/23/2023 08/23/2023 024 6:42 AM CDT Assessment Noted Time PHQ-9 Depression Total Score: 0 11/17/19 19 10:00 AM CDT documented as of this encounter Care Teams Dope Pourer Relationship Specialty Start Date End Date Salomón Meehan MD [address] [place] [address] PCP - General Internal Medicine 10/20/14 11/14/23 Silvino Malagon MD [address] [place] [address] PCP - General Pediatrics 11/29/23 Sheng Castillo MD [address] [place] [address] Ophthalmology 06/28/19 Kg Syed DPM [address] [place] [address] Consulting Physician Podiatry 01/14/21 Jose De La Fuente MD [address] [place] [address] Consulting Physician Cardiovascular Disease - Cardiology 02/23/22 08/08/24 Pawel Wolfe MD #1 [place] [address] Consulting Physician Neurology 11/04/22 Stacie Lemon MD #[address] [address] Consulting Physician Endocrinology 06/16/23 Vickie Stallworth, UNIVERSAL WORKER ASSISTED LIVING, NURSING OFFICER [address] [place] [address] Nurse Practitioner Advanced Practice Nurse 08/30/24 documented as of this encounter
--- OUTSIDE RECORDS SUMMARY | 2025-01-11 15:48 | XMS_ITS | Encounter Summary ---
Author Organization [facility] Address [address] [place] [address] Phone Care Team Providers Care Farm Planner Name Role Phone Salomón Meehan MD Primary Care Provider Sheng Castillo MD Unavailable [phone] Kg Syed DPM Unavailable [phone] Jose De La Fuente MD Unavailable Pawel Wheeler MD Unavailable [phone] Stacie Lemon MD Unavailable Silvino aMlagon MD Primary Care Provider [phone] Vickie Stallworth TERMINAL SYSTEM OPERATOR, PLATE ROLLER Unavailable + [phone] Reason for Visit * Reason Comments Medication Refill Encounter Details Date Type Department Care Team (Late st Contact Info) Description 07/18/2023 Refill [facility] - [place] [address] [place] [address] Salomón Meehan MD [address] [place] [address] Medication Refill Social History Tobacco [...] AM CDT discontinued on 04/21/2023 by Hazel Acuña, TERMINAL SYSTEM OPERATOR, CIGARETTE AND FILTER CHIEF INSPECTOR for the following reason: Reorder. documented in this encounter Plan of Treatment Upcoming Encounters Date Type Department Care Team (Late st Contact Info) Description 02/11/2025 10:30 AM TANKERMAN [facility] - [place] [address] [place] [address] Vickie Stallworth APRN, PLATE ROLLER [address] [place] [address] 02/27/2025 9:00 AM TANKERMAN Office Visit [facility] - Endocrinology - [place] [address] [place] [address] Stacie Lemon MD #[address] [address] documented as of this encounter Visit Diagnoses Diagnosis Elevated brain natriuretic peptide (BNP) level Other nonspecific findings on examination of blood documented in this encounter Additional Health Concerns Infection Onset Date Last Indicated Resolved Time Respiratory Rule-Out 07/15/2023 07/15/2023 024 1:25 PM CDT Respiratory Rule-Out 08/23/2023 08/23/2023 024 6:42 AM CDT Assessment Noted Time PHQ-9 Depression Total Score: 0 02/08/19 10:13 AM TANKERMAN documented as of this encounter Care Teams Farm Planner Relationship Specialty Start Date End Date Salomón Meehan MD [address] [place] [address] PCP - General Internal Medicine 10/20/14 11/14/23 Silvino Malagon MD [address] [place] [address] PCP - General Pediatrics 11/29/23 Sheng Castillo MD [address] [place] [address] Ophthalmology 06/28/19 Kg Syed DPM [address] [place] [address] Consulting Physician Podiatry 01/14/21 Jose De La Fuente MD [address] [place] [address] Consulting Physician Cardiovascular Disease - Cardiology 02/23/22 08/08/24 Pawel Wolfe MD #[address] [place] [address] Consulting Physician Neurology 11/04/22 Stacie Lemon MD #[address] [address] Consulting Physician Endocrinology 06/16/23 Vickie Stallworth, TERMINAL SYSTEM OPERATOR, PLATE ROLLER [address] [place] [address] Nurse Practitioner Advanced Practice Nurse 08/30/24 documented as of this encounter
--- OUTSIDE RECORDS SUMMARY | 2025-01-11 15:48 | XMS_ITS | Encounter Summary ---
Author Organization [facility] Address [address] [place] [address] Phone Care Team Providers Care Power Transformer Repairer Name Role Phone Salomón Meehan MD Primary Care Provider [phone] Sheng Castillo MD Unavailable [phone] Kg Syed DPM Unavailable [phone] Jose De La Fuente MD Unavailable Pawel Wheeler MD Unavailable [phone] Stacie Lemon MD Unavailable Silvino Malagon MD Primary Care Provider Vickie Stallworth THERAPIST, CIGAR HEAD PEGGER Unavailable Reason for Visit * Reason Comments Medication Refill Encounter Details Date Type Department Care Team (Late st Contact Info) Description 06/02/[address] [facility] [address] [place] [address] Salomón Meehan MD [address] [place] [address] Medication Refill Social History Tobacco [...] st Contact Info) Description 02/11/2025 10:30 AM FEDERAL AID COORDINATOR [facility] - [place] [address] [place] [address] Vickie Stallworth, THERAPIST, CIGAR HEAD PEGGER [address] [place] [address] 02/27/2025 9:00 AM FEDERAL AID COORDINATOR Office Visit [facility] - Endocrinology - [place] [address] [place] [address] Stacie Lemon MD #[address] [address] documented as of this encounter Visit Diagnoses Not on filedocumented in this encounter Additional Health Concerns Infection Onset Date Last Indicated Resolved Time COVID - 19 12/27/2021 12/27/2021 12/28/2021 8:17 AM FEDERAL AID COORDINATOR Respiratory Rule-Out 12/27/2021 12/27/2021 022 12:56 AM FEDERAL AID COORDINATOR Respiratory Rule Out - RPA 12/28/2021 12/28/2021 1 02/27/2021 10:34 PM FEDERAL AID COORDINATOR RSV 12/28/2021 12/28/2021 01/25/2022 12:1 6 AM FEDERAL AID COORDINATOR Respiratory Rule-Out 07/15/2023 07/15/2023 024 1:25 PM CDT Respiratory Rule-Out 08/23/2023 08/23/2023 024 6:42 AM CDT Assessment Noted Time PHQ-9 Depression Total Score: 0 11/17/19 19 10:00 AM CDT documented as of this encounter Care Teams Power Transformer Repairer Relationship Specialty Start Date End Date Salomón Meehan MD [address] [place] [address] PCP - General Internal Medicine 10/20/14 11/14/23 Silvino Malagon MD [address] [place] [address] PCP - General Pediatrics 11/29/23 Sheng Castillo MD [address] [place] [address] Ophthalmology 06/28/19 Kg Syed DPM [address] [place] [address] Consulting Physician Podiatry 01/14/21 Jose De La Fuente MD [address] [place] [address] Consulting Physician Cardiovascular Disease - Cardiology 02/23/22 08/08/24 Pawel Wolfe MD [address] [place] [address] Consulting Physician Neurology 11/04/22 Stacie Lemon MD #[address] [place] [address] [address] Consulting Physician Endocrinology 06/16/23 Vickie Stallworth, THERAPIST, CIGAR HEAD PEGGER [address] [place] [address] Nurse Practitioner Advanced Practice Nurse 08/30/24 documented as of this encounter
--- OUTSIDE RECORDS SUMMARY | 2025-01-11 15:48 | XMS_ITS | Encounter Summary ---
Author Organization [facility] Address [address] [place] [address] Phone Care Team Providers Care Emergency Department Coordinator Name Role Phone Salomón Meehan MD Primary Care Provider [phone] Shneg Castillo MD Unavailable [phone] Kg Syed DPM Unavailable [phone] Jose De La Fuente MD Unavailable Pawel Wheeler MD Unavailable Stacie Lemon MD Unavailable Silvino Malagon MD Primary Care Provider Vickie Stallworth APRN, WARP STARTER Unavailable Encounter Details Date Type Department Care Team (Late st Contact Info) Description 01/18/2022 [facility] [address] [place] [address] Salomón Meehan MD [address] [place] [address] Pneumonia, unspecified organism Social History [...] Coronavirus/COVID-19? No / Unsure 01/21/2022 8:44 AM TREE CARE FOREMAN documented as of this encounter Functional Status * BP Answer Date of Assessment Author 112/60 01/21/2022 1:21 PM TREE CARE FOREMAN Brim, Thomas et K, CROSSBAND LAYER * Temp Answer Date of Assessment Author 97.2 01/21/2022 1:21 PM TREE CARE FOREMAN Brim, Thomas et K, CROSSBAND LAYER * Pulse Answer Date of Assessment Author 68 01/21/2022 1:21 PM TREE CARE FOREMAN Brim, Thomas et K, CROSSBAND LAYER * Resp Answer Date of Assessment Author 16 01/21/2022 1:21 PM TREE CARE FOREMAN Brim, Thomas et K, CROSSBAND LAYER * SpO2 Answer Date of Assessment Author 92 01/21/2022 1:21 PM TREE CARE FOREMAN Brim, Thomas et K, CROSSBAND LAYER documented as of this encounter Mental Status * BP Answer Entry Date Author 112/60 01/21/2022 1:21 PM TREE CARE FOREMAN Brim, Thomas et K, CROSSBAND LAYER * Temp Answer Entry Date Author 97.2 01/21/2022 1:21 PM TREE CARE FOREMAN Brim, Thomas et K, CROSSBAND LAYER * Pulse Answer Entry Date Author 68 01/21/2022 1:21 PM TREE CARE FOREMAN Brim, Thomas et K, CROSSBAND LAYER * SpO2 Answer Entry Date Author 92 01/21/2022 1:21 PM TREE CARE FOREMAN Brim, Thomas et K, CROSSBAND LAYER documented in this encounter Plan of Treatment Upcoming Encounters Date Type Department Care Team (Late st Contact Info) Description 02/11/2025 10:30 AM TREE CARE FOREMAN Office Visit [facility] - Neurology [facility] #2 [place] [address] Vickie Stallworth APRN, WARP STARTER [address] [place] [address] 02/27/2025 9:00 AM TREE CARE FOREMAN [facility] - Endocr[facility]ology - [place] [address] [place] [address] Stacie Lemon MD [address] [address] documented as of this encounter Procedures Procedure Name Priority Date/Time Associated Diagnosis Comments CBC WITH AUTO DIFFERENTIAL Routine 01/18/2022 10:09 AM TREE CARE FOREMAN Pneumonia, unspecified organism COMPLETE BLOOD COUNT (CBC) WITH DIFF Routine 01/18/2022 10:09 AM TREE CARE FOREMAN Pneumonia, unspecified organism BASIC METABOLIC PANEL W/ CALCIUM TOTAL Routine 01/18/2022 10:09 AM TREE CARE FOREMAN Pneumonia, unspecified organism documented in this encounter Results * (ABNORMAL) CBC WITH AUTO DIFFERENTIAL (01/18/2022 10:09 AM TREE CARE FOREMAN) WBC 7.38 4.00 - 12.00 10(3)/mcL 01/18/2022 11:15 AM TREE CARE FOREMAN [facility] RBC 4.40 3.80 - 5.30 10(6)/mcL 01/18/2022 11:15 AM TREE CARE FOREMAN [facility] HEMOGLOBIN (HGB) 12.4 12.0 - 15.8 g/dL 01/18/2022 11:15 AM TREE CARE FOREMAN [facility] HEMATOCRIT (HCT) 40.7 36.0 - 47.0 % 01/18/2022 11:15 AM TREE CARE FOREMAN [facility] MCV 92.5 82.0 - 96.0 fL 01/18/2022 11:15 AM TREE CARE FOREMAN [facility] MCH 28.2 26.0 - 34.0 pg 01/18/2022 11:15 AM TREE CARE FOREMAN [facility] MCHC 30.5(L) 31.0 - 36.0 g/dL 01/18/2022 11:15 AM TREE CARE FOREMAN [facility] PLATELET COUNT 256 140 - 440 10(3)/[facility] 01/18/2022 11:15 AM [facility] RDW 13.9 11.8 - 15.5 % 01/18/2022 11:15 AM [facility] MPV 9.9 9.7 - 12.4 fL 01/18/2022 11:15 AM [facility] NEUTROPHILS 66.1 47.0 - 73.0 % 01/18/2022 11:15 AM [facility] LYMPHOCYTES 24.1 18.0 - 42.0 % 01/18/2022 11:15 AM [facility] MONOCYTES 6.2 4.0 - 12.0 % 01/18/2022 11:15 AM [facility] EOSINOPHILS 2.8 0.0 - 5.0 % 01/18/2022 11:15 AM [facility] BASOPHILS 0.8 0.0 - 1.0 % 01/18/2022 11:15 AM [facility] ABSOLUTE NEUTROPHILS 4.87 1.60 - 7.70 10(3)/[facility] 01/18/2022 11:15 AM [facility] ABSOLUTE LYMPHOCYTES 1.78 1.30 - 3.20 10(3)/[facility] 01/18/2022 11:15 AM [facility] ABSOLUTE MONOCYTES 0.46 0.20 - 1.00 10(3)/[facility] 01/18/2022 11:15 AM [facility] ABSOLUTE EOSINOPHIL 0.21 0.00 - 0.40 10(3)/[facility] 01/18/2022 11:15 AM [facility] ABSOLUTE BASOPHILS 0.06 0.00 - 0.10 10(3)/[facility] 01/18/2022 11:15 AM [facility] NRBC PER 100 WBC 0 01/19/20 11:15 AM [facility] Blood No Phlebotomy Charged / Unknown 01/18/2022 10:09 AM TREE CARE FOREMAN 01/18/2022 11:12 AM TREE CARE FOREMAN us Salomón Meehan MD HEMATOLOGY ORDERABLES Fin al Result [facility] #[address] [place] [address] * (ABNORMAL) BASIC METABOLIC PANEL W/ CALCIUM TOTAL (01/18/2022 10:09 AM TREE CARE FOREMAN) SODIUM 136 136 - 144 mmol/L 01/18/2022 11:33 AM TREE CARE FOREMAN [facility] POTASSIUM 5.5(H) 3.5 - 5.1 mmol/L 01/18/2022 11:33 AM [facility] CHLORIDE 99(L) 100 - 110 mmol/L 01/18/2022 11:33 AM [facility] CO2, VENOUS 27 22 - 32 mmol/L 01/18/2022 11:33 AM [facility] ANION GAP 15.5 8.0 - 20.0 mmol/L 01/18/2022 11:33 AM [facility] GLUCOSE 234(H) 70 - 99 mg/dL 01/18/2022 11:33 AM [facility] BUN 20 8 - 23 mg/dL 01/18/2022 11:33 AM [facility] CREATININE, BLOOD 1.53(H) 0.60 - 1.10 mg/dL 01/18/2022 11:33 AM [facility] BUN/CREATININE RATIO 13 12 - 20 ratio 01/18/2022 11:33 AM [facility] CALCIUM 10.3 8.9 - 10.3 mg/dL 01/18/2022 11:33 AM [facility] GFR, ESTIMATED 34(L) >=60 01/18/2022 11:33 AM [facility] Comment: Creatinine Clearance is the preferred criteria for selecting drug dose adjustments in renally impaired patients. The GFR is provided as additional pertinent clinical information. GFR is reported in mL/min/1.73 sq m. Calculation based on the Chronic Kidney Disease Epidemiology Collaboration (CKD- EPI) equation refit without adjustment for race. GFR, EST. 39(L) >=60 022 11:33 AM TREE CARE FOREMAN [facility] GFR, EST. NONAFRICAN 32(L) >=60 01/18/2022 11:33 AM TREE CARE FOREMAN [facility] Blood No Phlebotomy Charged / Unknown 01/18/2022 10:09 AM TREE CARE FOREMAN 01/18/2022 11:12 AM TREE CARE FOREMAN us Salomón Meehan MD CHEMISTRY ORDERABLES Arianne l Result [facility] [address] [place] [address] documented in this encounter Visit Diagnoses Diagnosis Pneumonia, unspecified organism documented in this encounter Additional Health Concerns Infection Onset Date Last Indicated Resolved Time RSV 12/28/2021 12/28/2021 01/25/2022 12:1 6 AM TREE CARE FOREMAN Respiratory Rule-Out 07/15/2023 07/15/2023 024 1:25 PM CDT Respiratory Rule-Out 08/23/2023 08/23/2023 024 6:42 AM CDT Assessment Noted Time PHQ-9 Depression Total Score: 0 11/17/19 19 10:00 AM CDT documented as of this encounter Care Teams Emergency Department Coordinator Relationship Specialty Start Date End Date Salomón Meehan MD [address] [place] [address] PCP - General Internal Medicine 10/20/14 11/14/23 Silvino Malagon MD [address] [place] [address] PCP - General Pediatrics 11/29/23 Sheng Castillo MD [address] [place] [address] Ophthalmology 06/28/19 Kg Syed DPM [address] [place] [address] Consulting Physician Podiatry 01/14/21 Jose De La Fuente MD [address] [place] [address] Consulting Physician Cardiovascular Disease - Cardiology 02/23/22 08/08/24 Pawel Wolfe MD #[address] [place] [address] Consulting Physician Neurology 11/04/22 Stacie Lemon MD #[address] [address] Consulting Physician Endocrinology 06/16/23 Vickie Stallworth, INDUSTRIAL AUTOMATION ENGINEER, WARP STARTER [address] [place] [address] Nurse Practitioner Advanced Practice Nurse 08/30/24 documented as of this encounter
--- OUTSIDE RECORDS SUMMARY | 2025-01-11 15:48 | XMS_ITS | Encounter Summary ---
Author Organization [facility] Address [address] [place] [address] Phone Care Team Providers Care Ecommerce Analyst Name Role Phone Salomón Meehan MD Primary Care Provider Sheng Castillo MD Unavailable [phone] Kg Syed DPM Unavailable [phone] Jose De La Fuente MD Unavailable Pawel Wheeler MD Unavailable [phone] Stacie Lemon MD Unavailable Silvino Malagon MD Primary Care Provider [phone] Vickie Stallworth APRN, CHEMICAL PROCESS PROJECT ENGINEER Unavailable Reason for Visit * Reason Comments Medication Refill Encounter Details Date Type Department Care Team (Late st Contact Info) Description 11/09/2020 Refill [facility] - [facility] - [place] [address] [place] [address] Salomón Meehan MD [address] [place] [address] Medication Refill Social History Tobacco [...] st Contact Info) Description 02/11/2025 10:30 AM TAILOR APPRENTICE Office Visit [facility] - Neurology [facility] #[address] [place] [address] Vickie Stallworth APRN, CHEMICAL PROCESS PROJECT ENGINEER #[address] [place] [address] 02/27/2025 9:00 AM TAILOR APPRENTICE Office Visit [facility] - Endocrinology [facility] #[address] [place] [address] Stacie Lemon MD #[address] [address] documented as of this encounter Visit Diagnoses Not on filedocumented in this encounter Additional Health Concerns Infection Onset Date Last Indicated Resolved Time COVID - 19 12/27/2021 12/27/2021 12/28/2021 8:17 AM TAILOR APPRENTICE Respiratory Rule-Out 12/27/2021 12/27/2021 022 12:56 AM TAILOR APPRENTICE Respiratory Rule Out - RPA 12/28/2021 12/28/2021 1 02/27/2021 10:34 PM TAILOR APPRENTICE RSV 12/28/2021 12/28/2021 01/25/2022 12:1 6 AM TAILOR APPRENTICE Respiratory Rule-Out 07/15/2023 07/15/2023 024 1:25 PM CDT Respiratory Rule-Out 08/23/2023 08/23/2023 024 6:42 AM CDT Assessment Noted Time PHQ-9 Depression Total Score: 0 11/17/19 10:00 AM CDT documented as of this encounter Care Teams Ecommerce Analyst Relationship Specialty Start Date End Date Salomón Meehan MD [address] [place] [address] PCP - General Internal Medicine 10/20/14 11/14/23 Silvino Malagon MD [address] [place] [address] PCP - General Pediatrics 11/29/23 Sheng Castillo MD [address] [place] [address] Ophthalmology 06/28/19 Kg Syed DPM [address] [place] [address] Consulting Physician Podiatry 01/14/21 Jose De La Fuente MD [address] [place] [address] Consulting Physician Cardiovascular Disease - Cardiology 02/23/22 08/08/24 Pawel Wolfe MD [address] [place] [address] Consulting Physician Neurology 11/04/22 Stacie Lemon MD #[address] [address] Consulting Physician Endocrinology 06/16/23 Vickie Stallworth, CELLOPHANE WORKER, CHEMICAL PROCESS PROJECT ENGINEER [address] [place] [address] Nurse Practitioner Advanced Practice Nurse 08/30/24 documented as of this encounter
--- OUTSIDE RECORDS SUMMARY | 2025-01-11 15:48 | XMS_ITS | Encounter Summary ---
Author Organization [facility] Address [address] [place] [address] Phone Care Team Providers Care Knotting Machine Operator Name Role Phone Salomón Meehan MD Primary Care Provider [phone] Sheng Castillo MD Unavailable [phone] Kg Syed DPM Unavailable [phone] Jose De La Fuente MD Unavailable Pawel Wheeler MD Unavailable [phone] Stacie Lemon MD Unavailable Silvino Malagon MD Primary Care Provider Vickie Stallworth PUBLIC ADMINISTRATION TEACHER, RETIREMENT VILLAGE MANAGER Unavailable Reason for Visit * Reason Comments Medication Refill Encounter Details Date Type Department Care Team (Late st Contact Info) Description 05/06/2021 [facility]ill [facility] [address] [place] [address] Salomón Meehan MD [address] [place] [address] Medication Refill Social History Tobacco Use Types Packs/Day Years Used Date Smoking Tobacco: Never Smokeless Tobacco: Never Alcohol Use Standard Drinks/Week Comments Not Currently 0 (1 standard drink = 0.6 oz pur e alcohol) PHQ-2 Answer Date Recorded Total Score - Questions 1-9 0 0 09/2021 Sexually Active Control Partners Comments [...] COVID-19? No / Unsure 04/09/2021 12:52 PM VOCATIONAL TRAINER documented as of this encounter Miscellaneous Notes * Telephone Encounter - Ilana Funes RN - 05/07/2021 8:02 AM CDT Medication approved and signed per standing order protocol. documented in this encounter Plan of Treatment Upcoming Encounters Date Type Department Care Team (Late st Contact Info) Description 02/11/2025 10:30 AM VOCATIONAL TRAINER [facility] [place] [address] [place] [address] Vickie Stallworth APRN, RETIREMENT VILLAGE MANAGER [address] [place] [address] 02/27/2025 9:00 AM VOCATIONAL TRAINER Office Visit [facility] - Endocrinology - [place] [address] [place] [address] Stacie Lemon MD [address] [address] documented as of this encounter Visit Diagnoses Not on filedocumented in this encounter Additional Health Concerns Infection Onset Date Last Indicated Resolved Time COVID - 19 12/27/2021 12/27/2021 12/28/2021 8:17 AM VOCATIONAL TRAINER Respiratory Rule-Out 12/27/2021 12/27/2021 022 12:56 AM VOCATIONAL TRAINER Respiratory Rule Out - RPA 12/28/2021 12/28/2021 1 02/27/2021 10:34 PM VOCATIONAL TRAINER RSV 12/28/2021 12/28/2021 01/25/2022 12:1 6 AM VOCATIONAL TRAINER Respiratory Rule-Out 07/15/2023 07/15/2023 024 1:25 PM CDT Respiratory Rule-Out 08/23/2023 08/23/2023 024 6:42 AM CDT Assessment Noted Time PHQ-9 Depression Total Score: 0 11/17/19 19 10:00 AM CDT documented as of this encounter Care Teams Knotting Machine Operator Relationship Specialty Start Date End Date Salomón Meehan MD [address] [place] [address] PCP - General Internal Medicine 10/20/14 11/14/23 Silvino Malagon MD [address] [place] [address] PCP - General Pediatrics 11/29/23 Sheng Castillo MD [address] [place] [address] Ophthalmology 06/28/19 Kg Syed DPM [address] [place] [address] Consulting Physician Podiatry 01/14/21 Jose De La Fuente MD [address] [place] [address] Consulting Physician Cardiovascular Disease - Cardiology 02/23/22 08/08/24 Pawel Wolfe MD [address] [place] [address] Consulting Physician Neurology 11/04/22 Stacie Lemon MD [address] [address] Consulting Physician Endocrinology 06/16/23 Vickie Stallworth, PUBLIC ADMINISTRATION TEACHER, RETIREMENT VILLAGE MANAGER [address] [place] [address] Nurse Practitioner Advanced Practice Nurse 08/30/24 documented as of this encounter
--- OUTSIDE RECORDS SUMMARY | 2025-01-11 15:49 | XMS_ITS | Encounter Summary ---
Author Organization [facility] Address [address] [place] [address] Phone Care Team Providers Care Terminal Clerk Name Role Phone Salomón Meehan MD Primary Care Provider Sheng Castillo MD Unavailable [phone] Kg Syed DPM Unavailable [phone] Jose De La Fuente MD Unavailable Pawel Wheeler MD Unavailable [phone] Stacie Lemon MD Unavailable Silvino Malagon MD Primary Care Provider Vickie Stallworth RIGGER THIRD, TRAVEL AGENCY MANAGER Unavailable Reason for Visit * Reason Comments Medication Refill Encounter Details Date Type Department Care Team (Late st Contact Info) Description 10/22/2023 [facility]ill [facility] - Primary Care - [place] [address] [place] [address] Salomón Meehan MD [address] [place] [address] Medication Refill Social History Tobacco [...] Telephone Encounter - Ronald Hughes, RN - 10/24/2023 8:34 AM CDT discontinued on 04/21/2023 by Hazel Acuña, RIGGER THIRD, TIE SAWYER documented in this encounter Plan of Treatment Upcoming Encounters Date Type Department Care Team (Late st Contact Info) Description 02/11/2025 10:30 AM LOGGING EQUIPMENT OPERATOR [facility] - [place] [address] [place] [address] Vickie Stallworth APRN, TRAVEL AGENCY MANAGER [address] [place] [address] 02/27/2025 9:00 AM LOGGING EQUIPMENT OPERATOR Office Visit [facility] - Endocrinology - [place] [address] [place] [address] Stacie Lemon MD #[address] [address] documented as of this encounter Visit Diagnoses Diagnosis Elevated brain natriuretic peptide (BNP) level Other nonspecific findings on examination of blood documented in this encounter Additional Health Concerns Assessment Noted Time PHQ-9 Depression Total Score: 0 02/08/19 24 10:13 AM LOGGING EQUIPMENT OPERATOR documented as of this encounter Care Teams Terminal Clerk Relationship Specialty Start Date End Date Salomón Meehan MD [address] [place] [address] PCP - General Internal Medicine 10/20/14 11/14/23 Silvino Malagon MD [address] [place] [address] PCP - General Pediatrics 11/29/23 Sheng Castillo MD [address] [place] [address] Ophthalmology 06/28/19 Kg Syed DPM [address] [place] [address] Consulting Physician Podiatry 01/14/21 Jose De La Fuente MD [address] [place] [address] Consulting Physician Cardiovascular Disease - Cardiology 02/23/22 08/08/24 Pawel Wolfe MD [address] [place] [address] Consulting Physician Neurology 11/04/22 Stacie Lemon MD #[address] [address] Consulting Physician Endocrinology 06/16/23 Vickie Stallworth, RIGGER THIRD, TRAVEL AGENCY MANAGER [address] [place] [address] Nurse Practitioner Advanced Practice Nurse 08/30/24 documented as of this encounter
--- OUTSIDE RECORDS SUMMARY | 2025-01-11 15:49 | XMS_ITS | Encounter Summary ---
Author Organization [facility] Address [address] [place] [address] Phone Care Team Providers Care Residential Instructor Name Role Phone Salomón Meehan MD Primary Care Provider Sheng Castillo MD Unavailable [phone] Kg Syed DPM Unavailable [phone] Jose De La Fuente MD Unavailable Pawel Wheeler MD Unavailable [phone] Stacie Lemon MD Unavailable Silvino Malagon MD Primary Care Provider [phone] Vickie Stallworth MINIATURE SET CONSTRUCTOR, AIRFREIGHT LOADING SUPERVISOR Unavailable Reason for Visit * Reason Comments Medication Refill Encounter Details Date Type Department Care Team (Late st Contact Info) Description 02/28/2022 Refill [facility] - Primary Care - [place] [address] [place] [address] Salomón Meehan MD [address] [place] [address] Medication Refill Social History Tobacco [...] Coronavirus/COVID-19? No / Unsure 02/25/2022 1:16 PM FORKLIFT OPERATOR documented as of this encounter Miscellaneous Notes * Telephone Encounter - Pepper Godinez RN - 03/01/2022 9:12 AM FORKLIFT OPERATOR Refill requested too soon. LIFT OPERATOR documented in this encounter Plan of Treatment Upcoming Encounters Date Type Department Care Team (Late st Contact Info) Description 02/11/2025 10:30 AM FORKLIFT OPERATOR Office Visit [facility] - Neurology - [place] [address] [place] [address] Vickie Stallworth APRN, AIRFREIGHT LOADING SUPERVISOR [address] [place] [address] 02/27/2025 9:00 AM FORKLIFT OPERATOR Office Visit [facility] - Endocrinology - [place] [address] [place] [address] Stacie Lemon MD #[address] [address] documented as of this encounter Visit Diagnoses Not on filedocumented in this encounter Additional Health Concerns Infection Onset Date Last Indicated Resolved Time Respiratory Rule-Out 07/15/2023 07/15/2023 024 1:25 PM CDT Respiratory Rule-Out 08/23/2023 08/23/2023 024 6:42 AM CDT Assessment Noted Time PHQ-9 Depression Total Score: 0 11/17/19 19 10:00 AM CDT documented as of this encounter Care Teams Residential Instructor Relationship Specialty Start Date End Date Salomón Meehan MD [address] [place] [address] PCP - General Internal Medicine 10/20/14 11/14/23 Silvino Malagon MD [address] [place] [address] PCP - General Pediatrics 11/29/23 Sheng Castillo MD [address] [place] [address] Ophthalmology 06/28/19 Kg Syed DPM [address] [place] [address] Consulting Physician Podiatry 01/14/21 [place] [address] [place] [address] Consulting Physician Cardiovascular Disease - Cardiology 02/23/22 08/08/24 Pawel Wolfe MD [address] [place] [address] Consulting Physician Neurology 11/04/22 Stacie Lemon MD #[address] [phone] Consulting Physician Endocrinology 06/16/23 Vickie Stallworth, MINIATURE SET CONSTRUCTOR, AIRFREIGHT LOADING SUPERVISOR [address] [place] [address] Nurse Practitioner Advanced Practice Nurse 08/30/24 documented as of this encounter
--- OUTSIDE RECORDS SUMMARY | 2025-01-11 15:49 | XMS_ITS | Encounter Summary ---
Author Organization [facility] Address [address] [place] [address] Phone Care Team Providers Care Perioperative Educator Name Role Phone Salomón Meehan MD Primary Care Provider Sheng Castillo MD Unavailable [phone] Kg Syed DPM Unavailable [phone] Jose De La Fuente MD Unavailable Pawel Wheeler MD Unavailable [phone] Stacie Lemon MD Unavailable Silvino Malagon MD Primary Care Provider [phone] Vickie Stallworth APRN, FIRER DIESEL LOCOMOTIVE Unavailable [phone] Encounter Details Date Type Department Care Team (Latest Contact Info) Description 05/27/2022 [facility] [address] [place] [address] Jose De La Fuente MD [...] st Contact Info) Description 02/11/2025 10:30 AM SALES AND MANAGEMENT TRAINEE Office Visit [facility] - Neurology - [place] [address] [place] [address] Vickie Stallworth APRN, FIRER DIESEL LOCOMOTIVE [address] [place] [address] 02/27/2025 9:00 AM SALES AND MANAGEMENT TRAINEE Office Visit [facility] - Endocrinology - [place] [address] [place] [address] Stacie Lemon MD #[address] [address] documented as of this encounter Results * [...] [facility] [address] [place] [address] * (ABNORMAL) BASIC METABOLIC PANEL W/ CALCIUM TOTAL (06/01/2022 10:58 AM CDT) SODIUM 136 136 - 144 mmol/L 06/01/2022 11:29 AM CDT [facility] POTASSIUM 5.3(H) 3.5 - 5.1 mmol/L 06/01/2022 11:29 AM CDT [facility] CHLORIDE 101 100 - 110 mmol/L 06/01/2022 11:29 AM CDT [facility] CO2, VENOUS 27 22 - 32 mmol/L 06/01/2022 11:29 AM CDT [facility] ANION GAP 13.3 8.0 - 20.0 mmol/L 06/01/2022 11:29 AM CDT [facility] GLUCOSE 204(H) 70 - 99 mg/dL 06/01/2022 11:29 AM CDT [facility] BUN 24(H) 8 - 23 mg/dL 06/01/2022 11:29 AM CDT [facility] CREATININE, BLOOD 1.36(H) 0.60 - 1.10 mg/dL 06/01/2022 11:29 AM CDT [facility] BUN/CREATININE RATIO 18 12 - 20 ratio 06/01/2022 11:29 AM CDT [facility] CALCIUM 9.9 8.9 - 10.3 mg/dL 06/01/2022 11:29 AM CDT [facility] IS THE PATIENT REQUIRED TO BE FASTING? No 06/01/2022 11:29 AM CDT [facility] GFR, ESTIMATED 39(L) >=60 06/01/2022 11:29 AM CDT [facility] Comment: Creatinine Clearance is the preferred criteria for selecting drug dose adjustments in renally impaired patients. The GFR is provided as additional pertinent clinical information. GFR is reported in mL/min/1.73 sq m. Calculation based on the Chronic Kidney Disease Epidemiology Collaboration (CKD- EPI) equation refit without adjustment for race. GFR, EST. 45(L) >=60 023 11:29 AM CDT [facility] GFR, EST. NONAFRICAN 37(L) >=60 06/01/2022 11:29 AM CDT [facility] Blood Venipuncture / Unknown 06/01/2022 10:58 AM CDT 06/01/2022 11:07 AM CDT us Jose Orantes MD CHEMISTRY ORDERABLES Fi nal Result [facility] [address] [place] [address] documented in this encounter Visit Diagnoses Diagnosis [...] documented as of this encounter Care Teams Perioperative Educator Relationship Specialty Start Date End Date Salomón Meehan MD [address] [place] [address] PCP - General Internal Medicine 10/20/14 11/14/23 Silvino Malagon MD [address] [place] [address] PCP - General Pediatrics 11/29/23 Sheng Castillo MD [address] [place] [address] Ophthalmology 06/28/19 Kg Syed, DPM [address] [place] [address] Consulting Physician Podiatry 01/14/21 Jose De La Fuente MD [address] [place] [address] Consulting Physician Cardiovascular Disease - Cardiology 02/23/22 08/08/24 Pawel Wolfe MD [address] [place] [address] Consulting Physician Neurology 11/04/22 Stacie Lemon MD #[address] [address] Consulting Physician Endocrinology 06/16/23 Vickie Stallworth, CHALK MACHINE OPERATOR, FIRER DIESEL LOCOMOTIVE [address] [place] [address] Nurse Practitioner Advanced Practice Nurse 08/30/24 documented as of this encounter
--- OUTSIDE RECORDS SUMMARY | 2025-01-11 15:49 | XMS_ITS | Encounter Summary ---
Author Organization [facility] Address [address] [place] [address] Phone Care Team Providers Care Golf Cart Assembler Name Role Phone Salomón Meehan MD Primary Care Provider Sheng Castillo MD Unavailable [phone] Kg Syed DPM Unavailable [phone] Jose De La Fuente MD Unavailable Pawel Wheeler MD Unavailable [phone] Stacie Lemon MD Unavailable Silvino Malagon MD Primary Care Provider Vickie Stallworth FILTER CLEANER, FAMILY DEVELOPMENT SPECIALIST Unavailable Reason for Visit * Reason Comments Medication Refill Encounter Details Date Type Department Care Team (Late st Contact Info) Description 10/28/2023 Refill [facility] - Primary Care - [place] [address] [place] [address] Salomón Meehan MD [address] [place] [address] Medication Refill Social History Tobacco [...] st Contact Info) Description 02/11/2025 10:30 AM EMPLOYEE RELATIONS ADVISOR [facility] - [facility]rology - [place] [address] [place] [address] Vickie Stallworth APRN, FAMILY DEVELOPMENT SPECIALIST [address] [place] [address] 02/27/2025 9:00 AM EMPLOYEE RELATIONS ADVISOR Office Visit [facility] - Endocrinology [facility] [address] [place] [address] Stacie Lemon MD #[address] [address] documented as of this encounter Visit Diagnoses Diagnosis Elevated brain natriuretic peptide (BNP) level Other nonspecific findings on examination of blood documented in this encounter Additional Health Concerns Assessment Noted Time PHQ-9 Depression Total Score: 0 02/08/19 10:13 AM EMPLOYEE RELATIONS ADVISOR documented as of this encounter Care Teams Golf Cart Assembler Relationship Specialty Start Date End Date Salomón Meehan MD [address] [place] [address] PCP - General Internal Medicine 10/20/14 11/14/23 Silvino Malagon MD [address] [place] [address] PCP - General Pediatrics 11/29/23 Sheng Castillo MD [address] [place] [address] Ophthalmology 06/28/19 Kg Syed DPM [address] [place] [address] Consulting Physician Podiatry 01/14/21 Jose De La Fuente MD [address] [place] [address] Consulting Physician Cardiovascular Disease - Cardiology 02/23/22 08/08/24 Pawel Wolfe MD [address] [place] [address] Consulting Physician Neurology 11/04/22 Stacie Lemon MD #[address] [address] Consulting Physician Endocrinology 06/16/23 Vickie Stallworth, FILTER CLEANER, FAMILY DEVELOPMENT SPECIALIST [address] [place] [address] Nurse Practitioner Advanced Practice Nurse 08/30/24 documented as of this encounter
--- OUTSIDE RECORDS SUMMARY | 2025-01-11 15:49 | XMS_ITS | Clinical Summary ---
Author Organization [facility] Address [address] [place] [address] Care Team Providers Care Event Specialist Product Demonstrator Name Role Phone Silvino Malagon MD Primary Care Provide r Allergies Active Allergy Reactions Criticality Noted Date Comments Naproxen Palpitations Low Medications insulin syringe-needle U-100 (BD INSULIN SYRINGE ULTRA-FINE) 0.3 mL 31 gauge x /16 syringe USE ONE DAILY 7 Active TRUE [...] DAY 8 Active estrogens, conjugated, (PREMARIN) vaginal creamIndicatio ns:Atrophic Vaginitis associated with Menopause Apply 1 gm [...] mg total) by mouth daily 3 Active atorvastatin (LIPITOR) 80 mg tablet Take 1 tablet (80 mg total) by mouth nightly Active aspirin 81 mg enteric coated tablet Take 1 tablet (81 mg total) by mouth master machinist before breakfast Active cholecalcifero l (VITAMIN D-3) 1,000 unit capsule Take 1 [...] Inject per slidning scale, 0-70=0 units, 71-200=0 units,201-250= 4 units, 251-300-5 units,301-350= 6 units,351-400= 8 units,401-999- call MD, subQ before meals for DM, Inject per sliding scale subQ at bedtime, 201-250=2 units, 251-300= 3 units,301-350= 4 units, 351-399= 5 units, 400 plus, call 4 Active BD Ultra-Fine Short Pen Needle 31 gauge x 5/16 needle USE TO INJECT INSULIN FOUR TIMES DAILY 4 Active insulin lispro protamine-insu ryan lispro 75/25 (HumaLOG 75/25) 100 unit/mL pen for injection 22 units at breakfast and 12 units at dinner 4 Active losartan (COZAAR) 25 mg tablet Take 1 tablet (25 mg total) by mouth daily 90 tablet 3 5 12/26/19 26 Active Entresto 24-26 mg tablet Take 1 tablet by mouth 2 (two) times a day 12/26/19 25 Discontinu ed(Therapy completed) Active Problems Problem Noted Date Diagnosed Date [...] Hyperlipidemia 07/28/2017 Hypertension, essential 07/28/2017 Hypothyroidism 07/28/2017 Encounters Date Type Department Care Team Description 12/25/2024 10:15 AM COURSE DEVELOPER Ancillary Procedure [facility] Cardiology [address] [place] [address] Chronic systolic congestive heart failure (HCC); Syncope and collapse 12/25/2024 9:30 AM COURSE DEVELOPER Office Visit [facility] Card[facility] [address] [place] [address] David Pereyra MD Chronic systolic congestive heart failure (HCC) (Primary Dx); Hyperlipidemia, unspecified hyperlipidemia type; Morbid (severe) obesity due to excess calories (E66.01); Body mass index [BMI] 35.0-35.9, adult (Z68.35); Syncope and collapse from Last 3 Months Immunizations Immunization Administration Dates Next Due Hep [...] on file Legal Sex Female 9:24 AM COURSE DEVELOPER Gender Identity Not on file Sexual Orientation Not on file Occupation Industry Job Start Date Job End Date retired Not on file Not on file Not on file Obstetrics History Para Term AB IAB SAB Ectopic Multiple Livin g Live Births 4 4 4 0 0 0 0 0 0 4 4 Date Outcome GA Total Labor Labor//3rd Weight Sex Type Anes PTL Kelsey A1 A5 Name Clin Term Term Term Term Last Filed Vital Signs Vital Sign Reading Time Taken Comments Blood Pressure 100/60 12/25/2024 9:34 AM COURSE DEVELOPER Pulse 73 12/25/2024 9:34 AM COURSE DEVELOPER Temperature - - Respiratory Rate - - Oxygen Saturation 94% 12/25/2024 9:34 AM COURSE DEVELOPER Inhaled Oxygen Concentration - - Weight 93.7 kg (206 lb 8 oz) 12/25/2024 9:34 AM COURSE DEVELOPER Height 162.6 cm (5' 4) 12/25/2024 9:34 AM COURSE DEVELOPER Body Mass Index 35.45 12/25/2024 9:34 AM COURSE DEVELOPER Plan of Treatment Health Maintenance Due Date Last Done Comments Albumin Creatinine Ratio, Urine 1939 Depression Screening 1939 Fall Risk Assessment 1939 Hemoglobin A1C 1939 eGFR 1939 Dilated Eye Exam 1939 Foot Exam 1939 Hepatitis B Screening 1957 Well Visit 65+ 01/17/2019 01/17/2018 Osteoporosis Screening-Bone Density Scan 04/10/2023 04/09/2021, 04/09/2021 Covid-19 Vaccine (7 - 2024-2 6 season) 2024 01/11/2024, 12/17/2021, 08/12/2021, Additional history exists Influenza Vaccine (#1) 2024 , 12/27/2022, 11/04/2021, Additional history exists Lipid Panel 12/25/2025 12/25/2024, 07/0 09/2023, 02/08/2023, Additional history exists DTaP/Tdap/Td Vaccine (2 - Td or Tdap) 02/12/2033 02/12/2023 Pneumococcal vaccine 65+ Completed 016, 12/04/2009, 11/14/2009 Zoster Vaccine Completed 06/23/2018, 01/07, 04/16/2016 Procedures Procedure Name Priority Date/Time Associated Diagnosis Comments POCT LIPID PANEL Routine 12/25/2024 9:58 AM COURSE DEVELOPER Hyperlipidemia, unspecified hyperlipidemia type from Last 3 Months Results * (ABNORMAL) POCT lipid panel (12/25/2024 9:58 AM COURSE DEVELOPER) Cholesterol, POC 146 <200 MG/DL HDL, POC 39(A) >=40 mg/dL Triglycerides, POC 142 <=149 mg/dL LDL Cholesterol POC 78 <=129 mg/dL Chol/HDL Ratio, POC 2 NONE Non-HDL Cholesterol, POC 107 NONE mg/dL Cholesterol Total, POC 146 30 - 199 mg/dL Capillary blood 12/25/2024 9 :58 AM COURSE DEVELOPER David Pereyra MD POINT OF CARE TEST ORDERABLES Fi nal Result from Last 3 Months Insurance [facility] [place] [address] Care Teams Event Specialist Product Demonstrator Relationship Specialty Start Date End Date Silvino Malagon MD [address] [place] [address] PCP - General Family Medicine 12/20/23
--- OUTSIDE RECORDS SUMMARY | 2025-01-11 15:49 | XMS_ITS | Encounter Summary ---
Author Organization [facility] Address [address] [place] [address] Phone Care Team Providers Care Airport Refueling Handler Name Role Phone Salomón Meehan MD Primary Care Provider Sheng Castillo MD Unavailable [phone] Kg Syed DPM Unavailable [phone] Jose De La Fuente MD Unavailable Pawel Wheeler MD Unavailable [phone] Stacie Lemon MD Unavailable Silvino Malagon MD Primary Care Provider Vickie Stallworth DISC JOCKEY, SCHOOL SPEECH LANGUAGE PATHOLOGIST Unavailable Reason for Visit * Reason Comments Medication Refill Encounter Details Date Type Department Care Team (Late st Contact Info) Description 11/14/2023 Refill [facility] - Primary Care - [place] [address] [place] [address] Salomón Meehan MD [address] [place] [address] Medication Refill Social History Tobacco [...] documented as of this encounter Functional Status documented as of this encounter Mental Status * Question Answer Entry Date Author BP 128/76 11/15/2023 9:15 AM CDT Marissa Gold, RMA Temp 96.3 11/15/2023 9:15 AM CDT Marissa Gold, RMA Pulse 78 11/15/2023 9:15 AM CDT Marissa Gold, RMA SpO2 97 11/15/2023 9:15 AM CDT Marissa Gold, RMA documented in this encounter Miscellaneous Notes * Telephone Encounter - Ronald Hughes RN - 11/15/2023 8:11 AM CDT discontinued on 04/21/2023 by Hazel Acuña APRN, BRIM IRONER HAND documented in this encounter Plan of Treatment Upcoming Encounters Date Type Department Care Team (Late st Contact Info) Description 02/11/2025 10:30 AM NUCLEAR SECURITY OFFICER Office Visit [facility] - Neurology - [place] [address] [place] [address] Vickie Stallworth APRN, SCHOOL SPEECH LANGUAGE PATHOLOGIST [address] [place] [address] 02/27/2025 9:00 AM NUCLEAR SECURITY OFFICER Office Visit [facility] - Endocrinology [facility] [address] [place] [phone] Stacie Lemon MD [address] [phone] documented as of this encounter Visit Diagnoses Diagnosis Elevated brain natriuretic peptide (BNP) level Other nonspecific findings on examination of blood documented in this encounter Additional Health Concerns Assessment Noted Time PHQ-9 Depression Total Score: 0 02/08/19 10:13 AM NUCLEAR SECURITY OFFICER documented as of this encounter Care Teams Airport Refueling Handler Relationship Specialty Start Date End Date Salomón Meehan MD [address] [place] [address] PCP - General Internal Medicine 10/20/14 11/14/23 Silvino Malagon MD [address] [place] [address] PCP - General Pediatrics 11/29/23 Sheng Castillo MD [address] [place] [address] Ophthalmology 06/28/19 Kg Syed DPM [address] [place] [address] Consulting Physician Podiatry 01/14/21 Jose De La Fuente MD [address] [place] [address] Consulting Physician Cardiovascular Disease - Cardiology 02/23/22 08/08/24 Pawel Wolfe MD [address] [place] [address] Consulting Physician Neurology 11/04/22 Stacie Lemon MD [address] [phone] Consulting Physician Endocrinology 06/16/23 Vickie Stallworth, DISC JOCKEY, SCHOOL SPEECH LANGUAGE PATHOLOGIST [address] [place] [address] Nurse Practitioner Advanced Practice Nurse 08/30/24 documented as of this encounter
--- OUTSIDE RECORDS SUMMARY | 2025-01-11 15:49 | XMS_ITS | Clinical Summary ---
Author Organization [facility] Address [address] [place] [address] Care Team Providers Care Director Of Math Name Role Phone Salomón Meehan MD Primary Care Provider [phone] Allergies Active Allergy Reactions Criticality Noted Date [...] 10:10 AM CDT Height 167.6 cm (5' 6) 07/20/2019 10:10 AM CDT Body Mass Index 30.67 07/20/2019 10:10 AM CDT Plan of Treatment Health Maintenance Due Date Last Done Comments DTaP, Tdap and Td Vaccines (1 - Tdap) 1959 Annual Medicare Wellness Visit 02/03/2004 RSV Immunization or 60+ Years (1 - 1-dose 75+ series) 2014 COVID-19 Vaccine (2024- season) 2024 Influenza Adult (#1) 2024 11/16/2018, 10/21/2017, 11/25/2016, Additional history exists Hepatitis A Vaccines Aged Out 08/14/1999, 02/13/19 00 No longer eligible based on patient's age to complete this topic Pneumococcal Vaccine: 50+ Years Completed 07/17/2015, 12/04/2009 [...] this topic Medical Devices Implanted Type Area Forensic Investigator Device Identifier Shelf Expiration Date Model / Serial / Lot Lens Lens Iol Alfonso [id number] - [id number] Implanted:Qty: 1 on 07/24/2019 by Sheng Castillo MD at [facility] Lens Left: Eye [employer] - SURGICAL DIV 08/07/2023 [id number] / [id number] / N/A Description:Implant verified by MD Insurance Care Teams Director Of Math Relationship Specialty Start Date End Date Salomón Meehan MD PCP - General INTERNAL MEDICINE 04/21/19
== END 2025-01-11 15:34 | disposition home or self-care (01) ==
PROVIDERS: PCP Family Medicine; Visit Provider Family Medicine
DX: N30.00 Acute cystitis without hematuria (principal)
CPT/HCPCS: 81001; 87086